=== PATIENT | male | born 1980 | race African-American/Black ===

== ENCOUNTER 2016-08-01 10:13 | Inpatient (IN) | payer BC, MEDICAID ==
[~2016-08-01] VITALS: Ht 180.3 cm; Wt 81.6 kg
[2016-08-01] VITALS (17 sets, daily range): BP systolic 101–164; BP diastolic 58–118
[2016-08-01] MEDS ORDERED: fentaNYL PF VIAL 100 MCG/2 ML VIAL IV ONE ×2 (10:30→11:15)
[2016-08-01] MEDS ORDERED: HEPARIN for IV BOLUS 10,000 UNIT/10 ML VIAL. IV ONE ×2 (10:30→11:30)
[2016-08-01 10:32] LABS: BASO # 0.1 x10^3/uL (0.0-0.2); BASO % 1 % (0-3); EOS % 3 % (0-3); HEMATOCRIT 49.8 % (39.0-53.0); HEMOGLOBIN 17.2 g/dL (13.0-17.5); LYMPH # 4.2 x10^3/uL (1.0-4.8); LYMPH % 40 % (24-48); MEAN CORPUSCULAR HEMOGLOBIN 31 pg (25-35); MEAN CORPUSCULAR HGB CONC 35 g/dL (31-37); MEAN CORPUSCULAR VOLUME 89 fL (79-100); MONO % 6 % (0-9); NEUT % 51 % (31-73); PLATELET COUNT 299 x10^3/uL (140-400); RED BLOOD COUNT 5.61 x10^6/uL (4.30-5.70); RED CELL DISTRIBUTION WIDTH 15.5 % (11.5-14.5); WHITE BLOOD COUNT 10.5 x10^3/uL (4.0-11.0)
[2016-08-01 10:42] LABS: PROTHROMBIN TIME PATIENT 12.1 SEC (11.7-14.0)
[2016-08-01] MEDS ORDERED: LIDOCAINE 2% 20 ML VIAL. ONE (10:43)
[2016-08-01] MEDS ORDERED: IOHEXOL 300 MG/ML 100ML VIAL. ONE (10:43)
[2016-08-01] MEDS ORDERED: HEPARIN for ARTERIAL LINE 1,500 ML ONE (10:43)
[2016-08-01] MEDS ORDERED: MIDAZOLAM HCL/PF 2 MG/2 ML VIAL. ONE ×2 (10:43→10:44)
[2016-08-01] MEDS ORDERED: fentaNYL PF VIAL 100 MCG/2 ML VIAL ONE (10:44)
[2016-08-01] MEDS ORDERED: IODIXANOL 320 MG/ML 100 ML VIAL. ONE ×2 (10:45→11:28)
[2016-08-01 10:47] LABS: CALCIUM 10.1 mg/dL (8.5-10.1); CREATININE 2.6 mg/dL (0.7-1.3); GFR 27.9; POTASSIUM 3.2 mmol/L (3.5-5.1)
[2016-08-01 10:53] LABS: ALBUMIN/GLOBULIN RATIO 0.9 (1.0-1.7); TOTAL BILIRUBIN 0.6 mg/dL (0.2-1.0); TOTAL PROTEIN 8.6 g/dL (6.4-8.2)
--- NOTE | 2016-08-01 11:00 | RAD ---
Indication chest pain. A single view of the chest was obtained. No prior imaging is available. The heart and pulmonary vessels appear normal. The lungs are clear. There is no pleural fluid or pneumothorax. Visualized bony structures appear grossly intact. IMPRESSION: No acute or focal process is seen in the chest
[2016-08-01] MEDS ORDERED: LIDOCAINE 2% 20 ML VIAL. IJ ONE (11:15)
[2016-08-01] MEDS ORDERED: MIDAZOLAM HCL/PF 2 MG/2 ML VIAL. IV ONE (11:15)
[2016-08-01] MEDS ORDERED: IODIXANOL 320 MG/ML 100 ML VIAL. IART ONE (11:15)
[2016-08-01] MEDS ORDERED: TIROFIBAN 12.5MG -0.9% NS 250 ML IV ONE (11:16)
[2016-08-01] MEDS ORDERED: HEPARIN for IV BOLUS 10,000 UNIT/10 ML VIAL. ONE (11:16)
[2016-08-01] MEDS ORDERED: ATROPINE 0.5 MG/5 ML DISP.SYRIN. ONE (11:29)
[2016-08-01] MEDS ORDERED: TIROFIBAN 12.5MG -0.9% NS 250 ML IV PRN ×2 (11:30→12:30)
[2016-08-01] MEDS ORDERED: ONDANSETRON PF 4 MG/2 ML VIAL. IV PRN (11:30)
[2016-08-01] MEDS ORDERED: TICAGRELOR 90 MG TABLET. ONE (11:42)
[2016-08-01] MEDS ORDERED: TICAGRELOR 90 MG TABLET. PO ONE (11:45)
[2016-08-01] MEDS ORDERED: ASPIRIN 325 MG TABLET ONE (11:48)
[2016-08-01] MEDS ORDERED: IV NORMAL SALINE 1000ML BAG 1,000 ML IV ONE (12:00)
--- NOTE | 2016-08-01 12:15 | PDOC2 ---
CONSULT Date of Consult Date of Consult DATE: 08/01/16 TIME: 12:05 Reason for Consult Reason for Consult: Syncope and chest pain Referring Physician Referring Physician: Dr. Mcgee Identification/Chief Complaint Chief Complaint Chest pain Source Source: Patient History of Present Illness Reason for Visit: The patient is a 36 year old male who had a syncopal episode at work..He then developed chest pressure. Paramedics were called and an EKG suggested an anterior STEMI. The patient was transported to the ER. Repeat ELG confirmed a probable STEMI and the patient was treated with ASA , heparin and pain medications. The patient is a difficult historian at this time but reports a history of HTN and a family history of CAD. Past Medical History Cardiovascular: HTN Past Surgical History Past Surgical History: No pertinent history Family History Family History: Coronary Artery Disease Social History No Current Medications Current Medications Current Medications Fentanyl Citrate (Fentanyl 2ml Vial) 75 mcg 1X ONCE IV Last administered on t 10:22; Start 08/01/16 at 10:30; Stop 08/01/16 at 10:31; Status DC Heparin Sodium (Porcine) (Heparin Sodium) 4,000 unit 1X ONCE IV Last administered on 08/01/16t 10:29; Start 08/01/16 at 10:30; Stop 08/01/16 at 10:31 ; Status DC Iohexol (Omnipaque 300 Mg/ml) 100 ml STK-MED ONCE .ROUTE ; Start 08/01/16 at 10: 43; Stop 08/01/16 at 10:44; Status DC Heparin Sodium/ Sodium Chloride 1,500 ml @ As Directed STK-MED ONCE .ROUTE ; Start 08/01/16 at 10:43; Stop 08/01/16 at 10:44; Status DC Lidocaine HCl 20 ml STK-MED ONCE .ROUTE ; Start 08/01/16 at 10:43; Stop at 10:44; Status DC Midazolam HCl (Versed) 2 mg STK-MED ONCE .ROUTE ; Start 08/01/16 at 10:43; Stop 08/01/16 at 10:44; Status DC Midazolam HCl (Versed) 2 mg STK-MED ONCE .ROUTE ; Start 08/01/16 at 10:44; Stop 08/01/16 at 10:45; Status DC Fentanyl Citrate (Fentanyl 2ml Vial) 100 mcg STK-MED ONCE .ROUTE ; Start at 10:44; Stop 08/01/16 at 10:45; Status DC Iodixanol (Visipaque 320) 100 ml STK-MED ONCE .ROUTE ; Start 08/01/16 at 10:45; Stop 08/01/16 at 10:46; Status DC Heparin Sodium/ Sodium Chloride 1,000 unit 1X ONCE IART ; Start 08/01/16 at 11: 15; Stop 08/01/16 at 11:16; Status DC Midazolam HCl (Versed) 2 mg 1X ONCE IV ; Start 08/01/16 at 11:15; Stop at 11:16; Status DC Fentanyl Citrate (Fentanyl 2ml Vial) 100 mcg 1X ONCE IV ; Start 08/01/16 at 11: 15; Stop 08/01/16 at 11:16; Status DC Iodixanol (Visipaque 320) 100 ml 1X ONCE IART ; Start 08/01/16 at 11:15; Stop 08/01/16 at 11:16; Status DC Lidocaine HCl 20 ml 1X ONCE IJ ; Start 08/01/16 at 11:15; Stop 08/01/16 at 11: 16; Status DC Heparin Sodium (Porcine) (Heparin Sodium) 10,000 unit STK-MED ONCE .ROUTE ; Start 08/01/16 at 11:16; Stop 08/01/16 at 11:17; Status DC Tirofiban/Sodium Chloride 250 ml @ As Directed STK-MED ONCE IV ; Start at 11:16; Stop 08/01/16 at 11:17; Status DC Heparin Sodium (Porcine) (Heparin Sodium) 4,000 unit 1X ONCE IV ; Start at 11:30; Stop 08/01/16 at 11:31; Status DC Tirofiban/Sodium Chloride 250 ml @ 0 mls/hr CONT PRN IV PER PROTOCOL; Start 01/07 at 11:30; Stop 08/02/16 at 05:29 Ondansetron HCl (Zofran) 4 mg PRN Q8HRS PRN IV NAUSEA/VOMITING; Start 08/01/16 at 11:30; Stop 08/02/16 at 11:29 Fentanyl Citrate (Fentanyl 2ml Vial) 50 mcg PRN Q2HR PRN IV PAIN; Start at 11:30; Stop 08/02/16 at 11:29 Iodixanol (Visipaque 320) 100 ml STK-MED ONCE .ROUTE ; Start 08/01/16 at 11:28; Stop 08/01/16 at 11:29; Status DC Atropine Sulfate 0.5 mg STK-MED ONCE .ROUTE ; Start 08/01/16 at 11:29; Stop 01/07 at 11:30; Status DC Dopamine HCl/ Dextrose 250 ml @ As Directed STK-MED ONCE IV ; Start 08/01/16 at 11:31; Stop 08/01/16 at 11:32; Status DC Ticagrelor (Brilinta) 90 mg STK-MED ONCE .ROUTE ; Start 08/01/16 at 11:42; Stop 08/01/16 at 11:43; Status DC Ticagrelor (Brilinta) 180 mg 1X ONCE PO ; Start 08/01/16 at 11:45; Stop at 11:48; Status DC Dopamine HCl/ Dextrose 250 ml @ 14.884 mls/ hr 1X ONCE IV ; Start 08/01/16 at 12:00; Stop 08/02/16 at 04:47 Aspirin (Georgina Aspirin) 325 mg STK-MED ONCE .ROUTE ; Start 08/01/16 at 11:48; Stop 08/01/16 at 11:49; Status DC Sodium Chloride 1,000 ml @ 125 mls/hr 1X ONCE IV ; Start 08/01/16 at 12:00; Stop 08/01/16 at 19:59; Status UNV Allergies Allergies: Coded Allergies: No Known Drug Allergies (Unverified , 08/01/16) ROS Respiratory: YES: Shortness of breath Cardiovascular: yes Chest Pain Physical Exam General: moderate distress HEENT: Atraumatic Lungs: Clear to auscultation Heart: Other (rate 102.regular rhythm) Vitals VITALS Vital Signs Date Time Temp Pulse Resp B/P (MAP) Pulse Ox O2 Delivery O2 Flow Rate FiO2 08/01/16 11:51 73 16 95 Nasal Cannula 2.0 08/01/16 10:44 118/89 (99) 08/01/16 10:13 97.8 97.8 Labs Labs Laboratory Tests Test 08/01/16 10:16 White Blood Count 10.5 x10^3/uL (4.0-11.0) Red Blood Count 5.61 x10^6/uL (4.30-5.70) Hemoglobin 17.2 g/dL (13.0-17.5) Hematocrit 49.8 % (39.0-53.0) Mean Corpuscular Volume 89 fL (79-100) Mean Corpuscular Hemoglobin 31 pg (25-35) Mean Corpuscular Hemoglobin Concent 35 g/dL (31-37) Red Cell Distribution Width 15.5 % (11.5-14.5) Platelet Count 299 x10^3/uL (140-400) Neutrophils (%) (Auto) 51 % (31-73) Lymphocytes (%) (Auto) 40 % (24-48) Monocytes (%) (Auto) 6 % (0-9) Eosinophils (%) (Auto) 3 % (0-3) Basophils (%) (Auto) 1 % (0-3) Neutrophils # (Auto) 5.4 x10^3uL (1.8-7.7) Lymphocytes # (Auto) 4.2 x10^3/uL (1.0-4.8) Monocytes # (Auto) 0.6 x10^3/uL (0.0-1.1) Eosinophils # (Auto) 0.3 x10^3/uL (0.0-0.7) Basophils # (Auto) 0.1 x10^3/uL (0.0-0.2) Prothrombin Time 12.1 SEC (11.7-14.0) Prothromb Time International Ratio 1.0 (0.8-1.1) Activated Partial Thromboplast Time 25 SEC (24-38) Sodium Level 138 mmol/L (136-145) Potassium Level 3.2 mmol/L (3.5-5.1) Chloride Level 100 mmol/L (98-107) Carbon Dioxide Level 20 mmol/L (21-32) Anion Gap 18 (6-14) Blood Urea Nitrogen 20 mg/dL (8-26) Creatinine 2.6 mg/dL (0.7-1.3) Estimated GFR (Cockcroft-Gault) 27.9 BUN/Creatinine Ratio 8 (6-20) Glucose Level 159 mg/dL (70-99) Calcium Level 10.1 mg/dL (8.5-10.1) Magnesium Level 2.0 mg/dL (1.8-2.4) Total Bilirubin 0.6 mg/dL (0.2-1.0) Aspartate Amino Transf (AST/SGOT) 28 U/L (15-37) Alanine Aminotransferase (ALT/SGPT) 58 U/L (16-63) Alkaline Phosphatase 126 U/L (46-116) Creatine Kinase 426 U/L (39-308) Troponin I Quantitative < 0.017 ng/mL (0.000-0.055) MP-Fdn-Q-Type Natriuretic Peptide 1313 pg/mL (0-124) Total Protein 8.6 g/dL (6.4-8.2) Albumin 4.0 g/dL (3.4-5.0) Albumin/Globulin Ratio 0.9 (1.0-1.7) Lipase 580 U/L (73-393) Ethyl Alcohol Level < 10 mg/dL (0-10) Laboratory Tests Test 08/01/16 10:16 White Blood Count 10.5 x10^3/uL (4.0-11.0) Red Blood Count 5.61 x10^6/uL (4.30-5.70) Hemoglobin 17.2 g/dL (13.0-17.5) Hematocrit 49.8 % (39.0-53.0) Mean Corpuscular Volume 89 fL (79-100) Mean Corpuscular Hemoglobin 31 pg (25-35) Mean Corpuscular Hemoglobin Concent 35 g/dL (31-37) Red Cell Distribution Width 15.5 % (11.5-14.5) Platelet Count 299 x10^3/uL (140-400) Neutrophils (%) (Auto) 51 % (31-73) Lymphocytes (%) (Auto) 40 % (24-48) Monocytes (%) (Auto) 6 % (0-9) Eosinophils (%) (Auto) 3 % (0-3) Basophils (%) (Auto) 1 % (0-3) Neutrophils # (Auto) 5.4 x10^3uL (1.8-7.7) Lymphocytes # (Auto) 4.2 x10^3/uL (1.0-4.8) Monocytes # (Auto) 0.6 x10^3/uL (0.0-1.1) Eosinophils # (Auto) 0.3 x10^3/uL (0.0-0.7) Basophils # (Auto) 0.1 x10^3/uL (0.0-0.2) Prothrombin Time 12.1 SEC (11.7-14.0) Prothromb Time International Ratio 1.0 (0.8-1.1) Activated Partial Thromboplast Time 25 SEC (24-38) Sodium Level 138 mmol/L (136-145) Potassium Level 3.2 mmol/L (3.5-5.1) Chloride Level 100 mmol/L (98-107) Carbon Dioxide Level 20 mmol/L (21-32) Anion Gap 18 (6-14) Blood Urea Nitrogen 20 mg/dL (8-26) Creatinine 2.6 mg/dL (0.7-1.3) Estimated GFR (Cockcroft-Gault) 27.9 BUN/Creatinine Ratio 8 (6-20) Glucose Level 159 mg/dL (70-99) Calcium Level 10.1 mg/dL (8.5-10.1) Magnesium Level 2.0 mg/dL (1.8-2.4) Total Bilirubin 0.6 mg/dL (0.2-1.0) Aspartate Amino Transf (AST/SGOT) 28 U/L (15-37) Alanine Aminotransferase (ALT/SGPT) 58 U/L (16-63) Alkaline Phosphatase 126 U/L (46-116) Creatine Kinase 426 U/L (39-308) Troponin I Quantitative < 0.017 ng/mL (0.000-0.055) TR-Xfv-I-Type Natriuretic Peptide 1313 pg/mL (0-124) Total Protein 8.6 g/dL (6.4-8.2) Albumin 4.0 g/dL (3.4-5.0) Albumin/Globulin Ratio 0.9 (1.0-1.7) Lipase 580 U/L (73-393) Ethyl Alcohol Level < 10 mg/dL (0-10) Assessment/Plan Assessment/Plan 1. STEMI. The patient presented with syncope ( possible VT) and continues to have chest pain. EKG is consistent with a STEMI. Treated with ASA and heparin. Creatine elevated at 2.6 but in this setting the patient requires an emergency cath. Riska and benefits including renal damage discussed with the patient. He has agreed to proceed. No family is present at this time. 2. Renal disease. Creatinine 2.6. IV fluids. Continuing to monitor. 3. HTN. Adjust medication post cath. 4. Probable HLD. Check morning lipid panel. Thank you for allowing us to participate in the care of your patient. ALEXANDRA MATA MD Aug 01, 2016 12:15
--- NOTE | 2016-08-01 12:18 | PDOC4 ---
Operative Note Operative Note Brief cath note. Emergency cath in setting of a STEMI. AO. 104/72 Left main. Short, no lesions. LAD. Large vessel, mid occlusion. LCX. 20% distal disease. RCA. 20% proximal disease. PCI 3.5 x 28 bare metal multi-link vision stent. 0% residual. Post STEMI and PCI protocol. Monitoring renal function. Discussed with the patient and his family. Full report to follow. ALEXANDRA MATA MD Aug 01, 2016 12:18
[2016-08-01] MEDS ORDERED: AMIODARONE 150 MG in IV DEXTROSE 5% 100 ML IV PRN (12:30)
[2016-08-01] MEDS ORDERED: LIDOCAINE 2% 100 MG/5 ML SYRINGE. IV PRN (12:30)
[2016-08-01] MEDS ORDERED: fentaNYL PF VIAL 100 MCG/2 ML VIAL IV PRN (12:30)
[2016-08-01] MEDS ORDERED: NITROGLYCERIN SUBLINGUAL 0.4 MG BOTTLE OF 25. SL PRN (12:30)
[2016-08-01] MEDS ORDERED: 0.9 % SODIUM CHLORIDE 10 ML DISP.SYRIN. IV PRN (12:30)
[2016-08-01] MEDS ORDERED: ACETAMINOPHEN 325 MG TABLET. PO PRN (12:30)
[2016-08-01] MEDS ORDERED: ATROPINE 0.5 MG/5 ML DISP.SYRIN. IV PRN (12:30)
[2016-08-01] MEDS ORDERED: POTASSIUM CHLORIDE 20 MEQ TABLET.ER. PO ONE (12:45)
--- NOTE | 2016-08-01 12:56 | PHYS DOC ---
Past Medical History Past Medical History: Hypertension, Other Additional Past Medical Histor: "HEARING VOICES" Past Surgical History: Other Additional Past Surgical Histo: UNKNOWN Additional Information: SMOKES CIGARA, 1 BLACK & MILD A DAY Alcohol Use: Occasionally Drug Use: Methamphetamine, Phencyclidine, Other Social History Narrative: USED METH/WET/PCP OVER THE WEEKEND Adult General Chief Complaint Chief Complaint: CHEST PAIN-CARDIAC NATURE HPI HPI Patient is a 36 year old male who is a employee at [employer] he had sudden onset of chest pain and diaphoresis approximately 1 hour prior to arrival. He is difficult to get history of frame as he admits to doing wet and PCP. Timeframe of this is unclear. He admits to high blood pressure and takes atenolol. 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 Review of Systems Review of Systems Unable to obtain due to medical condition. Current Medications Current Medications Current Medications Medications (Trade) Dose Ordered Sig/Wilbur Start Time Stop Time Status Last Admin Dose Admin Fentanyl Citrate (Fentanyl 2ml Vial) 100 mcg 1X ONCE 08/01/16 11:15 08/01/16 11:16 DC 08/01/16 12:09 37.5 MCG Heparin Sodium (Porcine) (Heparin Sodium) 4,000 unit 1X ONCE 08/01/16 10:30 08/01/16 10:31 DC 08/01/16 10:29 4,000 UNIT Heparin Sodium/ Sodium Chloride 1,000 unit 1X ONCE 08/01/16 11:15 08/01/16 11:16 DC 08/01/16 12:10 1,000 UNIT Iodixanol (Visipaque 320) 100 ml 1X ONCE 08/01/16 11:15 08/01/16 11:16 DC 08/01/16 12:06 190 ML Iohexol (Omnipaque 300 Mg/ml) 100 ml STK-MED ONCE 08/01/16 10:43 08/01/16 10:44 DC Lidocaine HCl 20 ml 1X ONCE 08/01/16 11:15 08/01/16 11:16 DC 08/01/16 12:06 18 ML Midazolam HCl (Versed) 2 mg 1X ONCE 08/01/16 11:15 08/01/16 11:16 DC 08/01/16 12:09 3 MG Allergies Allergies Allergies Coded Allergies Type Severity Reaction Last Updated Verified No Known Drug Allergies 08/01/16 No Physical Exam Physical Exam Constitutional: Ill diaphoretic and toxic appearing HENT: Normocephalic, atraumatic, bilateral external ears normal, oropharynx moist, no oral exudates, nose normal. [] Eyes: PERRLA, EOMI, conjunctiva normal, no discharge. [] Neck: Normal range of motion, no tenderness, supple, no stridor. [] Cardiovascular:Heart rate regular rhythm, no murmur [] Lungs & Thorax: Bilateral breath sounds clear to auscultation [] Abdomen: Bowel sounds normal, soft, no tenderness, no masses, no pulsatile masses. [] Skin: Warm, dry, no erythema, no rash. [] Back: No tenderness, no CVA tenderness. [] Extremities: No tenderness, no cyanosis, no clubbing, ROM intact, no edema. [] Neurologic: Alert and oriented X 2, moves all extremities Current Patient Data Vital Signs Vital Signs Date Time Temp Pulse Resp B/P (MAP) Pulse Ox O2 Delivery O2 Flow Rate FiO2 08/01/16 10:44 60 28 118/89 (99) 95 Room Air 08/01/16 10:13 97.8 97.8 Lab Values Laboratory Tests Test 08/01/16 10:16 White Blood Count 10.5 x10^3/uL (4.0-11.0) Red Blood Count 5.61 x10^6/uL (4.30-5.70) Hemoglobin 17.2 g/dL (13.0-17.5) Hematocrit 49.8 % (39.0-53.0) Mean Corpuscular Volume 89 fL (79-100) Mean Corpuscular Hemoglobin 31 pg (25-35) Mean Corpuscular Hemoglobin Concent 35 g/dL (31-37) Red Cell Distribution Width 15.5 % (11.5-14.5) H Platelet Count 299 x10^3/uL (140-400) Neutrophils (%) (Auto) 51 % (31-73) Lymphocytes (%) (Auto) 40 % (24-48) Monocytes (%) (Auto) 6 % (0-9) Eosinophils (%) (Auto) 3 % (0-3) Basophils (%) (Auto) 1 % (0-3) Neutrophils # (Auto) 5.4 x10^3uL (1.8-7.7) Lymphocytes # (Auto) 4.2 x10^3/uL (1.0-4.8) Monocytes # (Auto) 0.6 x10^3/uL (0.0-1.1) Eosinophils # (Auto) 0.3 x10^3/uL (0.0-0.7) Basophils # (Auto) 0.1 x10^3/uL (0.0-0.2) Prothrombin Time 12.1 SEC (11.7-14.0) Prothrombin Time INR 1.0 (0.8-1.1) PTT 25 SEC (24-38) Sodium Level 138 mmol/L (136-145) Potassium Level 3.2 mmol/L (3.5-5.1) L Chloride Level 100 mmol/L (98-107) Carbon Dioxide Level 20 mmol/L (21-32) L Anion Gap 18 (6-14) H Blood Urea Nitrogen 20 mg/dL (8-26) Creatinine 2.6 mg/dL (0.7-1.3) H Estimated GFR (Cockcroft-Gault) 27.9 BUN/Creatinine Ratio 8 (6-20) Glucose Level 159 mg/dL (70-99) H Calcium Level 10.1 mg/dL (8.5-10.1) Magnesium Level 2.0 mg/dL (1.8-2.4) Total Bilirubin 0.6 mg/dL (0.2-1.0) Aspartate Amino Transferase (AST) 28 U/L (15-37) Alanine Aminotransferase (ALT) 58 U/L (16-63) Alkaline Phosphatase 126 U/L (46-116) H Creatine Kinase 426 U/L (39-308) H Troponin I Quantitative < 0.017 ng/mL (0.000-0.055) AD-Nms-O-Type Natriuretic Peptide 1313 pg/mL (0-124) H Total Protein 8.6 g/dL (6.4-8.2) H Albumin 4.0 g/dL (3.4-5.0) Albumin/Globulin Ratio 0.9 (1.0-1.7) L Lipase 580 U/L (73-393) H Ethyl Alcohol Level < 10 mg/dL (0-10) Laboratory Tests 08/01/16 10:16 Laboratory Tests 08/01/16 10:[address] elevation in leads V1 through V5 with some reciprocal depression in leads 3 and aVF Radiology/Procedures Radiology/Procedures Indication chest pain. A single view of the chest was obtained. No prior imaging is available. The heart and pulmonary vessels appear normal. The lungs are clear. There is no pleural fluid or pneumothorax. Visualized bony structures appear grossly intact. IMPRESSION: No acute or focal process is seen in the chest DICTATED and SIGNED BY: CHRISTIANA AVERY MD DATE: 08/01/16 1056 Course & Med Decision Making Course & Med Decision Making Patient is critically ill. ASA and heparin given. Patient taken to [facility] emergently. Critical care time of 35 mins Dragon Disclaimer Dragon Disclaimer This electronic medical record was generated, in whole or in part, using a voice recognition dictation system. Departure Departure Impression: Primary Impression: STEMI (ST elevation myocardial infarction) Additional Impression: Drug abuse Disposition: ADMITTED INPATIENT Admitting Physician: Other (REUSCH) Condition: CRITICAL Referrals: NO PCP (PCP) Problem Qualifiers Primary Impression: STEMI (ST elevation myocardial infarction) Involved coronary artery: LAD coronary artery Qualified Codes: I21.02 - ST elevation (STEMI) myocardial infarction involving left anterior descending coronary artery TAVO PETTY DO Aug 01, 2016 12:56
[2016-08-01] MEDS ORDERED: ATEN1TAB4 PO (14:07)
[2016-08-01] MEDS ORDERED: EFAV1TAB PO (14:07)
[2016-08-01] MEDS ORDERED: PARO40TA61 PO (14:07)
--- NOTE | 2016-08-01 14:50 | ACF ---
Admission Forms Criteria MYOCARDIAL INFARCTION Clinical Indications for Admission to Inpatient Care (Place 'X' for any and all applicable criteria): Admission is indicated for 1 or more of the following (1)(2)(3)(4): [X]I. Acute MD [ ]II. Contraindications and/or Inappropriate clinical situations for Observational Care in patients with Myocardial Infarction, when ANY ONE of the following is required: [ ]a) Patient with High risk of cardiac embolism (e.g, patients with previous cardiac embolism, LVEF < 40%, age >75 and patients with prosthetic valve) 18 [ ]b) Patient with Moderate risk including DM patient, CAD and patient aged 65-75 18 [ ]c) Patient with any change in cardiac biomarker especially troponin should be managed as high risk in an inpatient setting 19 [ ]d) Physician judgement irrespective of ECG and other diagnostic findings 20 [ ]III.General contraindications and/or Inappropriate clinical situations for Observational Care in patients with Myocardial Infarction, when ANY ONE of the following is required: [ ]a) Prediction of prolongation of LOS based on ANY ONE of the following may be considered as a contraindication for observational care 2, 3, 4, 5, 6, 7, 8, 9, 10, 11 [ ]i) Age > 65 yrs. [ ]ii) Patient arriving by ambulance [ ]iii) Patient with high acuity [ ]iv) Patient requiring vital sign monitoring [ ]v) Patient on IV medication [ ]b) Systolic blood pressures greater than or equal to 180mmHg 3,12 [ ]c) Patient with altered mental status including delirium and other alteration of consciousness, (3) [ ]d) Patient whose discharge disposition will be to a shelter home or rehabilitation home should not be managed in Emergency Department Observation Unit. CMS rule requires 3 days hospital stay before such placement. 3,13 [ ]e) Patient with failure to thrive due to broad array of etiologies 3 ,16,17 [ ]f) Inability to ambulate 3,14 Extended stay beyond goal length of stay may be needed for (1)(18)(20)(24)(25): [ ]a) Hemodynamic instability, persisting symptoms after intensive medical management, or recurring severe, prolonged symptoms [ ]b) Intravascular procedural complications such as acute vessel closure, stent thrombosis, stent malposition, or vessel dissection (26)(27)(28) [ ]c) Extravascular procedural complications such as retroperitoneal hematoma , pericardial effusion, or cardiac tamponade [ ]d) Entry site complications causing bleeding, hematoma or distal ischemia and requiring ongoing monitoring, surgical repair or surgical thrombectomy. Dangerous arrhythmia [ ]e) Complicated percutaneous coronary intervention (e.g., unsuccessful percutaneous coronary intervention or percutaneous coronary intervention of non- [place] vessel) [ ]f) Urgent or emergent surgery for complications of MD (e.g., ventricular rupture, valvular insufficiency) [ ]g) Surgical revascularization via coronary artery bypass graft [ ]h) Heart failure (e.g., pulmonary edema) [ ]i) Unstable pulmonary comorbidities, including COPD or pneumonia (31) [ ]j) Acute renal failure The original [facility] content created by [facility] has been revised. The portions of the content which have been revised are identified through the use of italic text or in bold, and [facility] has neither reviewed nor approved the modified material. All other unmodified content is copyright [employer] Please see references footnoted in the original [employer] edition 2016 Admission Criteria Met?: Yes REGLA HEREDIA Aug 01, 2016 14:50
[2016-08-01] MEDS: IV NORMAL SALINE 1000ML BAG 1,000 ML IV SCH (14:56)
[2016-08-01] MEDS: LISINOPRIL 5 MG TABLET. PO SCH (14:57)
--- NOTE | 2016-08-01 16:08 | EKG ---
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
[2016-08-01] MEDS ORDERED: LORazepam 0.5 MG TABLET PO ONE (18:15)
[2016-08-01] MEDS: fentaNYL PF VIAL 100 MCG/2 ML VIAL IV PRN ×3 (19:15→22:28)
[2016-08-01] MEDS: LORazepam 0.5 MG TABLET PO PRN (20:44)
[2016-08-01] MEDS: ATORVASTATIN CALCIUM 20 MG TABLET PO SCH (20:45)
[2016-08-01] MEDS: METOPROLOL TART IMMED RELEASE 25 MG TABLET. PO SCH (20:45)
--- NOTE | 2016-08-01 22:04 | HP ---
ADMIT DATE: 08/01/2016 CHIEF COMPLAINT: Chest pain. HISTORY OF PRESENT ILLNESS: The patient is a 36-year-old gentleman with past medical history of hypertension who presented after a syncopal episode at work. 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 He denies any chest pain or other pain during the entire episode. He then passed out and the EMS was called. EKG initially suggested anterior STEMI and he was brought to the ER. The patient was treated with aspirin, started on heparin, pain medications and taken to the [facility] by Dr. Mirza. LAD had an occlusion mid and a bare metal stent was placed. The patient is now recovering in the ICU. PAST MEDICAL HISTORY: Hypertension. FAMILY HISTORY: Mother with heart disease at age 50. SOCIAL HISTORY: Lives with his parents, smokes about a pack a day, uses meth, has been partying over the past few days with meth and alcohol. ALLERGIES: No known drug allergies. MEDICATIONS: The patient has a prescription for atenolol, which he is not taking also HIV medication and Paxil. REVIEW OF SYSTEMS: Currently, completely resolved. He is requesting a nicotine patch. PHYSICAL EXAMINATION: VITAL SIGNS: From today show a blood pressure of 147/104, heart rate at 78, respiratory rate at 20. He is afebrile. GENERAL: This is a well-nourished 36-year-old gentleman, awake, alert, in no acute distress. HEENT: Shows no scleral icterus. NECK: Supple. LUNGS: Clear to auscultation bilaterally. HEART: Regular rate and rhythm. ABDOMEN: Has positive bowel sounds, soft, nontender. EXTREMITIES: Show no edema. SKIN: Warm, soft and dry without any rash. LABORATORY DATA: CBC with a WBC of 10.5, hemoglobin 17.2, platelets of 299. Chemistries with a BUN and creatinine of 20 and 2.6. Electrolytes with a potassium of 3.2. LFTs essentially within normal. Toxicology, alcohol is negative. IMAGING: Chest x-ray with no acute focal process. ASSESSMENT AND PLAN: The patient is a 36-year-old gentleman with multiple risk factors who presented with ST-elevation myocardial infarction. He is now status post bare metal stent placement to the left anterior descending. Discussed with him that his risk factors including hypertension and hyperlipidemia will have to be controlled. We will start on the appropriate medications. Discussed with him that atenolol is actually a very useful medication he actually may need additional blood pressure control. He is currently pain free. We will monitor in the ICU overnight. The patient is a tobacco smoker, unfortunately we will not be able to give him nicotine patch for now, Ativan p.r.n. should be okay. We will continue his HIV medication as well as Paxil. RIDDHI MOORE MD DR: UR/nts JOB#: [id number] / [id number]
[2016-08-01] MEDS ORDERED: LISINOPRIL 2.5 MG TABLET PO ONE (22:30)
[2016-08-02] VITALS (24 sets, daily range): BP systolic 109–151; BP diastolic 63–102
[2016-08-02] MEDS: fentaNYL PF VIAL 100 MCG/2 ML VIAL IV PRN ×2 (00:20→08:39)
[2016-08-02] MEDS ORDERED: NITROGLYCERIN SUBLINGUAL 0.4 MG BOTTLE OF 25. SL ONE (02:45)
[2016-08-02 03:43] LABS: BARBITURATES NEG (NEG); BENZODIAZEPINES POS (NEG); CANNABINOIDS NEG (NEG); COCAINE NEG (NEG); METHADONE NEG (NEG); OPIATES NEG (NEG); PHENCYCLIDINE NEG (NEG)
[2016-08-02] MEDS: IV NORMAL SALINE 1000ML BAG 1,000 ML IV SCH ×2 (05:26→10:57)
[2016-08-02 05:50] LABS: BASO # 0.1 x10^3/uL (0.0-0.2); BASO % 1 % (0-3); EOS % 2 % (0-3); HEMATOCRIT 45.1 % (39.0-53.0); HEMOGLOBIN 15.5 g/dL (13.0-17.5); LYMPH # 2.6 x10^3/uL (1.0-4.8); LYMPH % 23 % (24-48); MEAN CORPUSCULAR HEMOGLOBIN 31 pg (25-35); MEAN CORPUSCULAR HGB CONC 34 g/dL (31-37); MEAN CORPUSCULAR VOLUME 90 fL (79-100); MONO % 8 % (0-9); NEUT % 67 % (31-73); PLATELET COUNT 238 x10^3/uL (140-400); RED BLOOD COUNT 5.04 x10^6/uL (4.30-5.70); RED CELL DISTRIBUTION WIDTH 15.8 % (11.5-14.5)
[2016-08-02 06:12] LABS: CALCIUM 9.1 mg/dL (8.5-10.1); CREATININE 1.7 mg/dL (0.7-1.3); GFR 55.1; POTASSIUM 3.8 mmol/L (3.5-5.1)
[2016-08-02 06:14] LABS: MAGNESIUM 2.1 mg/dL (1.8-2.4)
[2016-08-02 06:18] LABS: CHOLESTEROL/HDL RATIO 4.7
[2016-08-02] MEDS: PARoxetine 20 MG TABLET PO SCH (08:29)
[2016-08-02] MEDS: LISINOPRIL 5 MG TABLET. PO SCH (08:30)
[2016-08-02] MEDS: TENOFOVIR PO SCH (08:30)
[2016-08-02] MEDS: EFAVIRENZ PO SCH (08:30)
[2016-08-02] MEDS: EMTRICITAB PO SCH (08:30)
[2016-08-02] MEDS: ASPIRIN ENTERIC COATED 81 MG TABLET.DR. PO SCH (08:30)
[2016-08-02] MEDS: METOPROLOL TART IMMED RELEASE 25 MG TABLET. PO SCH ×2 (08:31→21:37)
[2016-08-02] MEDS: TICAGRELOR 90 MG TABLET. PO SCH ×2 (08:31→21:33)
[2016-08-02] MEDS ORDERED: NICOTINE 14MG PATCH. TD SCH (09:00)
--- NOTE | 2016-08-02 11:59 | PDOC ---
CARDIO Progress Notes Date and Time Date of Service 08/02/2016 Time of Evaluation 1159 Subjective Subjective: No Chest Pain, No shortness of breath, No Palpitations, No Dizziness Vitals Vitals Vital Signs Date Time Temp Pulse Resp B/P (MAP) Pulse Ox O2 Delivery O2 Flow Rate FiO2 08/02/16 10:58 73 26 137/92 (107) 95 Room Air 08/02/16 08:00 97.6 97.6 08/01/16 12:09 2.0 Weight Weight [ ] Input and Output Intake and Output Intake and Output 08/02/16 06:59 Intake Total 2516.9 ml Output Total 1200 ml Balance 1316.9 ml Intake Oral 650 ml IV Total 1866.9 ml Output Urine Total 1200 ml # Bowel Movements 1 Laboratory Labs Laboratory Tests Test 08/01/16 19:55 08/02/16 03:30 08/02/16 05:30 Troponin I Quantitative 532.010 ng/mL (0.000-0.055) 173.370 ng/mL (0.000-0.055) Urine Opiates Screen Neg (NEG) Urine Methadone Screen Neg (NEG) Urine Barbiturates Neg (NEG) Urine Phencyclidine Screen Neg (NEG) Urine Amphetamine/Methamphetamine Pos (NEG) Urine Benzodiazepines Screen Pos (NEG) Urine Cocaine Screen Neg (NEG) Urine Cannabinoids Screen Neg (NEG) Urine Ethyl Alcohol Neg (NEG) White Blood Count 11.0 x10^3/uL (4.0-11.0) Red Blood Count 5.04 x10^6/uL (4.30-5.70) Hemoglobin 15.5 g/dL (13.0-17.5) Hematocrit 45.1 % (39.0-53.0) Mean Corpuscular Volume 90 fL (79-100) Mean Corpuscular Hemoglobin 31 pg (25-35) Mean Corpuscular Hemoglobin Concent 34 g/dL (31-37) Red Cell Distribution Width 15.8 % (11.5-14.5) Platelet Count 238 x10^3/uL (140-400) Neutrophils (%) (Auto) 67 % (31-73) Lymphocytes (%) (Auto) 23 % (24-48) Monocytes (%) (Auto) 8 % (0-9) Eosinophils (%) (Auto) 2 % (0-3) Basophils (%) (Auto) 1 % (0-3) Neutrophils # (Auto) 7.4 x10^3uL (1.8-7.7) Lymphocytes # (Auto) 2.6 x10^3/uL (1.0-4.8) Monocytes # (Auto) 0.8 x10^3/uL (0.0-1.1) Eosinophils # (Auto) 0.2 x10^3/uL (0.0-0.7) Basophils # (Auto) 0.1 x10^3/uL (0.0-0.2) Sodium Level 138 mmol/L (136-145) Potassium Level 3.8 mmol/L (3.5-5.1) Chloride Level 103 mmol/L (98-107) Carbon Dioxide Level 23 mmol/L (21-32) Anion Gap 12 (6-14) Blood Urea Nitrogen 20 mg/dL (8-26) Creatinine 1.7 mg/dL (0.7-1.3) Estimated GFR (Cockcroft-Gault) 55.1 Glucose Level 117 mg/dL (70-99) Calcium Level 9.1 mg/dL (8.5-10.1) Magnesium Level 2.1 mg/dL (1.8-2.4) Triglycerides Level 276 mg/dL (0-150) Cholesterol Level 185 mg/dL (0-200) LDL Cholesterol, Calculated 91 mg/dL (0-100) VLDL Cholesterol, Calculated 55 mg/dL (0-40) Non-HDL Cholesterol Calculated 146 mg/dL (0-129) HDL Cholesterol 39 mg/dL (40-60) Cholesterol/HDL Ratio 4.7 Physical Exam HEENT: Neck Supple W Full Motion Chest: Symmetric LUNGS: Clear to Auscultation Heart: S1S2, RRR, no murmurs, other (tele: SR) Abdomen: Soft N/T Extremities: 2+ Dorsalis Pedis, 2+ Posterior Tibial, Other (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 STEMI troponin peaked > 500 BMS to mid LAD; DAPT for at least the next 30 days, then ASA indefinitely echo pending to evaluate LV function BB, ACEI and statin therapy 2. mixed hyperlipidemia statin therapy 3. HTN not well controlled increased BB dose 4. polysubstance abuse tobacco - nicoderm patch meth May transfer to [facility] ? 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
[2016-08-02] MEDS: NICOTINE 14MG PATCH. TD SCH (12:25)
[2016-08-02] MEDS ORDERED: ACETAMINOPHEN 500 MG TABLET PO PRN (12:30)
--- NOTE | 2016-08-02 13:17 | CARD ---
APPROVED REPORT EXAM: Two-dimensional and M-mode echocardiogram with Doppler and color Doppler. Other Information Quality : Good INDICATION Status/Post MD 2D DIMENSIONS RVDd2.9 (2.9-3.5cm)Left Atrium(2D)3.5 (1.6-4.0cm) IVSd1.6 (0.7-1.1cm)Aortic Root(2D)3.5 (2.0-3.7cm) LVDd4.7 (3.9-5.9cm)LVOT Diameter2.0 (1.8-2.4cm) PWd1.3 (0.7-1.1cm)LVDs3.7 (2.5-4.0cm) FS (%) 21.1 %SV43.3 ml LVEF(%)40.0 (>50%) Aortic Valve AoV Peak Juancho.113.6cm/Leni Peak GR.5.2mmHg Mitral Valve MV E Tgpekery84.6cm/sMV DECEL IAME324um MV A Eoksybkf29.9cm/sE/A Ratio1.0 TDI Lateral E' P. V5.11cm/sMedial E' P. V4.01cm/s E/Lateral E'14.6E/Medial E'18.6 Tricuspid Valve TR P. Paqomwpz689ep/sRAP [id number] TR Peak Gr.98yhRhLQYK74tfSh Pulmonary Vein S1 Eqwtqqju98.5cm/sS2 Hudbojcy65.87cm/s D2 Zxgdawpx16.9cm/s LEFT VENTRICLE The left ventricle is normal size. There is moderate concentric left ventricular hypertrophy. The eje ction fraction is moderately impaired. The Ejection Fraction is 35-40%. There is global hypokinesis o f the left ventricle. There is moderate to severe hypokinesis of the basal to distal anterior wall, s eptum and apex. Transmitral Doppler flow pattern is Grade I-abnormal relaxation pattern. RIGHT VENTRICLE The right ventricle is normal size. The right ventricular systolic function is normal. ATRIA The left atrium size is normal. The right atrium size is normal. The interatrial septum is intact wit h no evidence for an atrial septal defect or patent foramen ovale as noted on 2-D or Doppler imaging. AORTIC VALVE The aortic valve is normal in structure and function. Doppler and Color Flow revealed no significant aortic regurgitation. There is no significant aortic valvular stenosis. MITRAL VALVE The mitral valve is normal in structure and function. There is no evidence of mitral valve prolapse. There is no mitral valve stenosis. Doppler and Color-flow revealed mild mitral regurgitation. TRICUSPID VALVE The tricuspid valve is normal in structure and function. Doppler and Color Flow revealed trace tricus pid regurgitation. There is mild pulmonary hypertension. The PA pressure was estimated at 42 mmHg. Th ere is no tricuspid valve stenosis. PULMONIC VALVE Doppler and Color Flow revealed mild pulmonic valvular regurgitation. There is no pulmonic valvular s tenosis. GREAT VESSELS The aortic root is normal in size. The ascending aorta is normal in size. The IVC is normal in size a nd collapses >50% with inspiration. PERICARDIAL EFFUSION There is no evidence of significant pericardial effusion. Critical Notification Critical Value: No <Conclusion> The ejection fraction is moderately impaired. The Ejection Fraction is 35-40%. There is global hypokinesis of the left ventricle. There is moderate to severe hypokinesis of the bas al to distal anterior wall, septum and apex. Doppler and Color Flow revealed trace tricuspid regurgitation. There is mild pulmonary hypertension. The PA pressure was estimated at 42 mmHg.
--- NOTE | 2016-08-02 13:56 | PDOC ---
PROGRESS NOTES Chief Complaint Chief Complaint cc: chest pain A/P 1. STEMI S/P BMS to mid LAD; DAPT , echo pending. Monitor for any athymias, no acute events overnight. 2. mixed hyperlipidemia: statin Therapy 3. HTN: not controlled. 4. polysubstance abuse: nicotine patch 5. Pain chest pain : IV fentanyl prn,limit narcotics. 6. GARRET: due to VMN, IV HYDRATION BMP IN AM Vitals Vitals Vital Signs Date Time Temp Pulse Resp B/P (MAP) Pulse Ox O2 Delivery O2 Flow Rate FiO2 08/02/16 13:00 78 22 117/73 (88) 95 08/02/16 12:00 98.0 Room Air 98.0 08/02/16 12:00 2.0 Physical Exam General: Alert, Oriented X3, Cooperative, moderate distress Heart: Normal S1, Normal S2, Other Lungs: Clear Abdomen: Normal bowel sounds Extremities: No clubbing, No cyanosis Labs LABS Laboratory Tests Test 08/01/16 19:55 08/02/16 03:30 08/02/16 05:30 Troponin I Quantitative 532.010 ng/mL (0.000-0.055) 173.370 ng/mL (0.000-0.055) Urine Opiates Screen Neg (NEG) Urine Methadone Screen Neg (NEG) Urine Barbiturates Neg (NEG) Urine Phencyclidine Screen Neg (NEG) Urine Amphetamine/Methamphetamine Pos (NEG) Urine Benzodiazepines Screen Pos (NEG) Urine Cocaine Screen Neg (NEG) Urine Cannabinoids Screen Neg (NEG) Urine Ethyl Alcohol Neg (NEG) White Blood Count 11.0 x10^3/uL (4.0-11.0) Red Blood Count 5.04 x10^6/uL (4.30-5.70) Hemoglobin 15.5 g/dL (13.0-17.5) Hematocrit 45.1 % (39.0-53.0) Mean Corpuscular Volume 90 fL (79-100) Mean Corpuscular Hemoglobin 31 pg (25-35) Mean Corpuscular Hemoglobin Concent 34 g/dL (31-37) Red Cell Distribution Width 15.8 % (11.5-14.5) Platelet Count 238 x10^3/uL (140-400) Neutrophils (%) (Auto) 67 % (31-73) Lymphocytes (%) (Auto) 23 % (24-48) Monocytes (%) (Auto) 8 % (0-9) Eosinophils (%) (Auto) 2 % (0-3) Basophils (%) (Auto) 1 % (0-3) Neutrophils # (Auto) 7.4 x10^3uL (1.8-7.7) Lymphocytes # (Auto) 2.6 x10^3/uL (1.0-4.8) Monocytes # (Auto) 0.8 x10^3/uL (0.0-1.1) Eosinophils # (Auto) 0.2 x10^3/uL (0.0-0.7) Basophils # (Auto) 0.1 x10^3/uL (0.0-0.2) Sodium Level 138 mmol/L (136-145) Potassium Level 3.8 mmol/L (3.5-5.1) Chloride Level 103 mmol/L (98-107) Carbon Dioxide Level 23 mmol/L (21-32) Anion Gap 12 (6-14) Blood Urea Nitrogen 20 mg/dL (8-26) Creatinine 1.7 mg/dL (0.7-1.3) Estimated GFR (Cockcroft-Gault) 55.1 Glucose Level 117 mg/dL (70-99) Calcium Level 9.1 mg/dL (8.5-10.1) Magnesium Level 2.1 mg/dL (1.8-2.4) Triglycerides Level 276 mg/dL (0-150) Cholesterol Level 185 mg/dL (0-200) LDL Cholesterol, Calculated 91 mg/dL (0-100) VLDL Cholesterol, Calculated 55 mg/dL (0-40) Non-HDL Cholesterol Calculated 146 mg/dL (0-129) HDL Cholesterol 39 mg/dL (40-60) Cholesterol/HDL Ratio 4.7 Assessment and Plan Assessmemt and Plan Problems Medical Problems: (1) Drug abuse Status: Acute Problems: Comment Review of Relevant I have reviewed the following items nicolas (where applicable) has been applied. Labs Laboratory Tests Test 08/01/16 10:16 08/01/16 19:55 08/02/16 03:30 08/02/16 05:30 White Blood Count 10.5 x10^3/uL (4.0-11.0) 11.0 x10^3/uL (4.0-11.0) Red Blood Count 5.61 x10^6/uL (4.30-5.70) 5.04 x10^6/uL (4.30-5.70) Hemoglobin 17.2 g/dL (13.0-17.5) 15.5 g/dL (13.0-17.5) Hematocrit 49.8 % (39.0-53.0) 45.1 % (39.0-53.0) Mean Corpuscular Volume 89 fL (79-100) 90 fL (79-100) Mean Corpuscular Hemoglobin 31 pg (25-35) 31 pg (25-35) Mean Corpuscular Hemoglobin Concent 35 g/dL (31-37) 34 g/dL (31-37) Red Cell Distribution Width 15.5 % (11.5-14.5) 15.8 % (11.5-14.5) Platelet Count 299 x10^3/uL (140-400) 238 x10^3/uL (140-400) Neutrophils (%) (Auto) 51 % (31-73) 67 % (31-73) Lymphocytes (%) (Auto) 40 % (24-48) 23 % (24-48) Monocytes (%) (Auto) 6 % (0-9) 8 % (0-9) Eosinophils (%) (Auto) 3 % (0-3) 2 % (0-3) Basophils (%) (Auto) 1 % (0-3) 1 % (0-3) Neutrophils # (Auto) 5.4 x10^3uL (1.8-7.7) 7.4 x10^3uL (1.8-7.7) Lymphocytes # (Auto) 4.2 x10^3/uL (1.0-4.8) 2.6 x10^3/uL (1.0-4.8) Monocytes # (Auto) 0.6 x10^3/uL (0.0-1.1) 0.8 x10^3/uL (0.0-1.1) Eosinophils # (Auto) 0.3 x10^3/uL (0.0-0.7) 0.2 x10^3/uL (0.0-0.7) Basophils # (Auto) 0.1 x10^3/uL (0.0-0.2) 0.1 x10^3/uL (0.0-0.2) Prothrombin Time 12.1 SEC (11.7-14.0) Prothromb Time International Ratio 1.0 (0.8-1.1) Activated Partial Thromboplast Time 25 SEC (24-38) Sodium Level 138 mmol/L (136-145) 138 mmol/L (136-145) Potassium Level 3.2 mmol/L (3.5-5.1) 3.8 mmol/L (3.5-5.1) Chloride Level 100 mmol/L (98-107) 103 mmol/L (98-107) Carbon Dioxide Level 20 mmol/L (21-32) 23 mmol/L (21-32) Anion Gap 18 (6-14) 12 (6-14) Blood Urea Nitrogen 20 mg/dL (8-26) 20 mg/dL (8-26) Creatinine 2.6 mg/dL (0.7-1.3) 1.7 mg/dL (0.7-1.3) Estimated GFR (Cockcroft-Gault) 27.9 55.1 BUN/Creatinine Ratio 8 (6-20) Glucose Level 159 mg/dL (70-99) 117 mg/dL (70-99) Calcium Level 10.1 mg/dL (8.5-10.1) 9.1 mg/dL (8.5-10.1) Magnesium Level 2.0 mg/dL (1.8-2.4) 2.1 mg/dL (1.8-2.4) Total Bilirubin 0.6 mg/dL (0.2-1.0) Aspartate Amino Transf (AST/SGOT) 28 U/L (15-37) Alanine Aminotransferase (ALT/SGPT) 58 U/L (16-63) Alkaline Phosphatase 126 U/L (46-116) Creatine Kinase 426 U/L (39-308) Troponin I Quantitative < 0.017 ng/mL (0.000-0.055) 532.010 ng/mL (0.000-0.055) 173.370 ng/mL (0.000-0.055) HH-Gpc-O-Type Natriuretic Peptide 1313 pg/mL (0-124) Total Protein 8.6 g/dL (6.4-8.2) Albumin 4.0 g/dL (3.4-5.0) Albumin/Globulin Ratio 0.9 (1.0-1.7) Lipase 580 U/L (73-393) Ethyl Alcohol Level < 10 mg/dL (0-10) Urine Opiates Screen Neg (NEG) Urine Methadone Screen Neg (NEG) Urine Barbiturates Neg (NEG) Urine Phencyclidine Screen Neg (NEG) Urine Amphetamine/Methamphetamine Pos (NEG) Urine Benzodiazepines Screen Pos (NEG) Urine Cocaine Screen Neg (NEG) Urine Cannabinoids Screen Neg (NEG) Urine Ethyl Alcohol Neg (NEG) Triglycerides Level 276 mg/dL (0-150) Cholesterol Level 185 mg/dL (0-200) LDL Cholesterol, Calculated 91 mg/dL (0-100) VLDL Cholesterol, Calculated 55 mg/dL (0-40) Non-HDL Cholesterol Calculated 146 mg/dL (0-129) HDL Cholesterol 39 mg/dL (40-60) Cholesterol/HDL Ratio 4.7 Laboratory Tests Test 08/01/16 19:55 08/02/16 03:30 08/02/16 05:30 Troponin I Quantitative 532.010 ng/mL (0.000-0.055) 173.370 ng/mL (0.000-0.055) Urine Opiates Screen Neg (NEG) Urine Methadone Screen Neg (NEG) Urine Barbiturates Neg (NEG) Urine Phencyclidine Screen Neg (NEG) Urine Amphetamine/Methamphetamine Pos (NEG) Urine Benzodiazepines Screen Pos (NEG) Urine Cocaine Screen Neg (NEG) Urine Cannabinoids Screen Neg (NEG) Urine Ethyl Alcohol Neg (NEG) White Blood Count 11.0 x10^3/uL (4.0-11.0) Red Blood Count 5.04 x10^6/uL (4.30-5.70) Hemoglobin 15.5 g/dL (13.0-17.5) Hematocrit 45.1 % (39.0-53.0) Mean Corpuscular Volume 90 fL (79-100) Mean Corpuscular Hemoglobin 31 pg (25-35) Mean Corpuscular Hemoglobin Concent 34 g/dL (31-37) Red Cell Distribution Width 15.8 % (11.5-14.5) Platelet Count 238 x10^3/uL (140-400) Neutrophils (%) (Auto) 67 % (31-73) Lymphocytes (%) (Auto) 23 % (24-48) Monocytes (%) (Auto) 8 % (0-9) Eosinophils (%) (Auto) 2 % (0-3) Basophils (%) (Auto) 1 % (0-3) Neutrophils # (Auto) 7.4 x10^3uL (1.8-7.7) Lymphocytes # (Auto) 2.6 x10^3/uL (1.0-4.8) Monocytes # (Auto) 0.8 x10^3/uL (0.0-1.1) Eosinophils # (Auto) 0.2 x10^3/uL (0.0-0.7) Basophils # (Auto) 0.1 x10^3/uL (0.0-0.2) Sodium Level 138 mmol/L (136-145) Potassium Level 3.8 mmol/L (3.5-5.1) Chloride Level 103 mmol/L (98-107) Carbon Dioxide Level 23 mmol/L (21-32) Anion Gap 12 (6-14) Blood Urea Nitrogen 20 mg/dL (8-26) Creatinine 1.7 mg/dL (0.7-1.3) Estimated GFR (Cockcroft-Gault) 55.1 Glucose Level 117 mg/dL (70-99) Calcium Level 9.1 mg/dL (8.5-10.1) Magnesium Level 2.1 mg/dL (1.8-2.4) Triglycerides Level 276 mg/dL (0-150) Cholesterol Level 185 mg/dL (0-200) LDL Cholesterol, Calculated 91 mg/dL (0-100) VLDL Cholesterol, Calculated 55 mg/dL (0-40) Non-HDL Cholesterol Calculated 146 mg/dL (0-129) HDL Cholesterol 39 mg/dL (40-60) Cholesterol/HDL Ratio 4.7 Medications Current Medications Fentanyl Citrate (Fentanyl 2ml Vial) 75 mcg 1X ONCE IV Last administered on 10:22; Start 08/01/16 at 10:30; Stop 08/01/16 at 10:31; Status DC Heparin Sodium (Porcine) (Heparin Sodium) 4,000 unit 1X ONCE IV Last administered on 08/01/16 10:29; Start 08/01/16 at 10:30; Stop 08/01/16 at 10:31 ; Status DC Iohexol (Omnipaque 300 Mg/ml) 100 ml STK-MED ONCE .ROUTE ; Start 08/01/16 at 10: 43; Stop 08/01/16 at 10:44; Status DC Heparin Sodium/ Sodium Chloride 1,500 ml @ As Directed STK-MED ONCE .ROUTE ; Start 08/01/16 at 10:43; Stop 08/01/16 at 10:44; Status DC Lidocaine HCl 20 ml STK-MED ONCE .ROUTE ; Start 08/01/16 at 10:43; Stop at 10:44; Status DC Midazolam HCl (Versed) 2 mg STK-MED ONCE .ROUTE ; Start 08/01/16 at 10:43; Stop 08/01/16 at 10:44; Status DC Midazolam HCl (Versed) 2 mg STK-MED ONCE .ROUTE ; Start 08/01/16 at 10:44; Stop 08/01/16 at 10:45; Status DC Fentanyl Citrate (Fentanyl 2ml Vial) 100 mcg STK-MED ONCE .ROUTE ; Start at 10:44; Stop 08/01/16 at 10:45; Status DC Iodixanol (Visipaque 320) 100 ml STK-MED ONCE .ROUTE ; Start 08/01/16 at 10:45; Stop 08/01/16 at 10:46; Status DC Heparin Sodium/ Sodium Chloride 1,000 unit 1X ONCE IART Last administered on 12:10; Start 08/01/16 at 11:15; Stop 08/01/16 at 11:16; Status DC Midazolam HCl (Versed) 2 mg 1X ONCE IV Last administered on 08/01/16 12:09; Start 08/01/16 at 11:15; Stop 08/01/16 at 11:16; Status DC Fentanyl Citrate (Fentanyl 2ml Vial) 100 mcg 1X ONCE IV Last administered on 12:09; Start 08/01/16 at 11:15; Stop 08/01/16 at 11:16; Status DC Iodixanol (Visipaque 320) 100 ml 1X ONCE IART Last administered on 08/01/16 12:06; Start 08/01/16 at 11:15; Stop 08/01/16 at 11:16; Status DC Lidocaine HCl 20 ml 1X ONCE IJ Last administered on 08/01/16 12:06; Start 01/07 at 11:15; Stop 08/01/16 at 11:16; Status DC Heparin Sodium (Porcine) (Heparin Sodium) 10,000 unit STK-MED ONCE .ROUTE ; Start 08/01/16 at 11:16; Stop 08/01/16 at 11:17; Status DC Tirofiban/Sodium Chloride 250 ml @ As Directed STK-MED ONCE IV ; Start at 11:16; Stop 08/01/16 at 11:17; Status DC Heparin Sodium (Porcine) (Heparin Sodium) 4,000 unit 1X ONCE IV Last administered on 08/01/16 12:07; Start 08/01/16 at 11:30; Stop 08/01/16 at 11:31 ; Status DC Tirofiban/Sodium Chloride 250 ml @ 0 mls/hr CONT PRN IV PER PROTOCOL Last administered on 08/01/16 11:20; Start 08/01/16 at 11:30; Stop 08/02/16 at 05:29 ; Status DC Ondansetron HCl (Zofran) 4 mg PRN Q8HRS PRN IV NAUSEA/VOMITING; Start 08/01/16 at 11:30; Stop 08/02/16 at 11:29; Status DC Fentanyl Citrate (Fentanyl 2ml Vial) 50 mcg PRN Q2HR PRN IV PAIN Last administered on 08/02/16 08:39; Start 08/01/16 at 11:30; Stop 08/02/16 at 11:29 ; Status DC Iodixanol (Visipaque 320) 100 ml STK-MED ONCE .ROUTE ; Start 08/01/16 at 11:28; Stop 08/01/16 at 11:29; Status DC Atropine Sulfate 0.5 mg STK-MED ONCE .ROUTE ; Start 08/01/16 at 11:29; Stop 01/07 at 11:30; Status DC Dopamine HCl/ Dextrose 250 ml @ As Directed STK-MED ONCE IV ; Start 08/01/16 at 11:31; Stop 08/01/16 at 11:32; Status DC Ticagrelor (Brilinta) 90 mg STK-MED ONCE .ROUTE ; Start 08/01/16 at 11:42; Stop 08/01/16 at 11:43; Status DC Ticagrelor (Brilinta) 180 mg 1X ONCE PO Last administered on 08/01/16 12:07; Start 08/01/16 at 11:45; Stop 08/01/16 at 11:48; Status DC Dopamine HCl/ Dextrose 250 ml @ 14.884 mls/ hr 1X ONCE IV Last administered on 08/01/16 11:38; Start 08/01/16 at 12:00; Stop 08/02/16 at 04:47; Status DC Aspirin (Georgina Aspirin) 325 mg STK-MED ONCE .ROUTE ; Start 08/01/16 at 11:48; Stop 08/01/16 at 11:49; Status DC Sodium Chloride 1,000 ml @ 125 mls/hr 1X ONCE IV Last administered on 11:00; Start 08/01/16 at 12:00; Stop 08/01/16 at 19:59; Status DC Sodium Chloride (Normal Saline Flush) 3 ml QSHIFT PRN IV AFTER MEDS AND BLOOD DRAWS; Start 08/01/16 at 12:30 Sodium Chloride 1,000 ml @ 75 mls/hr [id number] IV Last administered on 10:57; Start 08/01/16 at 12:18; Stop 08/02/16 at 12:18; Status DC Tirofiban/Sodium Chloride 250 ml @ 0 mls/hr CONT PRN IV PER PROTOCOL; Start 01/07 at 12:30; Stop 08/02/16 at 06:29; Status DC Aspirin (Ecotrin) 81 mg [id number] PO Last administered on 08/02/16 08:30; Start 08/02/16 at 08:00 Ticagrelor (Brilinta) 90 mg BID PO Last administered on 08/02/16 08:31; Start 08/02/16 at 09:00 Metoprolol Tartrate (Lopressor) 12.5 mg BID PO Last administered on 08/02/16 08:31; Start 08/01/16 at 21:00; Stop 08/02/16 at 12:25; Status DC Lisinopril (Prinivil) 5 mg DAILY PO Last administered on 08/02/16 08:30; Start 08/01/16 at 13:30 Atorvastatin Calcium (Lipitor) 20 mg QHS PO Last administered on 08/01/16 20: 45; Start 08/01/16 at 21:00 Acetaminophen (Tylenol) 650 mg PRN Q6HRS PRN PO MILD PAIN / TEMP; Start at 12:30; Stop 08/02/16 at 12:18; Status DC Fentanyl Citrate (Fentanyl 2ml Vial) 50 mcg PRN Q1HR PRN IV MODERATE OR SEVERE PAIN; Start 08/01/16 at 12:30; Stop 08/01/16 at 22:12; Status DC Nitroglycerin (Nitrostat) 0.4 mg PRN Q5MIN PRN SL CHEST PAIN; Start 08/01/16 at 12:30 Amiodarone HCl 150 mg/Dextrose 103 ml @ 10 mls/min 1X PRN PRN IV FOR VENTRICULAR TACHYCARDIA; Start 08/01/16 at 12:30 Lidocaine HCl (Lidocaine HCl 2% Abboject) 100 mg 1X PRN PRN IV FOR VENTRICULAR TACHYCARDIA; Start 08/01/16 at 12:30 Atropine Sulfate 0.5 mg PRN 1X PRN IV BRADYCARDIA; Start 08/01/16 at 12:30 Potassium Chloride (Klor-Con) 20 meq 1X ONCE PO Last administered on 14:56; Start 08/01/16 at 12:45; Stop 08/01/16 at 12:46; Status DC Nicotine (Nicoderm Cq 14mg) 1 patch DAILY TD ; Start 08/02/16 at 09:00; Status Cancel Lorazepam (Ativan) 0.5 mg 1X ONCE PO Last administered on 08/01/16 18:43; Start 08/01/16 at 18:15; Stop 08/01/16 at 18:19; Status DC Lorazepam (Ativan) 0.5 mg PRN Q8HRS PRN PO ANXIETY / AGITATION Last administered on 08/01/16 20:44; Start 08/01/16 at 19:45 Efavirenz/ Emtricitabine/ Tenofovir (Atripla) 1 tab DAILY PO Last administered on 08/02/16 08:30; Start 08/02/16 at 09:00 Paroxetine HCl (Paxil) 40 mg DAILY PO Last administered on 08/02/16 08:29; Start 08/02/16 at 09:00 Lisinopril (Prinivil) 2.5 mg 1X ONCE PO Last administered on 08/01/16 22:30; Start 08/01/16 at 22:30; Stop 08/01/16 at 22:31; Status DC Nitroglycerin (Nitrostat) 0.4 mg 1X ONCE SL ; Start 08/02/16 at 02:45; Stop 02/06 at 02:46; Status DC Acetaminophen (Tylenol) 1,000 mg PRN Q4HRS PRN PO MILD PAIN / TEMP; Start 08/02 at 12:30 Nicotine (Nicoderm Cq 14mg) 1 patch DAILY TD Last administered on 08/02/16 12: 25; Start 08/02/16 at 12:15 Metoprolol Tartrate (Lopressor) 25 mg BID PO ; Start 08/02/16 at 21:00 Active Scripts Active Reported Paxil (Paroxetine Hcl) 40 Mg Tablet 40 Mg PO DAILY Atenolol-Chlorthalidone 100-25 (Atenolol/Chlorthalidone) 1 Each Tablet 1 Tab PO DAILY Atripla Tablet (Efavirenz/Emtricitab/Tenofovir) 1 Each Tablet 1 Each PO DAILY Vitals/I & O Vital Sign - Last 24 Hours 08/01/16 08/01/16 08/01/16 08/01/16 14:00 14:30 14:57 15:00 Pulse 66 70 70 68 Resp 20 17 20 B/P (MAP) 113/70 (84) 114/75 (88) 114/75 117/81 (93) Pulse Ox 100 95 93 O2 Delivery Room Air Room Air Room Air 08/01/16 08/01/16 08/01/16 08/01/16 16:00 16:00 17:00 18:00 Temp 98.7 98.7 Pulse 76 78 82 Resp 21 22 21 B/P (MAP) 127/93 (104) 140/87 (104) 155/109 (124) Pulse Ox 98 97 95 O2 Delivery Room Air Room Air Room Air Room Air 08/01/16 08/01/16 08/01/16 08/01/16 19:00 19:15 20:00 20:32 Temp 98.9 98.9 Pulse 78 72 72 Resp 20 14 21 18 B/P (MAP) 147/104 (118) 147/108 (121) Pulse Ox 97 98 99 O2 Delivery Room Air Room Air Room Air Room Air 08/01/16 08/01/16 08/01/16 08/01/16 20:32 20:45 21:00 22:00 Pulse 69 72 69 Resp 18 18 B/P (MAP) 147/108 164/118 (133) Pulse Ox 99 99 O2 Delivery Room Air Room Air Room Air 08/01/16 08/01/16 08/01/16 08/01/16 22:00 22:30 23:00 23:59 Pulse 81 66 Resp 18 B/P (MAP) 142/108 (119) 142/102 150/102 (118) Pulse Ox 98 O2 Delivery Room Air Room Air 08/02/16 08/02/16 08/02/16 08/02/16 00:00 01:00 02:00 03:00 Temp 98.0 98.0 Pulse 72 79 78 82 Resp 18 22 22 20 B/P (MAP) 124/82 (96) 121/79 (93) 136/92 (107) 127/79 (95) Pulse Ox 99 99 99 98 O2 Delivery Room Air Room Air Room Air 08/02/16 08/02/16 08/02/16 08/02/16 04:00 04:00 05:00 06:00 Temp 98.2 98.2 Pulse 72 81 82 Resp 21 20 19 B/P (MAP) 128/77 (94) 122/81 (95) 140/97 (111) Pulse Ox 99 99 99 O2 Delivery Room Air Room Air Room Air Room Air 08/02/16 08/02/16 08/02/16 08/02/16 07:00 07:51 08:00 08:00 Temp 97.6 97.6 Pulse 84 84 102 Resp 16 16 31 B/P (MAP) 135/86 (102) 135/86 (102) 127/80 (96) Pulse Ox 96 96 97 O2 Delivery Room Air Room Air Room Air Room Air 08/02/16 08/02/16 08/02/16 08/02/16 08:30 08:31 08:39 09:00 Pulse 103 103 82 Resp 21 20 B/P (MAP) 135/86 135/86 151/63 (92) Pulse Ox 94 O2 Delivery Room Air Room Air 08/02/16 08/02/16 08/02/1608/02/17 09:09 10:00 10:58 12:00 Pulse 93 73 Resp 20 28 26 B/P (MAP) 123/80 (94) 137/92 (107) Pulse Ox 98 95 O2 Delivery Room Air Room Air Room Air Room Air O2 Flow Rate 2.0 08/02/16 08/02/16 12:00 13:00 Temp 98.0 98.0 Pulse 80 78 Resp 20 22 B/P (MAP) 142/95 (111) 117/73 (88) Pulse Ox 95 95 O2 Delivery Room Air Intake and Output 08/01/16 08/01/16 08/02/16 15:00 23:00 07:00 Intake Total 650 ml 887.5 ml 979.4 ml Output Total 650 ml 550 ml Balance 650 ml 237.5 ml 429.4 ml MICHAEL BASS MD Aug 02, 2016 13:56
--- NOTE | 2016-08-02 16:31 | CARD ---
APPROVED REPORT Procedures Selective coronary angiogram. Drug-coated stent placement to an occluded mid LAD vessel. The patient is a 36-year-old male who had a syncopal episode and then developed chest pain. He was br ought to the emergency room and in the emergency room his EKG was suggestive of an anterior wall ST e levated myocardial infarction. Aspirin and heparin were administered but the patient continued to hav e significant chest pain. Emergency heart catheterization and possible revascularization was recomme nded to the patient. Risks and benefits were discussed. The patient gave consent to proceed. After informed consent was obtained the patient was brought to the heart catheterization lab. The are a of the right femoral artery was prepared in the usual manner with Betadine, sterile draping and loc al anesthetic. An 18-gauge needle was used jeannie enter the right femoral artery, a wire placed and a 6 Canadian sheath placed over the wire. A diagnostic 6 [place] right catheter was used to engage the right coronary artery and sequential injections in various views were obtained. A 6 Canadian Extra Support 3.5 guide was then used to engage the left coronary system and sequential injections in vario us was obtained. Injections showed occlusion of the mid LAD which was a large vessel. We proceeded to revascularize the vessel. Heparin and Angiomax as per protocol were administered. A PT choice wire was used to cross the lesion and initial dilatation was with a 2.5 x 15 Trek balloon with 2 inflations at 8 joao for 15 seconds. T he mid LAD was then stented with a 3.5 x 28 bare metal Multi link vision stent with one inflation at 16 joao for 16 seconds. Residual lesion was 0%. The guiding system was removed from the patient. Injec tion of the sheath showed normal placement. The sheath was removed and sealed with an Angio-Seal prod uct. The patient was moved to the intensive care unit. Findings. Hemodynamics. Aortic pressure 110/60. Coronaries. Left main. The left was a short vessel with no lesions. Left anterior descending. The LAD was a large vessel with a mid total occlusion. Left circumflex. The left circumflex was a moderate size vessel with distal small vessel disease. Right coronary artery. Right coronary was a moderate-sized vessel with a proximal 25% lesion. <Conclusion> ST elevated myocardial infarction secondary to an occluded mid left anterior descending vessel. Successful stenting of the LAD occlusion with a 3.5 x 28 bare metal stent with residual lesion of 0%. Mild disease in the right coronary artery and left circumflex vessels.
[2016-08-02] MEDS: ATORVASTATIN CALCIUM 20 MG TABLET PO SCH (21:33)
[2016-08-02] MEDS: LORazepam 0.5 MG TABLET PO PRN (22:59)
[2016-08-03] VITALS (14 sets, daily range): BP systolic 109–145; BP diastolic 67–102
[2016-08-03] MEDS: EFAVIRENZ PO SCH (08:33)
[2016-08-03] MEDS: TENOFOVIR PO SCH (08:33)
[2016-08-03] MEDS: EMTRICITAB PO SCH (08:33)
[2016-08-03] MEDS: TICAGRELOR 90 MG TABLET. PO SCH ×2 (08:33→20:55)
[2016-08-03] MEDS: PARoxetine 20 MG TABLET PO SCH (08:33)
[2016-08-03] MEDS: ASPIRIN ENTERIC COATED 81 MG TABLET.DR. PO SCH (08:33)
[2016-08-03] MEDS: LISINOPRIL 5 MG TABLET. PO SCH (08:34)
[2016-08-03] MEDS: METOPROLOL TART IMMED RELEASE 25 MG TABLET. PO SCH ×2 (08:34→20:54)
[2016-08-03] MEDS: NICOTINE 14MG PATCH. TD SCH (08:35)
--- NOTE | 2016-08-03 09:18 | EKG ---
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
--- NOTE | 2016-08-03 10:04 | PDOC ---
CARDIO Progress Notes Date and Time Date of Service 08/03/2016 Time of Evaluation 1003 Subjective Subjective: No Chest Pain, No shortness of breath, No Palpitations, No Dizziness, Other (drowsy, lethargic - got ativan @ 2200 yesterday) Vitals Vitals Vital Signs Date Time Temp Pulse Resp B/P (MAP) Pulse Ox O2 Delivery O2 Flow Rate FiO2 08/03/16 08:53 89 22 128/79 (95) 98 Room Air 08/03/16 07:00 98.3 98.3 08/02/16 16:00 2.0 Weight Weight [ ] Input and Output Intake and Output Intake and Output 08/03/16 07:00 Intake Total 3455 ml Output Total 1375 ml Balance 2080 ml Intake Oral 2935 ml IV Total 520 ml Output Urine Total 1375 ml Physical Exam HEENT: Neck Supple W Full Motion Chest: Symmetric LUNGS: Clear to Auscultation Heart: S1S2, RRR, no murmurs, other (tele: SR) Abdomen: Soft N/T Extremities: 2+ Dorsalis Pedis, 2+ Posterior Tibial, Other (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 STEMI troponin peaked > 500 BMS to mid LAD; DAPT for at least the next 30 days, then ASA indefinitely LVEF 35-40% with LV hypokinesis - no indication for LifeVest as EF > 35% BB, ACEI and statin therapy 2. mixed hyperlipidemia statin therapy 3. HTN improved control increase ACEI today 4. polysubstance abuse tobacco - nicoderm patch meth may discharge advised to avoid meth, cocaine, THC - advised of possible associated with use f/u 4 weeks with cardiology LORRAINE HENNING APRN Aug 03, 2016 10:04
[2016-08-03 10:35] LABS: CALCIUM 8.9 mg/dL (8.5-10.1); CREATININE 1.5 mg/dL (0.7-1.3); GFR 63.7; POTASSIUM 3.5 mmol/L (3.5-5.1)
--- NOTE | 2016-08-03 13:26 | EKG ---
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
--- NOTE | 2016-08-03 17:15 | PDOC ---
PROGRESS NOTES Chief Complaint Chief Complaint cc: chest pain A/P 1. STEMI S/P BMS to mid LAD; DAPT , echo pending. Monitor for any athymias, no acute events overnight. 2. mixed hyperlipidemia: statin Therapy 3. HTN: not controlled. 4. polysubstance abuse: nicotine patch 5. Pain chest pain : IV fentanyl prn,limit narcotics. 6. GARRET: due to VMN, IV HYDRATION , better. Vitals Vitals Vital Signs Date Time Temp Pulse Resp B/P (MAP) Pulse Ox O2 Delivery O2 Flow Rate FiO2 08/03/16 15:00 98.0 88 22 135/87 (103) 98 Room Air 98.0 08/02/16 16:00 2.0 Physical Exam General: Alert, Oriented X3, Cooperative, moderate distress Heart: Normal S1, Normal S2, Other Lungs: Clear Abdomen: Normal bowel sounds Extremities: No clubbing, No cyanosis Labs LABS Laboratory Tests Test 08/03/16 10:00 Sodium Level 138 mmol/L (136-145) Potassium Level 3.5 mmol/L (3.5-5.1) Chloride Level 101 mmol/L (98-107) Carbon Dioxide Level 26 mmol/L (21-32) Anion Gap 11 (6-14) Blood Urea Nitrogen 17 mg/dL (8-26) Creatinine 1.5 mg/dL (0.7-1.3) Estimated GFR (Cockcroft-Gault) 63.7 Glucose Level 161 mg/dL (70-99) Calcium Level 8.9 mg/dL (8.5-10.1) Assessment and Plan Assessmemt and Plan Problems Medical Problems: (1) Drug abuse Status: Acute Problems: Comment Review of Relevant I have reviewed the following items nicolas (where applicable) has been applied. Labs Laboratory Tests Test 08/01/16 19:55 08/02/16 03:30 08/02/16 05:30 08/03/16 10:00 Troponin I Quantitative 532.010 ng/mL (0.000-0.055) 173.370 ng/mL (0.000-0.055) Urine Opiates Screen Neg (NEG) Urine Methadone Screen Neg (NEG) Urine Barbiturates Neg (NEG) Urine Phencyclidine Screen Neg (NEG) Urine Amphetamine/Methamphetamine Pos (NEG) Urine Benzodiazepines Screen Pos (NEG) Urine Cocaine Screen Neg (NEG) Urine Cannabinoids Screen Neg (NEG) Urine Ethyl Alcohol Neg (NEG) White Blood Count 11.0 x10^3/uL (4.0-11.0) Red Blood Count 5.04 x10^6/uL (4.30-5.70) Hemoglobin 15.5 g/dL (13.0-17.5) Hematocrit 45.1 % (39.0-53.0) Mean Corpuscular Volume 90 fL (79-100) Mean Corpuscular Hemoglobin 31 pg (25-35) Mean Corpuscular Hemoglobin Concent 34 g/dL (31-37) Red Cell Distribution Width 15.8 % (11.5-14.5) Platelet Count 238 x10^3/uL (140-400) Neutrophils (%) (Auto) 67 % (31-73) Lymphocytes (%) (Auto) 23 % (24-48) Monocytes (%) (Auto) 8 % (0-9) Eosinophils (%) (Auto) 2 % (0-3) Basophils (%) (Auto) 1 % (0-3) Neutrophils # (Auto) 7.4 x10^3uL (1.8-7.7) Lymphocytes # (Auto) 2.6 x10^3/uL (1.0-4.8) Monocytes # (Auto) 0.8 x10^3/uL (0.0-1.1) Eosinophils # (Auto) 0.2 x10^3/uL (0.0-0.7) Basophils # (Auto) 0.1 x10^3/uL (0.0-0.2) Sodium Level 138 mmol/L (136-145) 138 mmol/L (136-145) Potassium Level 3.8 mmol/L (3.5-5.1) 3.5 mmol/L (3.5-5.1) Chloride Level 103 mmol/L (98-107) 101 mmol/L (98-107) Carbon Dioxide Level 23 mmol/L (21-32) 26 mmol/L (21-32) Anion Gap 12 (6-14) 11 (6-14) Blood Urea Nitrogen 20 mg/dL (8-26) 17 mg/dL (8-26) Creatinine 1.7 mg/dL (0.7-1.3) 1.5 mg/dL (0.7-1.3) Estimated GFR (Cockcroft-Gault) 55.1 63.7 Glucose Level 117 mg/dL (70-99) 161 mg/dL (70-99) Calcium Level 9.1 mg/dL (8.5-10.1) 8.9 mg/dL (8.5-10.1) Magnesium Level 2.1 mg/dL (1.8-2.4) Triglycerides Level 276 mg/dL (0-150) Cholesterol Level 185 mg/dL (0-200) LDL Cholesterol, Calculated 91 mg/dL (0-100) VLDL Cholesterol, Calculated 55 mg/dL (0-40) Non-HDL Cholesterol Calculated 146 mg/dL (0-129) HDL Cholesterol 39 mg/dL (40-60) Cholesterol/HDL Ratio 4.7 Laboratory Tests Test 08/03/16 10:00 Sodium Level 138 mmol/L (136-145) Potassium Level 3.5 mmol/L (3.5-5.1) Chloride Level 101 mmol/L (98-107) Carbon Dioxide Level 26 mmol/L (21-32) Anion Gap 11 (6-14) Blood Urea Nitrogen 17 mg/dL (8-26) Creatinine 1.5 mg/dL (0.7-1.3) Estimated GFR (Cockcroft-Gault) 63.7 Glucose Level 161 mg/dL (70-99) Calcium Level 8.9 mg/dL (8.5-10.1) Medications Current Medications Fentanyl Citrate (Fentanyl 2ml Vial) 75 mcg 1X ONCE IV Last administered on 10:22; Start 08/01/16 at 10:30; Stop 08/01/16 at 10:31; Status DC Heparin Sodium (Porcine) (Heparin Sodium) 4,000 unit 1X ONCE IV Last administered on 08/01/16 10:29; Start 08/01/16 at 10:30; Stop 08/01/16 at 10:31 ; Status DC Iohexol (Omnipaque 300 Mg/ml) 100 ml STK-MED ONCE .ROUTE ; Start 08/01/16 at 10: 43; Stop 08/01/16 at 10:44; Status DC Heparin Sodium/ Sodium Chloride 1,500 ml @ As Directed STK-MED ONCE .ROUTE ; Start 08/01/16 at 10:43; Stop 08/01/16 at 10:44; Status DC Lidocaine HCl 20 ml STK-MED ONCE .ROUTE ; Start 08/01/16 at 10:43; Stop at 10:44; Status DC Midazolam HCl (Versed) 2 mg STK-MED ONCE .ROUTE ; Start 08/01/16 at 10:43; Stop 08/01/16 at 10:44; Status DC Midazolam HCl (Versed) 2 mg STK-MED ONCE .ROUTE ; Start 08/01/16 at 10:44; Stop 08/01/16 at 10:45; Status DC Fentanyl Citrate (Fentanyl 2ml Vial) 100 mcg STK-MED ONCE .ROUTE ; Start at 10:44; Stop 08/01/16 at 10:45; Status DC Iodixanol (Visipaque 320) 100 ml STK-MED ONCE .ROUTE ; Start 08/01/16 at 10:45; Stop 08/01/16 at 10:46; Status DC Heparin Sodium/ Sodium Chloride 1,000 unit 1X ONCE IART Last administered on 12:10; Start 08/01/16 at 11:15; Stop 08/01/16 at 11:16; Status DC Midazolam HCl (Versed) 2 mg 1X ONCE IV Last administered on 08/01/16 12:09; Start 08/01/16 at 11:15; Stop 08/01/16 at 11:16; Status DC Fentanyl Citrate (Fentanyl 2ml Vial) 100 mcg 1X ONCE IV Last administered on 12:09; Start 08/01/16 at 11:15; Stop 08/01/16 at 11:16; Status DC Iodixanol (Visipaque 320) 100 ml 1X ONCE IART Last administered on 08/01/16 12:06; Start 08/01/16 at 11:15; Stop 08/01/16 at 11:16; Status DC Lidocaine HCl 20 ml 1X ONCE IJ Last administered on 08/01/16 12:06; Start 01/07 at 11:15; Stop 08/01/16 at 11:16; Status DC Heparin Sodium (Porcine) (Heparin Sodium) 10,000 unit STK-MED ONCE .ROUTE ; Start 08/01/16 at 11:16; Stop 08/01/16 at 11:17; Status DC Tirofiban/Sodium Chloride 250 ml @ As Directed STK-MED ONCE IV ; Start at 11:16; Stop 08/01/16 at 11:17; Status DC Heparin Sodium (Porcine) (Heparin Sodium) 4,000 unit 1X ONCE IV Last administered on 08/01/16 12:07; Start 08/01/16 at 11:30; Stop 08/01/16 at 11:31 ; Status DC Tirofiban/Sodium Chloride 250 ml @ 0 mls/hr CONT PRN IV PER PROTOCOL Last administered on 08/01/16 11:20; Start 08/01/16 at 11:30; Stop 08/02/16 at 05:29 ; Status DC Ondansetron HCl (Zofran) 4 mg PRN Q8HRS PRN IV NAUSEA/VOMITING; Start 08/01/16 at 11:30; Stop 08/02/16 at 11:29; Status DC Fentanyl Citrate (Fentanyl 2ml Vial) 50 mcg PRN Q2HR PRN IV PAIN Last administered on 08/02/16 08:39; Start 08/01/16 at 11:30; Stop 08/02/16 at 11:29 ; Status DC Iodixanol (Visipaque 320) 100 ml STK-MED ONCE .ROUTE ; Start 08/01/16 at 11:28; Stop 08/01/16 at 11:29; Status DC Atropine Sulfate 0.5 mg STK-MED ONCE .ROUTE ; Start 08/01/16 at 11:29; Stop 01/07 at 11:30; Status DC Dopamine HCl/ Dextrose 250 ml @ As Directed STK-MED ONCE IV ; Start 08/01/16 at 11:31; Stop 08/01/16 at 11:32; Status DC Ticagrelor (Brilinta) 90 mg STK-MED ONCE .ROUTE ; Start 08/01/16 at 11:42; Stop 08/01/16 at 11:43; Status DC Ticagrelor (Brilinta) 180 mg 1X ONCE PO Last administered on 08/01/16 12:07; Start 08/01/16 at 11:45; Stop 08/01/16 at 11:48; Status DC Dopamine HCl/ Dextrose 250 ml @ 14.884 mls/ hr 1X ONCE IV Last administered on 08/01/16 11:38; Start 08/01/16 at 12:00; Stop 08/02/16 at 04:47; Status DC Aspirin (Georgina Aspirin) 325 mg STK-MED ONCE .ROUTE ; Start 08/01/16 at 11:48; Stop 08/01/16 at 11:49; Status DC Sodium Chloride 1,000 ml @ 125 mls/hr 1X ONCE IV Last administered on 11:00; Start 08/01/16 at 12:00; Stop 08/01/16 at 19:59; Status DC Sodium Chloride (Normal Saline Flush) 3 ml QSHIFT PRN IV AFTER MEDS AND BLOOD DRAWS; Start 08/01/16 at 12:30 Sodium Chloride 1,000 ml @ 75 mls/hr [id number] IV Last administered on 10:57; Start 08/01/16 at 12:18; Stop 08/02/16 at 12:18; Status DC Tirofiban/Sodium Chloride 250 ml @ 0 mls/hr CONT PRN IV PER PROTOCOL; Start 01/07 at 12:30; Stop 08/02/16 at 06:29; Status DC Aspirin (Ecotrin) 81 mg [id number] PO Last administered on 08/03/16 08:33; Start 08/02/16 at 08:00 Ticagrelor (Brilinta) 90 mg BID PO Last administered on 08/03/16 08:33; Start 08/02/16 at 09:00 Metoprolol Tartrate (Lopressor) 12.5 mg BID PO Last administered on 08/02/16 08:31; Start 08/01/16 at 21:00; Stop 08/02/16 at 12:25; Status DC Lisinopril (Prinivil) 5 mg DAILY PO Last administered on 08/03/16 08:34; Start 08/01/16 at 13:30; Stop 08/03/16 at 10:09; Status DC Atorvastatin Calcium (Lipitor) 20 mg QHS PO Last administered on 08/02/16 21: 33; Start 08/01/16 at 21:00 Acetaminophen (Tylenol) 650 mg PRN Q6HRS PRN PO MILD PAIN / TEMP; Start at 12:30; Stop 08/02/16 at 12:18; Status DC Fentanyl Citrate (Fentanyl 2ml Vial) 50 mcg PRN Q1HR PRN IV MODERATE OR SEVERE PAIN; Start 08/01/16 at 12:30; Stop 08/01/16 at 22:12; Status DC Nitroglycerin (Nitrostat) 0.4 mg PRN Q5MIN PRN SL CHEST PAIN; Start 08/01/16 at 12:30 Amiodarone HCl 150 mg/Dextrose 103 ml @ 10 mls/min 1X PRN PRN IV FOR VENTRICULAR TACHYCARDIA; Start 08/01/16 at 12:30 Lidocaine HCl (Lidocaine HCl 2% Abboject) 100 mg 1X PRN PRN IV FOR VENTRICULAR TACHYCARDIA; Start 08/01/16 at 12:30 Atropine Sulfate 0.5 mg PRN 1X PRN IV BRADYCARDIA; Start 08/01/16 at 12:30 Potassium Chloride (Klor-Con) 20 meq 1X ONCE PO Last administered on 14:56; Start 08/01/16 at 12:45; Stop 08/01/16 at 12:46; Status DC Nicotine (Nicoderm Cq 14mg) 1 patch DAILY TD ; Start 08/02/16 at 09:00; Status Cancel Lorazepam (Ativan) 0.5 mg 1X ONCE PO Last administered on 08/01/16 18:43; Start 08/01/16 at 18:15; Stop 08/01/16 at 18:19; Status DC Lorazepam (Ativan) 0.5 mg PRN Q8HRS PRN PO ANXIETY / AGITATION Last administered on 08/02/16 22:59; Start 08/01/16 at 19:45; Stop 08/03/16 at 10:06 ; Status DC Efavirenz/ Emtricitabine/ Tenofovir (Atripla) 1 tab DAILY PO Last administered on 08/03/16 08:33; Start 08/02/16 at 09:00 Paroxetine HCl (Paxil) 40 mg DAILY PO Last administered on 08/03/16 08:33; Start 08/02/16 at 09:00 Lisinopril (Prinivil) 2.5 mg 1X ONCE PO Last administered on 08/01/16 22:30; Start 08/01/16 at 22:30; Stop 08/01/16 at 22:31; Status DC Nitroglycerin (Nitrostat) 0.4 mg 1X ONCE SL ; Start 08/02/16 at 02:45; Stop 02/06 at 02:46; Status DC Acetaminophen (Tylenol) 1,000 mg PRN Q4HRS PRN PO MILD PAIN / TEMP; Start 08/02 at 12:30 Nicotine (Nicoderm Cq 14mg) 1 patch DAILY TD Last administered on 08/03/16 08: 35; Start 08/02/16 at 12:15 Metoprolol Tartrate (Lopressor) 25 mg BID PO Last administered on 08/03/16 08: 34; Start 08/02/16 at 21:00 Lisinopril (Prinivil) 10 mg DAILY PO ; Start 08/04/16 at 09:00 Active Scripts Active Reported Paxil (Paroxetine Hcl) 40 Mg Tablet 40 Mg PO DAILY Atenolol-Chlorthalidone 100-25 (Atenolol/Chlorthalidone) 1 Each Tablet 1 Tab PO DAILY Atripla Tablet (Efavirenz/Emtricitab/Tenofovir) 1 Each Tablet 1 Each PO DAILY Vitals/I & O Vital Sign - Last 24 Hours 08/02/16 08/02/16 08/02/16 08/02/16 18:00 19:00 20:00 20:00 Temp 97.6 97.6 Pulse 81 88 102 Resp 22 20 31 B/P (MAP) 124/86 (99) 147/102 (117) 142/101 (115) Pulse Ox 95 97 97 O2 Delivery Room Air Room Air Room Air Room Air 08/02/16 08/02/16 08/02/16 08/02/16 21:00 21:37 22:00 23:00 Pulse 88 80 93 90 Resp 20 20 20 B/P (MAP) 149/100 (116) 149/100 143/93 (110) 145/92 (109) Pulse Ox 97 97 97 O2 Delivery Room Air Room Air Room Air 08/03/16 08/03/16 08/03/16 08/03/16 00:00 00:00 01:00 02:00 Temp 98.0 98.0 Pulse 85 82 94 Resp 22 20 27 B/P (MAP) 119/85 (96) 136/92 (107) 109/73 (85) Pulse Ox 98 97 97 O2 Delivery Room Air Room Air Room Air Room Air 08/03/16 08/03/16 08/03/16 08/03/16 03:00 04:00 04:00 05:00 Temp 97.9 97.9 Pulse 94 92 97 Resp 16 B/P (MAP) 114/67 (83) 112/80 (91) 128/82 (97) Pulse Ox 97 98 99 O2 Delivery Room Air Room Air Room Air Room Air 08/03/16 08/03/16 08/03/16 08/03/16 06:00 07:00 07:29 08:00 Temp 98.3 98.3 Pulse 85 95 89 Resp 22 B/P (MAP) 116/79 (91) 142/98 (113) 145/102 (116) Pulse Ox 98 99 95 O2 Delivery Room Air Room Air Room Air Room Air 08/03/16 08/03/16 08/03/16 08/03/16 08:34 08:34 08:53 11:00 Temp 98.2 98.2 Pulse 89 89 89 92 Resp 22 B/P (MAP) 145/102 145/102 128/79 (95) 123/82 (96) Pulse Ox 98 98 O2 Delivery Room Air Room Air 08/03/16 15:00 Temp 98.0 98.0 Pulse 88 Resp 22 B/P (MAP) 135/87 (103) Pulse Ox 98 O2 Delivery Room Air Intake and Output 08/02/16 08/02/16 08/03/16 15:00 23:00 07:00 Intake Total 2035 ml 580 ml 840 ml Output Total 775 ml 0 ml 600 ml Balance 1260 ml 580 ml 240 ml MICHAEL BASS MD Aug 03, 2016 17:15
[2016-08-03] MEDS: ATORVASTATIN CALCIUM 20 MG TABLET PO SCH (20:55)
[2016-08-04 03:00] VITALS: BP 121/73
[2016-08-04 07:00] VITALS: BP 122/87
[2016-08-04] MEDS ORDERED: ASPI-482 PO (08:05)
[2016-08-04] MEDS ORDERED: METO25TA4 PO (08:05)
[2016-08-04] MEDS ORDERED: TICA90TA PO (08:05)
[2016-08-04] MEDS ORDERED: ATOR20TA PO (08:05)
[2016-08-04] MEDS ORDERED: LISI10TA2 PO (08:05)
[2016-08-04] MEDS ORDERED: LISINOPRIL 10 MG TABLET PO SCH (09:00)
[2016-08-04] MEDS: PARoxetine 20 MG TABLET PO SCH (09:21)
[2016-08-04] MEDS: ASPIRIN ENTERIC COATED 81 MG TABLET.DR. PO SCH (09:21)
[2016-08-04] MEDS: NICOTINE 14MG PATCH. TD SCH (09:21)
[2016-08-04] MEDS: TICAGRELOR 90 MG TABLET. PO SCH (09:22)
[2016-08-04] MEDS: METOPROLOL TART IMMED RELEASE 25 MG TABLET. PO SCH (09:26)
[2016-08-04 11:00] VITALS: BP 125/81
--- NOTE | 2016-08-04 11:01 | PDOC3 ---
Discharge Summary Visit Information Date of Admission: Aug 01, 2016 Date of Discharge: Aug 04, 2016 Admitting Diagnosis Comment: ST elevated myocardial infarction. Bare-metal stent to mid LAD occlusion. Troponin peak at >500. Ejection fraction of 35-40% on echocardiogram Final Diagnosis Problems Medical Problems: (1) Drug abuse Status: Acute Brief Hospital Course Allergies Allergies Coded Allergies Type Severity Reaction Last Updated Verified No Known Drug Allergies 08/01/16 No Vital Signs Vital Signs Date Time Temp Pulse Resp B/P (MAP) Pulse Ox O2 Delivery O2 Flow Rate FiO2 08/04/16 09:26 83 122/87 08/04/16 07:44 Room Air 08/04/16 07:00 98.7 18 92 98.7 08/03/16 20:15 2.0 Lab Results Laboratory Tests Test 08/03/16 10:00 Sodium Level 138 mmol/L (136-145) Potassium Level 3.5 mmol/L (3.5-5.1) Chloride Level 101 mmol/L (98-107) Carbon Dioxide Level 26 mmol/L (21-32) Anion Gap 11 (6-14) Blood Urea Nitrogen 17 mg/dL (8-26) Creatinine 1.5 mg/dL (0.7-1.3) Estimated GFR (Cockcroft-Gault) 63.7 Glucose Level 161 mg/dL (70-99) Calcium Level 8.9 mg/dL (8.5-10.1) Brief Hospital Course Mr. Perera is a 36 old AA male admitted for CP,no known CAD prior but poor lifestyle habits, trop peaked> 500, cardiac cath done, BMS done,. Stable to dc and ff up cards as instructed NEw RX written for him ( 5 new meds) Pt seen and examined Dw RN at bedside and pt hayden 31 > 50 % cousnelling Discharge Information Condition at Discharge: Improved, Stable Follow Up: Weeks (4 weeks crads) Disposition/Orders: D/C to Home Scheduled Atenolol/Chlorthalidone (Atenolol-Chlorthalidone 100-25), 1 TAB PO DAILY, ( Reported) Efavirenz/Emtricitab/Tenofovir (Atripla Tablet), 1 EACH PO DAILY, (Reported) Paroxetine Hcl (Paxil), 40 MG PO DAILY, (Reported) VINEET LIZAMA MD Aug 04, 2016 11:01
[2016-08-04] MEDS: TENOFOVIR PO SCH (12:29)
[2016-08-04] MEDS: EFAVIRENZ PO SCH (12:29)
[2016-08-04] MEDS: EMTRICITAB PO SCH (12:29)
[2016-08-04] MEDS ORDERED: PRAS10TA9 PO (13:55)
--- NOTE | 2016-08-04 15:31 | PDOC ---
PROGRESS NOTES Subjective Subjective The patient looks and feels better today. No chest pain. Objective Objective Vital Signs Date Time Temp Pulse Resp B/P (MAP) Pulse Ox O2 Delivery O2 Flow Rate FiO2 08/04/16 11:00 98.2 88 18 125/81 (96) 97 Room Air 98.2 08/03/16 20:15 2.0 Intake and Output 08/04/16 07:00 Intake Total 2180 ml Output Total 650 ml Balance 1530 ml Intake Oral 2180 ml Output Urine Total 650 ml # Voids 4 # Bowel Movements 1 Physical Exam Abdomen: Normal bowel sounds Heart: Regular rate General: No acute distress HEENT: Atraumatic Lungs: Clear to auscultation Assessment Assessment Problems Medical Problems: (1) Drug abuse Status: Acute Assessment 1. STEMI troponin peaked > 500 BMS to mid LAD; DAPT for at least the next 30 days, then ASA indefinitely LVEF 35-40% with LV hypokinesis - no indication for LifeVest as EF > 35% BB, ACEI and statin therapy Brilinta changed to Effient. 6 weeks of samples given to the patient. Office follow up in 4 weeks. Discussed with the patient. 2. mixed hyperlipidemia statin therapy 3. HTN improved control continue medications Comment Review of Relevant I have reviewed the following items nicolas (where applicable) has been applied. Labs Laboratory Tests Test 08/03/16 10:00 Sodium Level 138 mmol/L (136-145) Potassium Level 3.5 mmol/L (3.5-5.1) Chloride Level 101 mmol/L (98-107) Carbon Dioxide Level 26 mmol/L (21-32) Anion Gap 11 (6-14) Blood Urea Nitrogen 17 mg/dL (8-26) Creatinine 1.5 mg/dL (0.7-1.3) Estimated GFR (Cockcroft-Gault) 63.7 Glucose Level 161 mg/dL (70-99) Calcium Level 8.9 mg/dL (8.5-10.1) Medications Current Medications Fentanyl Citrate (Fentanyl 2ml Vial) 75 mcg 1X ONCE IV Last administered on 10:22; Start 08/01/16 at 10:30; Stop 08/01/16 at 10:31; Status DC Heparin Sodium (Porcine) (Heparin Sodium) 4,000 unit 1X ONCE IV Last administered on 6/11/17at 10:29; Start 08/01/16 at 10:30; Stop 08/01/16 at 10:31 ; Status DC Iohexol (Omnipaque 300 Mg/ml) 100 ml STK-MED ONCE .ROUTE ; Start 08/01/16 at 10: 43; Stop 08/01/16 at 10:44; Status DC Heparin Sodium/ Sodium Chloride 1,500 ml @ As Directed STK-MED ONCE .ROUTE ; Start 08/01/16 at 10:43; Stop 08/01/16 at 10:44; Status DC Lidocaine HCl 20 ml STK-MED ONCE .ROUTE ; Start 08/01/16 at 10:43; Stop at 10:44; Status DC Midazolam HCl (Versed) 2 mg STK-MED ONCE .ROUTE ; Start 08/01/16 at 10:43; Stop 08/01/16 at 10:44; Status DC Midazolam HCl (Versed) 2 mg STK-MED ONCE .ROUTE ; Start 08/01/16 at 10:44; Stop 08/01/16 at 10:45; Status DC Fentanyl Citrate (Fentanyl 2ml Vial) 100 mcg STK-MED ONCE .ROUTE ; Start at 10:44; Stop 08/01/16 at 10:45; Status DC Iodixanol (Visipaque 320) 100 ml STK-MED ONCE .ROUTE ; Start 08/01/16 at 10:45; Stop 08/01/16 at 10:46; Status DC Heparin Sodium/ Sodium Chloride 1,000 unit 1X ONCE IART Last administered on 12:10; Start 08/01/16 at 11:15; Stop 08/01/16 at 11:16; Status DC Midazolam HCl (Versed) 2 mg 1X ONCE IV Last administered on 08/01/16 12:09; Start 08/01/16 at 11:15; Stop 08/01/16 at 11:16; Status DC Fentanyl Citrate (Fentanyl 2ml Vial) 100 mcg 1X ONCE IV Last administered on 12:09; Start 08/01/16 at 11:15; Stop 08/01/16 at 11:16; Status DC Iodixanol (Visipaque 320) 100 ml 1X ONCE IART Last administered on 08/01/16 12:06; Start 08/01/16 at 11:15; Stop 08/01/16 at 11:16; Status DC Lidocaine HCl 20 ml 1X ONCE IJ Last administered on 08/01/16 12:06; Start 01/07 at 11:15; Stop 08/01/16 at 11:16; Status DC Heparin Sodium (Porcine) (Heparin Sodium) 10,000 unit STK-MED ONCE .ROUTE ; Start 08/01/16 at 11:16; Stop 08/01/16 at 11:17; Status DC Tirofiban/Sodium Chloride 250 ml @ As Directed STK-MED ONCE IV ; Start at 11:16; Stop 08/01/16 at 11:17; Status DC Heparin Sodium (Porcine) (Heparin Sodium) 4,000 unit 1X ONCE IV Last administered on 08/01/16 12:07; Start 08/01/16 at 11:30; Stop 08/01/16 at 11:31 ; Status DC Tirofiban/Sodium Chloride 250 ml @ 0 mls/hr CONT PRN IV PER PROTOCOL Last administered on 08/01/16 11:20; Start 08/01/16 at 11:30; Stop 08/02/16 at 05:29 ; Status DC Ondansetron HCl (Zofran) 4 mg PRN Q8HRS PRN IV NAUSEA/VOMITING; Start 08/01/16 at 11:30; Stop 08/02/16 at 11:29; Status DC Fentanyl Citrate (Fentanyl 2ml Vial) 50 mcg PRN Q2HR PRN IV PAIN Last administered on 08/02/16 08:39; Start 08/01/16 at 11:30; Stop 08/02/16 at 11:29 ; Status DC Iodixanol (Visipaque 320) 100 ml STK-MED ONCE .ROUTE ; Start 08/01/16 at 11:28; Stop 08/01/16 at 11:29; Status DC Atropine Sulfate 0.5 mg STK-MED ONCE .ROUTE ; Start 08/01/16 at 11:29; Stop 01/07 at 11:30; Status DC Dopamine HCl/ Dextrose 250 ml @ As Directed STK-MED ONCE IV ; Start 08/01/16 at 11:31; Stop 08/01/16 at 11:32; Status DC Ticagrelor (Brilinta) 90 mg STK-MED ONCE .ROUTE ; Start 08/01/16 at 11:42; Stop 08/01/16 at 11:43; Status DC Ticagrelor (Brilinta) 180 mg 1X ONCE PO Last administered on 08/01/16 12:07; Start 08/01/16 at 11:45; Stop 08/01/16 at 11:48; Status DC Dopamine HCl/ Dextrose 250 ml @ 14.884 mls/ hr 1X ONCE IV Last administered on 08/01/16 11:38; Start 08/01/16 at 12:00; Stop 08/02/16 at 04:47; Status DC Aspirin (Georgina Aspirin) 325 mg STK-MED ONCE .ROUTE ; Start 08/01/16 at 11:48; Stop 08/01/16 at 11:49; Status DC Sodium Chloride 1,000 ml @ 125 mls/hr 1X ONCE IV Last administered on 11:00; Start 08/01/16 at 12:00; Stop 08/01/16 at 19:59; Status DC Sodium Chloride (Normal Saline Flush) 3 ml QSHIFT PRN IV AFTER MEDS AND BLOOD DRAWS; Start 08/01/16 at 12:30; Stop 08/04/16 at 15:09; Status DC Sodium Chloride 1,000 ml @ 75 mls/hr [id number] IV Last administered on 10:57; Start 08/01/16 at 12:18; Stop 08/02/16 at 12:18; Status DC Tirofiban/Sodium Chloride 250 ml @ 0 mls/hr CONT PRN IV PER PROTOCOL; Start 01/07 at 12:30; Stop 08/02/16 at 06:29; Status DC Aspirin (Ecotrin) 81 mg [id number] PO Last administered on 08/04/16 09:21; Start 08/02/16 at 08:00; Stop 08/04/16 at 15:09; Status DC Ticagrelor (Brilinta) 90 mg BID PO Last administered on 08/04/16 09:22; Start 08/02/16 at 09:00; Stop 08/04/16 at 15:09; Status DC Metoprolol Tartrate (Lopressor) 12.5 mg BID PO Last administered on 08/02/16 08:31; Start 08/01/16 at 21:00; Stop 08/02/16 at 12:25; Status DC Lisinopril (Prinivil) 5 mg DAILY PO Last administered on 08/03/16 08:34; Start 08/01/16 at 13:30; Stop 08/03/16 at 10:09; Status DC Atorvastatin Calcium (Lipitor) 20 mg QHS PO Last administered on 08/03/16 20: 55; Start 08/01/16 at 21:00; Stop 08/04/16 at 15:09; Status DC Acetaminophen (Tylenol) 650 mg PRN Q6HRS PRN PO MILD PAIN / TEMP; Start at 12:30; Stop 08/02/16 at 12:18; Status DC Fentanyl Citrate (Fentanyl 2ml Vial) 50 mcg PRN Q1HR PRN IV MODERATE OR SEVERE PAIN; Start 08/01/16 at 12:30; Stop 08/01/16 at 22:12; Status DC Nitroglycerin (Nitrostat) 0.4 mg PRN Q5MIN PRN SL CHEST PAIN; Start 08/01/16 at 12:30; Stop 08/04/16 at 15:09; Status DC Amiodarone HCl 150 mg/Dextrose 103 ml @ 10 mls/min 1X PRN PRN IV FOR VENTRICULAR TACHYCARDIA; Start 08/01/16 at 12:30; Stop 08/04/16 at 15:09; Status DC Lidocaine HCl (Lidocaine HCl 2% Abboject) 100 mg 1X PRN PRN IV FOR VENTRICULAR TACHYCARDIA; Start 08/01/16 at 12:30; Stop 08/04/16 at 15:09; Status DC Atropine Sulfate 0.5 mg PRN 1X PRN IV BRADYCARDIA; Start 08/01/16 at 12:30; Stop 08/04/16 at 15:09; Status DC Potassium Chloride (Klor-Con) 20 meq 1X ONCE PO Last administered on 14:56; Start 08/01/16 at 12:45; Stop 08/01/16 at 12:46; Status DC Nicotine (Nicoderm Cq 14mg) 1 patch DAILY TD ; Start 08/02/16 at 09:00; Status Cancel Lorazepam (Ativan) 0.5 mg 1X ONCE PO Last administered on 08/01/16 18:43; Start 08/01/16 at 18:15; Stop 08/01/16 at 18:19; Status DC Lorazepam (Ativan) 0.5 mg PRN Q8HRS PRN PO ANXIETY / AGITATION Last administered on 08/02/16 22:59; Start 08/01/16 at 19:45; Stop 08/03/16 at 10:06 ; Status DC Efavirenz/ Emtricitabine/ Tenofovir (Atripla) 1 tab DAILY PO Last administered on 08/04/16 12:29; Start 08/02/16 at 09:00; Stop 08/04/16 at 15:09; Status DC Paroxetine HCl (Paxil) 40 mg DAILY PO Last administered on 08/04/16 09:21; Start 08/02/16 at 09:00; Stop 08/04/16 at 15:09; Status DC Lisinopril (Prinivil) 2.5 mg 1X ONCE PO Last administered on 08/01/16 22:30; Start 08/01/16 at 22:30; Stop 08/01/16 at 22:31; Status DC Nitroglycerin (Nitrostat) 0.4 mg 1X ONCE SL ; Start 08/02/16 at 02:45; Stop 02/06 at 02:46; Status DC Acetaminophen (Tylenol) 1,000 mg PRN Q4HRS PRN PO MILD PAIN / TEMP Last administered on 08/04/16 00:17; Start 08/02/16 at 12:30; Stop 08/04/16 at 15:09 ; Status DC Nicotine (Nicoderm Cq 14mg) 1 patch DAILY TD Last administered on 08/04/16 09: 21; Start 08/02/16 at 12:15; Stop 08/04/16 at 15:09; Status DC Metoprolol Tartrate (Lopressor) 25 mg BID PO Last administered on 08/04/16 09: 26; Start 08/02/16 at 21:00; Stop 08/04/16 at 15:09; Status DC Lisinopril (Prinivil) 10 mg DAILY PO Last administered on 08/04/16 09:26; Start 08/04/16 at 09:00; Stop 08/04/16 at 15:09; Status DC Active Scripts Active Lipitor (Atorvastatin Calcium) 20 Mg Tablet 20 Mg PO HS Aspir 81 (Aspirin) 81 Mg Tablet.dr 1 Tab PO DAILY Metoprolol Tartrate 25 Mg Tablet 1 Tab PO BID Lisinopril 10 Mg Tablet 1 Tab PO DAILY Reported Effient (Prasugrel Hcl) 10 Mg Tablet 1 Tab PO DAILY Paxil (Paroxetine Hcl) 40 Mg Tablet 40 Mg PO DAILY Atripla Tablet (Efavirenz/Emtricitab/Tenofovir) 1 Each Tablet 1 Each PO DAILY Vitals/I & O Vital Sign - Last 24 Hours 08/03/16 08/03/16 08/03/16 08/03/16 19:00 20:15 20:54 23:02 Temp 98.6 98.0 98.6 98.0 Pulse 85 85 88 Resp 20 20 B/P (MAP) 117/76 (90) 117/76 142/77 (98) Pulse Ox 95 92 O2 Delivery Room Air Room Air Room Air O2 Flow Rate 2.0 08/04/16 08/04/16 08/04/16 08/04/16 03:00 07:00 07:44 09:26 Temp 97.9 98.7 97.9 98.7 Pulse 91 88 83 Resp 18 18 B/P (MAP) 121/73 (89) 122/87 (99) 122/87 Pulse Ox 95 92 O2 Delivery Room Air Room Air Room Air 08/04/16 08/04/16 09:26 11:00 Temp 98.2 98.2 Pulse 83 88 Resp 18 B/P (MAP) 122/87 125/81 (96) Pulse Ox 97 O2 Delivery Room Air Intake and Output 08/03/16 08/03/16 08/04/16 15:00 23:00 07:00 Intake Total 600 ml 840 ml 740 ml Output Total 650 ml Balance -50 ml 840 ml 740 ml ALEXANDRA MATA MD Aug 04, 2016 15:31
[2016-08-05 15:13] LABS: POTASSIUM ISTAT 3.2 mmol/L (3.5-5.0)
== END 2016-08-04 14:30 | disposition home or self-care (01) | DRG 248 ==
LOC: ER 10:13 → 1 WEST ICU 11:15 → 2 SOUTH 08-03 20:24
PROVIDERS: ADMIT Internal Medicine Hematology & Oncology; ATTEND Internal Medicine Hematology & Oncology
PROC: 02703DZ Dilation of Coronary Artery, One Artery with Intraluminal Device, Percutaneous Approach (ICD-10-PCS; principal; 2016-08-01)
PROC: 4A023N7 Measurement of Cardiac Sampling and Pressure, Left Heart, Percutaneous Approach (ICD-10-PCS; 2016-08-01)
PROC: B2151ZZ Fluoroscopy of Left Heart using Low Osmolar Contrast (ICD-10-PCS; 2016-08-01)
PROC: B2101ZZ Fluoroscopy of Single Coronary Artery using Low Osmolar Contrast (ICD-10-PCS; 2016-08-01)
DX: I21.02 ST elevation (STEMI) myocardial infarction involving left anterior descending coronary artery (principal); N17.0 Acute kidney failure with tubular necrosis; E78.2 Mixed hyperlipidemia; F17.200 Nicotine dependence, unspecified, uncomplicated; I10 Essential (primary) hypertension; Z82.49 Family history of ischemic heart disease and other diseases of the circulatory system
CPT/HCPCS: 36415; 71010; 80047; 80048; 80053; 80061; 82550; 83690; 83735; 83880; 84484; 85027; 85347; 85610; 85730; 87641; 92941; 93005; 93306; 93454; 96374; 96375; C1725; C1769; C1771; C1877; C1887; C1892; G0269; G0480; G0481; J1265; J2250; J3010; J7030; 99291-25; J3246

== ENCOUNTER → 2017-10-20 | Outpatient (CLI) | payer MEDICAID, OTHER ==
[~2017-10-20] MED LIST: ASPI-482 PO; ATEN1TAB4 PO; ATOR20TA PO; EFAV1TAB PO; LISI10TA2 PO; METO25TA4 PO; PARO40TA61 PO; PRAS10TA9 PO; TICA90TA PO
--- NOTE | 2017-10-20 16:23 | CARD ---
MR#: [id number] Date of Study: 10/20/2017 Ordering Physician: ALEXANDRA RICHEY, Referring Physician: ALEXANDRA RICHEY, Tech: Edda Muhammad CARON APPROVED REPORT EXAM: Two-dimensional and M-mode echocardiogram with Doppler and color Doppler. Other Information Quality : Good INDICATION Hypertension/HCVD DVT 2D DIMENSIONS RVDd2.7 (2.9-3.5cm)Left Atrium(2D)4.9 (1.6-4.0cm) IVSd1.4 (0.7-1.1cm)Aortic Root(2D)3.0 (2.0-3.7cm) LVDd5.5 (3.9-5.9cm)LVOT Diameter2.0 (1.8-2.4cm) PWd1.4 (0.7-1.1cm)LVDs4.6 (2.5-4.0cm) FS (%) 16.4 %SV49.2 ml Aortic Valve AoV Peak Juancho.116.1cm/sAoV VTI15.6cm AO Peak GR.5.4mmHgLVOT Peak Juancho.117.6cm/s AO Mean GR.3mmHgAVA (VMAX)3.26cm2 Mitral Valve MV E Lailayzr771.2cm/sMV DECEL OVWN701hb MV A Velocity4.9cm/sE/A Ratio27.6 Tricuspid Valve TR P. Ufdlkxfp027av/sRAP TSESJJRC8wiCc TR Peak Gr.95uzMvBARD97vjHm Pulmonary Vein S1 Htwshvmu54.9cm/sD2 Ydnstmiq25.8cm/s LEFT VENTRICLE The Left Ventricle is mildly dilated. There is mild concentric left ventricular hypertrophy. Left malena tricle systolic function is moderately severely impaired. The Ejection Fraction is 25-30%. There is g lobal hypokinesis of the left ventricle. RIGHT VENTRICLE The right ventricle is normal size. The right ventricular systolic function is normal. ATRIA The left atrium is mildly dilated. The right atrium size is normal. The interatrial septum is intact with no evidence for an atrial septal defect or patent foramen ovale as noted on 2-D or Doppler imagi ng. AORTIC VALVE The aortic valve is normal in structure and function. Doppler and Color Flow revealed no significant aortic regurgitation. There is no significant aortic valvular stenosis. MITRAL VALVE The mitral valve is normal in structure and function. There is no evidence of mitral valve prolapse. There is no mitral valve stenosis. Doppler and Color-flow revealed moderate mitral regurgitation. TRICUSPID VALVE The tricuspid valve is normal in structure and function. Doppler and Color Flow revealed mild tricusp id regurgitation. There is moderate pulmonary hypertension. The PA pressure was estimated at 51 mmHg. There is no tricuspid valve stenosis. PULMONIC VALVE The pulmonary valve is normal in structure and function. Doppler and Color Flow revealed mild pulmoni c valvular regurgitation. There is no pulmonic valvular stenosis. GREAT VESSELS The aortic root is normal in size. The ascending aorta is normal in size. The IVC is normal in size a nd collapses >50% with inspiration. PERICARDIAL EFFUSION There is no evidence of significant pericardial effusion. Critical Notification Critical Value: No <Conclusion> The Left Ventricle is mildly dilated. Left ventricle systolic function is moderately severely impaired. The Ejection Fraction is 25-30%. There is global hypokinesis of the left ventricle. There is mild concentric left ventricular hypertrophy. There is no significant aortic valvular stenosis. Doppler and Color Flow revealed no significant aortic regurgitation. Doppler and Color-flow revealed moderate mitral regurgitation. Doppler and Color Flow revealed mild tricuspid regurgitation. There is moderate pulmonary hypertension. The PA pressure was estimated at 51 mmHg. Signed by : Alexandra Richey MD Electronically Approved : 10/20/2017 16:23:03
--- NOTE | 2017-10-21 09:03 | RAD ---
MR#: [id number] Date of Study: 10/20/2017 Ordering Physician: ALEXANDRA MATA, Referring Physician: ALEXANDRA MATA, Tech: Mickie Eduardo, ROCKY, RVT, RTR APPROVED REPORT Bilateral Lower Extremity Venous Study for DVT Patient Location: OUT-PATIENT Indications Lower Extremity Pain: Bilateral Findings The bilateral lower extremity deep veins were evaluated for thrombus with color Doppler, spectral and grayscale images. On the right the grayscale images of the common femoral, superficial femoral and popliteal veins do n ot demonstrate any evidence of thrombus and these veins appear to be compressible. The below-knee vei ns were not well visualized but grossly appear to be compressible. Spectral imaging and color Doppler do not reveal any evidence of obstruction to flow with normal respirophasic variation above the knee . Below the knee there is spontaneous flow noted. On the left, the grayscale images of the common femoral, superficial femoral and popliteal veins do n ot demonstrate any evidence of thrombus and these veins appear to be compressible. The below-knee vei ns again were not well visualized but grossly appear to be compressible. Spectral imaging and color D oppler do not reveal any evidence of obstruction to flow with normal respirophasic variation above th e knee. The below-knee veins demonstrate spontaneous flow. Critical Notification Critical Value: No <Conclusion> No evidence of DVT. Signed by : Sergei Blakely, Electronically Approved : 10/21/2017 09:03:23
== END | disposition home or self-care (01) ==
LOC: ECHO 12:53
PROVIDERS: ATTEND Internal Medicine Cardiovascular Disease
DX: I08.8 Other rheumatic multiple valve diseases (principal); I27.20 Pulmonary hypertension, unspecified; I82.493 Acute embolism and thrombosis of other specified deep vein of lower extremity, bilateral; I10 Essential (primary) hypertension; E78.2 Mixed hyperlipidemia; Z87.891 Personal history of nicotine dependence
CPT/HCPCS: 93306; 93970

== ENCOUNTER → 2018-04-20 | Outpatient (CLI) | payer OTHER ==
[2018-02-13 15:00] VITALS: BP 121/87
[~2018-04-20] MED LIST changes: +CARV6.2511 PO; +FOLI1TAB16 PO; +FURO-68 PO; +REGADENOSON 0.4 MG/5 ML DISP.SYRIN. IV ONE; +SACU1TAB PO; +THIA100V3 IM
--- NOTE | 2018-04-20 13:29 | RAD ---
MR#: [id number] Date of Study: 04/20/2018 Ordering Physician: ALEXANDRA MATA, Referring Physician: MAGGIE BARNES Tech: JOSUE Mclaughlin ARRT (Zackary) (N) APPROVED REPORT Test Type: Pharmacological Stress Nurse/Tech: Lisa Paulson R.N., Sophia Roberts RN Test Indications: chest pain, increasing SOA Cardiac History: stent, current smoker, HTN Medications: See Electronic Medical Record Medical History: See Electronic Medical Record Resting ECG: ST with ST elevation in leads V2-V5 Resting Heart Rate: 100 bpm Resting Blood Pressure: 138/95mmHg Pretest Chest Pain: Atypical angina Nurse/Tech Notes S1S2. Lung sounds coarse on RLL. Pt c/o dull chest pain 2/10 with SOA that has been steadily increasi ng. Consent: The procedure was explained to the patient in lay terms. Informed consent was witnessed. Shawn eout was entered into NERITES. History and Stress Test performed by RT Albert (R) (N) Pharm. Details Pharmacologic stress testing was performed using 0.4mg per 5ml of regadenoson given intravenously ove r 7-10 seconds. Stress Symptoms Nausea, stomach cramping, increased SOA from baseline POST EXERCISE Reason for Termination: Infusion complete Max HR: 106 bpm Max Blood Pressure: 133/95mmHg Blood Pressure response to exercise: Normal blood pressure response during stress. Heart Rate response to exercise: within normal limits Chest Pain: Yes. same as baseline Arrhythmia: No. ST Change: No. 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 No isc hemic changes at peak stress. No arrhythmias. Imaging Protocol IMAGE PROTOCOL: Rest Tc-99m/stress Tc-99m 1 day Rest: Stress: Viability: Radiopharm.Tc99m YqjgedhuuMj61r Sestamibi Jnad88aYb 30.6mCi Img Date 04/20/2018 04/20/2018 Inj-Img Udyl90haz. 60min. Rest Admin Site:IV - Left AntecubitalAdministrator:Bri Tao, NMTCB, ARRT (R)(N) Stress Admin Site: IV - Left AntecubitalAdministrator: RT Albert (R)(N) STRESS DATA End Diast. Vol.275.0mlAv. Heart Rate95.0bpm End Syst. Vol.181.0mlCO Index BSA0.0L/min Myocardial Mxxa619.0gEject. Tdvruqkn83.0% Stress Rates Pk. Fill Rate1.95EDV/secLVtime Pk. Fill 54.53msec Pk. Empty Rate2.41ESV/secLVtime Pk. Tkuke140.78msec 02/23 Pk. Fill1.44EDV/sec Stress Scores Regional WT3.00Summed WT43.00 Regional WM2.00Summed WM24.00 LV Perfusion Scintigraphic images showed large predominantly fixed perfusion defect involving the mid to distal an terior wall and the entire apical wall consistent with previous myocardial infarction with small amou nt of reversibility consistent with helen-infarct ischemia. Wall Motion Severe hypokinesis of the distal anterior wall and akinetic apical wall with ejection fraction calcul ated at 34%. LV Perf. Quant 17 Seg. SSS21.00 17 Seg. SRS21.00 17 Seg. SDS3.00 Stress Defect Extent (% LAD)68.10Rest Defect Extent (% LAD)66.90Rev. Defect Extent (% LAD)26.30 Stress Defect Extent (% LCX) 10.00Rest Defect Extent (% LCX)6.30Rev. Defect Extent (% LCX)7.50 Stress Defect Extent (% RCA)40.00Rest Defect Extent (% RCA)26.70Rev. Defect Extent (% RCA)2.20 Stress Defect Extent (% LUDA)47.20Rest Defect Extent (% LUDA)43.70Rev. Defect Extent (% LUDA)14.80 Conclusion 1. Regadenoson cardioisotope stress test showed large infarct involving the mid to distal anterior wa ll and the entire apical wall with small amount of helen-infarct ischemia. 2. Severe hypokinesis of the distal anterior wall and akinetic apical wall with ejection fraction evelin culated at 34%. 3. Low to intermediate risk for cardiac events. Signed by : Adolfo Choi, Electronically Approved : 04/20/2018 13:29:08
== END | disposition home or self-care (01) ==
LOC: NM 15:38
PROVIDERS: ATTEND Internal Medicine Cardiovascular Disease
DX: I25.118 Atherosclerotic heart disease of native coronary artery with other forms of angina pectoris (principal); I10 Essential (primary) hypertension; I25.2 Old myocardial infarction; Z79.01 Long term (current) use of anticoagulants; Z87.891 Personal history of nicotine dependence
CPT/HCPCS: 78452; 93017; 96374; A9500; J2785

== ENCOUNTER 2018-06-22 15:58 | Inpatient (IN) | payer OTHER ==
[~2018-06-22] VITALS: Ht 175.3 cm; Wt 83.5 kg
[~2018-06-22 15:58] MED LIST changes: -CARV6.2511 PO; -REGADENOSON 0.4 MG/5 ML DISP.SYRIN. IV ONE; -SACU1TAB PO
[2018-06-22] MEDS ORDERED: methylPREDNISolone SOD SUCC PF 125 MG/2 ML VIAL. IV ONE (16:15)
[2018-06-22] MEDS ORDERED: IPRATRPIUM/ALBUTEROL 0.5/2.5MG 3 ML NEBU. NEB ONE (16:15)
[2018-06-22 16:34] LABS: BASO # 0.1 x10^3/uL (0.0-0.2); BASO % 1 % (0-3); EOS # 0.2 x10^3/uL (0.0-0.7); EOS % 2 % (0-3); HEMATOCRIT 36.8 % (39.0-53.0); HEMOGLOBIN 11.7 g/dL (13.0-17.5); LYMPH % 24 % (24-48); MEAN CORPUSCULAR HEMOGLOBIN 27 pg (25-35); MEAN CORPUSCULAR HGB CONC 32 g/dL (31-37); MEAN CORPUSCULAR VOLUME 86 fL (79-100); MONO # 0.3 x10^3/uL (0.0-1.1); MONO % 4 % (0-9); NEUT # 5.8 x10^3uL (1.8-7.7); NEUT % 69 % (31-73); PLATELET COUNT 430 x10^3/uL (140-400); RED BLOOD COUNT 4.27 x10^6/uL (4.30-5.70); RED CELL DISTRIBUTION WIDTH 19.8 % (11.5-14.5); WHITE BLOOD COUNT 8.3 x10^3/uL (4.0-11.0)
[2018-06-22 16:44] LABS: CALCIUM 9.1 mg/dL (8.5-10.1); CREATININE 1.7 mg/dL (0.7-1.3); GFR 54.9; POTASSIUM 3.7 mmol/L (3.5-5.1)
[2018-06-22 16:50] LABS: ALBUMIN 2.4 g/dL (3.4-5.0); ALBUMIN/GLOBULIN RATIO 0.4 (1.0-1.7); TOTAL BILIRUBIN 0.4 mg/dL (0.2-1.0); TOTAL PROTEIN 7.8 g/dL (6.4-8.2)
--- NOTE | 2018-06-22 17:08 | PHYS DOC ---
Past Medical History Past Medical History: Bronchitis, CHF, Hypertension Additional Past Medical Histor: "HEARING VOICES" (VICTORINA GUO) Past Surgical History: Other Additional Past Surgical Histo: UNKNOWN (VICTORINA GUO) Alcohol Use: Heavy Drug Use: Methadone (VICTORINA GUO) Adult General Chief Complaint Chief Complaint: SHORTNESS OF BREATH HPI HPI Patient is a 37 year old male with history of CHF and hypertension presents to ED complaining of cough times one to 2 weeks. Patient states that his cough. States she's been coughing up green soft. Associated symptoms include subjective fever, congestion, sore throat, chest pain and shortness of breath. History of similar symptoms in the past. Person presents to ED with oxygen saturation in the low 80s. Patient put on 4 L improved to 95%. Denies recent travel, lower leg swelling, weakness, syncope, rash, abdominal pain, nausea/vomiting. (VICTORINA GUO) Review of Systems Review of Systems Constitutional: Complains of subjective fever, Denies chills [] Eyes: Denies change in visual acuity, redness, or eye pain [] HENT: Complains of congestion and sore throat.[] Respiratory: Complains of produtive cough and shortness of breath. [] Cardiovascular: No additional information not addressed in HPI [] GI: Denies abdominal pain, nausea, vomiting, bloody stools or diarrhea [] : Denies dysuria or hematuria [] Musculoskeletal: Denies back pain or joint pain [] Integument: Denies rash or skin lesions [] Neurologic: Denies headache, focal weakness or sensory changes [] Endocrine: Denies polyuria or polydipsia [] All other systems were reviewed and found to be within normal limits, except as documented in this note. (VICTORINA GUO) Current Medications Current Medications Current Medications Medications (Trade) Dose Ordered Sig/Wilbur Start Time Stop Time Status Last Admin Dose Admin Albuterol/ Ipratropium (Duoneb) 3 ml 1X ONCE 06/22/18 16:15 06/22/18 16:20 DC 06/22/18 16:26 3 ML Methylprednisolone Sodium Succinate (SOLU-Medrol 125MG VIAL) 125 mg 1X ONCE 06/22/18 16:15 06/22/18 16:20 DC 06/22/18 16:56 125 MG (GOLLAPALLI,MARYANA E DO) Allergies Allergies Allergies Coded Allergies Type Severity Reaction Last Updated Verified No Known Drug Allergies 08/01/16 No (GOLLAPALLI,MARYANA E DO) Physical Exam Physical Exam Constitutional: mild distress, non-toxic appearance. [] HENT: Normocephalic, atraumatic, bilateral external ears normal, oropharynx moist, no oral exudates, nose normal. [] Eyes: PERRLA, EOMI, conjunctiva normal, no discharge. [] Neck: Normal range of motion, no tenderness, supple, no stridor. [] Cardiovascular:Tachycardic regular rhythm, no murmur [] Lungs & Thorax: Moderate wheezing and coarse breath sounds bilaterally. [] Abdomen: Bowel sounds normal, soft, no tenderness, no masses, no pulsatile masses. [] Skin: Warm, dry, no erythema, no rash. [] Back: No tenderness, no CVA tenderness. [] Extremities: No tenderness, no cyanosis, no clubbing, ROM intact, no edema. [] Neurologic: Alert and oriented X 3, normal motor function, normal sensory function, no focal deficits noted. [] Psychologic: Affect normal, judgement normal, mood normal. [] (VICTORINA GUO) Current Patient Data Vital Signs Vital Signs Date Time Temp Pulse Resp B/P (MAP) Pulse Ox O2 Delivery O2 Flow Rate FiO2 06/22/18 17:21 118 21 160/11 (60) 93 Nasal Cannula 4.0 06/22/18 16:26 99.6 99.6 (GOLLAPALLI,MARYANA E DO) Lab Values Laboratory Tests Test 06/22/18 16:20 White Blood Count 8.3 x10^3/uL (4.0-11.0) Red Blood Count 4.27 x10^6/uL (4.30-5.70) L Hemoglobin 11.7 g/dL (13.0-17.5) L Hematocrit 36.8 % (39.0-53.0) L Mean Corpuscular Volume 86 fL (79-100) Mean Corpuscular Hemoglobin 27 pg (25-35) Mean Corpuscular Hemoglobin Concent 32 g/dL (31-37) Red Cell Distribution Width 19.8 % (11.5-14.5) H Platelet Count 430 x10^3/uL (140-400) H Neutrophils (%) (Auto) 69 % (31-73) Lymphocytes (%) (Auto) 24 % (24-48) Monocytes (%) (Auto) 4 % (0-9) Eosinophils (%) (Auto) 2 % (0-3) Basophils (%) (Auto) 1 % (0-3) Neutrophils # (Auto) 5.8 x10^3uL (1.8-7.7) Lymphocytes # (Auto) 2.0 x10^3/uL (1.0-4.8) Monocytes # (Auto) 0.3 x10^3/uL (0.0-1.1) Eosinophils # (Auto) 0.2 x10^3/uL (0.0-0.7) Basophils # (Auto) 0.1 x10^3/uL (0.0-0.2) Sodium Level 139 mmol/L (136-145) Potassium Level 3.7 mmol/L (3.5-5.1) Chloride Level 104 mmol/L (98-107) Carbon Dioxide Level 25 mmol/L (21-32) Anion Gap 10 (6-14) Blood Urea Nitrogen 15 mg/dL (8-26) Creatinine 1.7 mg/dL (0.7-1.3) H Estimated GFR (Cockcroft-Gault) 54.9 BUN/Creatinine Ratio 9 (6-20) Glucose Level 111 mg/dL (70-99) H Lactic Acid Level 1.7 mmol/L (0.4-2.0) Calcium Level 9.1 mg/dL (8.5-10.1) Total Bilirubin 0.4 mg/dL (0.2-1.0) Aspartate Amino Transferase (AST) 25 U/L (15-37) Alanine Aminotransferase (ALT) 33 U/L (16-63) Alkaline Phosphatase 122 U/L (46-116) H Troponin I Quantitative 0.050 ng/mL (0.000-0.055) ZX-Aav-P-Type Natriuretic Peptide 45679 pg/mL (0-124) H Total Protein 7.8 g/dL (6.4-8.2) Albumin 2.4 g/dL (3.4-5.0) L Albumin/Globulin Ratio 0.4 (1.0-1.7) L Laboratory Tests 06/22/18 16:20 Laboratory Tests 06/22/18 16:20 (MARYANA MUSA DO) EKG EKG []EKG shows Sinus Tachycardia with 117 BPM. No STEMI. (VICTORINA GUO) Radiology/Procedures Radiology/Procedures []PROCEDURE: PORTABLE CHEST 1V PORTABLE CHEST 1V History: ER PATIENT. SHORTNESS OF AIR. PRODUCTIVE COUGH WITH BROWN MUCOUS. PRIOR XRAY. . Comparison with 02/10/2018. Heart size remains mildly enlarged. Pulmonary vascularity demonstrates slightly greater congestion. No pneumothorax. No pleural effusion. Increased interstitial opacities in both lungs. IMPRESSION: Mild worsening of congestive changes and pulmonary edema. (VICTORINA GUO) Course & Med Decision Making Course & Med Decision Making Pertinent Labs and Imaging studies reviewed. (See chart for details) []Discussed lab and imaging findings with patient. Patient improved in the ED. States he did not take his Lasix today. Patient given 40 mg IV. Patient notes improvement after breathing treatment given in the ED. Oxygen saturation is 95% on 4 L of oxygen. No bilateral lower leg swelling. Discussed case with hospitalist, Dr. Rothman. Agrees to admission and further management patient. Patient stable for admission. (VICTORINA GUO) Dragon Disclaimer Dragon Disclaimer This electronic medical record was generated, in whole or in part, using a voice recognition dictation system. (VICTORINA GUO) Dragon Disclaimer The mid level provide has independently evaluated and treated the patient. I was available for consultation by the mid level provider. I agree with the care provided by the mid level provider. (MARYANA MUSA DO) Departure Departure Impression: Primary Impression: CHF exacerbation Additional Impression: Cough Disposition: ADMITTED INPATIENT Admitting Physician: Nereyda Rothman (VICTORINA GUO) Condition: STABLE Referrals: MOHINDER GO MD (PCP) Problem Qualifiers VICTORINA GUO June 22, 2018 17:08 MARYANA MUSA DO June 23, 2018 04:40
--- NOTE | 2018-06-22 17:47 | RAD ---
PORTABLE CHEST 1V History: ER PATIENT. SHORTNESS OF AIR. PRODUCTIVE COUGH WITH BROWN MUCOUS. PRIOR XRAY. . Comparison with 02/10/2018. Heart size remains mildly enlarged. Pulmonary vascularity demonstrates slightly greater congestion. No pneumothorax. No pleural effusion. Increased interstitial opacities in both lungs. IMPRESSION: Mild worsening of congestive changes and pulmonary edema. Electronically signed by: Meño Hartman MD (06/22/2018 5:44 PM) [facility]
[2018-06-22] MEDS ORDERED: FUROSEMIDE 40 MG/4 ML VIAL. IVP ONE (18:00)
[2018-06-22] MEDS ORDERED: fentaNYL PF VIAL 100 MCG/2 ML VIAL IV PRN (18:15)
[2018-06-22] MEDS ORDERED: ONDANSETRON PF 4 MG/2 ML VIAL. IV PRN (18:15)
[2018-06-22] MEDS ORDERED: ACETAMINOPHEN 325 MG TABLET. PO PRN (18:15)
[2018-06-22 18:55] LABS: BILIRUBIN,URINE NEGATIVE (NEG); CLARITY,URINE CLEAR; COLOR,URINE YELLOW; NITRITE,URINE NEGATIVE (NEG); PH,URINE 6.5; PROTEIN,URINE >=300 mg/dL (NEG-TRACE); UROBILINOGEN,URINE 0.2 mg/dL (0.2 mg/dL)
[2018-06-22 19:00] VITALS: BP 156/108
[2018-06-22 19:02] LABS: HYALINE CASTS, URINE MODERATE /HPF
[2018-06-22 19:03] LABS: BACTERIA,URINE 0 /HPF (0-FEW); WBC,URINE OCC /HPF (0-4)
--- NOTE | 2018-06-22 19:43 | PDOC1 ---
History and Physical Date of Admission: Date of Admission DATE: 06/22/18 TIME: 19:39 Chief Complaint: Problems: (1) STEMI (ST elevation myocardial infarction) (2) Methamphetamine abuse (3) Cough (4) CHF exacerbation Chief Complain: Shortness of breath cough History of Present Illness: HPI: Patient is a pleasant middle-aged -Citizen Of [place] male who does methamphetamine and I think other drugs He presented to ER with complaints of shortness of breath and cough Spell occurring for several weeks He admits to still doing drugs including methamphetamine with in the past week I've admitted him in the past for similar issues and told him to quit doing the drugs and he states he tried Rates his symptoms at 7 out of 10 When he hit the ER he was hypoxic into this 80s Describes her symptoms as agonizing He tried taking some home meds that and seemed to work Patient appears to have accommodation of heart failure and pneumonia and perhaps bronchitis I discussed case with ER physician we are going to admit the patient and consult pulmonary and cardiology giving IV antibiotics Past Medical/Surgical History: PMH/PSH: Drug abuse bronchitis Allergies: Allergies: Coded Allergies: No Known Drug Allergies (Unverified , 08/01/16) Family History: Family History: Hypertension Social History: Social Hisoty: He smokes methamphetamine drinks socially Current Medications: Current Medications Current Medications Albuterol/ Ipratropium (Duoneb) 3 ml 1X ONCE NEB Last administered on 06/22/18at 16:26; Start 06/22/18 at 16:15; Stop 06/22/18 at 16:20; Status DC Methylprednisolone Sodium Succinate (SOLU-Medrol 125MG VIAL) 125 mg 1X ONCE IV Last administered on 06/22/18at 16:56; Start 06/22/18 at 16:15; Stop 06/22/18 at 16:20; Status DC Furosemide (Lasix) 40 mg 1X ONCE IVP Last administered on 06/22/18at 17:53; Start 06/22/18 at 18:00; Stop 06/22/18 at 18:01; Status DC Ondansetron HCl (Zofran) 4 mg PRN Q8HRS PRN IV NAUSEA/VOMITING; Start 06/22/18 at 18:15; Stop 06/23/18 at 18:14 Fentanyl Citrate (Fentanyl 2ml Vial) 50 mcg PRN Q1HR PRN IV PAIN; Start 06/22/18 at 18:15; Stop 06/23/18 at 18:14 Acetaminophen (Tylenol) 650 mg PRN Q4HRS PRN PO FEVER; Start 06/22/18 at 18:15; Stop 06/23/18 at 18:14 Active Scripts Active Lasix (Furosemide) 40 Mg Tablet 1 Tab PO DAILY Thiamine Hcl 100 Mg/1 Ml Vial 100 Mg IM DAILY 30 Days Folic Acid 1 Mg Tablet 1 Mg PO DAILY 30 Days Lipitor (Atorvastatin Calcium) 20 Mg Tablet 20 Mg PO HS Aspir 81 (Aspirin) 81 Mg Tablet.dr 1 Tab PO DAILY Metoprolol Tartrate 25 Mg Tablet 1 Tab PO BID Lisinopril 10 Mg Tablet 1 Tab PO DAILY Reported Effient (Prasugrel Hcl) 10 Mg Tablet 1 Tab PO DAILY Paxil (Paroxetine Hcl) 40 Mg Tablet 40 Mg PO DAILY Atripla Tablet (Efavirenz/Emtricitab/Tenofovir) 1 Each Tablet 1 Each PO DAILY ROS: Review of Systems Review of System REVIEW OF SYSTEMS: GENERAL: Denies weakness SKIN: No bruising, hair changes or rashes. EYES: No blurred, double or loss of vision. NOSE AND THROAT: No history of nosebleeds, hoarseness or sore throat. HEART: No history of palpitations, chest pain or shortness of breath on exertion. LUNGS: He complains of shortness of breath and cough GASTROINTESTINAL: Denies changes in appetite, nausea, vomiting, diarrhea or constipation. GENITOURINARY: No history of frequency, urgency, hesitancy or nocturia. NEUROLOGIC: Denies history of numbness, tingling, tremor or weakness. PSYCHIATRIC: No history of panic, anxiety or depression. ENDOCRINE: No history of heat or cold intolerance, polyuria or polydipsia. EXTREMITIES: Denies muscle weakness, joint pain, pain on walking or stiffness. Physical Exam: Vital Signs: Vital Signs Date Time Temp Pulse Resp B/P (MAP) Pulse Ox O2 Delivery O2 Flow Rate FiO2 06/22/18 18:22 115 27 142/93 (109) 91 Nasal Cannula 4.0 06/22/18 16:26 99.6 99.6 Physcial Exam: GEN.: No apparent distress. Alert and oriented. HEENT: Head is normocephalic, atraumatic NECK: Supple, no JVD LUNGS: Clear to auscultation without rhonchi or wheezing HEART: RRR, S1, S2 present. Peripheral pulses intact ABDOMEN: Soft, nontender. Positive bowel sounds no organomegaly EXTREMITIES: Without any cyanosis, clubbing, or edema. Pedal pulses intact NEUROLOGIC: Normal speech, normal tone. A&O x 3 PSYCHIATRIC: Normal affect, normal mood. Stable SKIN: No ulcerations or rashes VASCULAR: Good capillary refill Labs: Labs: Laboratory Tests Test 06/22/18 16:20 06/22/18 18:45 White Blood Count 8.3 x10^3/uL (4.0-11.0) Red Blood Count 4.27 x10^6/uL (4.30-5.70) Hemoglobin 11.7 g/dL (13.0-17.5) Hematocrit 36.8 % (39.0-53.0) Mean Corpuscular Volume 86 fL (79-100) Mean Corpuscular Hemoglobin 27 pg (25-35) Mean Corpuscular Hemoglobin Concent 32 g/dL (31-37) Red Cell Distribution Width 19.8 % (11.5-14.5) Platelet Count 430 x10^3/uL (140-400) Neutrophils (%) (Auto) 69 % (31-73) Lymphocytes (%) (Auto) 24 % (24-48) Monocytes (%) (Auto) 4 % (0-9) Eosinophils (%) (Auto) 2 % (0-3) Basophils (%) (Auto) 1 % (0-3) Neutrophils # (Auto) 5.8 x10^3uL (1.8-7.7) Lymphocytes # (Auto) 2.0 x10^3/uL (1.0-4.8) Monocytes # (Auto) 0.3 x10^3/uL (0.0-1.1) Eosinophils # (Auto) 0.2 x10^3/uL (0.0-0.7) Basophils # (Auto) 0.1 x10^3/uL (0.0-0.2) Sodium Level 139 mmol/L (136-145) Potassium Level 3.7 mmol/L (3.5-5.1) Chloride Level 104 mmol/L (98-107) Carbon Dioxide Level 25 mmol/L (21-32) Anion Gap 10 (6-14) Blood Urea Nitrogen 15 mg/dL (8-26) Creatinine 1.7 mg/dL (0.7-1.3) Estimated GFR (Cockcroft-Gault) 54.9 BUN/Creatinine Ratio 9 (6-20) Glucose Level 111 mg/dL (70-99) Lactic Acid Level 1.7 mmol/L (0.4-2.0) Calcium Level 9.1 mg/dL (8.5-10.1) Total Bilirubin 0.4 mg/dL (0.2-1.0) Aspartate Amino Transf (AST/SGOT) 25 U/L (15-37) Alanine Aminotransferase (ALT/SGPT) 33 U/L (16-63) Alkaline Phosphatase 122 U/L (46-116) Troponin I Quantitative 0.050 ng/mL (0.000-0.055) JB-Mev-D-Type Natriuretic Peptide 33740 pg/mL (0-124) Total Protein 7.8 g/dL (6.4-8.2) Albumin 2.4 g/dL (3.4-5.0) Albumin/Globulin Ratio 0.4 (1.0-1.7) Urine Collection Type Unknown Urine Color Yellow Urine Clarity Clear Urine pH 6.5 Urine Specific [place] 1.010 Urine Protein >=300 mg/dL (NEG-TRACE) Urine Glucose (UA) Negative mg/dL (NEG) Urine Ketones (Stick) Negative mg/dL (NEG) Urine Blood Trace (NEG) Urine Nitrite Negative (NEG) Urine Bilirubin Negative (NEG) Urine Urobilinogen Dipstick 0.2 mg/dL (0.2 mg/dL) Urine Leukocyte Esterase Negative (NEG) Urine RBC 3-5 /HPF (0-2) Urine WBC Occ /HPF (0-4) Urine Bacteria 0 /HPF (0-FEW) Urine Hyaline Casts Moderate /HPF Urine Mucus Slight /LPF Laboratory Tests Test 06/22/18 16:20 06/22/18 18:45 White Blood Count 8.3 x10^3/uL (4.0-11.0) Red Blood Count 4.27 x10^6/uL (4.30-5.70) Hemoglobin 11.7 g/dL (13.0-17.5) Hematocrit 36.8 % (39.0-53.0) Mean Corpuscular Volume 86 fL (79-100) Mean Corpuscular Hemoglobin 27 pg (25-35) Mean Corpuscular Hemoglobin Concent 32 g/dL (31-37) Red Cell Distribution Width 19.8 % (11.5-14.5) Platelet Count 430 x10^3/uL (140-400) Neutrophils (%) (Auto) 69 % (31-73) Lymphocytes (%) (Auto) 24 % (24-48) Monocytes (%) (Auto) 4 % (0-9) Eosinophils (%) (Auto) 2 % (0-3) Basophils (%) (Auto) 1 % (0-3) Neutrophils # (Auto) 5.8 x10^3uL (1.8-7.7) Lymphocytes # (Auto) 2.0 x10^3/uL (1.0-4.8) Monocytes # (Auto) 0.3 x10^3/uL (0.0-1.1) Eosinophils # (Auto) 0.2 x10^3/uL (0.0-0.7) Basophils # (Auto) 0.1 x10^3/uL (0.0-0.2) Sodium Level 139 mmol/L (136-145) Potassium Level 3.7 mmol/L (3.5-5.1) Chloride Level 104 mmol/L (98-107) Carbon Dioxide Level 25 mmol/L (21-32) Anion Gap 10 (6-14) Blood Urea Nitrogen 15 mg/dL (8-26) Creatinine 1.7 mg/dL (0.7-1.3) Estimated GFR (Cockcroft-Gault) 54.9 BUN/Creatinine Ratio 9 (6-20) Glucose Level 111 mg/dL (70-99) Lactic Acid Level 1.7 mmol/L (0.4-2.0) Calcium Level 9.1 mg/dL (8.5-10.1) Total Bilirubin 0.4 mg/dL (0.2-1.0) Aspartate Amino Transf (AST/SGOT) 25 U/L (15-37) Alanine Aminotransferase (ALT/SGPT) 33 U/L (16-63) Alkaline Phosphatase 122 U/L (46-116) Troponin I Quantitative 0.050 ng/mL (0.000-0.055) QY-Xun-M-Type Natriuretic Peptide 14182 pg/mL (0-124) Total Protein 7.8 g/dL (6.4-8.2) Albumin 2.4 g/dL (3.4-5.0) Albumin/Globulin Ratio 0.4 (1.0-1.7) Urine Collection Type Unknown Urine Color Yellow Urine Clarity Clear Urine pH 6.5 Urine Specific [place] 1.010 Urine Protein >=300 mg/dL (NEG-TRACE) Urine Glucose (UA) Negative mg/dL (NEG) Urine Ketones (Stick) Negative mg/dL (NEG) Urine Blood Trace (NEG) Urine Nitrite Negative (NEG) Urine Bilirubin Negative (NEG) Urine Urobilinogen Dipstick 0.2 mg/dL (0.2 mg/dL) Urine Leukocyte Esterase Negative (NEG) Urine RBC 3-5 /HPF (0-2) Urine WBC Occ /HPF (0-4) Urine Bacteria 0 /HPF (0-FEW) Urine Hyaline Casts Moderate /HPF Urine Mucus Slight /LPF Images: Images Chest x-ray shows vascular congestion and/or pneumonia Assessment/Plan Assessment/Plan Drug abuse with secondary heart failure and or pneumonia and bronchitis and restrictive failure and hypoxia Plan Patient is being admitted Cardiac monitoring Consult cardiology and consult pulmonary IV antibiotics IV Lasix We'll consider IV steroids DVT prophylaxis Full code Home meds I told the patient to quit doing drugs and he agrees to Prognosis lolied JOSE A CHAMBERLAIN III DO June 22, 2018 19:43
[2018-06-22] MEDS ORDERED: IPRATRPIUM/ALBUTEROL 0.5/2.5MG 3 ML NEBU. NEB PRN (19:45)
[2018-06-22] MEDS ORDERED: ALBUTEROL SULFATE 2.5 MG/3 ML NEBU. NEB PRN (20:15)
--- NOTE | 2018-06-22 22:35 | NUR ---
Pt able to answer admission questions. Pt states with recent incarceration for 30 days and unable to take his entresto that has been prescribed. Pt also states he normally drinks pint vodka daily to help with depression. Pt states he has not had a drink in 2 days. Received ok orders for CIWA protocol and UDS. No further complaints at this time. Pt instructed to call for assistance or questions.
[2018-06-22] MEDS ORDERED: LORazepam 1 MG TABLET PO PRN (22:45)
[2018-06-22 22:57] VITALS: BP 135/80
[2018-06-23 02:45] LABS: BASO % 1 % (0-3); EOS % 0 % (0-3); HEMATOCRIT 35.9 % (39.0-53.0); HEMOGLOBIN 11.7 g/dL (13.0-17.5); LYMPH # 1.2 x10^3/uL (1.0-4.8); LYMPH % 15 % (24-48); MEAN CORPUSCULAR HEMOGLOBIN 28 pg (25-35); MEAN CORPUSCULAR HGB CONC 33 g/dL (31-37); MEAN CORPUSCULAR VOLUME 86 fL (79-100); MONO # 0.1 x10^3/uL (0.0-1.1); MONO % 2 % (0-9); NEUT # 7.1 x10^3uL (1.8-7.7); NEUT % 83 % (31-73); PLATELET COUNT 444 x10^3/uL (140-400); RED BLOOD COUNT 4.18 x10^6/uL (4.30-5.70); RED CELL DISTRIBUTION WIDTH 19.7 % (11.5-14.5); WHITE BLOOD COUNT 8.5 x10^3/uL (4.0-11.0)
[2018-06-23 03:33] VITALS: BP 153/112
[2018-06-23 03:36] LABS: ALBUMIN 2.2 g/dL (3.4-5.0); ALBUMIN/GLOBULIN RATIO 0.4 (1.0-1.7); CALCIUM 8.8 mg/dL (8.5-10.1); CREATININE 1.6 mg/dL (0.7-1.3); GFR 58.8; POTASSIUM 4.2 mmol/L (3.5-5.1); TOTAL BILIRUBIN 0.4 mg/dL (0.2-1.0); TOTAL PROTEIN 7.6 g/dL (6.4-8.2)
[2018-06-23] MEDS ORDERED: SACU1TAB PO (05:37)
[2018-06-23 07:00] VITALS: BP 144/114
--- NOTE | 2018-06-23 07:03 | EKG ---
[facility] [address] [place] [address] Test Date: 2018-06-22 Test Time: 16:16:11 Pat Name: ALLA JACK Department: Room: 648 1 Gender: M Postmaster: : 1980 Requested By: VICTORINA GUO Order Number: [id number] Reading MD: Jimmie Richey Measurements Intervals [place] Rate: 117 P: 35 [place]: 142 QRS: 64 QRSD: 92 T: 38 QT: 338 QTc: 476 Interpretive Statements SINUS TACHYCARDIA LEFT ATRIAL ABNORMALITY ST & T ABNORMALITY, CONSIDER RECENT HIGH LATERAL MYOCARDIAL OR PERICARDIAL DAMAGE ABNORMAL ECG Electronically Signed On 06-23-2018 10:13:00 CDT by Jimmie Richey
[2018-06-23] MEDS: IPRATRPIUM/ALBUTEROL 0.5/2.5MG 3 ML NEBU. NEB SCH ×4 (07:21→19:33)
--- NOTE | 2018-06-23 10:28 | PDOC2 ---
CARDIAC CONSULT DATE OF CONSULT Date of Consult DATE: 06/23/18 TIME: 0900 REASON FOR CONSULT Reason for Consult: CHF exacerbation REFERRING PHYSICIAN Referring Physician: Lashonda SOURCE Source: Chart review, Patient HISTORY OF PRESENT ILLNESS HISTORY OF PRESENT ILLNESS This is a pleasant 37 yo AA male admitted for complains of shortness of breath. Reports that in the last 3 days he has been more SOA than usual. Positive for PND, orthopnea but no fever or chills. Denies any palpitations, nausea or chest pain. About a month ago he was incarcerated and has missed some of his me dications and just got released recently and has not had most of his medications which he could not disclosed. It is unclear about his incarceration but he does have hx of meth uise and verbalized last use a month ago. He is known for CAD, cardiomyopathy and HIV infection. Presently he is tired and did not sleep well but not as SOA than before. PAST MEDICAL HISTORY Cardiovascular: CAD, CHF (ICM), HTN, LA, Hyperlipidemia, Valve insufficiency Pulmonary: Asthma Psych: Anxiety Musculoskeletal: Other (none) Rheumatologic: No pertinent hx Infectious disease: No pertinent hx, Other (HIV) ENT: No pertinent hx Renal/: No pertinent hx Endocrine: No pertinent hx Dermatology: No pertinent hx PAST SURGICAL HISTORY Past Surgical History: Other (PCI/stent to LAD) FAMILY HISTORY Family History: Coronary Artery Disease (mother) SOCIAL HISTORY Smoke: <1 pack per day ALCOHOL: none Drugs: Crystal meth Lives: with Family CURRENT MEDICATIONS CURRENT MEDICATIONS Current Medications Medications (Trade) Dose Ordered Sig/Wilbur Route PRN Reason Start Time Stop Time Status Last Admin Dose Admin Albuterol/ Ipratropium (Duoneb) 3 ml 1X ONCE NEB 06/22/18 16:15 06/22/18 16:20 DC 06/22/18 16:26 Methylprednisolone Sodium Succinate (SOLU-Medrol 125MG VIAL) 125 mg 1X ONCE IV 06/22/18 16:15 06/22/18 16:20 DC 06/22/18 16:56 Furosemide (Lasix) 40 mg 1X ONCE IVP 06/22/18 18:00 06/22/18 18:01 DC 06/22/18 17:53 Albuterol/ Ipratropium (Duoneb) 3 ml RTQID NEB 06/22/18 20:00 06/23/18 07:21 ALLERGIES ALLERGIES: Coded Allergies: No Known Drug Allergies (Unverified , 08/01/16) ROS Review of System 14 point ROS evaluated with pertinent positives noted per HPI PHYSICAL EXAM General: Alert, Oriented X3, Cooperative, No acute distress HEENT: Mucous membr. moist/pink Lungs: Clear to auscultation, Normal air movement Heart: Regular rate (SR), Other (4/6 systolic mrumur to apex) Abdomen: Soft Extremities: No cyanosis, Other (1+ bilateral LE pitting edema) Skin: No breakdown, No significant lesion Neuro: Normal speech, Sensation intact Psych/Mental Status: Mental status NL, Mood NL MUSCULOSKELETAL: Osteoarthritic changes both hands VITALS VITALS Vital Signs Date Time Temp Pulse Resp B/P (MAP) Pulse Ox O2 Delivery O2 Flow Rate FiO2 06/23/18 09:03 94 Nasal Cannula 4.0 06/23/18 07:00 97.5 105 18 144/114 (124) 97.5 LABS Lab: Laboratory Tests Test 06/22/18 16:20 06/22/18 18:45 06/23/18 02:00 White Blood Count 8.3 x10^3/uL (4.0-11.0) 8.5 x10^3/uL (4.0-11.0) Red Blood Count 4.27 x10^6/uL (4.30-5.70) 4.18 x10^6/uL (4.30-5.70) Hemoglobin 11.7 g/dL (13.0-17.5) 11.7 g/dL (13.0-17.5) Hematocrit 36.8 % (39.0-53.0) 35.9 % (39.0-53.0) Mean Corpuscular Volume 86 fL (79-100) 86 fL (79-100) Mean Corpuscular Hemoglobin 27 pg (25-35) 28 pg (25-35) Mean Corpuscular Hemoglobin Concent 32 g/dL (31-37) 33 g/dL (31-37) Red Cell Distribution Width 19.8 % (11.5-14.5) 19.7 % (11.5-14.5) Platelet Count 430 x10^3/uL (140-400) 444 x10^3/uL (140-400) Neutrophils (%) (Auto) 69 % (31-73) 83 % (31-73) Lymphocytes (%) (Auto) 24 % (24-48) 15 % (24-48) Monocytes (%) (Auto) 4 % (0-9) 2 % (0-9) Eosinophils (%) (Auto) 2 % (0-3) 0 % (0-3) Basophils (%) (Auto) 1 % (0-3) 1 % (0-3) Neutrophils # (Auto) 5.8 x10^3uL (1.8-7.7) 7.1 x10^3uL (1.8-7.7) Lymphocytes # (Auto) 2.0 x10^3/uL (1.0-4.8) 1.2 x10^3/uL (1.0-4.8) Monocytes # (Auto) 0.3 x10^3/uL (0.0-1.1) 0.1 x10^3/uL (0.0-1.1) Eosinophils # (Auto) 0.2 x10^3/uL (0.0-0.7) 0.0 x10^3/uL (0.0-0.7) Basophils # (Auto) 0.1 x10^3/uL (0.0-0.2) 0.0 x10^3/uL (0.0-0.2) Sodium Level 139 mmol/L (136-145) 137 mmol/L (136-145) Potassium Level 3.7 mmol/L (3.5-5.1) 4.2 mmol/L (3.5-5.1) Chloride Level 104 mmol/L (98-107) 103 mmol/L (98-107) Carbon Dioxide Level 25 mmol/L (21-32) 23 mmol/L (21-32) Anion Gap 10 (6-14) 11 (6-14) Blood Urea Nitrogen 15 mg/dL (8-26) 20 mg/dL (8-26) Creatinine 1.7 mg/dL (0.7-1.3) 1.6 mg/dL (0.7-1.3) Estimated GFR (Cockcroft-Gault) 54.9 58.8 BUN/Creatinine Ratio 9 (6-20) 13 (6-20) Glucose Level 111 mg/dL (70-99) 128 mg/dL (70-99) Lactic Acid Level 1.7 mmol/L (0.4-2.0) Calcium Level 9.1 mg/dL (8.5-10.1) 8.8 mg/dL (8.5-10.1) Total Bilirubin 0.4 mg/dL (0.2-1.0) 0.4 mg/dL (0.2-1.0) Aspartate Amino Transf (AST/SGOT) 25 U/L (15-37) 24 U/L (15-37) Alanine Aminotransferase (ALT/SGPT) 33 U/L (16-63) 29 U/L (16-63) Alkaline Phosphatase 122 U/L (46-116) 115 U/L (46-116) Troponin I Quantitative 0.050 ng/mL (0.000-0.055) 0.027 ng/mL (0.000-0.055) KU-Gcj-O-Type Natriuretic Peptide 47037 pg/mL (0-124) Total Protein 7.8 g/dL (6.4-8.2) 7.6 g/dL (6.4-8.2) Albumin 2.4 g/dL (3.4-5.0) 2.2 g/dL (3.4-5.0) Albumin/Globulin Ratio 0.4 (1.0-1.7) 0.4 (1.0-1.7) Urine Collection Type Unknown Urine Color Yellow Urine Clarity Clear Urine pH 6.5 Urine Specific Garvin 1.010 Urine Protein >=300 mg/dL (NEG-TRACE) Urine Glucose (UA) Negative mg/dL (NEG) Urine Ketones (Stick) Negative mg/dL (NEG) Urine Blood Trace (NEG) Urine Nitrite Negative (NEG) Urine Bilirubin Negative (NEG) Urine Urobilinogen Dipstick 0.2 mg/dL (0.2 mg/dL) Urine Leukocyte Esterase Negative (NEG) Urine RBC 3-5 /HPF (0-2) Urine WBC Occ /HPF (0-4) Urine Bacteria 0 /HPF (0-FEW) Urine Hyaline Casts Moderate /HPF Urine Mucus Slight /LPF ECHOCARDIOGRAM ECHOCARDIOGRAM <Conclusion> Left ventricle systolic function is severely impaired. The Ejection Fraction is 15-20%. There is severe global hypokinesis of the left ventricle. Doppler and Color-flow revealed moderate to severe mitral regurgitation. Doppler and Color Flow revealed mild tricuspid regurgitation. There is moderate pulmonary hypertension. The PA pressure was estimated at 55 mmHg. Doppler and Color Flow revealed mild to moderate pulmonic valvular regurgitation. DATE: 02/13/18 1018 HEART CATH HEART CATH Conclusion 1. Regadenoson cardioisotope stress test showed large infarct involving the mid to distal anterior wall and the entire apical wall with small amount of helen- infarct ischemia. 2. Severe hypokinesis of the distal anterior wall and akinetic apical wall with ejection fraction calculated at 34%. 3. Low to intermediate risk for cardiac events. DATE: 04/20/18 1329 ASSESSMENT/PLAN ASSESSMENT/PLAN 1. Acute on chronic systolic/diastolic CHF 2. ICM: last known EF at 34% 3. Mod to severe MR 4. HIV 5. HTN: initially labile controlled 6. CAD; LAD stent in 2017 7. HLP 8. Noncompliance: missed meds partly due to recent incarceration 9. Tobaccoism 10. Meth use: verbalized last use a kanwal ago 11. Suspect CKD3 Recommendations 1. Lasix therapy. 2. ASA 3. Restart home meds and secondary prevention measures. Discussed compliance 4. lipids and TTE and UDS 5. Smoking and meth cessation 6. AICD consideration as an outpt pending TTE and complaince CORTNEY [employer]KE [employer] June 23, 2018 10:28
--- NOTE | 2018-06-23 10:32 | CARD ---
MR#: [id number] Date of Study: 06/23/2018 Ordering Physician: CORTNEY LUKE, Referring Physician: JOSE A CHAMBERLAIN Tech: Edda Muhammad RDCS APPROVED REPORT EXAM: Two-dimensional and M-mode echocardiogram with Doppler and color Doppler. Other Information Quality : Good INDICATION Cardiomyopathy 2D DIMENSIONS RVDd3.3 (2.9-3.5cm)Left Atrium(2D)5.0 (1.6-4.0cm) IVSd1.0 (0.7-1.1cm)Aortic Root(2D)3.5 (2.0-3.7cm) LVDd6.5 (3.9-5.9cm)LVOT Diameter2.1 (1.8-2.4cm) PWd1.0 (0.7-1.1cm)LVDs5.2 (2.5-4.0cm) FS (%) 19.2 %SV83.3 ml Aortic Valve AoV Peak Juancho.110.0cm/sAoV VTI14.9cm AO Peak GR.4.8mmHgLVOT Peak Juancho.105.6cm/s LVOT VTI 14.19cmAO Mean GR.3mmHg PEBBLES (VMAX)3.40mq9XRZ (VTI)3.21cm2 Mitral Valve MV E Zwgdtftc984.5cm/sMV E Peak Gr.89mmHg MV DECEL [id number] MVA (PHT)6.53cm2 TDI E/Lateral E'36.7E/Medial E'28.6 Tricuspid Valve TR P. Efnrkndm765dx/sRAP [id number] TR Peak Gr.[id number] LEFT VENTRICLE The Left Ventricle is mild to moderately dilated. There is normal left ventricular wall thickness. Le ft ventricle systolic function is severely impaired. The Ejection Fraction is estimated at 20%. There is severe global hypokinesis of the left ventricle. RIGHT VENTRICLE The right ventricle is mildly dilated. Systolic function is mildly reduced. ATRIA The left atrium is moderately dilated. The right atrium is moderately dilated. The interatrial septum is intact with no evidence for an atrial septal defect or patent foramen ovale as noted on 2-D or Do ppler imaging. AORTIC VALVE The aortic valve is calcified but opens well. Doppler and Color Flow revealed trace aortic regurgitat ion. There is no significant aortic valvular stenosis. MITRAL VALVE The mitral valve is normal in structure and function. There is no evidence of mitral valve prolapse. There is no mitral valve stenosis. Doppler and Color-flow revealed moderately severe mitral regurgita tion. TRICUSPID VALVE The tricuspid valve is normal in structure and function. Doppler and Color Flow revealed moderate tri cuspid regurgitation. The PA pressure was estimated at 60 mmHg. There is no tricuspid valve stenosis. PULMONIC VALVE The pulmonary valve is normal in structure and function. Doppler and Color Flow revealed mild pulmoni c valvular regurgitation. There is no pulmonic valvular stenosis. GREAT VESSELS The aortic root is normal in size. The ascending aorta is mildly dilated at 3.5 cm. The IVC is dilate d and collapses <50% with inspiration. PERICARDIAL EFFUSION There is no evidence of significant pericardial effusion. Critical Notification Critical Value: No <Conclusion> The Left Ventricle is mild to moderately dilated. Left ventricle systolic function is severely impaired. The Ejection Fraction is estimated at 20%. There is severe global hypokinesis of the left ventricle. There is no significant aortic valvular stenosis. Doppler and Color Flow revealed trace aortic regurgitation. Doppler and Color-flow revealed moderately severe mitral regurgitation. Doppler and Color Flow revealed moderate tricuspid regurgitation. The PA pressure was estimated at 60 mmHg. Signed by : Jimmie Richey MD Electronically Approved : 06/23/2018 10:32:04
[2018-06-23 10:49] LABS: CHOLESTEROL/HDL RATIO 2.9
[2018-06-23 11:00] VITALS: BP 150/92
--- NOTE | 2018-06-23 11:45 | PDOC ---
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 History of Present Illness History of Present Illness Patient seen and examined Clinically he seems to be a little better He is going for an echocardiogram currently Discussed the case with his nurse Vitals Vitals Vital Signs Date Time Temp Pulse Resp B/P (MAP) Pulse Ox O2 Delivery O2 Flow Rate FiO2 06/23/18 09:03 94 Nasal Cannula 4.0 06/23/18 07:00 97.5 105 18 144/114 (124) 97.5 Physical Exam General: Alert, Oriented X3, Cooperative, No acute distress Heart: Regular rate (SR), Normal S1, Normal S2, Other (4/6 systolic mrumur to apex) Lungs: Clear Abdomen: Soft Extremities: No cyanosis, Other (1+ bilateral LE pitting edema) Skin: No breakdown, No significant lesion Labs LABS Laboratory Tests Test 06/22/18 16:20 06/22/18 18:45 06/23/18 02:00 White Blood Count 8.3 x10^3/uL (4.0-11.0) 8.5 x10^3/uL (4.0-11.0) Red Blood Count 4.27 x10^6/uL (4.30-5.70) 4.18 x10^6/uL (4.30-5.70) Hemoglobin 11.7 g/dL (13.0-17.5) 11.7 g/dL (13.0-17.5) Hematocrit 36.8 % (39.0-53.0) 35.9 % (39.0-53.0) Mean Corpuscular Volume 86 fL (79-100) 86 fL (79-100) Mean Corpuscular Hemoglobin 27 pg (25-35) 28 pg (25-35) Mean Corpuscular Hemoglobin Concent 32 g/dL (31-37) 33 g/dL (31-37) Red Cell Distribution Width 19.8 % (11.5-14.5) 19.7 % (11.5-14.5) Platelet Count 430 x10^3/uL (140-400) 444 x10^3/uL (140-400) Neutrophils (%) (Auto) 69 % (31-73) 83 % (31-73) Lymphocytes (%) (Auto) 24 % (24-48) 15 % (24-48) Monocytes (%) (Auto) 4 % (0-9) 2 % (0-9) Eosinophils (%) (Auto) 2 % (0-3) 0 % (0-3) Basophils (%) (Auto) 1 % (0-3) 1 % (0-3) Neutrophils # (Auto) 5.8 x10^3uL (1.8-7.7) 7.1 x10^3uL (1.8-7.7) Lymphocytes # (Auto) 2.0 x10^3/uL (1.0-4.8) 1.2 x10^3/uL (1.0-4.8) Monocytes # (Auto) 0.3 x10^3/uL (0.0-1.1) 0.1 x10^3/uL (0.0-1.1) Eosinophils # (Auto) 0.2 x10^3/uL (0.0-0.7) 0.0 x10^3/uL (0.0-0.7) Basophils # (Auto) 0.1 x10^3/uL (0.0-0.2) 0.0 x10^3/uL (0.0-0.2) Sodium Level 139 mmol/L (136-145) 137 mmol/L (136-145) Potassium Level 3.7 mmol/L (3.5-5.1) 4.2 mmol/L (3.5-5.1) Chloride Level 104 mmol/L (98-107) 103 mmol/L (98-107) Carbon Dioxide Level 25 mmol/L (21-32) 23 mmol/L (21-32) Anion Gap 10 (6-14) 11 (6-14) Blood Urea Nitrogen 15 mg/dL (8-26) 20 mg/dL (8-26) Creatinine 1.7 mg/dL (0.7-1.3) 1.6 mg/dL (0.7-1.3) Estimated GFR (Cockcroft-Gault) 54.9 58.8 BUN/Creatinine Ratio 9 (6-20) 13 (6-20) Glucose Level 111 mg/dL (70-99) 128 mg/dL (70-99) Lactic Acid Level 1.7 mmol/L (0.4-2.0) Calcium Level 9.1 mg/dL (8.5-10.1) 8.8 mg/dL (8.5-10.1) Total Bilirubin 0.4 mg/dL (0.2-1.0) 0.4 mg/dL (0.2-1.0) Aspartate Amino Transf (AST/SGOT) 25 U/L (15-37) 24 U/L (15-37) Alanine Aminotransferase (ALT/SGPT) 33 U/L (16-63) 29 U/L (16-63) Alkaline Phosphatase 122 U/L (46-116) 115 U/L (46-116) Troponin I Quantitative 0.050 ng/mL (0.000-0.055) 0.027 ng/mL (0.000-0.055) IB-Usx-V-Type Natriuretic Peptide 62233 pg/mL (0-124) Total Protein 7.8 g/dL (6.4-8.2) 7.6 g/dL (6.4-8.2) Albumin 2.4 g/dL (3.4-5.0) 2.2 g/dL (3.4-5.0) Albumin/Globulin Ratio 0.4 (1.0-1.7) 0.4 (1.0-1.7) Urine Collection Type Unknown Urine Color Yellow Urine Clarity Clear Urine pH 6.5 Urine Specific [place] 1.010 Urine Protein >=300 mg/dL (NEG-TRACE) Urine Glucose (UA) Negative mg/dL (NEG) Urine Ketones (Stick) Negative mg/dL (NEG) Urine Blood Trace (NEG) Urine Nitrite Negative (NEG) Urine Bilirubin Negative (NEG) Urine Urobilinogen Dipstick 0.2 mg/dL (0.2 mg/dL) Urine Leukocyte Esterase Negative (NEG) Urine RBC 3-5 /HPF (0-2) Urine WBC Occ /HPF (0-4) Urine Bacteria 0 /HPF (0-FEW) Urine Hyaline Casts Moderate /HPF Urine Mucus Slight /LPF Triglycerides Level 67 mg/dL (0-150) Cholesterol Level 132 mg/dL (0-200) LDL Cholesterol, Calculated 74 mg/dL (0-100) VLDL Cholesterol, Calculated 13 mg/dL (0-40) Non-HDL Cholesterol Calculated 87 mg/dL (0-129) HDL Cholesterol 45 mg/dL (40-60) Cholesterol/HDL Ratio 2.9 Review of Systems Review of Systems He complains of depression and weakness Assessment and Plan Assessmemt and Plan Problems Medical Problems: (1) CHF exacerbation Status: Acute (2) Cough Status: Acute Assessment/Plan 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 Labs Laboratory Tests Test 06/22/18 16:20 06/22/18 18:45 06/23/18 02:00 White Blood Count 8.3 x10^3/uL (4.0-11.0) 8.5 x10^3/uL (4.0-11.0) Red Blood Count 4.27 x10^6/uL (4.30-5.70) 4.18 x10^6/uL (4.30-5.70) Hemoglobin 11.7 g/dL (13.0-17.5) 11.7 g/dL (13.0-17.5) Hematocrit 36.8 % (39.0-53.0) 35.9 % (39.0-53.0) Mean Corpuscular Volume 86 fL (79-100) 86 fL (79-100) Mean Corpuscular Hemoglobin 27 pg (25-35) 28 pg (25-35) Mean Corpuscular Hemoglobin Concent 32 g/dL (31-37) 33 g/dL (31-37) Red Cell Distribution Width 19.8 % (11.5-14.5) 19.7 % (11.5-14.5) Platelet Count 430 x10^3/uL (140-400) 444 x10^3/uL (140-400) Neutrophils (%) (Auto) 69 % (31-73) 83 % (31-73) Lymphocytes (%) (Auto) 24 % (24-48) 15 % (24-48) Monocytes (%) (Auto) 4 % (0-9) 2 % (0-9) Eosinophils (%) (Auto) 2 % (0-3) 0 % (0-3) Basophils (%) (Auto) 1 % (0-3) 1 % (0-3) Neutrophils # (Auto) 5.8 x10^3uL (1.8-7.7) 7.1 x10^3uL (1.8-7.7) Lymphocytes # (Auto) 2.0 x10^3/uL (1.0-4.8) 1.2 x10^3/uL (1.0-4.8) Monocytes # (Auto) 0.3 x10^3/uL (0.0-1.1) 0.1 x10^3/uL (0.0-1.1) Eosinophils # (Auto) 0.2 x10^3/uL (0.0-0.7) 0.0 x10^3/uL (0.0-0.7) Basophils # (Auto) 0.1 x10^3/uL (0.0-0.2) 0.0 x10^3/uL (0.0-0.2) Sodium Level 139 mmol/L (136-145) 137 mmol/L (136-145) Potassium Level 3.7 mmol/L (3.5-5.1) 4.2 mmol/L (3.5-5.1) Chloride Level 104 mmol/L (98-107) 103 mmol/L (98-107) Carbon Dioxide Level 25 mmol/L (21-32) 23 mmol/L (21-32) Anion Gap 10 (6-14) 11 (6-14) Blood Urea Nitrogen 15 mg/dL (8-26) 20 mg/dL (8-26) Creatinine 1.7 mg/dL (0.7-1.3) 1.6 mg/dL (0.7-1.3) Estimated GFR (Cockcroft-Gault) 54.9 58.8 BUN/Creatinine Ratio 9 (6-20) 13 (6-20) Glucose Level 111 mg/dL (70-99) 128 mg/dL (70-99) Lactic Acid Level 1.7 mmol/L (0.4-2.0) Calcium Level 9.1 mg/dL (8.5-10.1) 8.8 mg/dL (8.5-10.1) Total Bilirubin 0.4 mg/dL (0.2-1.0) 0.4 mg/dL (0.2-1.0) Aspartate Amino Transf (AST/SGOT) 25 U/L (15-37) 24 U/L (15-37) Alanine Aminotransferase (ALT/SGPT) 33 U/L (16-63) 29 U/L (16-63) Alkaline Phosphatase 122 U/L (46-116) 115 U/L (46-116) Troponin I Quantitative 0.050 ng/mL (0.000-0.055) 0.027 ng/mL (0.000-0.055) VZ-Qmf-J-Type Natriuretic Peptide 28656 pg/mL (0-124) Total Protein 7.8 g/dL (6.4-8.2) 7.6 g/dL (6.4-8.2) Albumin 2.4 g/dL (3.4-5.0) 2.2 g/dL (3.4-5.0) Albumin/Globulin Ratio 0.4 (1.0-1.7) 0.4 (1.0-1.7) Urine Collection Type Unknown Urine Color Yellow Urine Clarity Clear Urine pH 6.5 Urine Specific [place] 1.010 Urine Protein >=300 mg/dL (NEG-TRACE) Urine Glucose (UA) Negative mg/dL (NEG) Urine Ketones (Stick) Negative mg/dL (NEG) Urine Blood Trace (NEG) Urine Nitrite Negative (NEG) Urine Bilirubin Negative (NEG) Urine Urobilinogen Dipstick 0.2 mg/dL (0.2 mg/dL) Urine Leukocyte Esterase Negative (NEG) Urine RBC 3-5 /HPF (0-2) Urine WBC Occ /HPF (0-4) Urine Bacteria 0 /HPF (0-FEW) Urine Hyaline Casts Moderate /HPF Urine Mucus Slight /LPF Triglycerides Level 67 mg/dL (0-150) Cholesterol Level 132 mg/dL (0-200) LDL Cholesterol, Calculated 74 mg/dL (0-100) VLDL Cholesterol, Calculated 13 mg/dL (0-40) Non-HDL Cholesterol Calculated 87 mg/dL (0-129) HDL Cholesterol 45 mg/dL (40-60) Cholesterol/HDL Ratio 2.9 Laboratory Tests Test 06/22/18 16:20 06/22/18 18:45 06/23/18 02:00 White Blood Count 8.3 x10^3/uL (4.0-11.0) 8.5 x10^3/uL (4.0-11.0) Red Blood Count 4.27 x10^6/uL (4.30-5.70) 4.18 x10^6/uL (4.30-5.70) Hemoglobin 11.7 g/dL (13.0-17.5) 11.7 g/dL (13.0-17.5) Hematocrit 36.8 % (39.0-53.0) 35.9 % (39.0-53.0) Mean Corpuscular Volume 86 fL (79-100) 86 fL (79-100) Mean Corpuscular Hemoglobin 27 pg (25-35) 28 pg (25-35) Mean Corpuscular Hemoglobin Concent 32 g/dL (31-37) 33 g/dL (31-37) Red Cell Distribution Width 19.8 % (11.5-14.5) 19.7 % (11.5-14.5) Platelet Count 430 x10^3/uL (140-400) 444 x10^3/uL (140-400) Neutrophils (%) (Auto) 69 % (31-73) 83 % (31-73) Lymphocytes (%) (Auto) 24 % (24-48) 15 % (24-48) Monocytes (%) (Auto) 4 % (0-9) 2 % (0-9) Eosinophils (%) (Auto) 2 % (0-3) 0 % (0-3) Basophils (%) (Auto) 1 % (0-3) 1 % (0-3) Neutrophils # (Auto) 5.8 x10^3uL (1.8-7.7) 7.1 x10^3uL (1.8-7.7) Lymphocytes # (Auto) 2.0 x10^3/uL (1.0-4.8) 1.2 x10^3/uL (1.0-4.8) Monocytes # (Auto) 0.3 x10^3/uL (0.0-1.1) 0.1 x10^3/uL (0.0-1.1) Eosinophils # (Auto) 0.2 x10^3/uL (0.0-0.7) 0.0 x10^3/uL (0.0-0.7) Basophils # (Auto) 0.1 x10^3/uL (0.0-0.2) 0.0 x10^3/uL (0.0-0.2) Sodium Level 139 mmol/L (136-145) 137 mmol/L (136-145) Potassium Level 3.7 mmol/L (3.5-5.1) 4.2 mmol/L (3.5-5.1) Chloride Level 104 mmol/L (98-107) 103 mmol/L (98-107) Carbon Dioxide Level 25 mmol/L (21-32) 23 mmol/L (21-32) Anion Gap 10 (6-14) 11 (6-14) Blood Urea Nitrogen 15 mg/dL (8-26) 20 mg/dL (8-26) Creatinine 1.7 mg/dL (0.7-1.3) 1.6 mg/dL (0.7-1.3) Estimated GFR (Cockcroft-Gault) 54.9 58.8 BUN/Creatinine Ratio 9 (6-20) 13 (6-20) Glucose Level 111 mg/dL (70-99) 128 mg/dL (70-99) Lactic Acid Level 1.7 mmol/L (0.4-2.0) Calcium Level 9.1 mg/dL (8.5-10.1) 8.8 mg/dL (8.5-10.1) Total Bilirubin 0.4 mg/dL (0.2-1.0) 0.4 mg/dL (0.2-1.0) Aspartate Amino Transf (AST/SGOT) 25 U/L (15-37) 24 U/L (15-37) Alanine Aminotransferase (ALT/SGPT) 33 U/L (16-63) 29 U/L (16-63) Alkaline Phosphatase 122 U/L (46-116) 115 U/L (46-116) Troponin I Quantitative 0.050 ng/mL (0.000-0.055) 0.027 ng/mL (0.000-0.055) VT-Sif-Z-Type Natriuretic Peptide 15618 pg/mL (0-124) Total Protein 7.8 g/dL (6.4-8.2) 7.6 g/dL (6.4-8.2) Albumin 2.4 g/dL (3.4-5.0) 2.2 g/dL (3.4-5.0) Albumin/Globulin Ratio 0.4 (1.0-1.7) 0.4 (1.0-1.7) Urine Collection Type Unknown Urine Color Yellow Urine Clarity Clear Urine pH 6.5 Urine Specific [place] 1.010 Urine Protein >=300 mg/dL (NEG-TRACE) Urine Glucose (UA) Negative mg/dL (NEG) Urine Ketones (Stick) Negative mg/dL (NEG) Urine Blood Trace (NEG) Urine Nitrite Negative (NEG) Urine Bilirubin Negative (NEG) Urine Urobilinogen Dipstick 0.2 mg/dL (0.2 mg/dL) Urine Leukocyte Esterase Negative (NEG) Urine RBC 3-5 /HPF (0-2) Urine WBC Occ /HPF (0-4) Urine Bacteria 0 /HPF (0-FEW) Urine Hyaline Casts Moderate /HPF Urine Mucus Slight /LPF Triglycerides Level 67 mg/dL (0-150) Cholesterol Level 132 mg/dL (0-200) LDL Cholesterol, Calculated 74 mg/dL (0-100) VLDL Cholesterol, Calculated 13 mg/dL (0-40) Non-HDL Cholesterol Calculated 87 mg/dL (0-129) HDL Cholesterol 45 mg/dL (40-60) Cholesterol/HDL Ratio 2.9 Medications Current Medications Albuterol/ Ipratropium (Duoneb) 3 ml 1X ONCE NEB Last administered on 06/22/18at 16:26; Start 06/22/18 at 16:15; Stop 06/22/18 at 16:20; Status DC Methylprednisolone Sodium Succinate (SOLU-Medrol 125MG VIAL) 125 mg 1X ONCE IV Last administered on 06/22/18at 16:56; Start 06/22/18 at 16:15; Stop 06/22/18 at 16:20; Status DC Furosemide (Lasix) 40 mg 1X ONCE IVP Last administered on 06/22/18at 17:53; Start 06/22/18 at 18:00; Stop 06/22/18 at 18:01; Status DC Ondansetron HCl (Zofran) 4 mg PRN Q8HRS PRN IV NAUSEA/VOMITING; Start 06/22/18 at 18:15; Stop 06/23/18 at 18:14 Fentanyl Citrate (Fentanyl 2ml Vial) 50 mcg PRN Q1HR PRN IV PAIN; Start 06/22/18 at 18:15; Stop 06/23/18 at 18:14 Acetaminophen (Tylenol) 650 mg PRN Q4HRS PRN PO FEVER; Start 06/22/18 at 18:15; Stop 06/23/18 at 18:14 Albuterol/ Ipratropium (Duoneb) 3 ml RTQID NEB Last administered on 06/23/18at 07:21; Start 06/22/18 at 20:00 Albuterol/ Ipratropium (Duoneb) 3 ml PRN Q2HR PRN NEB SHORTNESS OF BREATH; Start 06/22/18 at 19:45; Stop 06/22/18 at 20:08; Status DC Albuterol Sulfate (Ventolin Neb Soln) 2.5 mg PRN Q2HRS PRN NEB SHORTNESS OF BREATH; Start 06/22/18 at 20:15 Lorazepam (Ativan) 4 mg PRN Q1HR PRN PO For CIWA 8-14; Start 06/22/18 at 22:45 Lorazepam (Ativan) 2 mg PRN Q1HR PRN IV For CIWA 8-14; Start 06/22/18 at 22:45 Lorazepam (Ativan) 4 mg PRN Q1HR PRN IV For CIWA 15 or greater; Start 06/22/18 at 22:45 Furosemide (Lasix) 40 mg DAILY IVP ; Start 06/23/18 at 11:00 Aspirin (Ecotrin) 81 mg DAILYWBKFT PO ; Start 06/23/18 at 11:00 Carvedilol (Coreg) 6.25 mg BIDWMEALS PO ; Start 06/23/18 at 11:00 Losartan Potassium (Cozaar) 25 mg DAILY PO ; Start 06/23/18 at 11:00 Atorvastatin Calcium (Lipitor) 20 mg QHS PO ; Start 06/23/18 at 21:00 Active Scripts Active Lasix (Furosemide) 40 Mg Tablet 1 Tab PO DAILY Thiamine Hcl 100 Mg/1 Ml Vial 100 Mg IM DAILY 30 Days Folic Acid 1 Mg Tablet 1 Mg PO DAILY 30 Days Lipitor (Atorvastatin Calcium) 20 Mg Tablet 20 Mg PO HS Aspir 81 (Aspirin) 81 Mg Tablet.dr 1 Tab PO DAILY Metoprolol Tartrate 25 Mg Tablet 1 Tab PO BID Lisinopril 10 Mg Tablet 1 Tab PO DAILY Reported Entresto 24 mg-26 mg Tablet (Sacubitril/Valsartan) 1 Each Tablet 1 Each PO DAILY Effient (Prasugrel Hcl) 10 Mg Tablet 1 Tab PO DAILY Paxil (Paroxetine Hcl) 40 Mg Tablet 40 Mg PO DAILY Atripla Tablet (Efavirenz/Emtricitab/Tenofovir) 1 Each Tablet 1 Each PO DAILY Vitals/I & O Vital Sign - Last 24 Hours 06/22/18 06/22/18 06/22/18 06/22/18 16:26 16:27 17:21 18:22 Temp 99.6 99.6 Pulse 118 118 115 Resp 38 21 27 B/P (MAP) 164/114 (131) 160/11 (60) 142/93 (109) Pulse Ox 94 92 93 91 O2 Delivery Nasal Cannula Nasal Cannula Nasal Cannula Nasal Cannula O2 Flow Rate 4.0 4.0 4.0 4.0 06/22/18 06/22/18 06/22/18 06/23/18 19:00 19:00 22:57 03:33 Temp 98.2 98.4 98.3 98.2 98.4 98.3 Pulse 114 109 106 Resp 20 18 20 B/P (MAP) 156/108 (124) 135/80 (98) 153/112 (126) Pulse Ox 94 96 94 O2 Delivery Nasal Cannula Nasal Cannula Nasal Cannula Nasal Cannula O2 Flow Rate 4.0 4.0 4.0 4.0 06/23/18 06/23/18 06/23/18 07:00 08:00 09:03 Temp 97.5 97.5 Pulse 105 Resp 18 B/P (MAP) 144/114 (124) Pulse Ox 92 94 O2 Delivery Nasal Cannula Nasal Cannula Nasal Cannula O2 Flow Rate 4.0 4.0 4.0 Intake and Output 06/22/18 06/22/18 06/23/18 15:00 23:00 07:00 Intake Total 800 ml 100 ml Balance 800 ml 100 ml CASTLE,NIAL K III DO June 23, 2018 11:45
[2018-06-23] MEDS: CARVEDILOL 6.25 MG TABLET. PO SCH ×2 (11:47→17:40)
[2018-06-23] MEDS: ASPIRIN ENTERIC COATED 81 MG TABLET.DR. PO SCH (11:50)
[2018-06-23] MEDS: FUROSEMIDE 40 MG/4 ML VIAL. IVP SCH (11:51)
[2018-06-23] MEDS: LOSARTAN POTASSIUM 25 MG TABLET. PO SCH (11:51)
[2018-06-23 13:06] LABS: BARBITURATES NEG (NEG); BENZODIAZEPINES NEG (NEG); CANNABINOIDS NEG (NEG); COCAINE NEG (NEG); METHADONE NEG (NEG); OPIATES POS (NEG); PHENCYCLIDINE NEG (NEG)
[2018-06-23 13:08] LABS: AMPHETAMINE/METHAMPHETAMINE NEG (NEG)
[2018-06-23 15:00] VITALS: BP 113/80
[2018-06-23 19:00] VITALS: BP 115/82
[2018-06-23] MEDS: ATORVASTATIN CALCIUM 20 MG TABLET PO SCH (21:12)
[2018-06-23 23:00] VITALS: BP 106/66
[2018-06-24] MEDS: BENZONATATE 100 MG CAPSULE. PO PRN ×2 (01:02→08:52)
[2018-06-24 03:29] VITALS: BP 158/61
[2018-06-24 07:00] VITALS: BP 113/80
[2018-06-24] MEDS: IPRATRPIUM/ALBUTEROL 0.5/2.5MG 3 ML NEBU. NEB SCH ×4 (07:10→20:00)
[2018-06-24] MEDS: LOSARTAN POTASSIUM 25 MG TABLET. PO SCH (08:51)
[2018-06-24] MEDS: ASPIRIN ENTERIC COATED 81 MG TABLET.DR. PO SCH (08:51)
[2018-06-24] MEDS: CARVEDILOL 6.25 MG TABLET. PO SCH ×2 (08:51→16:59)
[2018-06-24] MEDS: FUROSEMIDE 40 MG/4 ML VIAL. IVP SCH (08:52)
[2018-06-24 10:53] VITALS: BP 122/95
--- NOTE | 2018-06-24 11:21 | NUR ---
SW following pt for anticipated dc needs. Chart reviewed. Pt lives at home. No dc recommendation noted at this time.
--- NOTE | 2018-06-24 14:05 | PDOC ---
PROGRESS NOTES Subjective Subjective Patient seen and examined He looks and feels better today. Objective Objective Vital Signs Date Time Temp Pulse Resp B/P (MAP) Pulse Ox O2 Delivery O2 Flow Rate FiO2 06/24/18 11:18 98 Room Air 06/24/18 10:53 97.7 96 20 122/95 (104) 97.7 06/24/18 03:29 4.0 Intake and Output 06/24/18 07:00 Intake Total 800 ml Output Total 1900 ml Balance -1100 ml Intake Oral 800 ml Output Urine Total 1900 ml # Voids 3 Physical Exam Abdomen: Normal bowel sounds Heart: Regular rate General: mild distress Lungs: Other (decreased breath sounds) Assessment Assessment Problems Medical Problems: (1) CHF exacerbation Status: Acute (2) Cough Status: Acute 1. Acute on chronic systolic CHF. Echocardiogram with an ejection fraction of 20%, moderately severe mitral regurgitation and a pulmonary artery pressure at 60 mmHg. Clinically the patient has improved. He is on Coreg and losartan and will continue these medications. His treatment course has been complicated by issues of compliance. In follow-up in the office we'll again attempt a trial of Entresto. We'll increase activity today. Recheck lab in the morning. Hopefully home in one to 2 days with office follow-up. 2. HIV 5. HTN: Improved. Continue medications as above. 6. CAD; LAD stent in 2017. No chest pain. 7. HLP. On statins. 8. Noncompliance: missed meds partly due to recent incarceration 9. Tobaccoism 10. 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 Suspect CKD3. Check morning lab. Comment Review of Relevant I have reviewed the following items nicolas (where applicable) has been applied. Labs Laboratory Tests Test 06/22/18 16:20 06/22/18 18:45 06/23/18 02:00 06/23/18 12:30 White Blood Count 8.3 x10^3/uL (4.0-11.0) 8.5 x10^3/uL (4.0-11.0) Red Blood Count 4.27 x10^6/uL (4.30-5.70) 4.18 x10^6/uL (4.30-5.70) Hemoglobin 11.7 g/dL (13.0-17.5) 11.7 g/dL (13.0-17.5) Hematocrit 36.8 % (39.0-53.0) 35.9 % (39.0-53.0) Mean Corpuscular Volume 86 fL (79-100) 86 fL (79-100) Mean Corpuscular Hemoglobin 27 pg (25-35) 28 pg (25-35) Mean Corpuscular Hemoglobin Concent 32 g/dL (31-37) 33 g/dL (31-37) Red Cell Distribution Width 19.8 % (11.5-14.5) 19.7 % (11.5-14.5) Platelet Count 430 x10^3/uL (140-400) 444 x10^3/uL (140-400) Neutrophils (%) (Auto) 69 % (31-73) 83 % (31-73) Lymphocytes (%) (Auto) 24 % (24-48) 15 % (24-48) Monocytes (%) (Auto) 4 % (0-9) 2 % (0-9) Eosinophils (%) (Auto) 2 % (0-3) 0 % (0-3) Basophils (%) (Auto) 1 % (0-3) 1 % (0-3) Neutrophils # (Auto) 5.8 x10^3uL (1.8-7.7) 7.1 x10^3uL (1.8-7.7) Lymphocytes # (Auto) 2.0 x10^3/uL (1.0-4.8) 1.2 x10^3/uL (1.0-4.8) Monocytes # (Auto) 0.3 x10^3/uL (0.0-1.1) 0.1 x10^3/uL (0.0-1.1) Eosinophils # (Auto) 0.2 x10^3/uL (0.0-0.7) 0.0 x10^3/uL (0.0-0.7) Basophils # (Auto) 0.1 x10^3/uL (0.0-0.2) 0.0 x10^3/uL (0.0-0.2) Sodium Level 139 mmol/L (136-145) 137 mmol/L (136-145) Potassium Level 3.7 mmol/L (3.5-5.1) 4.2 mmol/L (3.5-5.1) Chloride Level 104 mmol/L (98-107) 103 mmol/L (98-107) Carbon Dioxide Level 25 mmol/L (21-32) 23 mmol/L (21-32) Anion Gap 10 (6-14) 11 (6-14) Blood Urea Nitrogen 15 mg/dL (8-26) 20 mg/dL (8-26) Creatinine 1.7 mg/dL (0.7-1.3) 1.6 mg/dL (0.7-1.3) Estimated GFR (Cockcroft-Gault) 54.9 58.8 BUN/Creatinine Ratio 9 (6-20) 13 (6-20) Glucose Level 111 mg/dL (70-99) 128 mg/dL (70-99) Lactic Acid Level 1.7 mmol/L (0.4-2.0) Calcium Level 9.1 mg/dL (8.5-10.1) 8.8 mg/dL (8.5-10.1) Total Bilirubin 0.4 mg/dL (0.2-1.0) 0.4 mg/dL (0.2-1.0) Aspartate Amino Transf (AST/SGOT) 25 U/L (15-37) 24 U/L (15-37) Alanine Aminotransferase (ALT/SGPT) 33 U/L (16-63) 29 U/L (16-63) Alkaline Phosphatase 122 U/L (46-116) 115 U/L (46-116) Troponin I Quantitative 0.050 ng/mL (0.000-0.055) 0.027 ng/mL (0.000-0.055) HK-Zqd-V-Type Natriuretic Peptide 93443 pg/mL (0-124) Total Protein 7.8 g/dL (6.4-8.2) 7.6 g/dL (6.4-8.2) Albumin 2.4 g/dL (3.4-5.0) 2.2 g/dL (3.4-5.0) Albumin/Globulin Ratio 0.4 (1.0-1.7) 0.4 (1.0-1.7) Urine Collection Type Unknown Urine Color Yellow Urine Clarity Clear Urine pH 6.5 Urine Specific [place] 1.010 Urine Protein >=300 mg/dL (NEG-TRACE) Urine Glucose (UA) Negative mg/dL (NEG) Urine Ketones (Stick) Negative mg/dL (NEG) Urine Blood Trace (NEG) Urine Nitrite Negative (NEG) Urine Bilirubin Negative (NEG) Urine Urobilinogen Dipstick 0.2 mg/dL (0.2 mg/dL) Urine Leukocyte Esterase Negative (NEG) Urine RBC 3-5 /HPF (0-2) Urine WBC Occ /HPF (0-4) Urine Bacteria 0 /HPF (0-FEW) Urine Hyaline Casts Moderate /HPF Urine Mucus Slight /LPF Triglycerides Level 67 mg/dL (0-150) Cholesterol Level 132 mg/dL (0-200) LDL Cholesterol, Calculated 74 mg/dL (0-100) VLDL Cholesterol, Calculated 13 mg/dL (0-40) Non-HDL Cholesterol Calculated 87 mg/dL (0-129) HDL Cholesterol 45 mg/dL (40-60) Cholesterol/HDL Ratio 2.9 Urine Opiates Screen Pos (NEG) Urine Methadone Screen Neg (NEG) Urine Barbiturates Neg (NEG) Urine Phencyclidine Screen Neg (NEG) Urine Amphetamine/Methamphetamine Neg (NEG) Urine Benzodiazepines Screen Neg (NEG) Urine Cocaine Screen Neg (NEG) Urine Cannabinoids Screen Neg (NEG) Urine Ethyl Alcohol Neg (NEG) Microbiology 06/22/18 Blood Culture - Preliminary, Resulted NO GROWTH AFTER 1 DAY Medications Current Medications Albuterol/ Ipratropium (Duoneb) 3 ml 1X ONCE NEB Last administered on 06/22/18at 16:26; Start 06/22/18 at 16:15; Stop 06/22/18 at 16:20; Status DC Methylprednisolone Sodium Succinate (SOLU-Medrol 125MG VIAL) 125 mg 1X ONCE IV Last administered on 06/22/18at 16:56; Start 06/22/18 at 16:15; Stop 06/22/18 at 16:20; Status DC Furosemide (Lasix) 40 mg 1X ONCE IVP Last administered on 06/22/18at 17:53; Start 06/22/18 at 18:00; Stop 06/22/18 at 18:01; Status DC Ondansetron HCl (Zofran) 4 mg PRN Q8HRS PRN IV NAUSEA/VOMITING; Start 06/22/18 at 18:15; Stop 06/23/18 at 18:14; Status DC Fentanyl Citrate (Fentanyl 2ml Vial) 50 mcg PRN Q1HR PRN IV PAIN; Start 06/22/18 at 18:15; Stop 06/23/18 at 18:14; Status DC Acetaminophen (Tylenol) 650 mg PRN Q4HRS PRN PO FEVER; Start 06/22/18 at 18:15; Stop 06/23/18 at 18:14; Status DC Albuterol/ Ipratropium (Duoneb) 3 ml RTQID NEB Last administered on 06/24/18at 11:17; Start 06/22/18 at 20:00 Albuterol/ Ipratropium (Duoneb) 3 ml PRN Q2HR PRN NEB SHORTNESS OF BREATH; Start 06/22/18 at 19:45; Stop 06/22/18 at 20:08; Status DC Albuterol Sulfate (Ventolin Neb Soln) 2.5 mg PRN Q2HRS PRN NEB SHORTNESS OF BREATH; Start 06/22/18 at 20:15 Lorazepam (Ativan) 4 mg PRN Q1HR PRN PO For CIWA 8-14; Start 06/22/18 at 22:45 Lorazepam (Ativan) 2 mg PRN Q1HR PRN IV For CIWA 8-14; Start 06/22/18 at 22:45 Lorazepam (Ativan) 4 mg PRN Q1HR PRN IV For CIWA 15 or greater; Start 06/22/18 at 22:45 Furosemide (Lasix) 40 mg DAILY IVP Last administered on 06/24/18 08:52; Start 06/23/18 at 11:00 Aspirin (Ecotrin) 81 mg [id number] PO Last administered on 06/24/18 08:51; Start 06/23/18 at 11:00 Carvedilol (Coreg) 6.25 mg BIDWMEALS PO Last administered on 06/24/18 08:51; Start 06/23/18 at 11:00 Losartan Potassium (Cozaar) 25 mg DAILY PO Last administered on 06/24/18 08:51; Start 06/23/18 at 11:00 Atorvastatin Calcium (Lipitor) 20 mg QHS PO Last administered on 06/23/18at 21:12; Start 06/23/18 at 21:00 Benzonatate (Tessalon Perle) 200 mg PRN TID PRN PO cough 0900 1400 2100 Last administered on 06/24/18at 08:52; Start 06/24/18 at 00:45 Active Scripts Active Lasix (Furosemide) 40 Mg Tablet 1 Tab PO DAILY Thiamine Hcl 100 Mg/1 Ml Vial 100 Mg IM DAILY 30 Days Folic Acid 1 Mg Tablet 1 Mg PO DAILY 30 Days Lipitor (Atorvastatin Calcium) 20 Mg Tablet 20 Mg PO HS Aspir 81 (Aspirin) 81 Mg Tablet.dr 1 Tab PO DAILY Metoprolol Tartrate 25 Mg Tablet 1 Tab PO BID Lisinopril 10 Mg Tablet 1 Tab PO DAILY Reported Entresto 24 mg-26 mg Tablet (Sacubitril/Valsartan) 1 Each Tablet 1 Each PO DAILY Effient (Prasugrel Hcl) 10 Mg Tablet 1 Tab PO DAILY Paxil (Paroxetine Hcl) 40 Mg Tablet 40 Mg PO DAILY Atripla Tablet (Efavirenz/Emtricitab/Tenofovir) 1 Each Tablet 1 Each PO DAILY Vitals/I & O Vital Sign - Last 24 Hours 06/23/18 06/23/18 06/23/18 06/23/18 15:00 15:13 17:40 19:00 Temp 97.5 98.2 97.5 98.2 Pulse 100 100 105 Resp 18 20 B/P (MAP) 113/80 (91) 113/80 115/82 (93) Pulse Ox 95 100 96 O2 Delivery Nasal Cannula Nasal Cannula Nasal Cannula O2 Flow Rate 4.0 2.0 4.0 06/23/18 06/23/18 06/23/18 06/24/18 19:34 20:00 23:00 03:29 Temp 97.7 97.8 97.7 97.8 Pulse 104 98 Resp 22 24 B/P (MAP) 106/66 (79) 158/61 (93) Pulse Ox 96 91 95 O2 Delivery Room Air Nasal Cannula Nasal Cannula Nasal Cannula O2 Flow Rate 4.0 4.0 4.0 06/24/18 06/24/18 06/24/18 06/24/18 07:00 07:11 08:00 08:51 Temp 98.3 98.3 Pulse 91 91 Resp 24 B/P (MAP) 113/80 (91) 113/80 Pulse Ox 95 94 O2 Delivery Room Air Room Air Room Air 06/24/18 06/24/18 06/24/18 08:51 10:53 11:18 Temp 97.7 97.7 Pulse 91 96 Resp 20 B/P (MAP) 113/80 122/95 (104) Pulse Ox 97 98 O2 Delivery Room Air Room Air Intake and Output0 06/23/18 06/23/18 06/24/18 15:00 23:00 07:00 Intake Total 300 ml 500 ml Output Total 1000 ml 900 ml Balance -700 ml -400 ml ALEXANDRA MATA MD June 24, 2018 14:05
--- NOTE | 2018-06-24 14:50 | PDOC ---
PROGRESS NOTES Chief Complaint Chief Complaint Shortness of breath cough acute systolic CHF exacerbation hypoxia, imrpoving HIV Drug abuse with secondary heart failure a History of Present Illness History of Present Illness echo done cont current ambulate, will refer to outpatient cardiac rehab, Vitals Vitals Vital Signs Date Time Temp Pulse Resp B/P (MAP) Pulse Ox O2 Delivery O2 Flow Rate FiO2 06/24/18 11:18 98 Room Air 06/24/18 10:53 97.7 96 20 122/95 (104) 97.7 06/24/18 03:29 4.0 Physical Exam General: mild distress Heart: Regular rate Lungs: Clear Abdomen: Normal bowel sounds Extremities: No cyanosis, Other (1+ bilateral LE pitting edema) Skin: No breakdown, No significant lesion Assessment and Plan Assessmemt and Plan Problems Medical Problems: (1) CHF exacerbation Status: Acute (2) Cough Status: Acute Comment Review of Relevant I have reviewed the following items nicolas (where applicable) has been applied. Labs Laboratory Tests Test 06/22/18 16:20 06/22/18 18:45 06/23/18 02:00 06/23/18 12:30 White Blood Count 8.3 x10^3/uL (4.0-11.0) 8.5 x10^3/uL (4.0-11.0) Red Blood Count 4.27 x10^6/uL (4.30-5.70) 4.18 x10^6/uL (4.30-5.70) Hemoglobin 11.7 g/dL (13.0-17.5) 11.7 g/dL (13.0-17.5) Hematocrit 36.8 % (39.0-53.0) 35.9 % (39.0-53.0) Mean Corpuscular Volume 86 fL (79-100) 86 fL (79-100) Mean Corpuscular Hemoglobin 27 pg (25-35) 28 pg (25-35) Mean Corpuscular Hemoglobin Concent 32 g/dL (31-37) 33 g/dL (31-37) Red Cell Distribution Width 19.8 % (11.5-14.5) 19.7 % (11.5-14.5) Platelet Count 430 x10^3/uL (140-400) 444 x10^3/uL (140-400) Neutrophils (%) (Auto) 69 % (31-73) 83 % (31-73) Lymphocytes (%) (Auto) 24 % (24-48) 15 % (24-48) Monocytes (%) (Auto) 4 % (0-9) 2 % (0-9) Eosinophils (%) (Auto) 2 % (0-3) 0 % (0-3) Basophils (%) (Auto) 1 % (0-3) 1 % (0-3) Neutrophils # (Auto) 5.8 x10^3uL (1.8-7.7) 7.1 x10^3uL (1.8-7.7) Lymphocytes # (Auto) 2.0 x10^3/uL (1.0-4.8) 1.2 x10^3/uL (1.0-4.8) Monocytes # (Auto) 0.3 x10^3/uL (0.0-1.1) 0.1 x10^3/uL (0.0-1.1) Eosinophils # (Auto) 0.2 x10^3/uL (0.0-0.7) 0.0 x10^3/uL (0.0-0.7) Basophils # (Auto) 0.1 x10^3/uL (0.0-0.2) 0.0 x10^3/uL (0.0-0.2) Sodium Level 139 mmol/L (136-145) 137 mmol/L (136-145) Potassium Level 3.7 mmol/L (3.5-5.1) 4.2 mmol/L (3.5-5.1) Chloride Level 104 mmol/L (98-107) 103 mmol/L (98-107) Carbon Dioxide Level 25 mmol/L (21-32) 23 mmol/L (21-32) Anion Gap 10 (6-14) 11 (6-14) Blood Urea Nitrogen 15 mg/dL (8-26) 20 mg/dL (8-26) Creatinine 1.7 mg/dL (0.7-1.3) 1.6 mg/dL (0.7-1.3) Estimated GFR (Cockcroft-Gault) 54.9 58.8 BUN/Creatinine Ratio 9 (6-20) 13 (6-20) Glucose Level 111 mg/dL (70-99) 128 mg/dL (70-99) Lactic Acid Level 1.7 mmol/L (0.4-2.0) Calcium Level 9.1 mg/dL (8.5-10.1) 8.8 mg/dL (8.5-10.1) Total Bilirubin 0.4 mg/dL (0.2-1.0) 0.4 mg/dL (0.2-1.0) Aspartate Amino Transf (AST/SGOT) 25 U/L (15-37) 24 U/L (15-37) Alanine Aminotransferase (ALT/SGPT) 33 U/L (16-63) 29 U/L (16-63) Alkaline Phosphatase 122 U/L (46-116) 115 U/L (46-116) Troponin I Quantitative 0.050 ng/mL (0.000-0.055) 0.027 ng/mL (0.000-0.055) GO-Tna-I-Type Natriuretic Peptide 38128 pg/mL (0-124) Total Protein 7.8 g/dL (6.4-8.2) 7.6 g/dL (6.4-8.2) Albumin 2.4 g/dL (3.4-5.0) 2.2 g/dL (3.4-5.0) Albumin/Globulin Ratio 0.4 (1.0-1.7) 0.4 (1.0-1.7) Urine Collection Type Unknown Urine Color Yellow Urine Clarity Clear Urine pH 6.5 Urine Specific [place] 1.010 Urine Protein >=300 mg/dL (NEG-TRACE) Urine Glucose (UA) Negative mg/dL (NEG) Urine Ketones (Stick) Negative mg/dL (NEG) Urine Blood Trace (NEG) Urine Nitrite Negative (NEG) Urine Bilirubin Negative (NEG) Urine Urobilinogen Dipstick 0.2 mg/dL (0.2 mg/dL) Urine Leukocyte Esterase Negative (NEG) Urine RBC 3-5 /HPF (0-2) Urine WBC Occ /HPF (0-4) Urine Bacteria 0 /HPF (0-FEW) Urine Hyaline Casts Moderate /HPF Urine Mucus Slight /LPF Triglycerides Level 67 mg/dL (0-150) Cholesterol Level 132 mg/dL (0-200) LDL Cholesterol, Calculated 74 mg/dL (0-100) VLDL Cholesterol, Calculated 13 mg/dL (0-40) Non-HDL Cholesterol Calculated 87 mg/dL (0-129) HDL Cholesterol 45 mg/dL (40-60) Cholesterol/HDL Ratio 2.9 Urine Opiates Screen Pos (NEG) Urine Methadone Screen Neg (NEG) Urine Barbiturates Neg (NEG) Urine Phencyclidine Screen Neg (NEG) Urine Amphetamine/Methamphetamine Neg (NEG) Urine Benzodiazepines Screen Neg (NEG) Urine Cocaine Screen Neg (NEG) Urine Cannabinoids Screen Neg (NEG) Urine Ethyl Alcohol Neg (NEG) Microbiology 06/22/18 Blood Culture - Preliminary, Resulted NO GROWTH AFTER 1 DAY Medications Current Medications Albuterol/ Ipratropium (Duoneb) 3 ml 1X ONCE NEB Last administered on 06/22/18at 16:26; Start 06/22/18 at 16:15; Stop 06/22/18 at 16:20; Status DC Methylprednisolone Sodium Succinate (SOLU-Medrol 125MG VIAL) 125 mg 1X ONCE IV Last administered on 06/22/18at 16:56; Start 06/22/18 at 16:15; Stop 06/22/18 at 16:20; Status DC Furosemide (Lasix) 40 mg 1X ONCE IVP Last administered on 06/22/18at 17:53; Start 06/22/18 at 18:00; Stop 06/22/18 at 18:01; Status DC Ondansetron HCl (Zofran) 4 mg PRN Q8HRS PRN IV NAUSEA/VOMITING; Start 06/22/18 at 18:15; Stop 06/23/18 at 18:14; Status DC Fentanyl Citrate (Fentanyl 2ml Vial) 50 mcg PRN Q1HR PRN IV PAIN; Start 06/22/18 at 18:15; Stop 06/23/18 at 18:14; Status DC Acetaminophen (Tylenol) 650 mg PRN Q4HRS PRN PO FEVER; Start 06/22/18 at 18:15; Stop 06/23/18 at 18:14; Status DC Albuterol/ Ipratropium (Duoneb) 3 ml RTQID NEB Last administered on 06/24/18at 11:17; Start 06/22/18 at 20:00 Albuterol/ Ipratropium (Duoneb) 3 ml PRN Q2HR PRN NEB SHORTNESS OF BREATH; Start 06/22/18 at 19:45; Stop 06/22/18 at 20:08; Status DC Albuterol Sulfate (Ventolin Neb Soln) 2.5 mg PRN Q2HRS PRN NEB SHORTNESS OF BREATH; Start 06/22/18 at 20:15 Lorazepam (Ativan) 4 mg PRN Q1HR PRN PO For CIWA 8-14; Start 06/22/18 at 22:45 Lorazepam (Ativan) 2 mg PRN Q1HR PRN IV For CIWA 8-14; Start 06/22/18 at 22:45 Lorazepam (Ativan) 4 mg PRN Q1HR PRN IV For CIWA 15 or greater; Start 06/22/18 at 22:45 Furosemide (Lasix) 40 mg DAILY IVP Last administered on 06/24/18 08:52; Start 06/23/18 at 11:00 Aspirin (Ecotrin) 81 mg DAILYWBKFT PO Last administered on 06/24/18 08:51; Start 06/23/18 at 11:00 Carvedilol (Coreg) 6.25 mg BIDWMEALS PO Last administered on 06/24/18 08:51; Start 06/23/18 at 11:00 Losartan Potassium (Cozaar) 25 mg DAILY PO Last administered on 06/24/18 08:51; Start 06/23/18 at 11:00 Atorvastatin Calcium (Lipitor) 20 mg QHS PO Last administered on 06/23/18 21:12; Start 06/23/18 at 21:00 Benzonatate (Tessalon Perle) 200 mg PRN TID PRN PO cough 0900 1400 2100 Last administered on 06/24/18 08:52; Start 06/24/18 at 00:45 Active Scripts Active Lasix (Furosemide) 40 Mg Tablet 1 Tab PO DAILY Thiamine Hcl 100 Mg/1 Ml Vial 100 Mg IM DAILY 30 Days Folic Acid 1 Mg Tablet 1 Mg PO DAILY 30 Days Lipitor (Atorvastatin Calcium) 20 Mg Tablet 20 Mg PO HS Aspir 81 (Aspirin) 81 Mg Tablet.dr 1 Tab PO DAILY Metoprolol Tartrate 25 Mg Tablet 1 Tab PO BID Lisinopril 10 Mg Tablet 1 Tab PO DAILY Reported Entresto 24 mg-26 mg Tablet (Sacubitril/Valsartan) 1 Each Tablet 1 Each PO DAILY Effient (Prasugrel Hcl) 10 Mg Tablet 1 Tab PO DAILY Paxil (Paroxetine Hcl) 40 Mg Tablet 40 Mg PO DAILY Atripla Tablet (Efavirenz/Emtricitab/Tenofovir) 1 Each Tablet 1 Each PO DAILY Vitals/I & O Vital Sign - Last 24 Hours 06/23/18 06/23/18 06/23/18 06/23/18 15:00 15:13 17:40 19:00 Temp 97.5 98.2 97.5 98.2 Pulse 100 100 105 Resp 18 20 B/P (MAP) 113/80 (91) 113/80 115/82 (93) Pulse Ox 95 100 96 O2 Delivery Nasal Cannula Nasal Cannula Nasal Cannula O2 Flow Rate 4.0 2.0 4.0 06/23/18 06/23/18 06/23/18 06/24/18 19:34 20:00 23:00 03:29 Temp 97.7 97.8 97.7 97.8 Pulse 104 98 Resp 22 24 B/P (MAP) 106/66 (79) 158/61 (93) Pulse Ox 96 91 95 O2 Delivery Room Air Nasal Cannula Nasal Cannula Nasal Cannula O2 Flow Rate 4.0 4.0 4.0 06/24/18 06/24/18 06/24/18 06/24/18 07:00 07:11 08:00 08:51 Temp 98.3 98.3 Pulse 91 91 Resp 24 B/P (MAP) 113/80 (91) 113/80 Pulse Ox 95 94 O2 Delivery Room Air Room Air Room Air 06/24/18 06/24/18 06/24/18 08:51 10:53 11:18 Temp 97.7 97.7 Pulse 91 96 Resp 20 B/P (MAP) 113/80 122/95 (104) Pulse Ox 97 98 O2 Delivery Room Air Room Air Intake and Output 06/23/18 06/23/18 06/24/18 15:00 23:00 07:00 Intake Total 300 ml 500 ml Output Total 1000 ml 900 ml Balance -700 ml -400 ml KIRK ZIMMER MD June 24, 2018 14:50
[2018-06-24 15:00] VITALS: BP 126/83
[2018-06-24 19:05] VITALS: BP 112/82
[2018-06-24] MEDS: ATORVASTATIN CALCIUM 20 MG TABLET PO SCH (20:22)
[2018-06-24 23:05] VITALS: BP 102/70
[2018-06-25 03:05] VITALS: BP 107/69
[2018-06-25 05:37] LABS: CALCIUM 8.7 mg/dL (8.5-10.1); CREATININE 1.9 mg/dL (0.7-1.3); GFR 48.2; MAGNESIUM 1.9 mg/dL (1.8-2.4); POTASSIUM 3.7 mmol/L (3.5-5.1)
[2018-06-25 07:00] VITALS: BP 131/102
[2018-06-25] MEDS: IPRATRPIUM/ALBUTEROL 0.5/2.5MG 3 ML NEBU. NEB SCH (08:00)
[2018-06-25] MEDS ORDERED: CARV6.2511 PO (09:10)
--- NOTE | 2018-06-25 09:59 | NUR ---
pt was discharged home with self care. gave him a script for carvedilol. pt was very impatient to go home. would not even wait for me to administer his morning meds. Claire CARBAJAL took him down to the main entrance for his ride home. Hansel Hernandez RN
--- NOTE | 2018-06-25 14:53 | PDOC3 ---
Discharge Summary Visit Information Date of Admission: June 22, 2018 Date of Discharge: June 25, 2018 Final Diagnosis Shortness of breath cough acute systolic CHF exacerbation hypoxia, imrpoving HIV Drug abuse Problems Medical Problems: (1) CHF exacerbation Status: Acute (2) Cough Status: Acute Brief Hospital Course Allergies Allergies Coded Allergies Type Severity Reaction Last Updated Verified No Known Drug Allergies 08/01/16 No Vital Signs Vital Signs Date Time Temp Pulse Resp B/P (MAP) Pulse Ox O2 Delivery O2 Flow Rate FiO2 06/25/18 09:35 Room Air 3.0 06/25/18 07:00 98.4 97 18 131/102 (112) 96 98.4 Lab Results Laboratory Tests Test 06/25/18 03:45 Sodium Level 137 mmol/L (136-145) Potassium Level 3.7 mmol/L (3.5-5.1) Chloride Level 104 mmol/L (98-107) Carbon Dioxide Level 22 mmol/L (21-32) Anion Gap 11 (6-14) Blood Urea Nitrogen 36 mg/dL (8-26) Creatinine 1.9 mg/dL (0.7-1.3) Estimated GFR (Cockcroft-Gault) 48.2 Glucose Level 101 mg/dL (70-99) Calcium Level 8.7 mg/dL (8.5-10.1) Magnesium Level 1.9 mg/dL (1.8-2.4) Laboratory Tests Test 06/25/18 03:45 Sodium Level 137 mmol/L (136-145) Potassium Level 3.7 mmol/L (3.5-5.1) Chloride Level 104 mmol/L (98-107) Carbon Dioxide Level 22 mmol/L (21-32) Anion Gap 11 (6-14) Blood Urea Nitrogen 36 mg/dL (8-26) Creatinine 1.9 mg/dL (0.7-1.3) Estimated GFR (Cockcroft-Gault) 48.2 Glucose Level 101 mg/dL (70-99) Calcium Level 8.7 mg/dL (8.5-10.1) Magnesium Level 1.9 mg/dL (1.8-2.4) Brief Hospital Course Mr. Perera is a 37 old male, admit with weakness, cough, dyspnea, CHF, lasix IV x3 days, meds adjusted he has entresto samples at home cont PO lasix, b-kalia changed to coreg, needs to f/u CV clinic, i referred to outpatient cardiopulm rehab Discharge Information Condition at Discharge: Improved Follow Up: Weeks Disposition/Orders: D/C to Home Scheduled Aspirin (Aspir 81) 81 Mg Tablet., 1 TAB PO DAILY, #30 Ref 5 Prescribed by: VINEET LIZAMA on 08/04/16 0805 Atorvastatin Calcium (Lipitor) 20 Mg Tablet, 20 MG PO HS for FOR CHOLESTEROL, #30 Ref 0 Prescribed by: VINEET LIZAMA on 08/04/16 08 Last Taken: Unknown Dose on 06/21/18 Last Action: Last Taken Edited on 06/23/18536 by DONNA JACOB Carvedilol (Carvedilol ) 6.25 Mg Tablet, 6.25 MG PO BIDWMEALS for chf, #60 Prescribed by: KIRK ZIMMER on 06/25/18 09 Efavirenz/Emtricitab/Tenofovir (Atripla Tablet) 1 Each Tablet, 1 EACH PO DAILY, (Reported) Entered as Reported by: ALFREDA ESQUIVEL on 08/01/161406 Last Taken: Unknown Dose on 06/21/18 Last Action: Last Taken Edited on 05/09 by DONNA JACOB Folic Acid (Folic Acid) 1 Mg Tablet, 1 MG PO DAILY for SUPPLEMENT for 30 Days, #30 Prescribed by: ROB MCLAIN MD on 02/13/181552 Last Taken: Unknown Dose on 05/23/18 Last Action: Last Taken Edited on 06/23/18536 by DONNA JACOB Furosemide (Lasix) 40 Mg Tablet, 1 TAB PO DAILY for CHF, #30 Ref 5 Prescribed by: ROB MCLAIN MD on 02/13/181552 Last Taken: Unknown Dose on 06/21/18 Last Action: Last Taken Edited on 06/23/18536 by DONAN JACOB Paroxetine Hcl (Paxil) 40 Mg Tablet, 40 MG PO DAILY, (Reported) Entered as Reported by: ALFREDA ESQUIVEL on 08/01/161406 Last Taken: Unknown Dose on 06/21/18 Last Action: Last Taken Edited on 06/23/18536 by DONNA JACOB Prasugrel Hcl (Effient) 10 Mg Tablet, 1 TAB PO DAILY, #90 Ref 1 (Reported) Entered as Reported by: SANDHYA BRAUN on 08/04/16 1355 Last Taken: Unknown Dose on 06/21/18 Last Action: Last Taken Edited on 06/23/18536 by DONNA JACOB Sacubitril/Valsartan (Entresto 24 mg-26 mg Tablet) 1 Each Tablet, 1 EACH PO DAILY for CHF, (Reported) Entered as Reported by: DONNA JACOB on 06/23/18536 Last Taken: UNKNOWN on 05/22/18 Last Action: New Order on 06/23/18536 by DONNA JACOB Thiamine Hcl (Thiamine Hcl) 100 Mg/1 Ml Vial, 100 MG IM DAILY for SUPPLEMENT for 30 Days, #30 Prescribed by: ROB MCLAIN MD on 02/13/18 1553 Last Taken: Unknown Dose on 05/23/18 Last Action: Last Taken Edited on 06/23/18536 by DONNA JACOB Discontinued Medications Lisinopril (Lisinopril) 10 Mg Tablet, 1 TAB PO DAILY, #30 Ref 5 Prescribed by: VINEET LIZAMA on 08/04/16 0805 Metoprolol Tartrate (Metoprolol Tartrate) 25 Mg Tablet, 1 TAB PO BID, #180 Ref 1 Prescribed by: VINEET LIZAMA on 08/04/16 0805 Last Taken: Unknown Dose on 06/21/18 Last Action: Last Taken Edited on 06/23/18536 by DONNA JACOB Patient Instructions Patient Instructions > 30 min face to faceKIRK Bruce MD June 25, 2018 14:53
== END 2018-06-25 10:11 | disposition home or self-care (01) | DRG 917 ==
LOC: ER 15:58 → OBSVTOIN 17:50 → 6 SOUTH 17:50
PROVIDERS: ADMIT Internal Medicine; ATTEND Internal Medicine
DX: T43.621A Poisoning by amphetamines, accidental (unintentional), initial encounter (principal); I50.43 Acute on chronic combined systolic (congestive) and diastolic (congestive) heart failure; J18.9 Pneumonia, unspecified organism; I13.0 Hypertensive heart and chronic kidney disease with heart failure and stage 1 through stage 4 chronic kidney disease, or unspecified chronic kidney disease; I42.9 Cardiomyopathy, unspecified; Y92.89 Other specified places as the place of occurrence of the external cause; E78.5 Hyperlipidemia, unspecified; F17.210 Nicotine dependence, cigarettes, uncomplicated; F41.9 Anxiety disorder, unspecified; I25.10 Atherosclerotic heart disease of native coronary artery without angina pectoris; Z21 Asymptomatic human immunodeficiency virus [HIV] infection status; F11.90 Opioid use, unspecified, uncomplicated; I34.0 Nonrheumatic mitral (valve) insufficiency; N18.9 Chronic kidney disease, unspecified; R09.02 Hypoxemia; Z82.49 Family history of ischemic heart disease and other diseases of the circulatory system; Z91.19 Patient's noncompliance with other medical treatment and regimen; Z79.899 Other long term (current) drug therapy; J40 Bronchitis, not specified as acute or chronic
CPT/HCPCS: 36415; 71045; 80048; 80053; 80061; 80307; 81001; 83605; 83735; 83880; 84484; 85025; 87040; 93005; 93306; 94640; 94760; 96374; 96375; 99406; J1940; J2930; J7620; 99285-25

== ENCOUNTER 2018-09-03 07:46 | Inpatient (IN) | payer OTHER ==
[~2018-09-03] VITALS: Ht 177.8 cm; Wt 80.8 kg
[~2018-09-03 07:46] MED LIST changes: +ALBU2.5V8 INH; +BENZ100C PO; +CARV6.2511 PO; +DOXY100C14 PO; +SACU1TAB PO
[2018-09-03 08:11] LABS: BASO # 0.1 x10^3/uL (0.0-0.2); BASO % 1 % (0-3); EOS # 0.1 x10^3/uL (0.0-0.7); EOS % 2 % (0-3); HEMATOCRIT 38.4 % (39.0-53.0); LYMPH # 2.2 x10^3/uL (1.0-4.8); LYMPH % 41 % (24-48); MEAN CORPUSCULAR HEMOGLOBIN 26 pg (25-35); MEAN CORPUSCULAR HGB CONC 31 g/dL (31-37); MEAN CORPUSCULAR VOLUME 84 fL (79-100); MONO # 0.3 x10^3/uL (0.0-1.1); MONO % 6 % (0-9); NEUT # 2.8 x10^3/uL (1.8-7.7); NEUT % 51 % (31-73); PLATELET COUNT 381 x10^3/uL (140-400); RED BLOOD COUNT 4.56 x10^6/uL (4.30-5.70); RED CELL DISTRIBUTION WIDTH 21.6 % (11.5-14.5); WHITE BLOOD COUNT 5.5 x10^3/uL (4.0-11.0)
[2018-09-03 08:20] LABS: PROTHROMBIN TIME PATIENT 13.9 SEC (11.7-14.0)
[2018-09-03 08:23] LABS: CALCIUM 8.7 mg/dL (8.5-10.1); CREATININE 1.6 mg/dL (0.7-1.3); GFR 58.5; POTASSIUM 3.8 mmol/L (3.5-5.1)
[2018-09-03 08:29] LABS: ALBUMIN 2.7 g/dL (3.4-5.0); ALBUMIN/GLOBULIN RATIO 0.6 (1.0-1.7); MAGNESIUM 1.7 mg/dL (1.8-2.4); TOTAL BILIRUBIN 0.4 mg/dL (0.2-1.0); TOTAL PROTEIN 7.6 g/dL (6.4-8.2)
[2018-09-03] MEDS ORDERED: IPRATRPIUM/ALBUTEROL 0.5/2.5MG 3 ML NEBU. NEB ONE (08:45)
[2018-09-03] MEDS ORDERED: FUROSEMIDE 40 MG/4 ML VIAL. IVP ONE (08:45)
[2018-09-03] MEDS ORDERED: methylPREDNISolone SOD SUCC PF 125 MG/2 ML VIAL. IV ONE (08:45)
--- NOTE | 2018-09-03 08:48 | PHYS DOC ---
Past Medical History Past Medical History: CHF, Heart Disease, Hypertension Additional Past Medical Histor: "HEARING VOICES" Past Surgical History: No Surgical History Alcohol Use: None Drug Use: None Adult General Chief Complaint Chief Complaint: SHORTNESS OF BREATH [facility] HPI Patient is a 38 year old male who presents with complaining of shortness of breath. Patient states he has had history of CHF because of previous [place] and for the last 2 days has increase of shortness of breath with supine position without chest pain or cough. Patient states he took 80 mg Lasix last night without improvement of his condition. Patient states he took 3 Benadryl this morning but still is doesn't feel good. Patient states he quit smoking several weeks ago and did not use any more methamphetamine for a while. Review of Systems Review of Systems Constitutional: Denies fever or chills [] Eyes: Denies change in visual acuity, redness, or eye pain [] HENT: Denies nasal congestion or sore throat [] Respiratory: Denies cough, reports shortness of breath [] Cardiovascular: No additional information not addressed in HPI [] GI: Denies abdominal pain, nausea, vomiting, bloody stools or diarrhea [] : Denies dysuria or hematuria [] Musculoskeletal: Denies back pain or joint pain [] Integument: Denies rash or skin lesions [] Neurologic: Denies headache, focal weakness or sensory changes [] Endocrine: Denies polyuria or polydipsia [] All other systems were reviewed and found to be within normal limits, except as documented in this note. Current Medications Current Medications Allergies Allergies Allergies Coded Allergies Type Severity Reaction Last Updated Verified No Known Drug Allergies 08/01/16 No Physical Exam Physical Exam Constitutional: Moderate distress, non-toxic appearance. [] HENT: Normocephalic, atraumatic, oropharynx moist. Eyes: PERRLA, EOMI, conjunctiva normal, no discharge. [] Neck: Normal range of motion, no tenderness, supple, no stridor. [] Cardiovascular: Tachycardia, no murmur [] Lungs & Thorax: Tachypnea with mild respiratory distress, decrease of bilateral air movement, no wheezing or rhonchi. Abdomen: Bowel sounds normal, soft, no tenderness, no masses, no pulsatile masses. [] Skin: Warm, dry, no erythema, no rash. [] Back: No tenderness, no CVA tenderness. [] Extremities: No tenderness, no cyanosis, no clubbing, ROM intact, no edema. [] Neurologic: Alert and oriented X 3, normal motor function, normal sensory function, no focal deficits noted. [] Psychologic: Affect anxious, judgement normal, mood normal. [] Current Patient Data Vital Signs Vital Signs Date Time Temp Pulse Resp B/P (MAP) Pulse Ox O2 Delivery O2 Flow Rate FiO2 09/03/18 08:30 100 30 118/86 (97) 98 Nasal Cannula 3.0 09/03/18 08:05 98.1 98.1 Lab Values Laboratory Tests Test 09/03/18 08:00 09/03/18 08:10 White Blood Count 5.5 x10^3/uL (4.0-11.0) Red Blood Count 4.56 x10^6/uL (4.30-5.70) Hemoglobin 12.0 g/dL (13.0-17.5) L Hematocrit 38.4 % (39.0-53.0) L Mean Corpuscular Volume 84 fL (79-100) Mean Corpuscular Hemoglobin 26 pg (25-35) Mean Corpuscular Hemoglobin Concent 31 g/dL (31-37) Red Cell Distribution Width 21.6 % (11.5-14.5) H Platelet Count 381 x10^3/uL (140-400) Neutrophils (%) (Auto) 51 % (31-73) Lymphocytes (%) (Auto) 41 % (24-48) Monocytes (%) (Auto) 6 % (0-9) Eosinophils (%) (Auto) 2 % (0-3) Basophils (%) (Auto) 1 % (0-3) Neutrophils # (Auto) 2.8 x10^3/uL (1.8-7.7) Lymphocytes # (Auto) 2.2 x10^3/uL (1.0-4.8) Monocytes # (Auto) 0.3 x10^3/uL (0.0-1.1) Eosinophils # (Auto) 0.1 x10^3/uL (0.0-0.7) Basophils # (Auto) 0.1 x10^3/uL (0.0-0.2) Platelet Estimate Adequate (ADEQUATE) Polychromasia Present Anisocytosis Present Macrocytosis Present Ovalocytes Present Prothrombin Time 13.9 SEC (11.7-14.0) Prothrombin Time INR 1.1 (0.8-1.1) Sodium Level 135 mmol/L (136-145) L Potassium Level 3.8 mmol/L (3.5-5.1) Chloride Level 102 mmol/L (98-107) Carbon Dioxide Level 23 mmol/L (21-32) Anion Gap 10 (6-14) Blood Urea Nitrogen 21 mg/dL (8-26) Creatinine 1.6 mg/dL (0.7-1.3) H Estimated GFR (Cockcroft-Gault) 58.5 BUN/Creatinine Ratio 13 (6-20) Glucose Level 121 mg/dL (70-99) H Calcium Level 8.7 mg/dL (8.5-10.1) Magnesium Level 1.7 mg/dL (1.8-2.4) L Total Bilirubin 0.4 mg/dL (0.2-1.0) Aspartate Amino Transferase (AST) 33 U/L (15-37) Alanine Aminotransferase (ALT) 43 U/L (16-63) Alkaline Phosphatase 158 U/L (46-116) H Creatine Kinase 217 U/L (39-308) Troponin I Quantitative 0.021 ng/mL (0.000-0.055) RC-Rla-B-Type Natriuretic Peptide 84262 pg/mL (0-124) H Total Protein 7.6 g/dL (6.4-8.2) Albumin 2.7 g/dL (3.4-5.0) L Albumin/Globulin Ratio 0.6 (1.0-1.7) L Urine Opiates Screen Neg (NEG) Urine Methadone Screen Neg (NEG) Urine Barbiturates Neg (NEG) Urine Phencyclidine Screen Neg (NEG) Urine Amphetamine/Methamphetamine Neg (NEG) Urine Benzodiazepines Screen Neg (NEG) Urine Cocaine Screen Neg (NEG) Urine Cannabinoids Screen Neg (NEG) Urine Ethyl Alcohol Neg (NEG) Laboratory Tests 09/03/18 08:00 Laboratory Tests 09/03/18 08:00 EKG EKG EKG interpreted by me. EKG at 0755 showed sinus tachycardia at rate of 102 left atrial abnormality, right de la cruz axis, poor R-wave progress in anteroseptal defect) and T-wave abnormalities. Radiology/Procedures Radiology/Procedures [][facility] [address] [place] [address] IMAGING REPORT Signed PATIENT: ALLA JACK ACCOUNT: [id number] : 1980 LOCATION: ER AGE: 38 SEX: M EXAM STATUS: REG ER ORD. PHYSICIAN: VICTORINO BERMAN MD REASON: shortness of breath,pt complains of short of breath, can't lay flat. PROCEDURE: PORTABLE CHEST 1V EXAM: CHEST 1 VIEW History: Shortness of breath COMPARISON: 08/01/2018 TECHNIQUE: Single portable radiograph of the chest FINDINGS: Mild cardiomegaly. There is mild prominent appearing bilateral interstitial lung markings particularly in the perihilar region likely mild congestive changes. Impression: Mild prominent bilateral interstitial lung markings likely mild congestive changes. Electronically signed by: Leobardo Weiss MD (09/03/2018 8:46 AM) [facility] DICTATED and SIGNED BY: LEOBARDO WEISS MD DATE: 09/03/18 0846 Course & Med Decision Making Course & Med Decision Making Pertinent Labs and Imaging studies reviewed. (See chart for details) Evaluation of patient in ER showed 38-year-old male patient with history of CHF and complaining of increasing shortness of breath with supine position for the last couple days that did not get better with extra dose of Lasix. Patient had mild respiratory distress with hyperventilation and started on oxygen with increase of O2 sat to 97%. Chest x-ray showed mild CHF and labs showed a white count with mild hypomagnesemia. Patient treated with IV Lasix and ABG was obtained with normal pH and PCO2 and PO2 of 107 and oxygen decreased from 4 L to 3 L. Patient requiring admission for further evaluation and treatment. Discussed with Dr. Rubin who is in agreement with admission. Discussed findings and plan with patient and family, who acknowledge understanding and agreement. Dr. Aguilar presented to ER and evaluated the patient. Dragon Disclaimer Dragon Disclaimer This electronic medical record was generated, in whole or in part, using a voice recognition dictation system. Departure Departure Impression: Primary Impression: Acute exacerbation of CHF (congestive heart failure) Additional Impressions: Respiratory distress Renal insufficiency Hypomagnesemia Disposition: ADMITTED INPATIENT (at 0 846) Admitting Physician: SIXTO (Dr Rubin accepted admission at 0846) Condition: GUARDED Referrals: MOHINDER GO MD (PCP) Problem Qualifiers Primary Impression: Acute exacerbation of CHF (congestive heart failure) Heart failure type: unspecified Qualified Codes: I50.9 - Heart failure, unspecified VICTORINO BERMAN MD Sep 03, 2018 08:47
[2018-09-03 08:50] LABS: AMPHETAMINE/METHAMPHETAMINE NEG (NEG); BARBITURATES NEG (NEG); BENZODIAZEPINES NEG (NEG); CANNABINOIDS NEG (NEG); COCAINE NEG (NEG); METHADONE NEG (NEG); OPIATES NEG (NEG); PHENCYCLIDINE NEG (NEG)
[2018-09-03] MEDS ORDERED: MAGNESIUM SULFATE 2GM 50 ML IV ONE (09:00)
--- NOTE | 2018-09-03 09:00 | PDOC1 ---
History and Physical Date of Admission Date of Admission DATE: 09/03/18 TIME: 08:52 Identification/Chief Complaint Chief Complaint Shortness of breath, Orthopnea Source Source: Patient History of Present Illness History of Present Illness Mr Perera is a 38 yo male w/ PMHx CAD s/p PCI wit stenting, sCHF EF 20%, HTN, [place], Hyperlipidemia, Valve insufficiency MR moderate to severe, Asthma, Anxiety, HIV on HAART who came to ED for complains of SOB and worsening orthopnea, unable to lay down. Reports that he has been having episodes of intractable coughing in the last 2 weeks with sometimes productive sputum white color and thinking that this his bronchitis acting up also with bifrontal AGUERO afterwards. He did have some right chest pain after coughing but otherwise denies. No palpitations, frequent dizziness or leg swelling. No PND but has orthopnea and increasing wheezing. No jaw tightness or arm discomfort. No recent falls or injury. He stopped smoking tobacco 1 week ago and denies continuing to use meth. Since then he started drinking vodka due to stress about but states he has backed off on this too. Verbalized compliance with his meds and his symptoms actually improved when he doubled his lasix dose at one point, but last night took 80mg of lasix without improvement. In ED notably had BNP 32508, mag 1.7. He is agitated and notes he has felt the urge to urinate after he took 3 50mg benadryl last night to sleep and took another this morning. CXR consistent with CHF exacerbation. ABG with normal pH and PCO2. Past Medical History Cardiovascular: CAD, CHF, HTN, [place], Hyperlipidemia, Valve insufficiency Pulmonary: Asthma Psych: Anxiety Musculoskeletal: Other Rheumatologic: No pertinent hx Infectious disease: No pertinent hx, Other Renal/: No pertinent hx Endocrine: No pertinent hx Past Surgical History Past Surgical History: Other Family History Family History: Coronary Artery Disease Social History ALCOHOL: none Drugs: Crystal meth Current Medications Current Medications Current Medications Furosemide (Lasix) 40 mg 1X ONCE IVP Last administered on 09/03/18at 08:50; Start 09/03/18 at 08:45; Stop 09/03/18 at 08:46; Status DC Methylprednisolone Sodium Succinate (SOLU-Medrol 125MG VIAL) 125 mg 1X ONCE IV Last administered on 09/03/18at 08:51; Start 7/14/19 at 08:45; Stop 09/03/18 at 08:46; Status DC Albuterol/ Ipratropium (Duoneb) 3 ml 1X ONCE NEB ; Start 09/03/18 at 08:45; Stop 09/03/18 at 08:46; Status DC Active Scripts Active Tessalon Perle (Benzonatate) 100 Mg Capsule 1 Cap PO TID Proair Hfa Inhaler (Albuterol Sulfate) 8.5 Gm Hfa.aer.ad 1 Puff INH PRN Q6HRS CT N 30 Days Doxycycline Monohydrate 100 Mg Capsule 1 Cap PO BID Carvedilol (Carvedilol) 6.25 Mg Tablet 6.25 Mg PO BIDWMEALS Lasix (Furosemide) 40 Mg Tablet 1 Tab PO DAILY Thiamine Hcl 100 Mg/1 Ml Vial 100 Mg IM DAILY 30 Days Folic Acid 1 Mg Tablet 1 Mg PO DAILY 30 Days Lipitor (Atorvastatin Calcium) 20 Mg Tablet 20 Mg PO HS Aspir 81 (Aspirin) 81 Mg Tablet.dr 1 Tab PO DAILY Reported Entresto 24 mg-26 mg Tablet (Sacubitril/Valsartan) 1 Each Tablet 1 Each PO DAILY Effient (Prasugrel Hcl) 10 Mg Tablet 1 Tab PO DAILY Paxil (Paroxetine Hcl) 40 Mg Tablet 40 Mg PO DAILY Atripla Tablet (Efavirenz/Emtricitab/Tenofovir) 1 Each Tablet 1 Each PO DAILY Allergies Allergies: Coded Allergies: No Known Drug Allergies (Unverified , 08/01/16) ROS General: YES: Fatigue, Malaise; No: Chills, Night Sweats, Appetite, Other PSYCHOLOGICAL ROS: YES: Anxiety, Disorientation, Hostility, Irritablity; No: Behavioral Disorder, Concentration difficultie, Decreased libido, Depression, Hallucinations, Memory difficulties, Mood Swings, Obsessive thou ghts, Physical abuse, Sexual abuse, Sleep disturbances, Suicidal ideation, Other Eyes: No Blurry vision, No Decreased vision, No Double vision, No Dry eyes, No Excessive tearing, No Eye Pain, No Itchy Eyes, No Loss of vision, No Photo phobia, No Scotomata, No Uses contacts, No Uses glasses, No Other HEENT: No: Heacaches, Visual Changes, Hearing change, Nasal congestion, Nasal discharge, Oral lesions, Sinus pain, Sore Throat, Epistaxis, Sneezing, Snoring, Tinnitus, Vertigo, Vocal changes, Other ALLERGY AND IMMUNOLOGY: No: Hives, Insect Bite Sensitivity, Itchy/Watery Eyes, Nasal Congestion, Post Nasal Drip, Seasonal Allergies, Other Hematological and Lymphatic: No: Bleeding Problems, Blood Clots, Blood Transfusions, Brusing, Night Sweats, Pallor, Swollen Lymph Nodes, Other ENDOCRINE: No: Breast Changes, Galactorrhea, Hair Pattern Changes, Hot Flashes, Malaise/lethargy, Mood Swings, Palpitations, Polydipsia/polyuria, Skin Changes, Temperature Intolerance, Unexpected Weight Changes, Other Breast: No New/Changing Breast Lumps, No Nipple changes, No Nipple discharge, No Other Respiratory: YES: Shortness of breath, SOB with excertion; No: Cough, Hemoptysis, Orthopnea, Pleuritic Pain, Sputum Changes, Stridor, Tachypnea, Wheezing, Other Cardiovascular: yes Orthopnea, yes Paroxysmal Noc. Dyspnea; No Chest Pain, No Palpitations, No Edema, No Lt Headedness, No Other Gastrointestinal: No Nausea, No Vomiting, No Abdominal Pain, No Diarrhea, No Constipation, No Melena, No Hematochezia, No Other Genitourinary: No Dysuria, No Frequency, No Incontinence, No Hematuria, No Retention, No Discharge, No Urgency, No Pain, No Flank Pain, No Other, No , No , No , No , No , No , No Musculoskeletal: No Gait Disturbance, No Joint Pain, No Joint Stiffness, No Joint Swelling, No Muscle Pain, No Muscular Weakness, No Pain In:, No Swelling In:, No Other Neurological: No Behavorial Changes, No Bowel/Bladder ControlChng, No Confusion, No Dizziness, No Gait Disturbance, No Headaches, No Impaired Coord/balance, No Memory Loss, No Numbness/Tingling, No Seizures, No Speech Problems, No Tremors, No Visual Changes, No Weakness, No Other Skin: No Dry Skin, No Eczema, No Hair Changes, No Lumps, No Mole Changes, No Mottling, No Nail Changes, No Pruritus, No Rash, No Skin Lesion Changes, No Other, No Acne Physical Exam General: Alert, Cooperative, moderate distress HEENT: Atraumatic, PERRLA, EOMI, Mucous membr. moist/pink Lungs: Other (Bibasilar crackles) Heart: S1S2, RRR, murmurs (3/6 [place]) Abdomen: Normal bowel sounds, Soft, No tenderness, No hepatosplenomegaly, No masses Extremities: No clubbing, No cyanosis, No edema, Normal pulses, No tenderness/swelling Skin: No rashes, No breakdown, No significant lesion Neuro: Normal gait, Normal speech, Strength at 5/5 X4 ext, Normal tone, Sensation intact, Cranial nerves 3-12 NL, Reflexes 2+ Psych/Mental Status: Other (Agitated) Vitals Vitals Vital Signs Date Time Temp Pulse Resp B/P (MAP) Pulse Ox O2 Delivery O2 Flow Rate FiO2 09/03/18 08:30 100 30 118/86 (97) 98 Nasal Cannula 3.0 09/03/18 08:05 98.1 98.1 Labs Labs Laboratory Tests Test 09/03/18 08:00 09/03/18 08:10 White Blood Count 5.5 x10^3/uL (4.0-11.0) Red Blood Count 4.56 x10^6/uL (4.30-5.70) Hemoglobin 12.0 g/dL (13.0-17.5) Hematocrit 38.4 % (39.0-53.0) Mean Corpuscular Volume 84 fL (79-100) Mean Corpuscular Hemoglobin 26 pg (25-35) Mean Corpuscular Hemoglobin Concent 31 g/dL (31-37) Red Cell Distribution Width 21.6 % (11.5-14.5) Platelet Count 381 x10^3/uL (140-400) Neutrophils (%) (Auto) 51 % (31-73) Lymphocytes (%) (Auto) 41 % (24-48) Monocytes (%) (Auto) 6 % (0-9) Eosinophils (%) (Auto) 2 % (0-3) Basophils (%) (Auto) 1 % (0-3) Neutrophils # (Auto) 2.8 x10^3/uL (1.8-7.7) Lymphocytes # (Auto) 2.2 x10^3/uL (1.0-4.8) Monocytes # (Auto) 0.3 x10^3/uL (0.0-1.1) Eosinophils # (Auto) 0.1 x10^3/uL (0.0-0.7) Basophils # (Auto) 0.1 x10^3/uL (0.0-0.2) Prothrombin Time 13.9 SEC (11.7-14.0) Prothromb Time International Ratio 1.1 (0.8-1.1) Sodium Level 135 mmol/L (136-145) Potassium Level 3.8 mmol/L (3.5-5.1) Chloride Level 102 mmol/L (98-107) Carbon Dioxide Level 23 mmol/L (21-32) Anion Gap 10 (6-14) Blood Urea Nitrogen 21 mg/dL (8-26) Creatinine 1.6 mg/dL (0.7-1.3) Estimated GFR (Cockcroft-Gault) 58.5 BUN/Creatinine Ratio 13 (6-20) Glucose Level 121 mg/dL (70-99) Calcium Level 8.7 mg/dL (8.5-10.1) Magnesium Level 1.7 mg/dL (1.8-2.4) Total Bilirubin 0.4 mg/dL (0.2-1.0) Aspartate Amino Transf (AST/SGOT) 33 U/L (15-37) Alanine Aminotransferase (ALT/SGPT) 43 U/L (16-63) Alkaline Phosphatase 158 U/L (46-116) Creatine Kinase 217 U/L (39-308) Troponin I Quantitative 0.021 ng/mL (0.000-0.055) ID-Dgq-[id number]-Type Natriuretic Peptide 31616 pg/mL (0-124) Total Protein 7.6 g/dL (6.4-8.2) Albumin 2.7 g/dL (3.4-5.0) Albumin/Globulin Ratio 0.6 (1.0-1.7) Urine Opiates Screen Neg (NEG) Urine Methadone Screen Neg (NEG) Urine Barbiturates Neg (NEG) Urine Phencyclidine Screen Neg (NEG) Urine Amphetamine/Methamphetamine Neg (NEG) Urine Benzodiazepines Screen Neg (NEG) Urine Cocaine Screen Neg (NEG) Urine Cannabinoids Screen Neg (NEG) Urine Ethyl Alcohol Neg (NEG) Laboratory Tests Test 09/03/18 08:00 09/03/18 08:10 White Blood Count 5.5 x10^3/uL (4.0-11.0) Red Blood Count 4.56 x10^6/uL (4.30-5.70) Hemoglobin 12.0 g/dL (13.0-17.5) Hematocrit 38.4 % (39.0-53.0) Mean Corpuscular Volume 84 fL (79-100) Mean Corpuscular Hemoglobin 26 pg (25-35) Mean Corpuscular Hemoglobin Concent 31 g/dL (31-37) Red Cell Distribution Width 21.6 % (11.5-14.5) Platelet Count 381 x10^3/uL (140-400) Neutrophils (%) (Auto) 51 % (31-73) Lymphocytes (%) (Auto) 41 % (24-48) Monocytes (%) (Auto) 6 % (0-9) Eosinophils (%) (Auto) 2 % (0-3) Basophils (%) (Auto) 1 % (0-3) Neutrophils # (Auto) 2.8 x10^3/uL (1.8-7.7) Lymphocytes # (Auto) 2.2 x10^3/uL (1.0-4.8) Monocytes # (Auto) 0.3 x10^3/uL (0.0-1.1) Eosinophils # (Auto) 0.1 x10^3/uL (0.0-0.7) Basophils # (Auto) 0.1 x10^3/uL (0.0-0.2) Prothrombin Time 13.9 SEC (11.7-14.0) Prothromb Time International Ratio 1.1 (0.8-1.1) Sodium Level 135 mmol/L (136-145) Potassium Level 3.8 mmol/L (3.5-5.1) Chloride Level 102 mmol/L (98-107) Carbon Dioxide Level 23 mmol/L (21-32) Anion Gap 10 (6-14) Blood Urea Nitrogen 21 mg/dL (8-26) Creatinine 1.6 mg/dL (0.7-1.3) Estimated GFR (Cockcroft-Gault) 58.5 BUN/Creatinine Ratio 13 (6-20) Glucose Level 121 mg/dL (70-99) Calcium Level 8.7 mg/dL (8.5-10.1) Magnesium Level 1.7 mg/dL (1.8-2.4) Total Bilirubin 0.4 mg/dL (0.2-1.0) Aspartate Amino Transf (AST/SGOT) 33 U/L (15-37) Alanine Aminotransferase (ALT/SGPT) 43 U/L (16-63) Alkaline Phosphatase 158 U/L (46-116) Creatine Kinase 217 U/L (39-308) Troponin I Quantitative 0.021 ng/mL (0.000-0.055) NR-Fjg-I-Type Natriuretic Peptide 79181 pg/mL (0-124) Total Protein 7.6 g/dL (6.4-8.2) Albumin 2.7 g/dL (3.4-5.0) Albumin/Globulin Ratio 0.6 (1.0-1.7) Urine Opiates Screen Neg (NEG) Urine Methadone Screen Neg (NEG) Urine Barbiturates Neg (NEG) Urine Phencyclidine Screen Neg (NEG) Urine Amphetamine/Methamphetamine Neg (NEG) Urine Benzodiazepines Screen Neg (NEG) Urine Cocaine Screen Neg (NEG) Urine Cannabinoids Screen Neg (NEG) Urine Ethyl Alcohol Neg (NEG) Images Images Echo - 06/23/18 The Left Ventricle is mild to moderately dilated. Left ventricle systolic function is severely impaired. The Ejection Fraction is estimated at 20%. There is severe global hypokinesis of the left ventricle. There is no significant aortic valvular stenosis. Doppler and Color Flow revealed trace aortic regurgitation. Doppler and Color-flow revealed moderately severe mitral regurgitation. Doppler and Color Flow revealed moderate tricuspid regurgitation. The PA pressure was estimated at 60 mmHg. STRESS TEST - 04/20/18 Conclusion 1. Regadenoson cardioisotope stress test showed large infarct involving the mid to distal anterior wall and the entire apical wall with small amount of helen-in farct ischemia. 2. Severe hypokinesis of the distal anterior wall and akinetic apical wall with ejection fraction calculated at 34%. 3. Low to intermediate risk for cardiac events. HEART CATH - 08/02/2016 Findings. Hemodynamics. Aortic pressure 110/60. Coronaries. Left main. The left was a short vessel with no lesions. Left anterior descending. The LAD was a large vessel with a mid total occlusion. Left circumflex. The left circumflex was a moderate size vessel with distal small vessel disease. Right coronary artery. Right coronary was a moderate-sized vessel with a proximal 25% lesion. <Conclusion> ST elevated myocardial infarction secondary to an occluded mid left anterior descending vessel. Successful stenting of the LAD occlusion with a 3.5 x 28 bare metal stent with residual lesion of 0%. Mild disease in the right coronary artery and left circumflex vessels. VTE Prophylaxis Ordered VTE Prophylaxis Devices: No VTE Pharmacological Prophylaxi: Yes Assessment/Plan Assessment/Plan A/P: Acute encephalopathy - likely 2/2 toxicity of benadryl, will keep him telemetry. Acute on chronic diastolic/systolic CHF - BNP 98708, CXR showing classic interstitial pattern, symptomatic. EF 20%. Will diurese. Consult cardiology Hypomagnesemia - will treat with IV, check daily K and mag Acute bronchitis - will treat acutely. EKG consistent with poor r wave progression indicating respiratory disease CKD - baseline is 1.6. Will monitor Alcohol abuse - at least 2 cups of vodka daily Methamphetamine abuse - counseled on cessation, u tox pending CAD - past stent to LAD HTN - controlled HIV - on HAART per PCP HLD - needs statin therapy FEN - Cardiac diet PPX - Heparin FULL CODE Dispo - Inpatient CVC for acute CHF exacerbation SYLVIA PASTOR MD Sep 03, 2018 09:00
[2018-09-03 09:25] LABS: ANISOCYTOSIS PRESENT; PLT ESTIMATE ADEQUATE (ADEQUATE); POLYCHROMASIA PRESENT
[2018-09-03 09:26] LABS: OVALOCYTES PRESENT
[2018-09-03 09:55] VITALS: BP 147/115
[2018-09-03] MEDS ORDERED: ATORVASTATIN CA80 MG PO (10:16)
[2018-09-03] MEDS ORDERED: ONDANSETRON PF 4 MG/2 ML VIAL. IV PRN (10:30)
[2018-09-03] MEDS ORDERED: ACETAMINOPHEN 500 MG TABLET PO PRN (10:30)
[2018-09-03] MEDS ORDERED: POLYETHYLENE GLYCOL 3350 17 GM PACKET. PO PRN (10:30)
[2018-09-03] MEDS: BUDESONIDE 0.5 MG/2 ML NEBU. NEB SCH ×2 (11:00→19:27)
[2018-09-03] MEDS: CARVEDILOL 6.25 MG TABLET. PO SCH ×2 (11:19→17:24)
[2018-09-03] MEDS: SACUBITRIL/VALSARTAN 24/26MG TABLET. PO SCH ×2 (11:19→20:40)
[2018-09-03] MEDS: ASPIRIN ENTERIC COATED 81 MG TABLET.DR. PO SCH (11:19)
[2018-09-03] MEDS: PARoxetine 20 MG TABLET PO SCH (11:19)
[2018-09-03] MEDS: IPRATRPIUM/ALBUTEROL 0.5/2.5MG 3 ML NEBU. NEB SCH ×3 (12:00→19:27)
--- NOTE | 2018-09-03 12:03 | EKG ---
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
[2018-09-03] MEDS: FUROSEMIDE 40 MG/4 ML VIAL. IVP SCH (14:52)
[2018-09-03 15:00] VITALS: BP 120/77
--- NOTE | 2018-09-03 15:00 | PDOC2 ---
CONSULT Date of Consult Date of Consult DATE: 09/03/18 TIME: 14:53 Reason for Consult Reason for Consult: Acute on chronic systolic heart failure Referring Physician Referring Physician: Dr. Burgos Identification/Chief Complaint Chief Complaint Shortness of breath Source Source: Chart review History of Present Illness Reason for Visit: The patient is a 38-year-old male with a history of systolic heart failure, coronary artery disease and asthma who was admitted through the emergency room last with decreased level of consciousness and shortness of breath. Patient had taken an estimated 150 mg of Benadryl. He also reports 7-10 days of gradually increasing shortness of breath. He did take an increased dose of Lasix several days ago which was minimally effective. Overnight the patient has been monitored and his rhythm has remained in sinus. He has been diuresed. He is more comfortable this morning. He has a significant cardiac history including a catheterization on in which a mid LAD occlusion was stented with a 3.5 x 28 bare metal stent. No other significant lesions were identified. A MPI test on 04/20/18 showed a large fixed infarct in the apical regions with some helen-inf arction ischemia. Echocardiogram on 06/23/18 showed an ejection fraction of 20% with moderate to severe mitral regurgitation and a pulmonary artery pressure elevated at 60 mmHg. He has been treated medically. He has a history of methamphetamine use. He reports that he has stopped this but his started to drink alcohol on a daily basis. Past Medical History Cardiovascular: CAD, CHF, HTN, [place], Hyperlipidemia, Valve insufficiency Pulmonary: Asthma Psych: Anxiety Musculoskeletal: Other Rheumatologic: No pertinent hx Infectious disease: No pertinent hx, Other Renal/: No pertinent hx Endocrine: No pertinent hx Past Surgical History Past Surgical History: Other (LAD coronary stent placement.) Family History Family History: Coronary Artery Disease Social History Quit (reports recently discontinuing) ALCOHOL: other (2 alcoholic drinks per day as per patient report) Drugs: Crystal meth Lives: with Family Current Problem List Problem List Problems Medical Problems: (1) Acute exacerbation of CHF (congestive heart failure) Status: Acute (2) Hypomagnesemia Status: Acute (3) Renal insufficiency Status: Acute (4) Respiratory distress Status: Acute Current Medications Current Medications Current Medications Furosemide (Lasix) 40 mg 1X ONCE IVP Last administered on 09/03/18at 08:50; Start 09/03/18 at 08:45; Stop 09/03/18 at 08:46; Status DC Methylprednisolone Sodium Succinate (SOLU-Medrol 125MG VIAL) 125 mg 1X ONCE IV Last administered on 09/03/18at 08:51; Start 09/03/18 at 08:45; Stop 09/03/18 at 08:46; Status DC Albuterol/ Ipratropium (Duoneb) 3 ml 1X ONCE NEB Last administered on 09/03/18at 09:05; Start 09/03/18 at 08:45; Stop 09/03/18 at 08:46; Status DC Magnesium Sulfate 50 ml @ 25 mls/hr 1X ONCE IV Last administered on 09/03/18at 11:19; Start 09/03/18 at 09:00; Stop 09/03/18 at 10:59; Status DC Aspirin (Ecotrin) 81 mg DAILY PO Last administered on 09/03/18at 11:19; Start 09/03/18 at 11:00 Carvedilol (Coreg) 6.25 mg BIDWMEALS PO Last administered on 09/03/18at 11:19; Start 09/03/18 at 11:00 Atorvastatin Calcium (Lipitor) 80 mg QHS PO ; Start 09/03/18 at 21:00 Non-Formulary Medication (Efavirenz/ Emtricitab/ Tenofovir (Atripla Tablet)) 1 each DAILY PO ; Start 09/04/18 at 09:00; Status UNV Paroxetine HCl (Paxil) 40 mg DAILY PO Last administered on 09/03/18at 11:19; Start 09/03/18 at 11:00 Sacubitril/ Valsartan (Entresto 24 Mg-26 Mg) 1 tab BID PO Last administered on 09/03/18at 11:19; Start 09/03/18 at 11:00 Furosemide (Lasix) 40 mg BID92 IVP ; Start 09/03/18 at 14:00 Albuterol/ Ipratropium (Duoneb) 3 ml RTQID NEB ; Start 09/03/18 at 12:00 Budesonide (Pulmicort) 0.5 mg RTBID NEB ; Start 09/03/18 at 11:00 Prednisone (Prednisone) 20 mg DAILY PO ; Start 09/04/18 at 09:00 Ondansetron HCl (Zofran) 4 mg PRN Q6HRS PRN IV NAUSEA/VOMITING; Start 09/03/18 at 10:30 Acetaminophen (Tylenol) 500 mg PRN Q6HRS PRN PO MILD PAIN / TEMP; Start 09/03/18 at 10:30 Polyethylene Glycol (miraLAX PACKET) 17 gm PRN DAILY PRN PO CONSTIPATION; Start 09/03/18 at 10:30 Active Scripts Active Carvedilol (Carvedilol) 6.25 Mg Tablet 6.25 Mg PO BIDWMEALS Lasix (Furosemide) 40 Mg Tablet 1 Tab PO DAILY Aspir 81 (Aspirin) 81 Mg Tablet. 1 Tab PO DAILY Reported Atorvastatin Calcium 80 Mg Tablet 1 Tab PO DAILY Entresto 24 mg-26 mg Tablet (Sacubitril/Valsartan) 1 Each Tablet 1 Each PO DAILY Paxil (Paroxetine Hcl) 40 Mg Tablet 40 Mg PO DAILY Atripla Tablet (Efavirenz/Emtricitab/Tenofovir) 1 Each Tablet 1 Each PO DAILY Allergies Allergies: Coded Allergies: No Known Drug Allergies (Unverified , 08/01/16) ROS General: YES: Fatigue Respiratory: YES: Shortness of breath, SOB with excertion Physical Exam General: mild distress HEENT: Atraumatic Lungs: Other (decreased breath sounds) Heart: Regular rate Abdomen: Normal bowel sounds Vitals VITALS Vital Signs Date Time Temp Pulse Resp B/P (MAP) Pulse Ox O2 Delivery O2 Flow Rate FiO2 09/03/18 11:19 101 147/115 09/03/18 09:55 Nasal Cannula 2.0 09/03/18 09:55 97.6 20 96 97.6 Labs Labs Laboratory Tests Test 09/03/18 08:00 09/03/18 08:10 White Blood Count 5.5 x10^3/uL (4.0-11.0) Red Blood Count 4.56 x10^6/uL (4.30-5.70) Hemoglobin 12.0 g/dL (13.0-17.5) Hematocrit 38.4 % (39.0-53.0) Mean Corpuscular Volume 84 fL (79-100) Mean Corpuscular Hemoglobin 26 pg (25-35) Mean Corpuscular Hemoglobin Concent 31 g/dL (31-37) Red Cell Distribution Width 21.6 % (11.5-14.5) Platelet Count 381 x10^3/uL (140-400) Neutrophils (%) (Auto) 51 % (31-73) Lymphocytes (%) (Auto) 41 % (24-48) Monocytes (%) (Auto) 6 % (0-9) Eosinophils (%) (Auto) 2 % (0-3) Basophils (%) (Auto) 1 % (0-3) Neutrophils # (Auto) 2.8 x10^3/uL (1.8-7.7) Lymphocytes # (Auto) 2.2 x10^3/uL (1.0-4.8) Monocytes # (Auto) 0.3 x10^3/uL (0.0-1.1) Eosinophils # (Auto) 0.1 x10^3/uL (0.0-0.7) Basophils # (Auto) 0.1 x10^3/uL (0.0-0.2) Platelet Estimate Adequate (ADEQUATE) Polychromasia Present Anisocytosis Present Macrocytosis Present Ovalocytes Present Prothrombin Time 13.9 SEC (11.7-14.0) Prothromb Time International Ratio 1.1 (0.8-1.1) Sodium Level 135 mmol/L (136-145) Potassium Level 3.8 mmol/L (3.5-5.1) Chloride Level 102 mmol/L (98-107) Carbon Dioxide Level 23 mmol/L (21-32) Anion Gap 10 (6-14) Blood Urea Nitrogen 21 mg/dL (8-26) Creatinine 1.6 mg/dL (0.7-1.3) Estimated GFR (Cockcroft-Gault) 58.5 BUN/Creatinine Ratio 13 (6-20) Glucose Level 121 mg/dL (70-99) Calcium Level 8.7 mg/dL (8.5-10.1) Magnesium Level 1.7 mg/dL (1.8-2.4) Total Bilirubin 0.4 mg/dL (0.2-1.0) Aspartate Amino Transf (AST/SGOT) 33 U/L (15-37) Alanine Aminotransferase (ALT/SGPT) 43 U/L (16-63) Alkaline Phosphatase 158 U/L (46-116) Creatine Kinase 217 U/L (39-308) Troponin I Quantitative 0.021 ng/mL (0.000-0.055) BI-Pml-M-Type Natriuretic Peptide 00538 pg/mL (0-124) Total Protein 7.6 g/dL (6.4-8.2) Albumin 2.7 g/dL (3.4-5.0) Albumin/Globulin Ratio 0.6 (1.0-1.7) Urine Opiates Screen Neg (NEG) Urine Methadone Screen Neg (NEG) Urine Barbiturates Neg (NEG) Urine Phencyclidine Screen Neg (NEG) Urine Amphetamine/Methamphetamine Neg (NEG) Urine Benzodiazepines Screen Neg (NEG) Urine Cocaine Screen Neg (NEG) Urine Cannabinoids Screen Neg (NEG) Urine Ethyl Alcohol Neg (NEG) Laboratory Tests Test 09/03/18 08:00 09/03/18 08:10 White Blood Count 5.5 x10^3/uL (4.0-11.0) Red Blood Count 4.56 x10^6/uL (4.30-5.70) Hemoglobin 12.0 g/dL (13.0-17.5) Hematocrit 38.4 % (39.0-53.0) Mean Corpuscular Volume 84 fL (79-100) Mean Corpuscular Hemoglobin 26 pg (25-35) Mean Corpuscular Hemoglobin Concent 31 g/dL (31-37) Red Cell Distribution Width 21.6 % (11.5-14.5) Platelet Count 381 x10^3/uL (140-400) Neutrophils (%) (Auto) 51 % (31-73) Lymphocytes (%) (Auto) 41 % (24-48) Monocytes (%) (Auto) 6 % (0-9) Eosinophils (%) (Auto) 2 % (0-3) Basophils (%) (Auto) 1 % (0-3) Neutrophils # (Auto) 2.8 x10^3/uL (1.8-7.7) Lymphocytes # (Auto) 2.2 x10^3/uL (1.0-4.8) Monocytes # (Auto) 0.3 x10^3/uL (0.0-1.1) Eosinophils # (Auto) 0.1 x10^3/uL (0.0-0.7) Basophils # (Auto) 0.1 x10^3/uL (0.0-0.2) Platelet Estimate Adequate (ADEQUATE) Polychromasia Present Anisocytosis Present Macrocytosis Present Ovalocytes Present Prothrombin Time 13.9 SEC (11.7-14.0) Prothromb Time International Ratio 1.1 (0.8-1.1) Sodium Level 135 mmol/L (136-145) Potassium Level 3.8 mmol/L (3.5-5.1) Chloride Level 102 mmol/L (98-107) Carbon Dioxide Level 23 mmol/L (21-32) Anion Gap 10 (6-14) Blood Urea Nitrogen 21 mg/dL (8-26) Creatinine 1.6 mg/dL (0.7-1.3) Estimated GFR (Cockcroft-Gault) 58.5 BUN/Creatinine Ratio 13 (6-20) Glucose Level 121 mg/dL (70-99) Calcium Level 8.7 mg/dL (8.5-10.1) Magnesium Level 1.7 mg/dL (1.8-2.4) Total Bilirubin 0.4 mg/dL (0.2-1.0) Aspartate Amino Transf (AST/SGOT) 33 U/L (15-37) Alanine Aminotransferase (ALT/SGPT) 43 U/L (16-63) Alkaline Phosphatase 158 U/L (46-116) Creatine Kinase 217 U/L (39-308) Troponin I Quantitative 0.021 ng/mL (0.000-0.055) FU-Mmn-U-Type Natriuretic Peptide 65273 pg/mL (0-124) Total Protein 7.6 g/dL (6.4-8.2) Albumin 2.7 g/dL (3.4-5.0) Albumin/Globulin Ratio 0.6 (1.0-1.7) Urine Opiates Screen Neg (NEG) Urine Methadone Screen Neg (NEG) Urine Barbiturates Neg (NEG) Urine Phencyclidine Screen Neg (NEG) Urine Amphetamine/Methamphetamine Neg (NEG) Urine Benzodiazepines Screen Neg (NEG) Urine Cocaine Screen Neg (NEG) Urine Cannabinoids Screen Neg (NEG) Urine Ethyl Alcohol Neg (NEG) Images Images Chest x-ray with mild heart failure. Assessment/Plan Assessment/Plan 1. Acute on chronic systolic heart failure. Recent echo shows an ejection fraction of 20% with moderately severe mitral regurgitation. Patient is mildly improved on increasing diuresis. We'll continue present medications with IV diuretics and close monitoring the patient's lab. 2. Coronary artery disease. Status post bare metal stent placement to the LAD in 2016. MPI testing in March of this year shows a large infarct with mild helen- infarction ischemia. We'll continue on medical treatment at this time. 3. Tobacco abuse. Patient reports discontinuing smoking one week ago. 4. Pulmonary hypertension. Continuing medical treatment. 5. Hypomagnesemia. Replace and monitor. 6. History of use of crystal meth. Patient reports discontinuing this practice but now is drinking alcohol on a regular basis. Thank you for allowing us to participate in the care of your patient. ALEXANDRA MATA MD Sep 03, 2018 15:00
[2018-09-03 19:59] VITALS: BP 100/65
[2018-09-03] MEDS ORDERED: ATORVASTATIN CALCIUM 40 MG TABLET. PO SCH (21:00)
[2018-09-03 22:50] VITALS: BP 107/73
[2018-09-04 03:13] VITALS: BP 132/79
[2018-09-04 04:26] LABS: CALCIUM 8.4 mg/dL (8.5-10.1); CREATININE 1.7 mg/dL (0.7-1.3); GFR 54.6; POTASSIUM 3.2 mmol/L (3.5-5.1)
[2018-09-04 07:00] VITALS: BP 124/89
[2018-09-04] MEDS: BUDESONIDE 0.5 MG/2 ML NEBU. NEB SCH (07:33)
[2018-09-04] MEDS: IPRATRPIUM/ALBUTEROL 0.5/2.5MG 3 ML NEBU. NEB SCH ×3 (07:33→15:50)
[2018-09-04] MEDS: ASPIRIN ENTERIC COATED 81 MG TABLET.DR. PO SCH (08:41)
[2018-09-04] MEDS: PARoxetine 20 MG TABLET PO SCH (08:41)
[2018-09-04] MEDS: FUROSEMIDE 40 MG/4 ML VIAL. IVP SCH ×2 (08:42→14:09)
[2018-09-04] MEDS: SACUBITRIL/VALSARTAN 24/26MG TABLET. PO SCH (08:42)
[2018-09-04] MEDS: CARVEDILOL 6.25 MG TABLET. PO SCH (08:42)
[2018-09-04] MEDS ORDERED: TENOFOVIR PO SCH (09:00)
[2018-09-04] MEDS ORDERED: EFAVIRENZ PO SCH (09:00)
[2018-09-04] MEDS ORDERED: predniSONE 20 MG TABLET PO SCH (09:00)
[2018-09-04] MEDS ORDERED: EMTRICITAB PO SCH (09:00)
--- NOTE | 2018-09-04 10:39 | PDOC ---
PROGRESS NOTES History of Present Illness History of Present Illness VTE Prophylaxis Ordered VTE Prophylaxis Devices: No VTE Pharmacological Prophylaxi: Yes Assessment/Plan A/P: Acute encephalopathy - cvc bed Acute on chronic diastolic/systolic CHF - BNP 19099,.///diurese. Severe hypokinesis of the distal anterior wall and akinetic apical wall with ejection fraction calculated at 34%. Left ventricle systolic function is severely impaired. echo 07/09 The Ejection Fraction is estimated at 20%. There is severe global hypokinesis of the left ventricle. There is no significant aortic valvular stenosis. Doppler and Color Flow revealed trace aortic regurgitation. Doppler and Color-flow revealed moderately severe mitral regurgitation. Doppler and Color Flow revealed moderate tricuspid regurgitation. The PA pressure was estimated at 60 mmHg. Mild prominent bilateral interstitial lung markings likely mild congestive changes. on cxr Consult cardiology Hypomagnesemia - replete //daily K and mag Acute bronchitis - acute with hypoxic resp failure CKD - baseline is 1.6. Alcohol abuse - 2 drinks vodka daily Methamphetamine abuse - CAD - past stent to LAD HTN - controlled HIV - on HAART per PCP HIV on HAART with unknown viral load or CD4 count Severe cardiomyopathy, EF 20% based on echo 07/10/18 HLD - statin therapy MPI testing in March 2018 shows a large infarct with mild helen-infarction ischemia. FEN - Cardiac diet PPX - Heparin FULL CODE Inpatient CVC/// acute CHF exacerbation poor short term prognosis per my chart review , etoh, meth abuse /// poor EF 39 min pt exam, chart review, > 50% of time spent with exam, chart review, pt care coordination Vitals Vitals Vital Signs Date Time Temp Pulse Resp B/P (MAP) Pulse Ox O2 Delivery O2 Flow Rate FiO2 09/04/18 08:42 95 09/04/18 08:00 Room Air 09/04/18 07:00 97.4 20 124/89 (101) 95 97.4 09/03/18 20:00 4.0 Physical Exam General: mild distress Heart: Regular rate Lungs: Clear Abdomen: Normal bowel sounds Extremities: No clubbing, No cyanosis, No edema, Normal pulses, No tendernes s/swelling Skin: No rashes, No breakdown, No significant lesion Labs LABS Pharm. Details Pharmacologic stress testing was performed using 0.4mg per 5ml of regadenoson given intravenously over 7-10 seconds. Stress Symptoms Nausea, stomach cramping, increased SOA from baseline POST EXERCISE Reason for Termination: Infusion complete Max HR: 106 bpm Max Blood Pressure: 133/95mmHg Blood Pressure response to exercise: Normal blood pressure response during stress. Heart Rate response to exercise: within normal limits Chest Pain: Yes. same as baseline Arrhythmia: No. ST Change: No. 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 No ischemic changes at peak stress. No arrhythmias. Imaging Protocol IMAGE PROTOCOL: Rest Tc-99m/stress Tc-99m 1 day Rest: Stress: Viability: Radiopharm. Tc99m Sestamibi Tc99m Sestamibi Dose 11mCi 30.6mCi Img Date 04/20/2018 04/20/2018 Inj-Img Time 45min. 60min. Rest Admin Site: IV - Left Antecubital Slot Machine Floor Person: JOSUE Mclaughlin, ARRT (R)(N) Stress Admin Site: IV - Left Antecubital Slot Machine Floor Person: Janette Lopez RT (R)(N) STRESS DATA End Diast. Vol. 275.0ml Av. Heart Rate 95.0bpm End Syst. Vol. 181.0ml CO Index BSA 0.0L/min Myocardial Mass 235.0g Eject. Fraction 34.0% Stress Rates Pk. Fill Rate 1.95EDV/sec LVtime Pk. Fill 54.53msec Pk. Empty Rate 2.41ESV/sec LVtime Pk. Eject 180.78msec 1/3 Pk. Fill 1.44EDV/sec Stress Scores Regional WT 3.00 Summed WT 43.00 Regional WM 2.00 Summed WM 24.00 LV Perfusion Scintigraphic images showed large predominantly fixed perfusion defect involving the mid to distal anterior wall and the entire apical wall consistent with previous myocardial infarction with small amount of reversibility consistent with helen-infarct ischemia. Wall Motion Severe hypokinesis of the distal anterior wall and akinetic apical wall with ejection fraction calculated at 34%. LV Perf. Quant 17 Seg. SSS 21.00 17 Seg. SRS 21.00 17 Seg. SDS 3.00 Stress Defect Extent (% LAD) 68.10 Rest Defect Extent (% LAD) 66.90 Rev. Defect Extent (% LAD) 26.30 Stress Defect Extent (% LCX) 10.00 Rest Defect Extent (% LCX) 6.30 Rev. Defect Extent (% LCX) 7.50 Stress Defect Extent (% RCA) 40.00 Rest Defect Extent (% RCA) 26.70 Rev. Defect Extent (% RCA) 2.20 Stress Defect Extent (% LUDA) 47.20 Rest Defect Extent (% LUDA) 43.70 Rev. Defect Extent (% LUDA) 14.80 Conclusion 1. Regadenoson cardioisotope stress test showed large infarct involving the mid to distal anterior wall and the entire apical wall with small amount of helen- infarct ischemia. 2. Severe hypokinesis of the distal anterior wall and akinetic apical wall with ejection fraction calculated at 34%. 3. Low to intermediate risk for cardiac events. Signed by : Adolfo Choi, Electronically Approved : 04/20/2018 13:29:08 Aortic Valve AoV Peak Ju[place]o. 110.0cm/s AoV VTI 14.9cm AO Peak GR. 4.8mmHg LVOT Peak Ju[place]o. 105.6cm/s LVOT VTI 14.19cm AO Mean GR. 3mmHg PEBBLES (VMAX) 3.23cm2 PEBBLES (VTI) 3.21cm2 Mitral Valve MV E Velocity 137.5cm/s MV E Peak Gr. 89mmHg MV DECEL TIME 116ms MV PHT 34ms MVA (PHT) 6.53cm2 TDI E/Lateral E' 36.7 E/Medial E' 28.6 Tricuspid Valve TR P. Velocity 359cm/s RAP ESTIMATE 15mmHg TR Peak Gr. 52mmHg RVSP 67mmHg LEFT VENTRICLE The Left Ventricle is mild to moderately dilated. There is normal left ventricular wall thickness. Left ventricle systolic function is severely im paired. The Ejection Fraction is estimated at 20%. There is severe global hypokinesis of the left ventricle. RIGHT VENTRICLE The right ventricle is mildly dilated. Systolic function is mildly reduced. ATRIA The left atrium is moderately dilated. The right atrium is moderately dilated. The interatrial septum is intact with no evidence for an atrial septal defect or patent foramen ovale as noted on 2-D or Doppler imaging. AORTIC VALVE The aortic valve is calcified but opens well. Doppler and Color Flow revealed trace aortic regurgitation. There is no significant aortic valvular stenosis. MITRAL VALVE The mitral valve is normal in structure and function. There is no evidence of mitral valve prolapse. There is no mitral valve stenosis. Doppler and Color-flow revealed moderately severe mitral regurgitation. TRICUSPID VALVE The tricuspid valve is normal in structure and function. Doppler and Color Flow revealed moderate tricuspid regurgitation. The PA pressure was estimated at 60 mmHg. There is no tricuspid valve stenosis. PULMONIC VALVE The pulmonary valve is normal in structure and function. Doppler and Color Flow revealed mild pulmonic valvular regurgitation. There is no pulmonic valvular stenosis. GREAT VESSELS The aortic root is normal in size. The ascending aorta is mildly dilated at 3.5 cm. The IVC is dilated and collapses <50% with inspiration. PERICARDIAL EFFUSION There is no evidence of significant pericardial effusion. Critical Notification Critical Value: No <Conclusion> The Left Ventricle is mild to moderately dilated. Left ventricle systolic function is severely impaired. The Ejection Fraction is estimated at 20%. There is severe global hypokinesis of the left ventricle. There is no significant aortic valvular stenosis. Doppler and Color Flow revealed trace aortic regurgitation. Doppler and Color-flow revealed moderately severe mitral regurgitation. Doppler and Color Flow revealed moderate tricuspid regurgitation. The PA pressure was estimated at 60 mmHg. Signed by : Alexandra Richey MD Electronically Approved : 06/23/2018 10:32:04 DICTATED and SIGNED BY: ALEXANDRA RICHEY MD DATE: 06/23/18 1032 EXAM: CHEST 1 VIEW History: Shortness of breath COMPARISON: 08/01/2018 TECHNIQUE: Single portable radiograph of the chest FINDINGS: Mild cardiomegaly. There is mild prominent appearing bilateral interstitial lung markings particularly in the perihilar region likely mild congestive changes. Impression: Mild prominent bilateral interstitial lung markings likely mild congestive changes. Electronically signed by: Leobardo Weiss MD (09/03/2018 8:46 AM) [facility] Laboratory Tests Test 09/04/18 03:31 Sodium Level 140 mmol/L (136-145) Potassium Level 3.2 mmol/L (3.5-5.1) Chloride Level 104 mmol/L (98-107) Carbon Dioxide Level 26 mmol/L (21-32) Anion Gap 10 (6-14) Blood Urea Nitrogen 20 mg/dL (8-26) Creatinine 1.7 mg/dL (0.7-1.3) Estimated GFR (Cockcroft-Gault) 54.6 Glucose Level 128 mg/dL (70-99) Calcium Level 8.4 mg/dL (8.5-10.1) Magnesium Level 2.0 mg/dL (1.8-2.4) Assessment and Plan Assessmemt and Plan Problems Medical Problems: (1) Acute encephalopathy Status: Acute (2) Acute exacerbation of CHF (congestive heart failure) Status: Acute (3) Hypomagnesemia Status: Acute (4) Renal insufficiency Status: Acute (5) Respiratory distress Status: Acute Comment Review of Relevant I have reviewed the following items nicolas (where applicable) has been applied. Labs Laboratory Tests Test 09/03/18 08:00 09/03/18 08:10 09/04/18 03:31 White Blood Count 5.5 x10^3/uL (4.0-11.0) Red Blood Count 4.56 x10^6/uL (4.30-5.70) Hemoglobin 12.0 g/dL (13.0-17.5) Hematocrit 38.4 % (39.0-53.0) Mean Corpuscular Volume 84 fL (79-100) Mean Corpuscular Hemoglobin 26 pg (25-35) Mean Corpuscular Hemoglobin Concent 31 g/dL (31-37) Red Cell Distribution Width 21.6 % (11.5-14.5) Platelet Count 381 x10^3/uL (140-400) Neutrophils (%) (Auto) 51 % (31-73) Lymphocytes (%) (Auto) 41 % (24-48) Monocytes (%) (Auto) 6 % (0-9) Eosinophils (%) (Auto) 2 % (0-3) Basophils (%) (Auto) 1 % (0-3) Neutrophils # (Auto) 2.8 x10^3/uL (1.8-7.7) Lymphocytes # (Auto) 2.2 x10^3/uL (1.0-4.8) Monocytes # (Auto) 0.3 x10^3/uL (0.0-1.1) Eosinophils # (Auto) 0.1 x10^3/uL (0.0-0.7) Basophils # (Auto) 0.1 x10^3/uL (0.0-0.2) Platelet Estimate Adequate (ADEQUATE) Polychromasia Present Anisocytosis Present Macrocytosis Present Ovalocytes Present Prothrombin Time 13.9 SEC (11.7-14.0) Prothromb Time International Ratio 1.1 (0.8-1.1) Sodium Level 135 mmol/L (136-145) 140 mmol/L (136-145) Potassium Level 3.8 mmol/L (3.5-5.1) 3.2 mmol/L (3.5-5.1) Chloride Level 102 mmol/L (98-107) 104 mmol/L (98-107) Carbon Dioxide Level 23 mmol/L (21-32) 26 mmol/L (21-32) Anion Gap 10 (6-14) 10 (6-14) Blood Urea Nitrogen 21 mg/dL (8-26) 20 mg/dL (8-26) Creatinine 1.6 mg/dL (0.7-1.3) 1.7 mg/dL (0.7-1.3) Estimated GFR (Cockcroft-Gault) 58.5 54.6 BUN/Creatinine Ratio 13 (6-20) Glucose Level 121 mg/dL (70-99) 128 mg/dL (70-99) Calcium Level 8.7 mg/dL (8.5-10.1) 8.4 mg/dL (8.5-10.1) Magnesium Level 1.7 mg/dL (1.8-2.4) 2.0 mg/dL (1.8-2.4) Total Bilirubin 0.4 mg/dL (0.2-1.0) Aspartate Amino Transf (AST/SGOT) 33 U/L (15-37) Alanine Aminotransferase (ALT/SGPT) 43 U/L (16-63) Alkaline Phosphatase 158 U/L (46-116) Creatine Kinase 217 U/L (39-308) Troponin I Quantitative 0.021 ng/mL (0.000-0.055) QW-Gzb-V-Type Natriuretic Peptide 52659 pg/mL (0-124) Total Protein 7.6 g/dL (6.4-8.2) Albumin 2.7 g/dL (3.4-5.0) Albumin/Globulin Ratio 0.6 (1.0-1.7) Urine Opiates Screen Neg (NEG) Urine Methadone Screen Neg (NEG) Urine Barbiturates Neg (NEG) Urine Phencyclidine Screen Neg (NEG) Urine Amphetamine/Methamphetamine Neg (NEG) Urine Benzodiazepines Screen Neg (NEG) Urine Cocaine Screen Neg (NEG) Urine Cannabinoids Screen Neg (NEG) Urine Ethyl Alcohol Neg (NEG) Laboratory Tests Test 09/04/18 03:31 Sodium Level 140 mmol/L (136-145) Potassium Level 3.2 mmol/L (3.5-5.1) Chloride Level 104 mmol/L (98-107) Carbon Dioxide Level 26 mmol/L (21-32) Anion Gap 10 (6-14) Blood Urea Nitrogen 20 mg/dL (8-26) Creatinine 1.7 mg/dL (0.7-1.3) Estimated GFR (Cockcroft-Gault) 54.6 Glucose Level 128 mg/dL (70-99) Calcium Level 8.4 mg/dL (8.5-10.1) Magnesium Level 2.0 mg/dL (1.8-2.4) Medications Current Medications Furosemide (Lasix) 40 mg 1X ONCE IVP Last administered on 09/03/18at 08:50; Start 09/03/18 at 08:45; Stop 09/03/18 at 08:46; Status DC Methylprednisolone Sodium Succinate (SOLU-Medrol 125MG VIAL) 125 mg 1X ONCE IV Last administered on 09/03/18at 08:51; Start 09/03/18 at 08:45; Stop 09/03/18 at 08:46; Status DC Albuterol/ Ipratropium (Duoneb) 3 ml 1X ONCE NEB Last administered on 09/03/18at 09:05; Start 09/03/18 at 08:45; Stop 09/03/18 at 08:46; Status DC Magnesium Sulfate 50 ml @ 25 mls/hr 1X ONCE IV Last administered on 09/03/18at 11:19; Start 09/03/18 at 09:00; Stop 09/03/18 at 10:59; Status DC Aspirin (Ecotrin) 81 mg DAILY PO Last administered on 09/04/18at 08:41; Start 09/03/18 at 11:00 Carvedilol (Coreg) 6.25 mg BIDWMEALS PO Last administered on 09/04/18at 08:42; Start 09/03/18 at 11:00 Atorvastatin Calcium (Lipitor) 80 mg QHS PO Last administered on 09/03/18at 20:39; Start 09/03/18 at 21:00 Non-Formulary Medication (Efavirenz/ Emtricitab/ Tenofovir (Atripla Tablet)) 1 each DAILY PO ; Start 09/04/18 at 09:00; Status UNV Paroxetine HCl (Paxil) 40 mg DAILY PO Last administered on 09/04/18 08:41; Start 09/03/18 at 11:00 Sacubitril/ Valsartan (Entresto 24 Mg-26 Mg) 1 tab BID PO Last administered on 09/04/18 08:42; Start 09/03/18 at 11:00 Furosemide (Lasix) 40 mg BID92 IVP Last administered on 09/04/18 08:42; Start 09/03/18 at 14:00 Albuterol/ Ipratropium (Duoneb) 3 ml RTQID NEB Last administered on 09/04/18 07:33; Start 09/03/18 at 12:00 Budesonide (Pulmicort) 0.5 mg RTBID NEB Last administered on 09/04/18 07:33; Start 09/03/18 at 11:00 Prednisone (Prednisone) 20 mg DAILY PO Last administered on 09/04/18at 08:41; Start 09/04/18 at 09:00 Ondansetron HCl (Zofran) 4 mg PRN Q6HRS PRN IV NAUSEA/VOMITING; Start 09/03/18 at 10:30 Acetaminophen (Tylenol) 500 mg PRN Q6HRS PRN PO MILD PAIN / TEMP; Start 09/03/18 at 10:30 Polyethylene Glycol (miraLAX PACKET) 17 gm PRN DAILY PRN PO CONSTIPATION; Start 09/03/18 at 10:30 Active Scripts Active Carvedilol (Carvedilol) 6.25 Mg Tablet 6.25 Mg PO BIDWMEALS Lasix (Furosemide) 40 Mg Tablet 1 Tab PO DAILY Aspir 81 (Aspirin) 81 Mg Tablet. 1 Tab PO DAILY Reported Atorvastatin Calcium 80 Mg Tablet 1 Tab PO DAILY Entresto 24 mg-26 mg Tablet (Sacubitril/Valsartan) 1 Each Tablet 1 Each PO DAILY Paxil (Paroxetine Hcl) 40 Mg Tablet 40 Mg PO DAILY Atripla Tablet (Efavirenz/Emtricitab/Tenofovir) 1 Each Tablet 1 Each PO DAILY Vitals/I & O Vital Sign - Last 24 Hours 7/09/03/18 09/03/18 09/03/18 11:19 11:19 15:00 16:15 Temp 97.4 97.4 Pulse 101 101 103 Resp 18 B/P (MAP) 147/115 147/115 120/77 (91) Pulse Ox 98 99 O2 Delivery Room Air Nasal Cannula O2 Flow Rate 4.0 09/03/18 09/03/18 09/03/18 09/03/18 17:24 19:28 19:59 20:00 Temp 98.0 98.0 Pulse 103 98 Resp 18 B/P (MAP) 120/77 100/65 (77) Pulse Ox 100 97 O2 Delivery Room Air Room Air Nasal Cannula O2 Flow Rate 4.0 09/03/18 09/03/18 09/04/18 09/04/18 20:40 22:50 03:13 07:00 Temp 98.1 97.4 97.4 98.1 97.4 97.4 Pulse 98 96 85 102 Resp 18 18 20 B/P (MAP) 100/65 107/73 (84) 132/79 (96) 124/89 (101) Pulse Ox 96 97 95 O2 Delivery Room Air Room Air Room Air 09/04/18 09/04/18 09/04/18 09/04/18 07:34 08:00 08:42 08:42 Pulse 95 95 O2 Delivery Room Air Room Air Intake and Output 09/03/18 09/03/18 09/04/18 15:00 23:00 07:00 Intake Total 180 ml 200 ml Output Total 1800 ml Balance -1800 ml 180 ml 200 ml ROB MCLAIN MD Sep 04, 2018 10:39
[2018-09-04 11:00] VITALS: BP 119/85
[2018-09-04] MEDS ORDERED: POTASSIUM CHLORIDE 20 MEQ TABLET.ER. PO ONE ×3 (11:00→14:45)
--- NOTE | 2018-09-04 14:08 | NUR ---
SS following for discharge planning. SS reviewed pt chart. Pt is from home and is currently on room air. No discharge needs noted at this time. SS will continue to follow for discharge planning.
--- NOTE | 2018-09-04 14:51 | PDOC3 ---
Discharge Summary Date of Admission: Sep 03, 2018 Date of Discharge: Sep 04, 2018 Follow-Up: 3-5 days Admitting Diagnosis comment: discharge dx A/P: Acute encephalopathy - cvc bed encephalopathy resolved 09/04 wants to go home Acute on chronic diastolic/systolic CHF - BNP 64479,.///diurese. Severe hypokinesis of the distal anterior wall and akinetic apical wall with ejection fraction calculated at 34%. Left ventricle systolic function is severely impaired. echo 07/09 The Ejection Fraction is estimated at 20%. There is severe global hypokinesis of the left ventricle. There is no significant aortic valvular stenosis. Doppler and Color Flow revealed trace aortic regurgitation. Doppler and Color-flow revealed moderately severe mitral regurgitation. Doppler and Color Flow revealed moderate tricuspid regurgitation. The PA pressure was estimated at 60 mmHg. Mild prominent bilateral interstitial lung markings likely mild congestive changes. on cxr Consult cardiology Hypomagnesemia - replete //daily K and mag Acute bronchitis - acute with hypoxic resp failure CKD - baseline is 1.6. Alcohol abuse - 2 drinks vodka daily Methamphetamine abuse - CAD - past stent to LAD HTN - controlled HIV - on HAART per PCP HIV on HAART with unknown viral load or CD4 count Severe cardiomyopathy, EF 20% based on echo 07/10/18 HLD - statin therapy MPI testing in March 2018 shows a large infarct with mild helen-infarction ischemia. FEN - Cardiac diet PPX - Heparin FULL CODE Inpatient CVC/// acute CHF exacerbation poor short term prognosis per my chart review , etoh, meth abuse /// poor EF 39 min pt exam, chart review d/c planning, > 50% of time spent with exam, chart review, pt care coordination Vitals Vitals Vital Signs Date Time Temp Pulse Resp B/P (MAP) Pulse Ox O2 Delivery O2 Flow Rate FiO2 09/04/18 08:42 95 09/04/18 08:00 Room Air 09/04/18 07:00 97.4 20 124/89 (101) 95 97.4 09/03/18 20:00 4.0 Physical Exam General: mild distress Heart: Regular rate Lungs: Clear Abdomen: Normal bowel sounds Extremities: No clubbing, No cyanosis, No edema, Normal pulses, No tenderness/swelling Skin: No rashes, No breakdown, No significant lesion Labs LABS Pharm. Details Pharmacologic stress testing was performed using 0.4mg per 5ml of regadenoson given intravenously over 7-10 seconds. Stress Symptoms Nausea, stomach cramping, increased SOA from baseline POST EXERCISE Reason for Termination: Infusion complete Max HR: 106 bpm Max Blood Pressure: 133/95mmHg Blood Pressure response to exercise: Normal blood pressure response during stress. Heart Rate response to exercise: within normal limits Chest Pain: Yes. same as baseline Arrhythmia: No. ST Change: No. 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 No ischemic changes at peak stress. No arrhythmias. Imaging Protocol IMAGE PROTOCOL: Rest Tc-99m/stress Tc-99m 1 day Rest: Stress: Viability: Radiopharm. Tc99m Sestamibi Tc99m Sestamibi Dose 11mCi 30.6mCi Img Date 04/20/2018 04/20/2018 Inj-Img Time 45min. 60min. Rest Admin Site: IV - Left Antecubital Manager Dialysis: JOSUE Mclaughlin ARRT (R)(N) Stress Admin Site: IV - Left Antecubital Manager Dialysis: Janette Lopez RT (R)(N) STRESS DATA End Diast. Vol. 275.0ml Av. Heart Rate 95.0bpm End Syst. Vol. 181.0ml CO Index BSA 0.0L/min Myocardial Mass 235.0g Eject. Fraction 34.0% Stress Rates Pk. Fill Rate 1.95EDV/sec LVtime Pk. Fill 54.53msec Pk. Empty Rate 2.41ESV/sec LVtime Pk. Eject 180.78msec 1/3 Pk. Fill 1.44EDV/sec Stress Scores Regional WT 3.00 Summed WT 43.00 Regional WM 2.00 Summed WM 24.00 LV Perfusion Scintigraphic images showed large predominantly fixed perfusion defect involving the mid to distal anterior wall and the entire apical wall consistent with previous myocardial infarction with small amount of reversibility consistent with helen-infarct ischemia. Wall Motion Severe hypokinesis of the distal anterior wall and akinetic apical wall with ejection fraction calculated at 34%. LV Perf. Quant 17 Seg. SSS 21.00 17 Seg. SRS 21.00 17 Seg. SDS 3.00 Stress Defect Extent (% LAD) 68.10 Rest Defect Extent (% LAD) 66.90 Rev. Defect Extent (% LAD) 26.30 Stress Defect Extent (% LCX) 10.00 Rest Defect Extent (% LCX) 6.30 Rev. Defect Extent (% LCX) 7.50 Stress Defect Extent (% RCA) 40.00 Rest Defect Extent (% RCA) 26.70 Rev. Defect Extent (% RCA) 2.20 Stress Defect Extent (% LUDA) 47.20 Rest Defect Extent (% LUDA) 43.70 Rev. Defect Extent (% LUDA) 14.80 Conclusion 1. Regadenoson cardioisotope stress test showed large infarct involving the mid to distal anterior wall and the entire apical wall with small amount of helen- infarct ischemia. 2. Severe hypokinesis of the distal anterior wall and akinetic apical wall with ejection fraction calculated at 34%. 3. Low to intermediate risk for cardiac events. Signed by : Adolfo Choi, Electronically Approved : 04/20/2018 13:29:08 Aortic Valve AoV Peak [place]. 110.0cm/s AoV VTI 14.9cm AO Peak GR. 4.8mmHg LVOT Peak [place]. 105.6cm/s LVOT VTI 14.19cm AO Mean GR. 3mmHg PEBBLES (VMAX) 3.23cm2 PEBBLES (VTI) 3.21cm2 Mitral Valve MV E Velocity 137.5cm/s MV E Peak Gr. 89mmHg MV DECEL TIME 116ms MV PHT 34ms MVA (PHT) 6.53cm2 TDI E/Lateral E' 36.7 E/Medial E' 28.6 Tricuspid Valve TR P. Velocity 359cm/s RAP ESTIMATE 15mmHg TR Peak Gr. 52mmHg RVSP 67mmHg LEFT VENTRICLE The Left Ventricle is mild to moderately dilated. There is normal left ventricular wall thickness. Left ventricle systolic function is severely impaired. The Ejection Fraction is estimated at 20%. There is severe global hypokinesis of the left ventricle. RIGHT VENTRICLE The right ventricle is mildly dilated. Systolic function is mildly reduced. ATRIA The left atrium is moderately dilated. The right atrium is moderately dilated. The interatrial septum is intact with no evidence for an atrial septal defect or patent foramen ovale as noted on 2-D or Doppler imaging. AORTIC VALVE The aortic valve is calcified but opens well. Doppler and Color Flow revealed trace aortic regurgitation. There is no significant aortic valvular stenosis. MITRAL VALVE The mitral valve is normal in structure and function. There is no evidence of mitral valve prolapse. There is no mitral valve stenosis. Doppler and Color-flow revealed moderately severe mitral regurgitation. TRICUSPID VALVE The tricuspid valve is normal in structure and function. Doppler and Color Flow revealed moderate tricuspid regurgitation. The PA pressure was estimated at 60 mmHg. There is no tricuspid valve stenosis. PULMONIC VALVE The pulmonary valve is normal in structure and function. Doppler and Color Flow revealed mild pulmonic valvular regurgitation. There is no pulmonic valvular stenosis. GREAT VESSELS The aortic root is normal in size. The ascending aorta is mildly dilated at 3.5 cm. The IVC is dilated and collapses <50% with inspiration. PERICARDIAL EFFUSION There is no evidence of significant pericardial effusion. Critical Notification Critical Value: No <Conclusion> The Left Ventricle is mild to moderately dilated. Left ventricle systolic function is severely impaired. The Ejection Fraction is estimated at 20%. There is severe global hypokinesis of the left ventricle. There is no significant aortic valvular stenosis. Doppler and Color Flow revealed trace aortic regurgitation. Doppler and Color-flow revealed moderately severe mitral regurgitation. Doppler and Color Flow revealed moderate tricuspid regurgitation. The PA pressure was estimated at 60 mmHg. Signed by : Jimmie Richey MD Electronically Approved : 06/23/2018 10:32:04 FINAL DIAGNOSIS Problems Medical Problems: (1) Acute encephalopathy Status: Acute (2) Acute exacerbation of CHF (congestive heart failure) Status: Acute (3) Hypomagnesemia Status: Acute (4) Renal insufficiency Status: Acute (5) Respiratory distress Status: Acute Brief Hospital Course Mr. Perera is a 38 old [sex] who presented with [ acute encephalopathy] CONDITION AT DISCHARGE: Improved, Comment (poor prognosis) Discharge Medications Current Medications Furosemide (Lasix) 40 mg 1X ONCE IVP Last administered on 09/03/18at 08:50; Start 09/03/18 at 08:45; Stop 09/03/18 at 08:46; Status DC Methylprednisolone Sodium Succinate (SOLU-Medrol 125MG VIAL) 125 mg 1X ONCE IV Last administered on 09/03/18at 08:51; Start 09/03/18 at 08:45; Stop 09/03/18 at 08:46; Status DC Albuterol/ Ipratropium (Duoneb) 3 ml 1X ONCE NEB Last administered on 09/03/18at 09:05; Start 09/03/18 at 08:45; Stop 09/03/18 at 08:46; Status DC Magnesium Sulfate 50 ml @ 25 mls/hr 1X ONCE IV Last administered on 09/03/18 11:19; Start 09/03/18 at 09:00; Stop 09/03/18 at 10:59; Status DC Aspirin (Ecotrin) 81 mg DAILY PO Last administered on 09/04/18 08:41; Start 09/03/18 at 11:00 Carvedilol (Coreg) 6.25 mg BIDWMEALS PO Last administered on 09/04/18 08:42; Start 09/03/18 at 11:00 Atorvastatin Calcium (Lipitor) 80 mg QHS PO Last administered on 09/03/18 20:39; Start 09/03/18 at 21:00 Non-Formulary Medication (Efavirenz/ Emtricitab/ Tenofovir (Atripla Tablet)) 1 each DAILY PO ; Start 09/04/18 at 09:00; Status UNV Paroxetine HCl (Paxil) 40 mg DAILY PO Last administered on 09/04/18 08:41; Start 09/03/18 at 11:00 Sacubitril/ Valsartan (Entresto 24 Mg-26 Mg) 1 tab BID PO Last administered on 09/04/18 08:42; Start 09/03/18 at 11:00 Furosemide (Lasix) 40 mg BID92 IVP Last administered on 09/04/18 14:09; Start 09/03/18 at 14:00 Albuterol/ Ipratropium (Duoneb) 3 ml RTQID NEB Last administered on 09/04/18 11:14; Start 09/03/18 at 12:00 Budesonide (Pulmicort) 0.5 mg RTBID NEB Last administered on 09/04/18 07:33; Start 09/03/18 at 11:00 Prednisone (Prednisone) 20 mg DAILY PO Last administered on 09/04/18 08:41; Start 09/04/18 at 09:00 Ondansetron HCl (Zofran) 4 mg PRN Q6HRS PRN IV NAUSEA/VOMITING; Start 09/03/18 at 10:30 Acetaminophen (Tylenol) 500 mg PRN Q6HRS PRN PO MILD PAIN / TEMP; Start 09/03/18 at 10:30 Polyethylene Glycol (miraLAX PACKET) 17 gm PRN DAILY PRN PO CONSTIPATION; Start 09/03/18 at 10:30 Potassium Chloride (Klor-Con) 40 meq 1X ONCE PO Last administered on 09/04/18at 11:05; Start 09/04/18 at 11:00; Stop 09/04/18 at 11:01; Status DC Potassium Chloride (Klor-Con) 40 meq 1X ONCE PO Last administered on 09/04/18at 14:08; Start 09/04/18 at 13:45; Stop 09/04/18 at 13:48; Status DC Active Scripts Active Carvedilol (Carvedilol) 6.25 Mg Tablet 6.25 Mg PO BIDWMEALS Lasix (Furosemide) 40 Mg Tablet 1 Tab PO DAILY Aspir 81 (Aspirin) 81 Mg Tablet.dr 1 Tab PO DAILY Reported Atorvastatin Calcium 80 Mg Tablet 1 Tab PO DAILY Entresto 24 mg-26 mg Tablet (Sacubitril/Valsartan) 1 Each Tablet 1 Each PO DAILY Paxil (Paroxetine Hcl) 40 Mg Tablet 40 Mg PO DAILY Atripla Tablet (Efavirenz/Emtricitab/Tenofovir) 1 Each Tablet 1 Each PO DAILY Vital Signs Vital Signs Date Time Temp Pulse Resp B/P (MAP) Pulse Ox O2 Delivery O2 Flow Rate FiO2 09/04/18 11:15 Room Air 09/04/18 11:00 97.7 98 18 119/85 (96) 99 97.7 09/03/18 20:00 4.0 Labs Laboratory Tests Test 09/03/18 08:00 09/03/18 08:10 09/04/18 03:31 White Blood Count 5.5 x10^3/uL (4.0-11.0) Red Blood Count 4.56 x10^6/uL (4.30-5.70) Hemoglobin 12.0 g/dL (13.0-17.5) Hematocrit 38.4 % (39.0-53.0) Mean Corpuscular Volume 84 fL (79-100) Mean Corpuscular Hemoglobin 26 pg (25-35) Mean Corpuscular Hemoglobin Concent 31 g/dL (31-37) Red Cell Distribution Width 21.6 % (11.5-14.5) Platelet Count 381 x10^3/uL (140-400) Neutrophils (%) (Auto) 51 % (31-73) Lymphocytes (%) (Auto) 41 % (24-48) Monocytes (%) (Auto) 6 % (0-9) Eosinophils (%) (Auto) 2 % (0-3) Basophils (%) (Auto) 1 % (0-3) Neutrophils # (Auto) 2.8 x10^3/uL (1.8-7.7) Lymphocytes # (Auto) 2.2 x10^3/uL (1.0-4.8) Monocytes # (Auto) 0.3 x10^3/uL (0.0-1.1) Eosinophils # (Auto) 0.1 x10^3/uL (0.0-0.7) Basophils # (Auto) 0.1 x10^3/uL (0.0-0.2) Platelet Estimate Adequate (ADEQUATE) Polychromasia Present Anisocytosis Present Macrocytosis Present Ovalocytes Present Prothrombin Time 13.9 SEC (11.7-14.0) Prothromb Time International Ratio 1.1 (0.8-1.1) Sodium Level 135 mmol/L (136-145) 140 mmol/L (136-145) Potassium Level 3.8 mmol/L (3.5-5.1) 3.2 mmol/L (3.5-5.1) Chloride Level 102 mmol/L (98-107) 104 mmol/L (98-107) Carbon Dioxide Level 23 mmol/L (21-32) 26 mmol/L (21-32) Anion Gap 10 (6-14) 10 (6-14) Blood Urea Nitrogen 21 mg/dL (8-26) 20 mg/dL (8-26) Creatinine 1.6 mg/dL (0.7-1.3) 1.7 mg/dL (0.7-1.3) Estimated GFR (Cockcroft-Gault) 58.5 54.6 BUN/Creatinine Ratio 13 (6-20) Glucose Level 121 mg/dL (70-99) 128 mg/dL (70-99) Calcium Level 8.7 mg/dL (8.5-10.1) 8.4 mg/dL (8.5-10.1) Magnesium Level 1.7 mg/dL (1.8-2.4) 2.0 mg/dL (1.8-2.4) Total Bilirubin 0.4 mg/dL (0.2-1.0) Aspartate Amino Transf (AST/SGOT) 33 U/L (15-37) Alanine Aminotransferase (ALT/SGPT) 43 U/L (16-63) Alkaline Phosphatase 158 U/L (46-116) Creatine Kinase 217 U/L (39-308) Troponin I Quantitative 0.021 ng/mL (0.000-0.055) HY-Cwe-G-Type Natriuretic Peptide 65389 pg/mL (0-124) Total Protein 7.6 g/dL (6.4-8.2) Albumin 2.7 g/dL (3.4-5.0) Albumin/Globulin Ratio 0.6 (1.0-1.7) Urine Opiates Screen Neg (NEG) Urine Methadone Screen Neg (NEG) Urine Barbiturates Neg (NEG) Urine Phencyclidine Screen Neg (NEG) Urine Amphetamine/Methamphetamine Neg (NEG) Urine Benzodiazepines Screen Neg (NEG) Urine Cocaine Screen Neg (NEG) Urine Cannabinoids Screen Neg (NEG) Urine Ethyl Alcohol Neg (NEG) Laboratory Tests Test 09/04/18 03:31 Sodium Level 140 mmol/L (136-145) Potassium Level 3.2 mmol/L (3.5-5.1) Chloride Level 104 mmol/L (98-107) Carbon Dioxide Level 26 mmol/L (21-32) Anion Gap 10 (6-14) Blood Urea Nitrogen 20 mg/dL (8-26) Creatinine 1.7 mg/dL (0.7-1.3) Estimated GFR (Cockcroft-Gault) 54.6 Glucose Level 128 mg/dL (70-99) Calcium Level 8.4 mg/dL (8.5-10.1) Magnesium Level 2.0 mg/dL (1.8-2.4) Allergies Allergies Coded Allergies Type Severity Reaction Last Updated Verified No Known Drug Allergies 08/01/16 No Disposition/Orders: D/C to Home Patient Instructions d/c planning 39 min ROB MCLAIN MD Sep 04, 2018 14:51
[2018-09-04] MEDS ORDERED: POLY17PO28 PO (14:54)
[2018-09-04] MEDS ORDERED: POTA20TA4 PO (14:54)
[2018-09-04] MEDS ORDERED: BUDE0.5A NEB (14:54)
[2018-09-04] MEDS ORDERED: PRED20TA PO (14:54)
--- NOTE | 2018-09-04 14:58 | DISCH ---
DISCHARGE INSTRUCTIONS Condition on Discharge Condition on Discharge: Guarded Activity After Discharge Activity Instructions for Disc: Activity as tolerated Bathing Instructions: Shower-keep dressing dry Lifting Instructions after Dis: No heavy lifting, No pulling or pushing, Do not lift >10 pounds Exercise Instruction after Dis: Progress as tolerated Driving Instructions after Dis: Do not drive today Weight Bearing Status after Di: As tolerated Diet after Discharge Diet after Discharge: Cardiac, Regular Diet Texture: Regular Liquid Texture: Thin Liquid Swallowing Supervision: None needed Wound Incision Care Wound/Incision Care: May get incision wet Checks after Discharge Checks after discharge: Check blood press - daily Contacting the DR. after DC Call your doctor for: If your condition worsens Treatment/Equipment after DC Adaptive Equipment Issued: None ROB MCLAIN MD Sep 04, 2018 14:57
[2018-09-04 15:00] VITALS: BP 116/64
--- NOTE | 2018-09-04 16:26 | NUR ---
Discharge: Teaching verbal and written. Reviewed medications, follow-up, CHF, Cardiac diet, ECHO, ect. patient verbalized understanding. 4 written prescriptions given to patient. IV removed without complications, catheter tip in-tact. All belongings with patient. Patient ambulated off of unit via wheelchair accompanied by nurse to front door. Family member picked patient up at front door.
--- NOTE | 2018-09-04 17:55 | PDOC ---
CARDIO Progress Notes Date and Time Date of Service 09/04/18 Time of Evaluation 1115 Subjective Subjective: No Chest Pain, No shortness of breath Vitals Vitals Vital Signs Date Time Temp Pulse Resp B/P (MAP) Pulse Ox O2 Delivery O2 Flow Rate FiO2 09/04/18 15:51 Room Air 09/04/18 15:00 97.9 96 18 116/64 (81) 96 97.9 09/03/18 20:00 4.0 Weight Weight [ ] Input and Output Intake and Output Intake and Output 09/04/18 07:00 Intake Total 380 ml Output Total 1800 ml Balance -1420 ml Intake Oral 380 ml Output Urine Total 1800 ml # Voids 9 Laboratory Labs Laboratory Tests Test 09/04/18 03:31 Sodium Level 140 mmol/L (136-145) Potassium Level 3.2 mmol/L (3.5-5.1) Chloride Level 104 mmol/L (98-107) Carbon Dioxide Level 26 mmol/L (21-32) Anion Gap 10 (6-14) Blood Urea Nitrogen 20 mg/dL (8-26) Creatinine 1.7 mg/dL (0.7-1.3) Estimated GFR (Cockcroft-Gault) 54.6 Glucose Level 128 mg/dL (70-99) Calcium Level 8.4 mg/dL (8.5-10.1) Magnesium Level 2.0 mg/dL (1.8-2.4) Physical Exam HEENT: Neck Supple W Full Motion Chest: Symmetric LUNGS: Clear to Auscultation Heart: S1S2, RRR, murmurs (3/6 [place]) Abdomen: Soft N/T Extremities: No Calf Tenderness Neurology: alert, oriented, follow commands Assessment Assessment 1. Acute on chronic systolic HF; improved with diuresis 2. CAD; s/p PCI/BMS to LAD in 17. MPI earlier this year showed large infarct with mild helen-infarct ischemia. 3. Mixed ICM and NICM cardiomyopathy; LVEF 20% 4. Mitral regurgitation; moderate to severe 5. Pulmonary HTN 6. CKD 7. Hypomagnesemia 8. Hypokalemia 9. Tobacco abuse 10. H/o meth use. Recommendations Additional diuresis Replace K Continue optimization therapy with Entresto, Coreg, diuretic therapy Secondary prevention measures May discharge later this afternoon and f/u in our office with Dr. Mirza in 4-6 weeks. IVIS LUGO APRN Sep 04, 2018 17:55
--- NOTE | 2018-09-04 17:56 | PDOC ---
PROGRESS NOTES Subjective Subjective Patient seen and examined He looks and feels much better today. Objective Objective Vital Signs Date Time Temp Pulse Resp B/P (MAP) Pulse Ox O2 Delivery O2 Flow Rate FiO2 09/04/18 15:51 Room Air 09/04/18 15:00 97.9 96 18 116/64 (81) 96 97.9 09/03/18 20:00 4.0 Intake and Output 09/04/18 07:00 Intake Total 380 ml Output Total 1800 ml Balance -1420 ml Intake Oral 380 ml Output Urine Total 1800 ml # Voids 9 Physical Exam Abdomen: Normal bowel sounds Heart: Regular rate General: No acute distress Lungs: Other (minimally decreased breath sounds) Assessment Assessment Problems Medical Problems: (1) Acute encephalopathy Status: Acute (2) Acute exacerbation of CHF (congestive heart failure) Status: Acute (3) Hypomagnesemia Status: Acute (4) Renal insufficiency Status: Acute (5) Respiratory distress Status: Acute 1. Acute on chronic systolic heart failure. Recent echo shows an ejection fraction of 20% with moderately severe mitral regurgitation. She was significantly improved today. We discussed and I stressed the importance of compliance with his medications. 2. Coronary artery disease. Status post bare metal stent placement to the LAD in 2017. MPI testing in March of this year shows a large infarct with mild helen- infarction ischemia. We'll continue on medical treatment at this time. 3. Tobacco abuse. Patient reports discontinuing smoking one week ago. 4. Pulmonary hypertension. Continuing medical treatment. 5. Hypomagnesemia. Replace and monitor. 6. History of use of crystal meth. He discussed his drug and alcohol use. He stated he plans on discontinuing both. Continue medications as above. Office follow-up in 3 weeks. Comment Review of Relevant I have reviewed the following items nicolas (where applicable) has been applied. Labs Laboratory Tests Test 09/03/18 08:00 09/03/18 08:10 09/04/18 03:31 White Blood Count 5.5 x10^3/uL (4.0-11.0) Red Blood Count 4.56 x10^6/uL (4.30-5.70) Hemoglobin 12.0 g/dL (13.0-17.5) Hematocrit 38.4 % (39.0-53.0) Mean Corpuscular Volume 84 fL (79-100) Mean Corpuscular Hemoglobin 26 pg (25-35) Mean Corpuscular Hemoglobin Concent 31 g/dL (31-37) Red Cell Distribution Width 21.6 % (11.5-14.5) Platelet Count 381 x10^3/uL (140-400) Neutrophils (%) (Auto) 51 % (31-73) Lymphocytes (%) (Auto) 41 % (24-48) Monocytes (%) (Auto) 6 % (0-9) Eosinophils (%) (Auto) 2 % (0-3) Basophils (%) (Auto) 1 % (0-3) Neutrophils # (Auto) 2.8 x10^3/uL (1.8-7.7) Lymphocytes # (Auto) 2.2 x10^3/uL (1.0-4.8) Monocytes # (Auto) 0.3 x10^3/uL (0.0-1.1) Eosinophils # (Auto) 0.1 x10^3/uL (0.0-0.7) Basophils # (Auto) 0.1 x10^3/uL (0.0-0.2) Platelet Estimate Adequate (ADEQUATE) Polychromasia Present Anisocytosis Present Macrocytosis Present Ovalocytes Present Prothrombin Time 13.9 SEC (11.7-14.0) Prothromb Time International Ratio 1.1 (0.8-1.1) Sodium Level 135 mmol/L (136-145) 140 mmol/L (136-145) Potassium Level 3.8 mmol/L (3.5-5.1) 3.2 mmol/L (3.5-5.1) Chloride Level 102 mmol/L (98-107) 104 mmol/L (98-107) Carbon Dioxide Level 23 mmol/L (21-32) 26 mmol/L (21-32) Anion Gap 10 (6-14) 10 (6-14) Blood Urea Nitrogen 21 mg/dL (8-26) 20 mg/dL (8-26) Creatinine 1.6 mg/dL (0.7-1.3) 1.7 mg/dL (0.7-1.3) Estimated GFR (Cockcroft-Gault) 58.5 54.6 BUN/Creatinine Ratio 13 (6-20) Glucose Level 121 mg/dL (70-99) 128 mg/dL (70-99) Calcium Level 8.7 mg/dL (8.5-10.1) 8.4 mg/dL (8.5-10.1) Magnesium Level 1.7 mg/dL (1.8-2.4) 2.0 mg/dL (1.8-2.4) Total Bilirubin 0.4 mg/dL (0.2-1.0) Aspartate Amino Transf (AST/SGOT) 33 U/L (15-37) Alanine Aminotransferase (ALT/SGPT) 43 U/L (16-63) Alkaline Phosphatase 158 U/L (46-116) Creatine Kinase 217 U/L (39-308) Troponin I Quantitative 0.021 ng/mL (0.000-0.055) MK-Yom-I-Type Natriuretic Peptide 66343 pg/mL (0-124) Total Protein 7.6 g/dL (6.4-8.2) Albumin 2.7 g/dL (3.4-5.0) Albumin/Globulin Ratio 0.6 (1.0-1.7) Urine Opiates Screen Neg (NEG) Urine Methadone Screen Neg (NEG) Urine Barbiturates Neg (NEG) Urine Phencyclidine Screen Neg (NEG) Urine Amphetamine/Methamphetamine Neg (NEG) Urine Benzodiazepines Screen Neg (NEG) Urine Cocaine Screen Neg (NEG) Urine Cannabinoids Screen Neg (NEG) Urine Ethyl Alcohol Neg (NEG) Laboratory Tests Test 09/04/18 03:31 Sodium Level 140 mmol/L (136-145) Potassium Level 3.2 mmol/L (3.5-5.1) Chloride Level 104 mmol/L (98-107) Carbon Dioxide Level 26 mmol/L (21-32) Anion Gap 10 (6-14) Blood Urea Nitrogen 20 mg/dL (8-26) Creatinine 1.7 mg/dL (0.7-1.3) Estimated GFR (Cockcroft-Gault) 54.6 Glucose Level 128 mg/dL (70-99) Calcium Level 8.4 mg/dL (8.5-10.1) Magnesium Level 2.0 mg/dL (1.8-2.4) Medications Current Medications Furosemide (Lasix) 40 mg 1X ONCE IVP Last administered on 09/03/18at 08:50; Start 09/03/18 at 08:45; Stop 09/03/18 at 08:46; Status DC Methylprednisolone Sodium Succinate (SOLU-Medrol 125MG VIAL) 125 mg 1X ONCE IV Last administered on 09/03/18 08:51; Start 09/03/18 at 08:45; Stop 09/03/18 at 08:46; Status DC Albuterol/ Ipratropium (Duoneb) 3 ml 1X ONCE NEB Last administered on 09/03/18at 09:05; Start 09/03/18 at 08:45; Stop 09/03/18 at 08:46; Status DC Magnesium Sulfate 50 ml @ 25 mls/hr 1X ONCE IV Last administered on 09/03/18at 11:19; Start 09/03/18 at 09:00; Stop 09/03/18 at 10:59; Status DC Aspirin (Ecotrin) 81 mg DAILY PO Last administered on 09/04/18 08:41; Start 09/03/18 at 11:00; Stop 09/04/18 at 16:32; Status DC Carvedilol (Coreg) 6.25 mg BIDWMEALS PO Last administered on 09/04/18at 08:42; Start 09/03/18 at 11:00; Stop 09/04/18 at 16:32; Status DC Atorvastatin Calcium (Lipitor) 80 mg QHS PO Last administered on 09/03/18at 20:39; Start 09/03/18 at 21:00; Stop 09/04/18 at 16:32; Status DC Non-Formulary Medication (Efavirenz/ Emtricitab/ Tenofovir (Atripla Tablet)) 1 each DAILY PO ; Start 09/04/18 at 09:00; Stop 09/04/18 at 16:32; Status DC Paroxetine HCl (Paxil) 40 mg DAILY PO Last administered on 09/04/18 08:41; Start 09/03/18 at 11:00; Stop 09/04/18 at 16:32; Status DC Sacubitril/ Valsartan (Entresto 24 Mg-26 Mg) 1 tab BID PO Last administered on 09/04/18 08:42; Start 09/03/18 at 11:00; Stop 09/04/18 at 16:32; Status DC Furosemide (Lasix) 40 mg BID92 IVP Last administered on 09/04/18at 14:09; Start 09/03/18 at 14:00; Stop 09/04/18 at 16:32; Status DC Albuterol/ Ipratropium (Duoneb) 3 ml RTQID NEB Last administered on 09/04/18at 15:50; Start 09/03/18 at 12:00; Stop 09/04/18 at 16:32; Status DC Budesonide (Pulmicort) 0.5 mg RTBID NEB Last administered on 09/04/18at 07:33; Start 09/03/18 at 11:00; Stop 09/04/18 at 16:32; Status DC Prednisone (Prednisone) 20 mg DAILY PO Last administered on 09/04/18at 08:41; Start 09/04/18 at 09:00; Stop 09/04/18 at 16:32; Status DC Ondansetron HCl (Zofran) 4 mg PRN Q6HRS PRN IV NAUSEA/VOMITING; Start 09/03/18 at 10:30; Stop 09/04/18 at 16:32; Status DC Acetaminophen (Tylenol) 500 mg PRN Q6HRS PRN PO MILD PAIN / TEMP; Start 09/03/18 at 10:30; Stop 09/04/18 at 16:32; Status DC Polyethylene Glycol (miraLAX PACKET) 17 gm PRN DAILY PRN PO CONSTIPATION; Start 09/03/18 at 10:30; Stop 09/04/18 at 16:32; Status DC Potassium Chloride (Klor-Con) 40 meq 1X ONCE PO Last administered on 09/04/18at 11:05; Start 09/04/18 at 11:00; Stop 09/04/18 at 11:01; Status DC Potassium Chloride (Klor-Con) 40 meq 1X ONCE PO Last administered on 09/04/18at 14:08; Start 09/04/18 at 13:45; Stop 09/04/18 at 13:48; Status DC Potassium Chloride (Klor-Con) 40 meq 1X ONCE PO ; Start 09/04/18 at 14:45; Stop 09/04/18 at 14:53; Status DC Potassium Chloride (Klor-Con) 20 meq DAILYWBKFT PO ; Start 09/05/18 at 08:00; Stop 09/05/18 at 08:00; Status DC Active Scripts Active Prednisone 20 Mg Tablet 20 Mg PO DAILY 10 Days Budesonide 0.5 Mg/2 Ml Ampul.neb 0.5 Mg NEB RTBID 10 Days Polyethylene Glycol 3350 17 Gm Powd.pack 17 Gm PO PRN DAILY PRN 10 Days Klor-Con M20 (Potassium Chloride) 20 Meq Tab.er.prt 20 Meq PO DAILYWBKFT 10 Days Carvedilol (Carvedilol) 6.25 Mg Tablet 6.25 Mg PO BIDWMEALS Lasix (Furosemide) 40 Mg Tablet 1 Tab PO DAILY Aspir 81 (Aspirin) 81 Mg Tablet. 1 Tab PO DAILY Reported Atorvastatin Calcium 80 Mg Tablet 1 Tab PO DAILY Entresto 24 mg-26 mg Tablet (Sacubitril/Valsartan) 1 Each Tablet 1 Each PO BID Paxil (Paroxetine Hcl) 40 Mg Tablet 40 Mg PO DAILY Atripla Tablet (Efavirenz/Emtricitab/Tenofovir) 1 Each Tablet 1 Each PO DAILY Vitals/I & O Vital Sign - Last 24 Hours 09/03/18 09/03/18 09/03/18 09/03/18 19:28 19:59 20:00 20:40 Temp 98.0 98.0 Pulse 98 98 Resp 18 B/P (MAP) 100/65 (77) 100/65 Pulse Ox 100 97 O2 Delivery Room Air Room Air Nasal Cannula O2 Flow Rate 4.0 09/03/18 09/04/18 09/04/18 09/04/18 22:50 03:13 07:00 07:34 Temp 98.1 97.4 97.4 98.1 97.4 97.4 Pulse 96 85 102 Resp 18 18 20 B/P (MAP) 107/73 (84) 132/79 (96) 124/89 (101) Pulse Ox 96 97 95 O2 Delivery Room Air Room Air Room Air Room Air 09/04/18 09/04/18 09/04/18 09/04/18 08:00 08:42 08:42 11:00 Temp 97.7 97.7 Pulse 95 95 98 Resp 18 B/P (MAP) 119/85 (96) Pulse Ox 99 O2 Delivery Room Air Room Air 09/04/18 09/04/18 09/04/18 11:15 15:00 15:51 Temp 97.9 97.9 Pulse 96 Resp 18 B/P (MAP) 116/64 (81) Pulse Ox 96 O2 Delivery Room Air Room Air Room Air Intake and Output 09/03/18 09/03/18 09/04/18 15:00 23:00 07:00 Intake Total 180 ml 200 ml Output Total 1800 ml Balance -1800 ml 180 ml 200 ml ALEXANDRA MATA MD Sep 04, 2018 17:56
[2018-09-05] MEDS ORDERED: POTASSIUM CHLORIDE 20 MEQ TABLET.ER. PO SCH (08:00)
== END 2018-09-04 16:25 | disposition home or self-care (01) | DRG 291 ==
LOC: ER 07:46 → 2 SOUTH 08:37
PROVIDERS: ADMIT Internal Medicine; ATTEND Internal Medicine
DX: I13.0 Hypertensive heart and chronic kidney disease with heart failure and stage 1 through stage 4 chronic kidney disease, or unspecified chronic kidney disease (principal); I50.43 Acute on chronic combined systolic (congestive) and diastolic (congestive) heart failure; J96.01 Acute respiratory failure with hypoxia; G93.40 Encephalopathy, unspecified; E83.42 Hypomagnesemia; J45.909 Unspecified asthma, uncomplicated; I25.10 Atherosclerotic heart disease of native coronary artery without angina pectoris; N18.9 Chronic kidney disease, unspecified; F41.9 Anxiety disorder, unspecified; E78.5 Hyperlipidemia, unspecified; J20.9 Acute bronchitis, unspecified; I27.20 Pulmonary hypertension, unspecified; I08.1 Rheumatic disorders of both mitral and tricuspid valves; F15.90 Other stimulant use, unspecified, uncomplicated; E87.6 Hypokalemia; I42.9 Cardiomyopathy, unspecified; F10.10 Alcohol abuse, uncomplicated; I25.2 Old myocardial infarction; Z95.5 Presence of coronary angioplasty implant and graft; Z79.899 Other long term (current) drug therapy; Z82.49 Family history of ischemic heart disease and other diseases of the circulatory system; Z72.0 Tobacco use
CPT/HCPCS: 36415; 36600; 71045; 80048; 80053; 80307; 82550; 83735; 83880; 84484; 85025; 85610; 93005; 94640; 96374; 96375; J1940; J2930; J3475; J7512; J7620; J7626; 99285-25

== ENCOUNTER 2018-10-12 01:10 | Inpatient (IN) | payer OTHER ==
[~2018-10-12] VITALS: Ht 180.3 cm; Wt 78.3 kg
[~2018-10-12 01:10] MED LIST changes: +ATORVASTATIN CA80 MG PO; +BUDE0.5A NEB; +POLY17PO28 PO; +POTA20TA4 PO; +PRED20TA PO
[2018-10-12 01:38] LABS: BASO % 1 % (0-3); EOS # 0.1 x10^3/uL (0.0-0.7); EOS % 2 % (0-3); HEMATOCRIT 39.7 % (39.0-53.0); LYMPH # 1.4 x10^3/uL (1.0-4.8); LYMPH % 22 % (24-48); MEAN CORPUSCULAR HEMOGLOBIN 28 pg (25-35); MEAN CORPUSCULAR HGB CONC 33 g/dL (31-37); MEAN CORPUSCULAR VOLUME 84 fL (79-100); MONO # 0.3 x10^3/uL (0.0-1.1); MONO % 4 % (0-9); NEUT # 4.5 x10^3/uL (1.8-7.7); NEUT % 72 % (31-73); PLATELET COUNT 390 x10^3/uL (140-400); RED BLOOD COUNT 4.72 x10^6/uL (4.30-5.70); RED CELL DISTRIBUTION WIDTH 22.8 % (11.5-14.5); WHITE BLOOD COUNT 6.3 x10^3/uL (4.0-11.0)
[2018-10-12] MEDS ORDERED: NITROGLYCERIN SUBLINGUAL 0.4 MG BOTTLE OF 25. SL STA (01:45)
[2018-10-12] MEDS ORDERED: ASPIRIN CHEWABLE 81 MG TABLET. PO ONE (01:45)
[2018-10-12 01:46] LABS: PROTHROMBIN TIME PATIENT 13.6 SEC (11.7-14.0)
[2018-10-12 01:48] LABS: CALCIUM 8.8 mg/dL (8.5-10.1); CREATININE 1.9 mg/dL (0.7-1.3); POTASSIUM 3.6 mmol/L (3.5-5.1)
--- NOTE | 2018-10-12 01:49 | PHYS DOC ---
Past Medical History Past Medical History: CHF, Heart Disease, Hypertension Additional Past Medical Histor: "HEARING VOICES" Past Surgical History: No Surgical History Additional Past Surgical Histo: UNKNOWN Alcohol Use: Heavy Additional Information: REPORTS DRINKING 1/2 OF A FIFTH OF VODKA TONIGHT Drug Use: Methamphetamine Social History Narrative: LAST USE YESTERDAY Adult General Chief Complaint Chief Complaint: CHEST PAIN HPI HPI Patient is a 38 year old male who presents with complaining of chest pain. Patient complaining of intermittent episodes of left-sided chest pain as an aching pain and rated his pain 4/10 with episodes of shortness of breath described position and swelling of his ankle. Patient states he has history of CHF and currently taking Lasix and concern for his heart failure. Patient admitted to his methamphetamine yesterday and drinking half a pint of was caught last night and smoking cigarettes. Review of Systems Review of Systems Constitutional: Denies fever or chills [] Eyes: Denies change in visual acuity, redness, or eye pain [] HENT: Denies nasal congestion or sore throat [] Respiratory: Denies cough, reports shortness of breath [] Cardiovascular: No additional information not addressed in HPI [] GI: Denies abdominal pain, nausea, vomiting, bloody stools or diarrhea [] : Denies dysuria or hematuria [] Musculoskeletal: Denies back pain or joint pain [] Integument: Denies rash or skin lesions [] Neurologic: Denies headache, focal weakness or sensory changes [] Endocrine: Denies polyuria or polydipsia [] All other systems were reviewed and found to be within normal limits, except as documented in this note. Current Medications Current Medications Current Medications Medications (Trade) Dose Ordered Sig/Wilbur Start Time Stop Time Status Last Admin Dose Admin Aspirin (Children'S Aspirin) 324 mg 1X ONCE 10/12/18 01:45 10/12/18 01:50 DC 10/12/18 01:57 324 MG Nitroglycerin (Nitrostat) 0.4 mg 1X STAT 10/12/18 01:45 10/12/18 01:50 DC 10/12/18 01:57 0.4 MG Allergies Allergies Allergies Coded Allergies Type Severity Reaction Last Updated Verified No Known Drug Allergies 08/01/16 No Physical Exam Physical Exam Constitutional: Well developed, well nourished, mild distress, non-toxic appearance. [] HENT: Normocephalic, atraumatic. Eyes: PERRLA, EOMI, conjunctiva normal, no discharge. [] Neck: Normal range of motion, no tenderness, supple, no stridor. [] Cardiovascular:Heart rate regular rhythm, no murmur [] Lungs & Thorax: Bilateral breath sounds clear to auscultation [] Abdomen: Bowel sounds normal, soft, no tenderness, no masses, no pulsatile masses. [] Skin: Warm, dry, no erythema, no rash. [] Back: No tenderness, no CVA tenderness. [] Extremities: No tenderness, no cyanosis, no clubbing, ROM intact, trace ankle edema. Neurologic: Alert and oriented X 3, no focal deficits noted. [] Psychologic: Affect normal, judgement normal, mood normal. [] Current Patient Data Vital Signs Vital Signs Date Time Temp Pulse Resp B/P (MAP) Pulse Ox O2 Delivery O2 Flow Rate FiO2 10/12/18 02:21 111 20 121/80 (94) 97 Room Air 10/12/18 01:15 97.4 97.4 Lab Values Laboratory Tests Test 10/12/18 01:20 White Blood Count 6.3 x10^3/uL (4.0-11.0) Red Blood Count 4.72 x10^6/uL (4.30-5.70) Hemoglobin 13.0 g/dL (13.0-17.5) Hematocrit 39.7 % (39.0-53.0) Mean Corpuscular Volume 84 fL (79-100) Mean Corpuscular Hemoglobin 28 pg (25-35) Mean Corpuscular Hemoglobin Concent 33 g/dL (31-37) Red Cell Distribution Width 22.8 % (11.5-14.5) H Platelet Count 390 x10^3/uL (140-400) Neutrophils (%) (Auto) 72 % (31-73) Lymphocytes (%) (Auto) 22 % (24-48) L Monocytes (%) (Auto) 4 % (0-9) Eosinophils (%) (Auto) 2 % (0-3) Basophils (%) (Auto) 1 % (0-3) Neutrophils # (Auto) 4.5 x10^3/uL (1.8-7.7) Lymphocytes # (Auto) 1.4 x10^3/uL (1.0-4.8) Monocytes # (Auto) 0.3 x10^3/uL (0.0-1.1) Eosinophils # (Auto) 0.1 x10^3/uL (0.0-0.7) Basophils # (Auto) 0.0 x10^3/uL (0.0-0.2) Platelet Estimate Adequate (ADEQUATE) Polychromasia Slight Anisocytosis Mod Prothrombin Time 13.6 SEC (11.7-14.0) Prothrombin Time INR 1.1 (0.8-1.1) Sodium Level 134 mmol/L (136-145) L Potassium Level 3.6 mmol/L (3.5-5.1) Chloride Level 100 mmol/L (98-107) Carbon Dioxide Level 22 mmol/L (21-32) Anion Gap 12 (6-14) Blood Urea Nitrogen 20 mg/dL (8-26) Creatinine 1.9 mg/dL (0.7-1.3) H Estimated GFR (Cockcroft-Gault) 48.0 BUN/Creatinine Ratio 11 (6-20) Glucose Level 107 mg/dL (70-99) H Calcium Level 8.8 mg/dL (8.5-10.1) Magnesium Level 1.6 mg/dL (1.8-2.4) L Total Bilirubin 0.7 mg/dL (0.2-1.0) Aspartate Amino Transferase (AST) 26 U/L (15-37) Alanine Aminotransferase (ALT) 30 U/L (16-63) Alkaline Phosphatase 162 U/L (46-116) H Creatine Kinase 375 U/L (39-308) H Troponin I Quantitative < 0.017 ng/mL (0.000-0.055) IY-Qrv-[id number]-Type Natriuretic Peptide 34012 pg/mL (0-124) H Total Protein 7.6 g/dL (6.4-8.2) Albumin 2.7 g/dL (3.4-5.0) L Albumin/Globulin Ratio 0.6 (1.0-1.7) L Lipase 305 U/L (73-393) Ethyl Alcohol Level 28 mg/dL (0-10) H Laboratory Tests 10/12/18 01:20 Laboratory Tests 10/12/18 01:20 EKG EKG EKG interpreted by me. EKG at 0116 showed sinus tachycardia at rate of 110, left atrial abnormalities, right de la cruz axis, poor R-wave progress in anteroseptal leads, no acute ST and T-wave elevation Radiology/Procedures Radiology/Procedures [][facility] [address] [place] [address] IMAGING REPORT Signed PATIENT: ALLA JACK LACCOUNT: [id number] : 1980 LOCATION: ER AGE: 38 SEX: M EXAM STATUS: REG ER ORD. PHYSICIAN: VICTORINO BERMAN MD REASON: chest pain PROCEDURE: PORTABLE CHEST 1V EXAM: CHEST ONE VIEW. HISTORY: Chest pain. COMPARISON: 09/03/2018. FINDINGS: A frontal view of the chest is obtained. There are no confluent infiltrates. There is no pneumothorax or pleural effusion. The heart is moderately enlarged. IMPRESSION: 1. Moderate cardiomegaly. Electronically signed by: Luis Meek MD (10/12/2018 2:15 AM) [facility] DICTATED and SIGNED BY: BREANN MEEK MD DATE: 10/12/18214 Course & Med Decision Making Course & Med Decision Making Pertinent Labs and Imaging studies reviewed. (See chart for details) Evaluation of patient in ER showed 38-year-old male patient with history of CHF presented with increasing shortness of breath and chest pain after drinking alcohol and using methamphetamine. Patient had of 10,000 without elevation of cardiac enzymes and his chest pain improved with nitroglycerin �1. Patient had mild tachycardia. Patient treated with Lasix.Patient requiring admission for further evaluation and treatment. Discussed with Dr. Garcia who is in agreement with admission. Discussed findings and plan with patient and family, who acknowledge understanding and agreement. Dragon Disclaimer Dragon Disclaimer This electronic medical record was generated, in whole or in part, using a voice recognition dictation system. Departure Departure Impression: Primary Impression: CHF exacerbation Additional Impressions: Acute chest pain Methamphetamine abuse Alcohol abuse Renal insufficiency Hypomagnesemia Disposition: ADMITTED INPATIENT (at 0240) Admitting Physician: ISXTO (Dr. Garcia accepted admission) Condition: IMPROVED Referrals: MOHINDER GO MD (PCP) The HEART Score for CP Pts HEART Score for Chest Pain: HEART Score for Chest Pain Response (Comments) Value History Moderately Suspicious 1 ECG Nonspecific Repolarizatio 1 Age < 45 0 Risk Factors 1 or 2 Risk Factors 1 Troponin < Normal Limit 0 Total 3 Risk Factors: Risk Factors: DM, Current or recent (<one month) smoker, HTN, HLP, family history of CAD, obesity. Risk Scores: Score 0 - 3: 2.5% MACE over next 6 weeks - Discharge Home Score 4 - 6: 20.3% MACE over next 6 weeks - Admit for Clinical Observation Score 7 - 10: 72.7% MACE over next 6 weeks - Early Invasive Strategies Problem Qualifiers Primary Impression: CHF exacerbation Heart failure type: unspecified Qualified Codes: I50.9 - Heart failure, unspecified VICTORINO BERMAN MD Oct 12, 2018 01:49
[2018-10-12 01:55] LABS: ALBUMIN 2.7 g/dL (3.4-5.0); ALBUMIN/GLOBULIN RATIO 0.6 (1.0-1.7); MAGNESIUM 1.6 mg/dL (1.8-2.4); TOTAL BILIRUBIN 0.7 mg/dL (0.2-1.0); TOTAL PROTEIN 7.6 g/dL (6.4-8.2)
[2018-10-12 01:58] LABS: ANISOCYTOSIS MOD; PLT ESTIMATE ADEQUATE (ADEQUATE); POLYCHROMASIA SLIGHT
--- NOTE | 2018-10-12 02:18 | RAD ---
EXAM: CHEST ONE VIEW. HISTORY: Chest pain. COMPARISON: 09/03/2018. FINDINGS: A frontal view of the chest is obtained. There are no confluent infiltrates. There is no pneumothorax or pleural effusion. The heart is moderately enlarged. IMPRESSION: 1. Moderate cardiomegaly. Electronically signed by: Luis Meek MD (10/12/2018 2:15 AM) [facility]
[2018-10-12] MEDS ORDERED: FUROSEMIDE 40 MG/4 ML VIAL. IVP ONE ×2 (02:45→07:00)
[2018-10-12 03:20] VITALS: BP 148/108
[2018-10-12 03:26] LABS: BARBITURATES NEG (NEG); BENZODIAZEPINES NEG (NEG); CANNABINOIDS NEG (NEG); COCAINE NEG (NEG); METHADONE NEG (NEG); OPIATES NEG (NEG); PHENCYCLIDINE NEG (NEG)
[2018-10-12 03:32] LABS: AMPHETAMINE/METHAMPHETAMINE POS (NEG)
[2018-10-12] MEDS ORDERED: MAGNESIUM SULFATE 2GM 50 ML IV ONE (04:45)
--- NOTE | 2018-10-12 05:49 | NUR ---
At 0320 a 38 y.o male admitted with acute chest pain and exab chf. Pt ambulated to bed w/o difficulty, a/ox4, has a flat affect and very soft spoken. Assessment complete, explained poc, pt verbalized understanding. Will call dr valerio regarding low magnesium level 1.6. Call light in place, will cont to monitor pt status and safety. pmrn
--- NOTE | 2018-10-12 06:16 | EKG ---
[facility] [address] [place] [address] Test Date: 2018-10-12 Test Time: 01:16:20 Pat Name: ALLA JACK Department: Room: 250 1 Gender: M Data Migration Lead: : 1980 Requested By: VICTORINO BERMAN Order Number: [id number] Reading MD: Sergei Blakely MD Measurements Intervals [place] Rate: 110 P: 34 VA: 154 QRS: 93 QRSD: 96 T: 48 QT: 350 QTc: 479 Interpretive Statements SINUS TACHYCARDIA NON-SPECIFIC ST/T CHANGES Electronically Signed On 10-13-2018 15:53:10 CDT by Sergei Blakely MD
[2018-10-12 07:00] VITALS: BP 126/95
[2018-10-12] MEDS ORDERED: MAGNESIUM SULFATE 1GM 100 ML IV ONE (07:00)
[2018-10-12] MEDS ORDERED: ASPIRIN ENTERIC COATED 81 MG TABLET.DR. PO SCH (08:00)
[2018-10-12] MEDS ORDERED: POTASSIUM CHLORIDE 20 MEQ TABLET.ER. PO SCH (08:00)
[2018-10-12] MEDS ORDERED: CARVEDILOL 6.25 MG TABLET. PO SCH (08:00)
--- NOTE | 2018-10-12 08:02 | PDOC1 ---
History and Physical Date of Admission Date of Admission DATE: 10/12/18 TIME: 07:59 Identification/Chief Complaint Chief Complaint Shortness of breath and chest pain Source Source: Patient History of Present Illness History of Present Illness Mr Perera is a 38 yo male w/ PMHx CAD s/p PCI wit stenting, sCHF EF 20%, HTN, VT, Hyperlipidemia, Valve insufficiency MR moderate to severe, Asthma, Anxiety, HIV on HAART who came to ED for complains of SOB and worsening orthopnea, unable to lay down. Reports that he has been having episodes of chest pain 4/10 as well. He did have some right chest pain after coughing but otherwise denies. No palpitations, frequent dizziness or leg swelling. No PND but has orthopnea and increasing wheezing. No jaw tightness or arm discomfort. No recent falls or injury. He stopped smoking tobacco 1 week ago and denies continuing to use meth. Since then he started drinking vodka due to stress about but states he has backed off on this too. Verbalized compliance with his meds and his symptoms actually improved when he doubled his lasix dose at one point, but last night took 80mg of lasix without improvement. In ED notably had BNP 98153, mag 1.6. Cr 1.9. CXR consistent with CHF exacerbation. Past Medical History Cardiovascular: CAD, CHF, HTN, VT, Hyperlipidemia, Valve insufficiency Pulmonary: Asthma Psych: Anxiety Musculoskeletal: Other Rheumatologic: No pertinent hx Infectious disease: No pertinent hx, Other Renal/: No pertinent hx Endocrine: No pertinent hx Past Surgical History Past Surgical History: Other Family History Family History: Coronary Artery Disease Social History ALCOHOL: other Drugs: Crystal meth Current Problem List Problem List Problems Medical Problems: (1) Alcohol abuse Status: Acute (2) Hypomagnesemia Status: Acute (3) Renal insufficiency Status: Acute Current Medications Current Medications Current Medications Aspirin (Children'S Aspirin) 324 mg 1X ONCE PO Last administered on 10/12/18at 01:57; Start 10/12/18 at 01:45; Stop 10/12/18 at 01:50; Status DC Nitroglycerin (Nitrostat) 0.4 mg 1X STAT SL Last administered on 10/12/18at 01:57; Start 10/12/18 at 01:45; Stop 10/12/18 at 01:50; Status DC Furosemide (Lasix) 40 mg 1X ONCE IVP Last administered on 10/12/18at 02:44; Start 10/12/18 at 02:45; Stop 10/12/18 at 02:46; Status DC Magnesium Sulfate 50 ml @ 25 mls/hr 1X ONCE IV Last administered on 10/12/18at 04:49; Start 10/12/18 at 04:45; Stop 10/12/18 at 06:44; Status DC Aspirin (Ecotrin) 81 mg DAILY08 PO ; Start 10/12/18 at 08:00 Carvedilol (Coreg) 6.25 mg BIDWMEALS PO ; Start 10/12/18 at 08:00 Potassium Chloride (Klor-Con) 20 meq DAILYWBKFT PO ; Start 10/12/18 at 08:00 Sacubitril/ Valsartan (Entresto 24 Mg-26 Mg) 1 tab BID PO ; Start 10/12/18 at 09:00 Atorvastatin Calcium (Lipitor) 80 mg HS PO ; Start 10/12/18 at 21:00 Paroxetine HCl (Paxil) 40 mg DAILY PO ; Start 10/12/18 at 09:00 Furosemide (Lasix) 40 mg DAILY PO ; Start 10/12/18 at 09:00 Magnesium Sulfate/ Dextrose 100 ml @ 100 mls/hr 1X ONCE IV ; Start 10/12/18 at 07:00; Stop 10/12/18 at 07:59 Furosemide (Lasix) 40 mg 1X ONCE IVP ; Start 10/12/18 at 07:00; Stop 10/12/18 at 07:01; Status DC Active Scripts Active Klor-Con M20 (Potassium Chloride) 20 Meq Tab.er.prt 20 Meq PO DAILYWBKFT 10 Days Carvedilol (Carvedilol) 6.25 Mg Tablet 6.25 Mg PO BIDWMEALS Lasix (Furosemide) 40 Mg Tablet 1 Tab PO DAILY Aspir 81 (Aspirin) 81 Mg Tablet. 1 Tab PO DAILY Reported Atorvastatin Calcium 80 Mg Tablet 1 Tab PO DAILY Entresto 24 mg-26 mg Tablet (Sacubitril/Valsartan) 1 Each Tablet 1 Each PO BID Paxil (Paroxetine Hcl) 40 Mg Tablet 40 Mg PO DAILY Allergies Allergies: Coded Allergies: No Known Drug Allergies (Unverified , 08/01/16) ROS General: YES: Fatigue, Malaise; No: Chills, Night Sweats, Appetite, Other PSYCHOLOGICAL ROS: No: Anxiety, Behavioral Disorder, Concentration difficultie, Decreased libido, Depression, Disorientation, Hallucinations, Hostility, Irritablity, Memory difficulties, Mood Swings, Obsessive thoughts, Physical abuse, Sexual abuse, Sleep disturbances, Suicidal ideation, Other Eyes: No Blurry vision, No Decreased vision, No Double vision, No Dry eyes, No Excessive tearing, No Eye Pain, No Itchy Eyes, No Loss of vision, No Photophobia, No Scotomata, No Uses contacts, No Uses glasses, No Other HEENT: No: Heacaches, Visual Changes, Hearing change, Nasal congestion, Nasal discharge, Oral lesions, Sinus pain, Sore Throat, Epistaxis, Sneezing, Snoring, Tinnitus, Vertigo, Vocal changes, Other ALLERGY AND IMMUNOLOGY: No: Hives, Insect Bite Sensitivity, Itchy/Watery Eyes, Nasal Congestion, Post Nasal Drip, Seasonal Allergies, Other Hematological and Lymphatic: No: Bleeding Problems, Blood Clots, Blood Transfusions, Brusing, Night Sweats, Pallor, Swollen Lymph Nodes, Other ENDOCRINE: No: Breast Changes, Galactorrhea, Hair Pattern Changes, Hot Flashes, Malaise/lethargy, Mood Swings, Palpitations, Polydipsia/polyuria, Skin Changes, Temperature Intolerance, Unexpected Weight Changes, Other Breast: No New/Changing Breast Lumps, No Nipple changes, No Nipple discharge, No Other Respiratory: YES: Cough, Shortness of breath, SOB with excertion; No: Hemoptysis, Orthopnea, Pleuritic Pain, Sputum Changes, Stridor, Tachypnea, Wheezing, Other Cardiovascular: yes Chest Pain; No Palpitations, No Orthopnea, No Paroxysmal Noc. Dyspnea, No Edema, No Lt Headedness, No Other Gastrointestinal: No Nausea, No Vomiting, No Abdominal Pain, No Diarrhea, No Constipation, No Melena, No Hematochezia, No Other Genitourinary: No Dysuria, No Frequency, No Incontinence, No Hematuria, No Retention, No Discharge, No Urgency, No Pain, No Flank Pain, No Other, No , No , No , No , No , No , No Musculoskeletal: No Gait Disturbance, No Joint Pain, No Joint Stiffness, No Joint Swelling, No Muscle Pain, No Muscular Weakness, No Pain In:, No Swelling In:, No Other Neurological: No Behavorial Changes, No Bowel/Bladder ControlChng, No Confusion, No Dizziness, No Gait Disturbance, No Headaches, No Impaired Coord/balance, No Memory Loss, No Numbness/Tingling, No Seizures, No Speech Problems, No Tremors, No Visual Changes, No Weakness, No Other Skin: No Dry Skin, No Eczema, No Hair Changes, No Lumps, No Mole Changes, No Mottling, No Nail Changes, No Pruritus, No Rash, No Skin Lesion Changes, No Other, No Acne Physical Exam General: Alert, Oriented X3, Cooperative, No acute distress HEENT: Atraumatic, PERRLA, EOMI, Mucous membr. moist/pink Lungs: Clear to auscultation, Normal air movement Heart: S1S2, RRR, no gallops, murmurs (2/6) Abdomen: Normal bowel sounds, Soft, No tenderness, No hepatosplenomegaly, No masses Rectal Exam: not examined Extremities: No clubbing, No cyanosis, No edema, Normal pulses, No tenderness/swelling Skin: No rashes, No breakdown, No significant lesion Neuro: Normal gait, Normal speech, Strength at 5/5 X4 ext, Normal tone, Sensation intact, Cranial nerves 3-12 NL, Reflexes 2+ Psych/Mental Status: Mental status NL, Mood NL Vitals Vitals Vital Signs Date Time Temp Pulse Resp B/P (MAP) Pulse Ox O2 Delivery O2 Flow Rate FiO2 10/12/18 07:00 98.1 106 18 126/95 (105) 97 Room Air 98.1 Labs Labs Laboratory Tests Test 10/12/18 01:20 10/12/18 03:10 10/12/18 05:40 White Blood Count 6.3 x10^3/uL (4.0-11.0) Red Blood Count 4.72 x10^6/uL (4.30-5.70) Hemoglobin 13.0 g/dL (13.0-17.5) Hematocrit 39.7 % (39.0-53.0) Mean Corpuscular Volume 84 fL (79-100) Mean Corpuscular Hemoglobin 28 pg (25-35) Mean Corpuscular Hemoglobin Concent 33 g/dL (31-37) Red Cell Distribution Width 22.8 % (11.5-14.5) Platelet Count 390 x10^3/uL (140-400) Neutrophils (%) (Auto) 72 % (31-73) Lymphocytes (%) (Auto) 22 % (24-48) Monocytes (%) (Auto) 4 % (0-9) Eosinophils (%) (Auto) 2 % (0-3) Basophils (%) (Auto) 1 % (0-3) Neutrophils # (Auto) 4.5 x10^3/uL (1.8-7.7) Lymphocytes # (Auto) 1.4 x10^3/uL (1.0-4.8) Monocytes # (Auto) 0.3 x10^3/uL (0.0-1.1) Eosinophils # (Auto) 0.1 x10^3/uL (0.0-0.7) Basophils # (Auto) 0.0 x10^3/uL (0.0-0.2) Platelet Estimate Adequate (ADEQUATE) Polychromasia Slight Anisocytosis Mod Prothrombin Time 13.6 SEC (11.7-14.0) Prothromb Time International Ratio 1.1 (0.8-1.1) Sodium Level 134 mmol/L (136-145) Potassium Level 3.6 mmol/L (3.5-5.1) Chloride Level 100 mmol/L (98-107) Carbon Dioxide Level 22 mmol/L (21-32) Anion Gap 12 (6-14) Blood Urea Nitrogen 20 mg/dL (8-26) Creatinine 1.9 mg/dL (0.7-1.3) Estimated GFR (Cockcroft-Gault) 48.0 BUN/Creatinine Ratio 11 (6-20) Glucose Level 107 mg/dL (70-99) Calcium Level 8.8 mg/dL (8.5-10.1) Magnesium Level 1.6 mg/dL (1.8-2.4) Total Bilirubin 0.7 mg/dL (0.2-1.0) Aspartate Amino Transf (AST/SGOT) 26 U/L (15-37) Alanine Aminotransferase (ALT/SGPT) 30 U/L (16-63) Alkaline Phosphatase 162 U/L (46-116) Creatine Kinase 375 U/L (39-308) Troponin I Quantitative < 0.017 ng/mL (0.000-0.055) < 0.017 ng/mL (0.000-0.055) PN-Wad-P-Type Natriuretic Peptide 75576 pg/mL (0-124) Total Protein 7.6 g/dL (6.4-8.2) Albumin 2.7 g/dL (3.4-5.0) Albumin/Globulin Ratio 0.6 (1.0-1.7) Lipase 305 U/L (73-393) Ethyl Alcohol Level 28 mg/dL (0-10) Urine Opiates Screen Neg (NEG) Urine Methadone Screen Neg (NEG) Urine Barbiturates Neg (NEG) Urine Phencyclidine Screen Neg (NEG) Urine Amphetamine/Methamphetamine Pos (NEG) Urine Benzodiazepines Screen Neg (NEG) Urine Cocaine Screen Neg (NEG) Urine Cannabinoids Screen Neg (NEG) Urine Ethyl Alcohol Pos (NEG) Laboratory Tests Test 10/12/18 01:20 10/12/18 03:10 10/12/18 05:40 White Blood Count 6.3 x10^3/uL (4.0-11.0) Red Blood Count 4.72 x10^6/uL (4.30-5.70) Hemoglobin 13.0 g/dL (13.0-17.5) Hematocrit 39.7 % (39.0-53.0) Mean Corpuscular Volume 84 fL (79-100) Mean Corpuscular Hemoglobin 28 pg (25-35) Mean Corpuscular Hemoglobin Concent 33 g/dL (31-37) Red Cell Distribution Width 22.8 % (11.5-14.5) Platelet Count 390 x10^3/uL (140-400) Neutrophils (%) (Auto) 72 % (31-73) Lymphocytes (%) (Auto) 22 % (24-48) Monocytes (%) (Auto) 4 % (0-9) Eosinophils (%) (Auto) 2 % (0-3) Basophils (%) (Auto) 1 % (0-3) Neutrophils # (Auto) 4.5 x10^3/uL (1.8-7.7) Lymphocytes # (Auto) 1.4 x10^3/uL (1.0-4.8) Monocytes # (Auto) 0.3 x10^3/uL (0.0-1.1) Eosinophils # (Auto) 0.1 x10^3/uL (0.0-0.7) Basophils # (Auto) 0.0 x10^3/uL (0.0-0.2) Platelet Estimate Adequate (ADEQUATE) Polychromasia Slight Anisocytosis Mod Prothrombin Time 13.6 SEC (11.7-14.0) Prothromb Time International Ratio 1.1 (0.8-1.1) Sodium Level 134 mmol/L (136-145) Potassium Level 3.6 mmol/L (3.5-5.1) Chloride Level 100 mmol/L (98-107) Carbon Dioxide Level 22 mmol/L (21-32) Anion Gap 12 (6-14) Blood Urea Nitrogen 20 mg/dL (8-26) Creatinine 1.9 mg/dL (0.7-1.3) Estimated GFR (Cockcroft-Gault) 48.0 BUN/Creatinine Ratio 11 (6-20) Glucose Level 107 mg/dL (70-99) Calcium Level 8.8 mg/dL (8.5-10.1) Magnesium Level 1.6 mg/dL (1.8-2.4) Total Bilirubin 0.7 mg/dL (0.2-1.0) Aspartate Amino Transf (AST/SGOT) 26 U/L (15-37) Alanine Aminotransferase (ALT/SGPT) 30 U/L (16-63) Alkaline Phosphatase 162 U/L (46-116) Creatine Kinase 375 U/L (39-308) Troponin I Quantitative < 0.017 ng/mL (0.000-0.055) < 0.017 ng/mL (0.000-0.055) MW-Dcg-P-Type Natriuretic Peptide 71731 pg/mL (0-124) Total Protein 7.6 g/dL (6.4-8.2) Albumin 2.7 g/dL (3.4-5.0) Albumin/Globulin Ratio 0.6 (1.0-1.7) Lipase 305 U/L (73-393) Ethyl Alcohol Level 28 mg/dL (0-10) Urine Opiates Screen Neg (NEG) Urine Methadone Screen Neg (NEG) Urine Barbiturates Neg (NEG) Urine Phencyclidine Screen Neg (NEG) Urine Amphetamine/Methamphetamine Pos (NEG) Urine Benzodiazepines Screen Neg (NEG) Urine Cocaine Screen Neg (NEG) Urine Cannabinoids Screen Neg (NEG) Urine Ethyl Alcohol Pos (NEG) Images Images Echo - 5/3/19 The Left Ventricle is mild to moderately dilated. Left ventricle systolic function is severely impaired. The Ejection Fraction is estimated at 20%. There is severe global hypokinesis of the left ventricle. There is no significant aortic valvular stenosis. Doppler and Color Flow revealed trace aortic regurgitation. Doppler and Color-flow revealed moderately severe mitral regurgitation. Doppler and Color Flow revealed moderate tricuspid regurgitation. The PA pressure was estimated at 60 mmHg. STRESS TEST - 04/20/18 Conclusion 1. Regadenoson cardioisotope stress test showed large infarct involving the mid to distal anterior wall and the entire apical wall with small amount of helen- infarct ischemia. 2. Severe hypokinesis of the distal anterior wall and akinetic apical wall with ejection fraction calculated at 34%. 3. Low to intermediate risk for cardiac events. HEART CATH - 08/02/2016 Findings. Hemodynamics. Aortic pressure 110/60. Coronaries. Left main. The left was a short vessel with no lesions. Left anterior descending. The LAD was a large vessel with a mid total occlusion. Left circumflex. The left circumflex was a moderate size vessel with distal small vessel disease. Right coronary artery. Right coronary was a moderate-sized vessel with a proximal 25% lesion. <Conclusion> ST elevated myocardial infarction secondary to an occluded mid left anterior descending vessel. Successful stenting of the LAD occlusion with a 3.5 x 28 bare metal stent with residual lesion of 0%. Mild disease in the right coronary artery and left circumflex vessels. VTE Prophylaxis Ordered VTE Prophylaxis Devices: No VTE Pharmacological Prophylaxi: Yes Assessment/Plan Assessment/Plan A/P: Acute on chronic diastolic/systolic CHF - BNP >86177, CXR showing classic interstitial pattern, symptomatic. EF 20%. Will diurese. Consult cardiology Hypomagnesemia - will treat with IV, check daily K and mag Acute bronchitis - will treat acutely. EKG consistent with poor r wave progression indicating respiratory disease CKD - baseline is 1.6. Will monitor Alcohol abuse - at least 2 cups of vodka daily Methamphetamine abuse - counseled on cessation, u tox positive CAD - past stent to LAD HTN - controlled HIV - on HAART per PCP HLD - needs statin therapy FEN - Cardiac diet PPX - Heparin FULL CODE Dispo - Inpatient CVC for acute CHF exacerbation SYLVIA PASTOR MD Oct 12, 2018 08:02
[2018-10-12] MEDS ORDERED: SACUBITRIL/VALSARTAN 24/26MG TABLET. PO SCH (09:00)
[2018-10-12] MEDS ORDERED: FUROSEMIDE 40 MG TABLET. PO SCH (09:00)
[2018-10-12] MEDS ORDERED: PARoxetine 20 MG TABLET PO SCH (09:00)
[2018-10-12] MEDS: HEPARIN for SUB-Q USE 5,000 UNIT/ML VIAL. SQ SCH ×2 (09:46→14:00)
--- NOTE | 2018-10-12 10:10 | PDOC2 ---
CARDIAC CONSULT DATE OF CONSULT Date of Consult DATE: 10/12/18 TIME: 09:46 REASON FOR CONSULT Reason for Consult: CHF, Chest pain REFERRING PHYSICIAN Referring Physician: Scottie SOURCE Source: Chart review, Patient HISTORY OF PRESENT ILLNESS HISTORY OF PRESENT ILLNESS This is a pleasant 38 yo male admitted for complains of chest pain. Reports that he has been having symptoms or orthopnea, PND and leg edema. His left chest pain is sharp and brief intermittent but no palpitations, diaphoresis, nausea or vomiting. He does have CLARK but no different from his baseline. He verbalized cardiac med compliance but remains to use tobacco, meth and heavy ETOH use. Presently his symptoms are now absent. No leg edema and no pleural effusion. PAST MEDICAL HISTORY Past Medical History Cardiovascular: CAD, CHF (ICM), HTN, NH, Hyperlipidemia, Valve insufficiency MR moderate to severe Pulmonary: Asthma Psych: Anxiety Musculoskeletal: Other (none) Rheumatologic: No pertinent hx Infectious disease: No pertinent hx, Other (HIV) ENT: No pertinent hx Renal/: No pertinent hx Endocrine: No pertinent hx Dermatology: No pertinent hx PAST SURGICAL HISTORY Past Surgical History PCI/stent FAMILY HISTORY Family History: Coronary Artery Disease (mother) SOCIAL HISTORY Smoke: <1 pack per day ALCOHOL: heavy Drugs: Crystal meth Lives: with Family CURRENT MEDICATIONS CURRENT MEDICATIONS Current Medications Medications (Trade) Dose Ordered Sig/Wilbur Route PRN Reason Start Time Stop Time Status Last Admin Dose Admin Aspirin (Children'S Aspirin) 324 mg 1X ONCE PO 10/12/18 01:45 10/12/18 01:50 DC 10/12/18 01:57 Nitroglycerin (Nitrostat) 0.4 mg 1X STAT SL 10/12/18 01:45 10/12/18 01:50 DC 10/12/18 01:57 Furosemide (Lasix) 40 mg 1X ONCE IVP 10/12/18 02:45 10/12/18 02:46 DC 10/12/18 02:44 Magnesium Sulfate 50 ml @ 25 mls/hr 1X ONCE IV 10/12/18 04:45 10/12/18 06:44 DC 10/12/18 04:49 ALLERGIES ALLERGIES: Coded Allergies: No Known Drug Allergies (Unverified , 08/01/16) ROS Review of System 14 point ROS evaluated with pertinent positives noted per HPI PHYSICAL EXAM General: Alert, Oriented X3, Cooperative, No acute distress HEENT: Atraumatic, Mucous membr. moist/pink Lungs: Clear to auscultation, Normal air movement Heart: Regular rate (SR), Other (S4, 4/6 systolic apical murmur) Abdomen: Soft, No tenderness Extremities: No cyanosis, No edema Skin: No breakdown, No significant lesion Neuro: Normal speech, Sensation intact Psych/Mental Status: Mental status NL, Mood NL MUSCULOSKELETAL: Osteoarthritic changes both hands VITALS/I&O VITALS/I&O: Vital Signs Date Time Temp Pulse Resp B/P (MAP) Pulse Ox O2 Delivery O2 Flow Rate FiO2 10/12/18 07:00 98.1 106 18 126/95 (105) 97 Room Air 98.1 I & O 10/11/18 10/11/18 10/12/18 14:59 22:59 06:59 Intake Total 0 ml Output Total 800 ml Balance -800 ml LABS Lab: Laboratory Tests Test 10/12/18 01:20 10/12/18 03:10 10/12/18 05:40 White Blood Count 6.3 x10^3/uL (4.0-11.0) Red Blood Count 4.72 x10^6/uL (4.30-5.70) Hemoglobin 13.0 g/dL (13.0-17.5) Hematocrit 39.7 % (39.0-53.0) Mean Corpuscular Volume 84 fL (79-100) Mean Corpuscular Hemoglobin 28 pg (25-35) Mean Corpuscular Hemoglobin Concent 33 g/dL (31-37) Red Cell Distribution Width 22.8 % (11.5-14.5) H Platelet Count 390 x10^3/uL (140-400) Neutrophils (%) (Auto) 72 % (31-73) Lymphocytes (%) (Auto) 22 % (24-48) L Monocytes (%) (Auto) 4 % (0-9) Eosinophils (%) (Auto) 2 % (0-3) Basophils (%) (Auto) 1 % (0-3) Neutrophils # (Auto) 4.5 x10^3/uL (1.8-7.7) Lymphocytes # (Auto) 1.4 x10^3/uL (1.0-4.8) Monocytes # (Auto) 0.3 x10^3/uL (0.0-1.1) Eosinophils # (Auto) 0.1 x10^3/uL (0.0-0.7) Basophils # (Auto) 0.0 x10^3/uL (0.0-0.2) Platelet Estimate Adequate (ADEQUATE) Polychromasia Slight Anisocytosis Mod Prothrombin Time 13.6 SEC (11.7-14.0) Prothrombin Time INR 1.1 (0.8-1.1) Sodium Level 134 mmol/L (136-145) L Potassium Level 3.6 mmol/L (3.5-5.1) Chloride Level 100 mmol/L (98-107) Carbon Dioxide Level 22 mmol/L (21-32) Anion Gap 12 (6-14) Blood Urea Nitrogen 20 mg/dL (8-26) Creatinine 1.9 mg/dL (0.7-1.3) H Estimated GFR (Cockcroft-Gault) 48.0 BUN/Creatinine Ratio 11 (6-20) Glucose Level 107 mg/dL (70-99) H Calcium Level 8.8 mg/dL (8.5-10.1) Magnesium Level 1.6 mg/dL (1.8-2.4) L Total Bilirubin 0.7 mg/dL (0.2-1.0) Aspartate Amino Transferase (AST) 26 U/L (15-37) Alanine Aminotransferase (ALT) 30 U/L (16-63) Alkaline Phosphatase 162 U/L (46-116) H Creatine Kinase 375 U/L (39-308) H Troponin I Quantitative < 0.017 ng/mL (0.000-0.055) < 0.017 ng/mL (0.000-0.055) LU-Bmm-W-Type Natriuretic Peptide 66790 pg/mL (0-124) H Total Protein 7.6 g/dL (6.4-8.2) Albumin 2.7 g/dL (3.4-5.0) L Albumin/Globulin Ratio 0.6 (1.0-1.7) L Lipase 305 U/L (73-393) Ethyl Alcohol Level 28 mg/dL (0-10) H Urine Opiates Screen Neg (NEG) Urine Methadone Screen Neg (NEG) Urine Barbiturates Neg (NEG) Urine Phencyclidine Screen Neg (NEG) Urine Amphetamine/Methamphetamine Pos (NEG) Urine Benzodiazepines Screen Neg (NEG) Urine Cocaine Screen Neg (NEG) Urine Cannabinoids Screen Neg (NEG) Urine Ethyl Alcohol Pos (NEG) Laboratory Tests 10/12/18 01:20 Laboratory Tests 10/12/18 01:20 ECHOCARDIOGRAM ECHOCARDIOGRAM <Conclusion> The Left Ventricle is mild to moderately dilated. Left ventricle systolic function is severely impaired. The Ejection Fraction is estimated at 20%. There is severe global hypokinesis of the left ventricle. There is no significant aortic valvular stenosis. Doppler and Color Flow revealed trace aortic regurgitation. Doppler and Color-flow revealed moderately severe mitral regurgitation. Doppler and Color Flow revealed moderate tricuspid regurgitation. The PA pressure was estimated at 60 mmHg. DATE: 06/23/18 1032 STRESS TEST STRESS TEST Conclusion 1. Regadenoson cardioisotope stress test showed large infarct involving the mid to distal anterior wall and the entire apical wall with small amount of helen- infarct ischemia. 2. Severe hypokinesis of the distal anterior wall and akinetic apical wall with ejection fraction calculated at 34%. 3. Low to intermediate risk for cardiac events. DATE: 04/20/18 1329 HEART CATH HEART CATH Findings. Hemodynamics. Aortic pressure 110/60. Coronaries. Left main. The left was a short vessel with no lesions. Left anterior descending. The LAD was a large vessel with a mid total occlusion. Left circumflex. The left circumflex was a moderate size vessel with distal small vessel disease. Right coronary artery. Right coronary was a moderate-sized vessel with a proximal 25% lesion. <Conclusion> ST elevated myocardial infarction secondary to an occluded mid left anterior descending vessel. Successful stenting of the LAD occlusion with a 3.5 x 28 bare metal stent with residual lesion of 0%. Mild disease in the right coronary artery and left circumflex vessels. DATE: 08/02/16 1630 ASSESSMENT/PLAN ASSESSMENT/PLAN 1. Acute on chronic diastolic/systolic CHF: induced by meth/alcoholism with underlying valvular disease and CM. Now compensated 2. NICM/ICM: NYHA 2. Recent EF at 20% 3. Atypical chest pain: due to CHF and likely vasopasm 4. Tobaccoism 5. Substance abuse: continued use of meth(snorts it) and alcoholism(1 vodka pint daily) 6. CAD: past stent to LAD, clinically stable 7. HTN: controlled 8. HIV: HAART per PCP 9. HLP 10. Valvular insufficiency: mod TR, mod to severe MR 11. Reactive sinus tach: due to meth Recommendations 1. Lasix therapy. Continue secondary prevention and entresto. ASA. Mg replaced 2. AICD candidate but deferred due to failed optimization/noncompliance and continued substance abuse. 3. Again discussed compliance and cessation of ETOH/.tobacco/meth 4. May DC this afternoon. 5. Discussed interaction of coreg and meth. 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
[2018-10-12 10:54] VITALS: BP 133/92
--- NOTE | 2018-10-12 11:23 | NUR ---
SS following for discharge planning. SS reviewed pt chart. Pt is from home and is currently on room air. Per pt RN, pt has a history of HIV, Meth use, and ETOH abuse. PAT team consulted for evaluation and recommendations. No discharge needs noted at this time. SS will continue to follow for discharge planning.
[2018-10-12] MEDS ORDERED: NICOTINE 21MG PATCH. TD SCH (11:30)
[2018-10-12 15:00] VITALS: BP 116/85
--- NOTE | 2018-10-12 15:29 | PDOC3 ---
Discharge Summary Visit Information Date of Admission: Oct 12, 2018 Date of Discharge: Oct 12, 2018 Admitting Diagnosis: Shortness of breath Final Diagnosis Problems Medical Problems: (1) Alcohol abuse Status: Acute (2) Hypomagnesemia Status: Acute (3) Renal insufficiency Status: Acute Brief Hospital Course Allergies Allergies Coded Allergies Type Severity Reaction Last Updated Verified No Known Drug Allergies 08/01/16 No Vital Signs Vital Signs Date Time Temp Pulse Resp B/P (MAP) Pulse Ox O2 Delivery O2 Flow Rate FiO2 10/12/18 12:30 101 133/92 10/12/18 10:54 97.5 18 97 Room Air 97.5 Lab Results Laboratory Tests Test 10/12/18 01:20 10/12/18 03:10 10/12/18 05:40 10/12/18 08:45 White Blood Count 6.3 x10^3/uL (4.0-11.0) Red Blood Count 4.72 x10^6/uL (4.30-5.70) Hemoglobin 13.0 g/dL (13.0-17.5) Hematocrit 39.7 % (39.0-53.0) Mean Corpuscular Volume 84 fL (79-100) Mean Corpuscular Hemoglobin 28 pg (25-35) Mean Corpuscular Hemoglobin Concent 33 g/dL (31-37) Red Cell Distribution Width 22.8 % (11.5-14.5) Platelet Count 390 x10^3/uL (140-400) Neutrophils (%) (Auto) 72 % (31-73) Lymphocytes (%) (Auto) 22 % (24-48) Monocytes (%) (Auto) 4 % (0-9) Eosinophils (%) (Auto) 2 % (0-3) Basophils (%) (Auto) 1 % (0-3) Neutrophils # (Auto) 4.5 x10^3/uL (1.8-7.7) Lymphocytes # (Auto) 1.4 x10^3/uL (1.0-4.8) Monocytes # (Auto) 0.3 x10^3/uL (0.0-1.1) Eosinophils # (Auto) 0.1 x10^3/uL (0.0-0.7) Basophils # (Auto) 0.0 x10^3/uL (0.0-0.2) Platelet Estimate Adequate (ADEQUATE) Polychromasia Slight Anisocytosis Mod Prothrombin Time 13.6 SEC (11.7-14.0) Prothromb Time International Ratio 1.1 (0.8-1.1) Sodium Level 134 mmol/L (136-145) Potassium Level 3.6 mmol/L (3.5-5.1) Chloride Level 100 mmol/L (98-107) Carbon Dioxide Level 22 mmol/L (21-32) Anion Gap 12 (6-14) Blood Urea Nitrogen 20 mg/dL (8-26) Creatinine 1.9 mg/dL (0.7-1.3) Estimated GFR (Cockcroft-Gault) 48.0 BUN/Creatinine Ratio 11 (6-20) Glucose Level 107 mg/dL (70-99) Calcium Level 8.8 mg/dL (8.5-10.1) Magnesium Level 1.6 mg/dL (1.8-2.4) Total Bilirubin 0.7 mg/dL (0.2-1.0) Aspartate Amino Transf (AST/SGOT) 26 U/L (15-37) Alanine Aminotransferase (ALT/SGPT) 30 U/L (16-63) Alkaline Phosphatase 162 U/L (46-116) Creatine Kinase 375 U/L (39-308) Troponin I Quantitative < 0.017 ng/mL (0.000-0.055) < 0.017 ng/mL (0.000-0.055) < 0.017 ng/mL (0.000-0.055) GC-Zcx-Q-Type Natriuretic Peptide 09759 pg/mL (0-124) Total Protein 7.6 g/dL (6.4-8.2) Albumin 2.7 g/dL (3.4-5.0) Albumin/Globulin Ratio 0.6 (1.0-1.7) Lipase 305 U/L (73-393) Ethyl Alcohol Level 28 mg/dL (0-10) Urine Opiates Screen Neg (NEG) Urine Methadone Screen Neg (NEG) Urine Barbiturates Neg (NEG) Urine Phencyclidine Screen Neg (NEG) Urine Amphetamine/Methamphetamine Pos (NEG) Urine Benzodiazepines Screen Neg (NEG) Urine Cocaine Screen Neg (NEG) Urine Cannabinoids Screen Neg (NEG) Urine Ethyl Alcohol Pos (NEG) Laboratory Tests Test 10/12/18 01:20 10/12/18 03:10 10/12/18 05:40 10/12/18 08:45 White Blood Count 6.3 x10^3/uL (4.0-11.0) Red Blood Count 4.72 x10^6/uL (4.30-5.70) Hemoglobin 13.0 g/dL (13.0-17.5) Hematocrit 39.7 % (39.0-53.0) Mean Corpuscular Volume 84 fL (79-100) Mean Corpuscular Hemoglobin 28 pg (25-35) Mean Corpuscular Hemoglobin Concent 33 g/dL (31-37) Red Cell Distribution Width 22.8 % (11.5-14.5) Platelet Count 390 x10^3/uL (140-400) Neutrophils (%) (Auto) 72 % (31-73) Lymphocytes (%) (Auto) 22 % (24-48) Monocytes (%) (Auto) 4 % (0-9) Eosinophils (%) (Auto) 2 % (0-3) Basophils (%) (Auto) 1 % (0-3) Neutrophils # (Auto) 4.5 x10^3/uL (1.8-7.7) Lymphocytes # (Auto) 1.4 x10^3/uL (1.0-4.8) Monocytes # (Auto) 0.3 x10^3/uL (0.0-1.1) Eosinophils # (Auto) 0.1 x10^3/uL (0.0-0.7) Basophils # (Auto) 0.0 x10^3/uL (0.0-0.2) Platelet Estimate Adequate (ADEQUATE) Polychromasia Slight Anisocytosis Mod Prothrombin Time 13.6 SEC (11.7-14.0) Prothromb Time International Ratio 1.1 (0.8-1.1) Sodium Level 134 mmol/L (136-145) Potassium Level 3.6 mmol/L (3.5-5.1) Chloride Level 100 mmol/L (98-107) Carbon Dioxide Level 22 mmol/L (21-32) Anion Gap 12 (6-14) Blood Urea Nitrogen 20 mg/dL (8-26) Creatinine 1.9 mg/dL (0.7-1.3) Estimated GFR (Cockcroft-Gault) 48.0 BUN/Creatinine Ratio 11 (6-20) Glucose Level 107 mg/dL (70-99) Calcium Level 8.8 mg/dL (8.5-10.1) Magnesium Level 1.6 mg/dL (1.8-2.4) Total Bilirubin 0.7 mg/dL (0.2-1.0) Aspartate Amino Transf (AST/SGOT) 26 U/L (15-37) Alanine Aminotransferase (ALT/SGPT) 30 U/L (16-63) Alkaline Phosphatase 162 U/L (46-116) Creatine Kinase 375 U/L (39-308) Troponin I Quantitative < 0.017 ng/mL (0.000-0.055) < 0.017 ng/mL (0.000-0.055) < 0.017 ng/mL (0.000-0.055) IW-Vch-F-Type Natriuretic Peptide 24675 pg/mL (0-124) Total Protein 7.6 g/dL (6.4-8.2) Albumin 2.7 g/dL (3.4-5.0) Albumin/Globulin Ratio 0.6 (1.0-1.7) Lipase 305 U/L (73-393) Ethyl Alcohol Level 28 mg/dL (0-10) Urine Opiates Screen Neg (NEG) Urine Methadone Screen Neg (NEG) Urine Barbiturates Neg (NEG) Urine Phencyclidine Screen Neg (NEG) Urine Amphetamine/Methamphetamine Pos (NEG) Urine Benzodiazepines Screen Neg (NEG) Urine Cocaine Screen Neg (NEG) Urine Cannabinoids Screen Neg (NEG) Urine Ethyl Alcohol Pos (NEG) Brief Hospital Course Mr Perera is a 38 yo male w/ PMHx CAD s/p PCI wit stenting, sCHF EF 20%, HTN, OR, Hyperlipidemia, Valve insufficiency MR moderate to severe, Asthma, Anxiety, HIV on HAART who came to ED for complains of SOB and worsening orthopnea, unable to lay down. Reports that he has been having episodes of chest pain 4/10 as well. He did have some right chest pain after coughing but otherwise denies. No palpitations, frequent dizziness or leg swelling. No PND but has orthopnea and increasing wheezing. No jaw tightness or arm discomfort. No recent falls or injury. He stopped smoking tobacco 1 week ago and denies continuing to use meth. Since then he started drinking vodka due to stress about but states he has backed off on this too. Verbalized compliance with his meds and his symptoms actually improved when he doubled his lasix dose at one point, but last night took 80mg of lasix without improvement. In ED notably had BNP 70644, mag 1.6. Cr 1.9. CXR consistent with CHF exacerbation. Received 2 doses of lasix with excellent urine output. A/P: Acute on chronic diastolic/systolic CHF - BNP >48396, CXR showing classic interstitial pattern, symptomatic. EF 20%. Will diurese. Consult cardiology Hypomagnesemia - will treat with IV, check daily K and mag Acute bronchitis - will treat acutely. EKG consistent with poor r wave progression indicating respiratory disease CKD - baseline is 1.6. Will monitor Alcohol abuse - at least 2 cups of vodka daily Methamphetamine abuse - counseled on cessation, u tox positive CAD - past stent to LAD HTN - controlled HIV - on HAART per PCP HLD - needs statin therapy Greater than 30 minutes spent on discharge. Discharge Information Condition at Discharge: Improved Follow Up: Weeks Disposition/Orders: D/C to Home Scheduled Aspirin (Aspir 81) 81 Mg Tablet.dr, 1 TAB PO DAILY, #30 Ref 5 Prescribed by: VINEET LIZAMA on 08/04/16 0805 Last Action: Continued on 10/12/18644 by SYLVIA PASTOR MD Atorvastatin Calcium (Atorvastatin Calcium) 80 Mg Tablet, 1 TAB PO DAILY for high cholestrol , #30 Ref 5 (Reported) Entered as Reported by: IVIS FRANKEL on 09/03/18 1016 Last Action: Converted on 10/12/18644 by SYLVIA PASTOR MD Carvedilol (Carvedilol ) 6.25 Mg Tablet, 6.25 MG PO BIDWMEALS for chf, #60 Prescribed by: KIRK ZIMMER on 06/25/18 0910 Last Action: Continued on 10/12/18644 by SYLVIA PASTOR MD Furosemide (Lasix) 40 Mg Tablet, 1 TAB PO DAILY for CHF, #30 Ref 5 Prescribed by: ROB MCLAIN MD on 02/13/18 1553 Last Action: Continued on 10/12/18644 by SYLVIA PASTOR MD Paroxetine Hcl (Paxil) 40 Mg Tablet, 40 MG PO DAILY, (Reported) Entered as Reported by: ALFREDA ESQUIVEL on 08/01/161406 Last Action: Converted on 10/12/18644 by SYLVIA PASTOR MD Potassium Chloride (Klor-Con M20) 20 Meq Tab.er.prt, 20 MEQ PO DAILYWBKFT for supplement for 10 Days, #10 Prescribed by: ROB MCLAIN MD on 09/04/18 8474 Last Action: Continued on 10/12/18644 by SYLVIA PASTOR MD Sacubitril/Valsartan (Entresto 24 mg-26 mg Tablet) 1 Each Tablet, 1 EACH PO BID for CHF, (Reported) Entered as Reported by: DONNA JACOB on 06/23/18 0537 Last Action: Continued on 10/12/18644 by SYLVIA PASTOR MD Discontinued Medications Efavirenz/Emtricitab/Tenofovir (Atripla Tablet) 1 Each Tablet, 1 EACH PO DAILY, (Reported) Entered as Reported by: ALFREDA ESQUIVEL on 08/01/161406 Last Action: Discontinued on 10/12/18614 by SYLVAI JOY MD Oct 12, 2018 15:29
[2018-10-12] MEDS ORDERED: ATORVASTATIN CALCIUM 40 MG TABLET. PO SCH (21:00)
== END 2018-10-12 16:52 | disposition home or self-care (01) | DRG 640 ==
LOC: ER 01:10 → 2 SOUTH 02:39
PROVIDERS: ADMIT Internal Medicine; ATTEND Internal Medicine
DX: E83.42 Hypomagnesemia (principal); I50.43 Acute on chronic combined systolic (congestive) and diastolic (congestive) heart failure; I13.0 Hypertensive heart and chronic kidney disease with heart failure and stage 1 through stage 4 chronic kidney disease, or unspecified chronic kidney disease; I42.9 Cardiomyopathy, unspecified; R07.89 Other chest pain; E78.5 Hyperlipidemia, unspecified; F10.20 Alcohol dependence, uncomplicated; F15.10 Other stimulant abuse, uncomplicated; J20.9 Acute bronchitis, unspecified; F17.210 Nicotine dependence, cigarettes, uncomplicated; F41.9 Anxiety disorder, unspecified; I25.10 Atherosclerotic heart disease of native coronary artery without angina pectoris; J45.909 Unspecified asthma, uncomplicated; N18.9 Chronic kidney disease, unspecified; Z79.899 Other long term (current) drug therapy; Z82.49 Family history of ischemic heart disease and other diseases of the circulatory system; Z98.61 Coronary angioplasty status; Z21 Asymptomatic human immunodeficiency virus [HIV] infection status
CPT/HCPCS: 36415; 71045; 80053; 80307; 82550; 83690; 83735; 83880; 84484; 85025; 85610; 93005; 96374; G0480; J1644; J1940; J3475; 99285-25; G0378

== ENCOUNTER → 2018-11-22 | Outpatient (CLI) | payer OTHER ==
[~2018-11-22] MED LIST changes: +ALBUTEROL SULFATE 2.5 MG/3 ML NEBU. NEB ONE
== END | disposition home or self-care (01) ==
LOC: PF 08:21
DX: J45.909 Unspecified asthma, uncomplicated (principal); F17.210 Nicotine dependence, cigarettes, uncomplicated
CPT/HCPCS: 94060; 94640; J7613

== ENCOUNTER → 2018-11-22 | Outpatient (CLI) | payer OTHER ==
[~2018-11-22] MED LIST changes: -ALBUTEROL SULFATE 2.5 MG/3 ML NEBU. NEB ONE
--- NOTE | 2018-11-22 11:37 | CARD ---
MR#: [id number] Date of Study: 11/22/2018 Ordering Physician: ALEXANDRA MATA, Referring Physician: ALEXANDRA MATA, Tech: Mickie Sullivan APPROVED REPORT EXAM: Two-dimensional and M-mode echocardiogram with Doppler and color Doppler. Other Information Quality : GoodHR: 107bpm INDICATION Cardiomyopathy RISK FACTORS Hypertension Hyperlipidemia Smoking 2D DIMENSIONS RVDd4.1 (2.9-3.5cm)Left Atrium(2D)4.7 (1.6-4.0cm) IVSd1.1 (0.7-1.1cm)Aortic Root(2D)3.5 (2.0-3.7cm) LVDd6.3 (3.9-5.9cm)LVOT Diameter2.0 (1.8-2.4cm) PWd1.3 (0.7-1.1cm)LVDs5.2 (2.5-4.0cm) FS (%) 17.2 %SV70.3 ml LVEF(%)35.2 (>50%) Aortic Valve AoV Peak Juancho.103.4cm/sAoV VTI13.5cm AO Peak GR.4.3mmHgLVOT Peak Juancho.55.7cm/s LVOT VTI 7.36cmAO Mean GR.3mmHg PEBBLES (VMAX)1.28ig7WQX (VTI)1.71cm2 Mitral Valve MV E Fnlbiqdc387.8cm/sMV E Peak Gr.72mmHg MV DECEL ZZDW97efYK A Jicryklg13.4cm/s MV PHW42ujJ/A Ratio4.1 MVA (PHT)9.11cm2 TDI E/Lateral E'13.8E/Medial E'27.4 Pulmonary Valve PV Peak Jpemjalp27.3cm/sPV Peak Grad.3mmHg Tricuspid Valve TR P. Flnclzkf479os/sRAP WVUIQMSO24arJz TR Peak Gr.53tbYqWYWR44loWr Pulmonary Vein S1 Zflflczp82.4cm/sD2 Enifmhgn00.4cm/s PVa amkxunek960kznz LEFT VENTRICLE The Left Ventricle is mildly dilated. There is mild to moderate concentric left ventricular hypertrop hy. The left ventricular systolic function is severely impaired. The Ejection Fraction is 20-25%. The re is global severe hypokinesis of the left ventricle. Transmitral Doppler flow pattern is Grade II-p seudonormal filling dynamics. RIGHT VENTRICLE The right ventricle is mildly dilated. There is normal right ventricular wall thickness. Systolic fun ction is mildly reduced. ATRIA The left atrium is borderline dilated. The right atrium is mildly dilated. The interatrial septum is intact with no evidence for an atrial septal defect or patent foramen ovale as noted on 2-D or Dopple r imaging. AORTIC VALVE The aortic valve is normal in structure and function. Doppler and Color Flow revealed trace aortic re gurgitation. There is no significant aortic valvular stenosis. MITRAL VALVE The mitral valve is normal in structure and function. There is no evidence of mitral valve prolapse. There is no mitral valve stenosis. Doppler and Color-flow revealed moderate mitral regurgitation. TRICUSPID VALVE The tricuspid valve is normal in structure and function. Doppler and Color Flow revealed moderate tri cuspid regurgitation with an estimated PAP of 68 mmHg. There is no tricuspid valve stenosis. PULMONIC VALVE The pulmonary valve is normal in structure and function. Doppler and Color Flow revealed moderate pul gilbert valvular regurgitation. GREAT VESSELS The aortic root is normal in size. The IVC is dilated and collapses <50% with inspiration. PERICARDIAL EFFUSION There is no evidence of significant pericardial effusion. Critical Notification Critical Value: No <Conclusion> The left ventricular systolic function is severely impaired. The Ejection Fraction is 20-25%. Moderate mitral regurgitation. Moderate tricuspid regurgitation with an estimated PAP of 68 mmHg. There is no evidence of significant pericardial effusion. Signed by : Adolfo Choi, Electronically Approved : 11/22/2018 11:36:47
== END | disposition home or self-care (01) ==
LOC: ECHO 08:18
PROVIDERS: ATTEND Internal Medicine Cardiovascular Disease
DX: I08.8 Other rheumatic multiple valve diseases (principal)
CPT/HCPCS: 93306

== ENCOUNTER 2019-05-10 07:38 | Emergency (ER) | payer OTHER ==
[~2019-05-10] VITALS: Ht 175.3 cm; Wt 81.8 kg
[~2019-05-10 07:38] MED LIST changes: +ACET325T9 PO; +ALBU2.5V8 NEB; +DOXY100T PO; +HYDR-2867 PO; +ISOS30TA4 PO; +PARO40TA3 PO
[2019-05-10] MEDS ORDERED: BUMETANIDE 1 MG/4 ML VIAL. IV SCH (08:45)
[2019-05-10 09:07] VITALS: BP 130/93
--- NOTE | 2019-05-10 09:12 | PHYS DOC ---
Past Medical History Past Medical History: Bronchitis, CHF, Heart Disease, Hypertension Additional Past Medical Histor: "HEARING VOICES" Past Surgical History: No Surgical History Additional Past Surgical Histo: UNKNOWN Smoking Status: Current Every Day Smoker Alcohol Use: Heavy Drug Use: Methamphetamine Adult General Chief Complaint Chief Complaint: SHORTNESS OF BREATH [facility] HPI Patient is a 38 year old male who is self presenting with a chief complaint of leg swelling. He has a history of congestive heart failure he has been mildly short of breath but really he is more concerned about his legs he says they are more swollen than normal. He says that he is used to having them be just to his ankles and knees but now the swelling is up to his thighs. He is using metha mphetamine and drinking alcohol regularly including today he says he tries to take his Lasix but sometimes he misses it he says he self medicates due to issues at home and that he has thought about going to rehab but is not interested at this time Review of Systems Review of Systems Constitutional: Denies fever or chills [] Eyes: Denies change in visual acuity, redness, or eye pain [] HENT: Denies nasal congestion or sore throat [] Respiratory:shortness of breath [] Cardiovascular: No additional information not addressed in HPI [] Neurologic: Denies headache, focal weakness or sensory changes [] Endocrine: Denies polyuria or polydipsia [] All other systems were reviewed and found to be within normal limits, except as documented in this note. Current Medications Current Medications Current Medications Medications (Trade) Dose Ordered Sig/Wilbur Start Time Stop Time Status Last Admin Dose Admin Bumetanide (Bumex) 2 mg 1X 05/10/19 08:45 Allergies Allergies Allergies Coded Allergies Type Severity Reaction Last Updated Verified No Known Drug Allergies 08/01/16 No Physical Exam Physical Exam Constitutional: Well developed, well nourished, chronically ill-appearing HENT: Normocephalic, atraumatic, bilateral external ears normal, oropharynx moist, no oral exudates, nose normal. [] Eyes: PERRLA, EOMI, conjunctiva normal, no discharge. [] Neck: Normal range of motion, no tenderness, supple, no stridor. [] Cardiovascular:Heart rate regular rhythm, no murmur [] Lungs & Thorax: Crackles at the bases no respiratory distress Abdomen: Bowel sounds normal, soft, no tenderness, no masses, no pulsatile masses. [] Skin: Warm, dry, no erythema, no rash. [] Extremities: Diffuse edema bilateral lower extremities 3+ at least Neurologic: Alert and oriented X 3, normal motor function, normal sensory function, no focal deficits noted. [] Psychologic: Affect normal, judgement normal, mood normal. [] Current Patient Data Vital Signs Vital Signs Date Time Temp Pulse Resp B/P (MAP) Pulse Ox O2 Delivery O2 Flow Rate FiO2 05/10/19 08:05 98.4 109 16 127/95 (106) 95 Room Air 98.4 EKG EKG [] EKG shows a sinus rhythm rate of 109 likely due to methamphetamine stimulation QTC is 508 no STEMI interpreted by me the time of the encounter nonspecific changes laterally Radiology/Procedures Radiology/Procedures [] Impressions: My interpretation of the chest x-ray is probably some pulmonary vascular congestion and enlarged heart Course & Med Decision Making Course & Med Decision Making Pertinent Labs and Imaging studies reviewed. (See chart for details) [] 38-year-old male with leg swelling history of congestive heart failure EF of 20% noncompliant using meth and alcohol including today. I had a long conversation with him about his overall mortality rate given his continued alcohol and drug abuse. I talked to him about how compliance with sobriety and medications are the only chance of him recovering from this. The plan as I left it with him was to check some lab work check x-ray check kidney function rule out NE check electrolytes give him some IV diuresis and see how he responds in the emergency room. Ultimately he was a hard stick we did get an IV but the nurses wanted to do a straight stick to get lab work and he refused he said he just wanted to go home I talked to him that he would have to leave AGAINST MEDICAL ADVICE as we have not had electrolytes or kidney function or troponin resulting yet. He said he understands that I told him that he could if he goes home he understands that to. He does appear clinically sober logical and can repeat back to me the risks and benefits of staying or leaving he is not hypoxic I offer him to come back at any time I again encourage compliance and he was discharged in stable condition AGAINST MEDICAL ADVICE. Dragon Disclaimer Dragon Disclaimer This electronic medical record was generated, in whole or in part, using a voice recognition dictation system. Departure Departure Impression: Primary Impression: Fluid overload Disposition: 07 AGAINST MEDICAL ADVICE Condition: STABLE Referrals: MOHINDER GO MD (PCP) DREW CHOUDHURY MD May 10, 2019 09:11
--- NOTE | 2019-05-10 09:15 | RAD ---
EXAM: PORTABLE CHEST 1V INDICATION: Shortness of breath. TECHNIQUE: Single portable upright AP view COMPARISON: 04/26/2019 FINDINGS: Moderate cardiomegaly persists. The great vessels appear unremarkable. There is no hilar or mediastinal mass. Lungs are hypoventilatory and show ill-defined hazy opacity at the right lung base. There is no pleural effusion or pneumothorax. There are no significant osseous abnormalities. IMPRESSION: Hypoventilatory chest showing cardiomegaly and minimal ill-defined hazy opacity at the right lung base. Query aspiration pneumonitis. Electronically signed by: Kelly Simon MD (05/10/2019 9:12 AM) [id number]
--- NOTE | 2019-05-10 10:22 | EKG ---
[facility] [address] [place] [address] Test Date: 2019-05-10 Test Time: 08:23:40 Pat Name: ALLA JACK Department: Room: Gender: M [employer]: : 1980 Requested By: DREW CHOUDHURY Order Number: [id number] Reading MD: Measurements Intervals [place] Rate: 108 P: 51 AK: 130 QRS: 90 QRSD: 100 T: 59 QT: 376 QTc: 508 Interpretive Statements SINUS TACHYCARDIA LEFT ATRIAL ABNORMALITY INCOMPLETE RIGHT BUNDLE BRANCH BLOCK QRS(T) CONTOUR ABNORMALITY CONSIDER ANTERIOR INFARCT CONSIDER INFERIOR MYOCARDIAL DAMAGE ABNORMAL ECG No previous ECG available for comparison
== END 2019-05-10 09:08 | disposition left against medical advice (07) ==
LOC: ER 07:38
DX: E87.70 Fluid overload, unspecified (principal); R60.0 Localized edema; I11.0 Hypertensive heart disease with heart failure; I50.9 Heart failure, unspecified; F15.90 Other stimulant use, unspecified, uncomplicated; F17.200 Nicotine dependence, unspecified, uncomplicated; F10.10 Alcohol abuse, uncomplicated
CPT/HCPCS: 71045; 93005; 99283

== ENCOUNTER 2019-07-30 19:12 | Inpatient (IN) | payer MEDICARE, OTHER ==
[~2019-07-30] VITALS: Ht 162.6 cm; Wt 75.2 kg
[~2019-07-30 19:12] MED LIST changes: +BUME1TAB3 PO; +DOCU-153 PO; +METO2.5T PO
[2019-07-30] MEDS ORDERED: methylPREDNISolone SOD SUCC PF 125 MG/2 ML VIAL. IV ONE (19:45)
[2019-07-30] MEDS ORDERED: diphenhydrAMINE 50 MG/ML VIAL IVP ONE (19:45)
[2019-07-30 19:54] LABS: BASO # 0.1 x10^3/uL (0.0-0.2); BASO % 1 % (0-3); EOS # 0.1 x10^3/uL (0.0-0.7); EOS % 2 % (0-3); HEMATOCRIT 35.2 % (39.0-53.0); HEMOGLOBIN 11.9 g/dL (13.0-17.5); LYMPH # 1.8 x10^3/uL (1.0-4.8); LYMPH % 33 % (24-48); MEAN CORPUSCULAR HEMOGLOBIN 31 pg (25-35); MEAN CORPUSCULAR HGB CONC 34 g/dL (31-37); MEAN CORPUSCULAR VOLUME 91 fL (79-100); MONO # 0.3 x10^3/uL (0.0-1.1); MONO % 6 % (0-9); NEUT # 3.2 x10^3/uL (1.8-7.7); NEUT % 58 % (31-73); PLATELET COUNT 311 x10^3/uL (140-400); RED BLOOD COUNT 3.86 x10^6/uL (4.30-5.70); RED CELL DISTRIBUTION WIDTH 21.9 % (11.5-14.5); WHITE BLOOD COUNT 5.4 x10^3/uL (4.0-11.0)
[2019-07-30 20:07] LABS: BILIRUBIN,URINE NEGATIVE (NEG); CLARITY,URINE CLEAR; COLOR,URINE YELLOW; NITRITE,URINE NEGATIVE (NEG); PROTEIN,URINE 100 mg/dL (NEG-TRACE)
[2019-07-30 20:10] LABS: ALBUMIN 2.8 g/dL (3.4-5.0); ALBUMIN/GLOBULIN RATIO 0.6 (1.0-1.7); CALCIUM 8.4 mg/dL (8.5-10.1); CREATININE 1.8 mg/dL (0.7-1.3); GFR 51.1; MAGNESIUM 1.6 mg/dL (1.8-2.4); TOTAL PROTEIN 7.7 g/dL (6.4-8.2)
[2019-07-30 20:17] LABS: BACTERIA,URINE 0 /HPF (0-FEW); SQUAMOUS EPITHELIAL CELL,UR OCC /LPF; WBC,URINE OCC /HPF (0-4)
[2019-07-30 20:18] LABS: AMPHETAMINE/METHAMPHETAMINE NEG (NEG); BARBITURATES NEG (NEG); BENZODIAZEPINES NEG (NEG); CANNABINOIDS NEG (NEG); COCAINE NEG (NEG); METHADONE NEG (NEG); OPIATES NEG (NEG); PHENCYCLIDINE NEG (NEG)
[2019-07-30 20:27] LABS: % EOS 3 % (0-5); % LYMPHS 38 % (24-48); % MONOS 8 % (0-10); % SEGS 51 % (35-66); ANISOCYTOSIS MOD; PLT ESTIMATE ADEQUATE (ADEQUATE); POLYCHROMASIA SLIGHT
[2019-07-30 20:28] LABS: OVALOCYTES FEW
--- NOTE | 2019-07-30 21:09 | RAD ---
Exam: Chest one view INDICATION: Shortness of breath TECHNIQUE: Frontal view of the chest Comparisons: 06/01/2019 FINDINGS: Heart is mildly enlarged. Pulmonary vessels are within normal limits. The lung and pleural spaces are clear. IMPRESSION: Mild cardiomegaly without acute pulmonary process. Electronically signed by: Juan Hernandez MD (07/30/2019 9:06 PM) [id number]
[2019-07-30] MEDS ORDERED: IOHEXOL 350 MG/ML 100 ML VIAL. IV ONE (21:30)
[2019-07-30] MEDS ORDERED: CONTRAST GIVEN. MC PRN (21:30)
--- NOTE | 2019-07-30 21:43 | RAD ---
Exam: CT of chest with contrast INDICATION: cough TECHNIQUE: Sequential axial images through the chest obtained following the administration of 75 mL of Omni 350 IV contrast. Sagittal and coronal reformatted images were reconstructed from the axial data and reviewed. 3-D reformatted images were reconstructed from the axial data and reviewed. Comparisons: 07/30/2019 FINDINGS: Visualized portions of the thyroid are unremarkable. Numerous enlarged pretracheal and prevascular lymph nodes are noted. Heart is enlarged. No pericardial effusion. Thoracic aorta has a normal course and caliber. Pulmonary artery is not enlarged. No pulmonary embolus identified within the main, lobar or segmental arteries. Airways are patent. Mild bronchial wall thickening noted diffusely. There is mosaic attenuation lung parenchyma. No suspicious lung nodules are identified. Trace right-sided pleural effusion. There is retrograde flow of contrast into the IVC and hepatic veins. No suspicious osseous lesions or acute fractures. IMPRESSION: 1. No pulmonary embolus identified within the main, lobar or segmental pulmonary arteries. 2. Mild bronchial wall thickening may relate to bronchitis. 3. Cardiomegaly with findings likely related to mild pulmonary edema. Exposure: One or more of the following in the visualized dose reduction techniques were utilized for this examination: 1. Automated exposure control 2. Adjustment of the MA and/or KV according to patient size 3. Use of iterative of reconstructive technique Electronically signed by: Juan Hernandez MD (07/30/2019 9:40 PM) [id number]
--- NOTE | 2019-07-30 22:49 | PHYS DOC ---
Past Medical History Past Medical History: Bronchitis, CHF, Heart Disease, Hypertension Additional Past Medical Histor: "HEARING VOICES" Past Surgical History: No Surgical History Additional Past Surgical Histo: UNKNOWN Smoking Status: Current Every Day Smoker Alcohol Use: Heavy Drug Use: Methamphetamine General Adult EDM: Chief Complaint: MULTIPLE COMPLAINTS HPI: HPI: Patient is a 38 year old male who presents with concerns about having fleas or some other type of bug infestation in his home. He states that he does not have any pets and he believes that someone from the has placed them because he has made enemies with someone in the . Patient states that he feels itching all over his body and states that he tries to wash them off but when he washes his hands for instance he sees bugs falling off and jumping off of his hands. He also indicates that he has had some itching inside of his eyes and states that he had pulled 1 of his eyelids open and a bug flew out of his eye. Patient also complains of shortness of breath and states that his legs have been swelling up more than usual. He does indicate that he has a history of CHF. [] Review of Systems: Review of Systems: Constitutional: Denies fever or chills. [] Respiratory: Complains of shortness of breath. [] Cardiovascular: Denies chest pain or edema. [] GI: Denies abdominal pain, nausea, vomiting, bloody stools or diarrhea. [] Integument: Complains of pruritus. [] Neurologic: Denies headache, focal weakness or sensory changes. [] A full 10 point review of systems has been reviewed and is otherwise negative. Heart Score: Risk Factors: Risk Factors: DM, Current or recent (<one month) smoker, HTN, HLP, family history of CAD, obesity. Risk Scores: Score 0 - 3: 2.5% MACE over next 6 weeks - Discharge Home Score 4 - 6: 20.3% MACE over next 6 weeks - Admit for Clinical Observation Score 7 - 10: 72.7% MACE over next 6 weeks - Early Invasive Strategies Current Medications: Current Medications Medications (Trade) Dose Ordered Sig/Wilbur Start Time Stop Time Status Last Admin Dose Admin Diphenhydramine HCl (Benadryl) 25 mg 1X ONCE 07/30/19 19:45 07/30/19 19:46 DC 6/8/20 19:51 25 MG Info (CONTRAST GIVEN -- Rx MONITORING) 1 each PRN DAILY PRN 07/30/19 21:30 08/01/19 21:29 Iohexol (Omnipaque 350 Mg/ml) 75 ml 1X ONCE 07/30/19 21:30 07/30/19 21:31 DC 07/30/19 21:31 75 ML Methylprednisolone Sodium Succinate (SOLU-Medrol 125MG VIAL) 125 mg 1X ONCE 07/30/19 19:45 07/30/19 19:46 DC 07/30/19 19:51 125 MG Allergies: Allergies: Allergies Coded Allergies Type Severity Reaction Last Updated Verified No Known Drug Allergies 08/01/16 No Physical Exam: PE: Constitutional: Well developed, well nourished, no acute distress, non-toxic appearance. [] HENT: Normocephalic, atraumatic, bilateral external ears normal, oropharynx moist, no oral exudates, nose normal. [] Eyes: PERRLA, EOMI, conjunctiva normal, no discharge. [] Neck: Normal range of motion, no tenderness, supple, no stridor. [] Cardiovascular:Heart rate regular rhythm, no murmur [] Lungs & Thorax: Bilateral breath sounds clear to auscultation [] Abdomen: Bowel sounds normal, soft, no tenderness, no masses, no pulsatile masses. [] Skin: Warm, dry, no erythema, no rash. [] Back: No tenderness, no CVA tenderness. [] Extremities: No tenderness, no cyanosis, no clubbing, ROM intact, no edema. [] Neurologic: Alert and oriented X 3, normal motor function, normal sensory function, no focal deficits noted. [] Psychologic: Affect normal, judgement normal, mood normal. [] Current Patient Data: Labs: Laboratory Tests Test 07/30/19 19:08 07/30/19 19:45 Urine Collection Type Unknown Urine Color Yellow Urine Clarity Clear Urine pH 7.0 (<5.0-8.0) Urine Specific [place] 1.010 (1.000-1.030) Urine Protein 100 mg/dL (NEG-TRACE) Urine Glucose (UA) Negative mg/dL (NEG) Urine Ketones (Stick) Negative mg/dL (NEG) Urine Blood Negative (NEG) Urine Nitrite Negative (NEG) Urine Bilirubin Negative (NEG) Urine Urobilinogen Dipstick 1.0 mg/dL (0.2 mg/dL) Urine Leukocyte Esterase Trace (NEG) Urine RBC 1-2 /HPF (0-2) Urine WBC Occ /HPF (0-4) Urine Squamous Epithelial Cells Occ /LPF Urine Bacteria 0 /HPF (0-FEW) Urine Opiates Screen Neg (NEG) Urine Methadone Screen Neg (NEG) Urine Barbiturates Neg (NEG) Urine Phencyclidine Screen Neg (NEG) Urine Amphetamine/Methamphetamine Neg (NEG) Urine Benzodiazepines Screen Neg (NEG) Urine Cocaine Screen Neg (NEG) Urine Cannabinoids Screen Neg (NEG) Urine Ethyl Alcohol Neg (NEG) White Blood Count 5.4 x10^3/uL (4.0-11.0) Red Blood Count 3.86 x10^6/uL (4.30-5.70) L Hemoglobin 11.9 g/dL (13.0-17.5) L Hematocrit 35.2 % (39.0-53.0) L Mean Corpuscular Volume 91 fL (79-100) Mean Corpuscular Hemoglobin 31 pg (25-35) Mean Corpuscular Hemoglobin Concent 34 g/dL (31-37) Red Cell Distribution Width 21.9 % (11.5-14.5) H Platelet Count 311 x10^3/uL (140-400) Neutrophils (%) (Auto) 58 % (31-73) Lymphocytes (%) (Auto) 33 % (24-48) Monocytes (%) (Auto) 6 % (0-9) Eosinophils (%) (Auto) 2 % (0-3) Basophils (%) (Auto) 1 % (0-3) Neutrophils # (Auto) 3.2 x10^3/uL (1.8-7.7) Lymphocytes # (Auto) 1.8 x10^3/uL (1.0-4.8) Monocytes # (Auto) 0.3 x10^3/uL (0.0-1.1) Eosinophils # (Auto) 0.1 x10^3/uL (0.0-0.7) Basophils # (Auto) 0.1 x10^3/uL (0.0-0.2) Segmented Neutrophils % 51 % (35-66) Lymphocytes % 38 % (24-48) Monocytes % 8 % (0-10) Eosinophils % 3 % (0-5) Platelet Estimate Adequate (ADEQUATE) Polychromasia Slight Anisocytosis Mod Macrocytosis Slight Ovalocytes Few D-Dimer (Laurita) 1.21 ug/mlFEU (0.00-0.50) H Sodium Level 139 mmol/L (136-145) Potassium Level 3.0 mmol/L (3.5-5.1) L Chloride Level 103 mmol/L (98-107) Carbon Dioxide Level 27 mmol/L (21-32) Anion Gap 9 (6-14) Blood Urea Nitrogen 22 mg/dL (8-26) Creatinine 1.8 mg/dL (0.7-1.3) H Estimated GFR (Cockcroft-Gault) 51.1 BUN/Creatinine Ratio 12 (6-20) Glucose Level 108 mg/dL (70-99) H Calcium Level 8.4 mg/dL (8.5-10.1) L Magnesium Level 1.6 mg/dL (1.8-2.4) L Total Bilirubin 1.0 mg/dL (0.2-1.0) Aspartate Amino Transferase (AST) 32 U/L (15-37) Alanine Aminotransferase (ALT) 29 U/L (16-63) Alkaline Phosphatase 234 U/L (46-116) H Troponin I Quantitative < 0.017 ng/mL (0.000-0.055) ET-Pcc-X-Type Natriuretic Peptide 09220 pg/mL (0-124) H Total Protein 7.7 g/dL (6.4-8.2) Albumin 2.8 g/dL (3.4-5.0) L Albumin/Globulin Ratio 0.6 (1.0-1.7) L Thyroid Stimulating Hormone (TSH) 2.253 uIU/mL (0.358-3.74) Ethyl Alcohol Level < 10 mg/dL (0-10) Laboratory Tests 07/30/19 19:45 Laboratory Tests 07/30/19 19:45 Vital Signs: Vital Signs Date Time Temp Pulse Resp B/P (MAP) Pulse Ox O2 Delivery O2 Flow Rate FiO2 07/30/19 20:14 98 20 133/96 (108) 99 Nasal Cannula 4.0 07/30/19 19:24 97.8 97.8 EKG: EKG: [] Radiology/Procedures: Radiology/Procedures: [] Course & Med Decision Making: Course & Med Decision Making Pertinent Labs and Imaging studies reviewed. (See chart for details) [] Dragon Disclaimer: Dragon Disclaimer: This electronic medical record was generated, in whole or in part, using a voice recognition dictation system. Departure Departure Impression: Primary Impression: CHF exacerbation Qualified Codes: I50.9 - Heart failure, unspecified Additional Impression: Acute psychosis Disposition: ADMITTED INPATIENT Admitting Physician: SIXTO Condition: IMPROVED Referrals: MOHINDER GO MD (PCP) Justicifation of Admission Dx: Justifications for Admission: Justification of Admission Dx: Comment: (patient hypoxemic) SANDIE SPEARS Jr. DO Jul 30, 2019 22:49
[2019-07-30] MEDS ORDERED: FUROSEMIDE 40 MG/4 ML VIAL. IVP ONE (23:00)
[2019-07-30] MEDS ORDERED: POTASSIUM CHLORIDE 20 MEQ TABLET.ER. PO ONE (23:00)
[2019-07-30] MEDS ORDERED: fentaNYL PF VIAL 100 MCG/2 ML VIAL IVP ONE (23:00)
[2019-07-30] MEDS ORDERED: ONDANSETRON PF 4 MG/2 ML VIAL. IV PRN (23:15)
--- NOTE | 2019-07-31 00:01 | NUR ---
The patient, ALLA JACK, 39 y/o, M admitted by KIRK ZIMMER MD, was given written information regarding hospital policies, unit procedures and contact persons. pt arrived to the room and wouldnt allow any care until he got to take a shower. pt brought meds to the hospital, and agreed that what was in his bag was the current meds he is taking. did assess and history and documented , used some from old records as well. discussed fluid restriction/chf with pt, Valuables were checked and documented in emr lcrn.
[2019-07-31 01:11] VITALS: BP 133/87
[2019-07-31 02:08] VITALS: BP 129/85
[2019-07-31] MEDS: MORPHINE SULFATE 4 MG/ML VIAL. IV PRN ×2 (03:48→13:23)
[2019-07-31 07:00] VITALS: BP 107/73
--- NOTE | 2019-07-31 10:29 | PDOC1 ---
History and Physical Date of Admission Date of Admission DATE: 07/31/19 TIME: 10:20 Identification/Chief Complaint Chief Complaint Shortness of breath Source Source: Patient History of Present Illness History of Present Illness Mr Perera is a 38 yo male w/ PMHx CAD s/p PCI with stenting, sCHF EF 20%, HTN, RI, Hyperlipidemia, Valve insufficiency MR moderate to severe, Asthma, Anxiety, HIV on HAART who came to ED for complains of SOB and worsening orthopnea, unable to lay down. Reports that he has been having episodes of chest pain 05/31 as well. He did have some right chest pain after coughing but otherwise denies. No palpitations, frequent dizziness or leg swelling. No PND but has orthopnea and increasing wheezing. No jaw tightness or arm discomfort. No recent falls or injury. He stopped smoking tobacco last year and denies continuing to use meth and denies drinking currently.. Verbalized compliance with his meds and his symptoms actually improved when he doubled his lasix dose at one point, but last night took 80mg of lasix without improvement. BNP of 11,897, Cr 1.8, CXR - marked cardiomegaly, mild interstitial edema likely secondary to fluid overload. Mg 1.6, K 3, Albumin 2.8. Trop negative. He also notes concerns about having fleas or some other type of bug infestation in his home. He states that he does not have any pets and he believes that someone from the has placed them because he has made enemies with someone in the . Patient states that he feels itching all over his body and states that he tries to wash them off but when he washes his hands for instance he sees bugs falling off and jumping off of his hands. He also indicates that he has had some itching inside of his eyes and states that he had pulled 1 of his eyelids open and a bug flew out of his eye. Patient also complains of shortness of breath and states that his legs have been swelling up more than usual. After 3 doses of IV diuretics he was no longer hallucinating, and is feeling improved. Wants to celebrate his birthday. Past Medical History Cardiovascular: CAD, CHF, HTN, RI, Hyperlipidemia, Valve insufficiency Pulmonary: Asthma Psych: Anxiety Musculoskeletal: Other Rheumatologic: No pertinent hx Infectious disease: No pertinent hx, Other Renal/: No pertinent hx Endocrine: No pertinent hx Past Surgical History Past Surgical History: Other Family History Family History: Coronary Artery Disease Social History Smoke: <1 pack per day ALCOHOL: other Drugs: Other Current Problem List Problem List Problems Medical Problems: (1) Acute psychosis Status: Acute Current Medications Current Medications Current Medications Diphenhydramine HCl (Benadryl) 25 mg 1X ONCE IVP Last administered on 07/30/19at 19:51; Start 07/30/19 at 19:45; Stop 07/30/19 at 19:46; Status DC Methylprednisolone Sodium Succinate (SOLU-Medrol 125MG VIAL) 125 mg 1X ONCE IV Last administered on 07/30/19at 19:51; Start 07/30/19 at 19:45; Stop 07/30/19 at 19:46; Status DC Iohexol (Omnipaque 350 Mg/ml) 75 ml 1X ONCE IV Last administered on 07/30/19at 21:31; Start 07/30/19 at 21:30; Stop 07/30/19 at 21:31; Status DC Info (CONTRAST GIVEN -- Rx MONITORING) 1 each PRN DAILY PRN MC SEE COMMENTS; Start 07/30/19 at 21:30; Stop 08/01/19 at 21:29 Furosemide (Lasix) 60 mg 1X ONCE IVP Last administered on 07/30/19at 23:34; Start 07/30/19 at 23:00; Stop 07/30/19 at 23:01; Status DC Potassium Chloride (Klor-Con) 40 meq 1X ONCE PO Last administered on 07/30/19at 23:34; Start 07/30/19 at 23:00; Stop 07/30/19 at 23:01; Status DC Fentanyl Citrate (Fentanyl 2ml Vial) 50 mcg 1X ONCE IVP Last administered on 07/30/19at 23:33; Start 07/30/19 at 23:00; Stop 07/30/19 at 23:01; Status DC Ondansetron HCl (Zofran) 4 mg PRN Q8HRS PRN IV NAUSEA/VOMITING; Start 07/30/19 at 23:15; Stop 07/31/19 at 23:14 Morphine Sulfate (Morphine Sulfate) 4 mg PRN Q2HR PRN IV PAIN Last administered on 07/31/19at 03:48; Start 6/8/20 at 23:15; Stop 07/31/19 at 23:14 Active Scripts Active Polyethylene Glycol 3350 17 Gm Powd.pack 17 Gm PO PRN DAILY PRN 30 Days Dok (Docusate Sodium) 100 Mg Capsule 100 Mg PO BID 30 Days Metolazone 2.5 Mg Tablet 2.5 Mg PO DAILY 30 Days Bumetanide 1 Mg Tablet 1 Mg PO BID94 30 Days Metoprolol Tartrate 25 Mg Tablet 25 Mg PO BID 30 Days Atripla Tablet (Efavirenz/Emtricitab/Tenofovir) 1 Each Tablet 1 Tab PO DAILY 90 Days Tylenol (Acetaminophen) 325 Mg Tablet 650 Mg PO PRN Q6HRS PRN 30 Days Isosorbide Mononitrate Er (Isosorbide Mononitrate) 30 Mg Tab.er.24h 30 Mg PO DAILY 30 Days Hydralazine Hcl 10 Mg Tablet 10 Mg PO TID 30 Days Proair Hfa (Albuterol Sulfate) 8.5 Gm Hfa.aer.ad 2.5 Mg NEB PRN Q4HRS PRN 30 Days Klor-Con M20 (Potassium Chloride) 20 Meq Tab.er.prt 20 Meq PO DAILYWBKFT 10 Days Aspir 81 (Aspirin) 81 Mg Tablet. 1 Tab PO DAILY Reported Paroxetine Hcl 40 Mg Tablet 1 Tab PO DAILY07 90 Days Entresto 24 mg-26 mg Tablet (Sacubitril/Valsartan) 1 Each Tablet 1 Each PO BID Allergies Allergies: Coded Allergies: No Known Drug Allergies (Unverified , 08/01/16) ROS General: YES: Fatigue, Malaise; No: Chills, Night Sweats, Appetite, Other PSYCHOLOGICAL ROS: YES: Anxiety; No: Behavioral Disorder, Concentration difficultie, Decreased libido, Depression, Disorientation, Hallucinations, Hostility, Irritablity, Memory difficulties, Mood Swings, Obsessive thoughts, Physical abuse, Sexual abuse, Sleep disturbances, Suicidal ideation, Other Eyes: No Blurry vision, No Decreased vision, No Double vision, No Dry eyes, No Excessive tearing, No Eye Pain, No Itchy Eyes, No Loss of vision, No Photophobia, No Scotomata, No Uses contacts, No Uses glasses, No Other HEENT: No: Heacaches, Visual Changes, Hearing change, Nasal congestion, Nasal discharge, Oral lesions, Sinus pain, Sore Throat, Epistaxis, Sneezing, Snoring, Tinnitus, Vertigo, Vocal changes, Other ALLERGY AND IMMUNOLOGY: No: Hives, Insect Bite Sensitivity, Itchy/Watery Eyes, Nasal Congestion, Post Nasal Drip, Seasonal Allergies, Other Hematological and Lymphatic: No: Bleeding Problems, Blood Clots, Blood Transfusions, Brusing, Night Sweats, Pallor, Swollen Lymph Nodes, Other ENDOCRINE: No: Breast Changes, Galactorrhea, Hair Pattern Changes, Hot Flashes, Malaise/lethargy, Mood Swings, Palpitations, Polydipsia/polyuria, Skin Changes, Temperature Intolerance, Unexpected Weight Changes, Other Breast: No New/Changing Breast Lumps, No Nipple changes, No Nipple discharge, No Other Respiratory: YES: Cough; No: Hemoptysis, Orthopnea, Pleuritic Pain, Shortness of breath, SOB with excertion, Sputum Changes, Stridor, Tachypnea, Wheezing, Other Cardiovascular: yes Orthopnea; No Chest Pain, No Palpitations, No Paroxysmal Noc. Dyspnea, No Edema, No Lt Headedness, No Other Gastrointestinal: No Nausea, No Vomiting, No Abdominal Pain, No Diarrhea, No Constipation, No Melena, No Hematochezia, No Other Genitourinary: No Dysuria, No Frequency, No Incontinence, No Hematuria, No Retention, No Discharge, No Urgency, No Pain, No Flank Pain, No Other, No , No , No , No , No , No , No Musculoskeletal: No Gait Disturbance, No Joint Pain, No Joint Stiffness, No Joint Swelling, No Muscle Pain, No Muscular Weakness, No Pain In:, No Swelling In:, No Other Neurological: No Behavorial Changes, No Bowel/Bladder ControlChng, No Confusion, No Dizziness, No Gait Disturbance, No Headaches, No Impaired Coord/balance, No Memory Loss, No Numbness/Tingling, No Seizures, No Speech Problems, No Tremors, No Visual Changes, No Weakness, No Other Skin: No Dry Skin, No Eczema, No Hair Changes, No Lumps, No Mole Changes, No Mottling, No Nail Changes, No Pruritus, No Rash, No Skin Lesion Changes, No Other, No Acne Physical Exam General: Alert, Oriented X3, Cooperative, No acute distress HEENT: Atraumatic, PERRLA, EOMI, Mucous membr. moist/pink Lungs: Other (Bibasilar crackles) Heart: S1S2, RRR, no thrills, no rubs Abdomen: Normal bowel sounds, Soft, No tenderness, No hepatosplenomegaly, No masses Extremities: No clubbing, No cyanosis, Normal pulses, No tenderness/swelling, Other (2+ edema) Skin: No rashes, No breakdown, No significant lesion Neuro: Normal gait, Normal speech, Strength at 5/5 X4 ext, Normal tone, Sensation intact, Cranial nerves 3-12 NL, Reflexes 2+ Psych/Mental Status: Mental status NL, Mood NL Vitals Vitals Vital Signs Date Time Temp Pulse Resp B/P (MAP) Pulse Ox O2 Delivery O2 Flow Rate FiO2 07/31/19 08:00 Room Air 07/31/19 07:00 97.7 102 20 107/73 (84) 94 97.7 07/30/19 23:38 4.0 Labs Labs Laboratory Tests Test 07/30/19 19:08 07/30/19 19:45 07/31/19 02:25 07/31/19 05:20 Urine Collection Type Unknown Urine Color Yellow Urine Clarity Clear Urine pH 7.0 (<5.0-8.0) Urine Specific Galt 1.010 (1.000-1.030) Urine Protein 100 mg/dL (NEG-TRACE) Urine Glucose (UA) Negative mg/dL (NEG) Urine Ketones (Stick) Negative mg/dL (NEG) Urine Blood Negative (NEG) Urine Nitrite Negative (NEG) Urine Bilirubin Negative (NEG) Urine Urobilinogen Dipstick 1.0 mg/dL (0.2 mg/dL) Urine Leukocyte Esterase Trace (NEG) Urine RBC 1-2 /HPF (0-2) Urine WBC Occ /HPF (0-4) Urine Squamous Epithelial Cells Occ /LPF Urine Bacteria 0 /HPF (0-FEW) Urine Opiates Screen Neg (NEG) Urine Methadone Screen Neg (NEG) Urine Barbiturates Neg (NEG) Urine Phencyclidine Screen Neg (NEG) Urine Amphetamine/Methamphetamine Neg (NEG) Urine Benzodiazepines Screen Neg (NEG) Urine Cocaine Screen Neg (NEG) Urine Cannabinoids Screen Neg (NEG) Urine Ethyl Alcohol Neg (NEG) White Blood Count 5.4 x10^3/uL (4.0-11.0) Red Blood Count 3.86 x10^6/uL (4.30-5.70) Hemoglobin 11.9 g/dL (13.0-17.5) Hematocrit 35.2 % (39.0-53.0) Mean Corpuscular Volume 91 fL (79-100) Mean Corpuscular Hemoglobin 31 pg (25-35) Mean Corpuscular Hemoglobin Concent 34 g/dL (31-37) Red Cell Distribution Width 21.9 % (11.5-14.5) Platelet Count 311 x10^3/uL (140-400) Neutrophils (%) (Auto) 58 % (31-73) Lymphocytes (%) (Auto) 33 % (24-48) Monocytes (%) (Auto) 6 % (0-9) Eosinophils (%) (Auto) 2 % (0-3) Basophils (%) (Auto) 1 % (0-3) Neutrophils # (Auto) 3.2 x10^3/uL (1.8-7.7) Lymphocytes # (Auto) 1.8 x10^3/uL (1.0-4.8) Monocytes # (Auto) 0.3 x10^3/uL (0.0-1.1) Eosinophils # (Auto) 0.1 x10^3/uL (0.0-0.7) Basophils # (Auto) 0.1 x10^3/uL (0.0-0.2) Segmented Neutrophils % 51 % (35-66) Lymphocytes % 38 % (24-48) Monocytes % 8 % (0-10) Eosinophils % 3 % (0-5) Platelet Estimate Adequate (ADEQUATE) Polychromasia Slight Anisocytosis Mod Macrocytosis Slight Ovalocytes Few D-Dimer (Laurita) 1.21 ug/mlFEU (0.00-0.50) Sodium Level 139 mmol/L (136-145) Potassium Level 3.0 mmol/L (3.5-5.1) Chloride Level 103 mmol/L (98-107) Carbon Dioxide Level 27 mmol/L (21-32) Anion Gap 9 (6-14) Blood Urea Nitrogen 22 mg/dL (8-26) Creatinine 1.8 mg/dL (0.7-1.3) Estimated GFR (Cockcroft-Gault) 51.1 BUN/Creatinine Ratio 12 (6-20) Glucose Level 108 mg/dL (70-99) Calcium Level 8.4 mg/dL (8.5-10.1) Magnesium Level 1.6 mg/dL (1.8-2.4) Total Bilirubin 1.0 mg/dL (0.2-1.0) Aspartate Amino Transf (AST/SGOT) 32 U/L (15-37) Alanine Aminotransferase (ALT/SGPT) 29 U/L (16-63) Alkaline Phosphatase 234 U/L (46-116) Troponin I Quantitative < 0.017 ng/mL (0.000-0.055) < 0.017 ng/mL (0.000-0.055) < 0.017 ng/mL (0.000-0.055) YE-Stz-G-Type Natriuretic Peptide 50287 pg/mL (0-124) Total Protein 7.7 g/dL (6.4-8.2) Albumin 2.8 g/dL (3.4-5.0) Albumin/Globulin Ratio 0.6 (1.0-1.7) Thyroid Stimulating Hormone (TSH) 2.253 uIU/mL (0.358-3.74) Ethyl Alcohol Level < 10 mg/dL (0-10) Laboratory Tests Test 07/30/19 19:08 07/30/19 19:45 07/31/19 02:25 07/31/19 05:20 Urine Collection Type Unknown Urine Color Yellow Urine Clarity Clear Urine pH 7.0 (<5.0-8.0) Urine Specific Galt 1.010 (1.000-1.030) Urine Protein 100 mg/dL (NEG-TRACE) Urine Glucose (UA) Negative mg/dL (NEG) Urine Ketones (Stick) Negative mg/dL (NEG) Urine Blood Negative (NEG) Urine Nitrite Negative (NEG) Urine Bilirubin Negative (NEG) Urine Urobilinogen Dipstick 1.0 mg/dL (0.2 mg/dL) Urine Leukocyte Esterase Trace (NEG) Urine RBC 1-2 /HPF (0-2) Urine WBC Occ /HPF (0-4) Urine Squamous Epithelial Cells Occ /LPF Urine Bacteria 0 /HPF (0-FEW) Urine Opiates Screen Neg (NEG) Urine Methadone Screen Neg (NEG) Urine Barbiturates Neg (NEG) Urine Phencyclidine Screen Neg (NEG) Urine Amphetamine/Methamphetamine Neg (NEG) Urine Benzodiazepines Screen Neg (NEG) Urine Cocaine Screen Neg (NEG) Urine Cannabinoids Screen Neg (NEG) Urine Ethyl Alcohol Neg (NEG) White Blood Count 5.4 x10^3/uL (4.0-11.0) Red Blood Count 3.86 x10^6/uL (4.30-5.70) Hemoglobin 11.9 g/dL (13.0-17.5) Hematocrit 35.2 % (39.0-53.0) Mean Corpuscular Volume 91 fL (79-100) Mean Corpuscular Hemoglobin 31 pg (25-35) Mean Corpuscular Hemoglobin Concent 34 g/dL (31-37) Red Cell Distribution Width 21.9 % (11.5-14.5) Platelet Count 311 x10^3/uL (140-400) Neutrophils (%) (Auto) 58 % (31-73) Lymphocytes (%) (Auto) 33 % (24-48) Monocytes (%) (Auto) 6 % (0-9) Eosinophils (%) (Auto) 2 % (0-3) Basophils (%) (Auto) 1 % (0-3) Neutrophils # (Auto) 3.2 x10^3/uL (1.8-7.7) Lymphocytes # (Auto) 1.8 x10^3/uL (1.0-4.8) Monocytes # (Auto) 0.3 x10^3/uL (0.0-1.1) Eosinophils # (Auto) 0.1 x10^3/uL (0.0-0.7) Basophils # (Auto) 0.1 x10^3/uL (0.0-0.2) Segmented Neutrophils % 51 % (35-66) Lymphocytes % 38 % (24-48) Monocytes % 8 % (0-10) Eosinophils % 3 % (0-5) Platelet Estimate Adequate (ADEQUATE) Polychromasia Slight Anisocytosis Mod Macrocytosis Slight Ovalocytes Few D-Dimer (Laurita) 1.21 ug/mlFEU (0.00-0.50) Sodium Level 139 mmol/L (136-145) Potassium Level 3.0 mmol/L (3.5-5.1) Chloride Level 103 mmol/L (98-107) Carbon Dioxide Level 27 mmol/L (21-32) Anion Gap 9 (6-14) Blood Urea Nitrogen 22 mg/dL (8-26) Creatinine 1.8 mg/dL (0.7-1.3) Estimated GFR (Cockcroft-Gault) 51.1 BUN/Creatinine Ratio 12 (6-20) Glucose Level 108 mg/dL (70-99) Calcium Level 8.4 mg/dL (8.5-10.1) Magnesium Level 1.6 mg/dL (1.8-2.4) Total Bilirubin 1.0 mg/dL (0.2-1.0) Aspartate Amino Transf (AST/SGOT) 32 U/L (15-37) Alanine Aminotransferase (ALT/SGPT) 29 U/L (16-63) Alkaline Phosphatase 234 U/L (46-116) Troponin I Quantitative < 0.017 ng/mL (0.000-0.055) < 0.017 ng/mL (0.000-0.055) < 0.017 ng/mL (0.000-0.055) IW-Oca-T-Type Natriuretic Peptide 31021 pg/mL (0-124) Total Protein 7.7 g/dL (6.4-8.2) Albumin 2.8 g/dL (3.4-5.0) Albumin/Globulin Ratio 0.6 (1.0-1.7) Thyroid Stimulating Hormone (TSH) 2.253 uIU/mL (0.358-3.74) Ethyl Alcohol Level < 10 mg/dL (0-10) Images Images CXR: Heart is mildly enlarged. Pulmonary vessels are within normal limits. The lung and pleural spaces are clear. IMPRESSION: Mild cardiomegaly without acute pulmonary process. CTPA: Visualized portions of the thyroid are unremarkable. Numerous enlarged pretracheal and prevascular lymph nodes are noted. Heart is enlarged. No pericardial effusion. Thoracic aorta has a normal course and caliber. Pulmonary artery is not enlarged. No pulmonary embolus identified within the main, lobar or segmental arteries. Airways are patent. Mild bronchial wall thickening noted diffusely. There is mosaic attenuation lung parenchyma. No suspicious lung nodules are identified. Trace right-sided pleural effusion. There is retrograde flow of contrast into the IVC and hepatic veins. No suspicious osseous lesions or acute fractures. IMPRESSION: 1. No pulmonary embolus identified within the main, lobar or segmental pulmonary arteries. 2. Mild bronchial wall thickening may relate to bronchitis. 3. Cardiomegaly with findings likely related to mild pulmonary edema. VTE Prophylaxis Ordered VTE Prophylaxis Devices: Yes VTE Pharmacological Prophylaxi: Yes Assessment/Plan Assessment/Plan A/P: Acute on chronic diastolic/systolic CHF - BNP >04696, CXR showing classic interstitial pattern, symptomatic. EF 20%. Will diurese. Consult cardiology Acute psychosis - hallucinations were temporary, likely from ETOH use Hypomagnesemia - will treat with IV, check daily K and mag GARRET on CKD - likely vasomotor nephropathy from cardiorenal syndrome, poor renal perfusion with element of ATN. baseline Cr is 1.6. Will monitor Alcohol abuse - at least 2 cups of vodka daily, counseled on cessation Methamphetamine abuse - counseled on cessation, u tox positive previously CAD - past stent to LAD HTN - controlled HIV - on HAART outpatient per his PCP HLD - needs statin therapy Cardiohepatorenal syndrome with anasarca Ascites - likely from above FEN - Cardiac diet PPX - heparin FULL CODE Dispo - inpatient for acute CHF Justicifation of Admission Dx: Justifications for Admission: Justification of Admission Dx: Yes CHF: Sev. Electrolyte Abnormal SYLVIA PASTOR MD Jul 31, 2019 10:29
[2019-07-31] MEDS ORDERED: MAGNESIUM SULFATE 2GM 50 ML IV ONE (10:30)
[2019-07-31] MEDS ORDERED: ACETAMINOPHEN 325 MG TABLET. PO PRN (10:30)
[2019-07-31] MEDS ORDERED: ALBUTEROL SULFATE 2.5 MG/3 ML NEBU. NEB PRN (10:30)
[2019-07-31] MEDS ORDERED: BUMETANIDE 1 MG/4 ML VIAL. IV SCH (10:30)
[2019-07-31] MEDS ORDERED: ONDANSETRON PF 4 MG/2 ML VIAL. IV PRN (10:30)
[2019-07-31] MEDS ORDERED: POLYETHYLENE GLYCOL 3350 17 GM PACKET. PO PRN (10:30)
--- NOTE | 2019-07-31 10:32 | PDOC2 ---
CARDIAC CONSULT DATE OF CONSULT Date of Consult DATE: 07/31/19 TIME: 10:16 REASON FOR CONSULT Reason for Consult: CHF REFERRING PHYSICIAN Referring Physician: Radha SOURCE Source: Chart review, Patient HISTORY OF PRESENT ILLNESS HISTORY OF PRESENT ILLNESS This is a pleasant 39 yo male admitted for complains of shortness of breath and swelling. Reports that starting last week he has been feeling like he has been gaining wt and and swelling. His SOA is getting worse and and positive for orthopnea. He is also worried about sleep apnea. He failed to follow up in our office but he did come to the office unannounced trying to get more samples for his entersto and also ran out of [employer]. He ran out of [employer] about 2 months ago. also ran out of [facility]. Denies any chest pain, nausea or vomiting. No palpitations and presently his legs are not as swollen as before. He stopped using meth 2 weeks ago but still smoke tobacco. He has cut down on his drinking alcohol. Based on his description he still overhydrates due to dry mouth but not as much as he was used to doing and just now started taking altoids. PAST MEDICAL HISTORY Past Medical History Cardiovascular: CAD, CHF (ICM/NICM), HTN, [place], Hyperlipidemia, Valve insufficiency moderate MR/TR Pulmonary: Asthma Psych: Anxiety, substance abuse Musculoskeletal: Other (none) Rheumatologic: No pertinent hx Infectious disease: No pertinent hx, Other (HIV) ENT: No pertinent hx Renal/: No pertinent hx Endocrine: No pertinent hx Dermatology: No pertinent hx PAST SURGICAL HISTORY Past Surgical History PCI/stent FAMILY HISTORY Family History: Coronary Artery Disease (mother) SOCIAL HISTORY Social History Smoke: <1 pack per day ALCOHOL: heavy alcoholism Drugs: meth use Lives: with Family CURRENT MEDICATIONS CURRENT MEDICATIONS Current Medications Medications (Trade) Dose Ordered Sig/Wilbur Route PRN Reason Start Time Stop Time Status Last Admin Dose Admin Diphenhydramine HCl (Benadryl) 25 mg 1X ONCE IVP 07/30/19 19:45 07/30/19 19:46 DC 07/30/19 19:51 Methylprednisolone Sodium Succinate (SOLU-Medrol 125MG VIAL) 125 mg 1X ONCE IV 07/30/19 19:45 07/30/19 19:46 DC 07/30/19 19:51 Iohexol (Omnipaque 350 Mg/ml) 75 ml 1X ONCE IV 07/30/19 21:30 6/8/20 21:31 DC 07/30/19 21:31 Furosemide (Lasix) 60 mg 1X ONCE IVP 07/30/19 23:00 07/30/19 23:01 DC 07/30/19 23:34 Potassium Chloride (Klor-Con) 40 meq 1X ONCE PO 07/30/19 23:00 07/30/19 23:01 DC 07/30/19 23:34 Fentanyl Citrate (Fentanyl 2ml Vial) 50 mcg 1X ONCE IVP 07/30/19 23:00 07/30/19 23:01 DC 07/30/19 23:33 Morphine Sulfate (Morphine Sulfate) 4 mg PRN Q2HR PRN IV PAIN 07/30/19 23:15 07/31/19 23:14 07/31/19 03:48 ALLERGIES ALLERGIES: Coded Allergies: No Known Drug Allergies (Unverified , 08/01/16) ROS Review of System 14 point ROS evaluated with pertinent positives noted per HPI PHYSICAL EXAM General: Alert, Oriented X3, Cooperative, No acute distress HEENT: Atraumatic, Mucous membr. moist/pink Lungs: Clear to auscultation, Normal air movement Heart: Regular rate (SR), Normal S1, Normal S2, Other (3/6 systolic murmur to LLS border) Abdomen: Soft Extremities: No cyanosis, Other (1+ bilateral Le pitting edema) Skin: No breakdown, No significant lesion Neuro: Normal speech, Sensation intact Psych/Mental Status: Mental status NL, Mood NL MUSCULOSKELETAL: Osteoarthritic changes both hands VITALS/I&O VITALS/I&O: Vital Signs Date Time Temp Pulse Resp B/P (MAP) Pulse Ox O2 Delivery O2 Flow Rate FiO2 07/31/19 08:00 Room Air 07/31/19 07:00 97.7 102 20 107/73 (84) 94 97.7 07/30/19 23:38 4.0 I & O 0 07/30/19 07/30/19 07/31/19 15:00 23:00 07:00 Intake Total 1000 ml Output Total 1 ml Balance 999 ml LABS Lab: Laboratory Tests Test 07/30/19 19:08 07/30/19 19:45 07/31/19 02:25 07/31/19 05:20 Urine Collection Type Unknown Urine Color Yellow Urine Clarity Clear Urine pH 7.0 (<5.0-8.0) Urine Specific [place] 1.010 (1.000-1.030) Urine Protein 100 mg/dL (NEG-TRACE) Urine Glucose (UA) Negative mg/dL (NEG) Urine Ketones (Stick) Negative mg/dL (NEG) Urine Blood Negative (NEG) Urine Nitrite Negative (NEG) Urine Bilirubin Negative (NEG) Urine Urobilinogen Dipstick 1.0 mg/dL (0.2 mg/dL) Urine Leukocyte Esterase Trace (NEG) Urine RBC 1-2 /HPF (0-2) Urine WBC Occ /HPF (0-4) Urine Squamous Epithelial Cells Occ /LPF Urine Bacteria 0 /HPF (0-FEW) Urine Opiates Screen Neg (NEG) Urine Methadone Screen Neg (NEG) Urine Barbiturates Neg (NEG) Urine Phencyclidine Screen Neg (NEG) Urine Amphetamine/Methamphetamine Neg (NEG) Urine Benzodiazepines Screen Neg (NEG) Urine Cocaine Screen Neg (NEG) Urine Cannabinoids Screen Neg (NEG) Urine Ethyl Alcohol Neg (NEG) White Blood Count 5.4 x10^3/uL (4.0-11.0) Red Blood Count 3.86 x10^6/uL (4.30-5.70) L Hemoglobin 11.9 g/dL (13.0-17.5) L Hematocrit 35.2 % (39.0-53.0) L Mean Corpuscular Volume 91 fL (79-100) Mean Corpuscular Hemoglobin 31 pg (25-35) Mean Corpuscular Hemoglobin Concent 34 g/dL (31-37) Red Cell Distribution Width 21.9 % (11.5-14.5) H Platelet Count 311 x10^3/uL (140-400) Neutrophils (%) (Auto) 58 % (31-73) Lymphocytes (%) (Auto) 33 % (24-48) Monocytes (%) (Auto) 6 % (0-9) Eosinophils (%) (Auto) 2 % (0-3) Basophils (%) (Auto) 1 % (0-3) Neutrophils # (Auto) 3.2 x10^3/uL (1.8-7.7) Lymphocytes # (Auto) 1.8 x10^3/uL (1.0-4.8) Monocytes # (Auto) 0.3 x10^3/uL (0.0-1.1) Eosinophils # (Auto) 0.1 x10^3/uL (0.0-0.7) Basophils # (Auto) 0.1 x10^3/uL (0.0-0.2) Segmented Neutrophils % 51 % (35-66) Lymphocytes % 38 % (24-48) Monocytes % 8 % (0-10) Eosinophils % 3 % (0-5) Platelet Estimate Adequate (ADEQUATE) Polychromasia Slight Anisocytosis Mod Macrocytosis Slight Ovalocytes Few D-Dimer (Laurita) 1.21 ug/mlFEU (0.00-0.50) H Sodium Level 139 mmol/L (136-145) Potassium Level 3.0 mmol/L (3.5-5.1) L Chloride Level 103 mmol/L (98-107) Carbon Dioxide Level 27 mmol/L (21-32) Anion Gap 9 (6-14) Blood Urea Nitrogen 22 mg/dL (8-26) Creatinine 1.8 mg/dL (0.7-1.3) H Estimated GFR (Cockcroft-Gault) 51.1 BUN/Creatinine Ratio 12 (6-20) Glucose Level 108 mg/dL (70-99) H Calcium Level 8.4 mg/dL (8.5-10.1) L Magnesium Level 1.6 mg/dL (1.8-2.4) L Total Bilirubin 1.0 mg/dL (0.2-1.0) Aspartate Amino Transferase (AST) 32 U/L (15-37) Alanine Aminotransferase (ALT) 29 U/L (16-63) Alkaline Phosphatase 234 U/L (46-116) H Troponin I Quantitative < 0.017 ng/mL (0.000-0.055) < 0.017 ng/mL (0.000-0.055) < 0.017 ng/mL (0.000-0.055) ZD-Isx-G-Type Natriuretic Peptide 67207 pg/mL (0-124) H Total Protein 7.7 g/dL (6.4-8.2) Albumin 2.8 g/dL (3.4-5.0) L Albumin/Globulin Ratio 0.6 (1.0-1.7) L Thyroid Stimulating Hormone (TSH) 2.253 uIU/mL (0.358-3.74) Ethyl Alcohol Level < 10 mg/dL (0-10) Laboratory Tests 07/30/19 19:45 Laboratory Tests 07/30/19 19:45 ECHOCARDIOGRAM ECHOCARDIOGRAM <Conclusion> The left ventricular systolic function is severely impaired. The Ejection Fraction is 20-25%. Moderate mitral regurgitation. Moderate tricuspid regurgitation with an estimated PAP of 68 mmHg. There is no evidence of significant pericardial effusion. DATE: 11/22/18 1050 STRESS TEST STRESS TEST Conclusion 1. Regadenoson cardioisotope stress test showed large infarct involving the mid to distal anterior wall and the entire apical wall with small amount of helen- infarct ischemia. 2. Severe hypokinesis of the distal anterior wall and akinetic apical wall with ejection fraction calculated at 34%. 3. Low to intermediate risk for cardiac events. DATE: 04/20/18 1329 HEART CATH HEART CATH Findings. Hemodynamics. Aortic pressure 110/60. Coronaries. Left main. The left was a short vessel with no lesions. Left anterior descending. The LAD was a large vessel with a mid total occlusion. Left circumflex. The left circumflex was a moderate size vessel with distal small vessel disease. Right coronary artery. Right coronary was a moderate-sized vessel with a proximal 25% lesion. <Conclusion> ST elevated myocardial infarction secondary to an occluded mid left anterior descending vessel. Successful stenting of the LAD occlusion with a 3.5 x 28 bare metal stent with residual lesion of 0%. Mild disease in the right coronary artery and left circumflex vessels. DATE: 08/02/16 1630 ASSESSMENT/PLAN ASSESSMENT/PLAN 1. Acute on chronic diastolic/systolic CHF:due to overhydration and noncompliance 2. NICM/ICM: NYHA 2. Recent EF at 20% 3. Polydipsia/xerostomia: med induced 4. Tobaccoism 5. Hx of Substance abuse: past hevay vodka use and meth (last use 2 weeks ago) 6. CAD: past stent to LAD, clinically stable 7. HTN: controlled 8. HIV: HAART per PCP 9. HLP 10. Valvular insufficiency: mod TR/MR 11. CKD3 12. Hypokalemia and hypomagnesemia Recommendations 1. High risk for readmission due to poor compliance and follow up. TTE today 2. [facility] is an option and AICD candidate but deferred due to failed optimization/noncompliance and substance abuse. Further HF advanced therapies would be considered pending his outpt compliance. Again encouraged to follow up 3. Reinforced 1500 ml FR, Daily wt and Na control. Reinforced diet and fluid compliance and cessation of meth, ETOH, and tobacco. 4. Reinforced utilization of candy or gum to curb polydipsia. 5. Bumex IV therapy today then PO. Will restart enteresto and zaroxylyn. Replace K and Mg as warranted 6. Secondary preventions measures. Anticipate DC this afternoon CORTNEY LUKE PAPER SAMPLE CLERK Jul 31, 2019 10:32
[2019-07-31 10:37] LABS: CALCIUM 8.6 mg/dL (8.5-10.1); MAGNESIUM 1.8 mg/dL (1.8-2.4); POTASSIUM 3.7 mmol/L (3.5-5.1)
--- NOTE | 2019-07-31 10:41 | NUR ---
SS following for discharge planning. SS reviewed pt chart and discussed with pt RN. Pt is from home and is currently on room air. Pt having some psychosis and positive for opiates. Pt has a past substance abuse history. PAT team consulted for recommendations and evaluation. SS will continue to follow for discharge planning.
[2019-07-31 11:00] VITALS: BP 119/97
[2019-07-31] MEDS: BUMETANIDE 1 MG/4 ML VIAL. IV SCH ×2 (12:04→15:28)
--- NOTE | 2019-07-31 12:33 | NUR ---
SS following up with discharge planning. Eligio from the PAT team met with pt. Pt declined need for treatment. Pt prescribed Paxel and is to follow up with his physician, Dr. Mayes. Pt provided with resources for AA, NA, Sober Living, and RAADAC. SS will continue to follow for discharge planning.
[2019-07-31] MEDS ORDERED: TRAM50TA PO (13:56)
[2019-07-31] MEDS ORDERED: ATOR20TA58 PO (13:56)
[2019-07-31] MEDS ORDERED: PARO40TA3 PO (13:56)
[2019-07-31] MEDS ORDERED: HEPARIN for SUB-Q USE 5,000 UNIT/ML VIAL. SQ SCH (14:00)
[2019-07-31] MEDS ORDERED: hydrALAZINE 10 MG TABLET PO SCH (14:00)
--- NOTE | 2019-07-31 14:00 | PDOC3 ---
Discharge Summary Visit Information Date of Admission: Jul 30, 2019 Date of Discharge: Jul 31, 2019 Admitting Diagnosis: Acute CHF Final Diagnosis Problems Medical Problems: (1) Acute psychosis Status: Acute Brief Hospital Course Allergies Allergies Coded Allergies Type Severity Reaction Last Updated Verified No Known Drug Allergies 08/01/16 No Vital Signs Vital Signs Date Time Temp Pulse Resp B/P (MAP) Pulse Ox O2 Delivery O2 Flow Rate FiO2 07/31/19 13:23 Room Air 07/31/19 11:00 97.5 109 22 119/97 (104) 97 97.5 07/30/19 23:38 4.0 Lab Results Laboratory Tests Test 07/30/19 19:08 07/30/19 19:45 07/31/19 02:25 07/31/19 05:20 Urine Collection Type Unknown Urine Color Yellow Urine Clarity Clear Urine pH 7.0 (<5.0-8.0) Urine Specific [place] 1.010 (1.000-1.030) Urine Protein 100 mg/dL (NEG-TRACE) Urine Glucose (UA) Negative mg/dL (NEG) Urine Ketones (Stick) Negative mg/dL (NEG) Urine Blood Negative (NEG) Urine Nitrite Negative (NEG) Urine Bilirubin Negative (NEG) Urine Urobilinogen Dipstick 1.0 mg/dL (0.2 mg/dL) Urine Leukocyte Esterase Trace (NEG) Urine RBC 1-2 /HPF (0-2) Urine WBC Occ /HPF (0-4) Urine Squamous Epithelial Cells Occ /LPF Urine Bacteria 0 /HPF (0-FEW) Urine Opiates Screen Neg (NEG) Urine Methadone Screen Neg (NEG) Urine Barbiturates Neg (NEG) Urine Phencyclidine Screen Neg (NEG) Urine Amphetamine/Methamphetamine Neg (NEG) Urine Benzodiazepines Screen Neg (NEG) Urine Cocaine Screen Neg (NEG) Urine Cannabinoids Screen Neg (NEG) Urine Ethyl Alcohol Neg (NEG) White Blood Count 5.4 x10^3/uL (4.0-11.0) Red Blood Count 3.86 x10^6/uL (4.30-5.70) Hemoglobin 11.9 g/dL (13.0-17.5) Hematocrit 35.2 % (39.0-53.0) Mean Corpuscular Volume 91 fL (79-100) Mean Corpuscular Hemoglobin 31 pg (25-35) Mean Corpuscular Hemoglobin Concent 34 g/dL (31-37) Red Cell Distribution Width 21.9 % (11.5-14.5) Platelet Count 311 x10^3/uL (140-400) Neutrophils (%) (Auto) 58 % (31-73) Lymphocytes (%) (Auto) 33 % (24-48) Monocytes (%) (Auto) 6 % (0-9) Eosinophils (%) (Auto) 2 % (0-3) Basophils (%) (Auto) 1 % (0-3) Neutrophils # (Auto) 3.2 x10^3/uL (1.8-7.7) Lymphocytes # (Auto) 1.8 x10^3/uL (1.0-4.8) Monocytes # (Auto) 0.3 x10^3/uL (0.0-1.1) Eosinophils # (Auto) 0.1 x10^3/uL (0.0-0.7) Basophils # (Auto) 0.1 x10^3/uL (0.0-0.2) Segmented Neutrophils % 51 % (35-66) Lymphocytes % 38 % (24-48) Monocytes % 8 % (0-10) Eosinophils % 3 % (0-5) Platelet Estimate Adequate (ADEQUATE) Polychromasia Slight Anisocytosis Mod Macrocytosis Slight Ovalocytes Few D-Dimer (Laurita) 1.21 ug/mlFEU (0.00-0.50) Sodium Level 139 mmol/L (136-145) 142 mmol/L (136-145) Potassium Level 3.0 mmol/L (3.5-5.1) 3.7 mmol/L (3.5-5.1) Chloride Level 103 mmol/L (98-107) 104 mmol/L (98-107) Carbon Dioxide Level 27 mmol/L (21-32) 27 mmol/L (21-32) Anion Gap 9 (6-14) 11 (6-14) Blood Urea Nitrogen 22 mg/dL (8-26) 22 mg/dL (8-26) Creatinine 1.8 mg/dL (0.7-1.3) 2.0 mg/dL (0.7-1.3) Estimated GFR (Cockcroft-Gault) 51.1 45.0 BUN/Creatinine Ratio 12 (6-20) Glucose Level 108 mg/dL (70-99) 138 mg/dL (70-99) Calcium Level 8.4 mg/dL (8.5-10.1) 8.6 mg/dL (8.5-10.1) Magnesium Level 1.6 mg/dL (1.8-2.4) 1.8 mg/dL (1.8-2.4) Total Bilirubin 1.0 mg/dL (0.2-1.0) Aspartate Amino Transf (AST/SGOT) 32 U/L (15-37) Alanine Aminotransferase (ALT/SGPT) 29 U/L (16-63) Alkaline Phosphatase 234 U/L (46-116) Troponin I Quantitative < 0.017 ng/mL (0.000-0.055) < 0.017 ng/mL (0.000-0.055) < 0.017 ng/mL (0.000-0.055) NL-Vbf-Q-Type Natriuretic Peptide 07938 pg/mL (0-124) Total Protein 7.7 g/dL (6.4-8.2) Albumin 2.8 g/dL (3.4-5.0) Albumin/Globulin Ratio 0.6 (1.0-1.7) Thyroid Stimulating Hormone (TSH) 2.253 uIU/mL (0.358-3.74) Ethyl Alcohol Level < 10 mg/dL (0-10) Triglycerides Level 93 mg/dL (0-150) Cholesterol Level 153 mg/dL (0-200) LDL Cholesterol, Calculated 96 mg/dL (0-100) VLDL Cholesterol, Calculated 19 mg/dL (0-40) Non-HDL Cholesterol Calculated 115 mg/dL (0-129) HDL Cholesterol 38 mg/dL (40-60) Cholesterol/HDL Ratio 4.0 Laboratory Tests Test 07/30/19 19:08 07/30/19 19:45 07/31/19 02:25 07/31/19 05:20 Urine Collection Type Unknown Urine Color Yellow Urine Clarity Clear Urine pH 7.0 (<5.0-8.0) Urine Specific [place] 1.010 (1.000-1.030) Urine Protein 100 mg/dL (NEG-TRACE) Urine Glucose (UA) Negative mg/dL (NEG) Urine Ketones (Stick) Negative mg/dL (NEG) Urine Blood Negative (NEG) Urine Nitrite Negative (NEG) Urine Bilirubin Negative (NEG) Urine Urobilinogen Dipstick 1.0 mg/dL (0.2 mg/dL) Urine Leukocyte Esterase Trace (NEG) Urine RBC 1-2 /HPF (0-2) Urine WBC Occ /HPF (0-4) Urine Squamous Epithelial Cells Occ /LPF Urine Bacteria 0 /HPF (0-FEW) Urine Opiates Screen Neg (NEG) Urine Methadone Screen Neg (NEG) Urine Barbiturates Neg (NEG) Urine Phencyclidine Screen Neg (NEG) Urine Amphetamine/Methamphetamine Neg (NEG) Urine Benzodiazepines Screen Neg (NEG) Urine Cocaine Screen Neg (NEG) Urine Cannabinoids Screen Neg (NEG) Urine Ethyl Alcohol Neg (NEG) White Blood Count 5.4 x10^3/uL (4.0-11.0) Red Blood Count 3.86 x10^6/uL (4.30-5.70) Hemoglobin 11.9 g/dL (13.0-17.5) Hematocrit 35.2 % (39.0-53.0) Mean Corpuscular Volume 91 fL (79-100) Mean Corpuscular Hemoglobin 31 pg (25-35) Mean Corpuscular Hemoglobin Concent 34 g/dL (31-37) Red Cell Distribution Width 21.9 % (11.5-14.5) Platelet Count 311 x10^3/uL (140-400) Neutrophils (%) (Auto) 58 % (31-73) Lymphocytes (%) (Auto) 33 % (24-48) Monocytes (%) (Auto) 6 % (0-9) Eosinophils (%) (Auto) 2 % (0-3) Basophils (%) (Auto) 1 % (0-3) Neutrophils # (Auto) 3.2 x10^3/uL (1.8-7.7) Lymphocytes # (Auto) 1.8 x10^3/uL (1.0-4.8) Monocytes # (Auto) 0.3 x10^3/uL (0.0-1.1) Eosinophils # (Auto) 0.1 x10^3/uL (0.0-0.7) Basophils # (Auto) 0.1 x10^3/uL (0.0-0.2) Segmented Neutrophils % 51 % (35-66) Lymphocytes % 38 % (24-48) Monocytes % 8 % (0-10) Eosinophils % 3 % (0-5) Platelet Estimate Adequate (ADEQUATE) Polychromasia Slight Anisocytosis Mod Macrocytosis Slight Ovalocytes Few D-Dimer (Laurita) 1.21 ug/mlFEU (0.00-0.50) Sodium Level 139 mmol/L (136-145) 142 mmol/L (136-145) Potassium Level 3.0 mmol/L (3.5-5.1) 3.7 mmol/L (3.5-5.1) Chloride Level 103 mmol/L (98-107) 104 mmol/L (98-107) Carbon Dioxide Level 27 mmol/L (21-32) 27 mmol/L (21-32) Anion Gap 9 (6-14) 11 (6-14) Blood Urea Nitrogen 22 mg/dL (8-26) 22 mg/dL (8-26) Creatinine 1.8 mg/dL (0.7-1.3) 2.0 mg/dL (0.7-1.3) Estimated GFR (Cockcroft-Gault) 51.1 45.0 BUN/Creatinine Ratio 12 (6-20) Glucose Level 108 mg/dL (70-99) 138 mg/dL (70-99) Calcium Level 8.4 mg/dL (8.5-10.1) 8.6 mg/dL (8.5-10.1) Magnesium Level 1.6 mg/dL (1.8-2.4) 1.8 mg/dL (1.8-2.4) Total Bilirubin 1.0 mg/dL (0.2-1.0) Aspartate Amino Transf (AST/SGOT) 32 U/L (15-37) Alanine Aminotransferase (ALT/SGPT) 29 U/L (16-63) Alkaline Phosphatase 234 U/L (46-116) Troponin I Quantitative < 0.017 ng/mL (0.000-0.055) < 0.017 ng/mL (0.000-0.055) < 0.017 ng/mL (0.000-0.055) GG-Yws-K-Type Natriuretic Peptide 00347 pg/mL (0-124) Total Protein 7.7 g/dL (6.4-8.2) Albumin 2.8 g/dL (3.4-5.0) Albumin/Globulin Ratio 0.6 (1.0-1.7) Thyroid Stimulating Hormone (TSH) 2.253 uIU/mL (0.358-3.74) Ethyl Alcohol Level < 10 mg/dL (0-10) Triglycerides Level 93 mg/dL (0-150) Cholesterol Level 153 mg/dL (0-200) LDL Cholesterol, Calculated 96 mg/dL (0-100) VLDL Cholesterol, Calculated 19 mg/dL (0-40) Non-HDL Cholesterol Calculated 115 mg/dL (0-129) HDL Cholesterol 38 mg/dL (40-60) Cholesterol/HDL Ratio 4.0 Brief Hospital Course Mr Perera is a 38 yo male w/ PMHx CAD s/p PCI with stenting, sCHF EF 20%, HTN, NV, Hyperlipidemia, Valve insufficiency MR moderate to severe, Asthma, Anxiety, HIV on HAART who came to ED for complains of SOB and worsening orthopnea, unable to lay down. Reports that he has been having episodes of chest pain / as well. He did have some right chest pain after coughing but otherwise denies. No palpitations, frequent dizziness or leg swelling. No PND but has orthopnea and increasing wheezing. No jaw tightness or arm discomfort. No recent falls or injury. He stopped smoking tobacco last year and denies continuing to use meth and denies drinking currently.. Verbalized compliance with his meds and his symptoms actually improved when he doubled his lasix dose at one point, but last night took 80mg of lasix without improvement. BNP of 11,897, Cr 1.8, CXR - marked cardiomegaly, mild interstitial edema likely secondary to fluid overload. Mg 1.6, K 3, Albumin 2.8. Trop negative. He also notes concerns about having fleas or some other type of bug infestation in his home. He states that he does not have any pets and he believes that someone from the has placed them because he has made enemies with someone in the . Patient states that he feels itching all over his body and states that he tries to wash them off but when he washes his hands for instance he sees bugs falling off and jumping off of his hands. He also indicates that he has had some itching inside of his eyes and states that he had pulled 1 of his eyelids open and a bug flew out of his eye. Patient also complains of shortness of breath and states that his legs have been swelling up more than usual. After 3 doses of IV diuretics he was no longer hallucinating, and is feeling improved. Wants to celebrate his birthday. Follow up will be difficult as his compliance is in question. He is singing [place] songs and has plans to fill his meds and try to follow up with cardiology on d/c Problem list: Acute on chronic diastolic/systolic CHF - BNP >60830, CXR showing classic interstitial pattern, symptomatic. EF 20%. Will diurese. Consult cardiology Acute psychosis - hallucinations were temporary, likely from ETOH use Hypomagnesemia - will treat with IV, check daily K and mag GARRET on CKD - likely vasomotor nephropathy from cardiorenal syndrome, poor renal perfusion with element of ATN. baseline Cr is 1.6. Will monitor Alcohol abuse - at least 2 cups of vodka daily, counseled on cessation Methamphetamine abuse - counseled on cessation, u tox positive previously CAD - past stent to LAD HTN - controlled HIV - on HAART outpatient per his PCP HLD - needs statin therapy Cardiohepatorenal syndrome with anasarca Ascites - likely from above Consults: Cardiology - he is not compliant, does not follow up Greater than 30 minutes spent on d/c Discharge Information Condition at Discharge: Improved Follow Up: Weeks (1) Disposition/Orders: D/C to Home Scheduled Aspirin (Aspir 81) 81 Mg Tablet.dr, 1 TAB PO DAILY, #30 Ref 5 Prescribed by: VINEET LIZAMA on 08/04/16 0805 Last Action: Continued on 07/31/19 1024 by SYLVIA PASTOR MD Atorvastatin Calcium (Atorvastatin Calcium) 20 Mg Tablet, 1 TAB PO DAILY for CHF for 90 Days, #90 Ref 1 Prescribed by: SYLVIA PASTOR MD on 07/31/19 1356 Bumetanide (Bumetanide) 1 Mg Tablet, 1 MG PO [id number] for HEART FAILURE for 30 Days, #60 Prescribed by: ROB MCLAIN MD on 06/08/19 1312 Docusate Sodium (Dok) 100 Mg Capsule, 100 MG PO BID for PREVENT HARD STOOLS for 30 Days, #60 Prescribed by: ROB MCLAIN MD on 06/08/19 1312 Last Action: Continued on 07/31/19 1024 by SYLVIA PASTOR MD Efavirenz/Emtricitab/Tenofovir (Atripla Tablet) 1 Each Tablet, 1 TAB PO DAILY for HIV for 90 Days, #90 Prescribed by: ROB MCLAIN MD on 04/29/19 1702 Last Action: Converted on 07/31/19 1024 by SYLVIA PASTOR MD Hydralazine Hcl (Hydralazine Hcl) 10 Mg Tablet, 10 MG PO TID for blood pressure for 30 Days, #90 Prescribed by: ROB MCLAIN MD on 04/29/19 1242 Last Action: Continued on 07/31/19 1024 by SYLVIA PASTOR MD Isosorbide Mononitrate (Isosorbide Mononitrate Er) 30 Mg Tab.er.24h, 30 MG PO DAILY for angina, heart for 30 Days, #30 Prescribed by: ROB MCLAIN MD on 04/29/19 1242 Last Action: Continued on 07/31/19 1024 by SYLVIA PASTOR MD Metolazone (Metolazone) 2.5 Mg Tablet, 2.5 MG PO DAILY for HEART FAILURE for 30 Days, #30 Prescribed by: ROB MCLAIN MD on 06/08/19 1312 Last Action: Continued on 07/31/19 1024 by SYLVIA PASTOR MD Metoprolol Tartrate (Metoprolol Tartrate) 25 Mg Tablet, 25 MG PO BID for HEART for 30 Days, #60 Prescribed by: ROB MCLAIN MD on 06/08/19 1312 Last Action: Continued on 07/31/19 1024 by SYLVIA PASTOR MD Paroxetine Hcl (Paroxetine Hcl) 40 Mg Tablet, 1 TAB PO DAILY07 for Depression for 90 Days, #90 Prescribed by: SYLVIA PASTOR MD on 07/31/19 1356 Potassium Chloride (Klor-Con M20) 20 Meq Tab.er.prt, 20 MEQ PO DAILYWBKFT for supplement for 10 Days, #10 Prescribed by: ROB MCLAIN MD on 09/04/18 1454 Last Action: Continued on 07/31/19 1024 by SYLVIA PASTOR MD Sacubitril/Valsartan (Entresto 24 mg-26 mg Tablet) 1 Each Tablet, 1 EACH PO BID for CHF, (Reported) Entered as Reported by: DONNA JACOB on 06/23/18 0537 Last Action: Continued on 07/31/19 1024 by SYLVIA PASTOR MD Scheduled PRN Acetaminophen (Tylenol) 325 Mg Tablet, 650 MG PO PRN Q6HRS PRN for mild pain/temp for 30 Days, #60 Prescribed by: ROB MCLAIN MD on 04/29/19 1242 Last Action: Continued on 07/31/19 1024 by SYLVIA PASTOR MD Albuterol Sulfate (Proair Hfa) 8.5 Gm Hfa.aer.ad, 2.5 MG NEB PRN Q4HRS PRN for SHORTNESS OF BREATH for 30 Days, #100 Prescribed by: ROB MCLAIN MD on 04/29/19 1242 Last Action: Continued on 07/31/19 1024 by SYLVIA PASTOR MD Polyethylene Glycol 3350 (Polyethylene Glycol 3350) 17 Gm Powd.pack, 17 GM PO PRN DAILY PRN for CONSTIPATION 1ST CHOICE for 30 Days, #30 Prescribed by: ROB MCLAIN MD on 06/08/19 1312 Last Action: Continued on 07/31/19 1024 by SYLVIA PASTOR MD Tramadol Hcl (Tramadol Hcl) 50 Mg Tablet, 50 MG PO PRN Q6HRS PRN for PAIN for 6 Days, #16 Prescribed by: SYLVIA PASTOR MD on 07/31/19 1357 Justicifation of Admission Dx: Justifications for Admission: Justification of Admission Dx: Yes CHF: Sev. Electrolyte Abnormal SYLVIA PASTOR MD Jul 31, 2019 14:00
[2019-07-31 14:42] VITALS: BP 139/102
[2019-07-31 15:28] VITALS: BP 139/102
[2019-07-31] MEDS ORDERED: DOCUSATE SODIUM 100 MG CAPSULE. PO SCH (21:00)
[2019-07-31] MEDS ORDERED: METOPROLOL TART IMMED RELEASE 25 MG TABLET. PO SCH (21:00)
[2019-07-31] MEDS ORDERED: SACUBITRIL/VALSARTAN 24/26MG TABLET. PO SCH (21:00)
[2019-08-01] MEDS ORDERED: POTASSIUM CHLORIDE 20 MEQ TABLET.ER. PO SCH (08:00)
[2019-08-01] MEDS ORDERED: TENOFOVIR PO SCH (09:00)
[2019-08-01] MEDS ORDERED: EFAVIRENZ PO SCH (09:00)
[2019-08-01] MEDS ORDERED: EMTRICITAB PO SCH (09:00)
[2019-08-01] MEDS ORDERED: ASPIRIN ENTERIC COATED 81 MG TABLET.DR. PO SCH (09:00)
[2019-08-01] MEDS ORDERED: PARoxetine 20 MG TABLET PO SCH (09:00)
[2019-08-01] MEDS ORDERED: ISOSORBIDE MONONITRATE ER 30 MG TAB.ER.24H PO SCH (09:00)
[2019-08-01] MEDS ORDERED: metOLazone 2.5 MG TABLET PO SCH (09:00)
== END 2019-07-31 18:39 | disposition home or self-care (01) | DRG 682 ==
LOC: ER 19:12 → 2 SOUTH 23:12
PROVIDERS: ADMIT Internal Medicine; ATTEND Internal Medicine
DX: N17.0 Acute kidney failure with tubular necrosis (principal); I50.43 Acute on chronic combined systolic (congestive) and diastolic (congestive) heart failure; I13.0 Hypertensive heart and chronic kidney disease with heart failure and stage 1 through stage 4 chronic kidney disease, or unspecified chronic kidney disease; F23 Brief psychotic disorder; R18.8 Other ascites; I42.8 Other cardiomyopathies; E78.5 Hyperlipidemia, unspecified; E83.42 Hypomagnesemia; E87.6 Hypokalemia; F10.20 Alcohol dependence, uncomplicated; F15.90 Other stimulant use, unspecified, uncomplicated; F17.210 Nicotine dependence, cigarettes, uncomplicated; F19.10 Other psychoactive substance abuse, uncomplicated; F41.9 Anxiety disorder, unspecified; I25.10 Atherosclerotic heart disease of native coronary artery without angina pectoris; J45.909 Unspecified asthma, uncomplicated; K11.7 Disturbances of salivary secretion; N18.3 Chronic kidney disease, stage 3 (moderate); R63.1 Polydipsia; Z21 Asymptomatic human immunodeficiency virus [HIV] infection status; Z79.899 Other long term (current) drug therapy; Z82.49 Family history of ischemic heart disease and other diseases of the circulatory system; Z91.19 Patient's noncompliance with other medical treatment and regimen; Z98.61 Coronary angioplasty status; Z71.51 Drug abuse counseling and surveillance of drug abuser; I25.2 Old myocardial infarction
CPT/HCPCS: 36415; 71045; 71275; 80048; 80053; 80061; 80307; 81001; 83735; 83880; 84443; 84484; 85007; 85025; 85379; 87086; 94640; 96374; 96375; G0480; J1200; J1940; J2270; J2930; J3010; J3475; J3490; Q9967; 99285-25; G0378

== ENCOUNTER 2019-08-20 23:27 | Emergency (ER) | payer MEDICARE, OTHER ==
[~2019-08-20] VITALS: Ht 175.3 cm; Wt 77.7 kg
[~2019-08-20 23:27] MED LIST changes: +ATOR20TA58 PO; +TRAM50TA PO
[2019-08-20 23:53] LABS: BASO # 0.1 x10^3/uL (0.0-0.2); BASO % 1 % (0-3); EOS # 0.2 x10^3/uL (0.0-0.7); EOS % 3 % (0-3); HEMATOCRIT 38.8 % (39.0-53.0); HEMOGLOBIN 12.5 g/dL (13.0-17.5); LYMPH # 1.7 x10^3/uL (1.0-4.8); LYMPH % 24 % (24-48); MEAN CORPUSCULAR HEMOGLOBIN 30 pg (25-35); MEAN CORPUSCULAR HGB CONC 32 g/dL (31-37); MEAN CORPUSCULAR VOLUME 94 fL (79-100); MONO # 0.4 x10^3/uL (0.0-1.1); MONO % 5 % (0-9); NEUT # 4.9 x10^3/uL (1.8-7.7); NEUT % 68 % (31-73); PLATELET COUNT 338 x10^3/uL (140-400); RED BLOOD COUNT 4.13 x10^6/uL (4.30-5.70); RED CELL DISTRIBUTION WIDTH 21.6 % (11.5-14.5); WHITE BLOOD COUNT 7.2 x10^3/uL (4.0-11.0)
[2019-08-21 00:03] LABS: PLT ESTIMATE ADEQUATE (ADEQUATE)
[2019-08-21 00:04] LABS: ANISOCYTOSIS MOD; POLYCHROMASIA SLIGHT
[2019-08-21 00:12] LABS: CALCIUM 8.9 mg/dL (8.5-10.1); POTASSIUM 3.3 mmol/L (3.5-5.1)
[2019-08-21 00:18] LABS: ALBUMIN 2.8 g/dL (3.4-5.0); ALBUMIN/GLOBULIN RATIO 0.5 (1.0-1.7); TOTAL PROTEIN 7.9 g/dL (6.4-8.2)
[2019-08-21] MEDS ORDERED: KETOROLAC 30 MG/ML VIAL. IVP ONE (00:30)
[2019-08-21] MEDS ORDERED: BUMETANIDE 2.5 MG/10 ML VIAL. IV ONE (00:45)
[2019-08-21] MEDS ORDERED: BUMETANIDE 1 MG/4 ML VIAL. IV ONE (00:45)
--- NOTE | 2019-08-21 01:08 | RAD ---
AP chest. HISTORY: Short of breath AP view was taken of the chest. The heart is enlarged. There is mild vascular congestion. There is no pleural effusion. There are no confluent infiltrates. IMPRESSION: 1. Cardiomegaly. 2. Mild vascular congestion. 3. No confluent infiltrates. Electronically signed by: Brando Portillo MD (08/21/2019 1:05 AM) [id number]
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
[2019-08-21] MEDS ORDERED: FURO-68 PO (02:06)
[2019-08-21 02:18] VITALS: BP 147/88
--- NOTE | 2019-08-21 10:19 | EKG ---
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
== END 2019-08-21 02:18 | disposition home or self-care (01) ==
LOC: ER 23:27
DX: I50.9 Heart failure, unspecified (principal); R06.02 Shortness of breath; R07.89 Other chest pain; R05 Cough; I11.9 Hypertensive heart disease without heart failure; F17.200 Nicotine dependence, unspecified, uncomplicated; F19.90 Other psychoactive substance use, unspecified, uncomplicated; F10.10 Alcohol abuse, uncomplicated; Z98.890 Other specified postprocedural states
CPT/HCPCS: 36415; 71045; 80053; 83880; 84484; 85025; 93005; 96374; 96375; 99285; J1885; J3490

== ENCOUNTER 2019-10-02 13:03 | Inpatient (IN) | payer MEDICARE, OTHER ==
[~2019-10-02] VITALS: Ht 152.4 cm; Wt 71.9 kg
--- NOTE | 2019-10-02 14:34 | RAD ---
INDICATION: Reason: SOA, COUGH / Spl. Instructions: / History: COMPARISON: August 21, 2019 FINDINGS: Single view of chest obtained. Enlarged cardiomediastinal silhouette. Fullness in the bilateral pulmonary hilum. Patchy interstitial opacities bilaterally with more confluent component of the right lower lung. IMPRESSION: * Interstitial and alveolar opacities bilaterally. This could be secondary to edema or mild infiltrate. * Enlarged cardiomediastinal silhouette. Electronically signed by: Shine Monzon MD (10/02/2019 2:31 PM) [id number]
[2019-10-02 15:10] LABS: BASO # 0.1 x10^3/uL (0.0-0.2); BASO % 1 % (0-3); EOS # 0.1 x10^3/uL (0.0-0.7); EOS % 2 % (0-3); HEMATOCRIT 40.4 % (39.0-53.0); HEMOGLOBIN 13.3 g/dL (13.0-17.5); LYMPH # 1.4 x10^3/uL (1.0-4.8); LYMPH % 25 % (24-48); MEAN CORPUSCULAR HEMOGLOBIN 30 pg (25-35); MEAN CORPUSCULAR HGB CONC 33 g/dL (31-37); MEAN CORPUSCULAR VOLUME 92 fL (79-100); MONO # 0.2 x10^3/uL (0.0-1.1); MONO % 4 % (0-9); NEUT # 3.9 x10^3/uL (1.8-7.7); NEUT % 68 % (31-73); PLATELET COUNT 366 x10^3/uL (140-400); RED BLOOD COUNT 4.38 x10^6/uL (4.30-5.70); RED CELL DISTRIBUTION WIDTH 18.6 % (11.5-14.5); WHITE BLOOD COUNT 5.7 x10^3/uL (4.0-11.0)
[2019-10-02 15:24] LABS: PROTHROMBIN TIME PATIENT 13.5 SEC (11.7-14.0)
[2019-10-02 15:26] LABS: ALBUMIN 2.5 g/dL (3.4-5.0); ALBUMIN/GLOBULIN RATIO 0.5 (1.0-1.7); CALCIUM 9.1 mg/dL (8.5-10.1); CREATININE 1.6 mg/dL (0.7-1.3); GFR 58.2; TOTAL BILIRUBIN 0.6 mg/dL (0.2-1.0)
[2019-10-02 15:28] LABS: POTASSIUM 2.3 mmol/L (3.5-5.1)
[2019-10-02] MEDS ORDERED: MORPHINE SULFATE 4 MG/ML VIAL. IV ONE (15:30)
--- NOTE | 2019-10-02 15:47 | PHYS DOC ---
Past Medical History Past Medical History: Anxiety, Bipolar, CAD, CHF, Depression, NC Additional Past Medical Histor: KYLEE, drugs, alcohol abuse, Past Surgical History: Other Additional Past Surgical Histo: heart stents Smoking Status: Current Every Day Smoker Alcohol Use: Occasionally Drug Use: Methamphetamine Social History Narrative: "I take ice". General Adult EDM: Chief Complaint: SHORTNESS OF BREATH HPI: HPI: Patient is a 39 year old male who presented to ER today for evaluation of chest pain with trouble breathing that been going on for 2 weeks. Patient said the pain is worse with cough or deep breathing or movement of his chest. Patient denies any fever, no cough. Patient denies being exposed to anybody who tested positive for COVID-19. Patient has history of CHF. Patient also has history of coronary artery disease. Review of Systems: Review of Systems: Constitutional: Denies fever or chills. [] Eyes: Denies change in visual acuity. [] HENT: Denies nasal congestion or sore throat. [] Respiratory: Denies cough ] Cardiovascular: Positive for chest pain and trouble breathing GI: Denies abdominal pain, nausea, vomiting, bloody stools or diarrhea. [] : Denies dysuria. [] Musculoskeletal: Denies back pain or joint pain. [] Integument: Denies rash. [] Neurologic: Denies headache, focal weakness or sensory changes. [] Endocrine: Denies polyuria or polydipsia. [] Lymphatic: Denies swollen glands. [] Psychiatric: Denies depression or anxiety. [] Heart Score: HEART Score for Chest Pain: HEART Score for Chest Pain Response (Comments) Value History Slighlty/Non-Suspicious 0 ECG Normal 0 Age < 45 0 Risk Factors >3 Risk Factors or Hx CAD 2 Troponin < Normal Limit 0 Total 2 Risk Factors: Risk Factors: DM, Current or recent (<one month) smoker, HTN, HLP, family history of CAD, obesity. Risk Scores: Score 0 - 3: 2.5% MACE over next 6 weeks - Discharge Home Score 4 - 6: 20.3% MACE over next 6 weeks - Admit for Clinical Observation Score 7 - 10: 72.7% MACE over next 6 weeks - Early Invasive Strategies Current Medications: Current Medications Medications (Trade) Dose Ordered Sig/Wilbur Start Time Stop Time Status Last Admin Dose Admin Morphine Sulfate (Morphine Sulfate) 4 mg 1X ONCE 10/02/19 15:30 10/02/19 15:35 DC 10/02/19 15:41 4 MG Potassium Chloride (Klor-Con) 80 meq 1X ONCE 10/02/19 16:00 10/02/19 16:01 10/02/19 15:41 80 MEQ Allergies: Allergies: Allergies Coded Allergies Type Severity Reaction Last Updated Verified No Known Drug Allergies 08/01/16 No Physical Exam: PE: Constitutional: Well developed, well nourished, no acute distress, non-toxic a ppearance. [] HENT: Normocephalic, atraumatic, bilateral external ears normal, oropharynx moist, no oral exudates, nose normal. [] Eyes: PERRLA, EOMI, conjunctiva normal, no discharge. [] Neck: Normal range of motion, no tenderness, supple, no stridor. [] Cardiovascular: Sinus tachycardia, loud systolic heart murmur Lungs & Thorax: Bilateral breath sounds with crackles at lung bases Abdomen: Bowel sounds normal, soft, no tenderness, no masses, no pulsatile masses. [] Skin: Warm, dry, no erythema, no rash. [] Back: No tenderness, no CVA tenderness. [] Extremities: No tenderness, no cyanosis, no clubbing, ROM intact, no edema. [] Neurologic: Alert and oriented X 3, normal motor function, normal sensory function, no focal deficits noted. [] Psychologic: Affect normal, judgement normal, mood normal. [] Current Patient Data: Labs: Laboratory Tests Test 10/02/19 13:48 White Blood Count 5.7 x10^3/uL (4.0-11.0) Red Blood Count 4.38 x10^6/uL (4.30-5.70) Hemoglobin 13.3 g/dL (13.0-17.5) Hematocrit 40.4 % (39.0-53.0) Mean Corpuscular Volume 92 fL (79-100) Mean Corpuscular Hemoglobin 30 pg (25-35) Mean Corpuscular Hemoglobin Concent 33 g/dL (31-37) Red Cell Distribution Width 18.6 % (11.5-14.5) H Platelet Count 366 x10^3/uL (140-400) Neutrophils (%) (Auto) 68 % (31-73) Lymphocytes (%) (Auto) 25 % (24-48) Monocytes (%) (Auto) 4 % (0-9) Eosinophils (%) (Auto) 2 % (0-3) Basophils (%) (Auto) 1 % (0-3) Neutrophils # (Auto) 3.9 x10^3/uL (1.8-7.7) Lymphocytes # (Auto) 1.4 x10^3/uL (1.0-4.8) Monocytes # (Auto) 0.2 x10^3/uL (0.0-1.1) Eosinophils # (Auto) 0.1 x10^3/uL (0.0-0.7) Basophils # (Auto) 0.1 x10^3/uL (0.0-0.2) Prothrombin Time 13.5 SEC (11.7-14.0) Prothrombin Time INR 1.1 (0.8-1.1) Activated Partial Thromboplast Time 32 SEC (24-38) Sodium Level 138 mmol/L (136-145) Potassium Level 2.3 mmol/L (3.5-5.1) *L Chloride Level 98 mmol/L (98-107) Carbon Dioxide Level 30 mmol/L (21-32) Anion Gap 10 (6-14) Blood Urea Nitrogen 32 mg/dL (8-26) H Creatinine 1.6 mg/dL (0.7-1.3) H Estimated GFR (Cockcroft-Gault) 58.2 BUN/Creatinine Ratio 20 (6-20) Glucose Level 105 mg/dL (70-99) H Calcium Level 9.1 mg/dL (8.5-10.1) Magnesium Level 2.0 mg/dL (1.8-2.4) Total Bilirubin 0.6 mg/dL (0.2-1.0) Aspartate Amino Transferase (AST) 43 U/L (15-37) H Alanine Aminotransferase (ALT) 37 U/L (16-63) Alkaline Phosphatase 257 U/L (46-116) H Troponin I Quantitative 0.042 ng/mL (0.000-0.055) NO-Oje-M-Type Natriuretic Peptide 9295 pg/mL (0-124) H Total Protein 8.0 g/dL (6.4-8.2) Albumin 2.5 g/dL (3.4-5.0) L Albumin/Globulin Ratio 0.5 (1.0-1.7) L Lipase 198 U/L (73-393) Laboratory Tests 10/02/19 13:48 Laboratory Tests 10/02/19 13:48 Vital Signs: Vital Signs Date Time Temp Pulse Resp B/P (MAP) Pulse Ox O2 Delivery O2 Flow Rate FiO2 10/02/19 13:40 97.9 103 16 146/108 (121) 97 Room Air 97.9 EKG: EKG: Interpreted by emergency department physician Rhythm: Sinus tachycardia Rate: 101 Ectopy: No ectopy Conduction: Normal conduction ST Segments: No ST segment elevation] T Waves: No T wave inversion Q Waves: No acute process Clinical Impression: Sinus tachycardia Radiology/Procedures: Radiology/Procedures: [][facility] [address] [place] [address] IMAGING REPORT Signed PATIENT: ALLA JACK LACCOUNT: [id number] : 1980 LOCATION: ER AGE: 39 SEX: M EXAM STATUS: REG ER ORD. PHYSICIAN: NELL TA DO REASON: SOA, COUGH PROCEDURE: CHEST AP ONLY INDICATION: Reason: SOA, COUGH / Spl. Instructions: / History: COMPARISON: August 21, 2019 FINDINGS: Single view of chest obtained. Enlarged cardiomediastinal silhouette. Fullness in the bilateral pulmonary hilum. Patchy interstitial opacities bilaterally with more confluent component of the right lower lung. IMPRESSION: * Interstitial and alveolar opacities bilaterally. This could be secondary to edema or mild infiltrate. * Enlarged cardiomediastinal silhouette. Electronically signed by: Praful Sen MD (10/02/2019 2:31 PM) [id number] DICTATED and SIGNED BY: PRAFUL SEN MD DATE: 10/02/19 1434 Course & Med Decision Making: Course & Med Decision Making Pertinent Labs and Imaging studies reviewed. (See chart for details) Patient is a 39-year-old male who was evaluated in the ER today due to chest pain, sharp and stabbing in nature, this has been going on for 2 weeks. Patient has history of CHF, denies being exposed to anybody who tested positive for COVID-19. Patient was found to have low potassium level, his oxygen saturation in the 90% on room air. Patient will be admitted to hospital for further evaluation and treatment. Discussed with Dr. alvarado who agreed to admit the patient. Heron Disclaimer: Heron Disclaimer: This electronic medical record was generated, in whole or in part, using a voice recognition dictation system. Departure Departure Impression: Primary Impression: Hypokalemia Additional Impressions: Chest pain CHF exacerbation Disposition: ADMITTED INPATIENT Admitting Physician: SIXTO () Condition: STABLE Referrals: MOHINDER GO MD (PCP) Justicifation of Admission Dx: Justifications for Admission: Justification of Admission Dx: Yes CHF: Sev. Electrolyte Abnormal NELL TA DO Oct 02, 2019 15:47
[2019-10-02] MEDS ORDERED: POTASSIUM CHLORIDE 20 MEQ TABLET.ER. PO ONE ×2 (16:00→22:00)
[2019-10-02 16:50] LABS: BILIRUBIN,URINE NEGATIVE (NEG); CLARITY,URINE CLEAR; COLOR,URINE YELLOW; NITRITE,URINE NEGATIVE (NEG); PROTEIN,URINE 30 mg/dL (NEG-TRACE); UROBILINOGEN,URINE 0.2 mg/dL (0.2 mg/dL)
[2019-10-02 17:06] LABS: BACTERIA,URINE FEW /HPF (0-FEW); RBC,URINE 0 /HPF (0-2); SQUAMOUS EPITHELIAL CELL,UR OCC /LPF; WBC,URINE RARE /HPF (0-4)
[2019-10-02] MEDS ORDERED: ONDANSETRON PF 4 MG/2 ML VIAL. IV PRN (18:30)
[2019-10-02] MEDS ORDERED: MORPHINE SULFATE 2 MG/ML VIAL. IV PRN (18:30)
--- NOTE | 2019-10-02 19:17 | PDOC1 ---
History and Physical Date of Admission Date of Admission DATE: 10/02/19 TIME: 19:16 Source Source: Chart review History of Present Illness History of Present Illness Mr Perera is a 38 yo male w/ PMHx CAD s/p PCI with stenting, sCHF EF 20%, HTN, VA, Hyperlipidemia, Valve insufficiency MR moderate to severe, Asthma, Anxiety, HIV on HAART who came to ED for complains of SOB and worsening orthopnea, unable to lay down. Reports that he has been having episodes of chest pain 05/31 as well. he complains of chest pain with trouble breathing that been going on for 2 weeks. Patient said the pain is worse with cough or deep breathing or movement of his chest. He did have some right chest pain after coughing but otherwise denies. No pal pitations, frequent dizziness or leg swelling. I reviewed some prior similar admits in the medical history Past Medical History Cardiovascular: CAD, CHF, HTN, VA, Hyperlipidemia, Valve insufficiency Pulmonary: Asthma Psych: Anxiety Musculoskeletal: Other Rheumatologic: No pertinent hx Infectious disease: No pertinent hx, Other Renal/: No pertinent hx Endocrine: No pertinent hx Past Surgical History Past Surgical History: Other Family History Family History: Coronary Artery Disease Social History Smoke: <1 pack per day ALCOHOL: none Drugs: Other Current Problem List Problem List Problems Medical Problems: (1) Chest pain Status: Acute (2) Hypokalemia Status: Acute Current Medications Current Medications Current Medications Potassium Chloride (Klor-Con) 80 meq 1X ONCE PO Last administered on 10/02/19at 15:41; Start 10/02/19 at 16:00; Stop 10/02/19 at 16:01; Status DC Morphine Sulfate (Morphine Sulfate) 4 mg 1X ONCE IV Last administered on 10/02/19at 15:41; Start 10/02/19 at 15:30; Stop 10/02/19 at 15:35; Status DC Ondansetron HCl (Zofran) 4 mg PRN Q8HRS PRN IV NAUSEA/VOMITING; Start 10/02/19 at 18:30; Stop 10/03/19 at 18:29 Morphine Sulfate (Morphine Sulfate) 2 mg PRN Q2HR PRN IV PAIN; Start 10/02/19 at 18:30; Stop 10/03/19 at 18:29 Active Scripts Active Lasix (Furosemide) 40 Mg Tablet 1 Tab PO DAILY 30 Days Tramadol Hcl 50 Mg Tablet 50 Mg PO PRN Q6HRS PRN 6 Days Atorvastatin Calcium 20 Mg Tablet 1 Tab PO DAILY 90 Days Paroxetine Hcl 40 Mg Tablet 1 Tab PO DAILY07 90 Days Polyethylene Glycol 3350 17 Gm Powd.pack 17 Gm PO PRN DAILY PRN 30 Days Dok (Docusate Sodium) 100 Mg Capsule 100 Mg PO BID 30 Days Metolazone 2.5 Mg Tablet 2.5 Mg PO DAILY 30 Days Bumetanide 1 Mg Tablet 1 Mg PO BID94 30 Days Metoprolol Tartrate 25 Mg Tablet 25 Mg PO BID 30 Days Atripla Tablet (Efavirenz/Emtricitab/Tenofovir) 1 Each Tablet 1 Tab PO DAILY 90 Days Tylenol (Acetaminophen) 325 Mg Tablet 650 Mg PO PRN Q6HRS PRN 30 Days Isosorbide Mononitrate Er (Isosorbide Mononitrate) 30 Mg Tab.er.24h 30 Mg PO DAILY 30 Days Hydralazine Hcl 10 Mg Tablet 10 Mg PO TID 30 Days Proair Hfa (Albuterol Sulfate) 8.5 Gm Hfa.aer.ad 2.5 Mg NEB PRN Q4HRS PRN 30 Days Klor-Con M20 (Potassium Chloride) 20 Meq Tab.er.prt 20 Meq PO DAILYWBKFT 10 Days Aspir 81 (Aspirin) 81 Mg Tablet. 1 Tab PO DAILY Reported Entresto 24 mg-26 mg Tablet (Sacubitril/Valsartan) 1 Each Tablet 1 Each PO BID Allergies Allergies: Coded Allergies: No Known Drug Allergies (Unverified , 08/01/16) ROS General: YES: Fatigue; No: Night Sweats, Malaise, Appetite, Other PSYCHOLOGICAL ROS: YES: Sleep disturbances; No: Anxiety, Behavioral Disorder, Concentration difficultie, Decreased libido, Depression, Disorientation, Hallucinations, Hostility, Irritablity, Memory difficulties, Mood Swings, Obsessive thoughts, Physical abuse, Sexual abuse, Suicidal ideation, Other Eyes: No Blurry vision, No Decreased vision, No Double vision, No Dry eyes, No Excessive tearing, No Eye Pain, No Itchy Eyes, No Loss of vision, No Photophobia, No Scotomata, No Uses contacts, No Uses glasses, No Other Respiratory: YES: Cough, Orthopnea, SOB with excertion Cardiovascular: yes Chest Pain, yes Edema Gastrointestinal: Yes Nausea, Yes Other (poor po intake); No Vomiting, No Abdominal Pain, No Diarrhea, No Constipation, No Melena, No Hematochezia Genitourinary: No Dysuria, No Frequency, No Incontinence, No Hematuria, No Retention, No Discharge, No Urgency, No Pain, No Flank Pain, No Other, No , No , No , No , No , No , No Musculoskeletal: Yes Joint Stiffness; No Gait Disturbance, No Joint Pain, No Joint Swelling, No Muscle Pain, No Muscular Weakness, No Pain In:, No Swelling In:, No Other Neurological: No Behavorial Changes, No Bowel/Bladder ControlChng, No Confusion, No Dizziness, No Gait Disturbance, No Headaches, No Impaired Coord/balance, No Memory Loss, No Numbness/Tingling, No Seizures, No Speech Problems, No Tremors, No Visual Changes, No Weakness, No Other Skin: No Dry Skin, No Eczema, No Hair Changes, No Lumps, No Mole Changes, No Mottling, No Nail Changes, No Pruritus, No Rash, No Skin Lesion Changes, No Other, No Acne Physical Exam General: Alert, Cooperative, moderate distress HEENT: PERRLA, EOMI Lungs: Clear to auscultation, Normal air movement Heart: no thrills, no rubs, other (pain to palpation chest wall) Abdomen: Soft (tende,r ) Rectal Exam: not examined Extremities: No clubbing Neuro: Sensation intact Psych/Mental Status: Other (distress, emotional) Vitals Vitals Vital Signs Date Time Temp Pulse Resp B/P (MAP) Pulse Ox O2 Delivery O2 Flow Rate FiO2 10/02/19 16:26 94 134/87 (103) 91 10/02/19 13:40 97.9 16 Room Air 97.9 Labs Labs Laboratory Tests Test 10/02/19 13:48 10/02/19 16:40 White Blood Count 5.7 x10^3/uL (4.0-11.0) Red Blood Count 4.38 x10^6/uL (4.30-5.70) Hemoglobin 13.3 g/dL (13.0-17.5) Hematocrit 40.4 % (39.0-53.0) Mean Corpuscular Volume 92 fL (79-100) Mean Corpuscular Hemoglobin 30 pg (25-35) Mean Corpuscular Hemoglobin Concent 33 g/dL (31-37) Red Cell Distribution Width 18.6 % (11.5-14.5) Platelet Count 366 x10^3/uL (140-400) Neutrophils (%) (Auto) 68 % (31-73) Lymphocytes (%) (Auto) 25 % (24-48) Monocytes (%) (Auto) 4 % (0-9) Eosinophils (%) (Auto) 2 % (0-3) Basophils (%) (Auto) 1 % (0-3) Neutrophils # (Auto) 3.9 x10^3/uL (1.8-7.7) Lymphocytes # (Auto) 1.4 x10^3/uL (1.0-4.8) Monocytes # (Auto) 0.2 x10^3/uL (0.0-1.1) Eosinophils # (Auto) 0.1 x10^3/uL (0.0-0.7) Basophils # (Auto) 0.1 x10^3/uL (0.0-0.2) Prothrombin Time 13.5 SEC (11.7-14.0) Prothromb Time International Ratio 1.1 (0.8-1.1) Activated Partial Thromboplast Time 32 SEC (24-38) Sodium Level 138 mmol/L (136-145) Potassium Level 2.3 mmol/L (3.5-5.1) Chloride Level 98 mmol/L (98-107) Carbon Dioxide Level 30 mmol/L (21-32) Anion Gap 10 (6-14) Blood Urea Nitrogen 32 mg/dL (8-26) Creatinine 1.6 mg/dL (0.7-1.3) Estimated GFR (Cockcroft-Gault) 58.2 BUN/Creatinine Ratio 20 (6-20) Glucose Level 105 mg/dL (70-99) Calcium Level 9.1 mg/dL (8.5-10.1) Magnesium Level 2.0 mg/dL (1.8-2.4) Total Bilirubin 0.6 mg/dL (0.2-1.0) Aspartate Amino Transf (AST/SGOT) 43 U/L (15-37) Alanine Aminotransferase (ALT/SGPT) 37 U/L (16-63) Alkaline Phosphatase 257 U/L (46-116) Troponin I Quantitative 0.042 ng/mL (0.000-0.055) GY-Man-K-Type Natriuretic Peptide 9295 pg/mL (0-124) Total Protein 8.0 g/dL (6.4-8.2) Albumin 2.5 g/dL (3.4-5.0) Albumin/Globulin Ratio 0.5 (1.0-1.7) Lipase 198 U/L (73-393) Urine Collection Type Void Urine Color Yellow Urine Clarity Clear Urine pH 7.0 (<5.0-8.0) Urine Specific [place] <=1.005 (1.000-1.030) Urine Protein 30 mg/dL (NEG-TRACE) Urine Glucose (UA) Negative mg/dL (NEG) Urine Ketones (Stick) Negative mg/dL (NEG) Urine Blood Negative (NEG) Urine Nitrite Negative (NEG) Urine Bilirubin Negative (NEG) Urine Urobilinogen Dipstick 0.2 mg/dL (0.2 mg/dL) Urine Leukocyte Esterase Negative (NEG) Urine RBC 0 /HPF (0-2) Urine WBC Rare /HPF (0-4) Urine Squamous Epithelial Cells Occ /LPF Urine Bacteria Few /HPF (0-FEW) Laboratory Tests Test 10/02/19 13:48 10/02/19 16:40 White Blood Count 5.7 x10^3/uL (4.0-11.0) Red Blood Count 4.38 x10^6/uL (4.30-5.70) Hemoglobin 13.3 g/dL (13.0-17.5) Hematocrit 40.4 % (39.0-53.0) Mean Corpuscular Volume 92 fL (79-100) Mean Corpuscular Hemoglobin 30 pg (25-35) Mean Corpuscular Hemoglobin Concent 33 g/dL (31-37) Red Cell Distribution Width 18.6 % (11.5-14.5) Platelet Count 366 x10^3/uL (140-400) Neutrophils (%) (Auto) 68 % (31-73) Lymphocytes (%) (Auto) 25 % (24-48) Monocytes (%) (Auto) 4 % (0-9) Eosinophils (%) (Auto) 2 % (0-3) Basophils (%) (Auto) 1 % (0-3) Neutrophils # (Auto) 3.9 x10^3/uL (1.8-7.7) Lymphocytes # (Auto) 1.4 x10^3/uL (1.0-4.8) Monocytes # (Auto) 0.2 x10^3/uL (0.0-1.1) Eosinophils # (Auto) 0.1 x10^3/uL (0.0-0.7) Basophils # (Auto) 0.1 x10^3/uL (0.0-0.2) Prothrombin Time 13.5 SEC (11.7-14.0) Prothromb Time International Ratio 1.1 (0.8-1.1) Activated Partial Thromboplast Time 32 SEC (24-38) Sodium Level 138 mmol/L (136-145) Potassium Level 2.3 mmol/L (3.5-5.1) Chloride Level 98 mmol/L (98-107) Carbon Dioxide Level 30 mmol/L (21-32) Anion Gap 10 (6-14) Blood Urea Nitrogen 32 mg/dL (8-26) Creatinine 1.6 mg/dL (0.7-1.3) Estimated GFR (Cockcroft-Gault) 58.2 BUN/Creatinine Ratio 20 (6-20) Glucose Level 105 mg/dL (70-99) Calcium Level 9.1 mg/dL (8.5-10.1) Magnesium Level 2.0 mg/dL (1.8-2.4) Total Bilirubin 0.6 mg/dL (0.2-1.0) Aspartate Amino Transf (AST/SGOT) 43 U/L (15-37) Alanine Aminotransferase (ALT/SGPT) 37 U/L (16-63) Alkaline Phosphatase 257 U/L (46-116) Troponin I Quantitative 0.042 ng/mL (0.000-0.055) KW-Aiu-G-Type Natriuretic Peptide 9295 pg/mL (0-124) Total Protein 8.0 g/dL (6.4-8.2) Albumin 2.5 g/dL (3.4-5.0) Albumin/Globulin Ratio 0.5 (1.0-1.7) Lipase 198 U/L (73-393) Urine Collection Type Void Urine Color Yellow Urine Clarity Clear Urine pH 7.0 (<5.0-8.0) Urine Specific [place] <=1.005 (1.000-1.030) Urine Protein 30 mg/dL (NEG-TRACE) Urine Glucose (UA) Negative mg/dL (NEG) Urine Ketones (Stick) Negative mg/dL (NEG) Urine Blood Negative (NEG) Urine Nitrite Negative (NEG) Urine Bilirubin Negative (NEG) Urine Urobilinogen Dipstick 0.2 mg/dL (0.2 mg/dL) Urine Leukocyte Esterase Negative (NEG) Urine RBC 0 /HPF (0-2) Urine WBC Rare /HPF (0-4) Urine Squamous Epithelial Cells Occ /LPF Urine Bacteria Few /HPF (0-FEW) VTE Prophylaxis Ordered VTE Prophylaxis Devices: No VTE Pharmacological Prophylaxi: Yes Assessment/Plan Assessment/Plan acute CHF exacerbation, systolic failure critcal hypokalemia severe malnutrition shortness of breath chest pain, for over a week, from prior cough, pain, and weakness HIV asthma, nebs, admit, CV consult, some pain control Justicifation of Admission Dx: Justifications for Admission: Justification of Admission Dx: Yes CHF: Sev. Electrolyte Abnormal KIRK ZIMMER MD Oct 02, 2019 19:17
[2019-10-02] MEDS ORDERED: ALBUTEROL SULFATE 2.5 MG/3 ML NEBU. NEB PRN (19:30)
[2019-10-02] MEDS ORDERED: ELECTROLYTE (NON-ICU) PROTOCOL MC PRN (19:30)
[2019-10-02] MEDS ORDERED: ACETAMINOPHEN 325 MG TABLET. PO PRN (19:30)
[2019-10-02] MEDS ORDERED: POLYETHYLENE GLYCOL 3350 17 GM PACKET. PO PRN (19:30)
[2019-10-02] MEDS: ENOXAPARIN 40 MG/0.4 ML SYRINGE. SQ SCH (22:32)
[2019-10-02] MEDS: ATORVASTATIN CALCIUM 20 MG TABLET PO SCH (22:33)
[2019-10-02] MEDS: SACUBITRIL/VALSARTAN 24/26MG TABLET. PO SCH (22:33)
[2019-10-02] MEDS: METOPROLOL TART IMMED RELEASE 25 MG TABLET. PO SCH (22:33)
[2019-10-02] MEDS: DOCUSATE SODIUM 100 MG CAPSULE. PO SCH (22:34)
[2019-10-02] MEDS: hydrALAZINE 10 MG TABLET PO SCH (22:34)
[2019-10-02 23:00] VITALS: BP 105/74
[2019-10-02] MEDS: oxyCODONE/APAP 5/325 1 TAB TABLET PO PRN (23:00)
[2019-10-03] VITALS (8 sets, daily range): BP systolic 75–128; BP diastolic 43–85
[2019-10-03 05:27] LABS: CALCIUM 9.1 mg/dL (8.5-10.1)
[2019-10-03 05:31] LABS: POTASSIUM 2.9 mmol/L (3.5-5.1)
--- NOTE | 2019-10-03 05:37 | NUR ---
Around 0530 lab called w/ a critical K+ of 2.9. The 's answering service called around 0533. Dr. Michaels just called back and ordered 40 mEq of K+ for breakfast and another dose for lunch.
[2019-10-03] MEDS: POTASSIUM CHLORIDE 20 MEQ TABLET.ER. PO SCH (05:47)
--- NOTE | 2019-10-03 07:07 | NUR ---
Notified 's answering service about consult.
[2019-10-03] MEDS ORDERED: POTASSIUM CHLORIDE 20 MEQ TABLET.ER. PO ONE ×3 (08:00→16:30)
[2019-10-03] MEDS: ASPIRIN ENTERIC COATED 81 MG TABLET.DR. PO SCH (08:58)
[2019-10-03] MEDS: PARoxetine 20 MG TABLET PO SCH (09:00)
[2019-10-03] MEDS ORDERED: BUMETANIDE 1 MG TABLET. PO SCH (09:00)
[2019-10-03] MEDS ORDERED: EFAVIRENZ PO SCH (09:00)
[2019-10-03] MEDS: FUROSEMIDE 40 MG TABLET. PO SCH (09:00)
[2019-10-03] MEDS: METOPROLOL TART IMMED RELEASE 25 MG TABLET. PO SCH ×2 (09:00→20:25)
[2019-10-03] MEDS ORDERED: EMTRICITAB PO SCH (09:00)
[2019-10-03] MEDS: LIDOCAINE (700MG/PATCH) PATCH. TD SCH ×2 (09:00→10:00)
[2019-10-03] MEDS ORDERED: metOLazone 2.5 MG TABLET PO SCH (09:00)
[2019-10-03] MEDS: ISOSORBIDE MONONITRATE ER 30 MG TAB.ER.24H PO SCH (09:00)
[2019-10-03] MEDS: SACUBITRIL/VALSARTAN 24/26MG TABLET. PO SCH (09:00)
[2019-10-03] MEDS: hydrALAZINE 10 MG TABLET PO SCH ×2 (09:00→13:16)
[2019-10-03] MEDS ORDERED: TENOFOVIR PO SCH (09:00)
[2019-10-03] MEDS: DOCUSATE SODIUM 100 MG CAPSULE. PO SCH ×2 (09:01→20:11)
[2019-10-03] MEDS: oxyCODONE/APAP 5/325 1 TAB TABLET PO PRN ×4 (09:01→22:40)
--- NOTE | 2019-10-03 09:04 | PDOC2 ---
CORTNEY LUKE COMMUNITY ENGAGEMENT MANAGER 10/03/19 0904: CARDIAC CONSULT DATE OF CONSULT Date of Consult DATE: 10/03/19 TIME: 08:44 REASON FOR CONSULT Reason for Consult: CHF REFERRING PHYSICIAN Referring Physician: Brando SOURCE Source: Chart review, Patient HISTORY OF PRESENT ILLNESS HISTORY OF PRESENT ILLNESS This is a 39 yo male admitted for complains of chest pain. This is described as stabbing pain to right chest duplicated with deep breathing and coughing. Also this is positional. No SOA per se but just could not breath deep due to pain. He continues to smoke tobacco, smokes meth and marijuana. He continues to drink significant amount of water not comlpying with fluid restriction and drank whiskey last night about 1 pint and he does this when he is stressed. Reports that he complies with his medications and has not ran out of any. He is known to me and has had multiple readmission and difficult to optimize due to continued substance abuse. He has been coughing and started to have yellow sputum. PAST MEDICAL HISTORY Past Medical History Cardiovascular: CAD, CHF (ICM/NICM), HTN, AL, Hyperlipidemia, Valve insufficiency moderate MR/TR Pulmonary: Asthma Psych: Anxiety, substance abuse Musculoskeletal: Other (none) Rheumatologic: No pertinent hx Infectious disease: No pertinent hx, Other (HIV) ENT: No pertinent hx Renal/: No pertinent hx Endocrine: No pertinent hx Dermatology: No pertinent hx PAST SURGICAL HISTORY Past Surgical History PCI/stent FAMILY HISTORY Family History: Coronary Artery Disease (mother) SOCIAL HISTORY Social History Smoke: <1 pack per day ALCOHOL: heavy alcoholism Drugs: meth use Lives: with Family CURRENT MEDICATIONS CURRENT MEDICATIONS Current Medications Medications (Trade) Dose Ordered Sig/Wilbur Route PRN Reason Start Time Stop Time Status Last Admin Dose Admin Potassium Chloride (Klor-Con) 80 meq 1X ONCE PO 10/02/19 16:00 10/02/19 16:01 DC 10/02/19 15:41 Morphine Sulfate (Morphine Sulfate) 4 mg 1X ONCE IV 10/02/19 15:30 10/02/19 15:35 DC 10/02/19 15:41 Morphine Sulfate (Morphine Sulfate) 2 mg PRN Q2HR PRN IV PAIN 10/02/19 18:30 10/03/19 18:29 10/02/19 23:35 Atorvastatin Calcium (Lipitor) 20 mg QHS PO 10/02/19 21:00 10/02/19 22:33 Docusate Sodium (Colace) 100 mg BID PO 10/02/19 21:00 10/02/19 22:34 Hydralazine HCl (Apresoline) 10 mg TID PO 10/02/19 21:00 10/02/19 22:34 Metoprolol Tartrate (Lopressor) 25 mg BID PO 10/02/19 21:00 10/02/19 22:33 Sacubitril/ Valsartan (Entresto 24 Mg-26 Mg) 1 tab BID PO 10/02/19 21:00 10/02/19 22:33 Potassium Chloride (Klor-Con) 40 meq 1X ONCE PO 10/02/19 22:00 10/02/19 22:01 DC 10/02/19 22:33 Oxycodone/ Acetaminophen (Percocet 5/325) 1 tab PRN Q4HRS PRN PO MODERATE - SEVERE PAIN 10/02/19 20:00 10/02/19 23:00 Enoxaparin Sodium (Lovenox 40mg Syringe) 40 mg Q24H SQ 10/02/19 21:00 10/02/19 22:32 ALLERGIES ALLERGIES: Coded Allergies: No Known Drug Allergies (Unverified , 08/01/16) ROS Review of System 14 point ROS evaluated with pertinent positives noted per HPI PHYSICAL EXAM PHYSICAL EXAM Deferred, conserving PPE, Discussed exam with RN. Pt presently has no edema and no SOA. General: Alert, Oriented X3, Cooperative, No acute distress HEENT: Atraumatic Lungs: Other (diminished) Heart: Regular rate (SR) Abdomen: Soft Extremities: No cyanosis Skin: No rashes Neuro: Normal speech, Sensation intact Psych/Mental Status: Mental status NL, Other (anxious) MUSCULOSKELETAL: No deformity VITALS/I&O VITALS/I&O: Vital Signs Date Time Temp Pulse Resp B/P (MAP) Pulse Ox O2 Delivery O2 Flow Rate FiO2 10/03/19 03:20 97.9 90 19 91/43 (59) 97 Room Air 97.9 I & O 10/02/19 10/02/19 10/03/19 15:00 23:00 07:00 Intake Total 720 ml Output Total 325 ml Balance 395 ml LABS Lab: Laboratory Tests Test 10/02/19 13:48 10/02/19 16:40 10/03/19 03:40 White Blood Count 5.7 x10^3/uL (4.0-11.0) Red Blood Count 4.38 x10^6/uL (4.30-5.70) Hemoglobin 13.3 g/dL (13.0-17.5) Hematocrit 40.4 % (39.0-53.0) Mean Corpuscular Volume 92 fL (79-100) Mean Corpuscular Hemoglobin 30 pg (25-35) Mean Corpuscular Hemoglobin Concent 33 g/dL (31-37) Red Cell Distribution Width 18.6 % (11.5-14.5) H Platelet Count 366 x10^3/uL (140-400) Neutrophils (%) (Auto) 68 % (31-73) Lymphocytes (%) (Auto) 25 % (24-48) Monocytes (%) (Auto) 4 % (0-9) Eosinophils (%) (Auto) 2 % (0-3) Basophils (%) (Auto) 1 % (0-3) Neutrophils # (Auto) 3.9 x10^3/uL (1.8-7.7) Lymphocytes # (Auto) 1.4 x10^3/uL (1.0-4.8) Monocytes # (Auto) 0.2 x10^3/uL (0.0-1.1) Eosinophils # (Auto) 0.1 x10^3/uL (0.0-0.7) Basophils # (Auto) 0.1 x10^3/uL (0.0-0.2) Prothrombin Time 13.5 SEC (11.7-14.0) Prothrombin Time INR 1.1 (0.8-1.1) Activated Partial Thromboplast Time 32 SEC (24-38) Sodium Level 138 mmol/L (136-145) 139 mmol/L (136-145) Potassium Level 2.3 mmol/L (3.5-5.1) *L 2.9 mmol/L (3.5-5.1) *L Chloride Level 98 mmol/L (98-107) 99 mmol/L (98-107) Carbon Dioxide Level 30 mmol/L (21-32) 29 mmol/L (21-32) Anion Gap 10 (6-14) 11 (6-14) Blood Urea Nitrogen 32 mg/dL (8-26) H 31 mg/dL (8-26) H Creatinine 1.6 mg/dL (0.7-1.3) H 2.0 mg/dL (0.7-1.3) H Estimated GFR (Cockcroft-Gault) 58.2 45.0 BUN/Creatinine Ratio 20 (6-20) Glucose Level 105 mg/dL (70-99) H 122 mg/dL (70-99) H Calcium Level 9.1 mg/dL (8.5-10.1) 9.1 mg/dL (8.5-10.1) Magnesium Level 2.0 mg/dL (1.8-2.4) Total Bilirubin 0.6 mg/dL (0.2-1.0) Aspartate Amino Transferase (AST) 43 U/L (15-37) H Alanine Aminotransferase (ALT) 37 U/L (16-63) Alkaline Phosphatase 257 U/L (46-116) H Troponin I Quantitative 0.042 ng/mL (0.000-0.055) RZ-Hbl-T-Type Natriuretic Peptide 9295 pg/mL (0-124) H Total Protein 8.0 g/dL (6.4-8.2) Albumin 2.5 g/dL (3.4-5.0) L Albumin/Globulin Ratio 0.5 (1.0-1.7) L Lipase 198 U/L (73-393) Urine Collection Type Void Urine Color Yellow Urine Clarity Clear Urine pH 7.0 (<5.0-8.0) Urine Specific [place] <=1.005 (1.000-1.030) Urine Protein 30 mg/dL (NEG-TRACE) Urine Glucose (UA) Negative mg/dL (NEG) Urine Ketones (Stick) Negative mg/dL (NEG) Urine Blood Negative (NEG) Urine Nitrite Negative (NEG) Urine Bilirubin Negative (NEG) Urine Urobilinogen Dipstick 0.2 mg/dL (0.2 mg/dL) Urine Leukocyte Esterase Negative (NEG) Urine RBC 0 /HPF (0-2) Urine WBC Rare /HPF (0-4) Urine Squamous Epithelial Cells Occ /LPF Urine Bacteria Few /HPF (0-FEW) Laboratory Tests 10/02/19 13:48 Laboratory Tests 10/02/19 13:48 8/12/20 03:40 ECHOCARDIOGRAM ECHOCARDIOGRAM <Conclusion> The left ventricular systolic function is severely impaired. The Ejection Fraction is 20-25%. Moderate mitral regurgitation. Moderate tricuspid regurgitation with an estimated PAP of 68 mmHg. There is no evidence of significant pericardial effusion. DATE: 11/22/18 1050 STRESS TEST STRESS TEST Conclusion 1. Regadenoson cardioisotope stress test showed large infarct involving the mid to distal anterior wall and the entire apical wall with small amount of helen- infarct ischemia. 2. Severe hypokinesis of the distal anterior wall and akinetic apical wall with ejection fraction calculated at 34%. 3. Low to intermediate risk for cardiac events. DATE: 04/20/18 1329 ASSESSMENT/PLAN ASSESSMENT/PLAN 1. Acute on chronic diastolic/systolic CHF:due to overhydration and noncompliance. SOA better. 2. NICM/ICM: NYHA 2. Recent EF at 20% compensated 3. Atypical CP: pleuritic 4. Tobaccoism 5. Continued substance abuse: smoked meth 2 days ago, whiskey 1 pint last night, uses marijuana 6. CAD: past stent to LAD, clinically stable 7. HTN: controlled 8. HIV: HAART per PCP 9. HLP 10. Valvular insufficiency: mod TR/MR 11. GARRET on CKD3: baseline Cr 1.6 to 1.8 12. Hypokalemia 13. Opioid seeking behavior with noncompliance. PUI. 14. Acute bronchitis: per PCP Recommendations 1. High risk for readmission due to poor compliance and follow up. TTE if covid negative. Bumex therapy, replace K 2. Lifevest is an option and AICD candidate but deferred due to failed optimization/noncompliance and substance abuse. Further HF advanced therapies would be considered pending his outpt compliance. Again encouraged to follow up 3. Reinforced 1500 ml FR, Daily wt and Na control. Reinforced diet and fluid compliance and cessation of meth, ETOH, and tobacco. 4. Reinforced utilization of candy or gum to curb polydipsia. 5. Secondary preventions measures. Hold entresto, hydralazine, zaroxylyn for now. Continue metoprolol if BP allows. Anticipate DC tomorrow KORY HERNANDEZ MD 10/03/192108: CARDIAC CONSULT ASSESSMENT/PLAN ASSESSMENT/PLAN Agree with PACKING MACHINE FEEDER's assessment and plan. Continue diuresis for ac on chr systolic HF Tele did not show any significant arrhythmias CAD status clinically stable Plan 2D echo if covid negative We will address the option of AICD as outpatient if he shows compliance with meds and follow ups Thank you for your consultation CORTNEY LUKE APRN Oct 03, 2019 09:04 KORY HERNANDEZ MD Oct 03, 2019 21:09
--- NOTE | 2019-10-03 10:33 | PDOC ---
PROGRESS NOTES Date of Service: DATE: 10/03/19 TIME: 10:33 Chief Complaint Chief Complaint VTE Prophylaxis Ordered VTE Prophylaxis Devices: No VTE Pharmacological Prophylaxi: Yes Assessment/Plan Assessment/Plan acute CHF exacerbation, systolic failure critcal hypokalemia severe malnutrition hypotension, volume depleted shortness of breath chest pain, for over a week, from prior cough, pain, and weakness HIV asthma, nebs, hx alcohol abuse remote cocaine abuse admit, CV consult, some pain control iv fluid support lidoderm patch 37 min pt exam, chart review, > 50% of time spent with exam, chart review, pt care coordination Justicifation of Admission Dx: Justicifation of Admission Dx: Justifications for Admission: Justification of Admission Dx: Yes CHF: Sev. Electrolyte Abnormal History of Present Illness History of Present Illness History of Present Illness History of Present Illness Mr Perera is a 38 yo male w/ PMHx CAD s/p PCI with stenting, sCHF EF 20%, HTN, [place], Hyperlipidemia, Valve insufficiency MR moderate to severe, Asthma, Anxiety, HIV on HAART who came to ED for complains of SOB and worsening orthopnea, unable to lay down. Reports that he has been having episodes of chest pain /10 as well. he complains of chest pain with trouble breathing that been going on for 2 weeks. Patient said the pain is worse with cough or deep breathing or movement of his chest. He did have some right chest pain after coughing but otherwise denies. No palpitations, frequent dizziness or leg swelling. I reviewed some prior similar admits in the medical history Past Medical History Cardiovascular: CAD, CHF, HTN, [place], Hyperlipidemia, Valve insufficiency Pulmonary: Asthma Psych: Anxiety Musculoskeletal: Other Rheumatologic: No pertinent hx Infectious disease: No pertinent hx, Other Renal/: No pertinent hx Endocrine: No pertinent hx Past Surgical History Past Surgical History: Other Family History Family History: Coronary Artery Disease Social History Smoke: <1 pack per day ALCOHOL: none Drugs: Other Vitals Vitals Vital Signs Date Time Temp Pulse Resp B/P (MAP) Pulse Ox O2 Delivery O2 Flow Rate FiO2 10/03/19 09:01 95 Room Air 10/03/19 07:30 98.2 78 20 94/68 (77) 98.2 Physical Exam General: Alert, Cooperative, moderate distress Lungs: Crackles Abdomen: Soft (tende,r ) Extremities: No clubbing Labs LABS TDI E/Lateral E' 13.8 E/Medial E' 27.4 Pulmonary Valve PV Peak Velocity 91.3cm/s PV Peak Grad. 3mmHg Tricuspid Valve TR P. Velocity 348cm/s RAP ESTIMATE 15mmHg TR Peak Gr. 53mmHg RVSP 68mmHg Pulmonary Vein S1 Velocity 52.4cm/s D2 Velocity 63.4cm/s PVa duration 113msec LEFT VENTRICLE The Left Ventricle is mildly dilated. There is mild to moderate concentric left ventricular hypertrophy. The left ventricular systolic function is severely impaired. The Ejection Fraction is 20-25%. There is global severe hypokinesis of the left ventricle. Transmitral Doppler flow pattern is Grade II-pseudonormal filling dynamics. RIGHT VENTRICLE The right ventricle is mildly dilated. There is normal right ventricular wall thickness. Systolic function is mildly reduced. ATRIA The left atrium is borderline dilated. The right atrium is mildly dilated. The interatrial septum is intact with no evidence for an atrial septal defect or patent foramen ovale as noted on 2-D or Doppler imaging. AORTIC VALVE The aortic valve is normal in structure and function. Doppler and Color Flow revealed trace aortic regurgitation. There is no significant aortic valvular stenosis. MITRAL VALVE The mitral valve is normal in structure and function. There is no evidence of mitral valve prolapse. There is no mitral valve stenosis. Doppler and Color-flow revealed moderate mitral regurgitation. TRICUSPID VALVE The tricuspid valve is normal in structure and function. Doppler and Color Flow revealed moderate tricuspid regurgitation with an estimated PAP of 68 mmHg. There is no tricuspid valve stenosis. PULMONIC VALVE The pulmonary valve is normal in structure and function. Doppler and Color Flow revealed moderate pulmonic valvular regurgitation. GREAT VESSELS The aortic root is normal in size. The IVC is dilated and collapses <50% with inspiration. PERICARDIAL EFFUSION There is no evidence of significant pericardial effusion. Critical Notification Critical Value: No <Conclusion> The left ventricular systolic function is severely impaired. The Ejection Fraction is 20-25%. Moderate mitral regurgitation. Moderate tricuspid regurgitation with an estimated PAP of 68 mmHg. There is no evidence of significant pericardial effusion. Signed by : Kory Hernandez, Electronically Approved : 11/22/2018 11:36:47 DICTATED and SIGNED BY: KORY HERNANDEZ MD DATE: 11/22/18 1050 Laboratory Tests Test 10/02/19 13:48 10/02/19 16:40 10/03/19 03:40 White Blood Count 5.7 x10^3/uL (4.0-11.0) Red Blood Count 4.38 x10^6/uL (4.30-5.70) Hemoglobin 13.3 g/dL (13.0-17.5) Hematocrit 40.4 % (39.0-53.0) Mean Corpuscular Volume 92 fL (79-100) Mean Corpuscular Hemoglobin 30 pg (25-35) Mean Corpuscular Hemoglobin Concent 33 g/dL (31-37) Red Cell Distribution Width 18.6 % (11.5-14.5) Platelet Count 366 x10^3/uL (140-400) Neutrophils (%) (Auto) 68 % (31-73) Lymphocytes (%) (Auto) 25 % (24-48) Monocytes (%) (Auto) 4 % (0-9) Eosinophils (%) (Auto) 2 % (0-3) Basophils (%) (Auto) 1 % (0-3) Neutrophils # (Auto) 3.9 x10^3/uL (1.8-7.7) Lymphocytes # (Auto) 1.4 x10^3/uL (1.0-4.8) Monocytes # (Auto) 0.2 x10^3/uL (0.0-1.1) Eosinophils # (Auto) 0.1 x10^3/uL (0.0-0.7) Basophils # (Auto) 0.1 x10^3/uL (0.0-0.2) Prothrombin Time 13.5 SEC (11.7-14.0) Prothromb Time International Ratio 1.1 (0.8-1.1) Activated Partial Thromboplast Time 32 SEC (24-38) Sodium Level 138 mmol/L (136-145) 139 mmol/L (136-145) Potassium Level 2.3 mmol/L (3.5-5.1) 2.9 mmol/L (3.5-5.1) Chloride Level 98 mmol/L (98-107) 99 mmol/L (98-107) Carbon Dioxide Level 30 mmol/L (21-32) 29 mmol/L (21-32) Anion Gap 10 (6-14) 11 (6-14) Blood Urea Nitrogen 32 mg/dL (8-26) 31 mg/dL (8-26) Creatinine 1.6 mg/dL (0.7-1.3) 2.0 mg/dL (0.7-1.3) Estimated GFR (Cockcroft-Gault) 58.2 45.0 BUN/Creatinine Ratio 20 (6-20) Glucose Level 105 mg/dL (70-99) 122 mg/dL (70-99) Calcium Level 9.1 mg/dL (8.5-10.1) 9.1 mg/dL (8.5-10.1) Magnesium Level 2.0 mg/dL (1.8-2.4) Total Bilirubin 0.6 mg/dL (0.2-1.0) Aspartate Amino Transf (AST/SGOT) 43 U/L (15-37) Alanine Aminotransferase (ALT/SGPT) 37 U/L (16-63) Alkaline Phosphatase 257 U/L (46-116) Troponin I Quantitative 0.042 ng/mL (0.000-0.055) GL-Gcj-I-Type Natriuretic Peptide 9295 pg/mL (0-124) Total Protein 8.0 g/dL (6.4-8.2) Albumin 2.5 g/dL (3.4-5.0) Albumin/Globulin Ratio 0.5 (1.0-1.7) Lipase 198 U/L (73-393) Urine Collection Type Void Urine Color Yellow Urine Clarity Clear Urine pH 7.0 (<5.0-8.0) Urine Specific [place] <=1.005 (1.000-1.030) Urine Protein 30 mg/dL (NEG-TRACE) Urine Glucose (UA) Negative mg/dL (NEG) Urine Ketones (Stick) Negative mg/dL (NEG) Urine Blood Negative (NEG) Urine Nitrite Negative (NEG) Urine Bilirubin Negative (NEG) Urine Urobilinogen Dipstick 0.2 mg/dL (0.2 mg/dL) Urine Leukocyte Esterase Negative (NEG) Urine RBC 0 /HPF (0-2) Urine WBC Rare /HPF (0-4) Urine Squamous Epithelial Cells Occ /LPF Urine Bacteria Few /HPF (0-FEW) Assessment and Plan Assessmemt and Plan Problems Medical Problems: (1) Chest pain Status: Acute (2) Hypokalemia Status: Acute Comment Review of Relevant I have reviewed the following items nicolas (where applicable) has been applied. Labs Laboratory Tests Test 10/02/19 13:48 10/02/19 16:40 10/03/19 03:40 White Blood Count 5.7 x10^3/uL (4.0-11.0) Red Blood Count 4.38 x10^6/uL (4.30-5.70) Hemoglobin 13.3 g/dL (13.0-17.5) Hematocrit 40.4 % (39.0-53.0) Mean Corpuscular Volume 92 fL (79-100) Mean Corpuscular Hemoglobin 30 pg (25-35) Mean Corpuscular Hemoglobin Concent 33 g/dL (31-37) Red Cell Distribution Width 18.6 % (11.5-14.5) Platelet Count 366 x10^3/uL (140-400) Neutrophils (%) (Auto) 68 % (31-73) Lymphocytes (%) (Auto) 25 % (24-48) Monocytes (%) (Auto) 4 % (0-9) Eosinophils (%) (Auto) 2 % (0-3) Basophils (%) (Auto) 1 % (0-3) Neutrophils # (Auto) 3.9 x10^3/uL (1.8-7.7) Lymphocytes # (Auto) 1.4 x10^3/uL (1.0-4.8) Monocytes # (Auto) 0.2 x10^3/uL (0.0-1.1) Eosinophils # (Auto) 0.1 x10^3/uL (0.0-0.7) Basophils # (Auto) 0.1 x10^3/uL (0.0-0.2) Prothrombin Time 13.5 SEC (11.7-14.0) Prothromb Time International Ratio 1.1 (0.8-1.1) Activated Partial Thromboplast Time 32 SEC (24-38) Sodium Level 138 mmol/L (136-145) 139 mmol/L (136-145) Potassium Level 2.3 mmol/L (3.5-5.1) 2.9 mmol/L (3.5-5.1) Chloride Level 98 mmol/L (98-107) 99 mmol/L (98-107) Carbon Dioxide Level 30 mmol/L (21-32) 29 mmol/L (21-32) Anion Gap 10 (6-14) 11 (6-14) Blood Urea Nitrogen 32 mg/dL (8-26) 31 mg/dL (8-26) Creatinine 1.6 mg/dL (0.7-1.3) 2.0 mg/dL (0.7-1.3) Estimated GFR (Cockcroft-Gault) 58.2 45.0 BUN/Creatinine Ratio 20 (6-20) Glucose Level 105 mg/dL (70-99) 122 mg/dL (70-99) Calcium Level 9.1 mg/dL (8.5-10.1) 9.1 mg/dL (8.5-10.1) Magnesium Level 2.0 mg/dL (1.8-2.4) Total Bilirubin 0.6 mg/dL (0.2-1.0) Aspartate Amino Transf (AST/SGOT) 43 U/L (15-37) Alanine Aminotransferase (ALT/SGPT) 37 U/L (16-63) Alkaline Phosphatase 257 U/L (46-116) Troponin I Quantitative 0.042 ng/mL (0.000-0.055) TS-Ixu-[id number]-Type Natriuretic Peptide 9295 pg/mL (0-124) Total Protein 8.0 g/dL (6.4-8.2) Albumin 2.5 g/dL (3.4-5.0) Albumin/Globulin Ratio 0.5 (1.0-1.7) Lipase 198 U/L (73-393) Urine Collection Type Void Urine Color Yellow Urine Clarity Clear Urine pH 7.0 (<5.0-8.0) Urine Specific [place] <=1.005 (1.000-1.030) Urine Protein 30 mg/dL (NEG-TRACE) Urine Glucose (UA) Negative mg/dL (NEG) Urine Ketones (Stick) Negative mg/dL (NEG) Urine Blood Negative (NEG) Urine Nitrite Negative (NEG) Urine Bilirubin Negative (NEG) Urine Urobilinogen Dipstick 0.2 mg/dL (0.2 mg/dL) Urine Leukocyte Esterase Negative (NEG) Urine RBC 0 /HPF (0-2) Urine WBC Rare /HPF (0-4) Urine Squamous Epithelial Cells Occ /LPF Urine Bacteria Few /HPF (0-FEW) Laboratory Tests Test 10/02/19 13:48 10/02/19 16:40 10/03/19 03:40 White Blood Count 5.7 x10^3/uL (4.0-11.0) Red Blood Count 4.38 x10^6/uL (4.30-5.70) Hemoglobin 13.3 g/dL (13.0-17.5) Hematocrit 40.4 % (39.0-53.0) Mean Corpuscular Volume 92 fL (79-100) Mean Corpuscular Hemoglobin 30 pg (25-35) Mean Corpuscular Hemoglobin Concent 33 g/dL (31-37) Red Cell Distribution Width 18.6 % (11.5-14.5) Platelet Count 366 x10^3/uL (140-400) Neutrophils (%) (Auto) 68 % (31-73) Lymphocytes (%) (Auto) 25 % (24-48) Monocytes (%) (Auto) 4 % (0-9) Eosinophils (%) (Auto) 2 % (0-3) Basophils (%) (Auto) 1 % (0-3) Neutrophils # (Auto) 3.9 x10^3/uL (1.8-7.7) Lymphocytes # (Auto) 1.4 x10^3/uL (1.0-4.8) Monocytes # (Auto) 0.2 x10^3/uL (0.0-1.1) Eosinophils # (Auto) 0.1 x10^3/uL (0.0-0.7) Basophils # (Auto) 0.1 x10^3/uL (0.0-0.2) Prothrombin Time 13.5 SEC (11.7-14.0) Prothromb Time International Ratio 1.1 (0.8-1.1) Activated Partial Thromboplast Time 32 SEC (24-38) Sodium Level 138 mmol/L (136-145) 139 mmol/L (136-145) Potassium Level 2.3 mmol/L (3.5-5.1) 2.9 mmol/L (3.5-5.1) Chloride Level 98 mmol/L (98-107) 99 mmol/L (98-107) Carbon Dioxide Level 30 mmol/L (21-32) 29 mmol/L (21-32) Anion Gap 10 (6-14) 11 (6-14) Blood Urea Nitrogen 32 mg/dL (8-26) 31 mg/dL (8-26) Creatinine 1.6 mg/dL (0.7-1.3) 2.0 mg/dL (0.7-1.3) Estimated GFR (Cockcroft-Gault) 58.2 45.0 BUN/Creatinine Ratio 20 (6-20) Glucose Level 105 mg/dL (70-99) 122 mg/dL (70-99) Calcium Level 9.1 mg/dL (8.5-10.1) 9.1 mg/dL (8.5-10.1) Magnesium Level 2.0 mg/dL (1.8-2.4) Total Bilirubin 0.6 mg/dL (0.2-1.0) Aspartate Amino Transf (AST/SGOT) 43 U/L (15-37) Alanine Aminotransferase (ALT/SGPT) 37 U/L (16-63) Alkaline Phosphatase 257 U/L (46-116) Troponin I Quantitative 0.042 ng/mL (0.000-0.055) WP-Rzg-C-Type Natriuretic Peptide 9295 pg/mL (0-124) Total Protein 8.0 g/dL (6.4-8.2) Albumin 2.5 g/dL (3.4-5.0) Albumin/Globulin Ratio 0.5 (1.0-1.7) Lipase 198 U/L (73-393) Urine Collection Type Void Urine Color Yellow Urine Clarity Clear Urine pH 7.0 (<5.0-8.0) Urine Specific [place] <=1.005 (1.000-1.030) Urine Protein 30 mg/dL (NEG-TRACE) Urine Glucose (UA) Negative mg/dL (NEG) Urine Ketones (Stick) Negative mg/dL (NEG) Urine Blood Negative (NEG) Urine Nitrite Negative (NEG) Urine Bilirubin Negative (NEG) Urine Urobilinogen Dipstick 0.2 mg/dL (0.2 mg/dL) Urine Leukocyte Esterase Negative (NEG) Urine RBC 0 /HPF (0-2) Urine WBC Rare /HPF (0-4) Urine Squamous Epithelial Cells Occ /LPF Urine Bacteria Few /HPF (0-FEW) Medications Current Medications Potassium Chloride (Klor-Con) 80 meq 1X ONCE PO Last administered on 10/02/19at 15:41; Start 8/11/20 at 16:00; Stop 10/02/19 at 16:01; Status DC Morphine Sulfate (Morphine Sulfate) 4 mg 1X ONCE IV Last administered on 10/02/19at 15:41; Start 10/02/19 at 15:30; Stop 10/02/19 at 15:35; Status DC Ondansetron HCl (Zofran) 4 mg PRN Q8HRS PRN IV NAUSEA/VOMITING; Start 10/02/19 at 18:30; Stop 10/03/19 at 18:29 Morphine Sulfate (Morphine Sulfate) 2 mg PRN Q2HR PRN IV PAIN Last administered on 10/02/19at 23:35; Start 10/02/19 at 18:30; Stop 10/03/19 at 18:29 Acetaminophen (Tylenol) 650 mg PRN Q6HRS PRN PO mild pain/temp; Start 10/02/19 at 19:30 Albuterol Sulfate (Ventolin Neb Soln) 2.5 mg PRN Q4HRS PRN NEB SHORTNESS OF BREATH; Start 10/02/19 at 19:30 Aspirin (Ecotrin) 81 mg DAILY PO Last administered on 10/03/19at 08:58; Start 10/03/19 at 09:00 Atorvastatin Calcium (Lipitor) 20 mg QHS PO Last administered on 10/02/19at 22:33; Start 10/02/19 at 21:00 Bumetanide (Bumex) 1 mg BID94 PO ; Start 10/03/19 at 09:00; Stop 10/02/19 at 20:17; Status DC Docusate Sodium (Colace) 100 mg BID PO Last administered on 10/03/19at 09:01; Start 10/02/19 at 21:00 Furosemide (Lasix) 40 mg DAILY PO ; Start 10/03/19 at 09:00 Hydralazine HCl (Apresoline) 10 mg TID PO Last administered on 10/02/19at 22:34; Start 10/02/19 at 21:00 Isosorbide Mononitrate (Imdur) 30 mg DAILY PO ; Start 10/03/19 at 09:00 Metolazone (Zaroxolyn) 2.5 mg DAILY PO ; Start 10/03/19 at 09:00 Metoprolol Tartrate (Lopressor) 25 mg BID PO Last administered on 10/02/19at 22:33; Start 10/02/19 at 21:00 Polyethylene Glycol (miraLAX PACKET) 17 gm PRN DAILY PRN PO CONSTIPATION 1ST CHOICE Last administered on 10/03/19at 08:55; Start 10/02/19 at 19:30 Potassium Chloride (Klor-Con) 20 meq DAILYWBKFT PO ; Start 10/03/19 at 08:00 Sacubitril/ Valsartan (Entresto 24 Mg-26 Mg) 1 tab BID PO Last administered on 10/02/19at 22:33; Start 10/02/19 at 21:00 Tramadol HCl (Ultram) 50 mg PRN Q6HRS PRN PO PAIN; Start 10/02/19 at 19:30 Non-Formulary Medication (Efavirenz/ Emtricitab/ Tenofovir (Atripla Tablet)) 1 tab DAILY PO ; Start 10/03/19 at 09:00; Status UNV Paroxetine HCl (Paxil) 40 mg DAILY PO Last administered on 10/03/19at 09:00; Start 10/03/19 at 09:00 Potassium Chloride (Klor-Con) 40 meq 1X ONCE PO Last administered on 10/02/19at 22:33; Start 10/02/19 at 22:00; Stop 10/02/19 at 22:01; Status DC Info (Non-Icu Electrolyte Protocol) 1 ea CONT PRN PRN MC PER PROTOCOL; Start 10/02/19 at 19:30 Lidocaine (Lidoderm) 1 patch DAILY TD Last administered on 10/03/19at 09:00; Start 10/03/19 at 09:00 Oxycodone/ Acetaminophen (Percocet 5/325) 1 tab PRN Q4HRS PRN PO MODERATE - SEVERE PAIN Last administered on 10/03/19at 09:01; Start 10/02/19 at 20:00 Enoxaparin Sodium (Lovenox Per Pharmacy Prophylaxis Dosing) 1 each PRN DAILY PRN MC SEE COMMENTS; Start 10/02/19 at 20:00 Enoxaparin Sodium (Lovenox 40mg Syringe) 40 mg Q24H SQ Last administered on 10/02/19at 22:32; Start 10/02/19 at 21:00 Miscellaneous (Lidoderm Patch Removal) 1 ea QHS MC ; Start 10/03/19 at 21:00 Potassium Chloride (Klor-Con) 40 meq 1X ONCE PO Last administered on 10/03/19at 09:00; Start 10/03/19 at 08:00; Stop 10/03/19 at 08:01; Status DC Potassium Chloride (Klor-Con) 40 meq 1X ONCE PO ; Start 10/03/19 at 12:00; Stop 10/03/19 at 12:01 Lidocaine (Lidoderm) 1 patch DAILY TD ; Start 10/03/19 at 10:00 Miscellaneous (Lidoderm Patch Removal) 1 [facility] ; Start 10/03/19 at 21:00 Active Scripts Active Lasix (Furosemide) 40 Mg Tablet 1 Tab PO DAILY 30 Days Tramadol Hcl 50 Mg Tablet 50 Mg PO PRN Q6HRS PRN 6 Days Atorvastatin Calcium 20 Mg Tablet 1 Tab PO DAILY 90 Days Paroxetine Hcl 40 Mg Tablet 1 Tab PO DAILY07 90 Days Polyethylene Glycol 3350 17 Gm Powd.pack 17 Gm PO PRN DAILY PRN 30 Days Dok (Docusate Sodium) 100 Mg Capsule 100 Mg PO BID 30 Days Metolazone 2.5 Mg Tablet 2.5 Mg PO DAILY 30 Days Bumetanide 1 Mg Tablet 1 Mg PO BID94 30 Days Metoprolol Tartrate 25 Mg Tablet 25 Mg PO BID 30 Days Atripla Tablet (Efavirenz/Emtricitab/Tenofovir) 1 Each Tablet 1 Tab PO DAILY 90 Days Tylenol (Acetaminophen) 325 Mg Tablet 650 Mg PO PRN Q6HRS PRN 30 Days Isosorbide Mononitrate Er (Isosorbide Mononitrate) 30 Mg Tab.er.24h 30 Mg PO DAILY 30 Days Hydralazine Hcl 10 Mg Tablet 10 Mg PO TID 30 Days Proair Hfa (Albuterol Sulfate) 8.5 Gm Hfa.aer.ad 2.5 Mg NEB PRN Q4HRS PRN 30 Days Klor-Con M20 (Potassium Chloride) 20 Meq Tab.er.prt 20 Meq PO DAILYWBKFT 10 Days Aspir 81 (Aspirin) 81 Mg Tablet. 1 Tab PO DAILY Reported Entresto 24 mg-26 mg Tablet (Sacubitril/Valsartan) 1 Each Tablet 1 Each PO BID Vitals/I & O Vital Sign - Last 24 Hours 10/02/19 10/02/19 10/02/19 10/02/19 13:40 13:56 14:26 14:56 Temp 97.9 97.9 Pulse 103 98 98 102 Resp 16 B/P (MAP) 146/108 (121) 118/81 (93) 114/84 (94) 115/88 (97) Pulse Ox 97 94 90 96 O2 Delivery Room Air 10/02/19 10/02/19 10/02/19 10/02/19 15:26 15:56 16:26 19:00 Pulse 98 98 94 96 B/P (MAP) 122/84 (97) 125/90 (102) 134/87 (103) 109/73 (85) Pulse Ox 94 91 91 O2 Delivery Room Air 10/02/19 10/02/19 10/02/19 10/02/19 19:30 20:00 20:00 22:15 Pulse 96 96 B/P (MAP) 115/80 (92) 114/75 (88) Pulse Ox 92 O2 Delivery Room Air Room Air Room Air 10/02/19 10/02/19 10/02/19 10/02/19 22:33 22:33 22:34 23:00 Pulse 96 96 96 Resp 16 B/P (MAP) 114/75 114/75 114/75 Pulse Ox 92 O2 Delivery Room Air 10/02/19 10/02/19 10/03/19 10/03/19 23:00 23:35 00:18 00:18 Temp 98.7 98.7 Pulse 87 Resp 17 18 19 19 B/P (MAP) 105/74 (84) Pulse Ox 94 92 92 92 O2 Delivery Room Air 10/03/19 10/03/19 10/03/19 03:20 07:30 09:01 Temp 97.9 98.2 97.9 98.2 Pulse 90 78 Resp 19 20 B/P (MAP) 91/43 (59) 94/68 (77) Pulse Ox 97 95 95 O2 Delivery Room Air Room Air Room Air Intake and Output 10/02/19 10/02/19 10/03/19 15:00 23:00 07:00 Intake Total 720 ml Output Total 325 ml Balance 395 ml Justicifation of Admission Dx: Justifications for Admission: Justification of Admission Dx: Yes CHF: Sev. Electrolyte Abnormal ROB MCLAIN MD Oct 03, 2019 10:33
[2019-10-03] MEDS: IV NORMAL SALINE 1000ML BAG 1,000 ML IV SCH (11:15)
[2019-10-03] MEDS ORDERED: IV NORMAL SALINE 1000ML BAG 1,000 ML IV ONE (14:15)
[2019-10-03 16:48] LABS: AMPHETAMINE/METHAMPHETAMINE POS (NEG); BARBITURATES NEG (NEG); BENZODIAZEPINES NEG (NEG); CANNABINOIDS NEG (NEG); COCAINE NEG (NEG); METHADONE NEG (NEG); OPIATES POS (NEG); PHENCYCLIDINE NEG (NEG)
--- NOTE | 2019-10-03 17:39 | NUR ---
SW following. Reviewed chart and discussed with RN. Pt from home, room air. Pt's blood pressure 94 and potassium level critical. Pt not ready for discharge. SW to follow.
[2019-10-03] MEDS: ATORVASTATIN CALCIUM 20 MG TABLET PO SCH (20:11)
[2019-10-03] MEDS: ENOXAPARIN 40 MG/0.4 ML SYRINGE. SQ SCH (20:11)
[2019-10-03] MEDS: traMADol 50 MG TABLET PO PRN (20:12)
[2019-10-03] MEDS: PATCH REMOVAL. MC SCH ×2 (20:13)
[2019-10-04] MEDS ORDERED: ONDANSETRON PF 4 MG/2 ML VIAL. IVP PRN ×2 (00:30→11:15)
[2019-10-04 04:40] LABS: BASO # 0.1 x10^3/uL (0.0-0.2); BASO % 1 % (0-3); EOS # 0.1 x10^3/uL (0.0-0.7); EOS % 3 % (0-3); HEMATOCRIT 40.2 % (39.0-53.0); HEMOGLOBIN 13.2 g/dL (13.0-17.5); LYMPH # 1.9 x10^3/uL (1.0-4.8); LYMPH % 35 % (24-48); MEAN CORPUSCULAR HEMOGLOBIN 31 pg (25-35); MEAN CORPUSCULAR HGB CONC 33 g/dL (31-37); MEAN CORPUSCULAR VOLUME 93 fL (79-100); MONO # 0.4 x10^3/uL (0.0-1.1); MONO % 7 % (0-9); NEUT % 54 % (31-73); PLATELET COUNT 335 x10^3/uL (140-400); RED BLOOD COUNT 4.32 x10^6/uL (4.30-5.70); RED CELL DISTRIBUTION WIDTH 19.5 % (11.5-14.5); WHITE BLOOD COUNT 5.6 x10^3/uL (4.0-11.0)
[2019-10-04 05:23] LABS: ALBUMIN 2.3 g/dL (3.4-5.0); ALBUMIN/GLOBULIN RATIO 0.5 (1.0-1.7); CREATININE 2.3 mg/dL (0.7-1.3); GFR 38.3; POTASSIUM 3.7 mmol/L (3.5-5.1); TOTAL BILIRUBIN 0.6 mg/dL (0.2-1.0); TOTAL PROTEIN 7.4 g/dL (6.4-8.2)
[2019-10-04] MEDS: IV NORMAL SALINE 1000ML BAG 1,000 ML IV SCH (05:51)
[2019-10-04] MEDS: oxyCODONE/APAP 5/325 1 TAB TABLET PO PRN ×2 (05:51→17:57)
[2019-10-04 07:00] VITALS: BP 116/77
[2019-10-04] MEDS: ASPIRIN ENTERIC COATED 81 MG TABLET.DR. PO SCH (08:30)
[2019-10-04] MEDS: FUROSEMIDE 40 MG TABLET. PO SCH (08:31)
[2019-10-04] MEDS: METOPROLOL TART IMMED RELEASE 25 MG TABLET. PO SCH ×2 (08:31→21:14)
[2019-10-04] MEDS: PARoxetine 20 MG TABLET PO SCH (08:31)
[2019-10-04] MEDS: POTASSIUM CHLORIDE 20 MEQ TABLET.ER. PO SCH (08:32)
[2019-10-04] MEDS: DOCUSATE SODIUM 100 MG CAPSULE. PO SCH ×2 (08:32→21:13)
[2019-10-04] MEDS: LIDOCAINE (700MG/PATCH) PATCH. TD SCH ×2 (08:33→08:34)
--- NOTE | 2019-10-04 08:39 | PDOC ---
PROGRESS NOTES Date of Service: DATE: 10/04/19 TIME: 08:38 Chief Complaint Chief Complaint VTE Prophylaxis Ordered VTE Prophylaxis Devices: No VTE Pharmacological Prophylaxi: Yes Assessment/Plan Assessment/Plan acute CHF exacerbation, systolic failure critcal hypokalemia severe malnutrition hypotension, volume depleted shortness of breath chest pain, for over a week, from prior cough, pain, and weakness HIV asthma, nebs, hx alcohol abuse remote cocaine abuse admit, CV consult, some pain control iv fluid support lidoderm patch 37 min pt exam, chart review, > 50% of time spent with exam, chart review, pt care coordination Justicifation of Admission Dx: Justicifation of Admission Dx: Justifications for Admission: Justification of Admission Dx: Yes CHF: Sev. Electrolyte Abnormal History of Present Illness History of Present Illness History of Present Illness History of Present Illness Mr Perera is a 38 yo male w/ PMHx CAD s/p PCI with stenting, sCHF EF 20%, HTN, IA, Hyperlipidemia, Valve insufficiency MR moderate to severe, Asthma, Anxiety, HIV on HAART who came to ED for complains of SOB and worsening orthopnea, unable to lay down. Reports that he has been having episodes of chest pain 4/10 as well. he complains of chest pain with trouble breathing that been going on for 2 weeks. Patient said the pain is worse with cough or deep breathing or movement of his chest. He did have some right chest pain after coughing but otherwise denies. No palpitations, frequent dizziness or leg swelling. I reviewed some prior similar admits in the medical history Past Medical History Cardiovascular: CAD, CHF, HTN, IA, Hyperlipidemia, Valve insufficiency Pulmonary: Asthma Psych: Anxiety Musculoskeletal: Other Rheumatologic: No pertinent hx Infectious disease: No pertinent hx, Other Renal/: No pertinent hx Endocrine: No pertinent hx Past Surgical History Past Surgical History: Other Family History Family History: Coronary Artery Disease Social History Smoke: <1 pack per day ALCOHOL: none Drugs: Other Vitals Vitals Vital Signs Date Time Temp Pulse Resp B/P (MAP) Pulse Ox O2 Delivery O2 Flow Rate FiO2 10/04/19 08:31 86 116/77 10/04/19 07:51 Room Air 10/03/19 23:00 18 10/03/19 19:00 98.8 99 98.8 Physical Exam General: Alert, Oriented X3, Cooperative, No acute distress Heart: Regular rate (SR) Lungs: Crackles Abdomen: Soft Extremities: No cyanosis Skin: No rashes Labs LABS Laboratory Tests Test 10/03/19 15:00 10/04/19 03:30 Urine Opiates Screen Pos (NEG) Urine Methadone Screen Neg (NEG) Urine Barbiturates Neg (NEG) Urine Phencyclidine Screen Neg (NEG) Urine Amphetamine/Methamphetamine Pos (NEG) Urine Benzodiazepines Screen Neg (NEG) Urine Cocaine Screen Neg (NEG) Urine Cannabinoids Screen Neg (NEG) Urine Ethyl Alcohol Neg (NEG) White Blood Count 5.6 x10^3/uL (4.0-11.0) Red Blood Count 4.32 x10^6/uL (4.30-5.70) Hemoglobin 13.2 g/dL (13.0-17.5) Hematocrit 40.2 % (39.0-53.0) Mean Corpuscular Volume 93 fL (79-100) Mean Corpuscular Hemoglobin 31 pg (25-35) Mean Corpuscular Hemoglobin Concent 33 g/dL (31-37) Red Cell Distribution Width 19.5 % (11.5-14.5) Platelet Count 335 x10^3/uL (140-400) Neutrophils (%) (Auto) 54 % (31-73) Lymphocytes (%) (Auto) 35 % (24-48) Monocytes (%) (Auto) 7 % (0-9) Eosinophils (%) (Auto) 3 % (0-3) Basophils (%) (Auto) 1 % (0-3) Neutrophils # (Auto) 3.0 x10^3/uL (1.8-7.7) Lymphocytes # (Auto) 1.9 x10^3/uL (1.0-4.8) Monocytes # (Auto) 0.4 x10^3/uL (0.0-1.1) Eosinophils # (Auto) 0.1 x10^3/uL (0.0-0.7) Basophils # (Auto) 0.1 x10^3/uL (0.0-0.2) Sodium Level 136 mmol/L (136-145) Potassium Level 3.7 mmol/L (3.5-5.1) Chloride Level 101 mmol/L (98-107) Carbon Dioxide Level 22 mmol/L (21-32) Anion Gap 13 (6-14) Blood Urea Nitrogen 40 mg/dL (8-26) Creatinine 2.3 mg/dL (0.7-1.3) Estimated GFR (Cockcroft-Gault) 38.3 BUN/Creatinine Ratio 17 (6-20) Glucose Level 102 mg/dL (70-99) Calcium Level 8.0 mg/dL (8.5-10.1) Total Bilirubin 0.6 mg/dL (0.2-1.0) Aspartate Amino Transf (AST/SGOT) 35 U/L (15-37) Alanine Aminotransferase (ALT/SGPT) 30 U/L (16-63) Alkaline Phosphatase 256 U/L (46-116) Total Protein 7.4 g/dL (6.4-8.2) Albumin 2.3 g/dL (3.4-5.0) Albumin/Globulin Ratio 0.5 (1.0-1.7) Assessment and Plan Assessmemt and Plan Problems Medical Problems: (1) Chest pain Status: Acute (2) Hypokalemia Status: Acute Comment Review of Relevant I have reviewed the following items nicolas (where applicable) has been applied. Labs Laboratory Tests Test 10/02/19 13:48 10/02/19 16:40 10/02/19 20:06 10/03/19 03:40 White Blood Count 5.7 x10^3/uL (4.0-11.0) Red Blood Count 4.38 x10^6/uL (4.30-5.70) Hemoglobin 13.3 g/dL (13.0-17.5) Hematocrit 40.4 % (39.0-53.0) Mean Corpuscular Volume 92 fL (79-100) Mean Corpuscular Hemoglobin 30 pg (25-35) Mean Corpuscular Hemoglobin Concent 33 g/dL (31-37) Red Cell Distribution Width 18.6 % (11.5-14.5) Platelet Count 366 x10^3/uL (140-400) Neutrophils (%) (Auto) 68 % (31-73) Lymphocytes (%) (Auto) 25 % (24-48) Monocytes (%) (Auto) 4 % (0-9) Eosinophils (%) (Auto) 2 % (0-3) Basophils (%) (Auto) 1 % (0-3) Neutrophils # (Auto) 3.9 x10^3/uL (1.8-7.7) Lymphocytes # (Auto) 1.4 x10^3/uL (1.0-4.8) Monocytes # (Auto) 0.2 x10^3/uL (0.0-1.1) Eosinophils # (Auto) 0.1 x10^3/uL (0.0-0.7) Basophils # (Auto) 0.1 x10^3/uL (0.0-0.2) Prothrombin Time 13.5 SEC (11.7-14.0) Prothromb Time International Ratio 1.1 (0.8-1.1) Activated Partial Thromboplast Time 32 SEC (24-38) Sodium Level 138 mmol/L (136-145) 139 mmol/L (136-145) Potassium Level 2.3 mmol/L (3.5-5.1) 2.9 mmol/L (3.5-5.1) Chloride Level 98 mmol/L (98-107) 99 mmol/L (98-107) Carbon Dioxide Level 30 mmol/L (21-32) 29 mmol/L (21-32) Anion Gap 10 (6-14) 11 (6-14) Blood Urea Nitrogen 32 mg/dL (8-26) 31 mg/dL (8-26) Creatinine 1.6 mg/dL (0.7-1.3) 2.0 mg/dL (0.7-1.3) Estimated GFR (Cockcroft-Gault) 58.2 45.0 BUN/Creatinine Ratio 20 (6-20) Glucose Level 105 mg/dL (70-99) 122 mg/dL (70-99) Calcium Level 9.1 mg/dL (8.5-10.1) 9.1 mg/dL (8.5-10.1) Magnesium Level 2.0 mg/dL (1.8-2.4) Total Bilirubin 0.6 mg/dL (0.2-1.0) Aspartate Amino Transf (AST/SGOT) 43 U/L (15-37) Alanine Aminotransferase (ALT/SGPT) 37 U/L (16-63) Alkaline Phosphatase 257 U/L (46-116) Troponin I Quantitative 0.042 ng/mL (0.000-0.055) XA-Sze-A-Type Natriuretic Peptide 3204 pg/mL (0-124) Total Protein 8.0 g/dL (6.4-8.2) Albumin 2.5 g/dL (3.4-5.0) Albumin/Globulin Ratio 0.5 (1.0-1.7) Lipase 198 U/L (73-393) Urine Collection Type Void Urine Color Yellow Urine Clarity Clear Urine pH 7.0 (<5.0-8.0) Urine Specific [place] <=1.005 (1.000-1.030) Urine Protein 30 mg/dL (NEG-TRACE) Urine Glucose (UA) Negative mg/dL (NEG) Urine Ketones (Stick) Negative mg/dL (NEG) Urine Blood Negative (NEG) Urine Nitrite Negative (NEG) Urine Bilirubin Negative (NEG) Urine Urobilinogen Dipstick 0.2 mg/dL (0.2 mg/dL) Urine Leukocyte Esterase Negative (NEG) Urine RBC 0 /HPF (0-2) Urine WBC Rare /HPF (0-4) Urine Squamous Epithelial Cells Occ /LPF Urine Bacteria Few /HPF (0-FEW) Coronavirus (PCR) Not detected (Not Detected) Test 10/03/19 15:00 10/04/19 03:30 Urine Opiates Screen Pos (NEG) Urine Methadone Screen Neg (NEG) Urine Barbiturates Neg (NEG) Urine Phencyclidine Screen Neg (NEG) Urine Amphetamine/Methamphetamine Pos (NEG) Urine Benzodiazepines Screen Neg (NEG) Urine Cocaine Screen Neg (NEG) Urine Cannabinoids Screen Neg (NEG) Urine Ethyl Alcohol Neg (NEG) White Blood Count 5.6 x10^3/uL (4.0-11.0) Red Blood Count 4.32 x10^6/uL (4.30-5.70) Hemoglobin 13.2 g/dL (13.0-17.5) Hematocrit 40.2 % (39.0-53.0) Mean Corpuscular Volume 93 fL (79-100) Mean Corpuscular Hemoglobin 31 pg (25-35) Mean Corpuscular Hemoglobin Concent 33 g/dL (31-37) Red Cell Distribution Width 19.5 % (11.5-14.5) Platelet Count 335 x10^3/uL (140-400) Neutrophils (%) (Auto) 54 % (31-73) Lymphocytes (%) (Auto) 35 % (24-48) Monocytes (%) (Auto) 7 % (0-9) Eosinophils (%) (Auto) 3 % (0-3) Basophils (%) (Auto) 1 % (0-3) Neutrophils # (Auto) 3.0 x10^3/uL (1.8-7.7) Lymphocytes # (Auto) 1.9 x10^3/uL (1.0-4.8) Monocytes # (Auto) 0.4 x10^3/uL (0.0-1.1) Eosinophils # (Auto) 0.1 x10^3/uL (0.0-0.7) Basophils # (Auto) 0.1 x10^3/uL (0.0-0.2) Sodium Level 136 mmol/L (136-145) Potassium Level 3.7 mmol/L (3.5-5.1) Chloride Level 101 mmol/L (98-107) Carbon Dioxide Level 22 mmol/L (21-32) Anion Gap 13 (6-14) Blood Urea Nitrogen 40 mg/dL (8-26) Creatinine 2.3 mg/dL (0.7-1.3) Estimated GFR (Cockcroft-Gault) 38.3 BUN/Creatinine Ratio 17 (6-20) Glucose Level 102 mg/dL (70-99) Calcium Level 8.0 mg/dL (8.5-10.1) Total Bilirubin 0.6 mg/dL (0.2-1.0) Aspartate Amino Transf (AST/SGOT) 35 U/L (15-37) Alanine Aminotransferase (ALT/SGPT) 30 U/L (16-63) Alkaline Phosphatase 256 U/L (46-116) Total Protein 7.4 g/dL (6.4-8.2) Albumin 2.3 g/dL (3.4-5.0) Albumin/Globulin Ratio 0.5 (1.0-1.7) Laboratory Tests Test 10/03/19 15:00 10/04/19 03:30 Urine Opiates Screen Pos (NEG) Urine Methadone Screen Neg (NEG) Urine Barbiturates Neg (NEG) Urine Phencyclidine Screen Neg (NEG) Urine Amphetamine/Methamphetamine Pos (NEG) Urine Benzodiazepines Screen Neg (NEG) Urine Cocaine Screen Neg (NEG) Urine Cannabinoids Screen Neg (NEG) Urine Ethyl Alcohol Neg (NEG) White Blood Count 5.6 x10^3/uL (4.0-11.0) Red Blood Count 4.32 x10^6/uL (4.30-5.70) Hemoglobin 13.2 g/dL (13.0-17.5) Hematocrit 40.2 % (39.0-53.0) Mean Corpuscular Volume 93 fL (79-100) Mean Corpuscular Hemoglobin 31 pg (25-35) Mean Corpuscular Hemoglobin Concent 33 g/dL (31-37) Red Cell Distribution Width 19.5 % (11.5-14.5) Platelet Count 335 x10^3/uL (140-400) Neutrophils (%) (Auto) 54 % (31-73) Lymphocytes (%) (Auto) 35 % (24-48) Monocytes (%) (Auto) 7 % (0-9) Eosinophils (%) (Auto) 3 % (0-3) Basophils (%) (Auto) 1 % (0-3) Neutrophils # (Auto) 3.0 x10^3/uL (1.8-7.7) Lymphocytes # (Auto) 1.9 x10^3/uL (1.0-4.8) Monocytes # (Auto) 0.4 x10^3/uL (0.0-1.1) Eosinophils # (Auto) 0.1 x10^3/uL (0.0-0.7) Basophils # (Auto) 0.1 x10^3/uL (0.0-0.2) Sodium Level 136 mmol/L (136-145) Potassium Level 3.7 mmol/L (3.5-5.1) Chloride Level 101 mmol/L (98-107) Carbon Dioxide Level 22 mmol/L (21-32) Anion Gap 13 (6-14) Blood Urea Nitrogen 40 mg/dL (8-26) Creatinine 2.3 mg/dL (0.7-1.3) Estimated GFR (Cockcroft-Gault) 38.3 BUN/Creatinine Ratio 17 (6-20) Glucose Level 102 mg/dL (70-99) Calcium Level 8.0 mg/dL (8.5-10.1) Total Bilirubin 0.6 mg/dL (0.2-1.0) Aspartate Amino Transf (AST/SGOT) 35 U/L (15-37) Alanine Aminotransferase (ALT/SGPT) 30 U/L (16-63) Alkaline Phosphatase 256 U/L (46-116) Total Protein 7.4 g/dL (6.4-8.2) Albumin 2.3 g/dL (3.4-5.0) Albumin/Globulin Ratio 0.5 (1.0-1.7) Medications Current Medications Potassium Chloride (Klor-Con) 80 meq 1X ONCE PO Last administered on 10/02/19at 15:41; Start 10/02/19 at 16:00; Stop 10/02/19 at 16:01; Status DC Morphine Sulfate (Morphine Sulfate) 4 mg 1X ONCE IV Last administered on 10/02/19at 15:41; Start 10/02/19 at 15:30; Stop 10/02/19 at 15:35; Status DC Ondansetron HCl (Zofran) 4 mg PRN Q8HRS PRN IV NAUSEA/VOMITING; Start 10/02/19 at 18:30; Stop 10/03/19 at 18:29; Status DC Morphine Sulfate (Morphine Sulfate) 2 mg PRN Q2HR PRN IV PAIN Last administered on 10/02/19at 23:35; Start 10/02/19 at 18:30; Stop 10/03/19 at 18:29; Status DC Acetaminophen (Tylenol) 650 mg PRN Q6HRS PRN PO mild pain/temp; Start 10/02/19 at 19:30 Albuterol Sulfate (Ventolin Neb Soln) 2.5 mg PRN Q4HRS PRN NEB SHORTNESS OF BREATH; Start 10/02/19 at 19:30 Aspirin (Ecotrin) 81 mg DAILY PO Last administered on 10/04/19at 08:30; Start 10/03/19 at 09:00 Atorvastatin Calcium (Lipitor) 20 mg QHS PO Last administered on 10/03/19at 20:11; Start 10/02/19 at 21:00 Bumetanide (Bumex) 1 mg BID94 PO ; Start 10/03/19 at 09:00; Stop 10/02/19 at 20:17; Status DC Docusate Sodium (Colace) 100 mg BID PO Last administered on 10/04/19at 08:32; Start 8/11/20 at 21:00 Furosemide (Lasix) 40 mg DAILY PO Last administered on 10/04/19 08:31; Start 10/03/19 at 09:00 Hydralazine HCl (Apresoline) 10 mg TID PO Last administered on 10/02/19at 22:34; Start 10/02/19 at 21:00; Stop 10/03/19 at 15:29; Status DC Isosorbide Mononitrate (Imdur) 30 mg DAILY PO ; Start 10/03/19 at 09:00 Metolazone (Zaroxolyn) 2.5 mg DAILY PO ; Start 10/03/19 at 09:00; Stop 10/03/19 at 15:29; Status DC Metoprolol Tartrate (Lopressor) 25 mg BID PO Last administered on 10/04/19at 08:31; Start 10/02/19 at 21:00 Polyethylene Glycol (miraLAX PACKET) 17 gm PRN DAILY PRN PO CONSTIPATION 1ST CHOICE Last administered on 10/03/19at 08:55; Start 10/02/19 at 19:30 Potassium Chloride (Klor-Con) 20 meq DAILYWBKFT PO Last administered on 10/04/19at 08:32; Start 10/03/19 at 08:00 Sacubitril/ Valsartan (Entresto 24 Mg-26 Mg) 1 tab BID PO Last administered on 10/02/19at 22:33; Start 10/02/19 at 21:00; Stop 10/03/19 at 15:29; Status DC Tramadol HCl (Ultram) 50 mg PRN Q6HRS PRN PO PAIN Last administered on 10/03/19at 20:12; Start 10/02/19 at 19:30 Non-Formulary Medication (Efavirenz/ Emtricitab/ Tenofovir (Atripla Tablet)) 1 tab DAILY PO ; Start 10/03/19 at 09:00; Stop 10/04/19 at 07:30; Status DC Paroxetine HCl (Paxil) 40 mg DAILY PO Last administered on 10/04/19at 08:31; Start 10/03/19 at 09:00 Potassium Chloride (Klor-Con) 40 meq 1X ONCE PO Last administered on 10/02/19at 22:33; Start 10/02/19 at 22:00; Stop 10/02/19 at 22:01; Status DC Info (Non-Icu Electrolyte Protocol) 1 ea CONT PRN PRN MC PER PROTOCOL; Start 10/02/19 at 19:30 Lidocaine (Lidoderm) 1 patch DAILY TD Last administered on 10/04/19at 08:33; Start 10/03/19 at 09:00 Oxycodone/ Acetaminophen (Percocet 5/325) 1 tab PRN Q4HRS PRN PO MODERATE - SEVERE PAIN Last administered on 10/04/19at 05:51; Start 10/02/19 at 20:00 Enoxaparin Sodium (Lovenox Per Pharmacy Prophylaxis Dosing) 1 each PRN DAILY PRN MC SEE COMMENTS; Start 10/02/19 at 20:00 Enoxaparin Sodium (Lovenox 40mg Syringe) 40 mg Q24H SQ Last administered on 10/03/19at 20:11; Start 10/02/19 at 21:00 Miscellaneous (Lidoderm Patch Removal) 1 ea QHS MC Last administered on 02/09at 20:13; Start 10/03/19 at 21:00 Potassium Chloride (Klor-Con) 40 meq 1X ONCE PO Last administered on 10/03/19at 09:00; Start 10/03/19 at 08:00; Stop 10/03/19 at 08:01; Status DC Potassium Chloride (Klor-Con) 40 meq 1X ONCE PO Last administered on 10/03/19at 13:16; Start 10/03/19 at 12:00; Stop 10/03/19 at 12:01; Status DC Lidocaine (Lidoderm) 1 patch DAILY TD Last administered on 10/04/19at 08:34; Start 10/03/19 at 10:00 Miscellaneous (Lidoderm Patch Removal) 1 ea QHS MC Last administered on 09/21 20:13; Start 10/03/19 at 21:00 Sodium Chloride 1,000 ml @ 60 mls/hr [id number] IV Last administered on 10/04/19 05:51; Start 10/03/19 at 11:15 Sodium Chloride 1,000 ml @ 1,000 mls/hr 1X ONCE IV Last administered on 10/03/19at 15:15; Start 10/03/19 at 14:15; Stop 10/03/19 at 15:14; Status DC Potassium Chloride (Klor-Con) 40 meq 1X ONCE PO Last administered on 10/03/19at 15:56; Start 10/03/19 at 16:30; Stop 10/03/19 at 16:31; Status DC Ondansetron HCl (Zofran) 4 mg PRN Q8HRS PRN IVP NAUSEA/VOMITING 1ST CHOICE Last administered on 10/04/19at 00:33; Start 10/04/19 at 00:30 Active Scripts Active Lasix (Furosemide) 40 Mg Tablet 1 Tab PO DAILY 30 Days Tramadol Hcl 50 Mg Tablet 50 Mg PO PRN Q6HRS PRN 6 Days Atorvastatin Calcium 20 Mg Tablet 1 Tab PO DAILY 90 Days Paroxetine Hcl 40 Mg Tablet 1 Tab PO DAILY07 90 Days Polyethylene Glycol 3350 17 Gm Powd.pack 17 Gm PO PRN DAILY PRN 30 Days Dok (Docusate Sodium) 100 Mg Capsule 100 Mg PO BID 30 Days Metolazone 2.5 Mg Tablet 2.5 Mg PO DAILY 30 Days Bumetanide 1 Mg Tablet 1 Mg PO BID94 30 Days Metoprolol Tartrate 25 Mg Tablet 25 Mg PO BID 30 Days Atripla Tablet (Efavirenz/Emtricitab/Tenofovir) 1 Each Tablet 1 Tab PO DAILY 90 Days Tylenol (Acetaminophen) 325 Mg Tablet 650 Mg PO PRN Q6HRS PRN 30 Days Isosorbide Mononitrate Er (Isosorbide Mononitrate) 30 Mg Tab.er.24h 30 Mg PO DAILY 30 Days Hydralazine Hcl 10 Mg Tablet 10 Mg PO TID 30 Days Proair Hfa (Albuterol Sulfate) 8.5 Gm Hfa.aer.ad 2.5 Mg NEB PRN Q4HRS PRN 30 Days Klor-Con M20 (Potassium Chloride) 20 Meq Tab.er.prt 20 Meq PO DAILYWBKFT 10 Days Aspir 81 (Aspirin) 81 Mg Tablet. 1 Tab PO DAILY Reported Entresto 24 mg-26 mg Tablet (Sacubitril/Valsartan) 1 Each Tablet 1 Each PO BID Vitals/I & O Vital Sign - Last 24 Hours 10/03/19 10/03/19 10/03/19 10/03/19 09:00 09:00 09:00 09:00 Pulse 78 78 78 78 B/P (MAP) 94/68 94/68 94/68 94/68 8/12/20 8/12/20 8/12/20 8/12/20 09:01 11:00 11:30 11:32 Temp 98.0 98.0 Pulse 69 72 Resp 18 B/P (MAP) 75/64 (68) 79/62 (68) Pulse Ox 95 95 99 O2 Delivery Room Air Room Air Room Air 10/03/19 10/03/19 10/03/19 10/03/19 13:00 13:15 13:16 14:30 Pulse 72 B/P (MAP) 85/47 (60) 85/47 Pulse Ox 99 99 O2 Delivery Room Air Room Air 10/03/19 10/03/19 10/03/19 10/03/19 15:00 18:31 19:00 20:05 Temp 98.1 98.8 98.1 98.8 Pulse 91 89 Resp 20 19 B/P (MAP) 96/78 (84) 95/74 (81) Pulse Ox 97 97 99 O2 Delivery Room Air Room Air Room Air Room Air 10/03/19 10/03/19 10/04/19 10/04/19 20:25 23:00 03:00 07:51 Pulse 92 87 86 Resp 18 B/P (MAP) 95/74 128/85 (99) O2 Delivery Room Air Room Air 10/04/19 08:31 Pulse 86 B/P (MAP) 116/77 Intake and Output 10/03/19 10/03/19 10/04/19 15:00 23:00 07:00 Intake Total 100 ml 200 ml Output Total 450 ml 300 ml Balance -350 ml -100 ml Justicifation of Admission Dx: Justifications for Admission: Justification of Admission Dx: Yes CHF: Sev. Electrolyte Abnormal ROB MCLAIN MD Oct 04, 2019 08:39
[2019-10-04] MEDS: ISOSORBIDE MONONITRATE ER 30 MG TAB.ER.24H PO SCH (08:44)
[2019-10-04 11:00] VITALS: BP 102/77
--- NOTE | 2019-10-04 11:26 | NUR ---
SW following. Reviewed chart and discussed with RN. Pt from home. Pt remains on room air. Pt COVID negative. SW attempted to call into pt's room but pt stated he was to dizzy to talk to SW. Pt has a hx of substance abuse and was at [facility] in July of this year and refused resources for out-patient substance abuse treatment per chart review. Nephrology consulted- creatinine 2.3. SW to follow.
--- NOTE | 2019-10-04 11:48 | PDOC2 ---
CONSULT Date of Consult Date of Consult DATE: 10/04/19 TIME: 11:42 Reason for Consult Reason for Consult: GARRET Referring Physician Referring Physician: MSEHA Identification/Chief Complaint Chief Complaint CHEST PAIN Source Source: Chart review History of Present Illness Reason for Visit: THIS IS A 39 YR OLD WHO IS CONFUSED. LETHARGIC APPEARING. ADMITTED WITH CHEST PAIN AND SOME SOB. CARDIOLOGY EVALUATION ONGOING. HAS HX OF TOBACCO, METH AND MARIJUANA USE. EF OF 20%. LABS INDICATE CKD STAGE 3 WITH CR OF ABOUT 1.5-2.0. CR TODAY OF 2.3. WAS HYPOKALEMIC ON ADMIT WITH K OF 2.3 NOW UP TO 3.7. NON COMPLIANT PT WHO HAS LETHARGY DUE TO DRUG USE. HAS BEEN HYPOTENSIVE WELL. Past Medical History Cardiovascular: CAD, CHF, HTN, LA, Hyperlipidemia, Valve insufficiency Pulmonary: Asthma Psych: Anxiety Musculoskeletal: Other Rheumatologic: No pertinent hx Infectious disease: No pertinent hx, Other Renal/: Chronic renal insuff Endocrine: No pertinent hx Past Surgical History Past Surgical History: Other Family History Family History: Coronary Artery Disease (mother) Social History <1 pack per day ALCOHOL: none Drugs: Marijuana, Crystal meth, Other Lives: with Family Current Problem List Problem List Problems Medical Problems: (1) Chest pain Status: Acute (2) Hypokalemia Status: Acute Current Medications Current Medications Current Medications Potassium Chloride (Klor-Con) 80 meq 1X ONCE PO Last administered on 10/02/19at 15:41; Start 10/02/19 at 16:00; Stop 10/02/19 at 16:01; Status DC Morphine Sulfate (Morphine Sulfate) 4 mg 1X ONCE IV Last administered on 10/02/19at 15:41; Start 10/02/19 at 15:30; Stop 10/02/19 at 15:35; Status DC Ondansetron HCl (Zofran) 4 mg PRN Q8HRS PRN IV NAUSEA/VOMITING; Start 10/02/19 at 18:30; Stop 10/03/19 at 18:29; Status DC Morphine Sulfate (Morphine Sulfate) 2 mg PRN Q2HR PRN IV PAIN Last administered on 10/02/19at 23:35; Start 10/02/19 at 18:30; Stop 10/03/19 at 18:29; Status DC Acetaminophen (Tylenol) 650 mg PRN Q6HRS PRN PO MILD PAIN / TEMP > 100.3'F; Start 10/02/19 at 19:30 Albuterol Sulfate (Ventolin Neb Soln) 2.5 mg PRN Q4HRS PRN NEB SHORTNESS OF BREATH; Start 10/02/19 at 19:30 Aspirin (Ecotrin) 81 mg DAILY PO Last administered on 10/04/19at 08:30; Start 10/03/19 at 09:00 Atorvastatin Calcium (Lipitor) 20 mg QHS PO Last administered on 10/03/19at 20:11; Start 10/02/19 at 21:00 Bumetanide (Bumex) 1 mg BID94 PO ; Start 10/03/19 at 09:00; Stop 10/02/19 at 20:17; Status DC Docusate Sodium (Colace) 100 mg BID PO Last administered on 10/04/19at 08:32; Start 10/02/19 at 21:00 Furosemide (Lasix) 40 mg DAILY PO Last administered on 10/04/19at 08:31; Start 10/03/19 at 09:00 Hydralazine HCl (Apresoline) 10 mg TID PO Last administered on 10/02/19at 22:34; Start 10/02/19 at 21:00; Stop 10/03/19 at 15:29; Status DC Isosorbide Mononitrate (Imdur) 30 mg DAILY PO ; Start 10/03/19 at 09:00 Metolazone (Zaroxolyn) 2.5 mg DAILY PO ; Start 10/03/19 at 09:00; Stop 10/03/19 at 15:29; Status DC Metoprolol Tartrate (Lopressor) 25 mg BID PO Last administered on 10/04/19at 08:31; Start 10/02/19 at 21:00 Polyethylene Glycol (miraLAX PACKET) 17 gm PRN DAILY PRN PO CONSTIPATION 1ST CHOICE Last administered on 10/03/19at 08:55; Start 10/02/19 at 19:30 Potassium Chloride (Klor-Con) 20 meq DAILYWBKFT PO Last administered on 10/04/19at 08:32; Start 10/03/19 at 08:00 Sacubitril/ Valsartan (Entresto 24 Mg-26 Mg) 1 tab BID PO Last administered on 10/02/19at 22:33; Start 10/02/19 at 21:00; Stop 10/03/19 at 15:29; Status DC Tramadol HCl (Ultram) 50 mg PRN Q6HRS PRN PO PAIN Last administered on 10/03/19at 20:12; Start 10/02/19 at 19:30 Non-Formulary Medication (Efavirenz/ Emtricitab/ Tenofovir (Atripla Tablet)) 1 tab DAILY PO ; Start 10/03/19 at 09:00; Stop 10/04/19 at 07:30; Status DC Paroxetine HCl (Paxil) 40 mg DAILY PO Last administered on 10/04/19at 08:31; Start 10/03/19 at 09:00 Potassium Chloride (Klor-Con) 40 meq 1X ONCE PO Last administered on 10/02/19at 22:33; Start 10/02/19 at 22:00; Stop 10/02/19 at 22:01; Status DC Info (Non-Icu Electrolyte Protocol) 1 ea CONT PRN PRN MC PER PROTOCOL; Start 10/02/19 at 19:30 Lidocaine (Lidoderm) 1 patch DAILY TD Last administered on 10/04/19at 08:33; Start 10/03/19 at 09:00 Oxycodone/ Acetaminophen (Percocet 5/325) 1 tab PRN Q4HRS PRN PO MODERATE - SEVERE PAIN Last administered on 10/04/19at 05:51; Start 10/02/19 at 20:00 Enoxaparin Sodium (Lovenox Per Pharmacy Prophylaxis Dosing) 1 each PRN DAILY PRN MC SEE COMMENTS; Start 10/02/19 at 20:00 Enoxaparin Sodium (Lovenox 40mg Syringe) 40 mg Q24H SQ Last administered on 10/03/19at 20:11; Start 10/02/19 at 21:00 Miscellaneous (Lidoderm Patch Removal) 1 ea QHS MC Last administered on 10/03/19at 20:13; Start 10/03/19 at 21:00 Potassium Chloride (Klor-Con) 40 meq 1X ONCE PO Last administered on 10/03/19at 09:00; Start 10/03/19 at 08:00; Stop 10/03/19 at 08:01; Status DC Potassium Chloride (Klor-Con) 40 meq 1X ONCE PO Last administered on 10/03/19at 13:16; Start 10/03/19 at 12:00; Stop 10/03/19 at 12:01; Status DC Lidocaine (Lidoderm) 1 patch DAILY TD Last administered on 10/04/19at 08:34; Start 10/03/19 at 10:00 Miscellaneous (Lidoderm Patch Removal) 1 ea QHS MC Last administered on 10/03/19at 20:13; Start 10/03/19 at 21:00 Sodium Chloride 1,000 ml @ 60 mls/hr [id number] IV Last administered on 10/04/19at 05:51; Start 10/03/19 at 11:15; Stop 10/04/19 at 11:25; Status DC Sodium Chloride 1,000 ml @ 1,000 mls/hr 1X ONCE IV Last administered on 10/03/19at 15:15; Start 10/03/19 at 14:15; Stop 10/03/19 at 15:14; Status DC Potassium Chloride (Klor-Con) 40 meq 1X ONCE PO Last administered on 10/03/19at 15:56; Start 10/03/19 at 16:30; Stop 10/03/19 at 16:31; Status DC Ondansetron HCl (Zofran) 4 mg PRN Q8HRS PRN IVP NAUSEA/VOMITING 1ST CHOICE Last administered on 10/04/19at 00:33; Start 10/04/19 at 00:30; Stop 10/04/19 at 11:11; Status DC Ondansetron HCl (Zofran) 4 mg PRN Q4HRS PRN IVP NAUSEA/VOMITING 1ST CHOICE Last administered on 10/04/19at 11:39; Start 10/04/19 at 11:15 Active Scripts Active Lasix (Furosemide) 40 Mg Tablet 1 Tab PO DAILY 30 Days Tramadol Hcl 50 Mg Tablet 50 Mg PO PRN Q6HRS PRN 6 Days Atorvastatin Calcium 20 Mg Tablet 1 Tab PO DAILY 90 Days Paroxetine Hcl 40 Mg Tablet 1 Tab PO DAILY07 90 Days Polyethylene Glycol 3350 17 Gm Powd.pack 17 Gm PO PRN DAILY PRN 30 Days Dok (Docusate Sodium) 100 Mg Capsule 100 Mg PO BID 30 Days Metolazone 2.5 Mg Tablet 2.5 Mg PO DAILY 30 Days Bumetanide 1 Mg Tablet 1 Mg PO BID94 30 Days Metoprolol Tartrate 25 Mg Tablet 25 Mg PO BID 30 Days Atripla Tablet (Efavirenz/Emtricitab/Tenofovir) 1 Each Tablet 1 Tab PO DAILY 90 Days Tylenol (Acetaminophen) 325 Mg Tablet 650 Mg PO PRN Q6HRS PRN 30 Days Isosorbide Mononitrate Er (Isosorbide Mononitrate) 30 Mg Tab.er.24h 30 Mg PO DAILY 30 Days Hydralazine Hcl 10 Mg Tablet 10 Mg PO TID 30 Days Proair Hfa (Albuterol Sulfate) 8.5 Gm Hfa.aer.ad 2.5 Mg NEB PRN Q4HRS PRN 30 Days Klor-Con M20 (Potassium Chloride) 20 Meq Tab.er.prt 20 Meq PO DAILYWBKFT 10 Days Aspir 81 (Aspirin) 81 Mg Tablet. 1 Tab PO DAILY Reported Entresto 24 mg-26 mg Tablet (Sacubitril/Valsartan) 1 Each Tablet 1 Each PO BID Allergies Allergies: Coded Allergies: No Known Drug Allergies (Unverified , 08/01/16) ROS Review of System CONFUSED Physical Exam General: Alert, Cooperative, No acute distress HEENT: Atraumatic, PERRLA Lungs: Other (DECREASED AT BASES) Heart: Regular rate Abdomen: Normal bowel sounds Extremities: No clubbing Skin: No rashes, No breakdown Neuro: Other (CONFUSED) Psych/Mental Status: Other (FLAT) MUSCULOSKELETAL: No joint tenderness, No deformity, No swelling Vitals VITALS Vital Signs Date Time Temp Pulse Resp B/P (MAP) Pulse Ox O2 Delivery O2 Flow Rate FiO2 10/04/19 08:44 86 116/77 10/04/19 08:00 Room Air 10/04/19 07:00 96.5 16 98 96.5 Labs Labs Laboratory Tests Test 10/02/19 13:48 10/02/19 16:40 10/02/19 20:06 10/03/19 03:40 White Blood Count 5.7 x10^3/uL (4.0-11.0) Red Blood Count 4.38 x10^6/uL (4.30-5.70) Hemoglobin 13.3 g/dL (13.0-17.5) Hematocrit 40.4 % (39.0-53.0) Mean Corpuscular Volume 92 fL (79-100) Mean Corpuscular Hemoglobin 30 pg (25-35) Mean Corpuscular Hemoglobin Concent 33 g/dL (31-37) Red Cell Distribution Width 18.6 % (11.5-14.5) Platelet Count 366 x10^3/uL (140-400) Neutrophils (%) (Auto) 68 % (31-73) Lymphocytes (%) (Auto) 25 % (24-48) Monocytes (%) (Auto) 4 % (0-9) Eosinophils (%) (Auto) 2 % (0-3) Basophils (%) (Auto) 1 % (0-3) Neutrophils # (Auto) 3.9 x10^3/uL (1.8-7.7) Lymphocytes # (Auto) 1.4 x10^3/uL (1.0-4.8) Monocytes # (Auto) 0.2 x10^3/uL (0.0-1.1) Eosinophils # (Auto) 0.1 x10^3/uL (0.0-0.7) Basophils # (Auto) 0.1 x10^3/uL (0.0-0.2) Prothrombin Time 13.5 SEC (11.7-14.0) Prothromb Time International Ratio 1.1 (0.8-1.1) Activated Partial Thromboplast Time 32 SEC (24-38) Sodium Level 138 mmol/L (136-145) 139 mmol/L (136-145) Potassium Level 2.3 mmol/L (3.5-5.1) 2.9 mmol/L (3.5-5.1) Chloride Level 98 mmol/L (98-107) 99 mmol/L (98-107) Carbon Dioxide Level 30 mmol/L (21-32) 29 mmol/L (21-32) Anion Gap 10 (6-14) 11 (6-14) Blood Urea Nitrogen 32 mg/dL (8-26) 31 mg/dL (8-26) Creatinine 1.6 mg/dL (0.7-1.3) 2.0 mg/dL (0.7-1.3) Estimated GFR (Cockcroft-Gault) 58.2 45.0 BUN/Creatinine Ratio 20 (6-20) Glucose Level 105 mg/dL (70-99) 122 mg/dL (70-99) Calcium Level 9.1 mg/dL (8.5-10.1) 9.1 mg/dL (8.5-10.1) Magnesium Level 2.0 mg/dL (1.8-2.4) Total Bilirubin 0.6 mg/dL (0.2-1.0) Aspartate Amino Transf (AST/SGOT) 43 U/L (15-37) Alanine Aminotransferase (ALT/SGPT) 37 U/L (16-63) Alkaline Phosphatase 257 U/L (46-116) Troponin I Quantitative 0.042 ng/mL (0.000-0.055) IA-Vup-K-Type Natriuretic Peptide 9295 pg/mL (0-124) Total Protein 8.0 g/dL (6.4-8.2) Albumin 2.5 g/dL (3.4-5.0) Albumin/Globulin Ratio 0.5 (1.0-1.7) Lipase 198 U/L (73-393) Urine Collection Type Void Urine Color Yellow Urine Clarity Clear Urine pH 7.0 (<5.0-8.0) Urine Specific [place] <=1.005 (1.000-1.030) Urine Protein 30 mg/dL (NEG-TRACE) Urine Glucose (UA) Negative mg/dL (NEG) Urine Ketones (Stick) Negative mg/dL (NEG) Urine Blood Negative (NEG) Urine Nitrite Negative (NEG) Urine Bilirubin Negative (NEG) Urine Urobilinogen Dipstick 0.2 mg/dL (0.2 mg/dL) Urine Leukocyte Esterase Negative (NEG) Urine RBC 0 /HPF (0-2) Urine WBC Rare /HPF (0-4) Urine Squamous Epithelial Cells Occ /LPF Urine Bacteria Few /HPF (0-FEW) Coronavirus (PCR) Not detected (Not Detected) Test 10/03/19 15:00 10/04/19 03:30 Urine Opiates Screen Pos (NEG) Urine Methadone Screen Neg (NEG) Urine Barbiturates Neg (NEG) Urine Phencyclidine Screen Neg (NEG) Urine Amphetamine/Methamphetamine Pos (NEG) Urine Benzodiazepines Screen Neg (NEG) Urine Cocaine Screen Neg (NEG) Urine Cannabinoids Screen Neg (NEG) Urine Ethyl Alcohol Neg (NEG) White Blood Count 5.6 x10^3/uL (4.0-11.0) Red Blood Count 4.32 x10^6/uL (4.30-5.70) Hemoglobin 13.2 g/dL (13.0-17.5) Hematocrit 40.2 % (39.0-53.0) Mean Corpuscular Volume 93 fL (79-100) Mean Corpuscular Hemoglobin 31 pg (25-35) Mean Corpuscular Hemoglobin Concent 33 g/dL (31-37) Red Cell Distribution Width 19.5 % (11.5-14.5) Platelet Count 335 x10^3/uL (140-400) Neutrophils (%) (Auto) 54 % (31-73) Lymphocytes (%) (Auto) 35 % (24-48) Monocytes (%) (Auto) 7 % (0-9) Eosinophils (%) (Auto) 3 % (0-3) Basophils (%) (Auto) 1 % (0-3) Neutrophils # (Auto) 3.0 x10^3/uL (1.8-7.7) Lymphocytes # (Auto) 1.9 x10^3/uL (1.0-4.8) Monocytes # (Auto) 0.4 x10^3/uL (0.0-1.1) Eosinophils # (Auto) 0.1 x10^3/uL (0.0-0.7) Basophils # (Auto) 0.1 x10^3/uL (0.0-0.2) Sodium Level 136 mmol/L (136-145) Potassium Level 3.7 mmol/L (3.5-5.1) Chloride Level 101 mmol/L (98-107) Carbon Dioxide Level 22 mmol/L (21-32) Anion Gap 13 (6-14) Blood Urea Nitrogen 40 mg/dL (8-26) Creatinine 2.3 mg/dL (0.7-1.3) Estimated GFR (Cockcroft-Gault) 38.3 BUN/Creatinine Ratio 17 (6-20) Glucose Level 102 mg/dL (70-99) Calcium Level 8.0 mg/dL (8.5-10.1) Total Bilirubin 0.6 mg/dL (0.2-1.0) Aspartate Amino Transf (AST/SGOT) 35 U/L (15-37) Alanine Aminotransferase (ALT/SGPT) 30 U/L (16-63) Alkaline Phosphatase 256 U/L (46-116) Total Protein 7.4 g/dL (6.4-8.2) Albumin 2.3 g/dL (3.4-5.0) Albumin/Globulin Ratio 0.5 (1.0-1.7) Laboratory Tests Test 10/03/19 15:00 10/04/19 03:30 Urine Opiates Screen Pos (NEG) Urine Methadone Screen Neg (NEG) Urine Barbiturates Neg (NEG) Urine Phencyclidine Screen Neg (NEG) Urine Amphetamine/Methamphetamine Pos (NEG) Urine Benzodiazepines Screen Neg (NEG) Urine Cocaine Screen Neg (NEG) Urine Cannabinoids Screen Neg (NEG) Urine Ethyl Alcohol Neg (NEG) White Blood Count 5.6 x10^3/uL (4.0-11.0) Red Blood Count 4.32 x10^6/uL (4.30-5.70) Hemoglobin 13.2 g/dL (13.0-17.5) Hematocrit 40.2 % (39.0-53.0) Mean Corpuscular Volume 93 fL (79-100) Mean Corpuscular Hemoglobin 31 pg (25-35) Mean Corpuscular Hemoglobin Concent 33 g/dL (31-37) Red Cell Distribution Width 19.5 % (11.5-14.5) Platelet Count 335 x10^3/uL (140-400) Neutrophils (%) (Auto) 54 % (31-73) Lymphocytes (%) (Auto) 35 % (24-48) Monocytes (%) (Auto) 7 % (0-9) Eosinophils (%) (Auto) 3 % (0-3) Basophils (%) (Auto) 1 % (0-3) Neutrophils # (Auto) 3.0 x10^3/uL (1.8-7.7) Lymphocytes # (Auto) 1.9 x10^3/uL (1.0-4.8) Monocytes # (Auto) 0.4 x10^3/uL (0.0-1.1) Eosinophils # (Auto) 0.1 x10^3/uL (0.0-0.7) Basophils # (Auto) 0.1 x10^3/uL (0.0-0.2) Sodium Level 136 mmol/L (136-145) Potassium Level 3.7 mmol/L (3.5-5.1) Chloride Level 101 mmol/L (98-107) Carbon Dioxide Level 22 mmol/L (21-32) Anion Gap 13 (6-14) Blood Urea Nitrogen 40 mg/dL (8-26) Creatinine 2.3 mg/dL (0.7-1.3) Estimated GFR (Cockcroft-Gault) 38.3 BUN/Creatinine Ratio 17 (6-20) Glucose Level 102 mg/dL (70-99) Calcium Level 8.0 mg/dL (8.5-10.1) Total Bilirubin 0.6 mg/dL (0.2-1.0) Aspartate Amino Transf (AST/SGOT) 35 U/L (15-37) Alanine Aminotransferase (ALT/SGPT) 30 U/L (16-63) Alkaline Phosphatase 256 U/L (46-116) Total Protein 7.4 g/dL (6.4-8.2) Albumin 2.3 g/dL (3.4-5.0) Albumin/Globulin Ratio 0.5 (1.0-1.7) Assessment/Plan Assessment/Plan IMP GARRET WITH CR OF 2.3 CKD STAGE 3 WITH CR 1.5-2.0 CM WITH EF OF 20% ACUTE ON CHRONIC SYSTOLIC CHF HIV ON HAART HYPOTENSION PLAN REPLACE K CONT WITH LASIX STOP HIS IVF'S RESTRICT FLUIDS ALLOW HIGHER PERFUSION PRESSURES AGREE WITH STOPPING HYDRALAZINE AFTER LOAD REDUCTION POSSIBLE CARDIOLOGY EVAL AND TX WILL FOLLOW CHILO WHITE MD Oct 04, 2019 11:48
--- NOTE | 2019-10-04 11:55 | EKG ---
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
[2019-10-04 15:00] VITALS: BP 97/70
--- NOTE | 2019-10-04 16:44 | PDOC ---
PROGRESS NOTES Date of Service: DATE: 10/04/19 TIME: 16:44 Subjective Subjective c/o chest pain Objective Objective Vital Signs Date Time Temp Pulse Resp B/P (MAP) Pulse Ox O2 Delivery O2 Flow Rate FiO2 10/04/19 15:00 98.6 71 16 97/70 (79) 95 Room Air 98.6 Intake and Output 10/04/19 07:00 Intake Total 300 ml Output Total 750 ml Balance -450 ml Intake Oral 300 ml Output Urine Total 750 ml # Voids 2 # Bowel Movements 1 Physical Exam Abdomen: Normal bowel sounds Heart: Regular rate Extremities: No clubbing General: Alert, Cooperative, No acute distress HEENT: Atraumatic, PERRLA Lungs: Other (DECREASED AT BASES) MUSCULOSKELETAL: No joint tenderness, No deformity, No swelling Neuro: Other (CONFUSED) Psych/Mental Status: Other (FLAT) Skin: No rashes, No breakdown Assessment Assessment 1. Acute on chronic diastolic/systolic CHF:due to overhydration and noncompliance. Better compensated. 2. NICM/ICM: NYHA 2. Recent EF at 20% compensated. Lifevest is an option and AICD candidate but deferred due to failed optimization/noncompliance and substance abuse. Further HF advanced therapies would be considered pending his outpt compliance. Again encouraged to follow up 3. Atypical CP: non cardiac and prob pleuritic 4. Tobaccoism 5. Continued substance abuse: smoked meth 2 days ago, whiskey 1 pint last night, uses marijuana 6. CAD: past stent to LAD, clinically stable 7. HTN: BP low and metoprolol held. We will reinitiate as outpatient if BP improves 8. HIV: HAART per PCP 9. HLP 10. Valvular insufficiency: mod TR/MR 11. GARRET on CKD3: baseline Cr 1.6 to 1.8 12. Hypokalemia 13. Opioid seeking behavior with noncompliance. PUI. 14. Acute bronchitis: per PCP Plan Plan of Care Problems Medical Problems: (1) Chest pain Status: Acute (2) Hypokalemia Status: Acute Comment Review of Relevant I have reviewed the following items nicolas (where applicable) has been applied. Labs Laboratory Tests Test 10/04/19 03:30 White Blood Count 5.6 x10^3/uL (4.0-11.0) Red Blood Count 4.32 x10^6/uL (4.30-5.70) Hemoglobin 13.2 g/dL (13.0-17.5) Hematocrit 40.2 % (39.0-53.0) Mean Corpuscular Volume 93 fL (79-100) Mean Corpuscular Hemoglobin 31 pg (25-35) Mean Corpuscular Hemoglobin Concent 33 g/dL (31-37) Red Cell Distribution Width 19.5 % (11.5-14.5) Platelet Count 335 x10^3/uL (140-400) Neutrophils (%) (Auto) 54 % (31-73) Lymphocytes (%) (Auto) 35 % (24-48) Monocytes (%) (Auto) 7 % (0-9) Eosinophils (%) (Auto) 3 % (0-3) Basophils (%) (Auto) 1 % (0-3) Neutrophils # (Auto) 3.0 x10^3/uL (1.8-7.7) Lymphocytes # (Auto) 1.9 x10^3/uL (1.0-4.8) Monocytes # (Auto) 0.4 x10^3/uL (0.0-1.1) Eosinophils # (Auto) 0.1 x10^3/uL (0.0-0.7) Basophils # (Auto) 0.1 x10^3/uL (0.0-0.2) Sodium Level 136 mmol/L (136-145) Potassium Level 3.7 mmol/L (3.5-5.1) Chloride Level 101 mmol/L (98-107) Carbon Dioxide Level 22 mmol/L (21-32) Anion Gap 13 (6-14) Blood Urea Nitrogen 40 mg/dL (8-26) Creatinine 2.3 mg/dL (0.7-1.3) Estimated GFR (Cockcroft-Gault) 38.3 BUN/Creatinine Ratio 17 (6-20) Glucose Level 102 mg/dL (70-99) Calcium Level 8.0 mg/dL (8.5-10.1) Total Bilirubin 0.6 mg/dL (0.2-1.0) Aspartate Amino Transf (AST/SGOT) 35 U/L (15-37) Alanine Aminotransferase (ALT/SGPT) 30 U/L (16-63) Alkaline Phosphatase 256 U/L (46-116) Total Protein 7.4 g/dL (6.4-8.2) Albumin 2.3 g/dL (3.4-5.0) Albumin/Globulin Ratio 0.5 (1.0-1.7) Medications Current Medications Miscellaneous (Lidoderm Patch Removal) 1 ea QHS MC Last administered on 10/03/19at 20:13; Start 10/03/19 at 21:00 Miscellaneous (Lidoderm Patch Removal) 1 ea QHS MC Last administered on 10/03/19at 20:13; Start 10/03/19 at 21:00 Ondansetron HCl (Zofran) 4 mg PRN Q4HRS PRN IVP NAUSEA/VOMITING 1ST CHOICE Last administered on 10/04/19at 11:39; Start 10/04/19 at 11:15 Ondansetron HCl (Zofran) 4 mg PRN Q8HRS PRN IVP NAUSEA/VOMITING 1ST CHOICE Last administered on 10/04/19at 00:33; Start 10/04/19 at 00:30; Stop 10/04/19 at 11:11; Status DC Vitals/I & O Vital Sign - Last 24 Hours 10/03/19 10/03/19 10/03/19 10/03/19 18:31 19:00 20:05 20:25 Temp 98.8 98.8 Pulse 89 92 Resp 19 B/P (MAP) 95/74 (81) 95/74 Pulse Ox 97 99 O2 Delivery Room Air Room Air Room Air 10/03/19 10/04/19 10/04/19 10/04/19 23:00 03:00 07:00 07:51 Temp 96.5 96.5 Pulse 87 86 83 Resp 18 16 B/P (MAP) 128/85 (99) 116/77 (90) Pulse Ox 98 O2 Delivery Room Air Room Air Room Air 10/04/19 10/04/19 10/04/19 10/04/19 08:00 08:31 08:44 11:00 Temp 97.9 97.9 Pulse 86 86 73 Resp 16 B/P (MAP) 116/77 116/77 102/77 (85) Pulse Ox 99 O2 Delivery Room Air Room Air 10/04/19 15:00 Temp 98.6 98.6 Pulse 71 Resp 16 B/P (MAP) 97/70 (79) Pulse Ox 95 O2 Delivery Room Air Intake and Output 10/03/19 10/03/19 10/04/19 15:00 23:00 07:00 Intake Total 100 ml 200 ml Output Total 450 ml 300 ml Balance -350 ml -100 ml KORY HERNANDEZ MD Oct 04, 2019 16:44
--- NOTE | 2019-10-04 17:23 | NUR ---
Transferred Patient to Room 530 at 1655 hours, found a bag of medications in the patient's room. Patient stated that he did not utilized any medications in the bag. Gave the medications to DAVIAN Marie - the receiving Nurse.
[2019-10-04 19:00] VITALS: BP 97/66
[2019-10-04] MEDS: ENOXAPARIN 40 MG/0.4 ML SYRINGE. SQ SCH (21:00)
[2019-10-04] MEDS: PATCH REMOVAL. MC SCH ×2 (21:00)
[2019-10-04] MEDS: ATORVASTATIN CALCIUM 20 MG TABLET PO SCH (21:13)
[2019-10-04] MEDS: traMADol 50 MG TABLET PO PRN (21:13)
[2019-10-04 23:00] VITALS: BP 103/76
[2019-10-05] MEDS: oxyCODONE/APAP 5/325 1 TAB TABLET PO PRN ×3 (01:17→19:16)
[2019-10-05 03:00] VITALS: BP 85/59
[2019-10-05 04:54] LABS: CALCIUM 8.2 mg/dL (8.5-10.1); GFR 28.2; MAGNESIUM 1.8 mg/dL (1.8-2.4); POTASSIUM 4.5 mmol/L (3.5-5.1)
[2019-10-05 07:00] VITALS: BP 98/53
--- NOTE | 2019-10-05 08:54 | PDOC ---
PROGRESS NOTES Date of Service: DATE: 10/05/19 TIME: 08:54 Chief Complaint Chief Complaint VTE Prophylaxis Ordered VTE Prophylaxis Devices: No VTE Pharmacological Prophylaxi: Yes Assessment/Plan Assessment/Plan acute CHF exacerbation, systolic failure critcal hypokalemia severe malnutrition hypotension, volume depleted shortness of breath chest pain, for over a week, from prior cough, pain, and weakness HIV asthma, nebs, hx alcohol abuse remote cocaine abuse xochilt, worsening admit, CV consult, some pain control iv fluid support lidoderm patch consult nephrology 39 min pt exam, chart review, > 50% of time spent with exam, chart review, pt care coordination Justicifation of Admission Dx: Justicifation of Admission Dx: Justifications for Admission: Justification of Admission Dx: Yes CHF: Sev. Electrolyte Abnormal History of Present Illness History of Present Illness History of Present Illness History of Present Illness Mr Perera is a 38 yo male w/ PMHx CAD s/p PCI with stenting, sCHF EF 20%, HTN, AR, Hyperlipidemia, Valve insufficiency MR moderate to severe, Asthma, Anxiety, HIV on HAART who came to ED for complains of SOB and worsening orthopnea, unable to lay down. Reports that he has been having episodes of chest pain 4/10 as well. he complains of chest pain with trouble breathing that been going on for 2 weeks. Patient said the pain is worse with cough or deep breathing or movement of his chest. He did have some right chest pain after coughing but otherwise denies. No palpitations, frequent dizziness or leg swelling. I reviewed some prior similar admits in the medical history Past Medical History Cardiovascular: CAD, CHF, HTN, AR, Hyperlipidemia, Valve insufficiency Pulmonary: Asthma Psych: Anxiety Musculoskeletal: Other Rheumatologic: No pertinent hx Infectious disease: No pertinent hx, Other Renal/: No pertinent hx Endocrine: No pertinent hx Past Surgical History Past Surgical History: Other Family History Family History: Coronary Artery Disease Social History Smoke: <1 pack per day ALCOHOL: none Drugs: Other Vitals Vitals Vital Signs Date Time Temp Pulse Resp B/P (MAP) Pulse Ox O2 Delivery O2 Flow Rate FiO2 10/05/19 07:00 97.5 76 18 98/53 (68) 93 Room Air 97.5 10/04/19 21:13 2.0 Physical Exam General: Alert, Oriented X3, Cooperative, No acute distress Heart: Regular rate Lungs: Wheezing, Crackles Abdomen: Normal bowel sounds, No tenderness Extremities: No clubbing, No cyanosis Skin: No rashes, No breakdown Labs LABS Laboratory Tests Test 10/05/19 04:00 Sodium Level 133 mmol/L (136-145) Potassium Level 4.5 mmol/L (3.5-5.1) Chloride Level 98 mmol/L (98-107) Carbon Dioxide Level 19 mmol/L (21-32) Anion Gap 16 (6-14) Blood Urea Nitrogen 47 mg/dL (8-26) Creatinine 3.0 mg/dL (0.7-1.3) Estimated GFR (Cockcroft-Gault) 28.2 Glucose Level 81 mg/dL (70-99) Calcium Level 8.2 mg/dL (8.5-10.1) Magnesium Level 1.8 mg/dL (1.8-2.4) Assessment and Plan Assessmemt and Plan Problems Medical Problems: (1) Chest pain Status: Acute (2) Hypokalemia Status: Acute Comment Review of Relevant I have reviewed the following items nicolas (where applicable) has been applied. Labs Laboratory Tests Test 10/03/19 15:00 10/04/19 03:30 10/05/19 04:00 Urine Opiates Screen Pos (NEG) Urine Methadone Screen Neg (NEG) Urine Barbiturates Neg (NEG) Urine Phencyclidine Screen Neg (NEG) Urine Amphetamine/Methamphetamine Pos (NEG) Urine Benzodiazepines Screen Neg (NEG) Urine Cocaine Screen Neg (NEG) Urine Cannabinoids Screen Neg (NEG) Urine Ethyl Alcohol Neg (NEG) White Blood Count 5.6 x10^3/uL (4.0-11.0) Red Blood Count 4.32 x10^6/uL (4.30-5.70) Hemoglobin 13.2 g/dL (13.0-17.5) Hematocrit 40.2 % (39.0-53.0) Mean Corpuscular Volume 93 fL (79-100) Mean Corpuscular Hemoglobin 31 pg (25-35) Mean Corpuscular Hemoglobin Concent 33 g/dL (31-37) Red Cell Distribution Width 19.5 % (11.5-14.5) Platelet Count 335 x10^3/uL (140-400) Neutrophils (%) (Auto) 54 % (31-73) Lymphocytes (%) (Auto) 35 % (24-48) Monocytes (%) (Auto) 7 % (0-9) Eosinophils (%) (Auto) 3 % (0-3) Basophils (%) (Auto) 1 % (0-3) Neutrophils # (Auto) 3.0 x10^3/uL (1.8-7.7) Lymphocytes # (Auto) 1.9 x10^3/uL (1.0-4.8) Monocytes # (Auto) 0.4 x10^3/uL (0.0-1.1) Eosinophils # (Auto) 0.1 x10^3/uL (0.0-0.7) Basophils # (Auto) 0.1 x10^3/uL (0.0-0.2) Sodium Level 136 mmol/L (136-145) 133 mmol/L (136-145) Potassium Level 3.7 mmol/L (3.5-5.1) 4.5 mmol/L (3.5-5.1) Chloride Level 101 mmol/L (98-107) 98 mmol/L (98-107) Carbon Dioxide Level 22 mmol/L (21-32) 19 mmol/L (21-32) Anion Gap 13 (6-14) 16 (6-14) Blood Urea Nitrogen 40 mg/dL (8-26) 47 mg/dL (8-26) Creatinine 2.3 mg/dL (0.7-1.3) 3.0 mg/dL (0.7-1.3) Estimated GFR (Cockcroft-Gault) 38.3 28.2 BUN/Creatinine Ratio 17 (6-20) Glucose Level 102 mg/dL (70-99) 81 mg/dL (70-99) Calcium Level 8.0 mg/dL (8.5-10.1) 8.2 mg/dL (8.5-10.1) Total Bilirubin 0.6 mg/dL (0.2-1.0) Aspartate Amino Transf (AST/SGOT) 35 U/L (15-37) Alanine Aminotransferase (ALT/SGPT) 30 U/L (16-63) Alkaline Phosphatase 256 U/L (46-116) Total Protein 7.4 g/dL (6.4-8.2) Albumin 2.3 g/dL (3.4-5.0) Albumin/Globulin Ratio 0.5 (1.0-1.7) Magnesium Level 1.8 mg/dL (1.8-2.4) Laboratory Tests Test 10/05/19 04:00 Sodium Level 133 mmol/L (136-145) Potassium Level 4.5 mmol/L (3.5-5.1) Chloride Level 98 mmol/L (98-107) Carbon Dioxide Level 19 mmol/L (21-32) Anion Gap 16 (6-14) Blood Urea Nitrogen 47 mg/dL (8-26) Creatinine 3.0 mg/dL (0.7-1.3) Estimated GFR (Cockcroft-Gault) 28.2 Glucose Level 81 mg/dL (70-99) Calcium Level 8.2 mg/dL (8.5-10.1) Magnesium Level 1.8 mg/dL (1.8-2.4) Medications Current Medications Potassium Chloride (Klor-Con) 80 meq 1X ONCE PO Last administered on 10/02/19at 15:41; Start 10/02/19 at 16:00; Stop 10/02/19 at 16:01; Status DC Morphine Sulfate (Morphine Sulfate) 4 mg 1X ONCE IV Last administered on 10/02/19at 15:41; Start 10/02/19 at 15:30; Stop 10/02/19 at 15:35; Status DC Ondansetron HCl (Zofran) 4 mg PRN Q8HRS PRN IV NAUSEA/VOMITING; Start 10/02/19 at 18:30; Stop 10/03/19 at 18:29; Status DC Morphine Sulfate (Morphine Sulfate) 2 mg PRN Q2HR PRN IV PAIN Last administered on 10/02/19at 23:35; Start 10/02/19 at 18:30; Stop 10/03/19 at 18:29; Status DC Acetaminophen (Tylenol) 650 mg PRN Q6HRS PRN PO MILD PAIN / TEMP > 100.3'F; Start 10/02/19 at 19:30 Albuterol Sulfate (Ventolin Neb Soln) 2.5 mg PRN Q4HRS PRN NEB SHORTNESS OF BREATH; Start 10/02/19 at 19:30 Aspirin (Ecotrin) 81 mg DAILY PO Last administered on 10/04/19at 08:30; Start 10/03/19 at 09:00 Atorvastatin Calcium (Lipitor) 20 mg QHS PO Last administered on 10/04/19at 2 1:13; Start 10/02/19 at 21:00 Bumetanide (Bumex) 1 mg BID94 PO ; Start 10/03/19 at 09:00; Stop 10/02/19 at 20:17; Status DC Docusate Sodium (Colace) 100 mg BID PO Last administered on 10/04/19at 21:13; Start 10/02/19 at 21:00 Furosemide (Lasix) 40 mg DAILY PO Last administered on 10/04/19at 08:31; Start 10/03/19 at 09:00 Hydralazine HCl (Apresoline) 10 mg TID PO Last administered on 10/02/19at 22:34; Start 10/02/19 at 21:00; Stop 10/03/19 at 15:29; Status DC Isosorbide Mononitrate (Imdur) 30 mg DAILY PO ; Start 10/03/19 at 09:00 Metolazone (Zaroxolyn) 2.5 mg DAILY PO ; Start 10/03/19 at 09:00; Stop 10/03/19 at 15:29; Status DC Metoprolol Tartrate (Lopressor) 25 mg BID PO Last administered on 10/04/19at 21:14; Start 10/02/19 at 21:00 Polyethylene Glycol (miraLAX PACKET) 17 gm PRN DAILY PRN PO CONSTIPATION 1ST CHOICE Last administered on 10/03/19at 08:55; Start 10/02/19 at 19:30 Potassium Chloride (Klor-Con) 20 meq DAILYWBKFT PO Last administered on 10/04/19at 08:32; Start 10/03/19 at 08:00 Sacubitril/ Valsartan (Entresto 24 Mg-26 Mg) 1 tab BID PO Last administered on 10/02/19at 22:33; Start 10/02/19 at 21:00; Stop 10/03/19 at 15:29; Status DC Tramadol HCl (Ultram) 50 mg PRN Q6HRS PRN PO PAIN Last administered on 10/04/19 21:13; Start 10/02/19 at 19:30 Non-Formulary Medication (Efavirenz/ Emtricitab/ Tenofovir (Atripla Tablet)) 1 tab DAILY PO ; Start 10/03/19 at 09:00; Stop 10/04/19 at 07:30; Status DC Paroxetine HCl (Paxil) 40 mg DAILY PO Last administered on 10/04/19at 08:31; Start 10/03/19 at 09:00 Potassium Chloride (Klor-Con) 40 meq 1X ONCE PO Last administered on 10/02/19at 22:33; Start 10/02/19 at 22:00; Stop 10/02/19 at 22:01; Status DC Info (Non-Icu Electrolyte Protocol) 1 ea CONT PRN PRN MC PER PROTOCOL; Start 10/02/19 at 19:30 Lidocaine (Lidoderm) 1 patch DAILY TD Last administered on 10/04/19at 08:33; Start 10/03/19 at 09:00 Oxycodone/ Acetaminophen (Percocet 5/325) 1 tab PRN Q4HRS PRN PO MODERATE - SEVERE PAIN Last administered on 10/05/19at 01:17; Start 10/02/19 at 20:00 Enoxaparin Sodium (Lovenox Per Pharmacy Prophylaxis Dosing) 1 each PRN DAILY PRN MC SEE COMMENTS; Start 10/02/19 at 20:00 Enoxaparin Sodium (Lovenox 40mg Syringe) 40 mg Q24H SQ Last administered on 10/03/19at 20:11; Start 10/02/19 at 21:00 Miscellaneous (Lidoderm Patch Removal) 1 ea QHS MC Last administered on 10/03/19at 20:13; Start 10/03/19 at 21:00 Potassium Chloride (Klor-Con) 40 meq 1X ONCE PO Last administered on 10/03/19at 09:00; Start 10/03/19 at 08:00; Stop 10/03/19 at 08:01; Status DC Potassium Chloride (Klor-Con) 40 meq 1X ONCE PO Last administered on 10/03/19at 13:16; Start 10/03/19 at 12:00; Stop 10/03/19 at 12:01; Status DC Lidocaine (Lidoderm) 1 patch DAILY TD Last administered on 10/04/19at 08:34; Start 10/03/19 at 10:00; Stop 10/04/19 at 20:17; Status DC Miscellaneous (Lidoderm Patch Removal) 1 ea QHS MC Last administered on 10/03/19at 20:13; Start 10/03/19 at 21:00 Sodium Chloride 1,000 ml @ 60 mls/hr [id number] IV Last administered on 10/04/19at 05:51; Start 10/03/19 at 11:15; Stop 10/04/19 at 11:25; Status DC Sodium Chloride 1,000 ml @ 1,000 mls/hr 1X ONCE IV Last administered on 10/03/19at 15:15; Start 10/03/19 at 14:15; Stop 10/03/19 at 15:14; Status DC Potassium Chloride (Klor-Con) 40 meq 1X ONCE PO Last administered on 10/03/19at 15:56; Start 10/03/19 at 16:30; Stop 10/03/19 at 16:31; Status DC Ondansetron HCl (Zofran) 4 mg PRN Q8HRS PRN IVP NAUSEA/VOMITING 1ST CHOICE Last administered on 10/04/19at 00:33; Start 10/04/19 at 00:30; Stop 10/04/19 at 11:11; Status DC Ondansetron HCl (Zofran) 4 mg PRN Q4HRS PRN IVP NAUSEA/VOMITING 1ST CHOICE Last administered on 10/04/19at 11:39; Start 10/04/19 at 11:15 Active Scripts Active Lasix (Furosemide) 40 Mg Tablet 1 Tab PO DAILY 30 Days Tramadol Hcl 50 Mg Tablet 50 Mg PO PRN Q6HRS PRN 6 Days Atorvastatin Calcium 20 Mg Tablet 1 Tab PO DAILY 90 Days Paroxetine Hcl 40 Mg Tablet 1 Tab PO DAILY07 90 Days Polyethylene Glycol 3350 17 Gm Powd.pack 17 Gm PO PRN DAILY PRN 30 Days Dok (Docusate Sodium) 100 Mg Capsule 100 Mg PO BID 30 Days Metolazone 2.5 Mg Tablet 2.5 Mg PO DAILY 30 Days Bumetanide 1 Mg Tablet 1 Mg PO BID94 30 Days Metoprolol Tartrate 25 Mg Tablet 25 Mg PO BID 30 Days Atripla Tablet (Efavirenz/Emtricitab/Tenofovir) 1 Each Tablet 1 Tab PO DAILY 90 Days Tylenol (Acetaminophen) 325 Mg Tablet 650 Mg PO PRN Q6HRS PRN 30 Days Isosorbide Mononitrate Er (Isosorbide Mononitrate) 30 Mg Tab.er.24h 30 Mg PO DA TONEY 30 Days Hydralazine Hcl 10 Mg Tablet 10 Mg PO TID 30 Days Proair Hfa (Albuterol Sulfate) 8.5 Gm Hfa.aer.ad 2.5 Mg NEB PRN Q4HRS PRN 30 Days Klor-Con M20 (Potassium Chloride) 20 Meq Tab.er.prt 20 Meq PO DAILYWBKFT 10 Days Aspir 81 (Aspirin) 81 Mg Tablet. 1 Tab PO DAILY Reported Entresto 24 mg-26 mg Tablet (Sacubitril/Valsartan) 1 Each Tablet 1 Each PO BID Vitals/I & O Vital Sign - Last 24 Hours 10/04/19 10/04/19 10/04/19 10/04/19 11:00 15:00 19:00 20:00 Temp 97.9 98.6 97.5 97.9 98.6 97.5 Pulse 73 71 78 Resp 16 16 16 B/P (MAP) 102/77 (85) 97/70 (79) 97/66 (76) Pulse Ox 99 95 95 O2 Delivery Room Air Room Air Room Air 10/04/19 10/04/19 10/04/19 10/04/19 21:13 21:14 22:13 23:00 Temp 98.4 98.4 Pulse 78 74 Resp 18 B/P (MAP) 97/66 103/76 (85) Pulse Ox 92 O2 Delivery Nasal Cannula Room Air O2 Flow Rate 2.0 10/05/19 10/05/19 10/05/19 10/05/19 01:17 02:17 03:00 07:00 Temp 97.5 97.5 97.5 97.5 Pulse 73 76 Resp 18 18 B/P (MAP) 85/59 (68) 98/53 (68) Pulse Ox 91 93 O2 Delivery Room Air Room Air Room Air Intake and Output 10/04/19 10/04/19 10/05/19 15:00 23:00 07:00 Intake Total 200 ml 0 ml 120 ml Balance 200 ml 0 ml 120 ml Justicifation of Admission Dx: Justifications for Admission: Justification of Admission Dx: Yes CHF: Sev. Electrolyte Abnormal ROB MCLAIN MD Oct 05, 2019 08:54
[2019-10-05] MEDS: ISOSORBIDE MONONITRATE ER 30 MG TAB.ER.24H PO SCH (09:00)
[2019-10-05] MEDS: FUROSEMIDE 40 MG TABLET. PO SCH ×2 (09:00→09:54)
[2019-10-05] MEDS: METOPROLOL TART IMMED RELEASE 25 MG TABLET. PO SCH ×2 (09:00→22:05)
[2019-10-05] MEDS ORDERED: PERFLUTREN PROTEIN-A MICROSPHR 0.22 MG/ML 3 ML VIAL. IV ONE ×2 (09:24→12:15)
[2019-10-05] MEDS: PARoxetine 20 MG TABLET PO SCH (09:54)
[2019-10-05] MEDS: ASPIRIN ENTERIC COATED 81 MG TABLET.DR. PO SCH (09:54)
[2019-10-05] MEDS: POTASSIUM CHLORIDE 20 MEQ TABLET.ER. PO SCH (09:55)
[2019-10-05] MEDS: DOCUSATE SODIUM 100 MG CAPSULE. PO SCH ×2 (09:55→22:04)
[2019-10-05] MEDS: LIDOCAINE (700MG/PATCH) PATCH. TD SCH (09:56)
--- NOTE | 2019-10-05 10:05 | NUR ---
patient removed telemetry this a.m. and is refusing to have it replaced.
[2019-10-05 11:25] VITALS: BP 96/76
--- NOTE | 2019-10-05 11:33 | PDOC ---
Renal-Progress Notes Subjective Notes Notes CONFUSED History of Present Illness Hx of present illness NON COMPLAINT. GARRET IS WORSE Vitals Vitals Vital Signs Date Time Temp Pulse Resp B/P (MAP) Pulse Ox O2 Delivery O2 Flow Rate FiO2 10/05/19 11:25 98.1 76 16 96/76 (83) 90 Room Air 98.1 10/04/19 21:13 2.0 Weight Weight [ ] I.O. Intake and Output Intake and Output 10/05/19 07:00 Intake Total 320 ml Balance 320 ml Intake Oral 120 ml IV Total 200 ml # Voids 2 Labs Labs Laboratory Tests Test 10/05/19 04:00 Sodium Level 133 mmol/L (136-145) Potassium Level 4.5 mmol/L (3.5-5.1) Chloride Level 98 mmol/L (98-107) Carbon Dioxide Level 19 mmol/L (21-32) Anion Gap 16 (6-14) Blood Urea Nitrogen 47 mg/dL (8-26) Creatinine 3.0 mg/dL (0.7-1.3) Estimated GFR (Cockcroft-Gault) 28.2 Glucose Level 81 mg/dL (70-99) Calcium Level 8.2 mg/dL (8.5-10.1) Magnesium Level 1.8 mg/dL (1.8-2.4) Review of Systems Constitutional: yes: other (CONFUSED) Physical Exam General Appearance: no apparent distress Skin: warm Respiratory: bilateral CTA Heart: S1S2 Abdomen: soft, bowel sounds present Genitourinary: bladder flat Extremities: pulses present Neurology: alert, confused Musculoskeletal: low back pain, Other Assessment Assessment IMP GARRET WITH CR OF 3.0 CKD STAGE 3 WITH CR 1.5-2.0 CM WITH EF OF 20% ACUTE ON CHRONIC SYSTOLIC CHF-SEEMS COMPENSATED HIV ON HAART HYPOTENSION PLAN REPLACE K NEEDED RESUME IVF'S DIFFICULT FLUID BALANCE ALLOW HIGHER PERFUSION PRESSURES AGREE WITH STOPPING HYDRALAZINE AFTER LOAD REDUCTION POSSIBLE CARDIOLOGY EVAL AND TX WILL FOLLOW CHILO WHITE MD Oct 05, 2019 11:33
[2019-10-05 15:00] VITALS: BP 89/67
--- NOTE | 2019-10-05 17:09 | NUR ---
SW following. Reviewed chart and discussed with RN. Pt from home. Pt remains on room air. Pt COVID negative. SW awaiting to see if pt will need new dialysis setup. Pt not ready for discharge. Pt to have echo today. SW to follow.
--- NOTE | 2019-10-05 17:32 | CARD ---
MR#: [id number] Date of Study: 10/05/2019 Ordering Physician: CORTNEY LUKE, Referring Physician: CORTNEY LUKE Tech: Miya Blount [facility] APPROVED REPORT EXAM: Two-dimensional and M-mode echocardiogram with Doppler and color Doppler. Other Information Quality : GoodHR: 73bpm Rhythm : NSR INDICATION Dyspnea Chest Pain Echo Enhancing Agent Indication: Endocardial border delineation Agent/Amount Used: Optison 2mL RISK FACTORS Hypertension Smoking 2D DIMENSIONS Left Atrium(2D)5.7 (1.6-4.0cm)IVSd0.9 (0.7-1.1cm) Aortic Root(2D)3.2 (2.0-3.7cm)LVDd5.9 (3.9-5.9cm) LVOT Diameter1.9 (1.8-2.4cm)PWd1.1 (0.7-1.1cm) LVDs5.3 (2.5-4.0cm)FS (%) 11.1 % SV41.9 mlLVEF(%)23.8 (>50%) Aortic Valve AoV Peak Ju[place]o.62.0cm/sAoV VTI10.4cm AO Peak GR.1.5mmHgLVOT Peak [place]o.73.2cm/s AO Mean GR.1mmHgAVA (VMAX)3.39cm2 Mitral Valve MV E Mtllfcsi793.4cm/sMV DECEL [id number] MV A Qjqnmvwl88.5cm/sE/A Ratio3.0 Pulmonary Valve PV Peak Hbdujgwz03.7cm/s Tricuspid Valve TR P. [id number]/sTR Peak Gr.23mmHg LEFT VENTRICLE The Left Ventricle is mildly dilated. There is borderline concentric left ventricular hypertrophy. Th e ejection fraction is severely impaired.The Ejection Fraction is 10-15%. There is severe global hypo kinesis. Tissue Doppler imaging reveals severe left ventricular diastolic dysfunction. No left ventri nazanin thrombus noted on this study. There is no ventricular septal defect visualized. There is no left ventricular aneurysm. RIGHT VENTRICLE The right ventricle is mildly dilated. There is normal right ventricular wall thickness. RV Systolic function is borderline reduced. ATRIA The left atrium is severely dilated. The right atrium is moderately dilated. The interatrial septum i s intact with no evidence for an atrial septal defect or patent foramen ovale as noted on 2-D or Dopp ler imaging. AORTIC VALVE The aortic valve is normal in structure and function. Doppler and Color Flow revealed no significant aortic regurgitation. There is no significant aortic valvular stenosis. There is no aortic valvular v egetation. MITRAL VALVE The mitral valve is normal in structure and function. There is no evidence of mitral valve prolapse. There is no mitral valve stenosis. Doppler and Color-flow revealed severe mitral regurgitation. TRICUSPID VALVE The tricuspid valve is normal in structure and function. Doppler and Color Flow revealed severe to to rrential tricuspid regurgitation. Estimated PAP 38 mmHg. There is no tricuspid valve prolapse or vege tation. There is no tricuspid valve stenosis. PULMONIC VALVE The pulmonary valve is normal in structure and function. Doppler and Color Flow revealed mild pulmoni c valvular regurgitation. There is no pulmonic valvular stenosis. GREAT VESSELS The aortic root is normal in size. The ascending aorta is normal in size. IVC is dialated PERICARDIAL EFFUSION There is no evidence of significant pericardial effusion. Critical Notification Critical Value: No <Conclusion> The ejection fraction is severely impaired.The Ejection Fraction is 10-15%. There is severe global hypokinesis. Doppler and Color-flow revealed severe mitral regurgitation. Doppler and Color Flow revealed severe to torrential tricuspid regurgitation. Estimated PAP 38 mmHg. Doppler and Color Flow revealed mild pulmonic valvular regurgitation. 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 Signed by : Sergei Blakely, Electronically Approved : 10/05/2019 17:31:17
[2019-10-05 19:00] VITALS: BP 98/76
[2019-10-05] MEDS: ENOXAPARIN 40 MG/0.4 ML SYRINGE. SQ SCH (21:00)
[2019-10-05] MEDS: PATCH REMOVAL. MC SCH ×2 (21:00)
[2019-10-05] MEDS: ATORVASTATIN CALCIUM 20 MG TABLET PO SCH (22:04)
[2019-10-05] MEDS: traMADol 50 MG TABLET PO PRN (22:06)
[2019-10-05 23:00] VITALS: BP 94/72
[2019-10-06 03:00] VITALS: BP 109/83
--- NOTE | 2019-10-06 03:30 | NUR ---
Pt complained of his IV hurting when he bends his arm, pt has an AC IV. Pt wants new IV placed at this time. This RN unable to start IV at this time, informed pt that it would be a little while, but that it would get done. At 0430, attempted to go in to restart pts IV, pt states he is too tired to get a new one started right now, and that it will have to wait until morning.
[2019-10-06] MEDS: oxyCODONE/APAP 5/325 1 TAB TABLET PO PRN ×2 (04:24→21:02)
[2019-10-06 07:07] LABS: CALCIUM 8.7 mg/dL (8.5-10.1); CREATININE 2.7 mg/dL (0.7-1.3); GFR 31.8; MAGNESIUM 1.9 mg/dL (1.8-2.4); POTASSIUM 3.7 mmol/L (3.5-5.1)
[2019-10-06 07:29] VITALS: BP 100/77
[2019-10-06] MEDS: LIDOCAINE (700MG/PATCH) PATCH. TD SCH (09:00)
[2019-10-06] MEDS: ASPIRIN ENTERIC COATED 81 MG TABLET.DR. PO SCH (09:39)
[2019-10-06] MEDS: POTASSIUM CHLORIDE 20 MEQ TABLET.ER. PO SCH (09:39)
[2019-10-06] MEDS: PARoxetine 20 MG TABLET PO SCH (09:40)
[2019-10-06] MEDS: DOCUSATE SODIUM 100 MG CAPSULE. PO SCH ×2 (09:40→21:01)
[2019-10-06] MEDS: ISOSORBIDE MONONITRATE ER 30 MG TAB.ER.24H PO SCH (09:44)
--- NOTE | 2019-10-06 10:39 | PDOC ---
PROGRESS NOTES Date of Service: DATE: 10/06/19 TIME: 10:39 Chief Complaint Chief Complaint VTE Prophylaxis Ordered VTE Prophylaxis Devices: No VTE Pharmacological Prophylaxi: Yes IMPRESSION Assessment/Plan acute CHF exacerbation, systolic failure critcal hypokalemia severe malnutrition hypotension, volume depleted shortness of breath chest pain, for over a week, from prior cough, pain, and weakness HIV asthma, nebs, hx alcohol abuse remote cocaine abuse xochilt, worsening SEVERE PROTEIN-CALORIC MALNUTRITION admit, CV consult, some pain control iv fluid support lidoderm patch consult nephrology STOP HYDRALAZINE 39 min pt exam, chart review, > 50% of time spent with exam, chart review, pt care coordination Justicifation of Admission Dx: Justicifation of Admission Dx: Justifications for Admission: Justification of Admission Dx: Yes CHF: Sev. Electrolyte Abnormal History of Present Illness History of Present Illness History of Present Illness History of Present Illness Mr Perera is a 38 yo male w/ PMHx CAD s/p PCI with stenting, sCHF EF 20%, HTN, MO, Hyperlipidemia, Valve insufficiency MR moderate to severe, Asthma, Anxiety, HIV on HAART who came to ED for complains of SOB and worsening orthopnea, unable to lay down. Reports that he has been having episodes of chest pain 4/10 as well. he complains of chest pain with trouble breathing that been going on for 2 weeks. Patient said the pain is worse with cough or deep breathing or movement of his chest. He did have some right chest pain after coughing but otherwise denies. No palpitations, frequent dizziness or leg swelling. I reviewed some prior similar admits in the medical history Past Medical History Cardiovascular: CAD, CHF, HTN, MO, Hyperlipidemia, Valve insufficiency Pulmonary: Asthma Psych: Anxiety Musculoskeletal: Other Rheumatologic: No pertinent hx Infectious disease: No pertinent hx, Other Renal/: No pertinent hx Endocrine: No pertinent hx Past Surgical History Past Surgical History: Other Family History Family History: Coronary Artery Disease Social History Smoke: <1 pack per day ALCOHOL: none Drugs: Other Vitals Vitals Vital Signs Date Time Temp Pulse Resp B/P (MAP) Pulse Ox O2 Delivery O2 Flow Rate FiO2 10/06/19 09:44 71 92/63 10/06/19 07:29 97.4 18 98 Room Air 97.4 10/05/19 08:00 2.0 Physical Exam General: Alert, Oriented X3, Cooperative, No acute distress Heart: Regular rate Lungs: Wheezing, Crackles Abdomen: Normal bowel sounds, No tenderness Extremities: No clubbing, No cyanosis Skin: No rashes, No breakdown Labs LABS Laboratory Tests Test 10/06/19 06:10 Sodium Level 133 mmol/L (136-145) Potassium Level 3.7 mmol/L (3.5-5.1) Chloride Level 99 mmol/L (98-107) Carbon Dioxide Level 24 mmol/L (21-32) Anion Gap 10 (6-14) Blood Urea Nitrogen 50 mg/dL (8-26) Creatinine 2.7 mg/dL (0.7-1.3) Estimated GFR (Cockcroft-Gault) 31.8 Glucose Level 101 mg/dL (70-99) Calcium Level 8.7 mg/dL (8.5-10.1) Magnesium Level 1.9 mg/dL (1.8-2.4) Assessment and Plan Assessmemt and Plan Problems Medical Problems: (1) Chest pain Status: Acute (2) Hypokalemia Status: Acute Comment Review of Relevant I have reviewed the following items nicolas (where applicable) has been applied. Labs Laboratory Tests Test 10/05/19 04:00 10/06/19 06:10 Sodium Level 133 mmol/L (136-145) 133 mmol/L (136-145) Potassium Level 4.5 mmol/L (3.5-5.1) 3.7 mmol/L (3.5-5.1) Chloride Level 98 mmol/L (98-107) 99 mmol/L (98-107) Carbon Dioxide Level 19 mmol/L (21-32) 24 mmol/L (21-32) Anion Gap 16 (6-14) 10 (6-14) Blood Urea Nitrogen 47 mg/dL (8-26) 50 mg/dL (8-26) Creatinine 3.0 mg/dL (0.7-1.3) 2.7 mg/dL (0.7-1.3) Estimated GFR (Cockcroft-Gault) 28.2 31.8 Glucose Level 81 mg/dL (70-99) 101 mg/dL (70-99) Calcium Level 8.2 mg/dL (8.5-10.1) 8.7 mg/dL (8.5-10.1) Magnesium Level 1.8 mg/dL (1.8-2.4) 1.9 mg/dL (1.8-2.4) Laboratory Tests Test 10/06/19 06:10 Sodium Level 133 mmol/L (136-145) Potassium Level 3.7 mmol/L (3.5-5.1) Chloride Level 99 mmol/L (98-107) Carbon Dioxide Level 24 mmol/L (21-32) Anion Gap 10 (6-14) Blood Urea Nitrogen 50 mg/dL (8-26) Creatinine 2.7 mg/dL (0.7-1.3) Estimated GFR (Cockcroft-Gault) 31.8 Glucose Level 101 mg/dL (70-99) Calcium Level 8.7 mg/dL (8.5-10.1) Magnesium Level 1.9 mg/dL (1.8-2.4) Medications Current Medications Potassium Chloride (Klor-Con) 80 meq 1X ONCE PO Last administered on 10/02/19at 15:41; Start 10/02/19 at 16:00; Stop 10/02/19 at 16:01; Status DC Morphine Sulfate (Morphine Sulfate) 4 mg 1X ONCE IV Last administered on 10/02/19at 15:41; Start 10/02/19 at 15:30; Stop 10/02/19 at 15:35; Status DC Ondansetron HCl (Zofran) 4 mg PRN Q8HRS PRN IV NAUSEA/VOMITING; Start 10/02/19 at 18:30; Stop 10/03/19 at 18:29; Status DC Morphine Sulfate (Morphine Sulfate) 2 mg PRN Q2HR PRN IV PAIN Last administered on 10/02/19at 23:35; Start 10/02/19 at 18:30; Stop 10/03/19 at 18:29; Status DC Acetaminophen (Tylenol) 650 mg PRN Q6HRS PRN PO MILD PAIN / TEMP > 100.3'F; Start 10/02/19 at 19:30 Albuterol Sulfate (Ventolin Neb Soln) 2.5 mg PRN Q4HRS PRN NEB SHORTNESS OF BREATH; Start 10/02/19 at 19:30 Aspirin (Ecotrin) 81 mg DAILY PO Last administered on 10/06/19at 09:39; Start 10/03/19 at 09:00 Atorvastatin Calcium (Lipitor) 20 mg QHS PO Last administered on 10/05/19 22:04; Start 10/02/19 at 21:00 Bumetanide (Bumex) 1 mg BID94 PO ; Start 10/03/19 at 09:00; Stop 10/02/19 at 20:17; Status DC Docusate Sodium (Colace) 100 mg BID PO Last administered on 10/06/19 09:40; Start 10/02/19 at 21:00 Furosemide (Lasix) 40 mg DAILY PO Last administered on 10/04/19 08:31; Start 10/03/19 at 09:00 Hydralazine HCl (Apresoline) 10 mg TID PO Last administered on 10/02/19 22:34; Start 10/02/19 at 21:00; Stop 10/03/19 at 15:29; Status DC Isosorbide Mononitrate (Imdur) 30 mg DAILY PO Last administered on 10/06/19 09:44; Start 10/03/19 at 09:00 Metolazone (Zaroxolyn) 2.5 mg DAILY PO ; Start 10/03/19 at 09:00; Stop 10/03/19 at 15:29; Status DC Metoprolol Tartrate (Lopressor) 25 mg BID PO Last administered on 10/04/19 21:14; Start 10/02/19 at 21:00 Polyethylene Glycol (miraLAX PACKET) 17 gm PRN DAILY PRN PO CONSTIPATION 1ST CHOICE Last administered on 10/03/19at 08:55; Start 10/02/19 at 19:30 Potassium Chloride (Klor-Con) 20 meq DAILYWBKFT PO Last administered on 10/06/19 09:39; Start 10/03/19 at 08:00 Sacubitril/ Valsartan (Entresto 24 Mg-26 Mg) 1 tab BID PO Last administered on 10/02/19at 22:33; Start 10/02/19 at 21:00; Stop 10/03/19 at 15:29; Status DC Tramadol HCl (Ultram) 50 mg PRN Q6HRS PRN PO PAIN MODERATE (1ST CHOICE) Last administered on 10/05/19 22:06; Start 10/02/19 at 19:30 Non-Formulary Medication (Efavirenz/ Emtricitab/ Tenofovir (Atripla Tablet)) 1 tab DAILY PO ; Start 10/03/19 at 09:00; Stop 10/04/19 at 07:30; Status DC Paroxetine HCl (Paxil) 40 mg DAILY PO Last administered on 10/06/19at 09:40; Start 10/03/19 at 09:00 Potassium Chloride (Klor-Con) 40 meq 1X ONCE PO Last administered on 10/02/19at 22:33; Start 10/02/19 at 22:00; Stop 10/02/19 at 22:01; Status DC Info (Non-Icu Electrolyte Protocol) 1 ea CONT PRN PRN MC PER PROTOCOL; Start 10/02/19 at 19:30 Lidocaine (Lidoderm) 1 patch DAILY TD Last administered on 10/05/19at 09:56; Start 10/03/19 at 09:00 Oxycodone/ Acetaminophen (Percocet 5/325) 1 tab PRN Q4HRS PRN PO MOD - SEVERE PAIN (2ND CHOICE) Last administered on 10/06/19at 04:24; Start 10/02/19 at 20:00 Enoxaparin Sodium (Lovenox Per Pharmacy Prophylaxis Dosing) 1 each PRN DAILY PRN MC SEE COMMENTS; Start 10/02/19 at 20:00 Enoxaparin Sodium (Lovenox 40mg Syringe) 40 mg Q24H SQ Last administered on 10/03/19at 20:11; Start 10/02/19 at 21:00 Miscellaneous (Lidoderm Patch Removal) 1 ea QHS MC Last administered on 10/05/19at 21:00; Start 10/03/19 at 21:00 Potassium Chloride (Klor-Con) 40 meq 1X ONCE PO Last administered on 10/03/19at 09:00; Start 10/03/19 at 08:00; Stop 10/03/19 at 08:01; Status DC Potassium Chloride (Klor-Con) 40 meq 1X ONCE PO Last administered on 10/03/19at 13:16; Start 10/03/19 at 12:00; Stop 10/03/19 at 12:01; Status DC Lidocaine (Lidoderm) 1 patch DAILY TD Last administered on 10/04/19at 08:34; Start 10/03/19 at 10:00; Stop 10/04/19 at 20:17; Status DC Miscellaneous (Lidoderm Patch Removal) 1 ea QHS MC Last administered on 10/05/19at 21:00; Start 10/03/19 at 21:00 Sodium Chloride 1,000 ml @ 60 mls/hr [id number] IV Last administered on 10/04/19at 05:51; Start 10/03/19 at 11:15; Stop 10/04/19 at 11:25; Status DC Sodium Chloride 1,000 ml @ 1,000 mls/hr 1X ONCE IV Last administered on 10/03/19at 15:15; Start 10/03/19 at 14:15; Stop 10/03/19 at 15:14; Status DC Potassium Chloride (Klor-Con) 40 meq 1X ONCE PO Last administered on 10/03/19at 15:56; Start 10/03/19 at 16:30; Stop 10/03/19 at 16:31; Status DC Ondansetron HCl (Zofran) 4 mg PRN Q8HRS PRN IVP NAUSEA/VOMITING 1ST CHOICE Last administered on 10/04/19at 00:33; Start 10/04/19 at 00:30; Stop 10/04/19 at 11:11; Status DC Ondansetron HCl (Zofran) 4 mg PRN Q4HRS PRN IVP NAUSEA/VOMITING 1ST CHOICE Last administered on 10/04/19at 11:39; Start 10/04/19 at 11:15 Perflutren Protein Type A Microsphe (Optison) 0.66 mg STK-MED ONCE IV ; Start 10/05/19 at 09:24; Stop 10/05/19 at 09:25; Status DC Perflutren Protein Type A Microsphe (Optison) 0.66 mg 1X ONCE IV Last administered on 10/05/19at 12:09; Start 10/05/19 at 12:15; Stop 10/05/19 at 12:16; Status DC Active Scripts Active Lasix (Furosemide) 40 Mg Tablet 1 Tab PO DAILY 30 Days Tramadol Hcl 50 Mg Tablet 50 Mg PO PRN Q6HRS PRN 6 Days Atorvastatin Calcium 20 Mg Tablet 1 Tab PO DAILY 90 Days Paroxetine Hcl 40 Mg Tablet 1 Tab PO DAILY07 90 Days Polyethylene Glycol 3350 17 Gm Powd.pack 17 Gm PO PRN DAILY PRN 30 Days Dok (Docusate Sodium) 100 Mg Capsule 100 Mg PO BID 30 Days Metolazone 2.5 Mg Tablet 2.5 Mg PO DAILY 30 Days Bumetanide 1 Mg Tablet 1 Mg PO BID94 30 Days Metoprolol Tartrate 25 Mg Tablet 25 Mg PO BID 30 Days Atripla Tablet (Efavirenz/Emtricitab/Tenofovir) 1 Each Tablet 1 Tab PO DAILY 90 Days Tylenol (Acetaminophen) 325 Mg Tablet 650 Mg PO PRN Q6HRS PRN 30 Days Isosorbide Mononitrate Er (Isosorbide Mononitrate) 30 Mg Tab.er.24h 30 Mg PO DAILY 30 Days Hydralazine Hcl 10 Mg Tablet 10 Mg PO TID 30 Days Proair Hfa (Albuterol Sulfate) 8.5 Gm Hfa.aer.ad 2.5 Mg NEB PRN Q4HRS PRN 30 Days Klor-Con M20 (Potassium Chloride) 20 Meq Tab.er.prt 20 Meq PO DAILYWBKFT 10 Days Aspir 81 (Aspirin) 81 Mg Tablet. 1 Tab PO DAILY Reported Entresto 24 mg-26 mg Tablet (Sacubitril/Valsartan) 1 Each Tablet 1 Each PO BID Vitals/I & O Vital Sign - Last 24 Hours 10/05/19 10/05/19 10/05/19 10/05/19 11:25 15:00 19:00 20:16 Temp 98.1 97.9 97.8 98.1 97.9 97.8 Pulse 76 76 72 Resp 16 18 18 B/P (MAP) 96/76 (83) 89/67 (74) 98/76 (83) Pulse Ox 90 96 99 O2 Delivery Room Air Room Air Room Air Room Air 10/05/19 10/05/19 10/05/19 10/05/19 22:00 22:06 23:00 23:06 Temp 98.1 98.1 Pulse 77 Resp 20 18 20 B/P (MAP) 94/72 (79) Pulse Ox 97 O2 Delivery Room Air Room Air Room Air 10/06/19 10/06/19 10/06/19 10/06/19 03:00 04:24 05:24 07:29 Temp 97.6 97.4 97.6 97.4 Pulse 75 73 Resp 20 20 20 18 B/P (MAP) 109/83 (92) 100/77 (85) Pulse Ox 98 98 O2 Delivery Room Air Room Air Room Air 10/06/19 09:44 Pulse 71 B/P (MAP) 92/63 Intake and Output 10/05/19 10/05/19 10/06/19 15:00 23:00 07:00 Intake Total 200 ml 120 ml 360 ml Output Total 400 ml 100 ml Balance 200 ml -280 ml 260 ml Justicifation of Admission Dx: Justifications for Admission: Justification of Admission Dx: Yes CHF: Sev. Electrolyte Abnormal ROB MCLAIN MD Oct 06, 2019 10:39
[2019-10-06 11:00] VITALS: BP 103/72
--- NOTE | 2019-10-06 13:52 | PDOC ---
PROGRESS NOTES Date of Service DATE: 10/06/19 TIME: 13:50 Subjective Subjective SEEN IN FOLLOW UP OF ARF/CKD3 Objective Objective Vital Signs Date Time Temp Pulse Resp B/P (MAP) Pulse Ox O2 Delivery O2 Flow Rate FiO2 10/06/19 11:00 98.0 69 16 103/72 (82) 90 Room Air 98.0 10/05/19 08:00 2.0 Intake and Output 10/06/19 07:00 Intake Total 680 ml Output Total 500 ml Balance 180 ml Intake Oral 680 ml Output Urine Total 500 ml # Voids 1 Physical Exam Abdomen: Normal bowel sounds, Soft, No tenderness, No hepatosplenomegaly, No masses Heart: Regular rate, Normal S1, Normal S2, No murmurs, Gallops Extremities: No clubbing, No cyanosis, No edema, Normal pulses, No tenderness/swelling General: Alert, Oriented X3, Cooperative, No acute distress Lungs: Clear to auscultation, Normal air movement Psych/Mental Status: Other (ANXIOUS) Diagnosis RENAL FAILURE: Chronic (CKD stage III) Assessment Assessment Problems Medical Problems: (1) Chest pain Status: Acute (2) Hypokalemia Status: Acute Plan Plan of Care RENAL FUNCTION IS IMPROVING. HE HAS SEVERE CARDIOMYOPATHY. HE IS ANXIOUS ABOUT THIS. CONT CARDIAC MANAGEMENT AND FLUID BALANCE. Comment Review of Relevant I have reviewed the following items nicolas (where applicable) has been applied. Labs Laboratory Tests Test 10/05/19 04:00 10/06/19 06:10 Sodium Level 133 mmol/L (136-145) 133 mmol/L (136-145) Potassium Level 4.5 mmol/L (3.5-5.1) 3.7 mmol/L (3.5-5.1) Chloride Level 98 mmol/L (98-107) 99 mmol/L (98-107) Carbon Dioxide Level 19 mmol/L (21-32) 24 mmol/L (21-32) Anion Gap 16 (6-14) 10 (6-14) Blood Urea Nitrogen 47 mg/dL (8-26) 50 mg/dL (8-26) Creatinine 3.0 mg/dL (0.7-1.3) 2.7 mg/dL (0.7-1.3) Estimated GFR (Cockcroft-Gault) 28.2 31.8 Glucose Level 81 mg/dL (70-99) 101 mg/dL (70-99) Calcium Level 8.2 mg/dL (8.5-10.1) 8.7 mg/dL (8.5-10.1) Magnesium Level 1.8 mg/dL (1.8-2.4) 1.9 mg/dL (1.8-2.4) Laboratory Tests Test 10/06/19 06:10 Sodium Level 133 mmol/L (136-145) Potassium Level 3.7 mmol/L (3.5-5.1) Chloride Level 99 mmol/L (98-107) Carbon Dioxide Level 24 mmol/L (21-32) Anion Gap 10 (6-14) Blood Urea Nitrogen 50 mg/dL (8-26) Creatinine 2.7 mg/dL (0.7-1.3) Estimated GFR (Cockcroft-Gault) 31.8 Glucose Level 101 mg/dL (70-99) Calcium Level 8.7 mg/dL (8.5-10.1) Magnesium Level 1.9 mg/dL (1.8-2.4) Medications Current Medications Potassium Chloride (Klor-Con) 80 meq 1X ONCE PO Last administered on 10/02/19at 15:41; Start 10/02/19 at 16:00; Stop 10/02/19 at 16:01; Status DC Morphine Sulfate (Morphine Sulfate) 4 mg 1X ONCE IV Last administered on 10/02/19at 15:41; Start 10/02/19 at 15:30; Stop 10/02/19 at 15:35; Status DC Ondansetron HCl (Zofran) 4 mg PRN Q8HRS PRN IV NAUSEA/VOMITING; Start 10/02/19 at 18:30; Stop 10/03/19 at 18:29; Status DC Morphine Sulfate (Morphine Sulfate) 2 mg PRN Q2HR PRN IV PAIN Last administered on 10/02/19at 23:35; Start 10/02/19 at 18:30; Stop 10/03/19 at 18:29; Status DC Acetaminophen (Tylenol) 650 mg PRN Q6HRS PRN PO MILD PAIN / TEMP > 100.3'F; Start 10/02/19 at 19:30 Albuterol Sulfate (Ventolin Neb Soln) 2.5 mg PRN Q4HRS PRN NEB SHORTNESS OF BREATH; Start 10/02/19 at 19:30 Aspirin (Ecotrin) 81 mg DAILY PO Last administered on 10/06/19at 09:39; Start 10/03/19 at 09:00 Atorvastatin Calcium (Lipitor) 20 mg QHS PO Last administered on 10/05/19at 22:04; Start 10/02/19 at 21:00 Bumetanide (Bumex) 1 mg BID94 PO ; Start 10/03/19 at 09:00; Stop 10/02/19 at 20:17; Status DC Docusate Sodium (Colace) 100 mg BID PO Last administered on 10/06/19at 09:40; Start 10/02/19 at 21:00 Furosemide (Lasix) 40 mg DAILY PO Last administered on 10/04/19at 08:31; Start 10/03/19 at 09:00 Hydralazine HCl (Apresoline) 10 mg TID PO Last administered on 10/02/19at 22:34; Start 10/02/19 at 21:00; Stop 10/03/19 at 15:29; Status DC Isosorbide Mononitrate (Imdur) 30 mg DAILY PO Last administered on 10/06/19at 09:44; Start 10/03/19 at 09:00 Metolazone (Zaroxolyn) 2.5 mg DAILY PO ; Start 10/03/19 at 09:00; Stop 10/03/19 at 15:29; Status DC Metoprolol Tartrate (Lopressor) 25 mg BID PO Last administered on 10/04/19at 21:14; Start 10/02/19 at 21:00 Polyethylene Glycol (miraLAX PACKET) 17 gm PRN DAILY PRN PO CONSTIPATION 1ST CHOICE Last administered on 10/03/19at 08:55; Start 10/02/19 at 19:30 Potassium Chloride (Klor-Con) 20 meq DAILYWBKFT PO Last administered on 10/06/19at 09:39; Start 10/03/19 at 08:00 Sacubitril/ Valsartan (Entresto 24 Mg-26 Mg) 1 tab BID PO Last administered on 10/02/19at 22:33; Start 10/02/19 at 21:00; Stop 10/03/19 at 15:29; Status DC Tramadol HCl (Ultram) 50 mg PRN Q6HRS PRN PO PAIN MODERATE (1ST CHOICE) Last administered on 10/05/19at 22:06; Start 10/02/19 at 19:30 Non-Formulary Medication (Efavirenz/ Emtricitab/ Tenofovir (Atripla Tablet)) 1 tab DAILY PO ; Start 10/03/19 at 09:00; Stop 10/04/19 at 07:30; Status DC Paroxetine HCl (Paxil) 40 mg DAILY PO Last administered on 10/06/19at 09:40; Start 10/03/19 at 09:00 Potassium Chloride (Klor-Con) 40 meq 1X ONCE PO Last administered on 10/02/19at 22:33; Start 10/02/19 at 22:00; Stop 10/02/19 at 22:01; Status DC Info (Non-Icu Electrolyte Protocol) 1 ea CONT PRN PRN MC PER PROTOCOL; Start 10/02/19 at 19:30 Lidocaine (Lidoderm) 1 patch DAILY TD Last administered on 10/05/19at 09:56; Start 10/03/19 at 09:00 Oxycodone/ Acetaminophen (Percocet 5/325) 1 tab PRN Q4HRS PRN PO MOD - SEVERE PAIN (2ND CHOICE) Last administered on 10/06/19at 04:24; Start 10/02/19 at 20:00 Enoxaparin Sodium (Lovenox Per Pharmacy Prophylaxis Dosing) 1 each PRN DAILY PRN MC SEE COMMENTS; Start 10/02/19 at 20:00 Enoxaparin Sodium (Lovenox 40mg Syringe) 40 mg Q24H SQ Last administered on 10/03/19at 20:11; Start 10/02/19 at 21:00 Miscellaneous (Lidoderm Patch Removal) 1 ea QHS MC Last administered on 10/05/19at 21:00; Start 10/03/19 at 21:00 Potassium Chloride (Klor-Con) 40 meq 1X ONCE PO Last administered on 10/03/19at 09:00; Start 10/03/19 at 08:00; Stop 10/03/19 at 08:01; Status DC Potassium Chloride (Klor-Con) 40 meq 1X ONCE PO Last administered on 10/03/19at 13:16; Start 10/03/19 at 12:00; Stop 10/03/19 at 12:01; Status DC Lidocaine (Lidoderm) 1 patch DAILY TD Last administered on 10/04/19at 08:34; Start 10/03/19 at 10:00; Stop 10/04/19 at 20:17; Status DC Miscellaneous (Lidoderm Patch Removal) 1 ea QHS MC Last administered on 10/05/19at 21:00; Start 10/03/19 at 21:00 Sodium Chloride 1,000 ml @ 60 mls/hr [id number] IV Last administered on 10/04/19at 05:51; Start 10/03/19 at 11:15; Stop 10/04/19 at 11:25; Status DC Sodium Chloride 1,000 ml @ 1,000 mls/hr 1X ONCE IV Last administered on 10/03/19at 15:15; Start 10/03/19 at 14:15; Stop 10/03/19 at 15:14; Status DC Potassium Chloride (Klor-Con) 40 meq 1X ONCE PO Last administered on 10/03/19at 15:56; Start 10/03/19 at 16:30; Stop 10/03/19 at 16:31; Status DC Ondansetron HCl (Zofran) 4 mg PRN Q8HRS PRN IVP NAUSEA/VOMITING 1ST CHOICE Last administered on 10/04/19at 00:33; Start 10/04/19 at 00:30; Stop 10/04/19 at 11:11; Status DC Ondansetron HCl (Zofran) 4 mg PRN Q4HRS PRN IVP NAUSEA/VOMITING 1ST CHOICE Last administered on 10/04/19at 11:39; Start 10/04/19 at 11:15 Perflutren Protein Type A Microsphe (Optison) 0.66 mg STK-MED ONCE IV ; Start 10/05/19 at 09:24; Stop 10/05/19 at 09:25; Status DC Perflutren Protein Type A Microsphe (Optison) 0.66 mg 1X ONCE IV Last administered on 10/05/19at 12:09; Start 10/05/19 at 12:15; Stop 10/05/19 at 12:16; Status DC Active Scripts Active Lasix (Furosemide) 40 Mg Tablet 1 Tab PO DAILY 30 Days Tramadol Hcl 50 Mg Tablet 50 Mg PO PRN Q6HRS PRN 6 Days Atorvastatin Calcium 20 Mg Tablet 1 Tab PO DAILY 90 Days Paroxetine Hcl 40 Mg Tablet 1 Tab PO DAILY07 90 Days Polyethylene Glycol 3350 17 Gm Powd.pack 17 Gm PO PRN DAILY PRN 30 Days Dok (Docusate Sodium) 100 Mg Capsule 100 Mg PO BID 30 Days Metolazone 2.5 Mg Tablet 2.5 Mg PO DAILY 30 Days Bumetanide 1 Mg Tablet 1 Mg PO BID94 30 Days Metoprolol Tartrate 25 Mg Tablet 25 Mg PO BID 30 Days Atripla Tablet (Efavirenz/Emtricitab/Tenofovir) 1 Each Tablet 1 Tab PO DAILY 90 Days Tylenol (Acetaminophen) 325 Mg Tablet 650 Mg PO PRN Q6HRS PRN 30 Days Isosorbide Mononitrate Er (Isosorbide Mononitrate) 30 Mg Tab.er.24h 30 Mg PO DAILY 30 Days Hydralazine Hcl 10 Mg Tablet 10 Mg PO TID 30 Days Proair Hfa (Albuterol Sulfate) 8.5 Gm Hfa.aer.ad 2.5 Mg NEB PRN Q4HRS PRN 30 Days Klor-Con M20 (Potassium Chloride) 20 Meq Tab.er.prt 20 Meq PO DAILYWBKFT 10 Days Aspir 81 (Aspirin) 81 Mg Tablet. 1 Tab PO DAILY Reported Entresto 24 mg-26 mg Tablet (Sacubitril/Valsartan) 1 Each Tablet 1 Each PO BID Vitals/I & O Vital Sign - Last 24 Hours 10/05/19 10/05/19 10/05/19 10/05/19 15:00 19:00 20:16 22:00 Temp 97.9 97.8 97.9 97.8 Pulse 76 72 Resp 18 20 18 B/P (MAP) 89/67 (74) 98/76 (83) Pulse Ox 96 99 O2 Delivery Room Air Room Air Room Air Room Air 10/05/19 10/05/19 10/05/19 10/06/19 22:06 23:00 23:06 03:00 Temp 98.1 97.6 98.1 97.6 Pulse 77 75 Resp 20 18 20 20 B/P (MAP) 94/72 (79) 109/83 (92) Pulse Ox 97 98 O2 Delivery Room Air Room Air 10/06/19 10/06/19 10/06/19 10/06/19 04:24 05:24 07:29 09:44 Temp 97.4 97.4 Pulse 73 71 Resp 20 20 18 B/P (MAP) 100/77 (85) 92/63 Pulse Ox 98 O2 Delivery Room Air Room Air Room Air 10/06/19 11:00 Temp 98.0 98.0 Pulse 69 Resp 16 B/P (MAP) 103/72 (82) Pulse Ox 90 O2 Delivery Room Air Intake and Output 10/05/19 10/05/19 10/06/19 15:00 23:00 07:00 Intake Total 200 ml 120 ml 360 ml Output Total 400 ml 100 ml Balance 200 ml -280 ml 260 ml Justicifation of Admission Dx: Justifications for Admission: Justification of Admission Dx: Yes CHF: Sev. Electrolyte Abnormal LUCIUS PAGAN MD Oct 06, 2019 13:52
--- NOTE | 2019-10-06 14:08 | PDOC ---
Provider Note Provider Note Patient is resting in bed. I had a long discussion with the patient today regarding his cardiac status. I feel that the patient has type 2 cardiorenal syndrome and progressing to chronic shock state Given his CKD, HIV and poor compliance issues with substance abuse, he likely will not be a candidate in short term for advanced heart failure therapies. I have asked the patient to bring his family in for a family meeting. Pending the family meeting, if we can get some reassurance from his support structure that he will ultimately f/u and be able to comply with medical therapy, we will consider discussion for transfer to [facility] for advanced heart failure therapies. Currently, his BP, renal failure will not allow initiation of Entresto. Will continue asa, Toprol XL, and lasix. May benefit from RHC. Will monitor. Thanks Justicifation of Admission Dx: Justifications for Admission: Justification of Admission Dx: Yes CHF: Sev. Electrolyte Abnormal MAT CADET MD Oct 06, 2019 14:08
[2019-10-06] MEDS: LORazepam 0.5 MG TABLET PO PRN (14:16)
[2019-10-06] MEDS: FUROSEMIDE 40 MG TABLET. PO SCH (14:17)
[2019-10-06 15:00] VITALS: BP 92/67
[2019-10-06] MEDS: PATCH REMOVAL. MC SCH (15:22)
--- NOTE | 2019-10-06 15:30 | NUR ---
Have assumed care of this patient. Patient appears to be sleeping, resp deep and regular, covers pulled over head.
[2019-10-06 19:31] VITALS: BP 95/62
[2019-10-06] MEDS: ATORVASTATIN CALCIUM 20 MG TABLET PO SCH (21:01)
[2019-10-06] MEDS: ENOXAPARIN 40 MG/0.4 ML SYRINGE. SQ SCH (21:02)
[2019-10-06 23:00] VITALS: BP 100/70
[2019-10-07 03:20] VITALS: BP 124/93
--- NOTE | 2019-10-07 03:49 | NUR ---
PT STATE THAT HIS EF HAS BEEN 10-15% IN THE PAST AND HE WAS ABLE TO GET IT UP TO 25-35%. PT SEEMS TO THINK THAT THE DR'S AREN'T TELLING HIM EVERYTHING THAT IS MEDICALLY WRONG WITH HIM. HE STATES THAT THE DR NEEDED TO LET HIM KNOW IF THERE'S SOMETHING THAT HE CAN DO TO BETTER HIS LIFE. HE SAID THAT HE WAS TOLD THAT HE ONLY HAVE 2 YRS TO LIVE ACCORDING TO THE DR. PT WAS DEPRESSED AT THE BEGINNING OF THE SHIFT BUT LATER FELL ASLEEP AFTER GETTING A PAIN MED. OCCASIONALLY PT YELPS OUT AND LOUDLY MOAN, WHICH HE SAYS, "THAT'S JUST HIM". POOR PROGRESS TOWARDS DC GOALS, WILL CONTINUE TO MONITOR.
[2019-10-07 07:00] VITALS: BP 113/81
[2019-10-07 07:54] LABS: ALBUMIN 2.2 g/dL (3.4-5.0); ALBUMIN/GLOBULIN RATIO 0.4 (1.0-1.7); CALCIUM 8.1 mg/dL (8.5-10.1); POTASSIUM 3.5 mmol/L (3.5-5.1); TOTAL BILIRUBIN 0.7 mg/dL (0.2-1.0); TOTAL PROTEIN 7.3 g/dL (6.4-8.2)
[2019-10-07] MEDS: LIDOCAINE (700MG/PATCH) PATCH. TD SCH (09:00)
[2019-10-07] MEDS: ASPIRIN ENTERIC COATED 81 MG TABLET.DR. PO SCH (09:49)
[2019-10-07] MEDS: FUROSEMIDE 40 MG TABLET. PO SCH (09:49)
[2019-10-07] MEDS: POTASSIUM CHLORIDE 20 MEQ TABLET.ER. PO SCH (09:49)
[2019-10-07] MEDS: PARoxetine 20 MG TABLET PO SCH (09:50)
[2019-10-07] MEDS: DOCUSATE SODIUM 100 MG CAPSULE. PO SCH (09:50)
[2019-10-07] MEDS: oxyCODONE/APAP 5/325 1 TAB TABLET PO PRN ×2 (09:58→15:42)
--- NOTE | 2019-10-07 10:56 | PDOC ---
PROGRESS NOTES Date of Service: DATE: 10/07/19 TIME: 10:56 Chief Complaint Chief Complaint VTE Prophylaxis Ordered VTE Prophylaxis Devices: No VTE Pharmacological Prophylaxi: Yes IMPRESSION Assessment/Plan acute CHF exacerbation, systolic failure critcal hypokalemia severe malnutrition hypotension, volume depleted shortness of breath chest pain, for over a week, from prior cough, pain, and weakness HIV asthma, nebs, hx alcohol abuse remote cocaine abuse xochilt, worsening SEVERE PROTEIN-CALORIC MALNUTRITION admit, CV consult, some pain control iv fluid support lidoderm patch consult nephrology STOP HYDRALAZINE CONSIDER [facility] TRANSFER FOR advanced heart failure care , [facility] nurse to arrange transfer 37 min pt exam, chart review, > 50% of time spent with exam, chart review, pt care coordination Justicifation of Admission Dx: Justicifation of Admission Dx: Justifications for Admission: Justification of Admission Dx: Yes CHF: Sev. Electrolyte Abnormal History of Present Illness History of Present Illness History of Present Illness History of Present Illness Mr Perera is a 38 yo male w/ PMHx CAD s/p PCI with stenting, sCHF EF 20%, HTN, [place], Hyperlipidemia, Valve insufficiency MR moderate to severe, Asthma, Anxiety, HIV on HAART who came to ED for complains of SOB and worsening orthopnea, unable to lay down. Reports that he has been having episodes of chest pain 4/10 as well. he complains of chest pain with trouble breathing that been going on for 2 weeks. Patient said the pain is worse with cough or deep breathing or movement of his chest. He did have some right chest pain after coughing but otherwise denies. No palpitations, frequent dizziness or leg swelling. I reviewed some prior similar admits in the medical history Past Medical History Cardiovascular: CAD, CHF, HTN, AZ, Hyperlipidemia, Valve insufficiency Pulmonary: Asthma Psych: Anxiety Musculoskeletal: Other Rheumatologic: No pertinent hx Infectious disease: No pertinent hx, Other Renal/: No pertinent hx Endocrine: No pertinent hx Past Surgical History Past Surgical History: Other Family History Family History: Coronary Artery Disease Social History Smoke: <1 pack per day ALCOHOL: none Drugs: Other Vitals Vitals Vital Signs Date Time Temp Pulse Resp B/P (MAP) Pulse Ox O2 Delivery O2 Flow Rate FiO2 10/07/19 09:58 20 92 Room Air 10/07/19 07:00 98.4 80 113/81 (92) 98.4 10/06/19 20:00 2.0 Physical Exam General: Alert, Oriented X3, Cooperative, No acute distress Heart: Regular rate, Normal S1, Normal S2, No murmurs, Gallops Lungs: Wheezing, Crackles Abdomen: Normal bowel sounds, Soft, No tenderness, No hepatosplenomegaly, No masses Extremities: No clubbing, No cyanosis, No edema, Normal pulses, No tenderness/swelling Skin: No rashes, No breakdown Labs LABS Laboratory Tests Test 10/07/19 06:30 Sodium Level 136 mmol/L (136-145) Potassium Level 3.5 mmol/L (3.5-5.1) Chloride Level 101 mmol/L (98-107) Carbon Dioxide Level 25 mmol/L (21-32) Anion Gap 10 (6-14) Blood Urea Nitrogen 43 mg/dL (8-26) Creatinine 2.0 mg/dL (0.7-1.3) Estimated GFR (Cockcroft-Gault) 45.0 BUN/Creatinine Ratio 22 (6-20) Glucose Level 94 mg/dL (70-99) Calcium Level 8.1 mg/dL (8.5-10.1) Total Bilirubin 0.7 mg/dL (0.2-1.0) Aspartate Amino Transf (AST/SGOT) 80 U/L (15-37) Alanine Aminotransferase (ALT/SGPT) 66 U/L (16-63) Alkaline Phosphatase 313 U/L (46-116) Total Protein 7.3 g/dL (6.4-8.2) Albumin 2.2 g/dL (3.4-5.0) Albumin/Globulin Ratio 0.4 (1.0-1.7) Assessment and Plan Assessmemt and Plan Problems Medical Problems: (1) Chest pain Status: Acute (2) Hypokalemia Status: Acute Comment Review of Relevant I have reviewed the following items nicolas (where applicable) has been applied. Labs Laboratory Tests Test 10/06/19 06:10 10/07/19 06:30 Sodium Level 133 mmol/L (136-145) 136 mmol/L (136-145) Potassium Level 3.7 mmol/L (3.5-5.1) 3.5 mmol/L (3.5-5.1) Chloride Level 99 mmol/L (98-107) 101 mmol/L (98-107) Carbon Dioxide Level 24 mmol/L (21-32) 25 mmol/L (21-32) Anion Gap 10 (6-14) 10 (6-14) Blood Urea Nitrogen 50 mg/dL (8-26) 43 mg/dL (8-26) Creatinine 2.7 mg/dL (0.7-1.3) 2.0 mg/dL (0.7-1.3) Estimated GFR (Cockcroft-Gault) 31.8 45.0 Glucose Level 101 mg/dL (70-99) 94 mg/dL (70-99) Calcium Level 8.7 mg/dL (8.5-10.1) 8.1 mg/dL (8.5-10.1) Magnesium Level 1.9 mg/dL (1.8-2.4) BUN/Creatinine Ratio 22 (6-20) Total Bilirubin 0.7 mg/dL (0.2-1.0) Aspartate Amino Transf (AST/SGOT) 80 U/L (15-37) Alanine Aminotransferase (ALT/SGPT) 66 U/L (16-63) Alkaline Phosphatase 313 U/L (46-116) Total Protein 7.3 g/dL (6.4-8.2) Albumin 2.2 g/dL (3.4-5.0) Albumin/Globulin Ratio 0.4 (1.0-1.7) Laboratory Tests Test 10/07/19 06:30 Sodium Level 136 mmol/L (136-145) Potassium Level 3.5 mmol/L (3.5-5.1) Chloride Level 101 mmol/L (98-107) Carbon Dioxide Level 25 mmol/L (21-32) Anion Gap 10 (6-14) Blood Urea Nitrogen 43 mg/dL (8-26) Creatinine 2.0 mg/dL (0.7-1.3) Estimated GFR (Cockcroft-Gault) 45.0 BUN/Creatinine Ratio 22 (6-20) Glucose Level 94 mg/dL (70-99) Calcium Level 8.1 mg/dL (8.5-10.1) Total Bilirubin 0.7 mg/dL (0.2-1.0) Aspartate Amino Transf (AST/SGOT) 80 U/L (15-37) Alanine Aminotransferase (ALT/SGPT) 66 U/L (16-63) Alkaline Phosphatase 313 U/L (46-116) Total Protein 7.3 g/dL (6.4-8.2) Albumin 2.2 g/dL (3.4-5.0) Albumin/Globulin Ratio 0.4 (1.0-1.7) Medications Current Medications Potassium Chloride (Klor-Con) 80 meq 1X ONCE PO Last administered on 10/02/19at 15:41; Start 10/02/19 at 16:00; Stop 10/02/19 at 16:01; Status DC Morphine Sulfate (Morphine Sulfate) 4 mg 1X ONCE IV Last administered on 10/02/19at 15:41; Start 10/02/19 at 15:30; Stop 10/02/19 at 15:35; Status DC Ondansetron HCl (Zofran) 4 mg PRN Q8HRS PRN IV NAUSEA/VOMITING; Start 10/02/19 at 18:30; Stop 10/03/19 at 18:29; Status DC Morphine Sulfate (Morphine Sulfate) 2 mg PRN Q2HR PRN IV PAIN Last administered on 10/02/19at 23:35; Start 10/02/19 at 18:30; Stop 10/03/19 at 18:29; Status DC Acetaminophen (Tylenol) 650 mg PRN Q6HRS PRN PO MILD PAIN / TEMP > 100.3'F Last administered on 10/07/19at 09:58; Start 10/02/19 at 19:30 Albuterol Sulfate (Ventolin Neb Soln) 2.5 mg PRN Q4HRS PRN NEB SHORTNESS OF BREATH; Start 10/02/19 at 19:30 Aspirin (Ecotrin) 81 mg DAILY PO Last administered on 10/07/19at 09:49; Start 10/03/19 at 09:00 Atorvastatin Calcium (Lipitor) 20 mg QHS PO Last administered on 10/06/19at 21:01; Start 10/02/19 at 21:00 Bumetanide (Bumex) 1 mg BID94 PO ; Start 10/03/19 at 09:00; Stop 10/02/19 at 20:17; Status DC Docusate Sodium (Colace) 100 mg BID PO Last administered on 10/07/19at 09:50; Start 10/02/19 at 21:00 Furosemide (Lasix) 40 mg DAILY PO Last administered on 10/07/19at 09:49; Start 10/03/19 at 09:00 Hydralazine HCl (Apresoline) 10 mg TID PO Last administered on 10/02/19at 22:34; Start 10/02/19 at 21:00; Stop 10/03/19 at 15:29; Status DC Isosorbide Mononitrate (Imdur) 30 mg DAILY PO Last administered on 10/06/19at 09:44; Start 10/03/19 at 09:00; Stop 10/06/19 at 14:02; Status DC Metolazone (Zaroxolyn) 2.5 mg DAILY PO ; Start 10/03/19 at 09:00; Stop 10/03/19 at 15:29; Status DC Metoprolol Tartrate (Lopressor) 25 mg BID PO Last administered on 10/04/19at 21:14; Start 10/02/19 at 21:00; Stop 10/06/19 at 14:02; Status DC Polyethylene Glycol (miraLAX PACKET) 17 gm PRN DAILY PRN PO CONSTIPATION 1ST CHOICE Last administered on 10/03/19at 08:55; Start 10/02/19 at 19:30 Potassium Chloride (Klor-Con) 20 meq DAILYWBKFT PO Last administered on 10/07/19at 09:49; Start 10/03/19 at 08:00 Sacubitril/ Valsartan (Entresto 24 Mg-26 Mg) 1 tab BID PO Last administered on 10/02/19at 22:33; Start 10/02/19 at 21:00; Stop 10/03/19 at 15:29; Status DC Tramadol HCl (Ultram) 50 mg PRN Q6HRS PRN PO PAIN MODERATE (1ST CHOICE) Last administered on 10/05/19at 22:06; Start 10/02/19 at 19:30 Non-Formulary Medication (Efavirenz/ Emtricitab/ Tenofovir (Atripla Tablet)) 1 tab DAILY PO ; Start 10/03/19 at 09:00; Stop 10/04/19 at 07:30; Status DC Paroxetine HCl (Paxil) 40 mg DAILY PO Last administered on 10/07/19at 09:50; Start 10/03/19 at 09:00 Potassium Chloride (Klor-Con) 40 meq 1X ONCE PO Last administered on 10/02/19at 22:33; Start 10/02/19 at 22:00; Stop 10/02/19 at 22:01; Status DC Info (Non-Icu Electrolyte Protocol) 1 ea CONT PRN PRN MC PER PROTOCOL; Start 10/02/19 at 19:30 Lidocaine (Lidoderm) 1 patch DAILY TD Last administered on 10/05/19at 09:56; Start 10/03/19 at 09:00 Oxycodone/ Acetaminophen (Percocet 5/325) 1 tab PRN Q4HRS PRN PO MOD - SEVERE PAIN (2ND CHOICE) Last administered on 10/07/19at 09:58; Start 10/02/19 at 20:00 Enoxaparin Sodium (Lovenox Per Pharmacy Prophylaxis Dosing) 1 each PRN DAILY PRN MC SEE COMMENTS; Start 10/02/19 at 20:00 Enoxaparin Sodium (Lovenox 40mg Syringe) 40 mg Q24H SQ Last administered on 10/06/19at 21:02; Start 10/02/19 at 21:00 Miscellaneous (Lidoderm Patch Removal) 1 ea QHS MC Last administered on 10/05/19at 21:00; Start 10/03/19 at 21:00 Potassium Chloride (Klor-Con) 40 meq 1X ONCE PO Last administered on 10/03/19at 09:00; Start 10/03/19 at 08:00; Stop 10/03/19 at 08:01; Status DC Potassium Chloride (Klor-Con) 40 meq 1X ONCE PO Last administered on 10/03/19at 13:16; Start 10/03/19 at 12:00; Stop 10/03/19 at 12:01; Status DC Lidocaine (Lidoderm) 1 patch DAILY TD Last administered on 10/04/19at 08:34; Start 10/03/19 at 10:00; Stop 10/04/19 at 20:17; Status DC Miscellaneous (Lidoderm Patch Removal) 1 ea QHS MC Last administered on 10/05/19 at 21:00; Start 10/03/19 at 21:00; Stop 10/06/19 at 14:03; Status DC Sodium Chloride 1,000 ml @ 60 mls/hr [id number] IV Last administered on 10/04/19at 05:51; Start 10/03/19 at 11:15; Stop 10/04/19 at 11:25; Status DC Sodium Chloride 1,000 ml @ 1,000 mls/hr 1X ONCE IV Last administered on 10/03/19at 15:15; Start 10/03/19 at 14:15; Stop 10/03/19 at 15:14; Status DC Potassium Chloride (Klor-Con) 40 meq 1X ONCE PO Last administered on 10/03/19at 15:56; Start 10/03/19 at 16:30; Stop 10/03/19 at 16:31; Status DC Ondansetron HCl (Zofran) 4 mg PRN Q8HRS PRN IVP NAUSEA/VOMITING 1ST CHOICE Last administered on 10/04/19at 00:33; Start 10/04/19 at 00:30; Stop 10/04/19 at 11:11; Status DC Ondansetron HCl (Zofran) 4 mg PRN Q4HRS PRN IVP NAUSEA/VOMITING 1ST CHOICE Last administered on 10/04/19at 11:39; Start 10/04/19 at 11:15 Perflutren Protein Type A Microsphe (Optison) 0.66 mg STK-MED ONCE IV ; Start 10/05/19 at 09:24; Stop 10/05/19 at 09:25; Status DC Perflutren Protein Type A Microsphe (Optison) 0.66 mg 1X ONCE IV Last administered on 10/05/19at 12:09; Start 10/05/19 at 12:15; Stop 10/05/19 at 12:16; Status DC Lorazepam (Ativan) 0.5 mg PRN Q12HRS PRN PO ANXIETY / AGITATION Last administered on 10/06/19at 14:16; Start 10/06/19 at 14:00 Active Scripts Active Lasix (Furosemide) 40 Mg Tablet 1 Tab PO DAILY 30 Days Tramadol Hcl 50 Mg Tablet 50 Mg PO PRN Q6HRS PRN 6 Days Atorvastatin Calcium 20 Mg Tablet 1 Tab PO DAILY 90 Days Paroxetine Hcl 40 Mg Tablet 1 Tab PO DAILY07 90 Days Polyethylene Glycol 3350 17 Gm Powd.pack 17 Gm PO PRN DAILY PRN 30 Days Dok (Docusate Sodium) 100 Mg Capsule 100 Mg PO BID 30 Days Metolazone 2.5 Mg Tablet 2.5 Mg PO DAILY 30 Days Bumetanide 1 Mg Tablet 1 Mg PO BID94 30 Days Metoprolol Tartrate 25 Mg Tablet 25 Mg PO BID 30 Days Atripla Tablet (Efavirenz/Emtricitab/Tenofovir) 1 Each Tablet 1 Tab PO DAILY 90 Days Tylenol (Acetaminophen) 325 Mg Tablet 650 Mg PO PRN Q6HRS PRN 30 Days Isosorbide Mononitrate Er (Isosorbide Mononitrate) 30 Mg Tab.er.24h 30 Mg PO DAILY 30 Days Hydralazine Hcl 10 Mg Tablet 10 Mg PO TID 30 Days Proair Hfa (Albuterol Sulfate) 8.5 Gm Hfa.aer.ad 2.5 Mg NEB PRN Q4HRS PRN 30 Days Klor-Con M20 (Potassium Chloride) 20 Meq Tab.er.prt 20 Meq PO DAILYWBKFT 10 Days Aspir 81 (Aspirin) 81 Mg Tablet. 1 Tab PO DAILY Reported Entresto 24 mg-26 mg Tablet (Sacubitril/Valsartan) 1 Each Tablet 1 Each PO BID Vitals/I & O Vital Sign - Last 24 Hours 10/06/19 10/06/19 10/06/19 10/06/19 11:00 15:00 19:31 20:00 Temp 98.0 97.0 97.5 98.0 97.0 97.5 Pulse 69 77 78 Resp 16 14 14 B/P (MAP) 103/72 (82) 92/67 (75) 95/62 (73) Pulse Ox 90 97 97 O2 Delivery Room Air Room Air Room Air Room Air O2 Flow Rate 2.0 10/06/19 10/06/19 10/06/19 10/07/19 21:02 22:02 23:00 03:20 Temp 97.4 97.3 97.4 97.3 Pulse 84 80 Resp 12 16 18 18 B/P (MAP) 100/70 (80) 124/93 (103) Pulse Ox 97 92 O2 Delivery Room Air Room Air Room Air Room Air 10/07/19 10/07/19 07:00 09:58 Temp 98.4 98.4 Pulse 80 Resp 32 20 B/P (MAP) 113/81 (92) Pulse Ox 93 92 O2 Delivery Room Air Room Air Intake and Output 8/15/20 8/15/20 8/16/20 15:00 23:00 07:00 Intake Total 720 ml 480 ml Output Total 0 ml Balance 720 ml 480 ml 0 ml Justicifation of Admission Dx: Justifications for Admission: Justification of Admission Dx: Yes CHF: Sev. Electrolyte Abnormal ROB MCLAIN MD Oct 07, 2019 10:56
[2019-10-07 11:00] VITALS: BP 144/100
--- NOTE | 2019-10-07 12:08 | PDOC ---
CARDIOLOGY PROGRESS NOTE SUBJECTIVE: Denies any current chest pain but continues to have dyspnea at rest. No syncope or palpitations. OBJECTIVE: Vital Signs/I&O: Vital Signs Date Time Temp Pulse Resp B/P (MAP) Pulse Ox O2 Delivery O2 Flow Rate FiO2 10/07/19 09:58 20 92 Room Air 10/07/19 07:00 98.4 80 113/81 (92) 98.4 10/06/19 20:00 2.0 I & O 10/06/19 10/06/19 10/07/19 15:00 23:00 07:00 Intake Total 720 ml 480 ml Output Total 0 ml Balance 720 ml 480 ml 0 ml Objective: GEN.: No apparent distress. Alert and oriented. HEENT: Head is normocephalic, atraumatic NECK: Supple. LUNGS: Clear to auscultation. HEART: RRR, ABDOMEN: Soft, nontender. Positive bowel sounds. EXTREMITIES: Without any cyanosis. NEUROLOGIC: Normal speech, normal tone PSYCHIATRIC: Normal affect, normal mood. SKIN: No ulcerations CURRENT MEDICATIONS: Current Medications Medications (Trade) Dose Ordered Sig/Wilbur Route PRN Reason Start Time Stop Time Status Last Admin Dose Admin Lorazepam (Ativan) 0.5 mg PRN Q12HRS PRN PO ANXIETY / AGITATION 10/06/19 14:00 10/06/19 14:16 DIAGNOSTIC TESTING: Labs: Laboratory Tests 10/07/19 06:30 Laboratory Tests Test 10/07/19 06:30 Sodium Level 136 mmol/L (136-145) Potassium Level 3.5 mmol/L (3.5-5.1) Chloride Level 101 mmol/L (98-107) Carbon Dioxide Level 25 mmol/L (21-32) Anion Gap 10 (6-14) Blood Urea Nitrogen 43 mg/dL (8-26) H Creatinine 2.0 mg/dL (0.7-1.3) H Estimated GFR (Cockcroft-Gault) 45.0 BUN/Creatinine Ratio 22 (6-20) H Glucose Level 94 mg/dL (70-99) Calcium Level 8.1 mg/dL (8.5-10.1) L Total Bilirubin 0.7 mg/dL (0.2-1.0) Aspartate Amino Transf (AST/SGOT) 80 U/L (15-37) H Alkaline Phosphatase 313 U/L (46-116) H Total Protein 7.3 g/dL (6.4-8.2) Albumin 2.2 g/dL (3.4-5.0) L Albumin/Globulin Ratio 0.4 (1.0-1.7) L ASSESSMENT: 1. Acute on chronic systolic and diastolic heart failure 2. 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 HIV status positive 4. Polysubstance abuse PLAN: 1. I had a thorough and honest conversation with the patient and his parents. At this present time the patient again given his current symptoms of dyspnea, volume overload and renal insufficiency is exhibiting chronic cardiogenic shock state. I think for his long-term prognosis given his multiple heart failure admissions and known long-term evidence of severe cardiomyopathy it would be best to have him be evaluated by [facility] for advanced heart failure therapies. I discussed with the patient and his family that he may not necessarily qualify for advanced heart failure therapies depending on evaluation but that given his age that this would be the best long-term option for him. We discussed the need for cessation of substance abuse, continue treatment of his HIV and monitoring of his renal function. He likely needs inotropic support at least for the short-term or close monitoring with initiation of afterload reduction although it is difficult to start him on goal directed medical therapy due to his renal failure and hypotension. We have requested initial transfer to [facility], awaiting their decisi on. Family and patient are in agreement for inpatient transfer. Justicifation of Admission Dx: Justifications for Admission: Justification of Admission Dx: Yes CHF: Sev. Electrolyte Abnormal MAT CADET MD Oct 07, 2019 12:07
[2019-10-07] MEDS: LORazepam 0.5 MG TABLET PO PRN (13:24)
[2019-10-07 15:00] VITALS: BP 117/79
--- NOTE | 2019-10-07 15:29 | SNU/HH DC ---
DISCHARGE ORDERS DISCHARGE INFORMATION: DISCHARGE DATE: Oct 07, 2019 FINAL DIAGNOSIS 1. Acute on chronic systolic and diastolic heart failure 2. 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 severe cardiomyopathy, 4. HIV status positive 5. Polysubstance abuse 6. Ejection Fraction is 10-15%. Problems Medical Problems: (1) Chest pain Status: Acute (2) Hypokalemia Status: Acute CONDITION ON DISCHARGE: Stable CODE STATUS: Code Status: Full POST DISCHARGE ORDERS: ACTIVITY ORDERS: No restrictions, Activity as tolerated WEIGHT BEARING STATUS: No restrictions, As tolerated BATHING ORDERS: Shower-keep dressing dry DIET AFTER DISCHARGE: Cardiac WOUND/INCISION CARE: May get incision wet CHECKS AFTER DISCHARGE: CHECKS AFTER DISCHARGE: Check blood press - daily, Check your Temp as needed, Weigh Yourself Daily FOLLOW-UP: ADDITIONAL FOLLOW-UP: to acute care TREATMENT/EQUIPMENT ORDERS: ADAPTIVE EQUIPMENT NEEDED: None, Front wheeled walker RESPIRATORY EQUIPMENT NEEDED: Nebulizer Physical Therapy For: Evalulation/Treatment Occupational Therapy For: Evaluation/Treatment Speech Language Pathology For: Evaluation/Treatment DISCHARGE MEDICATIONS: Home Meds Active Scripts Furosemide (LASIX) 40 Mg Tablet, 1 TAB PO DAILY for 30 Days, #20 TAB 0 Refills Prov:PATTY PALAFOX DO 08/21/19 Tramadol Hcl (TRAMADOL HCL) 50 Mg Tablet, 50 MG PO PRN Q6HRS PRN for PAIN for 6 Days, #16 TAB Prov:SYLVIA PASTOR MD 07/31/19 Atorvastatin Calcium (ATORVASTATIN CALCIUM) 20 Mg Tablet, 1 TAB PO DAILY for CHF for 90 Days, #90 TAB 1 Refill Prov:SYLVIA PASTOR MD 07/31/19 Paroxetine Hcl (PAROXETINE HCL) 40 Mg Tablet, 1 TAB PO DAILY07 for Depression for 90 Days, #90 TAB Prov:SYLVIA PASTOR MD 07/31/19 Polyethylene Glycol 3350 (POLYETHYLENE GLYCOL 3350) 17 Gm Powd.pack, 17 GM PO PRN DAILY PRN for CONSTIPATION 1ST CHOICE for 30 Days, #30 PKT Prov:ROB MCLAIN MD 06/08/19 Docusate Sodium (DOK) 100 Mg Capsule, 100 MG PO BID for PREVENT HARD STOOLS for 30 Days, #60 CAP Prov:ROB MCLAIN MD 06/08/19 Metolazone (METOLAZONE) 2.5 Mg Tablet, 2.5 MG PO DAILY for HEART FAILURE for 30 Days, #30 TAB Prov:ROB MCLAIN MD 06/08/19 Bumetanide (BUMETANIDE) 1 Mg Tablet, 1 MG PO BID94 for HEART FAILURE for 30 Days, #60 TAB Prov:ROB MCLAIN MD 06/08/19 Metoprolol Tartrate (METOPROLOL TARTRATE) 25 Mg Tablet, 25 MG PO BID for HEART for 30 Days, #60 TAB Prov:ROB MCLAIN MD 06/08/19 Efavirenz/Emtricitab/Tenofovir (ATRIPLA TABLET) 1 Each Tablet, 1 TAB PO DAILY for HIV for 90 Days, #90 CAP Prov:ROB MCLAIN MD 04/29/19 Acetaminophen (TYLENOL) 325 Mg Tablet, 650 MG PO PRN Q6HRS PRN for mild pain/temp for 30 Days, #60 TAB Prov:ROB MCLAIN MD 04/29/19 Isosorbide Mononitrate (ISOSORBIDE MONONITRATE ER) 30 Mg Tab.er.24h, 30 MG PO DAILY for angina, heart for 30 Days, #30 TAB.SR Prov:ROB MCLAIN MD 04/29/19 Hydralazine Hcl (HYDRALAZINE HCL) 10 Mg Tablet, 10 MG PO TID for blood pressure for 30 Days, #90 TAB Prov:ROB MCLAIN MD 04/29/19 Albuterol Sulfate (Proair Hfa) 8.5 Gm Hfa.aer.ad, 2.5 MG NEB PRN Q4HRS PRN for SHORTNESS OF BREATH for 30 Days, #100 INHALER Prov:ROB MCLAIN MD 04/29/19 Potassium Chloride (KLOR-CON M20) 20 Meq Tab.er.prt, 20 MEQ PO DAILYWBKFT for supplement for 10 Days, #10 TAB.SR Prov:ROB MCLAIN MD 09/04/18 Aspirin (ASPIR 81) 81 Mg Tablet.dr, 1 TAB PO DAILY, #30 TAB 5 Refills Prov:VINEET LIZAMA MD 08/04/16 Reported Medications Sacubitril/Valsartan (Entresto 24 mg-26 mg Tablet) 1 Each Tablet, 1 EACH PO BID for CHF, TAB 5/3/19 KIRK ZIMMER MD Oct 07, 2019 15:29
[2019-10-07 17:50] VITALS: BP 127/86
--- NOTE | 2019-10-07 17:55 | NUR ---
Patient discharged for transfer to [facility] per EMS. Report has been called to receiving nurse Daysi Aggarwal. Copy of chart sent with patient. Patient home meds retrieved from pharmacy and sent with patient.
--- NOTE | 2019-10-23 15:06 | PDOC3 ---
Discharge Summary Visit Information Date of Admission: Oct 02, 2019 Date of Discharge: Oct 07, 2019 Final Diagnosis 1. Acute on chronic systolic and diastolic heart failure 2. 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 severe cardiomyopathy, 4. HIV status positive 5. Polysubstance abuse, including alcohol 6. systolic CHF, NYHA 4, Ejection Fraction is 10-15%. 7. tobacco use disorder 8. critical hypokalemia on admit, 2.3 9. severe malnutrition, alb 2.3 10. CKD 3, Problems Medical Problems: (1) Chest pain Status: Acute (2) Hypokalemia Status: Acute Brief Hospital Course Allergies Allergies Coded Allergies Type Severity Reaction Last Updated Verified No Known Drug Allergies 08/01/16 No Brief Hospital Course Mr. Perera is a 39 old admitted for complains of chest pain, stabbing pain to right chest duplicated with deep breathing and coughing and was positional. still substance abuse, meth, THC, ongoing tobacco use. v Discharge Information Condition at Discharge: Improved Follow Up: Weeks Disposition/Orders: D/C to a Longterm Scheduled Aspirin (Aspir 81) 81 Mg Tablet., 1 TAB PO DAILY, #30 Ref 5 Prescribed by: VINEET LIZAMA on 08/04/16 0805 Last Action: Continued on 10/02/191917 by KIRK ZIMMER Atorvastatin Calcium (Atorvastatin Calcium) 20 Mg Tablet, 1 TAB PO DAILY for CHF for 90 Days, #90 Ref 1 Prescribed by: SYLVIA PASTOR MD on 07/31/19 1356 Last Action: Continued on 10/02/191917 by KIRK ZIMMER Bumetanide (Bumetanide) 1 Mg Tablet, 1 MG PO BID94 for HEART FAILURE for 30 Days, #60 Prescribed by: ROB MCLAIN MD on 06/08/19 1312 Last Action: Continued on 10/02/191917 by KIRK ZIMMER Docusate Sodium (Dok) 100 Mg Capsule, 100 MG PO BID for PREVENT HARD STOOLS for 30 Days, #60 Prescribed by: ROB MCLAIN MD on 06/08/19 1312 Last Action: Continued on 10/02/191917 by KIRK ZIMMER Efavirenz/Emtricitab/Tenofovir (Atripla Tablet) 1 Each Tablet, 1 TAB PO DAILY for HIV for 90 Days, #90 Prescribed by: RBO MCLAIN MD on 04/29/19 1702 Last Action: Converted on 10/02/191917 by KIRK ZIMMER Furosemide (Lasix) 40 Mg Tablet, 1 TAB PO DAILY for 30 Days, #20 Ref 0 Prescribed by: PATTY PALAFOX D.O. on 08/21/19 0206 Last Action: Continued on 10/02/191917 by KIRK ZIMMER Hydralazine Hcl (Hydralazine Hcl) 10 Mg Tablet, 10 MG PO TID for blood pressure for 30 Days, #90 Prescribed by: ROB MCLAIN MD on 04/29/19 1242 Last Action: Continued on 10/02/191917 by KIRK ZIMMER Isosorbide Mononitrate (Isosorbide Mononitrate Er) 30 Mg Tab.er.24h, 30 MG PO DAILY for angina, heart for 30 Days, #30 Prescribed by: ROB MCLAIN MD on 04/29/19 1242 Last Action: Continued on 10/02/191917 by KIRK ZIMMER Metolazone (Metolazone) 2.5 Mg Tablet, 2.5 MG PO DAILY for HEART FAILURE for 30 Days, #30 Prescribed by: ROB MCLAIN MD on 06/08/19 1312 Last Action: Continued on 10/02/191917 by KIRK ZIMMER Metoprolol Tartrate (Metoprolol Tartrate) 25 Mg Tablet, 25 MG PO BID for HEART for 30 Days, #60 Prescribed by: ROB MCLAIN MD on 06/08/19 1312 Last Action: Continued on 10/02/191917 by KIRK ZIMMER Paroxetine Hcl (Paroxetine Hcl) 40 Mg Tablet, 1 TAB PO DAILY07 for Depression for 90 Days, #90 Prescribed by: SYLVIA PASTOR MD on 07/31/19 1356 Last Action: Converted on 10/02/191917 by KIRK ZIMMER Potassium Chloride (Klor-Con M20) 20 Meq Tab.er.prt, 20 MEQ PO DAILYWBKFT for supplement for 10 Days, #10 Prescribed by: ROB MCLAIN MD on 09/04/18 1454 Last Action: Continued on 10/02/191917 by KIRK ZIMMER Sacubitril/Valsartan (Entresto 24 mg-26 mg Tablet) 1 Each Tablet, 1 EACH PO BID for CHF, (Reported) Entered as Reported by: DONNA JACOB on 06/23/18 0537 Last Action: Continued on 10/02/191917 by KIRK ZIMMER Scheduled PRN Acetaminophen (Tylenol) 325 Mg Tablet, 650 MG PO PRN Q6HRS PRN for mild pain/temp for 30 Days, #60 Prescribed by: ROB MCLAIN MD on 04/29/19 1242 Last Action: Continued on 10/02/191917 by KIRK ZIMMER Albuterol Sulfate (Proair Hfa) 8.5 Gm Hfa.aer.ad, 2.5 MG NEB PRN Q4HRS PRN for SHORTNESS OF BREATH for 30 Days, #100 Prescribed by: ROB MCLAIN MD on 04/29/19 1242 Last Action: Continued on 10/02/191917 by KIRK ZIMMER Polyethylene Glycol 3350 (Polyethylene Glycol 3350) 17 Gm Powd.pack, 17 GM PO PRN DAILY PRN for CONSTIPATION 1ST CHOICE for 30 Days, #30 Prescribed by: ROB MCLAIN MD on 06/08/19 1312 Last Action: Continued on 10/02/191917 by KIRK ZIMMER Tramadol Hcl (Tramadol Hcl) 50 Mg Tablet, 50 MG PO PRN Q6HRS PRN for PAIN for 6 Days, #16 Prescribed by: SYLVIA PASTOR MD on 07/31/19 1357 Last Action: Continued on 10/02/191917 by KIRK ZIMMER Patient Instructions Patient Instructions > 30 min face to face Justicifation of Admission Dx: Justifications for Admission: Justification of Admission Dx: Yes CHF: Sev. Electrolyte Abnormal KIRK ZIMMER MD Oct 23, 2019 15:06
== END 2019-10-07 17:55 | disposition short-term general hospital (02) | DRG 291 ==
LOC: ER 13:03 → ED HOLD 18:47 → 6 SOUTH 21:46 → 5 NORTH 10-04 16:57
PROVIDERS: ADMIT Internal Medicine; ATTEND Internal Medicine
DX: I13.0 Hypertensive heart and chronic kidney disease with heart failure and stage 1 through stage 4 chronic kidney disease, or unspecified chronic kidney disease (principal); I50.43 Acute on chronic combined systolic (congestive) and diastolic (congestive) heart failure; E43 Unspecified severe protein-calorie malnutrition; N17.9 Acute kidney failure, unspecified; E87.6 Hypokalemia; I42.8 Other cardiomyopathies; E78.5 Hyperlipidemia, unspecified; E86.9 Volume depletion, unspecified; F10.20 Alcohol dependence, uncomplicated; F15.90 Other stimulant use, unspecified, uncomplicated; F17.210 Nicotine dependence, cigarettes, uncomplicated; F31.9 Bipolar disorder, unspecified; F41.9 Anxiety disorder, unspecified; I25.10 Atherosclerotic heart disease of native coronary artery without angina pectoris; J20.9 Acute bronchitis, unspecified; J45.909 Unspecified asthma, uncomplicated; N18.3 Chronic kidney disease, stage 3 (moderate); Z21 Asymptomatic human immunodeficiency virus [HIV] infection status; Z79.899 Other long term (current) drug therapy; Z82.49 Family history of ischemic heart disease and other diseases of the circulatory system; Z91.19 Patient's noncompliance with other medical treatment and regimen; Z95.5 Presence of coronary angioplasty implant and graft; I95.9 Hypotension, unspecified; Z20.828 Contact with and (suspected) exposure to other viral communicable diseases; I25.2 Old myocardial infarction; I42.9 Cardiomyopathy, unspecified; Z68.31 Body mass index [BMI] 31.0-31.9, adult
CPT/HCPCS: 96374; 99285; C8929; 36415; 71045; 80048; 80053; 80307; 81001; 83690; 83735; 83880; 84484; 85025; 85610; 85730; 93005; J1650; J2270; J2405; J7030; Q9956; G0378; U0003-CS

== ENCOUNTER 2019-10-26 12:29 | Emergency (ER) | payer MEDICARE, MEDICAID ==
[~2019-10-26] VITALS: Ht 177.8 cm; Wt 68.2 kg
[2019-10-26] MEDS ORDERED: ASPIRIN 325 MG TABLET PO ONE (13:00)
[2019-10-26 13:24] LABS: HEMATOCRIT 42.3 % (39.0-53.0); HEMOGLOBIN 13.9 g/dL (13.0-17.5); MEAN CORPUSCULAR HEMOGLOBIN 31 pg (25-35); MEAN CORPUSCULAR HGB CONC 33 g/dL (31-37); MEAN CORPUSCULAR VOLUME 94 fL (79-100); PLATELET COUNT 356 x10^3/uL (140-400); RED BLOOD COUNT 4.52 x10^6/uL (4.30-5.70); RED CELL DISTRIBUTION WIDTH 19.7 % (11.5-14.5)
--- NOTE | 2019-10-26 13:24 | RAD ---
CHEST AP ONLY History: Reason: cough, COVID PUI / Spl. Instructions: / History: Comparison: October 02, 2019 Findings: Ill-defined patchy mid and basilar opacities bilaterally. No pleural effusion. No pneumothorax. Enlarged cardiac size, unchanged. Impression: 1. Ill-defined patchy mid and bibasilar opacities, unchanged, may represent atelectasis or consolidations. 2. Unchanged enlarged cardiac size, may represent cardiac megaly and/or pericardial effusion. Electronically signed by: Dwight Tao DO (10/26/2019 1:20 PM) [id number]
[2019-10-26 13:25] LABS: BASO % 1 % (0-3); EOS # 0.2 x10^3/uL (0.0-0.7); EOS % 3 % (0-3); LYMPH # 1.3 x10^3/uL (1.0-4.8); LYMPH % 22 % (24-48); MONO # 0.3 x10^3/uL (0.0-1.1); MONO % 5 % (0-9); NEUT # 4.1 x10^3/uL (1.8-7.7); NEUT % 69 % (31-73)
[2019-10-26] MEDS ORDERED: BUMETANIDE 1 MG/4 ML VIAL. IV ONE (13:30)
[2019-10-26 13:50] LABS: CALCIUM 8.6 mg/dL (8.5-10.1); CREATININE 1.6 mg/dL (0.7-1.3); GFR 58.2; POTASSIUM 4.4 mmol/L (3.5-5.1)
--- NOTE | 2019-10-26 13:50 | PHYS DOC ---
Past Medical History Past Medical History: Anxiety, Bipolar, CAD, CHF, Depression, [place] Additional Past Medical Histor: KYLEE, drugs, alcohol abuse, Past Surgical History: Other Additional Past Surgical Histo: heart stents Smoking Status: Current Every Day Smoker Alcohol Use: Occasionally Drug Use: Methamphetamine General Adult EDM: Chief Complaint: SHORTNESS OF BREATH HPI: HPI: Patient is a 39 year old [f__sex] who presents with [] Review of Systems: Review of Systems: Constitutional: Denies fever or chills. [] Eyes: Denies change in visual acuity. [] HENT: Denies nasal congestion or sore throat. [] Respiratory: Denies cough or shortness of breath. [] Cardiovascular: Denies chest pain or edema. [] GI: Denies abdominal pain, nausea, vomiting, bloody stools or diarrhea. [] : Denies dysuria. [] Musculoskeletal: Denies back pain or joint pain. [] Integument: Denies rash. [] Neurologic: Denies headache, focal weakness or sensory changes. [] Endocrine: Denies polyuria or polydipsia. [] Lymphatic: Denies swollen glands. [] Psychiatric: Denies depression or anxiety. [] Heart Score: Risk Factors: Risk Factors: DM, Current or recent (<one month) smoker, HTN, HLP, family history of CAD, obesity. Risk Scores: Score 0 - 3: 2.5% MACE over next 6 weeks - Discharge Home Score 4 - 6: 20.3% MACE over next 6 weeks - Admit for Clinical Observation Score 7 - 10: 72.7% MACE over next 6 weeks - Early Invasive Strategies Current Medications: Current Medications Medications (Trade) Dose Ordered Sig/[facility] Start Time Stop Time Status Last Admin Dose Admin Aspirin (Georgina Aspirin) 325 mg 1X ONCE 10/26/19 13:00 10/26/19 13:01 DC 10/26/19 13:31 325 MG Bumetanide (Bumex) 1 mg 1X ONCE 10/26/19 13:30 10/26/19 13:31 DC 10/26/19 13:31 1 MG Allergies: Allergies: Allergies Coded Allergies Type Severity Reaction Last Updated Verified No Known Drug Allergies 08/01/16 No Physical Exam: PE: Constitutional: Well developed, well nourished, no acute distress, non-toxic appearance. [] HENT: Normocephalic, atraumatic, bilateral external ears normal, oropharynx moist, no oral exudates, nose normal. [] Eyes: PERRLA, EOMI, conjunctiva normal, no discharge. [] Neck: Normal range of motion, no tenderness, supple, no stridor. [] Cardiovascular:Heart rate regular rhythm, no murmur [] Lungs & Thorax: Bilateral breath sounds clear to auscultation [] Abdomen: Bowel sounds normal, soft, no tenderness, no masses, no pulsatile masses. [] Skin: Warm, dry, no erythema, no rash. [] Back: No tenderness, no CVA tenderness. [] Extremities: No tenderness, no cyanosis, no clubbing, ROM intact, no edema. [] Neurologic: Alert and oriented X 3, normal motor function, normal sensory fu nction, no focal deficits noted. [] Psychologic: Affect normal, judgement normal, mood normal. [] Current Patient Data: Labs: Laboratory Tests Test 10/26/19 12:57 White Blood Count 6.0 x10^3/uL (4.0-11.0) Red Blood Count 4.52 x10^6/uL (4.30-5.70) Hemoglobin 13.9 g/dL (13.0-17.5) Hematocrit 42.3 % (39.0-53.0) Mean Corpuscular Volume 94 fL (79-100) Mean Corpuscular Hemoglobin 31 pg (25-35) Mean Corpuscular Hemoglobin Concent 33 g/dL (31-37) Red Cell Distribution Width 19.7 % (11.5-14.5) H Platelet Count 356 x10^3/uL (140-400) Neutrophils (%) (Auto) 69 % (31-73) Lymphocytes (%) (Auto) 22 % (24-48) L Monocytes (%) (Auto) 5 % (0-9) Eosinophils (%) (Auto) 3 % (0-3) Basophils (%) (Auto) 1 % (0-3) Neutrophils # (Auto) 4.1 x10^3/uL (1.8-7.7) Lymphocytes # (Auto) 1.3 x10^3/uL (1.0-4.8) Monocytes # (Auto) 0.3 x10^3/uL (0.0-1.1) Eosinophils # (Auto) 0.2 x10^3/uL (0.0-0.7) Basophils # (Auto) 0.0 x10^3/uL (0.0-0.2) Laboratory Tests 10/26/19 12:57 Vital Signs: Vital Signs Date Time Temp Pulse Resp B/P (MAP) Pulse Ox O2 Delivery O2 Flow Rate FiO2 10/26/19 12:45 98.2 95 20 131/88 (102) 95 Room Air 98.2 EKG: EKG: @1249 NSR at 95bpm, NO ST elevation, QRS 98ms, QT/QTc 398/504ms Radiology/Procedures: Radiology/Procedures: [] Course & Med Decision Making: Course & Med Decision Making Pertinent Labs and Imaging studies reviewed. (See chart for details) [] Dragon Disclaimer: Dragon Disclaimer: This electronic medical record was generated, in whole or in part, using a voice recognition dictation system. Departure Departure Impression: Primary Impression: CHF exacerbation Qualified Codes: I50.9 - Heart failure, unspecified Additional Impressions: Medication refill Suspected 2019 novel coronavirus infection Disposition: HOME, SELF-CARE Condition: IMPROVED Referrals: MOHINDER GO MD (PCP) Patient Instructions: Heart Failure, Cedh-oz-Vodk, Medication Refill, Emergency Department Additional Instructions: Please call and follow up with your CHF team at . You have been tested for or diagnosed with COVID-19. It is an infection caused by a new type of coronavirus. COVID-19 will cause cold-like or mild flu symptoms in most. It can cause more severe symptoms like problems breathing in some. There is no treatment for COVID-19. The body will clear the infection over time. Self-care will help to ease discomfort. Steps to Take: Self-Care Rest as needed. Healthy habits may help you feel better. Steps include: Choose healthy foods including fruits and vegetables. Drink water throughout the day. Get plenty of sleep each night. If you smoke, try to quit. It may ease breathing. Avoid alcohol. Keep Others Healthy The virus can spread to others. Droplets are released every time you sneeze or cough. The droplets can get into the mouth, nose, or eyes of people near you and lead to infection. To lower the chances of spreading COVID-19 to others: Stay at home until your doctor has said it is safe to leave. If you tested positive this will mean staying isolated until both of the following are true: At least 7 days have passed since the start of illness. You are free of fever for at least 72 hours without the use of medicine. During this time: - Avoid public areas, events, or transportation. Do not return to work or school until your doctor has said it is safe to do so. - Call ahead if you need to go to a medical center. Let them know you may have COVID-19. It will help them guide you where to go. They may also ask you to wear a facemask when you come to the office. - If you call for emergency medical services, let them know you may have COVID- 19. While at home: - Try to avoid close contact with others. Stay about 6 feet away. - If possible, spend most of your time in a separate room from others. - Use a face mask if you will be in close contact with others such as sharing a room or vehicle. - Have someone wipe down common surfaces in the home. Use household metal furniture repairer every day on areas like doorknobs, counters, or sinks. - Cough or sneeze into a tissue. Throw the tissue away right after use. If a tissue is not available, cough or sneeze into your elbow. - Wash your hands often. Wash them after sneezing or coughing. Use soap and water and wash for at least 20 seconds. Alcohol based hand cell cleaner can be used if soap and water is not available. - Do not prepare food for others. Avoid sharing personal items like forks, spoons, or toothbrushes. - Avoid close contact with pets while you are sick. There is no evidence of the virus passing to pets. This is a safety step until more is known about this virus. Isolation can be frustrating. Social interaction can help. Keep in touch with friends and family through phone and tech options. You can still interact with others in your home, just keep a safe distance of about 6 feet. Follow-up: Your doctors office will check in with you to see if there are any changes in your health. You may be asked to keep track of symptoms to share with them. They will also let you know when you are clear to be in public again. Problems to Look Out For: Contact your doctor if your recovery is not going as you expect. Get emergency care if you have problems such as: - Trouble breathing - Nonstop chest pain or pressure - Changes in awareness, confusion, or problems waking - Lips or face have bluish color - Worsening of symptoms If you think you have an emergency, call for emergency medical services right away. As taken from [facility] [employer] Bumetanide (BUMETANIDE) 2 Mg Tablet 1 TAB PO DAILY, #30 TAB Prov: LUCIUS SWENSON DO 10/26/19 Justicifation of Admission Dx: Justifications for Admission: Justification of Admission Dx: N/A CHF: Sev. Electrolyte Abnormal LUCIUS SWENSON DO Oct 26, 2019 13:50
[2019-10-26 14:05] LABS: ALBUMIN 2.7 g/dL (3.4-5.0); ALBUMIN/GLOBULIN RATIO 0.6 (1.0-1.7); MAGNESIUM 2.1 mg/dL (1.8-2.4); TOTAL BILIRUBIN 0.9 mg/dL (0.2-1.0); TOTAL PROTEIN 7.6 g/dL (6.4-8.2)
--- NOTE | 2019-10-26 14:31 | EKG ---
[facility] [address] [place] [address] Test Date: 2019-10-26 Test Time: 12:49:55 Pat Name: ALLA JACK Department: Room: Gender: M [employer] Intern: : 1980 Requested By: LUCIUS SWENSON Order Number: [id number] Reading MD: Measurements Intervals [place] Rate: 95 P: 45 SD: 166 QRS: 94 QRSD: 98 T: 54 QT: 398 QTc: 504 Interpretive Statements SINUS RHYTHM LEFT ATRIAL ABNORMALITY RIGHTWARD AXIS PROLONGED QT ABNORMAL ECG RI6.02 No previous ECG available for comparison
[2019-10-26 14:41] LABS: BILIRUBIN,URINE NEGATIVE (NEG); CLARITY,URINE CLEAR; NITRITE,URINE NEGATIVE (NEG); PROTEIN,URINE 100 mg/dL (NEG-TRACE); UROBILINOGEN,URINE 0.2 mg/dL (0.2 mg/dL)
[2019-10-26 14:43] LABS: BARBITURATES NEG (NEG); BENZODIAZEPINES NEG (NEG); CANNABINOIDS NEG (NEG); COCAINE NEG (NEG); METHADONE NEG (NEG); OPIATES NEG (NEG); PHENCYCLIDINE NEG (NEG)
[2019-10-26 14:52] LABS: AMPHETAMINE/METHAMPHETAMINE NEG (NEG)
[2019-10-26 15:08] LABS: COLOR,URINE STRAW
[2019-10-26 15:09] LABS: BACTERIA,URINE 0 /HPF (0-FEW); RBC,URINE RARE /HPF (0-2); SQUAMOUS EPITHELIAL CELL,UR OCC /LPF; WBC,URINE 0 /HPF (0-4)
[2019-10-26] MEDS ORDERED: BUME2TAB3 PO (15:49)
[2019-10-26 15:51] VITALS: BP 120/72
--- NOTE | 2019-11-01 10:40 | NUR ---
IP: Informed pt of negative COVID results. Pt verbalized understanding.
== END 2019-10-26 16:08 | disposition home or self-care (01) ==
LOC: ER 12:29
DX: I50.9 Heart failure, unspecified (principal); Z20.828 Contact with and (suspected) exposure to other viral communicable diseases; R06.02 Shortness of breath; F41.9 Anxiety disorder, unspecified; F32.9 Major depressive disorder, single episode, unspecified; I25.2 Old myocardial infarction; F17.200 Nicotine dependence, unspecified, uncomplicated; F19.90 Other psychoactive substance use, unspecified, uncomplicated; F10.10 Alcohol abuse, uncomplicated; Z98.890 Other specified postprocedural states
CPT/HCPCS: 36415; 71045; 80053; 80307; 81001; 83690; 83735; 83880; 84484; 85025; 85610; 93005; 96374; 99285; J3490; U0003

== ENCOUNTER 2019-12-22 13:33 | Emergency (ER) | payer MEDICARE, MEDICAID ==
[~2019-12-22] VITALS: Ht 177.8 cm; Wt 81.8 kg
[~2019-12-22 13:33] MED LIST changes: +BUME2TAB3 PO; +FOLIC ACID PO; +FOLIC ACID20 MG PO; +GABA300C18 PO; +ISOS1TAB2 PO; +LOSA-73 PO; +SPIR25TA5 PO
--- NOTE | 2019-12-22 14:30 | PHYS DOC ---
Past Medical History Past Medical History: Anxiety, Bipolar, CAD, CHF, Depression, [place], Other Additional Past Medical Histor: KYLEE, drugs/METH USE, alcohol abuse, Past Surgical History: Other Additional Past Surgical Histo: heart stents Smoking Status: Current Every Day Smoker Alcohol Use: Heavy Drug Use: Methamphetamine Social History Narrative: USES OCCASIONALLY General Adult EDM: Chief Complaint: OTHER COMPLAINTS HPI: HPI: Patient is a 39 year old male who presents with complaints that he was discharged in the hospital yesterday and either was not given and/or lost his prescription for 2 mg Bumex twice daily. Patient states he is here today to obtain a prescription refill for his 2 mg Bumex twice daily. Patient states that he would like to have a dose here since he has missed his doses since being discharged from the hospital and then a prescription so that he can get his home medications filled. Patient states he has an appointment to see Dr. Lynn Go this coming Tuesday. Patient denies any new signs or symptoms or complaints. Patient denies fever chills nasal congestion cough shortness of breath chest pain abdominal pain or discomfort urinary problems back problems joint pains skin rashes headaches swelling of his glands any new depressions anxieties, denies homicidal or suicidal ideations. Review of Systems: Review of Systems: Constitutional: Denies fever or chills. Eyes: Denies change in visual acuity. HENT: Denies nasal congestion or sore throat. Respiratory: Denies cough or shortness of breath. Cardiovascular: Denies chest pain or edema. GI: Denies abdominal pain, nausea, vomiting, bloody stools or diarrhea. : Denies dysuria. Musculoskeletal: Denies back pain or joint pain. Integument: Denies rash. Neurologic: Denies headache, focal weakness or sensory changes. Lymphatic: Denies swollen glands. Psychiatric: Denies depression or anxiety. Heart Score: Risk Factors: Risk Factors: DM, Current or recent (<one month) smoker, HTN, HLP, family history of CAD, obesity. Risk Scores: Score 0 - 3: 2.5% MACE over next 6 weeks - Discharge Home Score 4 - 6: 20.3% MACE over next 6 weeks - Admit for Clinical Observation Score 7 - 10: 72.7% MACE over next 6 weeks - Early Invasive Strategies Allergies: Allergies: Allergies Coded Allergies Type Severity Reaction Last Updated Verified No Known Drug Allergies 08/01/16 No Physical Exam: PE: Constitutional: Well developed, well nourished, no acute distress, non-toxic appearance. HENT: Normocephalic, atraumatic, bilateral external ears normal, oropharynx moist, no oral exudates, nose normal. Eyes: PERRLA, EOMI, conjunctiva normal, no discharge. Neck: Normal range of motion, no tenderness, supple, no stridor. Cardiovascular:Heart rate regular rhythm, no murmur Lungs & Thorax: Bilateral breath sounds clear to auscultation Abdomen: Bowel sounds normal, soft, no tenderness, no masses, no pulsatile masses. Skin: Warm, dry, no erythema, no rash. Back: No tenderness, no CVA tenderness. Extremities: No tenderness, no cyanosis, no clubbing, ROM intact, no edema. Neurologic: Alert and oriented X 3, normal motor function, normal sensory function, no focal deficits noted. Psychologic: Affect normal, judgement normal, mood normal. Current Patient Data: Vital Signs: Vital Signs Date Time Temp Pulse Resp B/P (MAP) Pulse Ox O2 Delivery O2 Flow Rate FiO2 12/22/19 13:45 96.5 84 16 136/105 (115) 96 Room Air 96.5 EKG: EKG: [] Radiology/Procedures: Radiology/Procedures: [] Course & Med Decision Making: Course & Med Decision Making Pertinent Labs and Imaging studies reviewed. (See chart for details) 39-year-old male patient presented to the emergency department today requesting refill for his Bumex. Patient states he was discharged from [facility] yesterday morning and states he either lost and/or was not given his prescription for Bumex 2 mg twice a day. Patient states he is here today for prescription refill, patient denies any physical complaints or any new physical complaints. Patient presented in no apparent distress. Review of patient's history shows that patient is in fact on Bumex 2 mg twice daily. Patient vital signs were reviewed and retaken during my physical exam with an oral temp of 98.0, radial pulse of 80 which was confirmed by pulse oximetry rate of 80, pulse ox was 97% on room air, patient's respiratory rate was 16 regular rate and rhythm, blood pressure right upper extremity per noninvasive blood pressure machine was 135/81. Patient was given a refill prescription for 30-day supply of Bumex 2 mg twice daily, patient states he has an appointment to see his Dr. Lynn Go on Tuesday, patient encouraged to keep appointment with Dr. Go this coming Tuesday, take prescriptions as directed, return to the emergency department for other concerns. Patient gave verbal understanding of discharge instructions, had no further questions or concerns. Patient discharged home without incident. Dragon Disclaimer: Dragon Disclaimer: This electronic medical record was generated, in whole or in part, using a voice recognition dictation system. Departure Departure Impression: Primary Impression: Medication refill Additional Impression: CHF, chronic Qualified Codes: I50.9 - Heart failure, unspecified Disposition: DC HOME SELF CARE/HOMELESS Condition: GOOD Referrals: LYNN GO MD (PCP) Patient Instructions: Medication Refill, Emergency Department Additional Instructions: Your medication for Bumex 2 mg once a day has been refilled, take prescribed medications as directed, keep your appointment with Dr. Lynn Go this Tuesday, return to the emergency department for worsening symptoms or other concerns. Scripts Bumetanide (BUMETANIDE) 2 Mg Tablet 1 TAB PO BID, #60 TAB 0 Refills Prov: LUCIUS TABARES APRN 12/22/19 LUCIUS TABARES APRN Dec 22, 2019 14:30
[2019-12-22] MEDS ORDERED: BUMETANIDE 1 MG TABLET. PO STA (14:32)
[2019-12-22 14:43] VITALS: BP 130/89
[2019-12-22] MEDS ORDERED: BUME2TAB3 PO (14:54)
== END 2019-12-22 14:57 | disposition home or self-care (01) ==
LOC: ER 13:33
DX: Z76.0 Encounter for issue of repeat prescription (principal); I50.9 Heart failure, unspecified; F31.9 Bipolar disorder, unspecified; F17.200 Nicotine dependence, unspecified, uncomplicated; I25.2 Old myocardial infarction; I25.10 Atherosclerotic heart disease of native coronary artery without angina pectoris; Z95.5 Presence of coronary angioplasty implant and graft
CPT/HCPCS: 99283

== ENCOUNTER 2020-03-05 14:05 | Observation (INO) | payer MEDICARE, MEDICAID ==
[~2020-03-05] VITALS: Ht 175.3 cm; Wt 81.1 kg
[~2020-03-05 14:05] MED LIST changes: +HYDR-2868 PO; +METO50TA4 PO
[2020-03-05 15:18] LABS: BASO % 0 % (0-3); EOS # 0.1 x10^3/uL (0.0-0.7); EOS % 2 % (0-3); HEMATOCRIT 33.4 % (39.0-53.0); HEMOGLOBIN 10.8 g/dL (13.0-17.5); LYMPH % 20 % (24-48); MEAN CORPUSCULAR HEMOGLOBIN 28 pg (25-35); MEAN CORPUSCULAR HGB CONC 32 g/dL (31-37); MEAN CORPUSCULAR VOLUME 86 fL (79-100); MONO # 0.5 x10^3/uL (0.0-1.1); MONO % 10 % (0-9); NEUT # 3.4 x10^3/uL (1.8-7.7); NEUT % 68 % (31-73); PLATELET COUNT 368 x10^3/uL (140-400); RED BLOOD COUNT 3.88 x10^6/uL (4.30-5.70); RED CELL DISTRIBUTION WIDTH 22.3 % (11.5-14.5)
[2020-03-05 15:26] LABS: ALBUMIN 2.8 g/dL (3.4-5.0); ALBUMIN/GLOBULIN RATIO 0.5 (1.0-1.7); CALCIUM 9.1 mg/dL (8.5-10.1); CREATININE 1.8 mg/dL (0.7-1.3); GFR 50.8; MAGNESIUM 1.8 mg/dL (1.8-2.4); TOTAL BILIRUBIN 1.8 mg/dL (0.2-1.0)
[2020-03-05 15:31] LABS: POTASSIUM 2.9 mmol/L (3.5-5.1)
--- NOTE | 2020-03-05 15:33 | RAD ---
EXAM: CHEST 1 VIEW History: Chest pain COMPARISON: 01/12/2020 TECHNIQUE: Single portable radiograph of the chest FINDINGS: Moderate cardiomegaly. Faint scattered airspace opacities identified in the bilateral lung s. The costophrenic sulci are clear and well demarcated. IMPRESSION: 1. Faint scattered airspace opacities identified in the bilateral lungs could be atelectasis or infi ltrates. Follow-up to resolution. 2. Moderate cardiomegaly. Electronically signed by: Leobardo Weiss MD (03/05/2020 3:31 PM) [id number]
[2020-03-05] MEDS ORDERED: POTASSIUM CHLORIDE 20 MEQ TABLET.ER. PO ONE ×4 (15:45→23:00)
--- NOTE | 2020-03-05 16:04 | PHYS DOC ---
Past Medical History Past Medical History: Anxiety, Bipolar, CAD, CHF, Depression, Hypertension, SD, Other Additional Past Medical Histor: KYLEE, drugs/METH USE, alcohol abuse, HEARING VOICES Past Surgical History: Angioplasty, Other Additional Past Surgical Histo: heart stents Smoking Status: Current Every Day Smoker Alcohol Use: Heavy Drug Use: Methamphetamine General Adult EDM: Chief Complaint: CHEST PAIN HPI: HPI: 39-year-old male with history of nonischemic cardiomyopathy, LVEF 10 to 15%, coronary artery disease, substance abuse disorder and noncompliance with recurrent admissions for CHF, who presented to ER for evaluation of substernal chest pain associated with exertion and trouble breathing since yesterday. Patient feels like he is gaining fluid. Patient has history of CHF, he is on Bumex. Patient said the pain in his chest is pressure-like, like a cast sitting on his chest. Patient denies any cough or fever. Patient denies any recent travel or hospitalization. Review of Systems: Review of Systems: Constitutional: Denies fever or chills. [] Eyes: Denies change in visual acuity. [] HENT: Denies nasal congestion or sore throat. [] Respiratory: Denies cough , positive for shortness of breath. [] Cardiovascular: Positive for chest pain and edema. GI: Denies abdominal pain, nausea, vomiting, bloody stools or diarrhea. [] : Denies dysuria. [] Musculoskeletal: Denies back pain or joint pain. [] Integument: Denies rash. [] Neurologic: Denies headache, focal weakness or sensory changes. [] Endocrine: Denies polyuria or polydipsia. [] Lymphatic: Denies swollen glands. [] Psychiatric: Denies depression or anxiety. [] Heart Score: HEART Score for Chest Pain: HEART Score for Chest Pain Response (Comments) Value History Moderately Suspicious 1 ECG Nonspecific Repolarizatio 1 Age < 45 0 Risk Factors >3 Risk Factors or Hx CAD 2 Troponin < Normal Limit 0 Total 4 Risk Factors: Risk Factors: DM, Current or recent (<one month) smoker, HTN, HLP, family history of CAD, obesity. Risk Scores: Score 0 - 3: 2.5% MACE over next 6 weeks - Discharge Home Score 4 - 6: 20.3% MACE over next 6 weeks - Admit for Clinical Observation Score 7 - 10: 72.7% MACE over next 6 weeks - Early Invasive Strategies Current Medications: Current Medications Medications (Trade) Dose Ordered Sig/Wilbur Start Time Stop Time Status Last Admin Dose Admin Potassium Chloride (Klor-Con) 60 meq 1X ONCE 03/05/20 15:45 03/05/20 15:46 DC Allergies: Allergies: Allergies Coded Allergies Type Severity Reaction Last Updated Verified No Known Drug Allergies 08/01/16 No Physical Exam: PE: Constitutional: Well developed, well nourished, no acute distress, non-toxic appearance. [] HENT: Normocephalic, atraumatic, bilateral external ears normal, oropharynx moist, no oral exudates, nose normal. [] Eyes: PERRLA, EOMI, conjunctiva normal, no discharge. [] Neck: Normal range of motion, no tenderness, supple, no stridor. [] Cardiovascular:Heart rate regular rhythm, no murmur [] Lungs & Thorax: Bilateral breath sounds clear to auscultation [] Abdomen: Bowel sounds normal, soft, no tenderness, no masses, no pulsatile masses. [] Skin: Warm, dry, no erythema, no rash. [] Back: No tenderness, no CVA tenderness. [] Extremities: No tenderness, no cyanosis, no clubbing, ROM intact, bilateral legs pitting edema 2+ Neurologic: Alert and oriented X 3, normal motor function, normal sensory function, no focal deficits noted. [] Psychologic: Affect normal, judgement normal, mood normal. [] Current Patient Data: Labs: Laboratory Tests Test 03/05/20 15:00 White Blood Count 5.0 x10^3/uL (4.0-11.0) Red Blood Count 3.88 x10^6/uL (4.30-5.70) L Hemoglobin 10.8 g/dL (13.0-17.5) L Hematocrit 33.4 % (39.0-53.0) L Mean Corpuscular Volume 86 fL (79-100) Mean Corpuscular Hemoglobin 28 pg (25-35) Mean Corpuscular Hemoglobin Concent 32 g/dL (31-37) Red Cell Distribution Width 22.3 % (11.5-14.5) H Platelet Count 368 x10^3/uL (140-400) Neutrophils (%) (Auto) 68 % (31-73) Lymphocytes (%) (Auto) 20 % (24-48) L Monocytes (%) (Auto) 10 % (0-9) H Eosinophils (%) (Auto) 2 % (0-3) Basophils (%) (Auto) 0 % (0-3) Neutrophils # (Auto) 3.4 x10^3/uL (1.8-7.7) Lymphocytes # (Auto) 1.0 x10^3/uL (1.0-4.8) Monocytes # (Auto) 0.5 x10^3/uL (0.0-1.1) Eosinophils # (Auto) 0.1 x10^3/uL (0.0-0.7) Basophils # (Auto) 0.0 x10^3/uL (0.0-0.2) Platelet Estimate Pending Sodium Level 140 mmol/L (136-145) Potassium Level 2.9 mmol/L (3.5-5.1) *L Chloride Level 103 mmol/L (98-107) Carbon Dioxide Level 30 mmol/L (21-32) Anion Gap 7 (6-14) Blood Urea Nitrogen 23 mg/dL (8-26) Creatinine 1.8 mg/dL (0.7-1.3) H Estimated GFR (Cockcroft-Gault) 50.8 BUN/Creatinine Ratio 13 (6-20) Glucose Level 91 mg/dL (70-99) Calcium Level 9.1 mg/dL (8.5-10.1) Magnesium Level 1.8 mg/dL (1.8-2.4) Total Bilirubin 1.8 mg/dL (0.2-1.0) H Aspartate Amino Transferase (AST) 32 U/L (15-37) Alanine Aminotransferase (ALT) 40 U/L (16-63) Alkaline Phosphatase 227 U/L (46-116) H Troponin I Quantitative < 0.017 ng/mL (0.000-0.055) CM-Jwg-T-Type Natriuretic Peptide 3759 pg/mL (0-124) H Total Protein 8.0 g/dL (6.4-8.2) Albumin 2.8 g/dL (3.4-5.0) L Albumin/Globulin Ratio 0.5 (1.0-1.7) L Lipase 142 U/L (73-393) Laboratory Tests 03/05/20 15:00 Laboratory Tests 03/05/20 15:00 Vital Signs: Vital Signs Date Time Temp Pulse Resp B/P (MAP) Pulse Ox O2 Delivery O2 Flow Rate FiO2 03/05/20 14:26 97.3 97 20 133/93 (106) 98 Room Air 97.3 EKG: EKG: EKG was done at 1415, heart rate 100 bpm, sinus rhythm, no ST segment elevation. Radiology/Procedures: Radiology/Procedures: [facility] [address] [place] [address] IMAGING REPORT Signed PATIENT: ALLA JACK LACCOUNT: [id number] : 1980 LOCATION: ER AGE: 39 SEX: M EXAM STATUS: REG ER ORD. PHYSICIAN: NELL TA DO REASON: chest pain PROCEDURE: PORTABLE CHEST 1V EXAM: CHEST 1 VIEW History: Chest pain COMPARISON: 01/12/2020 TECHNIQUE: Single portable radiograph of the chest FINDINGS: Moderate cardiomegaly. Faint scattered airspace opacities identified in the bilateral lungs. The costophrenic sulci are clear and well demarcated. IMPRESSION: 1. Faint scattered airspace opacities identified in the bilateral lungs could be atelectasis or infiltrates. Follow-up to resolution. 2. Moderate cardiomegaly. Electronically signed by: Leobardo Weiss MD (03/05/2020 3:31 PM) [id number] DICTATED and SIGNED BY: LEOBARDO WEISS MD DATE: 03/05/20 [id number] 0 Course & Med Decision Making: Course & Med Decision Making Pertinent Labs and Imaging studies reviewed. (See chart for details) 39-year-old male with history of nonischemic cardiomyopathy, LVEF 10 to 15%, coronary artery disease, substance abuse disorder and noncompliance with recurrent admissions for CHF, presented to ER for evaluation of chest pain and trouble breathing. He was found to retaining fluid, low potassium. Due to his risk factor we will admit him for observation. Dragon Disclaimer: Dragon Disclaimer: This electronic medical record was generated, in whole or in part, using a voice recognition dictation system. Departure Departure Impression: Primary Impression: Chest pain Additional Impression: Hypokalemia Disposition: ADMITTED INPT THIS HOSP Admitting Physician: SIXTO (Dr. JACKMAN) Condition: STABLE Referrals: UNKNOWN PCP NAME (PCP) NELL TA DO Mar 05, 2020 16:04
[2020-03-05] MEDS ORDERED: MORPHINE SULFATE 4 MG/ML VIAL. IV ONE (16:45)
[2020-03-05] MEDS ORDERED: ASPIRIN CHEWABLE 81 MG TABLET. PO ONE (16:45)
--- NOTE | 2020-03-05 17:55 | PDOC1 ---
History and Physical Date of Service: DOS: DATE: 03/05/20 TIME: 17:48 Chief Complaint: Chief Complain: SOB and chest pressure History of Present Illness: HPI: 39-year-old male with history of nonischemic cardiomyopathy, LVEF 10 to 15%, coronary artery disease with stent placement, substance abuse disorder and noncompliance with recurrent admissions for CHF, who presented to ER for evaluation of substernal chest pain associated with exertion and trouble breathing since last night. Patient states that he started having shortness of breath while he was sleeping and he could not go back to sleep. He started feeling puffy in his cheeks and that is why he took about 3 mg of Bumex. He did not seem like he was diuresing well after this. Patient has history of CHF, he is on Bumex. Patient said the pain in his chest is pressure-like in the middle of his chest. Patient states that he also had a bowel movement and the pain did not go away. He thought it was reflux but he called the nurse hotline and they said to go to the emergency department to get evaluated for possible heart attack.. Patient denies any cough or fever. Patient denies any recent travel or hospitalization. Past Medical/Surgical History: PMH/PSH: Past Medical History: Anxiety, Bipolar, CAD, CHF, Depression, Hypertension, GA, KYLEE, drugs/METH USE, alcohol abuse, HEARING VOICES Past Surgical History: Angioplasty and heart stents Allergies: Allergies: Coded Allergies: No Known Drug Allergies (Unverified , 08/01/16) Family History: Family History: Reviewed with no relevant findings Social History: Social History: Smoking Status: Current Every Day Smoker Alcohol Use: Heavy Drug Use: Methamphetamine Current Medications: Current Medications Current Medications Potassium Chloride (Klor-Con) 60 meq 1X ONCE PO Last administered on 03/05/20at 16:30; Start 03/05/20 at 15:45; Stop 03/05/20 at 15:46; Status DC Morphine Sulfate (Morphine Sulfate) 4 mg 1X ONCE IV Last administered on 03/05/20at 17:16; Start 03/05/20 at 16:45; Stop 03/05/20 at 16:46; Status DC Aspirin (Aspirin Chewable) 324 mg 1X ONCE PO Last administered on 03/05/20at 17:17; Start 03/05/20 at 16:45; Stop 03/05/20 at 16:46; Status DC Active Scripts Active Isosorbide Mononitrate Er (Isosorbide Mononitrate) 30 Mg Tab.er.24h 1 Tab PO DAILY Hydralazine Hcl 25 Mg Tablet 25 Mg PO TID 30 Days Toprol XL (Metoprolol Succinate) 50 Mg Tab.er.24h 50 Mg PO DAILY 30 Days Paroxetine Hcl 40 Mg Tablet 1 Tab PO DAILY07 90 Days Tylenol (Acetaminophen) 325 Mg Tablet 650 Mg PO PRN Q6HRS PRN 30 Days Proair Hfa (Albuterol Sulfate) 8.5 Gm Hfa.aer.ad 2.5 Mg NEB PRN Q4HRS PRN 30 D ays Aspir 81 (Aspirin) 81 Mg Tablet.dr 1 Tab PO DAILY Reported [Folic Acid] 1 Mg PO DAILY Gabapentin 300 Mg Capsule 300 Mg PO TID Bumetanide 2 Mg Tablet 1 Tab PO BID ROS: Review of Systems Review of System REVIEW OF SYSTEMS: GENERAL: Denies weakness SKIN: No bruising, hair changes or rashes. EYES: No blurred, double or loss of vision. NOSE AND THROAT: No history of nosebleeds, hoarseness or sore throat. HEART: No history of palpitations, chest pain or shortness of breath on exertion. LUNGS: Denies cough, hemoptysis, wheezing or shortness of breath. GASTROINTESTINAL: Denies changes in appetite, nausea, vomiting, diarrhea or constipation. GENITOURINARY: No history of frequency, urgency, hesitancy or nocturia. NEUROLOGIC: Denies history of numbness, tingling, or tremor. PSYCHIATRIC: No history of panic, anxiety or depression. ENDOCRINE: No history of heat or cold intolerance, polyuria or polydipsia. EXTREMITIES: Denies joint pain, pain on walking or stiffness. Physical Exam: Vital Signs: Vital Signs Date Time Temp Pulse Resp B/P (MAP) Pulse Ox O2 Delivery O2 Flow Rate FiO2 03/05/20 17:16 16 6 Room Air 03/05/20 14:26 97.3 97 133/93 (106) 97.3 Physcial Exam: GEN: No apparent distress. Alert and oriented HEENT: Normal cephalic, atraumatic, external auditory canals are patent EYES: Extraocular muscles are intact, pupil are equally round and reactive to light and accommodation MUSCULOSKELETAL: Well developed , well nourished, good range of motion ENDOCRINE: No thyromegaly was palpated LYMPHATICS: No cervical chain or axillary nodes were noted HEMATOPOIETIC: No bruising NECK: Supple, no JVD, no thyromegaly was noted LUNGS: Clear to auscultation in all lung cabral without rhonchi or wheezing HEART: RRR, S!, S2 present. Peripheral pulses intact, no obvious murmurs noted ABDOMEN: Soft, nontender. Positive bowel sounds, no organomegaly, normal bowel sounds EXTREMITIES: Without clubbing, cyanosis, or edema. Pedal pulses intact. Negative Homans sign NEUROLOGIC: Normal speech and tone. A&O x 3, moves all extremities, no obvious focal deficits PSYCHIATRIC: Normal affect, normal mood. Stable SKIN: No ulcerations or rashes, good skin turgor, no jaundice VASCULAR: Good capillary refill, neurovascular bundle appears to be intact Labs: Labs: Laboratory Tests Test 03/05/20 15:00 White Blood Count 5.0 x10^3/uL (4.0-11.0) Red Blood Count 3.88 x10^6/uL (4.30-5.70) Hemoglobin 10.8 g/dL (13.0-17.5) Hematocrit 33.4 % (39.0-53.0) Mean Corpuscular Volume 86 fL (79-100) Mean Corpuscular Hemoglobin 28 pg (25-35) Mean Corpuscular Hemoglobin Concent 32 g/dL (31-37) Red Cell Distribution Width 22.3 % (11.5-14.5) Platelet Count 368 x10^3/uL (140-400) Neutrophils (%) (Auto) 68 % (31-73) Lymphocytes (%) (Auto) 20 % (24-48) Monocytes (%) (Auto) 10 % (0-9) Eosinophils (%) (Auto) 2 % (0-3) Basophils (%) (Auto) 0 % (0-3) Neutrophils # (Auto) 3.4 x10^3/uL (1.8-7.7) Lymphocytes # (Auto) 1.0 x10^3/uL (1.0-4.8) Monocytes # (Auto) 0.5 x10^3/uL (0.0-1.1) Eosinophils # (Auto) 0.1 x10^3/uL (0.0-0.7) Basophils # (Auto) 0.0 x10^3/uL (0.0-0.2) Sodium Level 140 mmol/L (136-145) Potassium Level 2.9 mmol/L (3.5-5.1) Chloride Level 103 mmol/L (98-107) Carbon Dioxide Level 30 mmol/L (21-32) Anion Gap 7 (6-14) Blood Urea Nitrogen 23 mg/dL (8-26) Creatinine 1.8 mg/dL (0.7-1.3) Estimated GFR (Cockcroft-Gault) 50.8 BUN/Creatinine Ratio 13 (6-20) Glucose Level 91 mg/dL (70-99) Calcium Level 9.1 mg/dL (8.5-10.1) Magnesium Level 1.8 mg/dL (1.8-2.4) Total Bilirubin 1.8 mg/dL (0.2-1.0) Aspartate Amino Transf (AST/SGOT) 32 U/L (15-37) Alanine Aminotransferase (ALT/SGPT) 40 U/L (16-63) Alkaline Phosphatase 227 U/L (46-116) Troponin I Quantitative < 0.017 ng/mL (0.000-0.055) DR-Ddx-N-Type Natriuretic Peptide 3759 pg/mL (0-124) Total Protein 8.0 g/dL (6.4-8.2) Albumin 2.8 g/dL (3.4-5.0) Albumin/Globulin Ratio 0.5 (1.0-1.7) Lipase 142 U/L (73-393) Laboratory Tests Test 03/05/20 15:00 White Blood Count 5.0 x10^3/uL (4.0-11.0) Red Blood Count 3.88 x10^6/uL (4.30-5.70) Hemoglobin 10.8 g/dL (13.0-17.5) Hematocrit 33.4 % (39.0-53.0) Mean Corpuscular Volume 86 fL (79-100) Mean Corpuscular Hemoglobin 28 pg (25-35) Mean Corpuscular Hemoglobin Concent 32 g/dL (31-37) Red Cell Distribution Width 22.3 % (11.5-14.5) Platelet Count 368 x10^3/uL (140-400) Neutrophils (%) (Auto) 68 % (31-73) Lymphocytes (%) (Auto) 20 % (24-48) Monocytes (%) (Auto) 10 % (0-9) Eosinophils (%) (Auto) 2 % (0-3) Basophils (%) (Auto) 0 % (0-3) Neutrophils # (Auto) 3.4 x10^3/uL (1.8-7.7) Lymphocytes # (Auto) 1.0 x10^3/uL (1.0-4.8) Monocytes # (Auto) 0.5 x10^3/uL (0.0-1.1) Eosinophils # (Auto) 0.1 x10^3/uL (0.0-0.7) Basophils # (Auto) 0.0 x10^3/uL (0.0-0.2) Sodium Level 140 mmol/L (136-145) Potassium Level 2.9 mmol/L (3.5-5.1) Chloride Level 103 mmol/L (98-107) Carbon Dioxide Level 30 mmol/L (21-32) Anion Gap 7 (6-14) Blood Urea Nitrogen 23 mg/dL (8-26) Creatinine 1.8 mg/dL (0.7-1.3) Estimated GFR (Cockcroft-Gault) 50.8 BUN/Creatinine Ratio 13 (6-20) Glucose Level 91 mg/dL (70-99) Calcium Level 9.1 mg/dL (8.5-10.1) Magnesium Level 1.8 mg/dL (1.8-2.4) Total Bilirubin 1.8 mg/dL (0.2-1.0) Aspartate Amino Transf (AST/SGOT) 32 U/L (15-37) Alanine Aminotransferase (ALT/SGPT) 40 U/L (16-63) Alkaline Phosphatase 227 U/L (46-116) Troponin I Quantitative < 0.017 ng/mL (0.000-0.055) JP-Nzy-B-Type Natriuretic Peptide 3759 pg/mL (0-124) Total Protein 8.0 g/dL (6.4-8.2) Albumin 2.8 g/dL (3.4-5.0) Albumin/Globulin Ratio 0.5 (1.0-1.7) Lipase 142 U/L (73-393) Images: Images CXR IMPRESSION: 1. Faint scattered airspace opacities identified in the bilateral lungs could be atelectasis or infiltrates. Follow-up to resolution. 2. Moderate cardiomegaly. Assessment/Plan Assessment/Plan Chest pain concerning for unstable angina/NSTEMI Acute on chronic CHF exacerbation with last known EF of 10 to 15% Acute hypokalemia Acute volume overload GARRET due to vasomotor nephropathy Elevated BNP Severe protein malnutrition Normocytic anemia Admit to medicine for further management Strict I's and O's We will attempt IV Bumex diuresis Troponin negative so far Continue aspirin, consider Plavix if intermediate risk will defer this to cardiology Cardiology consulted for predischarge stress testing or left heart cath, CHF management Continue nitroglycerin as needed for pain Continue beta-kalia if blood pressures allow Continue high intensity statins IV morphine as needed Consider Lovenox Maintain O2 sats between 88 to 95% Trend troponins Repeat EKG in the a.m. Continue telemetry monitoring Monitor for electrolyte abnormalities Avoid NSAIDs Lovenox for DVT prophylaxis Protonix GI prophylaxis ADA diet Full code Discussed with RN and SW Disposition inpatient management as above Surrogate decision maker is Luiza Angel Justifications for Admission Other Justification DIANA JACKMAN MD Mar 05, 2020 17:55
[2020-03-05 18:05] VITALS: BP 136/96
[2020-03-05] MEDS ORDERED: BUMETANIDE 1 MG/4 ML VIAL. IV ONE (18:30)
[2020-03-05 18:45] LABS: PLT ESTIMATE ADEQUATE (ADEQUATE)
[2020-03-05 18:46] LABS: ANISOCYTOSIS MOD; POLYCHROMASIA PRESENT
[2020-03-05 18:48] LABS: POIKILOCYTOSIS SLIGHT
[2020-03-05 18:49] LABS: TEAR DROP CELLS OCC
[2020-03-05 18:50] LABS: OVALOCYTES MOD
[2020-03-05] MEDS: NICOTINE 21MG PATCH. TD SCH (19:06)
[2020-03-05] MEDS ORDERED: ISOS1TAB2 PO (19:27)
[2020-03-05] MEDS ORDERED: BUME1TAB3 PO (19:42)
[2020-03-05] MEDS ORDERED: POTA10TA12 PO (19:42)
[2020-03-05] MEDS ORDERED: HYDR25TA PO (19:42)
[2020-03-05 19:50] VITALS: BP 121/85
[2020-03-05] MEDS ORDERED: NITROGLYCERIN SUBLINGUAL 0.4 MG BOTTLE OF 25. SL PRN (20:00)
[2020-03-05] MEDS ORDERED: ACETAMINOPHEN 325 MG TABLET. PO PRN (20:00)
[2020-03-05] MEDS ORDERED: DOCUSATE SODIUM 100 MG CAPSULE. PO PRN (20:00)
[2020-03-05] MEDS ORDERED: SENNOSIDES 8.6 MG TABLET PO PRN (20:00)
[2020-03-05] MEDS ORDERED: DEXTROSE 50% 25 GM / 50ML DISP.SYRIN. IV PRN (20:00)
[2020-03-05] MEDS ORDERED: ONDANSETRON PF 4 MG/2 ML VIAL. IVP PRN (20:00)
[2020-03-05] MEDS ORDERED: ALBUTEROL SULFATE 2.5 MG/3 ML NEBU. NEB PRN (20:00)
[2020-03-05] MEDS: GABAPENTIN 300 MG CAPSULE. PO SCH (21:01)
[2020-03-05] MEDS: ISOSORB DINIT PO SCH (21:01)
[2020-03-05] MEDS: hydrOXYzine 25 MG TABLET PO SCH (21:01)
[2020-03-05] MEDS: HYDRALAZINE HCL PO SCH (21:01)
[2020-03-05 22:35] VITALS: BP 122/88
[2020-03-06 03:25] VITALS: BP 116/82
--- NOTE | 2020-03-06 05:54 | NUR ---
Patient states that he would like to talk to someone about his drug abuse history and find more resources to stay clean. SW consulted for PAT team referal. Pt states that he last smoked meth and PCP last month. Pt also states that he smokes 1/2 pack of cigarettes & drinks approx 2 pints of vodka per week.
[2020-03-06 07:00] VITALS: BP 128/95
[2020-03-06 07:52] LABS: BASO # 0.1 x10^3/uL (0.0-0.2); BASO % 1 % (0-3); EOS # 0.1 x10^3/uL (0.0-0.7); EOS % 2 % (0-3); HEMATOCRIT 34.8 % (39.0-53.0); HEMOGLOBIN 10.8 g/dL (13.0-17.5); LYMPH # 1.1 x10^3/uL (1.0-4.8); LYMPH % 21 % (24-48); MEAN CORPUSCULAR HEMOGLOBIN 27 pg (25-35); MEAN CORPUSCULAR HGB CONC 31 g/dL (31-37); MEAN CORPUSCULAR VOLUME 87 fL (79-100); MONO # 0.4 x10^3/uL (0.0-1.1); MONO % 7 % (0-9); NEUT # 3.5 x10^3/uL (1.8-7.7); NEUT % 68 % (31-73); PLATELET COUNT 374 x10^3/uL (140-400); RED BLOOD COUNT 3.99 x10^6/uL (4.30-5.70); WHITE BLOOD COUNT 5.2 x10^3/uL (4.0-11.0)
[2020-03-06 08:19] LABS: CALCIUM 9.3 mg/dL (8.5-10.1); CREATININE 2.1 mg/dL (0.7-1.3); GFR 42.5; PHOSPHORUS 4.1 mg/dL (2.6-4.7)
[2020-03-06] MEDS: hydrOXYzine 25 MG TABLET PO SCH ×2 (09:00→13:31)
[2020-03-06] MEDS ORDERED: METOPROLOL SUCC 24HR ER 50 MG TAB.ER.24H. PO SCH (09:00)
[2020-03-06] MEDS: ISOSORB DINIT PO SCH ×2 (09:00→13:31)
[2020-03-06] MEDS: HYDRALAZINE HCL PO SCH ×2 (09:00→13:31)
[2020-03-06] MEDS ORDERED: ASPIRIN ENTERIC COATED 81 MG TABLET.DR. PO SCH (09:00)
[2020-03-06] MEDS ORDERED: ENOXAPARIN 30 MG/0.3 ML SYRINGE. SQ SCH (09:00)
[2020-03-06] MEDS ORDERED: FLU VACC QS 2020-21(6MOS+)/PF 0.5 ML SYRINGE. VAX IM ONE (09:00)
[2020-03-06] MEDS ORDERED: PARoxetine 20 MG TABLET PO SCH (09:00)
[2020-03-06] MEDS: NICOTINE 21MG PATCH. TD SCH (09:22)
[2020-03-06] MEDS: GABAPENTIN 300 MG CAPSULE. PO SCH ×2 (09:22→13:31)
[2020-03-06 09:56] LABS: AMPHETAMINE/METHAMPHETAMINE NEG (NEG); BARBITURATES NEG (NEG); BENZODIAZEPINES NEG (NEG); CANNABINOIDS NEG (NEG); COCAINE NEG (NEG); METHADONE NEG (NEG); OPIATES POS (NEG); PHENCYCLIDINE POS (NEG)
--- NOTE | 2020-03-06 10:42 | PDOC ---
[employer] PROGRESS NOTE Date of Service DOS: DATE: 03/06/20 TIME: 10:37 Chief Complaint Chief Complaint CHF exaccerbation and chest pain History of Present Illness History of Present Illness 03/06/2020 1. discussed pt care with RN 2. pt was seen and evaluated at bedside 3. chart reviewed 4. pt states that he feels was over-diuresed. Vitals/I&O Vitals/I&O: Vital Signs Date Time Temp Pulse Resp B/P (MAP) Pulse Ox O2 Delivery O2 Flow Rate FiO2 03/06/20 09:22 99 128/95 03/06/20 08:00 Room Air 03/06/20 07:00 97.8 20 99 97.8 I & O 03/05/20 03/05/20 03/06/20 15:00 23:00 07:00 Intake Total 700 ml Balance 700 ml Physical Exam General: Alert, Oriented X3, Cooperative Heart: Regular rate, No murmurs Lungs: Wheezing, Crackles Abdomen: Normal bowel sounds, No tenderness Extremities: Normal pulses, No tenderness/swelling Skin: No rashes, No breakdown Labs Labs: Laboratory Tests Test 03/05/20 15:00 03/05/20 20:08 03/05/20 22:50 03/06/20 07:09 White Blood Count 5.0 x10^3/uL (4.0-11.0) 5.2 x10^3/uL (4.0-11.0) Red Blood Count 3.88 x10^6/uL (4.30-5.70) 3.99 x10^6/uL (4.30-5.70) Hemoglobin 10.8 g/dL (13.0-17.5) 10.8 g/dL (13.0-17.5) Hematocrit 33.4 % (39.0-53.0) 34.8 % (39.0-53.0) Mean Corpuscular Volume 86 fL (79-100) 87 fL (79-100) Mean Corpuscular Hemoglobin 28 pg (25-35) 27 pg (25-35) Mean Corpuscular Hemoglobin Concent 32 g/dL (31-37) 31 g/dL (31-37) Red Cell Distribution Width 22.3 % (11.5-14.5) 23.0 % (11.5-14.5) Platelet Count 368 x10^3/uL (140-400) 374 x10^3/uL (140-400) Neutrophils (%) (Auto) 68 % (31-73) 68 % (31-73) Lymphocytes (%) (Auto) 20 % (24-48) 21 % (24-48) Monocytes (%) (Auto) 10 % (0-9) 7 % (0-9) Eosinophils (%) (Auto) 2 % (0-3) 2 % (0-3) Basophils (%) (Auto) 0 % (0-3) 1 % (0-3) Neutrophils # (Auto) 3.4 x10^3/uL (1.8-7.7) 3.5 x10^3/uL (1.8-7.7) Lymphocytes # (Auto) 1.0 x10^3/uL (1.0-4.8) 1.1 x10^3/uL (1.0-4.8) Monocytes # (Auto) 0.5 x10^3/uL (0.0-1.1) 0.4 x10^3/uL (0.0-1.1) Eosinophils # (Auto) 0.1 x10^3/uL (0.0-0.7) 0.1 x10^3/uL (0.0-0.7) Basophils # (Auto) 0.0 x10^3/uL (0.0-0.2) 0.1 x10^3/uL (0.0-0.2) Platelet Estimate Adequate (ADEQUATE) Polychromasia Present Poikilocytosis Slight Anisocytosis Mod Macrocytosis Slight Tear Drop Cells Occ Ovalocytes Mod Sodium Level 140 mmol/L (136-145) 141 mmol/L (136-145) Potassium Level 2.9 mmol/L (3.5-5.1) 4.0 mmol/L (3.5-5.1) Chloride Level 103 mmol/L (98-107) 105 mmol/L (98-107) Carbon Dioxide Level 30 mmol/L (21-32) 25 mmol/L (21-32) Anion Gap 7 (6-14) 11 (6-14) Blood Urea Nitrogen 23 mg/dL (8-26) 26 mg/dL (8-26) Creatinine 1.8 mg/dL (0.7-1.3) 2.1 mg/dL (0.7-1.3) Estimated GFR (Cockcroft-Gault) 50.8 42.5 BUN/Creatinine Ratio 13 (6-20) Glucose Level 91 mg/dL (70-99) 84 mg/dL (70-99) Calcium Level 9.1 mg/dL (8.5-10.1) 9.3 mg/dL (8.5-10.1) Magnesium Level 1.8 mg/dL (1.8-2.4) 2.0 mg/dL (1.8-2.4) Total Bilirubin 1.8 mg/dL (0.2-1.0) Aspartate Amino Transf (AST/SGOT) 32 U/L (15-37) Alanine Aminotransferase (ALT/SGPT) 40 U/L (16-63) Alkaline Phosphatase 227 U/L (46-116) Troponin I Quantitative < 0.017 ng/mL (0.000-0.055) 0.017 ng/mL (0.000-0.055) 0.017 ng/mL (0.000-0.055) WO-Kxa-Q-Type Natriuretic Peptide 3759 pg/mL (0-124) Total Protein 8.0 g/dL (6.4-8.2) Albumin 2.8 g/dL (3.4-5.0) Albumin/Globulin Ratio 0.5 (1.0-1.7) Lipase 142 U/L (73-393) Phosphorus Level 4.1 mg/dL (2.6-4.7) Test 03/06/20 09:30 Urine Opiates Screen Pos (NEG) Urine Methadone Screen Neg (NEG) Urine Barbiturates Neg (NEG) Urine Phencyclidine Screen Pos (NEG) Urine Amphetamine/Methamphetamine Neg (NEG) Urine Benzodiazepines Screen Neg (NEG) Urine Cocaine Screen Neg (NEG) Urine Cannabinoids Screen Neg (NEG) Urine Ethyl Alcohol Neg (NEG) Review of Systems Review of Systems: pt denies abdominal pain and change in mentation Assessment and Plan Assessmemt and Plan Problems Medical Problems: (1) Chest pain Status: Acute (2) Hypokalemia Status: Acute 03/06/2020 Plan: 1. discharge to home 2. appreciate input from subspecialist 3. follow up with PCP Comment Review of Relevant I have reviewed the following items nicolas (where applicable) has been applied. Medications: Current Medications Medications (Trade) Dose Ordered Sig/Wilbur Route PRN Reason Start Time Stop Time Status Last Admin Dose Admin Potassium Chloride (Klor-Con) 60 meq 1X ONCE PO 03/05/20 15:45 03/05/20 15:46 DC 03/05/20 16:30 Morphine Sulfate (Morphine Sulfate) 4 mg 1X ONCE IV 03/05/20 16:45 03/05/20 16:46 DC 03/05/20 17:16 Aspirin (Aspirin Chewable) 324 mg 1X ONCE PO 03/05/20 16:45 03/05/20 16:46 DC 03/05/20 17:17 Nicotine (Nicoderm Cq 21mg) 1 patch DAILY TD 03/05/20 19:00 03/06/20 09:22 Bumetanide (Bumex) 2 mg 1X ONCE IV 03/05/20 18:30 03/05/20 18:42 DC 03/05/20 19:07 Potassium Chloride (Klor-Con) 40 meq 1X ONCE PO 03/05/20 19:00 03/05/20 19:01 DC 03/05/20 19:06 Potassium Chloride (Klor-Con) 40 meq 1X ONCE PO 03/05/20 21:00 03/05/20 21:01 DC 03/05/20 21:01 Potassium Chloride (Klor-Con) 40 meq 1X ONCE PO 03/05/20 23:00 03/05/20 23:01 DC 03/05/20 23:24 Enoxaparin Sodium (Lovenox 30mg Syringe) 30 mg DAILY SQ 03/06/20 09:00 03/06/20 09:23 Albuterol Sulfate (Ventolin Neb Soln) 2.5 mg PRN Q4HRS PRN NEB SHORTNESS OF BREATH 03/05/20 20:00 03/05/20 20:49 Aspirin (Ecotrin) 81 mg DAILY PO 03/06/20 09:00 03/06/20 09:22 Gabapentin (Neurontin) 300 mg TID PO 03/05/20 21:00 03/06/20 09:22 Hydroxyzine HCl (Atarax) 25 mg TID PO 03/05/20 21:00 03/05/20 21:01 Metoprolol Succinate (Toprol Xl) 50 mg DAILY PO 03/06/20 09:00 03/06/20 09:22 Non-Formulary Medication (Isosorb Dinit/ Hydralazine Hcl (Bidil Tablet)) 2 tab TID PO 03/05/20 21:00 03/05/20 21:01 Paroxetine HCl (Paxil) 40 mg DAILY PO 03/06/20 09:00 03/06/20 09:22 Justifications for Admission Chest Pain Indications Respiratory Distress?: Yes Justification for admission: Patient's respiratory distress as indicated by (SOB/tachypnea/abnormal breathing pattern plus hypoxemia/AMS/other evidence of respiratory compromise such as pulmonary edema on chest x-ray) will need inpatient level of care. Serious Diagnosis?: Yes Justification for admission: Chest pain may be indicative of potentially serious diagnosis/diagnoses Please state condition(s) which will require inpatient level of care for further evaluation and management. Other Justification JOSE A CHAMBERLAIN III DO Mar 06, 2020 10:42
[2020-03-06 11:00] VITALS: BP 98/74
--- NOTE | 2020-03-06 11:45 | NUR ---
SS following for discharge planning. SS reviewed pt chart and discussed with pt RN. Pt is from home and is currently on room air. PAT team referral made for substance abuse issues. Eligio from PAT team met with pt and pt declined to discuss substance abuse issues. Pt denied SI and depression. Pt was encouraged to seek help and assistance if needed. All needed referrals are in place. Anticipate discharge to home today. SS will continue to follow for discharge planning.
--- NOTE | 2020-03-06 12:20 | PDOC2 ---
CORTNEY LUKE SURGERY CONSULTANT 03/06/20 1220: CARDIAC CONSULT DATE OF CONSULT Date of Consult DATE: 03/06/20 TIME: 11:48 REASON FOR CONSULT Reason for Consult: CHF, hypokalemia REFERRING PHYSICIAN Referring Physician: Hakan SOURCE Source: Chart review, Patient HISTORY OF PRESENT ILLNESS HISTORY OF PRESENT ILLNESS This is a 39 yo male admitted for complains of chest pain and SOA. Reports that he just started having SOA in the last 1-2 days and felt puffy on his face so he started taking more bumex. Also felt left chest pressure which is somewhat more reproducible with palpation. Presently he does not have SOA and feels better. 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 He was deemed not candidate for advance therapy nor outpt inotrope agent. He continues to smoke tobacco and still does binge with vodka and still drinks excessive amount of water at least 2.5 L per day. I asked him about recreational drugs and denies but came back positive for PCP. It is unclear if he is still taking his HIV meds or taking his regular cardiac meds. He is significant for noncompliance and reports that he might have missed his cardiology appointment 2 days ago. PAST MEDICAL HISTORY Past Medical History Cardiovascular: CAD, CHF (ICM/NICM), HTN, ND, Hyperlipidemia, Valve insufficiency moderate MR/TR Pulmonary: Asthma Psych: Anxiety, substance abuse Musculoskeletal: Other (none) Rheumatologic: No pertinent hx Infectious disease: No pertinent hx, Other (HIV) ENT: No pertinent hx Renal/: No pertinent hx Endocrine: No pertinent hx Dermatology: No pertinent hx PAST SURGICAL HISTORY Past Surgical History PCI/stent FAMILY HISTORY Family History Coronary Artery Disease (mother) SOCIAL HISTORY Social History Smoke: <1 pack per day ALCOHOL: heavy alcoholism Drugs: meth use, PCP Lives: with Family CURRENT MEDICATIONS CURRENT MEDICATIONS Current Medications Medications (Trade) Dose Ordered Sig/Wilbur Route PRN Reason Start Time Stop Time Status Last Admin Dose Admin Potassium Chloride (Klor-Con) 60 meq 1X ONCE PO 03/05/20 15:45 03/05/20 15:46 DC 03/05/20 16:30 Morphine Sulfate (Morphine Sulfate) 4 mg 1X ONCE IV 03/05/20 16:45 03/05/20 16:46 DC 03/05/20 17:16 Aspirin (Aspirin Chewable) 324 mg 1X ONCE PO 03/05/20 16:45 03/05/20 16:46 DC 03/05/20 17:17 Nicotine (Nicoderm Cq 21mg) 1 patch DAILY TD 03/05/20 19:00 03/06/20 09:22 Bumetanide (Bumex) 2 mg 1X ONCE IV 03/05/20 18:30 03/05/20 18:42 DC 03/05/20 19:07 Potassium Chloride (Klor-Con) 40 meq 1X ONCE PO 03/05/20 19:00 03/05/20 19:01 DC 03/05/20 19:06 Potassium Chloride (Klor-Con) 40 meq 1X ONCE PO 03/05/20 21:00 03/05/20 21:01 DC 03/05/20 21:01 Potassium Chloride (Klor-Con) 40 meq 1X ONCE PO 03/05/20 23:00 03/05/20 23:01 DC 03/05/20 23:24 Enoxaparin Sodium (Lovenox 30mg Syringe) 30 mg DAILY SQ 03/06/20 09:00 03/06/20 09:23 Albuterol Sulfate (Ventolin Neb Soln) 2.5 mg PRN Q4HRS PRN NEB SHORTNESS OF BREATH 03/05/20 20:00 03/05/20 20:49 Aspirin (Ecotrin) 81 mg DAILY PO 03/06/20 09:00 03/06/20 09:22 Gabapentin (Neurontin) 300 mg TID PO 03/05/20 21:00 03/06/20 09:22 Hydroxyzine HCl (Atarax) 25 mg TID PO 03/05/20 21:00 03/05/20 21:01 Metoprolol Succinate (Toprol Xl) 50 mg DAILY PO 03/06/20 09:00 03/06/20 09:22 Non-Formulary Medication (Isosorb Dinit/ Hydralazine Hcl (Bidil Tablet)) 2 tab TID PO 03/05/20 21:00 03/05/20 21:01 Paroxetine HCl (Paxil) 40 mg DAILY PO 03/06/20 09:00 03/06/20 09:22 ALLERGIES ALLERGIES: Coded Allergies: No Known Drug Allergies (Unverified , 08/01/16) ROS Review of System 14 point ROS evaluated with pertinent positives noted per HPI PHYSICAL EXAM General: Alert, Oriented X3, Cooperative, No acute distress HEENT: Atraumatic, Mucous membr. moist/pink Lungs: Other (diminished bases) Heart: Regular rate (SR), Other (distant heart sounds) Abdomen: Soft Extremities: No cyanosis, Other (trace edema) Skin: No breakdown, No significant lesion Neuro: Normal speech, Sensation intact Psych/Mental Status: Mental status NL, Mood NL MUSCULOSKELETAL: Osteoarthritic changes both hands VITALS/I&O VITALS/I&O: Vital Signs Date Time Temp Pulse Resp B/P (MAP) Pulse Ox O2 Delivery O2 Flow Rate FiO2 03/06/20 09:22 99 128/95 03/06/20 08:00 Room Air 03/06/20 07:00 97.8 20 99 97.8 I & O 03/05/20 03/05/20 03/06/20 15:00 23:00 07:00 Intake Total 700 ml Balance 700 ml LABS Lab: Laboratory Tests Test 03/05/20 15:00 03/05/20 20:08 03/05/20 22:50 03/06/20 07:09 White Blood Count 5.0 x10^3/uL (4.0-11.0) 5.2 x10^3/uL (4.0-11.0) Red Blood Count 3.88 x10^6/uL (4.30-5.70) L 3.99 x10^6/uL (4.30-5.70) L Hemoglobin 10.8 g/dL (13.0-17.5) L 10.8 g/dL (13.0-17.5) L Hematocrit 33.4 % (39.0-53.0) L 34.8 % (39.0-53.0) L Mean Corpuscular Volume 86 fL (79-100) 87 fL (79-100) Mean Corpuscular Hemoglobin 28 pg (25-35) 27 pg (25-35) Mean Corpuscular Hemoglobin Concent 32 g/dL (31-37) 31 g/dL (31-37) Red Cell Distribution Width 22.3 % (11.5-14.5) H 23.0 % (11.5-14.5) H Platelet Count 368 x10^3/uL (140-400) 374 x10^3/uL (140-400) Neutrophils (%) (Auto) 68 % (31-73) 68 % (31-73) Lymphocytes (%) (Auto) 20 % (24-48) L 21 % (24-48) L Monocytes (%) (Auto) 10 % (0-9) H 7 % (0-9) Eosinophils (%) (Auto) 2 % (0-3) 2 % (0-3) Basophils (%) (Auto) 0 % (0-3) 1 % (0-3) Neutrophils # (Auto) 3.4 x10^3/uL (1.8-7.7) 3.5 x10^3/uL (1.8-7.7) Lymphocytes # (Auto) 1.0 x10^3/uL (1.0-4.8) 1.1 x10^3/uL (1.0-4.8) Monocytes # (Auto) 0.5 x10^3/uL (0.0-1.1) 0.4 x10^3/uL (0.0-1.1) Eosinophils # (Auto) 0.1 x10^3/uL (0.0-0.7) 0.1 x10^3/uL (0.0-0.7) Basophils # (Auto) 0.0 x10^3/uL (0.0-0.2) 0.1 x10^3/uL (0.0-0.2) Platelet Estimate Adequate (ADEQUATE) Polychromasia Present Poikilocytosis Slight Anisocytosis Mod Macrocytosis Slight Tear Drop Cells Occ Ovalocytes Mod Sodium Level 140 mmol/L (136-145) 141 mmol/L (136-145) Potassium Level 2.9 mmol/L (3.5-5.1) *L 4.0 mmol/L (3.5-5.1) # Chloride Level 103 mmol/L (98-107) 105 mmol/L (98-107) Carbon Dioxide Level 30 mmol/L (21-32) 25 mmol/L (21-32) Anion Gap 7 (6-14) 11 (6-14) Blood Urea Nitrogen 23 mg/dL (8-26) 26 mg/dL (8-26) Creatinine 1.8 mg/dL (0.7-1.3) H 2.1 mg/dL (0.7-1.3) H Estimated GFR (Cockcroft-Gault) 50.8 42.5 BUN/Creatinine Ratio 13 (6-20) Glucose Level 91 mg/dL (70-99) 84 mg/dL (70-99) Calcium Level 9.1 mg/dL (8.5-10.1) 9.3 mg/dL (8.5-10.1) Magnesium Level 1.8 mg/dL (1.8-2.4) 2.0 mg/dL (1.8-2.4) Total Bilirubin 1.8 mg/dL (0.2-1.0) H Aspartate Amino Transferase (AST) 32 U/L (15-37) Alanine Aminotransferase (ALT) 40 U/L (16-63) Alkaline Phosphatase 227 U/L (46-116) H Troponin I Quantitative < 0.017 ng/mL (0.000-0.055) 0.017 ng/mL (0.000-0.055) 0.017 ng/mL (0.000-0.055) AC-Hfq-O-Type Natriuretic Peptide 3759 pg/mL (0-124) H Total Protein 8.0 g/dL (6.4-8.2) Albumin 2.8 g/dL (3.4-5.0) L Albumin/Globulin Ratio 0.5 (1.0-1.7) L Lipase 142 U/L (73-393) Phosphorus Level 4.1 mg/dL (2.6-4.7) Test 03/06/20 09:30 Urine Opiates Screen Pos (NEG) Urine Methadone Screen Neg (NEG) Urine Barbiturates Neg (NEG) Urine Phencyclidine Screen Pos (NEG) Urine Amphetamine/Methamphetamine Neg (NEG) Urine Benzodiazepines Screen Neg (NEG) Urine Cocaine Screen Neg (NEG) Urine Cannabinoids Screen Neg (NEG) Urine Ethyl Alcohol Neg (NEG) Laboratory Tests 03/05/20 15:00 03/06/20 07:09 Laboratory Tests 03/05/20 15:00 03/06/20 07:09 ASSESSMENT/PLAN ASSESSMENT/PLAN 1. Acute on chronic combined systolic and diastolic heart failure, secondary to noncompliance, overhydration 2. NICM/ICM; LVEF 10-15%. Patient would benefit from AICD implantation but this has been deferred secondary to his history of substance abuse/noncompliance 3. CAD s/p PCI/stent to LAD, presently complaining of atypical chest pain. AMI ruled out. 4. Hypertension; controlled 5. CKD3: within baseline 6. Polysubstance abuse and noncompliance. student services director following 7. Hx of HIV 8. Atypical chest pain: possible MSK, trops nml, EKG SR no acute changes 9. Severe noncompliance Recommendations Has been seen in [facility] and discharge on 02/07/2020 was there for CHF exacerbation. Deemed not a candidate for inotropes or any advance HF therapy. His risks for readmission is high given his continued treatment noncompliance, substance abuse with PCP, binge vodka and occasional meth use. He also drinks significant amount of water and also unclear if he is still taking his HIV meds. I discussed with him again adherence and compliance. Social service has been consulted. Continue secondary prevention measures Bumex therapy. Restart home bidil, ASA/statin and K replacement. Consider palliative care KORY HERNANDEZ MD 03/06/20 1711: CARDIAC CONSULT ASSESSMENT/PLAN ASSESSMENT/PLAN Patient seen and examined. Agree with DIGITAL STRATEGY MANAGER's assessment and plan. Acute on chronic systolic heart failure secondary to noncompliance, currently better compensated. Chest pain with atypical features and most probably musculoskeletal. CAD status clinically stable. LVEF 10 to 15%. Patient was deemed not a suitable candidate for advanced heart failure therapies by heart failure clinic secondary to his noncompliance with medications and substance abuse. Continue current medications including Bumex. Thank you for your consultation CORTNEY LUKE APRN Mar 06, 2020 12:20 KORY HERNANDEZ MD Mar 06, 2020 17:11
[2020-03-06] MEDS ORDERED: BUMETANIDE 1 MG TABLET. PO SCH (12:30)
[2020-03-06 15:00] VITALS: BP 97/76
[2020-03-06] MEDS ORDERED: POTASSIUM CHLORIDE 20 MEQ TABLET.ER. PO SCH (16:00)
--- NOTE | 2020-03-06 16:36 | NUR ---
Discharge Note: ALLA JACK Discharge instructions and discharge home medications reviewed with Patient and a copy given. All questions have been answered and understanding verbalized. Pt given resources for substance abuse assistance. Stable at time of DC with no complaints.
[2020-03-06] MEDS ORDERED: ATORVASTATIN CALCIUM 40 MG TABLET. PO SCH (21:00)
[2020-03-07] MEDS ORDERED: ENOXAPARIN 40 MG/0.4 ML SYRINGE. SQ SCH (09:00)
== END 2020-03-06 16:46 | disposition home or self-care (01) ==
LOC: ER 14:05 → 2 NORTH 16:42
PROVIDERS: ADMIT Internal Medicine; ATTEND Internal Medicine
DX: I13.0 Hypertensive heart and chronic kidney disease with heart failure and stage 1 through stage 4 chronic kidney disease, or unspecified chronic kidney disease (principal); I50.43 Acute on chronic combined systolic (congestive) and diastolic (congestive) heart failure; N18.30 Chronic kidney disease, stage 3 unspecified; E87.70 Fluid overload, unspecified; E87.6 Hypokalemia; D63.1 Anemia in chronic kidney disease; N17.9 Acute kidney failure, unspecified; E43 Unspecified severe protein-calorie malnutrition; E78.5 Hyperlipidemia, unspecified; F10.20 Alcohol dependence, uncomplicated; F31.9 Bipolar disorder, unspecified; I25.10 Atherosclerotic heart disease of native coronary artery without angina pectoris; F15.90 Other stimulant use, unspecified, uncomplicated; I42.8 Other cardiomyopathies; J45.909 Unspecified asthma, uncomplicated; I25.2 Old myocardial infarction; G47.33 Obstructive sleep apnea (adult) (pediatric); F17.210 Nicotine dependence, cigarettes, uncomplicated; F41.9 Anxiety disorder, unspecified; R74.8 Abnormal levels of other serum enzymes; Z91.19 Patient's noncompliance with other medical treatment and regimen; Z95.5 Presence of coronary angioplasty implant and graft; Z79.82 Long term (current) use of aspirin; Z91.14 Patient's other noncompliance with medication regimen
CPT/HCPCS: 36415; 71045; 80048; 80053; 80307; 83690; 83735; 83880; 84100; 84484; 85025; 93005; 94640; 96372; 96374; 96375; 97166; 97535; 99285; G0378; J1650; J2270; J3490; J7613; G0379

== ENCOUNTER 2020-04-04 17:10 | Inpatient (IN) | payer MEDICARE, MEDICAID ==
[~2020-04-04] VITALS: Ht 180.3 cm; Wt 87.3 kg
[~2020-04-04 17:10] MED LIST changes: +HYDR25TA PO; -ISOS30TA4 PO; +ISOS30TA68 PO; +LISI10TA16 PO; -LISI10TA2 PO; +POTA10TA12 PO
--- NOTE | 2020-04-04 18:05 | PHYS DOC ---
Past Medical History Past Medical History: Anxiety, Bipolar, CAD, CHF, Depression, Hypertension, RI, Other Additional Past Medical Histor: KYLEE, drugs/METH USE, alcohol abuse, HEARING VOICES Past Surgical History: Angioplasty, Other Additional Past Surgical Histo: heart stents Smoking Status: Current Every Day Smoker Alcohol Use: Heavy Drug Use: Methamphetamine General Adult EDM: Chief Complaint: SHORTNESS OF BREATH HPI: HPI: Patient is a 39 year old male who presents with states for last few weeks he has had a cough and is coughing up mucus with increased shortness of air. Patient unable to tell me what he is coughing up. Patient is running around the bed holding his left ribs. He states from all the coughing he thinks something popped out of place on his left ribs. Patient rates his pain at 10 out of 10 and states that sharp. Patient denies any chest pain, nausea, vomiting, diarrhea, headache, dizziness, syncope, fall. Patient has a history of drug abuse, alcoholism, hearing voices, hypertension, RI, angioplasty, heart stents, anxiety, bipolar, smoker, CAD, CHF, depression, KYLEE. Review of Systems: Review of Systems: Constitutional: Denies fever or chills. [] Eyes: Denies change in visual acuity. [] HENT: Denies nasal congestion or sore throat. [] Respiratory: +cough and +shortness of breath. [] Cardiovascular: Denies chest pain or edema. [] GI: Denies abdominal pain, nausea, vomiting, bloody stools or diarrhea. [] : Denies dysuria. [] Musculoskeletal: Denies back pain or joint pain. + Left rib pain [] Integument: Denies rash. [] Neurologic: Denies headache, focal weakness or sensory changes. [] Endocrine: Denies polyuria or polydipsia. [] Lymphatic: Denies swollen glands. [] Psychiatric: Denies depression or anxiety. [] Heart Score: HEART Score for Chest Pain: HEART Score for Chest Pain Response (Comments) Value History Slighlty/Non-Suspicious 0 ECG Nonspecific Repolarizatio 1 Age < 45 0 Risk Factors >3 Risk Factors or Hx CAD 2 Troponin < Normal Limit 0 Total 3 Risk Factors: Risk Factors: DM, Current or recent (<one month) smoker, HTN, HLP, family history of CAD, obesity. Risk Scores: Score 0 - 3: 2.5% MACE over next 6 weeks - Discharge Home Score 4 - 6: 20.3% MACE over next 6 weeks - Admit for Clinical Observation Score 7 - 10: 72.7% MACE over next 6 weeks - Early Invasive Strategies Allergies: Allergies: Allergies Coded Allergies Type Severity Reaction Last Updated Verified No Known Drug Allergies 08/01/16 No Physical Exam: PE: Constitutional: Well developed, well nourished, no acute distress, non-toxic appearance. [] HENT: Normocephalic, atraumatic, bilateral external ears normal, oropharynx moist, no oral exudates, nose normal. [] Eyes: PERRLA, EOMI, conjunctiva normal, no discharge. [] Neck: Normal range of motion, no tenderness, supple, no stridor. [] Cardiovascular:Heart rate regular rhythm, no murmur [] Lungs & Thorax: Bilateral upper breath sounds clear lower diminished to auscultation. Tenderness to left ribs [] Abdomen: Bowel sounds normal, soft, no tenderness, no masses, no pulsatile masses. [] Skin: Warm, dry, no erythema, no rash. [] Back: No tenderness, no CVA tenderness. [] Extremities: No tenderness, no cyanosis, no clubbing, ROM intact, no edema. [] Neurologic: Alert and oriented X 3, normal motor function, normal sensory func tion, no focal deficits noted. [] Psychologic: Affect normal, judgement normal, mood normal. [] EKG: EK and read by Kaushal Murrell as sinus tachycardia at 103 and no STEMI Radiology/Procedures: Radiology/Procedures: [] Impression: [facility] [address] [place], [place] [id number] IMAGING REPORT Signed PATIENT: ALLA JACK LACCOUNT: [id number] : 1980 LOCATION: ER AGE: 39 SEX: M EXAM STATUS: REG ER ORD. PHYSICIAN: DO GALE APRN REASON: SOA, LEFT RIBS PROCEDURE: RIBS BILAT & PA CXR 4+V Ribs bilateral with PA chest History: Pain PA view of the chest and dedicated views of the bilateral ribs were obtained. The January 12, 2020 chest x-rays available for comparison. The heart is markedly enlarged. There fractures of the right seventh and eighth ribs posterior laterally with callus formation. The remaining visualized osseous structures appear grossly intact. Impression: 1. Old rib fractures on the right. 2. Marked cardiomegaly. 3. Stable appearance of the chest. Electronically signed by: Patricia Summers III, MD (04/04/2020 7:29 PM) [facility] DICTATED and SIGNED BY: PATRICIA SUMMERS III, MD DATE: 04/04/20 [id number] 0 [facility] [address] [place] [address] IMAGING REPORT Signed PATIENT: ALLA JACK LACCOUNT: [id number] : 1980 LOCATION: ER AGE: 39 SEX: M EXAM STATUS: REG ER ORD. PHYSICIAN: DO GALE APRN REASON: PAIN PROCEDURE: CT ABDOMEN PELVIS WO CONTRAST Exam: CT of abdomen and pelvis without contrast INDICATION: Pain TECHNIQUE: Sequential axial images through the abdomen and pelvis obtained without IV contrast. Sagittal and coronal reformatted images were reconstructed from the axial data and reviewed. Comparisons: 01/12/2020 FINDINGS: Heart is enlarged. No pericardial effusion. Strandy opacity at the lung bases bilaterally. No pleural effusion. Evaluation of the solid organs limited secondary to noncontrast technique. Liver, spleen, pancreas, gallbladder and adrenals are unremarkable. No perinephric inflammation or hydronephrosis. No renal or ureteral calculi are identified. Bladder is distended and appears thin-walled. Prostate is not enlarged. Large and small bowel are unremarkable. Appendix is is not identified. No free intra-abdominal air or fluid. No obstruction. Abdominal aorta has a normal course and caliber. There is a small amount of free fluid in the pelvis. No obstruction. No free air. No enlarged abdominal lymph nodes are identified. No suspicious osseous lesions or acute fractures. IMPRESSION: 1. Small amount of free fluid noted within the abdomen, nonspecific could be reactive. 2. Hepatomegaly. Correlate with LFTs. 3. Severe cardiomegaly. Exposure: One or more of the following in the visualized dose reduction techniques were utilized for this examination: 1. Automated exposure control 2. Adjustment of the MA and/or KV according to patient size 3. Use of iterative of reconstructive technique Electronically signed by: Juan Fletcher MD (04/04/2020 8:02 PM) [facility] DICTATED and SIGNED BY: JUAN FLETCHER MD DATE: 04/04/20 [id number] 0 Course & Med Decision Making: Course & Med Decision Making Pertinent Labs and Imaging studies reviewed. (See chart for details) See HPI. Alert and oriented x4. Ambulatory with a steady gait. Tenderness to the left ribs. No subcutaneous emphysema or crepitus is felt. Lungs are clear in upper lobes and diminished in lower lobes. He is 90% on room air. No extremity edema. Patient is having severe pain to the left side. Xray shows: Impression: 1. Old rib fractures on the right. 2. Marked cardiomegaly. 3. Stable appearance of the chest. CT shows: IMPRESSION: 1. Small amount of free fluid noted within the abdomen, nonspecific could be reactive. 2. Hepatomegaly. Correlate with LFTs. 3. Severe cardiomegaly. With patient's history of RI and heart failure and his pain being so severe on the left side of his chest going to go ahead and admit him for least observation for heart failure. I talked to Dr. Rothman states he is in agreement with admission. [] Heron Disclaimer: Heron Disclaimer: This electronic medical record was generated, in whole or in part, using a voice recognition dictation system. Departure Departure Impression: Primary Impression: CHF exacerbation Qualified Codes: I50.9 - Heart failure, unspecified Disposition: ADMITTED INPT THIS HOSP Admitting Physician: SIXTO Condition: STABLE Referrals: UNKNOWN PCP NAME (PCP) DO GALE APRN Apr 04, 2020 18:05
[2020-04-04 18:43] LABS: CALCIUM 9.4 mg/dL (8.5-10.1); CREATININE 2.3 mg/dL (0.7-1.3); GFR 38.3; POTASSIUM 3.9 mmol/L (3.5-5.1)
[2020-04-04] MEDS ORDERED: fentaNYL PF VIAL 100 MCG/2 ML VIAL IVP ONE (18:45)
--- NOTE | 2020-04-04 18:45 | EKG ---
[facility] [address] [place] [address] Test Date: 2020-04-04 Test Time: 17:56:52 Pat Name: ALLA JACK Department: Room: Gender: M Frame Runner: : 1980 Requested By: DO GALE Order Number: [id number] Reading MD: Measurements Intervals [place] Rate: 103 P: 59 IA: 156 QRS: 107 QRSD: 102 T: 34 QT: 390 QTc: 513 Interpretive Statements SINUS TACHYCARDIA RIGHTWARD AXIS QRS(T) CONTOUR ABNORMALITY CONSIDER ANTEROLATERAL MYOCARDIAL DAMAGE POSSIBLY ABNORMAL ECG RI6.02 No previous ECG available for comparison
[2020-04-04 18:49] LABS: ALBUMIN 2.9 g/dL (3.4-5.0); ALBUMIN/GLOBULIN RATIO 0.5 (1.0-1.7); BASO % 1 % (0-3); EOS # 0.1 x10^3/uL (0.0-0.7); EOS % 2 % (0-3); HEMOGLOBIN 11.6 g/dL (13.0-17.5); LYMPH % 21 % (24-48); MEAN CORPUSCULAR HEMOGLOBIN 27 pg (25-35); MEAN CORPUSCULAR HGB CONC 31 g/dL (31-37); MEAN CORPUSCULAR VOLUME 86 fL (79-100); MONO # 0.3 x10^3/uL (0.0-1.1); MONO % 7 % (0-9); NEUT # 3.3 x10^3/uL (1.8-7.7); NEUT % 69 % (31-73); PLATELET COUNT 357 x10^3/uL (140-400); RED BLOOD COUNT 4.29 x10^6/uL (4.30-5.70); RED CELL DISTRIBUTION WIDTH 24.8 % (11.5-14.5); TOTAL BILIRUBIN 3.8 mg/dL (0.2-1.0); TOTAL PROTEIN 8.3 g/dL (6.4-8.2); WHITE BLOOD COUNT 4.8 x10^3/uL (4.0-11.0)
[2020-04-04] MEDS ORDERED: IV NORMAL SALINE 1000ML BAG 1,000 ML IV ONE (19:15)
--- NOTE | 2020-04-04 19:31 | RAD ---
Ribs bilateral with PA chest History: Pain PA view of the chest and dedicated views of the bilateral ribs were obtained. The January 12, 2020 chest x-rays available for comparison. The heart is markedly enlarged. There fractures of the right seventh and eighth ribs posterior latera lly with callus formation. The remaining visualized osseous structures appear grossly intact. Impression: 1. Old rib fractures on the right. 2. Marked cardiomegaly. 3. Stable appearance of the chest. Electronically signed by: Jabier Busby III, MD (04/04/2020 7:29 PM) [facility]
[2020-04-04 20:00] LABS: % BASOS 3 % (0-3); % EOS 1 % (0-5); % LYMPHS 28 % (24-48); % MONOS 7 % (0-10); % SEGS 61 % (35-66); PLT ESTIMATE ADEQUATE (ADEQUATE); POLYCHROMASIA PRESENT
[2020-04-04 20:01] LABS: ANISOCYTOSIS MOD; OVALOCYTES FEW; SPHEROCYTES FEW
[2020-04-04 20:02] LABS: TOXIC VACUOLATION PRESENT
[2020-04-04 20:02] LABS: BILIRUBIN,URINE NEGATIVE (NEG); CLARITY,URINE CLEAR; COLOR,URINE YELLOW; NITRITE,URINE NEGATIVE (NEG); PH,URINE 6.5 (<5.0-8.0); PROTEIN,URINE 100 mg/dL (NEG-TRACE)
[2020-04-04 20:03] LABS: TEAR DROP CELLS OCC
[2020-04-04 20:04] LABS: POIKILOCYTOSIS SLIGHT
--- NOTE | 2020-04-04 20:04 | RAD ---
Exam: CT of abdomen and pelvis without contrast INDICATION: Pain TECHNIQUE: Sequential axial images through the abdomen and pelvis obtained without IV contrast. Sagit piedad and coronal reformatted images were reconstructed from the axial data and reviewed. Comparisons: 01/12/2020 FINDINGS: Heart is enlarged. No pericardial effusion. Strandy opacity at the lung bases bilaterally. No pleural effusion. Evaluation of the solid organs limited secondary to noncontrast technique. Liver, spleen, pancreas, gallbladder and adrenals are unremarkable. No perinephric inflammation or hydronephrosis. No renal or ureteral calculi are identified. Bladder is distended and appears thin-walled. Prostate is not enlarged. Large and small bowel are unremarkable. Appendix is is not identified. No free intra-abdominal air or fluid. No obstruction. Abdominal aorta has a normal course and caliber. There is a small amount of free fluid in the pelvis. No obstruction. No free air. No enlarged abdominal lymph nodes are identified. No suspicious osseous lesions or acute fractures. IMPRESSION: 1. Small amount of free fluid noted within the abdomen, nonspecific could be reactive. 2. Hepatomegaly. Correlate with LFTs. 3. Severe cardiomegaly. Exposure: One or more of the following in the visualized dose reduction techniques were utilized for this examination: 1. Automated exposure control 2. Adjustment of the MA and/or KV according to patient size 3. Use of iterative of reconstructive technique Electronically signed by: Juan Hernandez MD (04/04/2020 8:02 PM) [facility]
[2020-04-04 20:06] LABS: TARGET CELLS FEW
[2020-04-04 20:09] LABS: BARBITURATES NEG (NEG); BENZODIAZEPINES NEG (NEG); CANNABINOIDS NEG (NEG); COCAINE NEG (NEG); METHADONE NEG (NEG); OPIATES NEG (NEG); PHENCYCLIDINE NEG (NEG)
[2020-04-04 20:11] LABS: AMPHETAMINE/METHAMPHETAMINE NEG (NEG)
[2020-04-04 20:14] LABS: BACTERIA,URINE FEW /HPF (0-FEW)
[2020-04-04 20:15] LABS: WBC,URINE OCC /HPF (0-4)
[2020-04-04 20:17] LABS: HYALINE CASTS, URINE OCCASIONAL /HPF
[2020-04-04] MEDS ORDERED: fentaNYL PF VIAL 100 MCG/2 ML VIAL IV PRN (20:45)
[2020-04-04] MEDS ORDERED: BUME2TAB3 PO (21:44)
[2020-04-04] MEDS ORDERED: TRAZ-118 PO (21:44)
[2020-04-04] MEDS ORDERED: ALBUTEROL SULFATE 2.5 MG/3 ML NEBU. NEB PRN (22:30)
[2020-04-04] MEDS ORDERED: ACETAMINOPHEN 325 MG TABLET. PO PRN (22:30)
[2020-04-04] MEDS ORDERED: guaiFENesin/CODEINE 100mg/10mg 5 ML LIQUID PO PRN (22:30)
[2020-04-04] MEDS: MORPHINE SULFATE 4 MG/ML VIAL. IVP PRN (22:51)
[2020-04-04] MEDS ORDERED: BUMETANIDE 1 MG TABLET. PO ONE (23:00)
[2020-04-04] MEDS ORDERED: traZODone 50 MG TABLET. PO ONE (23:00)
[2020-04-04] MEDS: SENNOSIDES 8.6 MG TABLET PO PRN (23:14)
[2020-04-04 23:28] VITALS: BP 127/93
[2020-04-05] VITALS (7 sets, daily range): BP systolic 94–149; BP diastolic 59–111
[2020-04-05] MEDS: MORPHINE SULFATE 4 MG/ML VIAL. IVP PRN ×3 (04:25→10:49)
[2020-04-05] MEDS ORDERED: BUME1TAB3 PO (08:51)
[2020-04-05] MEDS ORDERED: BUMETANIDE 1 MG TABLET. PO SCH (09:00)
[2020-04-05] MEDS: ASPIRIN ENTERIC COATED 81 MG TABLET.DR. PO SCH (09:17)
[2020-04-05] MEDS: BUMETANIDE 1 MG TABLET. PO SCH ×2 (09:17→15:00)
[2020-04-05] MEDS: POTASSIUM CHLORIDE 10 MEQ TABLET.ER. PO SCH ×2 (09:18→20:57)
[2020-04-05] MEDS: METOPROLOL SUCC 24HR ER 50 MG TAB.ER.24H. PO SCH (09:18)
[2020-04-05] MEDS: ISOSORBIDE DINITRATE 10 MG TABLET. PO SCH ×3 (09:18→20:55)
[2020-04-05] MEDS: hydrALAZINE 25 MG TABLET PO SCH ×3 (09:18→20:58)
[2020-04-05] MEDS: hydrOXYzine 25 MG TABLET PO SCH ×3 (09:19→20:58)
[2020-04-05] MEDS: GABAPENTIN 300 MG CAPSULE. PO SCH ×2 (09:19→20:57)
[2020-04-05] MEDS: PARoxetine 20 MG TABLET PO SCH (09:19)
[2020-04-05] MEDS: POLYETHYLENE GLYCOL 3350 17 GM PACKET. PO PRN (09:31)
[2020-04-05] MEDS: SENNOSIDES 8.6 MG TABLET PO PRN (09:31)
[2020-04-05] MEDS ORDERED: fentaNYL PF VIAL 100 MCG/2 ML VIAL IVP PRN (12:15)
--- NOTE | 2020-04-05 12:48 | HP ---
ADMIT DATE: 04/04/2020 CHIEF COMPLAINT: Shortness of breath. HISTORY OF PRESENT ILLNESS: The patient is a pleasant 39-year-old male who we admit weekly. I think he is noncompliant with the meds we sent him home with. He does have severe cardiomyopathy with 15% ejection fraction. Once again, chest x-ray showing cardiomegaly and vascular congestion. His labs shows elevated BNP of 5642. Clinically, appears to be in congestive heart failure. I discussed the case with ER physician. We are going to admit the patient and consult Cardiology. PAST MEDICAL HISTORY: Noncompliance, anxiety, bipolar, CAD, CHF, depression, hypertension, myocardial infarction, KYLEE, methamphetamine abuse, alcohol abuse, cardiac stents, tobacco abuse. ALLERGIES: None. FAMILY HISTORY: Diabetes. SOCIAL HISTORY: He drinks, smokes and takes drugs, I think. MEDICATIONS: Reviewed, please refer to the MRAD. REVIEW OF SYSTEMS: GENERAL: No history of weight change, weakness or fevers. SKIN: No bruising, hair changes or rashes. EYES: No blurred, double or loss of vision. NOSE AND THROAT: No history of nosebleeds, hoarseness or sore throat. HEART: No history of palpitations, chest pain. LUNGS: He complains of shortness of breath. GASTROINTESTINAL: Denies changes in appetite, nausea, vomiting, diarrhea or constipation. GENITOURINARY: No history of frequency, urgency, hesitancy or nocturia. NEUROLOGIC: Denies history of numbness, tingling, tremor or weakness. PSYCHIATRIC: ____. ENDOCRINE: No history of heat or cold intolerance, polyuria or polydipsia. EXTREMITIES: Denies muscle weakness, joint pain, pain on walking or stiffness. PHYSICAL EXAMINATION: VITALS: Within normal limits and are stable. GENERAL: He is anxious and depressed. HEENT: Normal cephalic atraumatic, external auditory canals are patent EYES: Extraocular muscles are intact, pupils are equally round and reactive to light and accommodation MUSCULOSKELETAL: Well developed, well nourished, good range of motion ENDOCRINE: No thyromegaly was palpated LYMPHATICS: No cervical chain or axillary nodes were noted HEMATOPOIETIC: No bruising NECK: Supple, no JVD, no thyromegaly was noted. LUNGS: He has bibasilar crackles. HEART: ____. ABDOMEN: Soft, nontender. Positive bowel sounds no organomegaly, normal bowel sounds. EXTREMITIES: Without any cyanosis, clubbing, or edema. Pedal pulses intact, Homans sign is negative. NEUROLOGIC: He is anxious and depressed.. PSYCHIATRIC: He is anxious and depressed. SKIN: No ulcerations or rashes, good skin turgor, no jaundice. VASCULAR: Good capillary refill, neurovascular bundle appears to be intact. LABORATORY DATA: Sodium is 135, hemoglobin 11.6. Drug screen currently negative. Urinalysis negative. D-dimer is 2.1. Rib x-rays show old rib fractures on the right and marked cardiomegaly. ASSESSMENT AND PLAN: Acute on chronic systolic and diastolic heart failure. The patient has been admitted. We are going to diurese him. Consult Cardiology. Home meds, DVT prophylaxis. Full code. P.r.n. pain meds, p.r.n. fentanyl, p.r.n. diphenhydramine, resume his home Bumex, O2 per nasal cannula. PROGNOSIS: Long-term poor. JOSE A CHAMBERLAIN DO DR: TYE/nikko JOB#: [id number] / [id number]
--- NOTE | 2020-04-05 13:50 | PDOC ---
CARDIOLOGY PROGRESS NOTE SUBJECTIVE: Pt. well known to our service. Presents with poor compliance and heart failure symptoms. Has endstage heart failure. OBJECTIVE: Vital Signs/I&O: Vital Signs Date Time Temp Pulse Resp B/P (MAP) Pulse Ox O2 Delivery O2 Flow Rate FiO2 04/05/20 11:19 18 Room Air 04/05/20 10:58 97.4 98 101/82 (88) 93 97.4 04/05/20 04:55 2.0 I & O 0 04/04/20 04/04/20 04/05/20 15:00 23:00 07:00 Intake Total 1000 ml 820 ml Output Total 300 ml Balance 1000 ml 520 ml Objective: He is somonolent but arousable. Trace LE edema. Distant heart sounds, diminished pulses. CURRENT MEDICATIONS: Current Medications Medications (Trade) Dose Ordered Sig/Wilbur Route PRN Reason Start Time Stop Time Status Last Admin Dose Admin Fentanyl Citrate (Fentanyl 2ml Vial) 50 mcg 1X ONCE IVP 04/04/20 18:45 04/04/20 18:46 DC 04/04/20 19:44 Sodium Chloride 1,000 ml @ 1,000 mls/hr 1X ONCE IV 04/04/20 19:15 04/04/20 20:14 DC 04/04/20 19:43 Aspirin (Ecotrin) 81 mg DAILY PO 04/05/20 09:00 04/05/20 09:17 Gabapentin (Neurontin) 300 mg BID PO 04/05/20 09:00 04/05/20 09:19 Hydroxyzine HCl (Atarax) 25 mg TID PO 04/05/20 09:00 04/05/20 09:19 Metoprolol Succinate (Toprol Xl) 50 mg DAILY PO 04/05/20 09:00 04/05/20 09:18 Potassium Chloride (Klor-Con) 30 meq BID PO 04/05/20 09:00 04/05/20 09:18 Bumetanide (Bumex) 3 mg BID92 PO 04/05/20 09:00 04/05/20 09:17 Isosorbide Dinitrate (Isordil) 40 mg TID PO 04/05/20 09:00 04/05/20 09:18 Paroxetine HCl (Paxil) 40 mg DAILY PO 04/05/20 09:00 04/05/20 09:19 Guaifenesin/ Codeine Phosphate (Robitussin Ac) 5 ml PRN Q4HRS PRN PO COUGH 04/04/20 22:30 04/04/20 22:51 Morphine Sulfate (Morphine Sulfate) 4 mg PRN Q2HR PRN IVP SEVERE PAIN 7-10 04/04/20 22:45 04/05/20 10:49 Bumetanide (Bumex) 3 mg 1X ONCE PO 04/04/20 23:00 04/04/20 23:01 DC 04/04/20 23:14 Trazodone HCl (Desyrel) 50 mg 1X ONCE PO 04/04/20 23:00 04/04/20 23:01 DC 04/04/20 23:14 Hydralazine HCl (Apresoline) 75 mg TID PO 04/05/20 09:00 04/05/20 09:18 Sennosides (Senna) 17.2 mg PRN BID PRN PO CONSTIPATION 04/04/20 23:15 04/05/20 09:31 Polyethylene Glycol (miraLAX PACKET) 17 gm PRN DAILY PRN PO CONSTIPATION 04/05/20 09:30 04/05/20 09:31 DIAGNOSTIC TESTING: labs reviewed Labs: Laboratory Tests 04/04/20 18:20 Laboratory Tests Test 04/04/20 18:20 04/04/20 19:44 White Blood Count 4.8 x10^3/uL (4.0-11.0) Red Blood Count 4.29 x10^6/uL (4.30-5.70) L Hemoglobin 11.6 g/dL (13.0-17.5) L Hematocrit 37.0 % (39.0-53.0) L Mean Corpuscular Volume 86 fL (79-100) Mean Corpuscular Hemoglobin 27 pg (25-35) Mean Corpuscular Hemoglobin Concent 31 g/dL (31-37) Red Cell Distribution Width 24.8 % (11.5-14.5) H Platelet Count 357 x10^3/uL (140-400) Neutrophils (%) (Auto) 69 % (31-73) Lymphocytes (%) (Auto) 21 % (24-48) L Monocytes (%) (Auto) 7 % (0-9) Eosinophils (%) (Auto) 2 % (0-3) Basophils (%) (Auto) 1 % (0-3) Neutrophils # (Auto) 3.3 x10^3/uL (1.8-7.7) Lymphocytes # (Auto) 1.0 x10^3/uL (1.0-4.8) Monocytes # (Auto) 0.3 x10^3/uL (0.0-1.1) Eosinophils # (Auto) 0.1 x10^3/uL (0.0-0.7) Basophils # (Auto) 0.0 x10^3/uL (0.0-0.2) Segmented Neutrophils % 61 % (35-66) Lymphocytes % 28 % (24-48) Monocytes % 7 % (0-10) Eosinophils % 1 % (0-5) Basophils % 3 % (0-3) Toxic Vacuolation Present Platelet Estimate Adequate (ADEQUATE) Large Platelets Present Giant Platelets Polychromasia Present Poikilocytosis Slight Anisocytosis Mod Spherocytes Few Target Cells Few Tear Drop Cells Occ Ovalocytes Few D-Dimer (Laurita) 2.11 ug/mlFEU (0.00-0.50) H Sodium Level 135 mmol/L (136-145) L Potassium Level 3.9 mmol/L (3.5-5.1) Chloride Level 100 mmol/L (98-107) Carbon Dioxide Level 25 mmol/L (21-32) Anion Gap 10 (6-14) Blood Urea Nitrogen 30 mg/dL (8-26) H Creatinine 2.3 mg/dL (0.7-1.3) H Estimated GFR (Cockcroft-Gault) 38.3 BUN/Creatinine Ratio 13 (6-20) Glucose Level 146 mg/dL (70-99) H Calcium Level 9.4 mg/dL (8.5-10.1) Total Bilirubin 3.8 mg/dL (0.2-1.0) H Aspartate Amino Transf (AST/SGOT) 34 U/L (15-37) Alkaline Phosphatase 231 U/L (46-116) H Total Protein 8.3 g/dL (6.4-8.2) H Albumin 2.9 g/dL (3.4-5.0) L Albumin/Globulin Ratio 0.5 (1.0-1.7) L Lipase 111 U/L (73-393) Ethyl Alcohol Level < 10 mg/dL (0-10) Urine Collection Type Void Urine Color Yellow Urine Clarity Clear Urine pH 6.5 (<5.0-8.0) Urine Specific Ector 1.010 (1.000-1.030) Urine Protein 100 mg/dL (NEG-TRACE) Urine Glucose (UA) Negative mg/dL (NEG) Urine Ketones (Stick) Negative mg/dL (NEG) Urine Blood Negative (NEG) Urine Nitrite Negative (NEG) Urine Bilirubin Negative (NEG) Urine Urobilinogen Dipstick 1.0 mg/dL (0.2 mg/dL) Urine Leukocyte Esterase Negative (NEG) Urine RBC 3-5 /HPF (0-2) Urine WBC Occ /HPF (0-4) Urine Squamous Epithelial Cells Occ /LPF Urine Bacteria Few /HPF (0-FEW) Urine Hyaline Casts Occasional /HPF Urine Mucus Slight /LPF Urine Opiates Screen Neg (NEG) Urine Methadone Screen Neg (NEG) Urine Barbiturates Neg (NEG) Urine Phencyclidine Screen Neg (NEG) Urine Amphetamine/Methamphetamine Neg (NEG) Urine Benzodiazepines Screen Neg (NEG) Urine Cocaine Screen Neg (NEG) Urine Cannabinoids Screen Neg (NEG) Urine Ethyl Alcohol Neg (NEG) ASSESSMENT: 1. Chronic systolic HF 2. NICM/ICM; LVEF 10-15%. Patient would benefit from AICD implantation but this has been deferred secondary to his history of substance abuse/noncompliance 3. CAD s/p PCI/stent to LAD, presently complaining of atypical chest pain. AMI ruled out. 4. Hypertension; controlled 5. CKD3: within baseline 6. Polysubstance abuse and noncompliance. 7. Hx of HIV 8. Atypical chest pain: possible MSK, trops nml, EKG SR no acute changes 9. Severe noncompliance PLAN: 1. Continue current home meds. Supportive care. No further CV testing needed. Thanks Justicifation of Admission Dx: Justifications for Admission: Justification of Admission Dx: Yes CHF: Sev. Electrolyte Abnormal MAT CADET MD Apr 05, 2020 13:50
[2020-04-05] MEDS: diphenhydrAMINE 50 MG/ML VIAL IVP PRN (15:07)
[2020-04-05] MEDS: traZODone 50 MG TABLET. PO SCH (20:57)
[2020-04-06 03:30] VITALS: BP 90/71
[2020-04-06] MEDS: MORPHINE SULFATE 4 MG/ML VIAL. IVP PRN ×5 (03:43→22:42)
[2020-04-06 07:00] VITALS: BP 109/86
[2020-04-06] MEDS: BUMETANIDE 1 MG TABLET. PO SCH ×2 (08:35→14:11)
[2020-04-06] MEDS: hydrALAZINE 25 MG TABLET PO SCH ×3 (08:36→21:10)
[2020-04-06] MEDS: ASPIRIN ENTERIC COATED 81 MG TABLET.DR. PO SCH (08:36)
[2020-04-06] MEDS: PARoxetine 20 MG TABLET PO SCH (08:36)
[2020-04-06] MEDS: ISOSORBIDE DINITRATE 10 MG TABLET. PO SCH ×3 (08:36→21:11)
[2020-04-06] MEDS: GABAPENTIN 300 MG CAPSULE. PO SCH ×2 (08:37→21:09)
[2020-04-06] MEDS: POTASSIUM CHLORIDE 10 MEQ TABLET.ER. PO SCH ×2 (08:37→21:10)
[2020-04-06] MEDS: METOPROLOL SUCC 24HR ER 50 MG TAB.ER.24H. PO SCH (08:37)
[2020-04-06] MEDS: hydrOXYzine 25 MG TABLET PO SCH ×3 (08:38→21:11)
--- NOTE | 2020-04-06 11:10 | PDOC ---
[facility] PROGRESS NOTE Date of Service DOS: DATE: 04/06/20 TIME: 11:10 Chief Complaint Chief Complaint CHIEF COMPLAINT: Shortness of breath. History of Present Illness History of Present Illness 04/06 - Pt is somnolent, but arousable. Complains of dry mouth, discussed fluid, and salt restriction. Pt has noticed gain of weight, abd distention, LE edema prior to arrival which has since resolved. Pt states that overall he feels better. The patient is a pleasant 39-year-old male who we admit weekly. I think he is noncompliant with the meds we sent him home with. He does have severe cardiomyopathy with 15% ejection fraction. Once again, chest x-ray showing cardiomegaly and vascular congestion. His labs shows elevated BNP of 5642. Clinically, appears to be in congestive heart failure. I discussed the case with ER physician. We are going to admit the patient and consult Cardiology. Vitals/I&O Vitals/I&O: Vital Signs Date Time Temp Pulse Resp B/P (MAP) Pulse Ox O2 Delivery O2 Flow Rate FiO2 04/06/20 11:05 91 Room Air 04/06/20 09:28 2.0 04/06/20 08:36 75 109/86 04/06/20 07:00 16 04/06/20 03:30 97.1 97.1 I & O 04/05/20 04/05/20 04/06/20 15:00 23:00 07:00 Intake Total 120 ml 1360 ml Output Total 850 ml Balance 120 ml -850 ml 1360 ml Physical Exam Physical Exam: Gen : Sleepy, drifts in and out of arousal. Appears to be SOB with speech. No LE edema noted bilaterally. General: Oriented X3, Cooperative, No acute distress Lungs: Wheezing, Crackles Abdomen: Soft Extremities: No clubbing, No cyanosis, No edema, No tenderness/swelling Skin: No rashes Review of Systems Review of Systems: Pt complains of dry mouth Assessment and Plan Assessmemt and Plan Assessment Chronic systolic HF NICM/ICM; LVEF 10-15%. Patient would benefit from AICD implantation but this has been deferred secondary to his history of substance abuse/noncompliance CAD s/p PCI/stent to LAD, presently complaining of atypical chest pain. AMI ruled out. Hypertension; controlled CKD3: within baseline Polysubstance abuse and noncompliance. Hx of HIV Atypical chest pain: possible MSK, trops nml, EKG SR no acute changes Severe noncompliance Plan Con't diuresis DVT prophylaxis Home meds Trend Labs Appreciate subspecialist input Salt, fluid restriction Possible abd binder Comment Review of Relevant I have reviewed the following items nicolas (where applicable) has been applied. Medications: Current Medications Medications (Trade) Dose Ordered Sig/Wilbur Route PRN Reason Start Time Stop Time Status Last Admin Dose Admin Trazodone HCl (Desyrel) 50 mg HS PO 04/05/20 21:00 04/05/20 20:57 Diphenhydramine HCl (Benadryl) 50 mg PRN Q6HRS PRN IVP ITCHING 04/05/20 11:15 04/05/20 15:07 Justifications for Admission Other Justification JOSE A CHAMBERLAIN III DO Apr 06, 2020 11:10 am
[2020-04-06 15:00] VITALS: BP 82/62
[2020-04-06] MEDS: diphenhydrAMINE 50 MG/ML VIAL IVP PRN ×2 (18:18→22:43)
[2020-04-06 19:50] VITALS: BP 104/79
[2020-04-06] MEDS: traZODone 50 MG TABLET. PO SCH (21:11)
[2020-04-06] MEDS: SENNOSIDES 8.6 MG TABLET PO PRN (21:11)
[2020-04-06 22:45] VITALS: BP 119/84
[2020-04-07 03:12] VITALS: BP 91/68
--- NOTE | 2020-04-07 03:51 | NUR ---
Pt is refusing o2 at 2L overnight for KYLEE, will not leave it in his nose. Education done, pt verbalized understanding.
[2020-04-07 07:00] VITALS: BP 96/71
[2020-04-07] MEDS: PARoxetine 20 MG TABLET PO SCH (10:25)
[2020-04-07] MEDS: GABAPENTIN 300 MG CAPSULE. PO SCH ×2 (10:26→20:38)
[2020-04-07] MEDS: hydrOXYzine 25 MG TABLET PO SCH ×3 (10:26→20:38)
[2020-04-07] MEDS: ASPIRIN ENTERIC COATED 81 MG TABLET.DR. PO SCH (10:26)
[2020-04-07] MEDS: BUMETANIDE 1 MG TABLET. PO SCH ×2 (10:26→14:00)
[2020-04-07] MEDS: METOPROLOL SUCC 24HR ER 50 MG TAB.ER.24H. PO SCH (10:29)
[2020-04-07] MEDS: POTASSIUM CHLORIDE 10 MEQ TABLET.ER. PO SCH ×2 (10:30→20:34)
[2020-04-07] MEDS: POLYETHYLENE GLYCOL 3350 17 GM PACKET. PO PRN (10:30)
[2020-04-07 11:01] VITALS: BP 104/74
[2020-04-07] MEDS: hydrALAZINE 25 MG TABLET PO SCH ×3 (11:43→20:39)
[2020-04-07] MEDS: ISOSORBIDE DINITRATE 10 MG TABLET. PO SCH ×3 (11:43→20:37)
[2020-04-07] MEDS: MORPHINE SULFATE 4 MG/ML VIAL. IVP PRN ×2 (12:55→20:40)
--- NOTE | 2020-04-07 14:19 | NUR ---
SS following for discharge planning. SS reviewed pt chart and discussed with pt RN. Pt is from home and is currently on room air. Per RN, pt is ad ekaterina. No PT needs. Discharge plan is to home when medically ready. SS will continue to follow for discharge planning.
[2020-04-07 14:38] VITALS: BP 84/54
--- NOTE | 2020-04-07 17:00 | NUR ---
Pt advised that he had discharge orders and was able to go home, got very agitated and insisted that he was "not in the right state to go home". Attempted to throw self on bed. Dr. Michaels notified.
[2020-04-07] MEDS ORDERED: BUME1TAB3 PO (17:11)
[2020-04-07] MEDS ORDERED: oxyCODONE/APAP 5/325 1 TAB TABLET PO PRN (17:15)
--- NOTE | 2020-04-07 17:16 | PDOC ---
[facility] PROGRESS NOTE Date of Service DOS: DATE: 04/07/20 TIME: 17:07 Chief Complaint Chief Complaint CHIEF COMPLAINT: Shortness of breath. History of Present Illness History of Present Illness 04/07: Patienty seen and evaluated. Feeling better today, s/p diuresis. No cardiac work-up planned. 04/06 - Pt is somnolent, but arousable. Complains of dry mouth, discussed fluid, and salt restriction. Pt has noticed gain of weight, abd distention, LE edema prior to arrival which has since resolved. Pt states that overall he feels better. The patient is a pleasant 39-year-old male who we admit weekly. I think he is noncompliant with the meds we sent him home with. He does have severe cardiomyopathy with 15% ejection fraction. Once again, chest x-ray showing cardiomegaly and vascular congestion. His labs shows elevated BNP of 5642. Clinically, appears to be in congestive heart failure. I discussed the case with ER physician. We are going to admit the patient and consult Cardiology. Vitals/I&O Vitals/I&O: Vital Signs Date Time Temp Pulse Resp B/P (MAP) Pulse Ox O2 Delivery O2 Flow Rate FiO2 04/07/20 14:40 87 Room Air 2.0 04/07/20 14:38 98.0 75 84/54 (64) 98.0 04/07/20 12:55 20 I & O 0 04/06/20 04/06/20 04/07/20 15:00 23:00 07:00 Intake Total 240 ml 440 ml Output Total 125 ml Balance 240 ml -125 ml 440 ml Physical Exam Physical Exam: Gen : Sleepy, drifts in and out of arousal. Appears to be SOB with speech. No LE edema noted bilaterally. General: Oriented X3, Cooperative, No acute distress Lungs: Wheezing, Crackles Abdomen: Soft Extremities: No clubbing, No cyanosis, No edema, No tenderness/swelling Skin: No rashes Comment Review of Relevant I have reviewed the following items nicolas (where applicable) has been applied. Justifications for Admission Other Justification BRITTNEY JOHN MD Apr 07, 2020 17:16
--- NOTE | 2020-04-07 17:20 | PDOC3 ---
Discharge Summary Visit Information Date of Admission: Apr 04, 2020 Date of Discharge: Apr 07, 2020 Brief Hospital Course Allergies Allergies Coded Allergies Type Severity Reaction Last Updated Verified No Known Drug Allergies 08/01/16 No Vital Signs Vital Signs Date Time Temp Pulse Resp B/P (MAP) Pulse Ox O2 Delivery O2 Flow Rate FiO2 04/07/20 14:40 87 Room Air 2.0 04/07/20 14:38 98.0 75 84/54 (64) 98.0 04/07/20 12:55 20 Brief Hospital Course Mr. Perera is a 39 old male who presented with CHF exacerbation. Consultation was placed to cardiology. He received aggressive diuresis. No cardiac intervention was planned. He was stable to discharge on Bumex 3 mg bid with outpatient cardiology follow-up. Discharge Information Condition at Discharge: Stable Follow Up: Weeks Disposition/Orders: D/C to Home Scheduled Aspirin (Aspir 81) 81 Mg Tablet.dr, 1 TAB PO DAILY, #30 Ref 5 Prescribed by: VINEET LIZAMA on 08/04/16 0805 Last Action: Continued on 04/04/202228 by Goldie Pedroza Bumetanide (Bumetanide) 1 Mg Tablet, 3 MG PO BID92 for Heart Failure, #60 Ref 1 Prescribed by: BRITTNEY JOHN MD on 04/07/201710 Gabapentin (Gabapentin) 300 Mg Capsule, 300 MG PO TID for NEUROGENIC PAIN, (Reported) Entered as Reported by: ANGELA ALMEIDA on 12/14/19 1732 Last Action: Continued on 04/04/202228 by Goldie Pedroza Hydroxyzine Hcl (Hydroxyzine Hcl) 25 Mg Tablet, 25 MG PO TID for , (Reported) Entered as Reported by: REESE WESLEY RN on 03/05/201941 Last Action: Continued on 04/04/202228 by Goldie Pedroza Isosorb Dinit/Hydralazine Hcl (Bidil Tablet) 1 Each Tablet, 2 TAB PO TID for for 30 Days, #180 Ref 0 (Reported) Entered as Reported by: REESE WESLEY RN on 03/05/201926 Last Action: Converted on 04/04/202228 by Goldie Pedroza Metoprolol Succinate (Toprol XL) 50 Mg Tab.er.24h, 50 MG PO DAILY for Systolic CHF for 30 Days, #30 Ref 2 Prescribed by: SYLVIA PASTOR MD on 01/15/20 1337 Last Action: Continued on 04/04/202228 by Goldie Pedroza Paroxetine Hcl (Paroxetine Hcl) 40 Mg Tablet, 1 TAB PO DAILY07 for Depression for 90 Days, #90 Prescribed by: SYLVIA PASTOR MD on 07/31/19 1356 Last Action: Converted on 04/04/202228 by Goldie Pedroza Potassium Chloride (Potassium Chloride ) 10 Meq Tab.sr.24h, 30 MEQ PO BID for SUPPLEMENT, (Reported) Entered as Reported by: REESE WESLEY RN on 03/05/201941 Last Action: Continued on 04/04/202228 by Goldie Pedroza Trazodone Hcl (Trazodone Hcl) 50 Mg Tablet, 1 TAB PO HS for sleep, (Reported) Entered as Reported by: Goldie Pedroza on 04/04/202143 Last Action: Continued on 04/04/202228 by Goldie Pedroza Scheduled PRN Acetaminophen (Tylenol) 325 Mg Tablet, 650 MG PO PRN Q6HRS PRN for mild pain/temp for 30 Days, #60 Prescribed by: ROB MCLAIN MD on 04/29/19 1242 Last Action: Continued on 04/04/202228 by Goldie Pedroza Albuterol Sulfate (Proair Hfa) 8.5 Gm Hfa.aer.ad, 2.5 MG NEB PRN Q4HRS PRN for SHORTNESS OF BREATH for 30 Days, #100 Prescribed by: ROB MCLAIN MD on 04/29/19 1242 Last Action: Continued on 04/04/202228 by Goldie Pedroza Justicifation of Admission Dx: Justifications for Admission: Justification of Admission Dx: Yes CHF: Sev. Electrolyte Abnormal BRITTNEY JOHN MD Apr 07, 2020 17:20
--- NOTE | 2020-04-07 18:12 | PDOC ---
PROGRESS NOTES Date of Service DATE: 04/07/20 TIME: 18:10 Subjective Subjective Patient seen and examined Objective Objective Vital Signs Date Time Temp Pulse Resp B/P (MAP) Pulse Ox O2 Delivery O2 Flow Rate FiO2 04/07/20 14:40 87 Room Air 2.0 04/07/20 14:38 98.0 75 84/54 (64) 98.0 04/07/20 12:55 20 Intake and Output 04/07/20 07:00 Intake Total 680 ml Output Total 125 ml Balance 555 ml Intake Oral 680 ml Output Urine Total 125 ml Physical Exam Abdomen: Normal bowel sounds Heart: Regular rate General: mild distress Lungs: Other (Slightly decreased breath sounds) Assessment Assessment Chronic systolic HF. Improved today. Continue on present treatment. NICM/ICM; LVEF 10-15%. Patient would benefit from AICD implantation but this has been deferred secondary to his history of substance abuse/noncompliance CAD s/p PCI/stent to LAD, no chest pain today. AMI ruled out. Continuing present treatment. Hypertension; controlled CKD3: within baseline Polysubstance abuse and noncompliance. Hx of HIV Severe noncompliance. Discussed with the patient. We will arrange office follow-up. Comment Review of Relevant I have reviewed the following items nicolas (where applicable) has been applied. Medications Current Medications Fentanyl Citrate (Fentanyl 2ml Vial) 50 mcg 1X ONCE IVP Last administered on 04/04/20at 19:44; Start 04/04/20 at 18:45; Stop 04/04/20 at 18:46; Status DC Sodium Chloride 1,000 ml @ 1,000 mls/hr 1X ONCE IV Last administered on 04/04/20at 19:43; Start 04/04/20 at 19:15; Stop 04/04/20 at 20:14; Status DC Fentanyl Citrate (Fentanyl 2ml Vial) 50 mcg PRN Q3HRS PRN IV PAIN; Start 04/04/20 at 20:45; Stop 04/05/20 at 04:01; Status DC Acetaminophen (Tylenol) 650 mg PRN Q6HRS PRN PO MILD PAIN / TEMP > 100.3'F; Start 04/04/20 at 22:30 Albuterol Sulfate (Ventolin Neb Soln) 2.5 mg PRN Q4HRS PRN NEB SHORTNESS OF BREATH; Start 04/04/20 at 22:30 Aspirin (Ecotrin) 81 mg DAILY PO Last administered on 04/07/20 10:26; Start 04/05/20 at 09:00 Gabapentin (Neurontin) 300 mg BID PO Last administered on 04/07/20 10:26; Start 04/05/20 at 09:00 Hydroxyzine HCl (Atarax) 25 mg TID PO Last administered on 04/07/20 10:26; Start 04/05/20 at 09:00 Metoprolol Succinate (Toprol Xl) 50 mg DAILY PO Last administered on 04/07/20 10:29; Start 04/05/20 at 09:00 Potassium Chloride (Klor-Con) 30 meq BID PO Last administered on 04/07/20 10:30; Start 04/05/20 at 09:00 Trazodone HCl (Desyrel) 50 mg HS PO Last administered on 04/06/20 21:11; Start 04/05/20 at 21:00 Bumetanide (Bumex) 3 mg BID92 PO Last administered on 04/07/20 10:26; Start 04/05/20 at 09:00 Isosorbide Dinitrate (Isordil) 40 mg TID PO Last administered on 04/07/20 11:43; Start 04/05/20 at 09:00 Paroxetine HCl (Paxil) 40 mg DAILY PO Last administered on 04/07/20 10:25; Start 04/05/20 at 09:00 Guaifenesin/ Codeine Phosphate (Robitussin Ac) 5 ml PRN Q4HRS PRN PO COUGH Last administered on 04/04/20 22:51; Start 04/04/20 at 22:30 Morphine Sulfate (Morphine Sulfate) 4 mg PRN Q2HR PRN IVP SEVERE PAIN 7-10 Last administered on 04/07/20 12:55; Start 04/04/20 at 22:45 Bumetanide (Bumex) 3 mg 1X ONCE PO Last administered on 04/04/20 23:14; Start 04/04/20 at 23:00; Stop 04/04/20 at 23:01; Status DC Trazodone HCl (Desyrel) 50 mg 1X ONCE PO Last administered on 04/04/20 23:14; Start 04/04/20 at 23:00; Stop 04/04/20 at 23:01; Status DC Hydralazine HCl (Apresoline) 75 mg TID PO Last administered on 04/07/20at 11:43; Start 04/05/20 at 09:00 Sennosides (Senna) 17.2 mg PRN BID PRN PO CONSTIPATION, 2nd CHOICE Last administered on 04/06/20at 21:11; Start 04/04/20 at 23:15 Bumetanide (Bumex) 1 mg TID PO ; Start 04/05/20 at 09:00; Status UNV Polyethylene Glycol (miraLAX PACKET) 17 gm PRN DAILY PRN PO CONSTIPATION, 1st CHOICE Last administered on 04/07/20at 10:30; Start 04/05/20 at 09:30 Fentanyl Citrate (Fentanyl 2ml Vial) 50 mcg PRN Q2HR PRN IVP PAIN SEVERE, 2ND CHOICE; Start 04/05/20 at 12:15 Diphenhydramine HCl (Benadryl) 50 mg PRN Q6HRS PRN IVP ITCHING Last administered on 04/06/20at 22:43; Start 04/05/20 at 11:15 Oxycodone/ Acetaminophen (Percocet 5/325) 1 tab PRN Q4HRS PRN PO MODERATE TO SEVERE PAIN; Start 04/07/20 at 17:15 Active Scripts Active Bumetanide 1 Mg Tablet 3 Mg PO BID92 Toprol XL (Metoprolol Succinate) 50 Mg Tab.er.24h 50 Mg PO DAILY 30 Days Paroxetine Hcl 40 Mg Tablet 1 Tab PO DAILY07 90 Days Tylenol (Acetaminophen) 325 Mg Tablet 650 Mg PO PRN Q6HRS PRN 30 Days Proair Hfa (Albuterol Sulfate) 8.5 Gm Hfa.aer.ad 2.5 Mg NEB PRN Q4HRS PRN 30 Days Aspir 81 (Aspirin) 81 Mg Tablet. 1 Tab PO DAILY Reported Trazodone Hcl 50 Mg Tablet 1 Tab PO HS Hydroxyzine Hcl 25 Mg Tablet 25 Mg PO TID Potassium Chloride (Potassium Chloride) 10 Meq Tab.sr.24h 30 Meq PO BID Bidil Tablet (Isosorb Dinit/Hydralazine Hcl) 1 Each Tablet 2 Tab PO TID 30 Days Gabapentin 300 Mg Capsule 300 Mg PO TID Vitals/I & O Vital Sign - Last 24 Hours 04/06/20 04/06/20 04/06/20 04/06/20 19:15 19:50 20:00 20:00 Temp 98.1 98.1 Pulse 76 Resp 18 22 B/P (MAP) 104/79 (87) Pulse Ox 91 83 94 O2 Delivery Nasal Cannula Room Air Nasal Cannula Nasal Cannula O2 Flow Rate 2.0 2.0 2.0 04/06/20 04/06/20 04/06/20 04/06/20 21:10 21:11 22:42 22:45 Temp 97.7 97.7 Pulse 76 76 79 Resp 20 22 B/P (MAP) 104/79 104/79 119/84 (96) Pulse Ox 91 O2 Delivery Room Air Room Air O2 Flow Rate 2.0 04/06/20 04/07/20 04/07/20 04/07/20 23:12 03:12 07:00 08:00 Temp 96.8 97.9 96.8 97.9 Pulse 79 81 Resp 18 B/P (MAP) 91/68 (76) 96/71 (79) Pulse Ox 91 94 93 O2 Delivery Nasal Cannula Room Air Room Air Room Air O2 Flow Rate 2.0 04/07/20 04/07/20 04/07/20 04/07/20 10:29 11:01 11:43 11:43 Temp 98.0 98.0 Pulse 79 74 79 79 B/P (MAP) 104/74 104/74 (84) 106/85 106/85 Pulse Ox 94 O2 Delivery Room Air 04/07/20 04/07/20 04/07/20 04/07/20 12:55 14:00 14:00 14:38 Temp 98.0 98.0 Pulse 79 74 75 Resp 20 B/P (MAP) 84/54 84/54 84/54 (64) Pulse Ox 94 87 O2 Delivery Room Air Room Air O2 Flow Rate 2.0 04/07/20 14:40 Pulse Ox 87 O2 Delivery Room Air O2 Flow Rate 2.0 Intake and Output 04/06/20 04/06/20 04/07/20 15:00 23:00 07:00 Intake Total 240 ml 440 ml Output Total 125 ml Balance 240 ml -125 ml 440 ml Justifications for Admission Other Justification ALEXANDRA MATA MD Apr 07, 2020 18:12
[2020-04-07 19:50] VITALS: BP 113/83
[2020-04-07] MEDS: traZODone 50 MG TABLET. PO SCH (20:33)
[2020-04-07 22:45] VITALS: BP 106/66
[2020-04-08 03:05] VITALS: BP 107/77
[2020-04-08 07:00] VITALS: BP 141/83
[2020-04-08] MEDS: ISOSORBIDE DINITRATE 10 MG TABLET. PO SCH (09:00)
[2020-04-08] MEDS: METOPROLOL SUCC 24HR ER 50 MG TAB.ER.24H. PO SCH (09:00)
[2020-04-08] MEDS: hydrOXYzine 25 MG TABLET PO SCH (09:00)
[2020-04-08] MEDS: PARoxetine 20 MG TABLET PO SCH (09:00)
[2020-04-08] MEDS: GABAPENTIN 300 MG CAPSULE. PO SCH (09:00)
[2020-04-08] MEDS: ASPIRIN ENTERIC COATED 81 MG TABLET.DR. PO SCH (09:00)
[2020-04-08] MEDS: POTASSIUM CHLORIDE 10 MEQ TABLET.ER. PO SCH (09:00)
[2020-04-08] MEDS: hydrALAZINE 25 MG TABLET PO SCH (09:00)
[2020-04-08] MEDS: BUMETANIDE 1 MG TABLET. PO SCH (09:00)
[2020-04-08] MEDS ORDERED: NALOXONE 0.4 MG/ML VIAL. IV PRN (10:45)
[2020-04-08 11:00] VITALS: BP 127/99
--- NOTE | 2020-04-08 12:34 | NUR ---
SS following up with discharge planning. SS reviewed pt chart and discussed with pt RN. Pt is currently on room air. Per RN, pt is ad ekaterina. No PT needs. Discharge plan is to home when medically ready. Discharge order on the chart for home with self care.
--- NOTE | 2020-04-08 14:15 | NUR ---
Discharge Note: ALLA JACK Discharge instructions and discharge home medications reviewed with Patient and a copy given. All questions have been answered and understanding verbalized. The following instructions and handouts were given: Bumex, tramadol, CHF, Patient discharged to home with self care via private vehicle. IV out, monitor off and placed at nurse station.
--- NOTE | 2020-04-08 20:32 | PDOC ---
[facility] PROGRESS NOTE Date of Service DOS: DATE: 04/08/20 TIME: 20:29 Chief Complaint Chief Complaint CHIEF COMPLAINT: Shortness of breath. History of Present Illness History of Present Illness 04/08: Seen and evaluated. Multiple vague complaints, but overal feeling better after diuresis. He was unable to discharge home yesterday due to inability to obtain a late ride. >30 min spent managing the discharge of this patient. 04/07: Patienty seen and evaluated. Feeling better today, s/p diuresis. No cardiac work-up planned. 04/06 - Pt is somnolent, but arousable. Complains of dry mouth, discussed fluid, and salt restriction. Pt has noticed gain of weight, abd distention, LE edema prior to arrival which has since resolved. Pt states that overall he feels better. The patient is a pleasant 39-year-old male who we admit weekly. I think he is noncompliant with the meds we sent him home with. He does have severe cardiomyopathy with 15% ejection fraction. Once again, chest x-ray showing cardiomegaly and vascular congestion. His labs shows elevated [place] 5642. Clinically, appears to be in congestive heart failure. I discussed the case with ER physician. We are going to admit the patient and consult Cardiology. Vitals/I&O Vitals/I&O: Vital Signs Date Time Temp Pulse Resp B/P (MAP) Pulse Ox O2 Delivery O2 Flow Rate FiO2 04/08/20 11:00 94.9 64 20 127/99 (108) 97 Nasal Cannula 2.0 94.9 I & O 04/07/20 04/07/20 04/08/20 15:00 23:00 07:00 Intake Total 800 ml 440 ml Output Total 150 ml Balance 650 ml 440 ml Physical Exam Physical Exam: Gen : Sleepy, drifts in and out of arousal. Appears to be SOB with speech. No LE edema noted bilaterally. General: mild distress Heart: Regular rate Lungs: Wheezing, Crackles Abdomen: Normal bowel sounds Extremities: No clubbing, No cyanosis, No edema, No tenderness/swelling Skin: No rashes Comment Review of Relevant I have reviewed the following items nicolas (where applicable) has been applied. Justifications for Admission Other Justification BRITTNEY JOHN MD Apr 08, 2020 20:32
== END 2020-04-08 12:40 | disposition home or self-care (01) | DRG 291 ==
LOC: ER 17:10 → 2 NORTH 20:49 → OBSVTOIN 04-07 11:37
PROVIDERS: ADMIT Internal Medicine; ATTEND Internal Medicine
DX: I13.0 Hypertensive heart and chronic kidney disease with heart failure and stage 1 through stage 4 chronic kidney disease, or unspecified chronic kidney disease (principal); I50.43 Acute on chronic combined systolic (congestive) and diastolic (congestive) heart failure; F31.9 Bipolar disorder, unspecified; I42.8 Other cardiomyopathies; N18.30 Chronic kidney disease, stage 3 unspecified; I25.10 Atherosclerotic heart disease of native coronary artery without angina pectoris; I50.84 End stage heart failure; I25.5 Ischemic cardiomyopathy; F41.9 Anxiety disorder, unspecified; R05 Cough; R40.0 Somnolence; R16.0 Hepatomegaly, not elsewhere classified; R07.89 Other chest pain; Z21 Asymptomatic human immunodeficiency virus [HIV] infection status; F19.10 Other psychoactive substance abuse, uncomplicated; G47.33 Obstructive sleep apnea (adult) (pediatric); Z87.891 Personal history of nicotine dependence; Z95.5 Presence of coronary angioplasty implant and graft; Z91.19 Patient's noncompliance with other medical treatment and regimen; Z91.14 Patient's other noncompliance with medication regimen; Z83.3 Family history of diabetes mellitus; I25.2 Old myocardial infarction
CPT/HCPCS: 36415; 71111; 74176; 80053; 80307; 81001; 83690; 83880; 84484; 85007; 85025; 85379; 93005; 94760; 96374; 99285; G0378; G0379; G0480; J1200; J2270; J3010; J7030